=== PATIENT | male | born 1955 | race Caucasian/White ===

== ENCOUNTER → 2016-05-20 | Outpatient (CLI) | payer OTHER ==
[~2016-05-20] MED LIST: ADVIN50050 INH; ASPI81TA25 PO; CRDCD180 PO; HYDR-5688 PO; IPRA1AER2 INH; METO50TA7 PO; MULT-506 PO; OXGN; TAMS0.4C59 PO
== END | disposition home or self-care (01) ==
LOC: C.LAB 11:35
PROVIDERS: ATTEND Urology
DX: N40.1 Benign prostatic hyperplasia with lower urinary tract symptoms (principal)

== ENCOUNTER → 2016-05-26 | Outpatient (CLI) | payer OTHER ==
[~2016-05-26] MED LIST changes: +OPTIRAY 320 IV PRN
--- NOTE | 2016-05-26 10:40 | DIAGNOSTIC IMAGING REPORT ---
CT SCAN OF THE CHEST WITH IV CONTRAST CLINICAL HISTORY: Non-small cell lung cancer. COMPARISON STUDY: Chest CT scans dated 12/23/2015 and 05/23/2013. TECHNIQUE: Following the IV administration of 92 cc of Optiray 320, CT scan of the thorax was performed from the thoracic inlet to the upper abdomen. Images are reviewed in the axial, sagittal, and coronal planes. IV contrast was administered without complication. CT DOSE: 350.08 mGy.cm FINDINGS: Thyroid: Imaged portions of the thyroid gland are normal in size and attenuation. Thoracic aorta: There is mild atherosclerotic calcification of the thoracic aorta, which is normal in caliber and demonstrates standard 3-vessel arch anatomy. No dissection is seen. Pulmonary vasculature: The pulmonary trunk is normal in caliber. There are no filling defects identified in the central pulmonary vessels to indicate pulmonary embolus. Note that this examination was not protocoled for evaluation of the pulmonary arteries. Heart: The heart is normal in size and configuration, and without pericardial effusion. There are coronary artery calcifications. Lungs and pleural spaces: Advanced emphysema is noted. Again seen are postoperative changes/scarring and volume loss from right upper lobe pulmonary resection. There is mild compensatory hyperinflation of the left lung. No airspace consolidation or pleural effusion is identified. No concerning lesions are identified in the left lung. A 4 mm curvilinear nodular density at the right lung base on image #227 and 3 mm pulmonary pleural-based nodules in the left lower lobe on images #212 and 241 are unchanged dating back to 2013 and of doubtful significance. No concerning pulmonary lesion is identified. Minimal secretions are noted in the trachea. Mediastinum: There is no mediastinal lymphadenopathy. Janice: Clear. Axillae: There is no axillary lymphadenopathy. Upper abdomen: A tiny hiatal hernia is identified. Scattered subcentimeter hepatic hypodensities are too small for definitive characterization but similar to previous. Cholecystectomy clips are noted. No adrenal lesion is seen. Skeletal structures: The skeletal structures are osteopenic. No lytic or blastic bony lesions are seen. IMPRESSION: 1. Advanced emphysema and postoperative change from right upper lobe pulmonary resection. 2. There is no evidence of recurrent or metastatic disease in the thorax. 3. No airspace consolidation or pleural effusion is identified. 4. Additional findings as above. Electronically signed by: Shimon Stroud M.D. 05/26/2016 10:39 AM Dictated Date/Time: 05/26/2016 10:31 AM
== END | disposition home or self-care (01) ==
LOC: C.CTS 09:53
PROVIDERS: ATTEND Internal Medicine Hematology & Oncology
DX: C34.11 Malignant neoplasm of upper lobe, right bronchus or lung (principal); J43.9 Emphysema, unspecified; M85.80 Other specified disorders of bone density and structure, unspecified site

== ENCOUNTER → 2016-06-14 | Day surgery (SDC) | payer OTHER ==
[2016-06-08 08:50] VITALS: Ht 181.6 cm; Wt 95.5 kg
[~2016-06-14] VITALS: Ht 181.6 cm; Wt 95.5 kg
[~2016-06-14] MED LIST changes: -CRDCD180 PO; -HYDR-5688 PO; +LIDOCAINE HCL 2% 2 ML VIAL (20MG/ML) ONE; -OPTIRAY 320 IV PRN; +PROPOFOL IV EMULSION 10 MG/ML 20 ML VIAL IV ONE
--- NOTE | 2016-06-14 13:08 | Endo History and Physical ---
History & Physical Date of Service: Jun 14, 2016. Chief Complaint: screening Referring Physician: Dr. Rich Park and Dr.Tania Mccollum History of Present Illness For colonoscopy Past Medical History Thrombophlebitis, COPD Past Surgical History Hx Cardiac Surgery: No Hx Internal Defibrillator: No Hx Pacemaker: No Hx Abdominal Surgery: Yes (ALEJANDRO, APPY) Hx of Implantable Prosthesis: No Hx Post-Op Nausea and Vomiting: No Hx Cancer Surgery: Yes (RIGHT UPPER LOBE REMOVAL AND PARTIAL RIB RESECTION) Hx Thoracic Surgery: No Hx Orthopedic: Yes (C5-6 FUSION (SLIGHT LIMITED L-R), LUMBAR LAMINECTOMY) Hx Urinary Tract Surgery: No Family History Polyp Social History Smoking Status: Former Smoker Hx Substance Use: No Hx Alcohol Use: Yes (SOCIAL) Allergies Coded Allergies: BEE STING (Verified Allergy, Unknown, LOCAL SWELLING, 06/08/16) Diltiazem (Verified Allergy, Unknown, REDNESS "MADE ME LOOK LIKE A STRAWBERRY", 06/08/16) Current Medications Reported Home Medications Medications Dose Route/Sig Max Daily Dose Days Date Category Dose Instructions Oxygen Gas 2 Liters NA HS 06/08/16 Reported 3L NC O2 DURING DAY WITH STRENUOUS EXERCISE Combivent Respimat (Ipratropium-Albuterol) 1 Aer Aer 1 Puffs INH QID PRN 06/08/16 Reported Advair Diskus 500-50 Mcg/Dose (Fluticasone Prop/Salmeterol) 14 Puff/1 Inhaler Aerp 1 Puff INH BID 06/08/16 Reported Toprol-Xl (Metoprolol Succinate) 50 Mg Tabcr 50 Mg PO QAM 06/08/16 Reported Multivitamin (Multivitamins) Tab 1 Tab PO QAM 01/05/16 Reported Aspir-Low (Aspirin) 81 Mg Tab 1 Tab PO QPM 12/03/13 Reported Flomax (Tamsulosin Hcl) 0.4 Mg Cap 0.4 Mg PO QPM 03/09/12 Reported Vital Signs Weight (Kilograms): 95.45 Height (Feet): 5 Height (Inches): 11.5 Date Time Temp Pulse Resp B/P Pulse Ox O2 Delivery O2 Flow Rate FiO2 06/14/16 12:33 36.5 100 20 125/64 95 Room Air Physical Exam General Appearance: WD/WN Respiratory/Chest: Respiratory effort: no dyspnea Cardiovascular: Heart Auscultation: RRR Abdomen: Inspection & Palpation: soft Assessment and Plan For screening colonoscopy
--- NOTE | 2016-06-14 13:27 | GI REPORT ---
Procedure Date: 06/14/2016 12:53 PM Procedure: Colonoscopy Indications: Screening for colorectal malignant neoplasm Medicines: Propofol total dose 225 mg IV, Lidocaine 40 mg IV Complications: No immediate complications. Estimated Blood Loss: Estimated blood loss: none. Procedure: Pre-Anesthesia Assessment: - Prior to the procedure, a History and Physical was performed, and patient medications, allergies and sensitivities were reviewed. The patient's tolerance of previous anesthesia was reviewed. - The risks and benefits of the procedure and the sedation options and risks were discussed with the patient. All questions were answered and informed consent was obtained. After I obtained informed consent, the scope was passed under direct vision. Throughout the procedure, the patient's blood pressure, pulse, and oxygen saturations were monitored continuously. The Scope was introduced through the anus and advanced to the cecum, identified by appendiceal orifice and ileocecal valve. The colonoscopy was performed without difficulty. The patient tolerated the procedure well. The quality of the bowel preparation was excellent. Findings: Multiple diverticula were found in the entire colon. Impression: - Diverticulosis in the entire examined colon. - No specimens collected. Recommendation: - Discharge patient to home (ambulatory). - Continue present medications. - Repeat colonoscopy in 10 years for screening purposes. - Return to primary care physician PRN. Trevor Whitlock M.D. Trevor Whitlock MD 06/14/2016 1:25:45 PM This report has been signed electronically. Note Initiated On: 06/14/2016 12:53 PM I attest to the content of the Intraoperative Record and orders documented therein, exceptions below
--- NOTE | 2016-06-14 13:41 | Discharge Instructions ---
Endoscopy Patient Instructions Date / Procedure(s) Performed Jun 14, 2016. Colonoscopy Allergy Information Coded Allergies: BEE STING (Verified Allergy, Unknown, LOCAL SWELLING, 06/08/16) Diltiazem (Verified Allergy, Unknown, REDNESS "MADE ME LOOK LIKE A STRAWBERRY", 06/08/16) Discharge Date / Findings Jun 14, 2016. Diverticulosis Medication Instructions Stopped Medication(s): last dose ASA on 06/10 Restart Stopped Medication(s): resume meds Reported Home Medications Medications Dose Route/Sig Max Daily Dose Days Date Category Dose Instructions Oxygen Gas 2 Liters NA HS 06/08/16 Reported 3L NC O2 DURING DAY WITH STRENUOUS EXERCISE Combivent Respimat (Ipratropium-Albuterol) 1 Aer Aer 1 Puffs INH QID PRN 06/08/16 Reported Advair Diskus 500-50 Mcg/Dose (Fluticasone Prop/Salmeterol) 14 Puff/1 Inhaler Aerp 1 Puff INH BID 06/08/16 Reported Toprol-Xl (Metoprolol Succinate) 50 Mg Tabcr 50 Mg PO QAM 06/08/16 Reported Multivitamin (Multivitamins) Tab 1 Tab PO QAM 01/05/16 Reported Aspir-Low (Aspirin) 81 Mg Tab 1 Tab PO QPM 12/03/13 Reported Flomax (Tamsulosin Hcl) 0.4 Mg Cap 0.4 Mg PO QPM 03/09/12 Reported Provider Instructions Activity Restrictions - No exercising or heavy lifting for 24 hours. - Do not drink alcohol the day of the procedure. - Do not drive a car or operate machinery until the day after the procedure. - Do not make any important decisions or sign important papers in 24 hours after the procedure. Following Day: - Return to full activity which may include returning to work/school. Diet Start your diet with liquids and light foods (jello, soup, juice, toast). Then eat your usual diet if not nauseated. Treatment For Common After Affects For mild abdominal pain, bloating, or excessive gas: - Rest - Eat lightly - Lie on right side Follow-Up Information Follow-up with Dr. Rich Park and Dr.Tania Mccollum as scheduled Anesthesia Information What You Should Know You have had a procedure that required some medicine to reduce anxiety and discomfort. This treatment is called moderate sedation. After receiving the treatment, you may be sleepy, but you will be able to breathe on your own. The effects of the treatment may last for several hours. Follow these instructions along with Activity/Diet recommendations noted above: * Do NOT do anything where dizziness or clumsiness would be dangerous. * Rest quietly at home today, then you can be up and about tomorrow. * Have a responsible person stay with you the rest of today. * You may have had an I.V. today. If so, you may take the dressing off later today. Recommendations Call your doctor if: * Trouble breathing * Continuous vomiting for more than 24 hours * Temperature above 101 degrees * Severe abdominal pain or bloating * Pain not relieved by pain medicine ordered * There is increased drainage or redness from any incision * A large amount of rectal bleeding greater than 2-3 tablespoons. (If you had a polyp/s removed or have hemorrhoids, a small amount of blood - from the rectum is to be expected.) * You have any unanswered questions or concerns. IN THE EVENT OF A SERIOUS EMERGENCY, GO TO THE NEAREST EMERGENCY ROOM Your discharge instructions were prepared by provider Trevor Whitlock. Patient Instructions Signature Page Rodney Payan Patient (or Guardian) Signature/Date: I have read and understand the instructions given to me by my caregivers. Caregiver/RN/Doctor Signature/Date: The above-named patient and/or guardian has received patient instructions on this date. + Original Patient Signature Page (only) stays with chart. Please make copy for patient.
[2016-06-14 14:06] VITALS: BP 132/81; PULSE 87; O2SAT 95
--- NOTE | 2016-06-14 14:55 | Anesthesiology Progress Note ---
Anesthesia Post Op Note Date & Time Jun 14, 2016 at 14:54 Vital Signs Pain Intensity: 0 Vital Signs Past 12 Hours Date Time Temp Pulse Resp B/P Pulse Ox O2 Delivery O2 Flow Rate FiO2 06/14/16 14:06 87 20 132/81 95 Room Air 06/14/16 13:48 89 20 113/85 95 Room Air 06/14/16 13:38 89 20 105/60 99 Room Air 06/14/16 12:33 36.5 100 20 125/64 95 Room Air Notes Mental Status: alert / awake / arousable, participated in evaluation Pt Amnestic to Procedure: Yes Nausea / Vomiting: adequately controlled Pain: adequately controlled Airway Patency, RR, SpO2: stable & adequate BP & HR: stable & adequate Hydration State: stable & adequate Anesthetic Complications: no major complications apparent
== END | disposition home or self-care (01) ==
LOC: C.GI 12:12
PROVIDERS: ATTEND Internal Medicine Gastroenterology
DX: Z12.11 Encounter for screening for malignant neoplasm of colon (principal); K57.30 Diverticulosis of large intestine without perforation or abscess without bleeding; Z86.72 Personal history of thrombophlebitis; J44.9 Chronic obstructive pulmonary disease, unspecified; Z90.89 Acquired absence of other organs; Z90.49 Acquired absence of other specified parts of digestive tract; Z85.118 Personal history of other malignant neoplasm of bronchus and lung; Z98.1 Arthrodesis status; Z87.891 Personal history of nicotine dependence; Z91.030 Bee allergy status; Z88.8 Allergy status to other drugs, medicaments and biological substances; Z79.82 Long term (current) use of aspirin; Z83.71 Family history of colonic polyps; Z99.81 Dependence on supplemental oxygen; Z86.711 Personal history of pulmonary embolism; I10 Essential (primary) hypertension; Z92.21 Personal history of antineoplastic chemotherapy; Z92.3 Personal history of irradiation; I42.9 Cardiomyopathy, unspecified

== ENCOUNTER → 2016-12-01 | Outpatient (CLI) | payer OTHER ==
[~2016-12-01] MED LIST changes: -LIDOCAINE HCL 2% 2 ML VIAL (20MG/ML) ONE; -PROPOFOL IV EMULSION 10 MG/ML 20 ML VIAL IV ONE
--- NOTE | 2016-12-01 09:01 | DIAGNOSTIC IMAGING REPORT ---
CHEST 2 VIEWS ROUTINE HISTORY: 61 years-old Male NON-SMALL CELL LUNG CANCER C34.11 follow-up study in a patient with history of non-small cell lung cancer. COMPARISON: Radiograph 12/27/2015, chest CT 01/26/2017 TECHNIQUE: Frontal and lateral views of the chest FINDINGS: Cardiac silhouette is within normal limits. There is no pneumothorax, pleural effusion or focal airspace consolidation. There is chronic blunting of the right costophrenic angle. Postsurgical changes are again seen in the right upper lobe with background emphysema and hyperinflation. Reticular opacities in the lung bases and right perihilar region are unchanged suggesting scarring. Degenerative changes are seen about the bilateral shoulders. IMPRESSION: 1. No acute cardiopulmonary process. 2. Emphysema with postsurgical changes of the right upper lobe redemonstrated. The above report was generated using voice recognition software. It may contain grammatical, syntax or spelling errors. Electronically signed by: Rob Mendoza M.D. 12/01/2016 8:59 AM Dictated Date/Time: 12/01/2016 8:57 AM
== END | disposition home or self-care (01) ==
LOC: C.RAD 08:31
PROVIDERS: ATTEND Internal Medicine Hematology & Oncology
DX: C34.11 Malignant neoplasm of upper lobe, right bronchus or lung (principal)

== ENCOUNTER → 2016-12-03 | Outpatient (CLI) | payer OTHER ==
--- NOTE | 2016-12-03 11:07 | DIAGNOSTIC IMAGING REPORT ---
Right knee 2 views CLINICAL HISTORY: Right knee pain and COMPARISON: None. DISCUSSION: No acute fractures or dislocations are visualized. There are no erosive or destructive changes. There is a tiny dorsal patellar spur. There is equivocal trace joint effusion IMPRESSION: 1. Minor degenerative change. No fractures. No destructive lesions are visualized. Electronically signed by: Gustabo Rushing M.D. 12/03/2016 11:06 AM Dictated Date/Time: 12/03/2016 11:02 AM
== END | disposition home or self-care (01) ==
LOC: C.RAD1850 10:50
PROVIDERS: ATTEND Family Medicine
DX: M25.561 Pain in right knee (principal)

== ENCOUNTER → 2016-12-22 | Outpatient (CLI) | payer OTHER ==
--- NOTE | 2016-12-22 13:23 | DIAGNOSTIC IMAGING REPORT ---
ULTRASOUND VENOUS DOPPLER LWR EXT BILA CLINICAL HISTORY: M79.89 Leg swelling. Prior history of DVT. COMPARISON STUDY: September 2011 FINDINGS: Real-time and color flow Doppler imaging were performed. Flow was seen within the femoral, popliteal and calf veins with no intraluminal thrombus demonstrated. The saphenous vein is patent. IMPRESSION: No evidence of lower extremity DVT. Electronically signed by: Gustabo Rushing M.D. 12/22/2016 1:22 PM Dictated Date/Time: 12/22/2016 1:22 PM
== END | disposition home or self-care (01) ==
LOC: C.ULTRBC 12:24
PROVIDERS: ATTEND Internal Medicine Pulmonary Disease
DX: M79.89 Other specified soft tissue disorders (principal)

== ENCOUNTER → 2017-05-16 | Outpatient (CLI) | payer OTHER ==
[~2017-05-16] MED LIST changes: -METO50TA7 PO; +METO50TA8 PO
[2017-05-16 10:31] LABS: BLOOD UREA NITROGEN 16 mg/dl (7-18); CREATININE 1.24 mg/dl (0.60-1.40)
== END | disposition home or self-care (01) ==
LOC: C.LABSPEC 08:19
PROVIDERS: ATTEND Urology
DX: N48.6 Induration penis plastica (principal)

== ENCOUNTER → 2017-05-26 | Outpatient (CLI) | payer OTHER ==
[~2017-05-26] MED LIST changes: +OPTIRAY 320 IV PRN
--- NOTE | 2017-05-26 11:22 | DIAGNOSTIC IMAGING REPORT ---
CHEST CT WITH CONTRAST CT DOSE: 522.14 mGy.cm HISTORY: Lung cancer. Follow-up. TECHNIQUE: Multiaxial CT images of the chest were performed following the intravenous administration of contrast. A dose lowering technique was utilized adhering to the principles of ALARA. COMPARISON: Chest CT 05/26/2016. FINDINGS: No pneumothorax. No pleural effusions. Severe emphysema is again noted. Postoperative changes consistent with a right upper lobectomy. Focal severe narrowing at the proximal right middle lobe bronchus best seen on image 142 remains unchanged. Right hilar suture material is again noted. No new soft tissue nodularity to suggest recurrent disease. Focal calcified pleural plaque within the right posterior hemithorax remains unchanged. Stable mild loss within the right hemithorax due to the postoperative changes. Stable 7 mm subpleural nodule seen within the left lower lobe on image 237. Stable 3 mm subpleural nodule within the left lower lobe and stable 4 mm subpleural nodule within the left lower lobe on images 201 and 225, respectively. Stable 7 mm nodular density within the right lung base in image 210. No new or suspicious pulmonary nodules identified. No focal lung consolidations. Mild paramediastinal fibrotic change is again noted. No suspicious lytic or blastic osseous lesions. Partial resection of the right first and second ribs. Cholecystectomy. Hepatic steatosis. The spleen and adrenal glands are unremarkable. Right apical extrapleural thickening, unchanged. No mediastinal or hilar lymphadenopathy. The central pulmonary arteries are patent. Normal caliber thoracic aorta. IMPRESSION: 1. No significant change compared the prior study. No evidence for recurrent or metastatic disease within the chest. 2. Postoperative changes as described above. 3. Emphysema. Electronically signed by: Terrance Chen M.D. 05/26/2017 11:20 AM Dictated Date/Time: 05/26/2017 11:08 AM
== END | disposition home or self-care (01) ==
LOC: C.CTS 10:21
PROVIDERS: ATTEND Internal Medicine Hematology & Oncology
DX: C34.11 Malignant neoplasm of upper lobe, right bronchus or lung (principal); J43.9 Emphysema, unspecified

== ENCOUNTER 2017-06-30 13:29 | Inpatient (IN) | payer OTHER ==
[~2017-06-30] VITALS: Ht 180.3 cm; Wt 101.0 kg
[~2017-06-30 13:29] MED LIST changes: -OPTIRAY 320 IV PRN
[2017-06-30] MEDS ORDERED: SODIUM CHLORIDE 0.9% 1000ML 1,000 ML IV STA (13:59)
[2017-06-30] MEDS ORDERED: ONDANSETRON INJ 2 MG/ML 2 ML VIAL IV STA (13:59)
[2017-06-30] MEDS ORDERED: BENZONATATE 100MG CAP PO ONE ×2 (14:00→23:15)
[2017-06-30] MEDS ORDERED: TAMS0.4C38 PO (14:01)
[2017-06-30] MEDS ORDERED: NYSS/ PO (14:01)
[2017-06-30] MEDS ORDERED: ALBINSX INH (14:02)
[2017-06-30 14:25] LABS: BASO % 0.2 %; BASO ABS # 0.01 K/uL (0-0.2); EOS % 1.8 %; EOS ABS # 0.11 K/uL (0-0.5); HEMATOCRIT 38.7 % (42-52); HEMOGLOBIN 13.2 g/dL (14.0-18.0); IG# 0.01 K/uL (0.00-0.02); LYMPH % 16.9 %; LYMPH ABS # 1.06 K/uL (1.2-3.4); MEAN CELL VOLUME 86.8 fL (80-100); MEAN CORPUSCULAR HEMOGLOBIN 29.6 pg (25-34); MEAN CORPUSCULAR HGB CONC 34.1 g/dl (32-36); MEAN PLATELET VOLUME 9.7 fL (7.4-10.4); MONO % 7.7 %; MONO ABS # 0.48 K/uL (0.11-0.59); NEUT % 73.2 %; NEUT ABS # 4.59 K/uL (1.4-6.5); PLATELET COUNT 153 K/uL (130-400); RED CELL DISTRIBUTION WIDTH CV 13.5 % (11.5-14.5); WHITE BLOOD COUNT 6.26 K/uL (4.8-10.8)
--- NOTE | 2017-06-30 14:31 | DIAGNOSTIC IMAGING REPORT ---
SINGLE VIEW CHEST CLINICAL HISTORY: Cough and fever FINDINGS: 2 AP, portable, upright chest radiographs are compared to study dated 12/01/2016 and correlated with chest CT dated 05/26/2017. The examination is degraded by portable technique and patient rotation. The heart is enlarged. The pulmonary vasculature is noncongested. Advanced emphysema is similar to previous and there are postoperative changes and volume loss from right-sided pulmonary resection. There is no airspace consolidation typical for pneumonia or large pleural effusion. Bullous change is seen at the right apex. No pneumothorax is seen. The skeletal structures are osteopenic. Postoperative change is noted in the right sided ribs. IMPRESSION: 1. No acute cardiopulmonary abnormality. 2. Cardiomegaly, advanced emphysema, and postoperative change from right-sided pulmonary resection as above. Electronically signed by: Shimon Stroud M.D. 06/30/2017 2:30 PM Dictated Date/Time: 06/30/2017 2:28 PM
[2017-06-30 14:32] LABS: ISTAT CREATININE 1.1 mg/dl (0.6-1.3); ISTAT IONIZED CALCIUM 1.17 mmol/l (1.12-1.32)
[2017-06-30 14:40] LABS: BLOOD UREA NITROGEN 17 mg/dl (7-18); CALCIUM 8.5 mg/dl (8.5-10.1); CARBON DIOXIDE 28 mmol/L (21-32); CREATININE 1.22 mg/dl (0.60-1.40); GLUCOSE 118 mg/dl (70-99); SODIUM 135 mmol/L (136-145)
[2017-06-30 15:02] LABS: INFLUENZA B ANTIGEN Neg for Influ B (NEG)
[2017-06-30] MEDS ORDERED: LEVAQUIN 750MG / 150ML D5W IV STA (15:29)
[2017-06-30] MEDS ORDERED: METHYLPREDNISOLONE 125 MG VIAL IV STA (15:29)
[2017-06-30] MEDS ORDERED: ALBUTEROL 0.083% NEBU SOLN 3 ML VIAL INH STA (15:38)
[2017-06-30] MEDS ORDERED: OPTIRAY 320 IV PRN (15:45)
--- NOTE | 2017-06-30 16:22 | DIAGNOSTIC IMAGING REPORT ---
CT ANGIOGRAPHY OF THE CHEST, PULMONARY EMBOLUS PROTOCOL CLINICAL HISTORY: Tachycardia, hypoxia and cough. Chest discomfort. History of lung cancer. COMPARISON STUDY: Chest CT May 26, 2017 and chest radiograph performed earlier today. TECHNIQUE: Following IV administration of 93 mL of Optiray-320, helical axial images of the chest were obtained utilizing the pulmonary embolus protocol. Maximal intensity projections and sagittal and coronal reformats were viewed on an independent 3D workstation. IV contrast was administered without complication. A dose lowering technique was utilized adhering to the principles of ALARA. CT DOSE: 619.96 mGy.cm FINDINGS: No pulmonary emboli are identified although the segmental and subsegmental arteries are suboptimally assessed due to respiratory motion artifact. There is no evidence for thoracic aortic dissection. There is no pericardial effusion. No enlarged axillary, mediastinal or hilar lymph nodes are present. The patient is status post right upper lobectomy. Resection of multiple right upper ribs is noted. The postoperative appearance is unchanged. Severe emphysema is noted. A few pulmonary nodules are unchanged from earlier exams. These are benign given stability. There has been interval development of mild opacity within the lateral basilar segment of the right lower lobe since CT of May 26, 2017. There is no pneumothorax or pleural effusion. Mild bronchial wall thickening with mucus plugging within the left lower lobe is noted. No suspicious osseous lesion is present. Upper abdomen is unremarkable. Gallbladder is surgically absent. IMPRESSION: 1. No pulmonary emboli identified although segmental and subsegmental pulmonary arteries suboptimally assessed due to respiratory motion. 2. Status post right upper lobectomy. No evidence for recurrent malignancy within the chest. 3. Severe emphysema. 4. Interval development of mild opacity within the lateral basilar segment of the right lower lobe which may reflect a mild infectious process or atelectasis. Electronically signed by: Alexandr Pompa M.D. 06/30/2017 4:21 PM Dictated Date/Time: 06/30/2017 4:08 PM
[2017-06-30] MEDS ORDERED: HYDROCODONE/HOMATROPINE SYRUP 5MG/1.5MG 5ML UDP PO STA (17:07)
[2017-06-30] MEDS ORDERED: VANCOMYCIN CONSULT ACTIVE PRN (18:30)
[2017-06-30] MEDS ORDERED: CEFEPIME IV 2,000 MG in DEXTROSE 5% 100ML 100 ML IV SCH (18:30)
[2017-06-30] MEDS ORDERED: IPRATROPIUM BROMIDE/ALBUTEROL respimat INH INH PRN (18:30)
[2017-06-30] MEDS ORDERED: GUAIFENESIN 600 MG TABCR PO PRN (18:30)
[2017-06-30] MEDS ORDERED: ZOLPIDEM TARTRATE 5 MG TAB PO PRN ×2 (18:45)
[2017-06-30] MEDS ORDERED: POLYETHYLENE (MIRALAX) 17 GM PACK PO PRN (18:45)
[2017-06-30] MEDS ORDERED: MAGNESIUM HYDROXIDE SUSP 30 ML UDC PO PRN (18:45)
[2017-06-30] MEDS ORDERED: ONDANSETRON INJ 2 MG/ML 2 ML VIAL IV PRN (18:45)
[2017-06-30] MEDS ORDERED: ACETAMINOPHEN 325 MG TAB PO PRN (18:45)
[2017-06-30] MEDS ORDERED: ALUMINUM/MAGNESIUM/SIMETH (MAALOX MAX) 30 ML UDC PO PRN (18:45)
--- NOTE | 2017-06-30 18:46 | History and Physical ---
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 Patient also has COPD, chronic respiratory failure on 2-3 L oxygen at home, DJD status post spine fusion surgery, remote tobacco abuse and remote history of atrial flutter. Patient was at his baseline and tell about 1 month ago when he had severe upper respiratory tract infection, treated with doxycycline/prednisone. Followed by 2 courses of prednisone throughout the last month with minimal improvement. Last night he had severe diaphoresis, he woke up from sleep soaked with sweat. He also had continuous severe cough that appears to be nonproductive as he is unable to bring up any mucus from his chest . He was also breathing rapidly and had a heart rate of 130, home nebulizer did not help him with his symptoms . Then he developed right-sided and left-sided chest pain with cough, he presented to the ED for further evaluation and management . Never took his temperature with complaints of excessive diaphoresis/sweating Denies any abdominal pain, denies any burning sensation in the urine, admits to intermittent blood in the stool that has been worked out as an outpatient Past Medical/Surgical History Medical Problems: (1) Abdominal pain (2) COPD (chronic obstructive pulmonary disease) (3) COPD exacerbation (4) Hypoxia (5) Pancreatitis (6) Rectus sheath hematoma (7) Tachycardia Surgical Problems: (1) Hx of cholecystectomy (2) Hx of fusion of cervical spine Family History Gallbladder disease Heart disease Hypertension Lung disease Social History Smoking Status: Former Smoker Drug Use: none Marital Status: Housing status: lives with significant other Occupational Status: disabled Immunizations History of Tetanus Vaccine?: UNKNOWN History of Hepatitis B Vaccine: No Allergies Coded Allergies: BEE STING (Verified Allergy, Unknown, LOCAL SWELLING, 06/30/17) Diltiazem (Verified Allergy, Unknown, REDNESS "MADE ME LOOK LIKE A STRAWBERRY", 06/30/17) Home Medications Scheduled Aspirin (Aspir-Low), 81 MG PO QPM Fluticasone Prop/Salmeterol (Advair Diskus 500-50 Mcg/Dose), 1 PUFF INH BID Home O2 Therapy (Oxygen), 2 LITERS NA HS Metoprolol Succ (Toprol Xl) (Toprol-Xl), 50 MG PO QAM Multivitamin (Multivitamin), 1 TAB PO QAM Nystatin (Nystatin Suspension), 5 ML PO TID Tamsulosin Hcl (Flomax), 0.4 MG PO DAILY Scheduled PRN Albuterol Sulf (Albuterol Sulfate), 1 DOSE INH Q4H PRN for Shortness of Breath Ipratropium-Albuterol (Combivent Respimat), 1 PUFFS INH QID PRN for SOB/Wheezing Review of Systems Review of system Constitutional: fever / chills /excessive sweats /generalized weakness and fatigue Eyes: no blurring of vision / no eye pain / no discharge / no redness ENT: no hearing loss / no epistaxis /no swallowing problems Respiratory: Persistent cough /persistent wheezing significant SOB / no hemoptysis Cardiovascular: Pleuritic chest pain / no lower extremity edema / no palpitation Abdomen: no pain / no nausea / no vomiting / no constipation, intermittent blood in stool Musculoskeletal: no joint pain / no muscle pain / no joint swelling Genitourinary: no dysuria / no incontinence / no urinary retention Neurologic: no focal weakness / no numbness/tingling / no ataxia Psychiatric: no depression symptoms / no anxiety / no insomnia Endocrine: no excessive thirst / no excessive urination Hematologic: no abnormal bleeding / no bruising / no LN swelling Skin: No rash / no pallor Physical Exam Vital Signs Date Time Temp Pulse Resp B/P (MAP) Pulse Ox O2 Delivery O2 Flow Rate FiO2 06/30/17 17:15 131 28 112/62 94 Nasal Cannula 3.0 06/30/17 16:37 125 28 114/70 100 Nebulizer 7.0 06/30/17 15:11 125 32 96/68 95 Nasal Cannula 3.0 06/30/17 13:54 97 Nasal Cannula 3.0 06/30/17 13:32 36.6 102 22 119/64 97 Nasal Cannula 3.0 Physical examination General patient appears to be in moderate acute distress HEENT: Atraumatic , normocephalic /no jaundice /no pallor /anicteric /no dry mucous membrane /normal external ear inspection Neck: Supple /no swelling /central trach Heart: S1/S2 tachycardia /regular rate and rhythm/no gallop /no rub /no murmur Lungs: Decreased air entry bilaterally/decreased chest wall expansion/scattered rhonchi/no rales/bilateral wheezing/currently is using of accessory muscles of respiration Abdomen: Soft/nontender/no guarding/no rebound/no organomegaly/no pulsatile mass Musculoskeletal: No swelling/no edema/no tenderness/normal range of motion Neuro exam: Awake alert oriented 3/cranial nerves II through XII appear to be intact/sensation intact/moves all extremities/no abnormal movements Psychiatric evaluation: No depressed mood/normal affect Skin: No rash on exposed skin area/no erythema Extremity: Normal pulse/no pitting edema/no clubbing or cyanosis Endocrine/lymphatic: No obvious lymphadenopathy /no lymphedema Diagnostics Laboratory Results Results Past 24 Hours Test 06/30/17 00:00 06/30/17 14:13 06/30/17 14:19 Range/Units Influenza Type A Antigen Neg for Influ A NEG Influenza Type B Antigen Neg for Influ B NEG White Blood Count 6.26 4.8-10.8 K/uL Red Blood Count 4.46 4.7-6.1 M/uL Hemoglobin 13.2 14.0-18.0 g/dL Hematocrit 38.7 42-52 % Mean Corpuscular Volume 86.8 80-100 fL Mean Corpuscular Hemoglobin 29.6 25-34 pg Mean Corpuscular Hemoglobin Concent 34.1 32-36 g/dl Platelet Count 153 130-400 K/uL Mean Platelet Volume 9.7 7.4-10.4 fL Neutrophils (%) (Auto) 73.2 % Lymphocytes (%) (Auto) 16.9 % Monocytes (%) (Auto) 7.7 % Eosinophils (%) (Auto) 1.8 % Basophils (%) (Auto) 0.2 % Neutrophils # (Auto) 4.59 1.4-6.5 K/uL Lymphocytes # (Auto) 1.06 1.2-3.4 K/uL Monocytes # (Auto) 0.48 0.11-0.59 K/uL Eosinophils # (Auto) 0.11 0-0.5 K/uL Basophils # (Auto) 0.01 0-0.2 K/uL RDW Standard Deviation 43.0 36.4-46.3 fL RDW Coefficient of Variation 13.5 11.5-14.5 % Immature Granulocyte % (Auto) 0.2 % Immature Granulocyte # (Auto) 0.01 0.00-0.02 K/uL Sodium Level 135 136-145 mmol/L Potassium Level 4.0 3.5-5.1 mmol/L Chloride Level 103 98-107 mmol/L Carbon Dioxide Level 28 21-32 mmol/L Anion Gap 4.0 15.0 16-25 mmol/L Blood Urea Nitrogen 17 7-18 mg/dl Creatinine 1.22 0.60-1.40 mg/dl Est Creatinine Clear Calc Drug Dose 75.0 ml/min Estimated GFR () 73.2 Estimated GFR (Non- 63.1 BUN/Creatinine Ratio 13.9 10-20 Random Glucose 118 70-99 mg/dl Calcium Level 8.5 8.5-10.1 mg/dl Troponin I < 0.015 0-0.045 ng/ml Bedside Hemoglobin 12.9 14.0-18.0 g/dl Bedside Hematocrit 38 42-52 % Bedside Sodium 139 135-144 mEq/L Bedside Potassium 4.0 3.3-5.0 mEq/L Bedside Chloride 100 101-112 mEq/L Bedside Total CO2 29 24-31 mEq/l Bedside Blood Urea Nitrogen 18 7-18 mg/dl Bedside Creatinine 1.1 0.6-1.3 mg/dl Bedside Glucose (other) 122 70-99 mg/dl Bedside Ionized Calcium (Nicholas) 1.17 1.12-1.32 mmol/l Microbiology Results 06/30/17 Blood Culture, Ordered Pending 06/30/17 Blood Culture, Ordered Pending Diagnostic Radiology CT ANGIOGRAPHY OF THE CHEST, PULMONARY EMBOLUS PROTOCOL CLINICAL HISTORY: Tachycardia, hypoxia and cough. Chest discomfort. History of lung cancer. COMPARISON STUDY: Chest CT May 26, 2017 and chest radiograph performed earlier today. TECHNIQUE: Following IV administration of 93 mL of Optiray-320, helical axial images of the chest were obtained utilizing the pulmonary embolus protocol. Maximal intensity projections and sagittal and coronal reformats were viewed on an independent 3D workstation. IV contrast was administered without complication. A dose lowering technique was utilized adhering to the principles of ALARA. CT DOSE: 619.96 mGy.cm FINDINGS: No pulmonary emboli are identified although the segmental and subsegmental arteries are suboptimally assessed due to respiratory motion artifact. There is no evidence for thoracic aortic dissection. There is no pericardial effusion. No enlarged axillary, mediastinal or hilar lymph nodes are present. The patient is status post right upper lobectomy. Resection of multiple right upper ribs is noted. The postoperative appearance is unchanged. Severe emphysema is noted. A few pulmonary nodules are unchanged from earlier exams. These are benign given stability. There has been interval development of mild opacity within the lateral basilar segment of the right lower lobe since CT of May 26, 2017. There is no pneumothorax or pleural effusion. Mild bronchial wall thickening with mucus plugging within the left lower lobe is noted. No suspicious osseous lesion is present. Upper abdomen is unremarkable. Gallbladder is surgically absent. IMPRESSION: 1. No pulmonary emboli identified although segmental and subsegmental pulmonary arteries suboptimally assessed due to respiratory motion. 2. Status post right upper lobectomy. No evidence for recurrent malignancy within the chest. 3. Severe emphysema. 4. Interval development of mild opacity within the lateral basilar segment of the right lower lobe which may reflect a mild infectious process or atelectasis. Electronically signed by: Alexandr Pompa M.D. 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 Patient also has COPD, chronic respiratory failure on 2-3 L oxygen at home, presented to the hospital with right lower lobe pneumonia. Assessment Acute on chronic hypoxic respiratory failure secondary to below Recurrent right lower lobe pneumonia/healthcare associated COPD exacerbation History of Pancoast tumor status post chemotherapy/radiation/right upper lobe lobectomy Sinus tachycardia secondary to respiratory distress/bronchodilators Oral thrush Intermittent GI bleed Pleuritic chest pain Plan Admit patient to telemetry Start patient on bronchodilators, Xopenex/Atrovent 0.63 inhalation nebulizer 4 times daily Start patient on steroids, Solu-Medrol 60 mg IV every 6 hours Blood culture/sputum culture Influenza virus screen was negative Urine legionella antigen Mucinex Initiate broad-spectrum antibiotics covering typical and atypical microorganisms , currently on Vanco/cefepime/azithromycin, ordered nasal swab is negative for MRSA Vanco can be stopped, especially if the patient is stable Start patient on lactobacillus to prevent C. difficile EKG reviewed, no QTc prolongation, will start patient on azithromycin 500 mg IV daily which will have also anti-inflammatory benefit for COPD Add probiotic for C. difficile prevention Pulmonary consultation if no improvement as needed Pepcid for GI prophylaxis Heparin subcu for DVT prophylaxis Oxygen supplement Instructed to follow-up with his primary care physician regarding his intermittent GI bleed, patient stated that recent colonoscopy was negative Serial troponin rule out ACS Resuscitation Status VTE Prophylaxis Will order VTE Prophylaxis: Yes
--- NOTE | 2017-06-30 19:41 | EMERGENCY ROOM VISIT NOTE ---
History Report prepared by Myrna: Sal Morales Under the Supervision of: Dr. Humphrey Hines D.O. First contact with patient: 13:45 Chief Complaint: COUGH Stated Complaint: COUGH, CHEST DISCOMFORT History of Present Illness The patient is a 62 year old male who presents to the Emergency Room with complaints of chest pain that began last night. The patient has also been experiencing a persistent cough for the past 3 weeks. He notes that 3 weeks ago he began to experience common cold symptoms. He visited his primary care office who prescribed steroids and antibiotics. He finished the first prescription of medication and then went back to his PCP because his symptoms had not resolved. He was given another 10 day run of Steroids. The patient notes that his cough did start to improve following this second steroid prescription, but also developed Thrush. After finished the second prescription the cough has now started to return. The cough is not currently productive. The patients centralized chest pain is worsened with his cough, but is there persistently. The patient has a history of lung cancer with resection of the right upper lobe. He normally wears 2-3 L of Oxygen at baseline. He denies any other headache, change in vision, fevers, nausea, vomiting, diarrhea, pain with urination, and melena. Source of History: patient Onset: Last night Position: chest Timing: constant Modifying Factors (Worsening): other (Chest pain is worsened with cough) Modifying Factors (Relieving): other (Cough was relieved with strain of steroids) Associated Symptoms: + cough Review of Systems See HPI for pertinent positives & negatives. A total of 10 systems reviewed and were otherwise negative. Past Medical & Surgical Medical Problems: (1) COPD (chronic obstructive pulmonary disease) (2) COPD exacerbation (3) Pneumonia (4) Tachycardia Surgical Problems: (1) Hx of cholecystectomy (2) Hx of fusion of cervical spine Family History Gallbladder disease Heart disease Hypertension Lung disease Social History Smoking Status: Former Smoker Alcohol Use: occasionally Drug Use: none Marital Status: Housing Status: lives alone Occupation Status: disabled Current/Historical Medications Scheduled Aspirin (Aspir-Low), 81 MG PO QPM Fluticasone Prop/Salmeterol (Advair Diskus 500-50 Mcg/Dose), 1 PUFF INH BID Home O2 Therapy (Oxygen), 2 LITERS NA HS Metoprolol Succ (Toprol Xl) (Toprol-Xl), 50 MG PO QAM Multivitamin (Multivitamin), 1 TAB PO QAM Nystatin (Nystatin Suspension), 5 ML PO TID Tamsulosin Hcl (Flomax), 0.4 MG PO DAILY Scheduled PRN Albuterol Sulf (Albuterol Sulfate), 1 DOSE INH Q4H PRN for Shortness of Breath Ipratropium-Albuterol (Combivent Respimat), 1 PUFFS INH QID PRN for SOB/Wheezing Allergies Coded Allergies: BEE STING (Verified Allergy, Unknown, LOCAL SWELLING, 06/30/17) Diltiazem (Verified Allergy, Unknown, REDNESS "MADE ME LOOK LIKE A STRAWBERRY", 06/30/17) Physical Exam Vital Signs Date Time Temp Pulse Resp B/P (MAP) Pulse Ox O2 Delivery O2 Flow Rate FiO2 06/30/17 19:06 116 20 108/58 95 Nasal Cannula 3.0 06/30/17 17:15 131 28 112/62 94 Nasal Cannula 3.0 06/30/17 16:37 125 28 114/70 100 Nebulizer 7.0 06/30/17 15:11 125 32 96/68 95 Nasal Cannula 3.0 06/30/17 13:54 97 Nasal Cannula 3.0 06/30/17 13:32 36.6 102 22 119/64 97 Nasal Cannula 3.0 Physical Exam GENERAL: Sitting up in bed, alert, disheveled, talking in full sentences, slightly dyspneic, on nasal cannula non-toxic EYE EXAM: normal conjunctiva. OROPHARYNX: no exudate, no erythema, lips, buccal mucosa, and tongue normal and mucous membranes are moist NECK: supple, no nuchal rigidity, no adenopathy, non-tender LUNGS: diffuse wheezing bilaterally. Normal chest wall mechanics HEART: Tachycardic. no murmurs, S1 normal and S2 normal ABDOMEN: abdomen soft, non-tender, normo-active bowel sounds, no masses, no rebound or guarding. BACK: Back is symmetrical on inspection and there is no deformity, no midline tenderness, no CVA tenderness. SKIN: no rashes and no bruising UPPER EXTREMITIES: upper extremities are grossly normal. LOWER EXTREMITIES: No pitting edema. Calves are equal bilaterally. NEURO EXAM: Normal sensorium, cranial nerves II-XII grossly intact, normal speech, no gross weakness of arms, no gross weakness of legs. Medical Decision & Procedures ER Provider Diagnostic Interpretation: Radiology results as stated below per my review and the radiologist's interpretation: CT ANGIOGRAPHY OF THE CHEST, PULMONARY EMBOLUS PROTOCOL CLINICAL HISTORY: Tachycardia, hypoxia and cough. Chest discomfort. History of lung cancer. COMPARISON STUDY: Chest CT May 26, 2017 and chest radiograph performed earlier today. TECHNIQUE: Following IV administration of 93 mL of Optiray-320, helical axial images of the chest were obtained utilizing the pulmonary embolus protocol. Maximal intensity projections and sagittal and coronal reformats were viewed on an independent 3D workstation. IV contrast was administered without complication. A dose lowering technique was utilized adhering to the principles of ALARA. CT DOSE: 619.96 mGy.cm FINDINGS: No pulmonary emboli are identified although the segmental and subsegmental arteries are suboptimally assessed due to respiratory motion artifact. There is no evidence for thoracic aortic dissection. There is no pericardial effusion. No enlarged axillary, mediastinal or hilar lymph nodes are present. The patient is status post right upper lobectomy. Resection of multiple right upper ribs is noted. The postoperative appearance is unchanged. Severe emphysema is noted. A few pulmonary nodules are unchanged from earlier exams. These are benign given stability. There has been interval development of mild opacity within the lateral basilar segment of the right lower lobe since CT of May 26, 2017. There is no pneumothorax or pleural effusion. Mild bronchial wall thickening with mucus plugging within the left lower lobe is noted. No suspicious osseous lesion is present. Upper abdomen is unremarkable. Gallbladder is surgically absent. IMPRESSION: 1. No pulmonary emboli identified although segmental and subsegmental pulmonary arteries suboptimally assessed due to respiratory motion. 2. Status post right upper lobectomy. No evidence for recurrent malignancy within the chest. 3. Severe emphysema. 4. Interval development of mild opacity within the lateral basilar segment of the right lower lobe which may reflect a mild infectious process or atelectasis. Electronically signed by: Alexandr Pompa M.D. 06/30/2017 4:21 PM Dictated Date/Time: 06/30/2017 4:08 PM SINGLE VIEW CHEST CLINICAL HISTORY: Cough and fever FINDINGS: 2 AP, portable, upright chest radiographs are compared to study dated 12/01/2016 and correlated with chest CT dated 05/26/2017. The examination is degraded by portable technique and patient rotation. The heart is enlarged. The pulmonary vasculature is noncongested. Advanced emphysema is similar to previous and there are postoperative changes and volume loss from right-sided pulmonary resection. There is no airspace consolidation typical for pneumonia or large pleural effusion. Bullous change is seen at the right apex. No pneumothorax is seen. The skeletal structures are osteopenic. Postoperative change is noted in the right sided ribs. IMPRESSION: 1. No acute cardiopulmonary abnormality. 2. Cardiomegaly, advanced emphysema, and postoperative change from right-sided pulmonary resection as above. Electronically signed by: Shimon Stroud M.D. 06/30/2017 2:30 PM Dictated Date/Time: 06/30/2017 2:28 PM Laboratory Results 06/30/17 14:13 Red Blood Count 4.46, Mean Corpuscular Volume 86.8, Mean Corpuscular Hemoglobin 29.6, Mean Corpuscular Hemoglobin Concent 34.1, Mean Platelet Volume 9.7, Neutrophils (%) (Auto) 73.2, Lymphocytes (%) (Auto) 16.9, Monocytes (%) (Auto) 7.7, Eosinophils (%) (Auto) 1.8, Basophils (%) (Auto) 0.2, Neutrophils # (Auto) 4.59, Lymphocytes # (Auto) 1.06, Monocytes # (Auto) 0.48, Eosinophils # (Auto) 0.11, Basophils # (Auto) 0.01 06/30/17 14:13 Test 06/30/17 00:00 06/30/17 14:13 06/30/17 14:19 06/30/17 19:11 Influenza Type A Antigen Neg for Influ A (NEG) Influenza Type B Antigen Neg for Influ B (NEG) White Blood Count 6.26 K/uL (4.8-10.8) Red Blood Count 4.46 M/uL (4.7-6.1) Hemoglobin 13.2 g/dL (14.0-18.0) Hematocrit 38.7 % (42-52) Mean Corpuscular Volume 86.8 fL (80-100) Mean Corpuscular Hemoglobin 29.6 pg (25-34) Mean Corpuscular Hemoglobin Concent 34.1 g/dl (32-36) Platelet Count 153 K/uL (130-400) Mean Platelet Volume 9.7 fL (7.4-10.4) Neutrophils (%) (Auto) 73.2 % Lymphocytes (%) (Auto) 16.9 % Monocytes (%) (Auto) 7.7 % Eosinophils (%) (Auto) 1.8 % Basophils (%) (Auto) 0.2 % Neutrophils # (Auto) 4.59 K/uL (1.4-6.5) Lymphocytes # (Auto) 1.06 K/uL (1.2-3.4) Monocytes # (Auto) 0.48 K/uL (0.11-0.59) Eosinophils # (Auto) 0.11 K/uL (0-0.5) Basophils # (Auto) 0.01 K/uL (0-0.2) RDW Standard Deviation 43.0 fL (36.4-46.3) RDW Coefficient of Variation 13.5 % (11.5-14.5) Immature Granulocyte % (Auto) 0.2 % Immature Granulocyte # (Auto) 0.01 K/uL (0.00-0.02) Est Creatinine Clear Calc Drug Dose 75.0 ml/min Estimated GFR () 73.2 Estimated GFR (Non- 63.1 BUN/Creatinine Ratio 13.9 (10-20) Calcium Level 8.5 mg/dl (8.5-10.1) Troponin I < 0.015 ng/ml (0-0.045) Bedside Hemoglobin 12.9 g/dl (14.0-18.0) Bedside Hematocrit 38 % (42-52) Bedside Sodium 139 mEq/L (135-144) Bedside Potassium 4.0 mEq/L (3.3-5.0) Bedside Chloride 100 mEq/L (101-112) Bedside Total CO2 29 mEq/l (24-31) Anion Gap 15.0 mmol/L (16-25) Bedside Blood Urea Nitrogen 18 mg/dl (7-18) Bedside Creatinine 1.1 mg/dl (0.6-1.3) Bedside Glucose (other) 122 mg/dl (70-99) Bedside Ionized Calcium (Nicholas) 1.17 mmol/l (1.12-1.32) Laboratory results per my review. Medications Administered Medications (Trade) Dose Ordered Sig/Camilo Route Start Time Stop Time Status Last Admin Dose Admin Sodium Chloride 1,000 ml @ 999 mls/hr Q1H1M STAT IV 06/30/17 13:59 06/30/17 14:59 DC 06/30/17 14:22 999 MLS/HR Ondansetron HCl (Zofran Inj) 4 mg NOW STAT IV 06/30/17 13:59 06/30/17 14:00 DC 06/30/17 14:20 4 MG Benzonatate (Tessalon Perles Cap) 100 mg NOW ONCE PO 06/30/17 14:00 06/30/17 14:01 DC 06/30/17 14:20 100 MG Methylprednisolone Sodium Succinate (Solu-Medrol IV) 125 mg NOW STAT IV 06/30/17 15:29 06/30/17 15:30 DC 06/30/17 16:36 125 MG Levofloxacin (Levaquin / D5W) 750 mg NOW STAT IV 06/30/17 15:29 06/30/17 15:30 DC 06/30/17 16:35 750 MG Albuterol Sulfate (Ventolin 0.083% 2.5MG/3ML Neb) 5 mg NOW STAT INH 06/30/17 15:38 06/30/17 15:40 DC 06/30/17 16:36 5 MG Hydrocodone Bit/ Homatropine Methylb (Hycodan Syrup) 5 ml NOW STAT PO 06/30/17 17:07 06/30/17 17:08 DC 06/30/17 17:14 5 ML ECG Per My Interpretation Indication: SOB/dyspnea Rate (beats per minute): 105 Rhythm: sinus tachycardia Findings: other (Normal [place], no ectopy) Change: REPEAT EKG SHOWS: Sinus Tachycardia 132, 1st degree AV block, Normal [place] ED Course ED COURSE: Vital signs were reviewed and showed normal vitals. The patients medical record was reviewed The above diagnostic studies were performed and reviewed. ED treatments and interventions as stated above. 1350: The patient was evaluated in room B3B. A complete history and physical examination was performed. 1359: Ordered Zofran 4 mg IV, Sodium Chloride 1000 mL @ 999 mL/hr IV. 1400: Ordered Benzonatate 100 mg PO. 1529: Ordered Levofloxacin 750 mg IV, Solu-Medrol 125 mg IV. 1533: I checked on the patient at this time. He is tachycardic and hypoxic. He will receive another nebulizer treatment. 1538: Ordered Albuterol Sulfate 5 mg INH 1632: I checked on the patient. 1643: I discussed the case with Dr. Naresh MIN Hospitalist. He will evaluate the patient for further treatment. 1706; I reevaluated the patient. He wanted more medicine for the cough. 1707: Ordered Hydrocodone 5 mg PO. 1715: Upon reevaluation, the patient is resting in bed.I discussed my findings with the patient and he understands and agrees with the treatment plan. Based on the patients age, coexisting illnesses, exam and lab findings the decision to treat as an inpatient was made. The patient remained stable while under my care. The patient will be evaluated for further management. Medical Decision Differential diagnoses includes but is not limited to pneumonia, bronchitis, COPD/Asthma exacerbation, pneumothorax, pulmonary embolism, congestive heart failure, acute coronary syndrome. Patient is a 60-year-old male who presents the ER for shortness of breath. He has a history of a previous lung resection secondary to cancer. Productive cough for the past 3 weeks which recently got worst over the past 1 day associated with a runny nose. He does have chest pain with coughing. CBC along with BMP was unremarkable. Troponin was negative. Influence was negative. Chest x-ray was unremarkable. CT PE did show pneumonia. He was hypoxic requiring 3 L nasal cannula which he normally only wears oxygen at night. Heart rate did increase significantly following the nebs in the 130s. EKG showed a sinus tachycardia. Patient was given fluids, antibiotics and steroids. He was updated at bedside. He was admitted to internal medicine for further workup. Medication Reconcilliation Current Medication List: was personally reviewed by me Blood Pressure Screening Patient's blood pressure: Normal blood pressure Consults Time Called: 1639 Consulting Physician: Dr. Naresh MIN Hospitalist Returned Call: 1643 I discussed the case with Dr. Naresh MIN Hospitalist. He will evaluate the patient for further treatment. Impression Primary Impression: Pneumonia Additional Impressions: Tachycardia COPD exacerbation Scribe Attestation The scribe's documentation has been prepared under my direction and personally reviewed by me in its entirety. I confirm that the note above accurately reflects all work, treatment, procedures, and medical decision making performed by me. Departure Information Dispostion Being Evaluated By Hospitalist Referrals Aggie Mccollum MD (PCP) Patient Instructions My [facility] Problem Qualifiers Primary Impression: Pneumonia Pneumonia type: due to unspecified organism Laterality: unspecified laterality Lung location: unspecified part of lung Qualified Codes: J18.9 - Pneumonia, unspecified organism
[2017-06-30 19:45] VITALS: BP 93/52; PULSE 107; TEMP 36.9; O2SAT 96; Ht 180.3 cm; Wt 101.0 kg
[2017-06-30 19:59] LABS: INR 0.9 (0.9-1.1); PTT PATIENT 28.6 SECONDS (21.0-31.0)
--- NOTE | 2017-06-30 20:31 | Pharmacy Progress Note ---
Pharmacy Abx Initial Consult Date of Service Jun 30, 2017. Pharmacy Dosing Scope Date of Consult: 07/02/17 Consultation requested by: Dr. Lara Pharmacy is consulted to initiate vancomycin IV dosing therapy, order appropriate labs and adjust drug dose/frequency. Subjective The patient is a 62 year old male admitted on Jun 30, 2017 at 18:49. Objective Height (Feet): 5 Height (Inches): 11.00 Weight (Kilograms): 98.200 Vital Signs (Past 12Hrs) Vital Signs Past 12 Hours Date Time Temp Pulse Resp B/P (MAP) Pulse Ox O2 Delivery O2 Flow Rate FiO2 06/30/17 19:06 116 20 108/58 95 Nasal Cannula 3.0 06/30/17 17:15 131 28 112/62 94 Nasal Cannula 3.0 06/30/17 16:37 125 28 114/70 100 Nebulizer 7.0 06/30/17 15:11 125 32 96/68 95 Nasal Cannula 3.0 06/30/17 13:54 97 Nasal Cannula 3.0 06/30/17 13:32 36.6 102 22 119/64 97 Nasal Cannula 3.0 Lab Results (24Hrs) Laboratory Tests (24 Hours) Test 06/30/17 14:13 White Blood Count 6.26 K/uL (4.8-10.8) Red Blood Count 4.46 M/uL (4.7-6.1) L Hemoglobin 13.2 g/dL (14.0-18.0) L Hematocrit 38.7 % (42-52) L Mean Corpuscular Volume 86.8 fL (80-100) Mean Corpuscular Hemoglobin 29.6 pg (25-34) Mean Corpuscular Hemoglobin Concent 34.1 g/dl (32-36) Platelet Count 153 K/uL (130-400) Mean Platelet Volume 9.7 fL (7.4-10.4) Neutrophils (%) (Auto) 73.2 % Lymphocytes (%) (Auto) 16.9 % Monocytes (%) (Auto) 7.7 % Eosinophils (%) (Auto) 1.8 % Basophils (%) (Auto) 0.2 % Neutrophils # (Auto) 4.59 K/uL (1.4-6.5) Lymphocytes # (Auto) 1.06 K/uL (1.2-3.4) L Monocytes # (Auto) 0.48 K/uL (0.11-0.59) Eosinophils # (Auto) 0.11 K/uL (0-0.5) Basophils # (Auto) 0.01 K/uL (0-0.2) Micro Results Date/Time Source Procedure Growth Status 06/30/17 19:17 Blood Blood Culture Pending Received 06/30/17 19:11 Blood Blood Culture Pending Received Risk Factors for Resistance * Antimicrobial use within the last 90 days doxycycline (plus 2 courses of prednisone) * COPD on home oxygen Assessment & Plan Assessment 62 year old male admitted with worsening pulmonary function after a course of doxycycline and several courses of oral prednisone. H/o COPD Plan vancomycin for treatment of COPD exacerbation/PNA Vancomycin IV * Loading dose: 2500 mg (25 mg/kg) * Maintenance dose: 1500 mg IV (15 mg/kg) every 12 hours * Goal trough level for pulmonary indication : 15 to 20 mcg/mL * Trough ordered for 07/02/17 prior to 0900 dose Pharmacy will continue to follow and will adjust dose/frequency as necessary. Thank you.
[2017-06-30] MEDS ORDERED: VANCOMYCIN IV 2,500 MG in SODIUM CHLORIDE 0.9% 500ML 500 ML IV ONE (21:00)
[2017-06-30] MEDS: IPRATROPIUM BROMIDE NEB SOLN 0.02% 2.5 ML VIAL INH SCH (21:00)
[2017-06-30] MEDS: BUDESONIDE 0.5 MG/2 ML VIAL (PULMICORT) INH SCH (21:00)
[2017-06-30] MEDS ORDERED: LEVALBUTEROL/IPRATROPIUM NEB INH SCH (21:00)
[2017-06-30] MEDS: LEVALBUTEROL 0.63MG/3 ML NEB INH SCH (21:00)
[2017-06-30] MEDS ORDERED: FLUTICASONE/SALMETEROL (ADVAIR) 500/50 INH 14 PUFF INH SCH (21:00)
[2017-06-30 21:01] VITALS: BP 119/77; PULSE 111; TEMP 36.7; O2SAT 93
[2017-06-30 21:03] VITALS: PULSE 108; O2SAT 97
[2017-06-30] MEDS: SODIUM CHLORIDE 0.9% 1000ML 1,000 ML IV SCH (21:07)
[2017-06-30] MEDS: CEFEPIME IV 2,000 MG in SYRINGE 7.5 ML IV SCH (21:07)
[2017-06-30] MEDS: AZITHROMYCIN IV 500 MG in DEXTROSE 5% 250ML 250 ML IV SCH (21:14)
[2017-06-30] MEDS: NYSTATIN SUSP 500,000 U/5 ML UDC PO SCH (21:16)
[2017-06-30] MEDS: GUAIFENESIN 600 MG TABCR PO SCH (21:16)
[2017-06-30] MEDS: ASPIRIN 81 MG ECTAB PO SCH (21:17)
[2017-06-30] MEDS: METHYLPREDNISOLONE IV 60 MG in SYRINGE 0 ML IV SCH (21:46)
[2017-06-30] MEDS: HEPARIN SOD 5000 UNIT/0.5 ML CARP SQ SCH (22:21)
[2017-07-01] VITALS (16 sets, daily range): BP systolic 91–132; BP diastolic 46–69; PULSE 56–106; TEMP 36.3–36.7; O2SAT 93–98
[2017-07-01] MEDS: LEVALBUTEROL 0.63MG/3 ML NEB INH SCH ×4 (02:02→19:01)
[2017-07-01] MEDS: IPRATROPIUM BROMIDE NEB SOLN 0.02% 2.5 ML VIAL INH SCH ×4 (02:02→19:01)
[2017-07-01] MEDS: METHYLPREDNISOLONE IV 60 MG in SYRINGE 0 ML IV SCH ×4 (03:40→21:43)
[2017-07-01] MEDS: CEFEPIME IV 2,000 MG in SYRINGE 7.5 ML IV SCH ×3 (05:54→21:43)
[2017-07-01] MEDS: HEPARIN SOD 5000 UNIT/0.5 ML CARP SQ SCH ×3 (05:56→21:41)
[2017-07-01 06:54] LABS: HEMATOCRIT 35.9 % (42-52); HEMOGLOBIN 12.1 g/dL (14.0-18.0); IG# 0.03 K/uL (0.00-0.02); LYMPH % 5.6 %; MEAN CELL VOLUME 86.3 fL (80-100); MEAN CORPUSCULAR HEMOGLOBIN 29.1 pg (25-34); MEAN CORPUSCULAR HGB CONC 33.7 g/dl (32-36); MEAN PLATELET VOLUME 9.3 fL (7.4-10.4); MONO % 1.3 %; MONO ABS # 0.09 K/uL (0.11-0.59); NEUT % 92.7 %; NEUT ABS # 6.68 K/uL (1.4-6.5); PLATELET COUNT 144 K/uL (130-400); RED CELL DISTRIBUTION WIDTH CV 13.6 % (11.5-14.5)
[2017-07-01] MEDS: BUDESONIDE 0.5 MG/2 ML VIAL (PULMICORT) INH SCH ×2 (07:07→19:02)
[2017-07-01 07:09] LABS: HEMOGLOBIN A1C 6.2 % (4.5-5.6)
[2017-07-01 07:27] LABS: ALBUMIN 2.9 gm/dl (3.4-5.0); ALT/SGPT 27 U/L (12-78); AST/SGOT 16 U/L (15-37); BLOOD UREA NITROGEN 15 mg/dl (7-18); CALCIUM 8.6 mg/dl (8.5-10.1); CARBON DIOXIDE 26 mmol/L (21-32); GLUCOSE 175 mg/dl (70-99); SODIUM 135 mmol/L (136-145)
[2017-07-01 07:32] LABS: ALKALINE PHOSPHATASE 67 U/L (45-117); PHOSPHORUS 2.5 mg/dl (2.5-4.9); TOTAL PROTEIN 6.8 gm/dl (6.4-8.2)
[2017-07-01] MEDS: TAMSULOSIN HCL 0.4 MG CAP PO SCH (08:09)
[2017-07-01] MEDS: GUAIFENESIN 600 MG TABCR PO SCH ×2 (08:09→20:52)
[2017-07-01] MEDS: NYSTATIN SUSP 500,000 U/5 ML UDC PO SCH ×3 (08:09→20:52)
[2017-07-01] MEDS: BENZONATATE 100MG CAP PO PRN ×3 (08:10→21:07)
[2017-07-01] MEDS: LACTOBACILLUS ACIDOPHILUS (FLORANEX) TAB PO SCH ×3 (08:11→16:48)
[2017-07-01] MEDS: METOPROLOL SUCC 50MG EXT REL TAB PO SCH (08:11)
[2017-07-01] MEDS ORDERED: VANCOMYCIN IV 1,500 MG in SODIUM CHLORIDE 0.9% 500ML 500 ML IV SCH (09:00)
--- NOTE | 2017-07-01 10:22 | Hospitalist Progress Note ---
Hospitalist Progress Note Date of Service Jul 01, 2017. (Talisha Arboleda .BRIAN) Subjective Pt evaluation today including: conversation w/ patient, physical exam, chart review, lab review, review of studies, review of inpatient medication list Voiding: no voiding problems Mr. Payan is feeling better than he had been when he came in. No further chest pain, cough is improving though still moist and productive of yellow sputum. He did not have any sweats, aches or chills over the night. His heart rate had been tachycardic over the night but is trending down, now around 100 bpm NSR. Patient states his normal heart rate is in the 90s. He takes metoprolol for tachycardia that began with his chemo. ROS Constitutional: no chills, aches, sweats or fever Respiratory: see HPI Cardiac: no chest pain, palpitations, edema, orthopnea or lightheadedness GI: no abdominal pain, nausea, vomiting, diarrhea or constipation : no dysuria or hesitancy Extremities: no joint pain or weakness Skin: no rash All other systems reviewed and negative (Talisha Arboleda CRNP) Medications Medications Administered Medications (Trade) Dose Ordered Sig/Camilo Route Start Time Stop Time Status Last Admin Dose Admin Sodium Chloride 1,000 ml @ 999 mls/hr Q1H1M STAT IV 06/30/17 13:59 06/30/17 14:59 DC 06/30/17 14:22 999 MLS/HR Ondansetron HCl (Zofran Inj) 4 mg NOW STAT IV 06/30/17 13:59 06/30/17 14:00 DC 06/30/17 14:20 4 MG Benzonatate (Tessalon Perles Cap) 100 mg NOW ONCE PO 06/30/17 14:00 06/30/17 14:01 DC 06/30/17 14:20 100 MG Methylprednisolone Sodium Succinate (Solu-Medrol IV) 125 mg NOW STAT IV 06/30/17 15:29 06/30/17 15:30 DC 06/30/17 16:36 125 MG Levofloxacin (Levaquin / D5W) 750 mg NOW STAT IV 06/30/17 15:29 06/30/17 15:30 DC 06/30/17 16:35 750 MG Albuterol Sulfate (Ventolin 0.083% 2.5MG/3ML Neb) 5 mg NOW STAT INH 06/30/17 15:38 06/30/17 15:40 DC 06/30/17 16:36 5 MG Hydrocodone Bit/ Homatropine Methylb (Hycodan Syrup) 5 ml NOW STAT PO 06/30/17 17:07 06/30/17 17:08 DC 06/30/17 17:14 5 ML Aspirin (Ecotrin Tab) 81 mg QPM PO 06/30/17 21:00 07/30/17 20:59 06/30/17 21:17 81 MG Metoprolol Succinate (Toprol Xl Tab) 50 mg QAM PO 07/01/17 09:00 07/31/17 08:59 07/01/17 08:11 50 MG Nystatin (Mycostatin Susp) 5 ml TID PO 06/30/17 21:00 07/30/17 20:59 07/01/17 08:09 5 ML Tamsulosin HCl (Flomax Cap) 0.4 mg DAILY PO 07/01/17 09:00 07/31/17 08:59 07/01/17 08:09 0.4 MG Budesonide (Pulmicort Respules 0.5MG/ 2ML Neb Soln) 0.5 mg BIDR INH 06/30/17 20:00 07/30/17 19:59 07/01/17 07:07 0.5 MG Methylprednisolone Sodium Succinate 60 mg/Syringe 0.96 ml @ 1.5 mls/min Q6H IV 06/30/17 22:00 07/30/17 18:29 07/01/17 03:40 1.5 MLS/MIN Azithromycin 500 mg/Dextrose 255 ml @ 125 mls/hr Q24H IV 06/30/17 21:00 07/07/17 18:29 06/30/17 21:14 125 MLS/HR Lactobacillus Acidophilus (Floranex Tab) 4 tab TIDM PO 07/01/17 08:00 07/31/17 07:59 07/01/17 08:11 4 TAB Vancomycin HCl 2500 mg/Sodium Chloride 550 ml @ 200 mls/hr NOW ONCE IV 06/30/17 21:00 06/30/17 23:44 DC 06/30/17 21:13 200 MLS/HR Guaifenesin (Mucinex Contr Rel Tab) 600 mg Q12 PO 06/30/17 21:00 07/30/17 20:59 07/01/17 08:09 600 MG Heparin Sodium (Porcine) (Heparin Sq 5000 Unit/0.5ml) 5,000 unit Q8 SQ 06/30/17 22:00 07/30/17 21:59 07/01/17 05:56 5,000 UNIT Sodium Chloride 1,000 ml @ 100 mls/hr Q10H IV 06/30/17 18:42 07/30/17 18:41 06/30/17 21:07 35 MLS/HR Ipratropium Carroll (Atrovent 0.02% 0.5MG/2.5ML Neb) 0.5 mg Q6R INH 06/30/17 21:00 07/30/17 20:59 07/01/17 07:06 0.5 MG Levalbuterol (Xopenex 0.63 Mg/ 3 Ml Neb) 0.63 mg Q6R INH 06/30/17 21:00 07/30/17 20:59 07/01/17 07:06 0.63 MG Cefepime HCl 2000 mg/Syringe 20 ml @ 5 mls/min Q8 IV 06/30/17 20:30 07/07/17 20:29 07/01/17 05:54 5 MLS/MIN Vancomycin HCl 1500 mg/Sodium Chloride 530 ml @ 200 mls/hr Q12H IV 07/01/17 09:00 07/06/17 23:59 07/01/17 08:11 200 MLS/HR Benzonatate (Tessalon Perles Cap) 100 mg TID PRN PO 06/30/17 23:15 07/30/17 23:14 07/01/17 08:10 100 MG Benzonatate (Tessalon Perles Cap) 100 mg NOW ONCE PO 06/30/17 23:15 06/30/17 23:47 DC 07/01/17 00:10 100 MG (Talisha Arboleda, BRIAN) Objective Vital Signs Date Time Temp Pulse Resp B/P (MAP) Pulse Ox O2 Delivery O2 Flow Rate FiO2 07/01/17 08:00 95 Nasal Cannula 2.5 07/01/17 07:46 36.5 56 18 113/67 (82) 94 2.0 07/01/17 07:07 99 18 96 Nasal Cannula 2.0 07/01/17 04:46 36.5 100 19 98/58 (71) 93 Nasal Cannula 2.0 07/01/17 04:05 Nasal Cannula 2.5 07/01/17 02:03 104 20 97 Nasal Cannula 2.0 07/01/17 00:00 36.7 103 18 111/67 (82) 97 Nasal Cannula 2.0 07/01/17 00:00 Nasal Cannula 2.5 06/30/17 21:03 108 20 97 Nasal Cannula 2.0 06/30/17 21:01 36.7 111 20 119/77 (91) 93 Nasal Cannula 2.0 06/30/17 19:45 36.9 107 20 93/52 96 Nasal Cannula 2.0 06/30/17 19:06 116 20 108/58 95 Nasal Cannula 3.0 06/30/17 17:15 131 28 112/62 94 Nasal Cannula 3.0 06/30/17 16:37 125 28 114/70 100 Nebulizer 7.0 06/30/17 15:11 125 32 96/68 95 Nasal Cannula 3.0 06/30/17 13:54 97 Nasal Cannula 3.0 06/30/17 13:32 36.6 102 22 119/64 97 Nasal Cannula 3.0 (Talisha Arboleda CRNP) Physical Exam Notes: General: no distress Eyes: normal inspection, PERLL Respiratory: chest non tender, diffuse expiratory wheezes bilaterally, no respiratory distress, no accessory muscle use Cardiac: regular rate and rhythm, no rub or gallop, no murmur, no edema, no jvd GI/: active bowel sounds, no abd pain or tenderness, soft, non distended Extremities: normal range of motion, normal strength, non tender Neuro/Psych: alert and oriented x 3, normal mood and affect Skin: normal color, dry (Talisha Arboleda CRNP) Laboratory Results Last 24 Hours Test 06/30/17 14:13 06/30/17 14:19 06/30/17 20:18 06/30/17 22:23 White Blood Count 6.26 K/uL Red Blood Count 4.46 M/uL Hemoglobin 13.2 g/dL Hematocrit 38.7 % Mean Corpuscular Volume 86.8 fL Mean Corpuscular Hemoglobin 29.6 pg Mean Corpuscular Hemoglobin Concent 34.1 g/dl Platelet Count 153 K/uL Mean Platelet Volume 9.7 fL Neutrophils (%) (Auto) 73.2 % Lymphocytes (%) (Auto) 16.9 % Monocytes (%) (Auto) 7.7 % Eosinophils (%) (Auto) 1.8 % Basophils (%) (Auto) 0.2 % Neutrophils # (Auto) 4.59 K/uL Lymphocytes # (Auto) 1.06 K/uL Monocytes # (Auto) 0.48 K/uL Eosinophils # (Auto) 0.11 K/uL Basophils # (Auto) 0.01 K/uL RDW Standard Deviation 43.0 fL RDW Coefficient of Variation 13.5 % Immature Granulocyte % (Auto) 0.2 % Immature Granulocyte # (Auto) 0.01 K/uL Prothrombin Time 9.5 SECONDS Prothromb Time International Ratio 0.9 Activated Partial Thromboplast Time 28.6 SECONDS Partial Thromboplastin Ratio 1.1 Sodium Level 135 mmol/L Potassium Level 4.0 mmol/L Chloride Level 103 mmol/L Carbon Dioxide Level 28 mmol/L Anion Gap 4.0 mmol/L 15.0 mmol/L Blood Urea Nitrogen 17 mg/dl Creatinine 1.22 mg/dl Est Creatinine Clear Calc Drug Dose 75.0 ml/min Estimated GFR () 73.2 Estimated GFR (Non- 63.1 BUN/Creatinine Ratio 13.9 Random Glucose 118 mg/dl Calcium Level 8.5 mg/dl Troponin I < 0.015 ng/ml Hepatitis C Antibody Screen NEG Bedside Hemoglobin 12.9 g/dl Bedside Hematocrit 38 % Bedside Sodium 139 mEq/L Bedside Potassium 4.0 mEq/L Bedside Chloride 100 mEq/L Bedside Total CO2 29 mEq/l Bedside Blood Urea Nitrogen 18 mg/dl Bedside Creatinine 1.1 mg/dl Bedside Glucose (other) 122 mg/dl Bedside Ionized Calcium (Nicholas) 1.17 mmol/l Bedside Glucose 144 mg/dl Test 07/01/17 00:08 07/01/17 06:43 07/01/17 06:47 Troponin I < 0.015 ng/ml < 0.015 ng/ml White Blood Count 7.20 K/uL Red Blood Count 4.16 M/uL Hemoglobin 12.1 g/dL Hematocrit 35.9 % Mean Corpuscular Volume 86.3 fL Mean Corpuscular Hemoglobin 29.1 pg Mean Corpuscular Hemoglobin Concent 33.7 g/dl Platelet Count 144 K/uL Mean Platelet Volume 9.3 fL Neutrophils (%) (Auto) 92.7 % Lymphocytes (%) (Auto) 5.6 % Monocytes (%) (Auto) 1.3 % Eosinophils (%) (Auto) 0.0 % Basophils (%) (Auto) 0.0 % Neutrophils # (Auto) 6.68 K/uL Lymphocytes # (Auto) 0.40 K/uL Monocytes # (Auto) 0.09 K/uL Eosinophils # (Auto) 0.00 K/uL Basophils # (Auto) 0.00 K/uL RDW Standard Deviation 43.0 fL RDW Coefficient of Variation 13.6 % Immature Granulocyte % (Auto) 0.4 % Immature Granulocyte # (Auto) 0.03 K/uL Sodium Level 135 mmol/L Potassium Level 4.0 mmol/L Chloride Level 103 mmol/L Carbon Dioxide Level 26 mmol/L Anion Gap 6.0 mmol/L Blood Urea Nitrogen 15 mg/dl Creatinine 1.20 mg/dl Est Creatinine Clear Calc Drug Dose 76.8 ml/min Estimated GFR () 74.7 Estimated GFR (Non- 64.4 BUN/Creatinine Ratio 12.9 Random Glucose 175 mg/dl Estimated Average Glucose 131 mg/dl Hemoglobin A1c 6.2 % Calcium Level 8.6 mg/dl Phosphorus Level 2.5 mg/dl Magnesium Level 2.0 mg/dl Total Bilirubin 0.6 mg/dl Aspartate Amino Transf (AST/SGOT) 16 U/L Alanine Aminotransferase (ALT/SGPT) 27 U/L Alkaline Phosphatase 67 U/L Total Protein 6.8 gm/dl Albumin 2.9 gm/dl Globulin 3.9 gm/dl Albumin/Globulin Ratio 0.7 Lactic Acid Level 2.3 mmol/L (Talisha Arboleda, BRIAN) Assessment and Plan 62 years old man with past medical 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 Patient also has COPD, chronic respiratory failure on 2-3 L oxygen at home, presented to the hospital with right lower lobe pneumonia. Assessment Acute on chronic hypoxic respiratory failure secondary pneumonia and COPD exacerbation, history of Pancoast tumor status post chemotherapy/radiation/ right upper lobe lobectomy Sinus tachycardia secondary to respiratory distress/bronchodilators - Chest CT showed no pe, did show RLL mild opacity - continue mucinex, duonebs, steroids, continue cefepime and azithromycin, will discontinue vancomycin as nasal swab was negative - continue telemetry monitoring - heart rate improving - flu negative - BC, SC, legionella pending - O2 per protocol - trops negative x3 - Lactic acid this morning 2.3 - start IVF at 100 ml/hr Tachycardia - improving, continue metoprolol Oral thrush - continue nystatin Hx of GI Bleed, GI prophylaxis - ranitidine DVT prophylaxis - heparin subq Full code (Talisha Arboleda, BRIAN) Supervising Note Dr. Shelby I performed a history and physical examination on the patient. I reviewed above note and agree with it. I discussed plan with APC and patient. During my face to face encounter with the patient, I answered all of the patient's questions. Will continue current antibiotics except for vanc. Patient appears to be improving as cough has decreased. Will continue to monitor (Chong Shelby M.D.)
[2017-07-01] MEDS: RANITIDINE HCL 150 MG TAB PO SCH (12:42)
--- NOTE | 2017-07-01 14:04 | Cardiology Consultation ---
Cardiology Consultation Date of Consultation: Jul 01, 2017. Requesting Physician: Afsaneh Reason for Consultation: Heart block Pt evaluation today including: conversation w/ patient, physical exam, chart review, lab review, review of studies, review of inpatient medication list, conversation w/ attending History of Present Illness The patient is a 60-year-old gentleman with a history of a sinus tachycardia and mildly reduced LV systolic function was currently admitted to [facility] for symptoms of cough, diaphoresis and breathing difficulty. Patient states that for several weeks now he has had a persistent cough and some mild dyspnea. His symptoms appear to have become acutely worse over the past 24 hours and also involved diffuse diaphoresis. He was admitted [facility] with a presumptive diagnosis of pneumonia. Patient was placed on telemetry and was noted to have episodes of heart block and associated bradycardia. Patient's current complaint includes persistent coughing. He states that he is coughing frequently and quite forcefully. He has had some chest discomfort over the past few days due to coughing. Initially this involved the flanks and lateral portions of the chest. More recently this is involve the precordium. Is not exclusively exertional in tends to occur only with coughing. He does have an element of dyspnea. This is worse with ambulation. He is not appear to have overt orthopnea. He states that in general he is quite dyspneic with activity. He does use supplemental oxygen at all times. He generally does not have symptoms of chest discomfort. He states that he has had some transient dizziness and lightheadedness associated with coughing. He has had symptoms of this nature in the past which are very brief and rare in frequency. He does recall having had a syncopal episode once after his thoracic surgery. He has not had syncope at other times. He is not currently aware of any fluttering or palpitation. Past Medical/Surgical History Sinus tachycardia Possible tachycardia induced cardiomyopathy Pancoast tumor status post right upper lobe resection Severe COPD currently on oxygen Peyronies disease Oral thrush Past surgical history: Right upper lobe resection for Pancoast tumor Cholecystectomy Lumbar laminectomy Family History Gallbladder disease Heart disease Hypertension Lung disease Noncontributory given his current comorbidities Social History Smoking Status: Former Smoker History of Alcohol Use: Yes (SOCIAL) Currently lives independently with his Review of Systems Respiratory: + cough, + dyspnea on exertion Patient does report occasional lower extremity edema. This is not been a problem recently. While he did have notable diaphoresis he does not report documented fevers recently. All Other Systems: Reviewed and Negative Allergies Coded Allergies: BEE STING (Verified Allergy, Unknown, LOCAL SWELLING, 06/30/17) Diltiazem (Verified Allergy, Unknown, REDNESS "MADE ME LOOK LIKE A STRAWBERRY", 06/30/17) Medications Current Inpatient Medications Medications (Trade) Dose Ordered Sig/Camilo Route Start Time Stop Time Status Last Admin Dose Admin Ioversol (Optiray 320) 100 ml UD PRN IV 06/30/17 15:45 07/04/17 15:44 Aspirin (Ecotrin Tab) 81 mg QPM PO 06/30/17 21:00 07/30/17 20:59 06/30/17 21:17 81 MG Albuterol/ Ipratropium (Combivent Respimat Inh) 1 puffs QID PRN INH 06/30/17 18:30 07/30/17 18:29 Metoprolol Succinate (Toprol Xl Tab) 50 mg QAM PO 07/01/17 09:00 07/31/17 08:59 07/01/17 08:11 50 MG Nystatin (Mycostatin Susp) 5 ml TID PO 06/30/17 21:00 07/30/17 20:59 07/01/17 12:42 5 ML Tamsulosin HCl (Flomax Cap) 0.4 mg DAILY PO 07/01/17 09:00 07/31/17 08:59 07/01/17 08:09 0.4 MG Budesonide (Pulmicort Respules 0.5MG/ 2ML Neb Soln) 0.5 mg BIDR INH 06/30/17 20:00 07/30/17 19:59 07/01/17 07:07 0.5 MG Methylprednisolone Sodium Succinate 60 mg/Syringe 0.96 ml @ 1.5 mls/min Q6H IV 06/30/17 22:00 07/30/17 18:29 07/01/17 10:08 1.5 MLS/MIN Azithromycin 500 mg/Dextrose 255 ml @ 125 mls/hr Q24H IV 06/30/17 21:00 07/07/17 18:29 06/30/17 21:14 125 MLS/HR Guaifenesin (Mucinex Contr Rel Tab) 600 mg Q12 PRN PO 06/30/17 18:30 07/30/17 18:29 Lactobacillus Acidophilus (Floranex Tab) 4 tab TIDM PO 07/01/17 08:00 07/31/17 07:59 07/01/17 13:09 4 TAB Guaifenesin (Mucinex Contr Rel Tab) 600 mg Q12 PO 06/30/17 21:00 07/30/17 20:59 07/01/17 08:09 600 MG Heparin Sodium (Porcine) (Heparin Sq 5000 Unit/0.5ml) 5,000 unit Q8 SQ 06/30/17 22:00 07/30/17 21:59 07/01/17 12:43 5,000 UNIT Sodium Chloride 1,000 ml @ 100 mls/hr Q10H IV 06/30/17 18:42 07/30/17 18:41 06/30/17 21:07 35 MLS/HR Acetaminophen (Tylenol Tab) 650 mg Q4H PRN PO 06/30/17 18:45 07/30/17 18:44 Al Hydrox/Mg Hydrox/Simethicone (Maalox Max Susp) 15 ml Q4H PRN PO 06/30/17 18:45 07/30/17 18:44 Magnesium Hydroxide (Milk Of Magnesia Susp) 30 ml Q12H PRN PO 06/30/17 18:45 07/30/17 18:44 Zolpidem Tartrate (Ambien Tab) 5 mg HSZ PRN PO 06/30/17 18:45 07/30/17 18:44 Ondansetron HCl (Zofran Inj) 4 mg Q6H PRN IV 06/30/17 18:45 07/30/17 18:44 Polyethylene (Miralax Powder Packet) 17 gm DAILY PRN PO 06/30/17 18:45 07/30/17 18:44 Ipratropium [place] (Atrovent 0.02% 0.5MG/2.5ML Neb) 0.5 mg Q6R INH 06/30/17 21:00 07/30/17 20:59 07/01/17 07:06 0.5 MG Levalbuterol (Xopenex 0.63 Mg/ 3 Ml Neb) 0.63 mg Q6R INH 06/30/17 21:00 07/30/17 20:59 07/01/17 07:06 0.63 MG Cefepime HCl 2000 mg/Syringe 20 ml @ 5 mls/min Q8 IV 06/30/17 20:30 07/07/17 20:29 07/01/17 12:42 5 MLS/MIN Benzonatate (Tessalon Perles Cap) 100 mg TID PRN PO 06/30/17 23:15 07/30/17 23:14 07/01/17 13:08 100 MG Ranitidine HCl (zANTac TAB) 150 mg QAM PO 07/01/17 11:00 07/31/17 10:59 07/01/17 12:42 150 MG Physical Exam Vital Signs Past 12 Hours Date Time Temp Pulse Resp B/P (MAP) Pulse Ox O2 Delivery O2 Flow Rate FiO2 07/01/17 11:39 36.5 93 18 100/57 (71) 95 2.0 07/01/17 08:00 95 Nasal Cannula 2.5 07/01/17 07:46 36.5 56 18 113/67 (82) 94 2.0 07/01/17 07:07 99 18 96 Nasal Cannula 2.0 07/01/17 04:46 36.5 100 19 98/58 (71) 93 Nasal Cannula 2.0 07/01/17 04:05 Nasal Cannula 2.5 07/01/17 02:03 104 20 97 Nasal Cannula 2.0 The patient is alert and oriented. Mood and affect appeared normal. He answered all questions appropriately. HEENT: Pupils are equal and reactive to light and accommodation. Extraocular movements are intact. The sclerae are anicteric. Neuro: Cranial nerves intact Neck: Patient's neck is supple. He has palpable carotid pulses bilaterally without bruits on auscultation. There is no evidence of jugular venous distention. The thyroid is not enlarged. Lungs: Frequent forceful coughing during the exam. Clear to auscultation bilaterally. He has good air movement without use of accessory muscles. No rales wheezes or rhonchi. Some coarse upper airway sounds Cardiac: Heart demonstrates a regular rate and rhythm. Normal S1 and S2. No murmurs on examination. Back: Well-healed thoracotomy scar in the right upper back Pulses: The patient has palpable radial pulses bilaterally that are equal in intensity Extremities: There was no evidence of hypoperfusion. There is no cyanosis. There is no edema. Skin: I did not appreciate any rashes on examination today. Data Laboratory Results: Last 24 Hours Test 06/30/17 14:13 06/30/17 14:19 06/30/17 20:18 06/30/17 22:23 White Blood Count 6.26 K/uL Red Blood Count 4.46 M/uL Hemoglobin 13.2 g/dL Hematocrit 38.7 % Mean Corpuscular Volume 86.8 fL Mean Corpuscular Hemoglobin 29.6 pg Mean Corpuscular Hemoglobin Concent 34.1 g/dl Platelet Count 153 K/uL Mean Platelet Volume 9.7 fL Neutrophils (%) (Auto) 73.2 % Lymphocytes (%) (Auto) 16.9 % Monocytes (%) (Auto) 7.7 % Eosinophils (%) (Auto) 1.8 % Basophils (%) (Auto) 0.2 % Neutrophils # (Auto) 4.59 K/uL Lymphocytes # (Auto) 1.06 K/uL Monocytes # (Auto) 0.48 K/uL Eosinophils # (Auto) 0.11 K/uL Basophils # (Auto) 0.01 K/uL RDW Standard Deviation 43.0 fL RDW Coefficient of Variation 13.5 % Immature Granulocyte % (Auto) 0.2 % Immature Granulocyte # (Auto) 0.01 K/uL Prothrombin Time 9.5 SECONDS Prothromb Time International Ratio 0.9 Activated Partial Thromboplast Time 28.6 SECONDS Partial Thromboplastin Ratio 1.1 Sodium Level 135 mmol/L Potassium Level 4.0 mmol/L Chloride Level 103 mmol/L Carbon Dioxide Level 28 mmol/L Anion Gap 4.0 mmol/L 15.0 mmol/L Blood Urea Nitrogen 17 mg/dl Creatinine 1.22 mg/dl Est Creatinine Clear Calc Drug Dose 75.0 ml/min Estimated GFR () 73.2 Estimated GFR (Non- 63.1 BUN/Creatinine Ratio 13.9 Random Glucose 118 mg/dl Calcium Level 8.5 mg/dl Troponin I < 0.015 ng/ml Hepatitis C Antibody Screen NEG Bedside Hemoglobin 12.9 g/dl Bedside Hematocrit 38 % Bedside Sodium 139 mEq/L Bedside Potassium 4.0 mEq/L Bedside Chloride 100 mEq/L Bedside Total CO2 29 mEq/l Bedside Blood Urea Nitrogen 18 mg/dl Bedside Creatinine 1.1 mg/dl Bedside Glucose (other) 122 mg/dl Bedside Ionized Calcium (Nicholas) 1.17 mmol/l Bedside Glucose 144 mg/dl Test 07/01/17 00:08 07/01/17 06:43 07/01/17 06:47 07/01/17 12:33 Troponin I < 0.015 ng/ml < 0.015 ng/ml < 0.015 ng/ml White Blood Count 7.20 K/uL Red Blood Count 4.16 M/uL Hemoglobin 12.1 g/dL Hematocrit 35.9 % Mean Corpuscular Volume 86.3 fL Mean Corpuscular Hemoglobin 29.1 pg Mean Corpuscular Hemoglobin Concent 33.7 g/dl Platelet Count 144 K/uL Mean Platelet Volume 9.3 fL Neutrophils (%) (Auto) 92.7 % Lymphocytes (%) (Auto) 5.6 % Monocytes (%) (Auto) 1.3 % Eosinophils (%) (Auto) 0.0 % Basophils (%) (Auto) 0.0 % Neutrophils # (Auto) 6.68 K/uL Lymphocytes # (Auto) 0.40 K/uL Monocytes # (Auto) 0.09 K/uL Eosinophils # (Auto) 0.00 K/uL Basophils # (Auto) 0.00 K/uL RDW Standard Deviation 43.0 fL RDW Coefficient of Variation 13.6 % Immature Granulocyte % (Auto) 0.4 % Immature Granulocyte # (Auto) 0.03 K/uL Sodium Level 135 mmol/L Potassium Level 4.0 mmol/L Chloride Level 103 mmol/L Carbon Dioxide Level 26 mmol/L Anion Gap 6.0 mmol/L Blood Urea Nitrogen 15 mg/dl Creatinine 1.20 mg/dl Est Creatinine Clear Calc Drug Dose 76.8 ml/min Estimated GFR () 74.7 Estimated GFR (Non- 64.4 BUN/Creatinine Ratio 12.9 Random Glucose 175 mg/dl Estimated Average Glucose 131 mg/dl Hemoglobin A1c 6.2 % Calcium Level 8.6 mg/dl Phosphorus Level 2.5 mg/dl Magnesium Level 2.0 mg/dl Total Bilirubin 0.6 mg/dl Aspartate Amino Transf (AST/SGOT) 16 U/L Alanine Aminotransferase (ALT/SGPT) 27 U/L Alkaline Phosphatase 67 U/L Total Protein 6.8 gm/dl Albumin 2.9 gm/dl Globulin 3.9 gm/dl Albumin/Globulin Ratio 0.7 Lactic Acid Level 2.3 mmol/L Imaging: Chest x-ray and CT both demonstrated severe emphysema. Possible right lower lobe pneumonia. No pulmonary embolus EKG: Sinus tachycardia Telemetry reviewed: Sinus tachycardia with periods of heart block and associated bradycardia. The longest episode appears to have lasted almost 4 seconds Assessment & Plan 1. Heart block: I reviewed the patient's outpatient record suggests a history of Mobitz type 1 heart block. This was recorded on multiple occasions with ambulatory monitoring. While the patient does have some symptoms of dizziness lightheadedness here in the hospital, these are most likely associated with coughing spells. There may also be associated bradycardia and heart block associated with these episodes. I think the forceful coughing produces increased vagal tone and this is reflected in his arrhythmia. He has slowing of the sinus rhythm as well as development of heart block. I do not think this represents primary conduction disease. He has a narrow complex rhythm and is known to have high heart rates with intact conduction. In the absence of severe symptoms I would not treat this further. This is likely to improve as his coughing improves. 2. Tachycardia: Patient is known to have an element of sinus tachycardia. His heart rates generally however around 100 beats per minute. Here in the hospital with coughing and ambulation his heart rates have been higher. This is an appropriate response. He should continue on his current dose of metoprolol. As his clinical condition improves, we will likely see improvement in his overall heart rates. 3. Cardiomyopathy: Last echocardiogram in August of 2016 demonstrated an ejection fraction of 45-50%. It is unclear if this represents a tachycardia induced cardiomyopathy. Patient is scheduled for repeat evaluation. This could be accomplished in the hospital if his clinical condition improves. In the absence of worsening symptoms this can also be deferred to the outpatient setting. Patient will be continued on a beta-marco. Consideration has been given in the past to the addition of an AMANDA-inhibitor if the LV systolic function continues to be low. 4. Chest pain: This is not appear to be cardiac in nature. This seems to be associated with coughing. He has had extended episodes over several days without elevation in his biomarkers.
[2017-07-01] MEDS: SODIUM CHLORIDE 0.9% 1000ML 1,000 ML IV SCH (19:52)
[2017-07-01] MEDS: AZITHROMYCIN IV 500 MG in DEXTROSE 5% 250ML 250 ML IV SCH (20:07)
[2017-07-01] MEDS ORDERED: NURSING VERBAL MED ORDER ONE (20:15)
[2017-07-01] MEDS: ASPIRIN 81 MG ECTAB PO SCH (20:52)
[2017-07-02] VITALS (12 sets, daily range): BP systolic 97–130; BP diastolic 57–78; PULSE 73–110; TEMP 36.1–36.8; O2SAT 93–99
[2017-07-02] MEDS: IPRATROPIUM BROMIDE NEB SOLN 0.02% 2.5 ML VIAL INH SCH ×4 (02:00→19:43)
[2017-07-02] MEDS: LEVALBUTEROL 0.63MG/3 ML NEB INH SCH ×4 (02:00→19:43)
[2017-07-02] MEDS: METHYLPREDNISOLONE IV 60 MG in SYRINGE 0 ML IV SCH ×3 (03:01→21:07)
[2017-07-02 03:32] LABS: CREATININE 1.23 mg/dl (0.60-1.40)
[2017-07-02] MEDS: CEFEPIME IV 2,000 MG in SYRINGE 7.5 ML IV SCH ×2 (05:53→14:42)
[2017-07-02] MEDS: HEPARIN SOD 5000 UNIT/0.5 ML CARP SQ SCH ×3 (05:54→22:03)
[2017-07-02] MEDS: BENZONATATE 100MG CAP PO PRN ×3 (06:05→22:02)
[2017-07-02] MEDS: BUDESONIDE 0.5 MG/2 ML VIAL (PULMICORT) INH SCH ×2 (07:00→19:43)
[2017-07-02] MEDS: LACTOBACILLUS ACIDOPHILUS (FLORANEX) TAB PO SCH ×3 (08:03→16:35)
[2017-07-02] MEDS: GUAIFENESIN 600 MG TABCR PO SCH ×2 (08:03→20:24)
[2017-07-02] MEDS: METOPROLOL SUCC 50MG EXT REL TAB PO SCH (08:04)
[2017-07-02] MEDS: NYSTATIN SUSP 500,000 U/5 ML UDC PO SCH ×3 (08:04→20:23)
[2017-07-02] MEDS: TAMSULOSIN HCL 0.4 MG CAP PO SCH (08:05)
[2017-07-02] MEDS: RANITIDINE HCL 150 MG TAB PO SCH (08:05)
[2017-07-02] MEDS ORDERED: VANCOMYCIN TROUGH ONE (08:30)
--- NOTE | 2017-07-02 14:47 | Progress Note ---
Subjective Date of Service: Jul 02, 2017. Subjective From yesterday evening to today. Patient reports feeling about the same. Patient however states he feels significantly better than when he came in however. He also states his cough now is nonproductive and is mildly less frequent. ROS Constitutional: no chills, aches, sweats or fever Respiratory: see HPI Cardiac: no chest pain, palpitations, edema, orthopnea or lightheadedness GI: no abdominal pain, nausea, vomiting, diarrhea or constipation : no dysuria or hesitancy Extremities: no joint pain or weakness Skin: no rash All other systems reviewed and negative Problem List Medical Problems: (1) Hypoxia Status: Acute Objective Vital Signs Date Time Temp Pulse Resp B/P (MAP) Pulse Ox O2 Delivery O2 Flow Rate FiO2 07/02/17 12:00 98 Room Air 3.0 07/02/17 11:16 36.8 100 20 122/71 (88) 98 Nasal Cannula 2.0 07/02/17 08:00 96 Room Air 3.0 07/02/17 07:15 36.1 91 18 108/76 (87) 96 Room Air 07/02/17 07:00 100 16 95 Nasal Cannula 3.0 07/02/17 04:00 Nasal Cannula 3.0 07/02/17 04:00 36.8 73 20 97/63 (74) 97 3.0 07/02/17 02:00 110 16 99 Nasal Cannula 3.0 07/02/17 00:00 Nasal Cannula 3.0 07/01/17 23:01 106/57 (73) 07/01/17 22:59 36.4 102 24 91/46 (61) 96 3.0 07/01/17 20:00 96 Nasal Cannula 3.0 07/01/17 19:39 36.3 106 24 109/66 (80) 93 2.0 07/01/17 19:04 99 18 98 Nasal Cannula 3.0 07/01/17 16:00 96 Nasal Cannula 3.0 07/01/17 14:52 36.5 99 20 132/69 (90) 96 3.0 Physical Exam Comments: General: no distress Eyes: normal inspection, PERLL Respiratory: chest non tender, clear breath sounds except for decreased breath sounds at bases, no respiratory distress, no accessory muscle use Cardiac: regular rate and rhythm, no rub or gallop, no murmur, no edema, no jvd GI/: active bowel sounds, no abd pain or tenderness, soft, non distended Extremities: normal range of motion, normal strength, non tender Neuro/Psych: alert and oriented x 3, normal mood and affect Skin: normal color, dry Laboratory Results Last 24 Hours Test 07/01/17 19:06 07/02/17 02:54 07/02/17 08:30 Troponin I < 0.015 ng/ml < 0.015 ng/ml < 0.015 ng/ml Creatinine 1.23 mg/dl Est Creatinine Clear Calc Drug Dose 74.9 ml/min Estimated GFR () 72.5 Estimated GFR (Non- 62.5 Vancomycin Level Trough 3.6 mcg/ml Assessment and Plan 62 years old man with past medical 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 Patient also has COPD, chronic respiratory failure on 2-3 L oxygen at home, presented to the hospital with right lower lobe pneumonia. Assessment Acute on chronic hypoxic respiratory failure secondary pneumonia and COPD exacerbation, history of Pancoast tumor status post chemotherapy/radiation/ right upper lobe lobectomy Sinus tachycardia secondary to respiratory distress/bronchodilators - Chest CT showed no pe, did show RLL mild opacity - continue mucinex, duonebs, steroids, continue cefepime and azithromycin, will discontinue vancomycin as nasal swab was negative - continue telemetry monitoring - heart rate improving - flu negative - BC, SC, legionella pending - O2 per protocol - trops negative x3 - Lactic acid 2.3 yesterday; will monitor and check in AM -Patient is improving clinically. will continue azithromycin and neelima switch cephalosporin to ceftriaxone as patient does not tanner to be on a 4th gen. Tachycardia - continues to improve continue metoprolol. Oral thrush - continue nystatin -discussed on need of rinsing mouth when he used inhaled steroids. Hx of GI Bleed, GI prophylaxis - ranitidine DVT prophylaxi
[2017-07-02] MEDS ORDERED: CEFTRIAXONE SOD INJ 500 MG in DEXTROSE 5% 50ML 50 ML IV SCH (20:00)
[2017-07-02] MEDS: ASPIRIN 81 MG ECTAB PO SCH (20:23)
[2017-07-02] MEDS ORDERED: CEFTRIAXONE SOD INJ 1000 MG in DEXTROSE 5% 50ML IV SCH (21:00)
[2017-07-02] MEDS: AZITHROMYCIN IV 500 MG in DEXTROSE 5% 250ML 250 ML IV SCH (21:07)
[2017-07-03] MEDS: LEVALBUTEROL 0.63MG/3 ML NEB INH SCH ×2 (02:00→05:04)
[2017-07-03] MEDS: IPRATROPIUM BROMIDE NEB SOLN 0.02% 2.5 ML VIAL INH SCH ×2 (02:00→05:04)
[2017-07-03 04:02] VITALS: BP 102/58; PULSE 92; TEMP 36.5; O2SAT 95
[2017-07-03 05:04] VITALS: PULSE 92; O2SAT 96
[2017-07-03] MEDS: HEPARIN SOD 5000 UNIT/0.5 ML CARP SQ SCH ×2 (06:30→13:05)
[2017-07-03 06:48] LABS: HEMATOCRIT 36.2 % (42-52); HEMOGLOBIN 12.1 g/dL (14.0-18.0); MEAN CELL VOLUME 87.2 fL (80-100); MEAN CORPUSCULAR HEMOGLOBIN 29.2 pg (25-34); MEAN CORPUSCULAR HGB CONC 33.4 g/dl (32-36); MEAN PLATELET VOLUME 9.2 fL (7.4-10.4); PLATELET COUNT 161 K/uL (130-400); RED CELL DISTRIBUTION WIDTH CV 13.5 % (11.5-14.5); RED CELL DISTRIBUTION WIDTH SD 43.4 fL (36.4-46.3); WHITE BLOOD COUNT 7.76 K/uL (4.8-10.8)
[2017-07-03] MEDS: BENZONATATE 100MG CAP PO PRN (07:07)
[2017-07-03] MEDS: LACTOBACILLUS ACIDOPHILUS (FLORANEX) TAB PO SCH ×2 (07:10→11:23)
[2017-07-03] MEDS: RANITIDINE HCL 150 MG TAB PO SCH (07:10)
[2017-07-03] MEDS: METOPROLOL SUCC 50MG EXT REL TAB PO SCH (07:10)
[2017-07-03] MEDS: TAMSULOSIN HCL 0.4 MG CAP PO SCH (07:11)
[2017-07-03] MEDS: NYSTATIN SUSP 500,000 U/5 ML UDC PO SCH ×2 (07:11→13:06)
[2017-07-03] MEDS: GUAIFENESIN 600 MG TABCR PO SCH (07:12)
[2017-07-03 07:13] VITALS: BP_SYST 112; BP_SYST 122; BP_DIAS 54; BP_DIAS 80; PULSE 62; PULSE 90; TEMP 36.4; TEMP 36.6; O2SAT 94; O2SAT 96
[2017-07-03] MEDS: BUDESONIDE 0.5 MG/2 ML VIAL (PULMICORT) INH SCH (07:20)
[2017-07-03 07:21] VITALS: PULSE 98; O2SAT 96
[2017-07-03 07:24] LABS: CALCIUM 8.8 mg/dl (8.5-10.1); CREATININE 0.99 mg/dl (0.60-1.40); POTASSIUM 4.3 mmol/L (3.5-5.1)
[2017-07-03] MEDS: METHYLPREDNISOLONE IV 60 MG in SYRINGE 0 ML IV SCH (09:35)
[2017-07-03 12:04] VITALS: BP 112/73; PULSE 99; TEMP 36.3; O2SAT 96
[2017-07-03] MEDS ORDERED: AZIT-57 PO (12:57)
[2017-07-03] MEDS ORDERED: GFNSR600 PO (12:57)
[2017-07-03] MEDS ORDERED: BENZ100C7 PO (12:57)
[2017-07-03] MEDS ORDERED: PRD20 PO (12:57)
[2017-07-03] MEDS ORDERED: CEFU1TAB36 PO (12:57)
--- NOTE | 2017-07-03 13:02 | Discharge Instructions ---
Discharge Instructions Date of Service Jul 03, 2017. Admission Reason for Admission: Pneumonia Discharge Discharge Diagnosis / Problem: COugh; possible pnuemonia Discharge Goals Goal(s): Decrease discomfort, Improve function Activity Recommendations Activity Limitations: resume your previous activity . Instructions / Follow-Up Instructions / Follow-Up Follow up with PCP in 1-2 weeks Follow up with Dr. Segura in 1-2 weeks Follow Cardiology in 2-4 weeks Current Hospital Diet Patient's current hospital diet: Regular Diet Discharge Diet Recommended Diet: Regular Diet Pending Studies Studies pending at discharge: no Laboratory Results Hemoglobin A1c Test 07/01/17 06:43 Range/Units Estimated Average Glucose 131 mg/dl Hemoglobin A1c 6.2 H 4.5-5.6 % Medical Emergencies . Who to Call and When: Medical Emergencies: If at any time you feel your situation is an emergency, please call 911 immediately. . Non-Emergent Contact Non-Emergency issues call your: Primary Care Provider Call Non-Emergent contact if: you have any medication questions . . "Provider Documentation" section prepared by Chong Shelby. .
[2017-07-03 13:10] VITALS: BP 112/73; PULSE 99; TEMP 36.3; O2SAT 96
--- NOTE | 2017-07-05 12:19 | Discharge Summary ---
Discharge Summary Date of Service July 05, 2017. Discharge Summary Admission Date: Jun 30, 2017 at 18:49 Discharge Date: Jul 03, 2017 Discharge Disposition: Home Principal Diagnosis: COPD exacerbation with RLL pneumonia Immunizations: History of Tetanus Vaccine?: UNKNOWN History of Hepatitis B Vaccine: No Medication Reconciliation New Medications: Azithromycin (Azithromycin) 250 Mg Tab 1 TAB PO MWF for 30 Days, #30 TAB Take for for 3 more days, then Tuesday, Tuesday Cefuroxime Axetil (Cefuroxime Axetil) 500 Mg Tab 1 TAB PO BID for 5 Days, #10 TAB Prednisone (Prednisone) 20 Mg Tab 1 TAB PO DAILY for 30 Days, #30 TAB 3 tablets PO daily for 5 days 2 tabs for 5 days 1 tab for 5 days Benzonatate (Benzonatate) 100 Mg Cap 100 MG PO TID PRN for Cough for 15 Days, #45 CAP Guaifenesin Ext Rel (Mucinex Ext Rel) 600 Mg Tabcr 600 MG PO Q12 PRN for Cough for 15 Days, #30 TAB Continued Medications: Albuterol Sulf (Albuterol Sulfate) 2.5 Mg/3 Ml Nebu 1 DOSE INH Q4H PRN for Shortness of Breath Aspirin (Aspir-Low) 81 Mg Tab 81 MG PO QPM Fluticasone Prop/Salmeterol (Advair Diskus 500-50 Mcg/Dose) 14 Puff/1 Inhaler Aerp 1 PUFF INH BID Home O2 Therapy (Oxygen) Gas 2 LITERS NA HS 3L NC O2 DURING DAY WITH STRENUOUS EXERCISE Ipratropium-Albuterol (Combivent Respimat) 1 Aer Aer 1 PUFFS INH QID PRN for SOB/Wheezing Metoprolol Succ (Toprol Xl) (Toprol-Xl) 50 Mg Tabcr 50 MG PO QAM Multivitamin (Multivitamin) Tab 1 TAB PO QAM Nystatin (Nystatin Suspension) 1 Ml Susp 5 ML PO TID Tamsulosin Hcl (Flomax) 0.4 Mg Cap 0.4 MG PO DAILY, CAP Discharge Exam Physical Exam Comments: General: no distress Eyes: normal inspection, PERLL Respiratory: chest non tender, clear breath sounds , no respiratory distress, no accessory muscle use Cardiac: regular rate and rhythm, no rub or gallop, no murmur, no edema, no jvd GI/: active bowel sounds, no abd pain or tenderness, soft, non distended Extremities: normal range of motion, normal strength, non tender Neuro/Psych: alert and oriented x 3, normal mood and affect Skin: normal color, dry Review of Systems: Constitutional: No fever Eyes: No worsening of vision ENT: No hearing loss Respiratory: + cough Cardiovascular: No chest pain Abdomen: No pain Musculoskeletal: No joint pain Neurologic: No memory loss Psychiatric: No depression symptoms Endocrine: No excessive thirst Hematologic / Lymphatic: No clotting problems Integumentary: No rash Hospital Course 62 years old man with past medical 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 Patient also has COPD, chronic respiratory failure on 2-3 L oxygen at home, presented to the hospital with right lower lobe pneumonia. Assessment Acute on chronic hypoxic respiratory failure secondary pneumonia and COPD exacerbation, history of Pancoast tumor status post chemotherapy/radiation/ right upper lobe lobectomy Sinus tachycardia secondary to respiratory distress/bronchodilators - Chest CT showed no pe, did show RLL mild opacity - continue mucinex, duonebs, steroids, continue cefepime and azithromycin, will discontinue vancomycin as nasal swab was negative - continue telemetry monitoring - heart rate improving - flu negative - BC, SC, legionella pending - O2 per protocol - trops negative x3 - Lactic acid 2.3 yesterday; will monitor and check in AM -Patient is improving clinically. will continue azithromycin and will switch cephalosporin to ceftriaxone as patient does not tanner to be on a 4th gen. -On day of discharge, patient reports feeling close to his baseline. -Cough and SOB has diminished will discharge patient on antibiotics and will have patient continue on azithromycin for COPD exacerbation prophylaxis. Tachycardia - continues to improve continue metoprolol. Below 100 on day of discharge Oral thrush - continue nystatin -discussed on need of rinsing mouth when he used inhaled steroids. Hx of GI Bleed, GI prophylaxis - ranitidine DVT prophylaxi Total Time Spent: Greater than 30 minutes This includes examination of the patient, discharge planning, medication reconciliation, and communication with other providers. Discharge Instructions Please refer to the electronic Patient Visit Report (Discharge Instructions) for additional information. Follow-Up as noted on discharge. Additional Copies To Aggie Mccollum M.D.
== END 2017-07-03 13:53 | disposition home or self-care (01) | DRG 193 ==
LOC: C.EDB 13:30 → C.MED 18:49 → ENRESERV 18:57
PROVIDERS: ADMIT Internal Medicine; ATTEND Internal Medicine Sports Medicine
DX: J18.9 Pneumonia, unspecified organism (principal); J96.21 Acute and chronic respiratory failure with hypoxia; J44.0 Chronic obstructive pulmonary disease with (acute) lower respiratory infection; J44.1 Chronic obstructive pulmonary disease with (acute) exacerbation; B37.0 Candidal stomatitis; R00.0 Tachycardia, unspecified; Z51.81 Encounter for therapeutic drug level monitoring; Z79.899 Other long term (current) drug therapy; Z79.82 Long term (current) use of aspirin; Z99.81 Dependence on supplemental oxygen; Z85.118 Personal history of other malignant neoplasm of bronchus and lung; Z92.21 Personal history of antineoplastic chemotherapy; Z92.3 Personal history of irradiation; Z98.1 Arthrodesis status; Z87.891 Personal history of nicotine dependence; Z88.8 Allergy status to other drugs, medicaments and biological substances; Z91.030 Bee allergy status; Z82.49 Family history of ischemic heart disease and other diseases of the circulatory system

== ENCOUNTER → 2017-07-25 | Outpatient (CLI) | payer OTHER ==
[~2017-07-25] MED LIST changes: +ALBINSX INH; +AZIT-57 PO; +BENZ100C7 PO; +GFNSR600 PO; +NYSS/ PO; +PRD20 PO; +TAMS0.4C38 PO; -TAMS0.4C59 PO
--- NOTE | 2017-07-25 18:52 | DIAGNOSTIC IMAGING REPORT ---
CHEST 2 VIEWS ROUTINE HISTORY: 62 years-old Male J44.1 COPD [id number] acute shortness of breath with COPD. History of prior right upper lobectomy. COMPARISON: Chest radiograph 06/30/2017, chest CT 06/30/2017 TECHNIQUE: PA and lateral views of the chest FINDINGS: Cardiac silhouette is mildly enlarged, unchanged. Atherosclerosis of the aorta. Postoperative changes about the right lung redemonstrated compatible with prior right upper lobectomy. No pneumothorax, pleural effusion, overt pulmonary edema or new lobar airspace consolidation. Chronic interstitial coarsening with advanced emphysema. Bones of the chest appear grossly intact. IMPRESSION: 1. Advanced emphysema without acute process identified. 2. Prior right upper lobectomy. The above report was generated using voice recognition software. It may contain grammatical, syntax or spelling errors. Electronically signed by: Rob Mendoza M.D. 07/25/2017 6:51 PM Dictated Date/Time: 07/25/2017 6:49 PM
== END | disposition home or self-care (01) ==
LOC: C.RAD1850 16:07
PROVIDERS: ATTEND Internal Medicine Pulmonary Disease
DX: J44.1 Chronic obstructive pulmonary disease with (acute) exacerbation (principal)

== ENCOUNTER 2021-04-13 11:33 | Inpatient (IN) ==
[2021-04-13] MEDS ORDERED: SODIUM CHLORIDE 0.9% 500 ML IV STA (11:59)
[2021-04-13] MEDS ORDERED: MoRPHine SULFATE 4 MG/ML 1 ML CARP\\VIAL IV STA (11:59)
[2021-04-13] MEDS ORDERED: ONDANSETRON INJ 2 MG/ML 2 ML VIAL IV STA (11:59)
--- NOTE | 2021-04-13 12:23 | Emergency Department Note ---
Impression & Plan Closed fracture of left fibula and tibia ED Provider Note NAME: FIGUEROA ESPINOSA Jr AGE: 65 SEX: M : 1955 ARRIVES VIA: Ambulance INFORMANT: Patient, ED PROVIDER(S): Dima Muro DO CHIEF COMPLAINT: Leg pain HPI: The patient is a 65-year-old male who has a history of lower extremity peripheral neuropathy who presented to emergency department after a fall. The patient slipped on the ice and fell landing on his left leg. He also injured his right shoulder. He did not strike his head. He denies having any neck pain or loss of consciousness. He denies having any chest or back pain. The patient arrived via ambulance as he could not put any weight on his left leg. He states the pain is moderate to severe especially with any movement of his left leg. He denies having any numbness greater than usual in the leg. The patient was splinted prior to arrival. They were unable to obtain IV access. ROS: See above HPI for pertinent positives & negatives. A total of 10 systems reviewed and were otherwise negative. PAST MEDICAL HISTORY: See Below PAST SURGICAL HISTORY: See Below FAMILY HISTORY: See Below SOCIAL HISTORY: See Below HOME MEDICATIONS: See Below ALLERGIES: See Below VITALS: See Below PHYSICAL EXAMINATION: GENERAL: The patient is awake and alert. He is very anxious and uncomfortable. EYES: The conjunctivae are clear. The pupils are round and reactive. EARS, NOSE, MOUTH AND THROAT: The nose is without any evidence of any deformity. NECK: The neck is nontender and supple. RESPIRATORY: Normal respiratory effort is noted there is no evidence of wheezing rhonchi or rales CARDIOVASCULAR: Regular rate and rhythm noted there no murmurs rubs or gallops normal S1 normal S2. GASTROINTESTINAL: The abdomen is soft. Abdomen is nontender. BACK: No midline tenderness or or step-off noted range of motion in flexion extension as well as rotation no signs of muscle spasm noted MUSCULOSKELETAL/EXTREMITIES: There is no evidence of gross deformity full range of motion is noted in the hips and shoulders. There was deformity noted of the mid left leg. There was no significant swelling but there was deformity and tenderness noted. There is no tenderness over the left foot or left knee. SKIN: There is no obvious evidence of any rash. There is no significant pedal edema. Pulses are symmetric in both feet. NEUROLOGIC: Patient is awake alert and oriented x3. MEDICAL DECISION MAKING: The patient is a 65-year-old male who presented to the emergency department for an evaluation after a fall. The patient fell on his left leg. The patient presented to the emergency department via ambulance. The patient was treated pain medication in the emergency department. He was also placed into a splint. I discussed his condition with the orthopedic group of his choice. Given the patient's previous medical history comorbidities and the morphology of this fracture the patient was felt to be a candidate for surgical intervention. He may require further medical clearance. For this reason I discussed his case with the on-call [facility] hospitalist. They have agreed to evaluate the patient in the emergency department for further management and disposition. The patient was reevaluated multiple times. Triage Nursing notes reviewed. Prior medical records reviewed Vital Signs: reviewed and remarkable for no significant abnormalities Differential diagnosis: Fracture, subluxation, dislocation, contusion, ligamentous injury, neurovascular, compartment syndrome, rhabdomyolysis, as well as other pathologies. ER treatment provided: See below Diagnostics interpreted by me: ECG: none Cardiac Monitoring: An order was placed for continuous cardiac monitoring. The monitor shows a rate of 88 bpm with sinus rhythm. Laboratory studies: As stated above and show below. Imaging studies: See below Consultation(s): I discussed this case with Peewee Tristan who is covering for the orthopedic group that the patient has requested. They will evaluate the patient's x-rays coming back I discussed this case with Dr. [facility] will [facility] the patient in the emergency department. Past Med/Surg History Medical History (Updated 04/13/21 @ 14:07 by Dima Muro DO) Abdominal pain COPD (chronic obstructive pulmonary disease) COPD exacerbation H/O testicular mass Lung cancer Pancreatitis Pneumonia Rectus sheath hematoma Tachycardia Surgical History History of lumbar laminectomy History of lung surgery Hx of cholecystectomy (1990) Hx of fusion of cervical spine Family History Father Stroke syndrome Gallbladder disease Mother Gallbladder disease Lung disease Hypertension Cardiac disorder Congestive heart failure Other Family history non-contributory Denies family history of Ovarian cancer Prostate cancer Myocardial infarction Breast cancer Colorectal cancer Social History (Reviewed 04/13/21 @ 12:21 by SANTOS Solis Smoking Status: Former smoker Tobacco Type: Cigarettes Cigarettes Per Day: 20-30; Second Hand Exposure: No; Hx Alcohol Use: Yes Hx Substance Use: No Preferred Language: Tristanian Visual Impairment: No Limitations Hearing Ability: Use of Hearing Aid marital status: Current Living Situation: Spouse current occupational status: employed current occupation: [employer] Feels Safe at Home: Yes Childhood Exposure to Second-Hand Smoke: Yes Dental Care, Regularly: No Physical Activity Frequency: 3-4 Times per Week Seatbelt Use: sometimes Sunscreen Use: No Allergies Allergies Allergy/AdvReac Type Severity Reaction Status Date / Time bee venom protein (honey bee) Allergy Unknown LOCAL Verified 04/01/21 08:48 SWELLING diltiazem Allergy Unknown REDNESS Verified 04/01/21 08:48 "MADE ME LOOK LIKE A STRAWBERRY" Home Meds Home Medications Medication Instructions Recorded Confirmed aspirin 81 mg tablet,delayed 81 mg PO HS 02/11/18 04/01/21 release (Aspir-Low) multivitamin 1 tab PO QAM 02/11/18 04/01/21 hydrocortisone 1 % topical cream 1 applic TOPICAL BID PRN 04/01/21 04/01/21 (Anti-Itch (hydrocortisone)) triamcinolone acetonide 0.025 % 1 applic TOPICAL DAILY 04/01/21 04/01/21 topical ointment Previous Rx's Medication Instructions Recorded nebulizers #1 ea 04/10/20 Oxygen Home #1 ea 05/15/20 tamsulosin 0.4 mg capsule 0.4 mg PO DAILY #90 cap 10/01/20 ketoconazole 2 % topical cream 1 applic TOPICAL DAILY #15 g 10/08/20 pramipexole 1 mg tablet 3 mg PO .nightly #270 tab 12/04/20 naproxen 500 mg tablet 500 mg PO BID PRN #30 tab 12/31/20 albuterol sulfate 90 mcg/actuation 2 puff INH Q4H PRN #3 inhaler 01/05/21 aerosol inhaler metoprolol succinate 50 mg 50 mg PO QAM #90 tab 02/05/21 tablet,extended release 24 hr (Toprol XL) fluticasone fur. 100 mcg-umeclid 1 inh INH Q24H #180 ea 03/09/21 62.5 mcg-vilant 25 mcg inhalat.powder (Trelegy Ellipta) ipratropium 0.5 mg-albuterol 3 mg 3 ml INH Q4H PRN #90 ml 03/09/21 (2.5 mg base)/3 mL nebulization soln azithromycin 250 mg tablet 250 mg PO .q M,W, and F #12 tab 04/01/21 prednisone 20 mg tablet 20 mg PO .COMPLEX #11 tab 04/01/21 Results & Data (ED) Vital Signs Vital Signs - 24 hr 04/13/21 11:46 Temperature 37.5 C Temperature Source Oral Pulse Rate 88 Pulse Rhythm Regular Pulse Strength Normal Respiratory Rate 18 Respiratory Effort / Characteristics Non-Labored Spontaneous Respiratory Depth Normal Respiratory Pattern Regular Blood Pressure 117/73 Blood Pressure Mean 87 Blood Pressure Position Lying Pulse Oximetry 98 Oxygen Delivery Method Nasal Cannula Oxygen Flow Rate 3 Sepsis Recent Fever Within 48 Hours No Sepsis New/Unexplained Change in Mental Status N/A Sepsis Action Taken by Nursing No Action Required Home Medications Current Medication List: was personally reviewed by me Laboratory Data Attestation: I reviewed the patient's lab results. Result diagrams: 04/13/21 12:10 04/13/21 12:10 Lab Results 04/13/21 04/13/21 04/13/21 Range/Units 12:10 12:10 12:10 WBC 8.19 (4.8-10.8) K/uL RBC 4.48 L (4.7-6.1) M/uL Hgb 13.1 L (14.0-18.0) g/dL Hct 40.9 L (42-52) % MCV 91.3 (80-100) fL MCH 29.2 (25-34) pg MCHC 32.0 (32-36) g/dL RDW Std Deviation 44.8 (36.4-46.3) fL RDW Coeff of Dinesh 13.5 (11.5-14.5) % Plt Count 195 (130-400) K/uL MPV 10.1 (7.4-10.4) fL Immature Gran % (Auto) 0.4 % Neut % (Auto) 74.7 % Lymph % (Auto) 14.0 % [place] % (Auto) 8.3 % Eos % (Auto) 2.2 % Baso % (Auto) 0.4 % Neut # (Auto) 6.12 (1.4-6.5) K/uL Lymph # (Auto) 1.15 L (1.2-3.4) K/uL [place] # (Auto) 0.68 H (0.11-0.59) K/uL Eos # (Auto) 0.18 (0-0.5) K/uL Baso # (Auto) 0.03 (0-0.2) K/uL Immature Gran # (Auto) 0.03 H (0.00-0.02) K/uL PT 9.8 (9.0-12.0) Seconds INR 1.0 (0.9-1.1) APTT 28.2 (21.0-31.0) Seconds PTT Ratio 1.1 Sodium 138 (136-145) mmol/L Potassium 4.2 (3.5-5.1) mmol/L Chloride 101 (98-107) mmol/L Carbon Dioxide 33 H (21-32) mmol/L Anion Gap 4 (3-11) BUN 16 (6-23) mg/dl Creatinine 1.01 (0.6-1.4) mg/dl Est Cr Clr Drug Dosing 94.0 ml/min Est GFR ( Amer) 90.0 ml/min Est GFR (Non-Af Amer) 77.7 ml/min BUN/Creatinine Ratio 15.8 (10-20) Glucose 122 H (70-99(Fasting)) mg/dl Calcium 8.8 (8.5-10.1) mg/dl Total Bilirubin 0.4 (0.2-1.0) mg/dl AST 18 (13-39) U/L ALT 16 (7-52) U/L Alkaline Phosphatase 65 (34-104) U/L Total Protein 6.5 (6.0-8.3) gm/dl Albumin 3.6 (3.4-5.0) gm/dl Globulin 2.9 (2.5-4.0) gm/dl Albumin/Globulin Ratio 1.2 (0.9-2) Lipase 17 (11-82) U/L SARS-CoV-2, RNA, NAAT (NEGATIVE) 04/13/21 Range/Units 12:10 WBC (4.8-10.8) K/uL RBC (4.7-6.1) M/uL Hgb (14.0-18.0) g/dL Hct (42-52) % MCV (80-100) fL MCH (25-34) pg MCHC (32-36) g/dL RDW Std Deviation (36.4-46.3) fL RDW Coeff of Dinesh (11.5-14.5) % Plt Count (130-400) K/uL MPV (7.4-10.4) fL Immature Gran % (Auto) % Neut % (Auto) % Lymph % (Auto) % [place] % (Auto) % Eos % (Auto) % Baso % (Auto) % Neut # (Auto) (1.4-6.5) K/uL Lymph # (Auto) (1.2-3.4) K/uL [place] # (Auto) (0.11-0.59) K/uL Eos # (Auto) (0-0.5) K/uL Baso # (Auto) (0-0.2) K/uL Immature Gran # (Auto) (0.00-0.02) K/uL PT (9.0-12.0) Seconds INR (0.9-1.1) APTT (21.0-31.0) Seconds PTT Ratio Sodium (136-145) mmol/L Potassium (3.5-5.1) mmol/L Chloride (98-107) mmol/L Carbon Dioxide (21-32) mmol/L Anion Gap (3-11) BUN (6-23) mg/dl Creatinine (0.6-1.4) mg/dl Est Cr Clr Drug Dosing ml/min Est GFR ( Amer) ml/min Est GFR (Non-Af Amer) ml/min BUN/Creatinine Ratio (10-20) Glucose (70-99(Fasting)) mg/dl Calcium (8.5-10.1) mg/dl Total Bilirubin (0.2-1.0) mg/dl AST (13-39) U/L ALT (7-52) U/L Alkaline Phosphatase (34-104) U/L Total Protein (6.0-8.3) gm/dl Albumin (3.4-5.0) gm/dl Globulin (2.5-4.0) gm/dl Albumin/Globulin Ratio (0.9-2) Lipase (11-82) U/L SARS-CoV-2, RNA, NAAT NEGATIVE (NEGATIVE) Administered Medications Morphine Sulfate (Morphine Sulfate 4 Mg/Ml 1 Ml Carp\\Vial) 4 mg IV Q30M PRN PRN Reason: Pain Stop: 04/27/21 11:58 Last Admin: 04/13/21 13:20 Dose: 4 mg Documented by: [id number] Discontinued Medications Sodium Chloride (Nss) 500 mls @ 999 mls/hr IV .Q31M STA Stop: 04/13/21 12:29 Last Infusion: 04/13/21 13:36 Dose: 0 mls/hr Documented by: [id number] Admin: 04/13/21 12:09 Dose: 999 mls/hr Documented by: [id number] Morphine Sulfate (Morphine Sulfate 4 Mg/Ml 1 Ml Carp\\Vial) 4 mg IV NOW STA Stop: 04/13/21 12:00 Last Admin: 04/13/21 12:11 Dose: 4 mg Documented by: [id number] Ondansetron HCl (Ondansetron Inj 2 Mg/Ml 2 Ml Vial) 4 mg IV NOW STA Stop: 04/13/21 12:00 Last Admin: 04/13/21 12:10 Dose: 4 mg Documented by: [id number] Imaging Data Radiologist's Impression: Chest X-Ray 04/13/21 11:59 XR chest 1V portable HISTORY: Atypical Chest Pain COMPARISON: Chest 07/01/2020. FINDINGS: Emphysema is again noted. The heart remains mildly enlarged. There is chronic interstitial thickening at the lung bases. Scarlike densities again noted within the right hemithorax. There is suture material within the right hilum with associated volume loss of the right hemithorax consistent with postoperative change. This is similar to the prior study. No pneumothorax. No pleural effusion. IMPRESSION: 1. No significant change compared to the prior study. No acute process. 2. Emphysema and postoperative changes again noted. ACT 112: Negative or not required by law. Electronically signed by: Terrance Chen M.D. 04/13/2021 12:36 PM Tibia/Fibula X-Ray 04/13/21 11:59 XR tibia fibula LT 2V CLINICAL HISTORY: fall. Left lower leg pain. COMPARISON STUDY: None. FINDINGS: Displaced spiral fractures within the proximal shaft of the left fibula and mid to distal shaft of the left tibia. The tibial fracture demonstrates up to 1.8 cm of lateral displacement. The fibular fracture demonstrates up to 12 mm of posterior and lateral displacement. Soft tissue swelling within the left lower leg. No radiopaque foreign bodies. IMPRESSION: Displaced left tibial and fibular fractures as described above. ACT 112: Negative or not required by law. Electronically signed by: Terrance Chen M.D. 04/13/2021 12:38 PM Discharge Plan Visit Data Chief Complaint: Leg Injury/Pain ED Provider: Dima Muro Discharge Problem: Closed fracture of left fibula and tibia Patient Disposition: Being Evaluated by Hospitalist Forms Stand Alone Forms: [facility] ScoreStreak Prescriptions Prescriptions: No Action tamsulosin 0.4 mg capsule 0.4 mg PO DAILY Qty: 90 RF: 1 pramipexole 1 mg tablet 3 mg PO .nightly Qty: 270 RF: 1 naproxen 500 mg tablet 500 mg PO BID PRN (Reason: pain) Qty: 30 RF: 1 albuterol sulfate 90 mcg/actuation HFA aerosol inhaler 2 puff INH Q4H PRN (Reason: shortness of breath or wheezing) Qty: 3 RF: 1 metoprolol succinate [Toprol XL] 50 mg tablet extended release 24 hr 50 mg PO QAM Qty: 90 RF: 1 ipratropium-albuterol 0.5 mg-3 mg(2.5 mg base)/3 mL solution for nebulization 3 ml INH Q4H PRN (Reason: shortness of breath or wheezing) Qty: 90 RF: 1 Trelegy Ellipta 100-62.5-25 mcg blister with device 1 inh INH Q24H Qty: 180 RF: 1 ciclesonide [Alvesco] 160 mcg/actuation HFA aerosol inhaler RF: 0 (DME) Oxygen Home Liters Per Minute See Rx Instructions .MEDSUPPLY Qty: 1 RF: 0 ketoconazole 2 % cream 1 applic topical DAILY Qty: 15 RF: 0 triamcinolone acetonide 0.025 % ointment 1 applic topical DAILY RF: 0 hydrocortisone [Anti-Itch (HC)] 1 % cream 1 applic topical BID PRNRF: 0 prednisone 20 mg tablet 20 mg PO .COMPLEX Qty: 11 RF: 0 azithromycin 250 mg tablet 250 mg PO .q M,W, and F Qty: 12 RF: 3 (DME) nebulizers Misc See Rx Instructions .ROUTE .MEDSUPPLY Qty: 1 RF: 0 multivitamin Tablet 1 tab PO QAM RF: 0 aspirin [Aspir-Low] 81 mg Tablet,Delayed Release (Dr/Ec) 81 mg PO HS RF: 0 Referrals Referrals: Aggie Mccollum MD [Primary Care Provider] -
[2021-04-13 12:32] LABS: Basophils # (auto) 0.03 K/uL (0-0.2); Basophils % (auto) 0.4 %; Eosinophils # (auto) 0.18 K/uL (0-0.5); Eosinophils % (auto) 2.2 %; Hematocrit (blood only) 40.9 % (42-52); Hemoglobin 13.1 g/dL (14.0-18.0); Immature Granulocytes # (auto) 0.03 K/uL (0.00-0.02); Immature Granulocytes % (auto) 0.4 %; Lymphocytes # (auto) 1.15 K/uL (1.2-3.4); Mean Corpuscular Hemoglobin 29.2 pg (25-34); Mean Corpuscular Volume 91.3 fL (80-100); Mean Platelet Volume 10.1 fL (7.4-10.4); Monocytes # (auto) 0.68 K/uL (0.11-0.59); Monocytes % (auto) 8.3 %; Neutrophils # (auto) 6.12 K/uL (1.4-6.5); Neutrophils % (auto) 74.7 %; Platelet Count 195 K/uL (130-400); RDW Coefficient of Variation 13.5 % (11.5-14.5); RDW Standard Deviation 44.8 fL (36.4-46.3); Red Blood Count 4.48 M/uL (4.7-6.1); White Blood Count 8.19 K/uL (4.8-10.8)
--- NOTE | 2021-04-13 12:37 | XRay Report ---
XR chest 1V portable HISTORY: Atypical Chest Pain COMPARISON: Chest 07/01/2020. FINDINGS: Emphysema is again noted. The heart remains mildly enlarged. There is chronic interstitial thickening at the lung bases. Scarlike densities again noted within the right hemithorax. There is otero ture material within the right hilum with associated volume loss of the right hemithorax consistent w ith postoperative change. This is similar to the prior study. No pneumothorax. No pleural effusion. IMPRESSION: 1. No significant change compared to the prior study. No acute process. 2. Emphysema and postoperative changes again noted. ACT 112: Negative or not required by law. Electronically signed by: Terrance Chen M.D. 04/13/2021 12:36 PM
--- NOTE | 2021-04-13 12:40 | XRay Report ---
XR tibia fibula LT 2V CLINICAL HISTORY: fall. Left lower leg pain. COMPARISON STUDY: None. FINDINGS: Displaced spiral fractures within the proximal shaft of the left fibula and mid to distal s haft of the left tibia. The tibial fracture demonstrates up to 1.8 cm of lateral displacement. The fi bular fracture demonstrates up to 12 mm of posterior and lateral displacement. Soft tissue swelling w ithin the left lower leg. No radiopaque foreign bodies. IMPRESSION: Displaced left tibial and fibular fractures as described above. ACT 112: Negative or not required by law. Electronically signed by: Terrance Chen M.D. 04/13/2021 12:38 PM
[2021-04-13 12:51] LABS: Partial Thromboplastin Ratio 1.1; Partial Thromboplastin Time 28.2 Seconds (21.0-31.0); Prothrombin Time 9.8 Seconds (9.0-12.0)
[2021-04-13 12:52] LABS: Albumin Globulin Ratio 1.2 (0.9-2); Albumin Level 3.6 gm/dl (3.4-5.0); BUN Creatinine Ratio 15.8 (10-20); Bilirubin,Total 0.4 mg/dl (0.2-1.0); Calcium 8.8 mg/dl (8.5-10.1); Est GFR (Non-African American) 77.7 ml/min; Globulin 2.9 gm/dl (2.5-4.0); Potassium 4.2 mmol/L (3.5-5.1); Total Protein 6.5 gm/dl (6.0-8.3)
[2021-04-13] MEDS: MoRPHine SULFATE 4 MG/ML 1 ML CARP\\VIAL IV PRN ×2 (13:20→18:27)
--- NOTE | 2021-04-13 14:26 | History & Physical Report ---
Date of Service April 13, 2021 Assessment & Plan (1) Closed fracture of left fibula and tibia: Plan: Due to accidental fall at his home. He has been evaluated by orthopedics - [facility] - who recommend operative repair in the next 1-[address] Hester from cardiology to ensure he is optimized from a cardiac standpoint. Specifically, patient c/o frequent episodes of chest pain/tightness that have been occurring for a lengthy period of time (months-years). From a pulmonary standpoint will schedule albuterol 2 puffs QID, continue his fluticasone/vilanterol, and continue his Trelegy. Check 25-OH vit D level in am. NPO after MN. Cardiopulmonary risk for this surgery - moderate at minimum, likely more moderate-significant risk. Recommend pre and post-op telemetry monitoring. Respiratory status will need to be watched carefully. Post-op DVT prophylaxis will be essential given his prior h/o DVT. Pain control - tylenol prn, dilaudid prn. (2) COPD, severe: Plan: O2-dependent, 3 L NC. Cont all home inhalers. No evidence of current exacerbation. He is NOT on chronic prednisone therapy at home. Cont 3 times/week zithromax as previous. (3) Chronic respiratory failure with hypoxia: Plan: 2nd to severe, end-stage, O2 dependent COPD. no evidence of CHF or current pulmonary infection. (4) Chest pain: Plan: off/on for months and/or years. cardiology consult appreciated. chest pain felt to be noncardiac in nature - perhaps due to his COPD itself (bronchoconstriction, etc). appreciate cardiology evaluation. echo pending. EKG without ischemic changes. could consider VTE work-up given his prior h/o DVT. (5) H/O deep venous thrombosis: Plan: provoked, in the setting of his lung cancer and surgery for such (~2011). will be at higher risk of post-op VTE given his history. consider lovenox injections daily or once daily xarelto post-op. (6) Restless leg syndrome: Plan: check ferritin level am. cont pramipexole. (7) Anemia: Plan: check b12, folate, ferritin along with cbc in am (8) Obesity: Plan: BMI 35 (9) Lung cancer: Plan: h/o - RUL - 2012, s/p RUL lobectomy (10) Idiopathic progressive polyneuropathy: (11) Cardiomyopathy, nonischemic: Plan: several years ago his EF was 45-50%. this was thought perhaps 2nd to tachycardia on chronic basis. repeat echo this admission pending. (12) BPH (benign prostatic hyperplasia): Plan: cont flomax (13) DVT prophylaxis: Plan: heparin 5000 TID while awaiting surgery post-op -- consider SC lovenox or once daily xarelto or similar (14) Hepatitis C antibody positive in blood: Plan: HepC screen was positive send HepC RNA in am for confirmation Plan: updated at bedside History of Present Illness Chief Complaint: fall, left leg pain Primary Care Provider: Aggie Mccollum MD 65yo male with chronic hypoxic resp failure on home O2 3 L, 2nd to severe COPD, along with right sided lung ca in 2012 s/p RUL lobectomy, and prior DVT during his lung cancer treatment - presents to [facility] after a fall this am. He was coming out of his house and slipped on ice next to his vehicle. Thinks he hit the left leg on the car. He had immediate pain in the left leg. Could not get up - 911 was called by his . Brought to [facility] - x-rays showed left tib-fib fractures, both displaced. His tib-fib fracture was splinted, and orthopedics was contacted by phone. They advised hospital admission for potential surgery of the fractures. Patient states he has baseline dyspnea on exertion with walking short distances. Gets short of breath with walking only 10-20 feet. Has been getting chest pain episodes - at rest and with activity - up to a year in time, perhaps even longer. Episodes last minutes to hours. He describes it as a tightness - like "an elephant sitting on my chest." [facility] was getting ready to refer him to cardiology for evaluation of these pains. He has had negative stress tests in the past. No prior h/o CAD. With respect to his past DVT - he took coumadin for a period of time and ultima tely came off of such. he has had no recurrent VTE since that time. Allergies Allergy/AdvReac Type Severity Reaction Status Date / Time bee venom protein (honey bee) Allergy Unknown LOCAL Verified 04/01/21 08:48 SWELLING diltiazem Allergy Unknown REDNESS Verified 04/01/21 08:48 "MADE ME LOOK LIKE A STRAWBERRY" Home Medications Medication Instructions Recorded Confirmed Type aspirin 81 mg tablet,delayed 81 mg PO HS 02/11/18 04/13/21 History release (Aspir-Low) multivitamin 1 tab PO QAM 02/11/18 04/13/21 History tamsulosin 0.4 mg capsule 0.4 mg PO DAILY #90 cap 10/01/20 04/13/21 Rx ketoconazole 2 % topical cream 1 applic TOPICAL DAILY #15 g 10/08/20 04/13/21 Rx naproxen 500 mg tablet 500 mg PO BID PRN #30 tab 12/31/20 04/13/21 Rx albuterol sulfate 90 mcg/actuation 2 puff INH Q4H PRN #3 inhaler 01/05/2109/25 Rx aerosol inhaler metoprolol succinate 50 mg 50 mg PO QAM #90 tab 02/05/21 04/13/21 Rx tablet,extended release 24 hr (Toprol XL) fluticasone fur. 100 mcg-umeclid 1 inh INH Q24H #180 ea 03/09/21 04/13/21 Rx 62.5 mcg-vilant 25 mcg inhalat.powder (Trelegy Ellipta) ipratropium 0.5 mg-albuterol 3 mg 3 ml INH Q4H PRN #90 ml 03/09/21 04/13/21 Rx (2.5 mg base)/3 mL nebulization soln hydrocortisone 1 % topical cream 1 applic TOPICAL BID PRN 04/01/21 04/13/21 History (Anti-Itch (hydrocortisone)) triamcinolone acetonide 0.025 % 1 applic TOPICAL DAILY 04/01/21 04/13/21 History topical ointment azithromycin 250 mg tablet 250 mg PO DIRECTED 04/13/21 04/13/21 History pramipexole 1 mg tablet 3 mg PO HS 04/13/21 04/13/21 History Past Med/Surg History Medical History (Updated 04/14/21 @ 00:26 by Tevin Carlin) Anemia COPD (chronic obstructive pulmonary disease) Dependence on continuous supplemental oxygen H/O deep venous thrombosis H/O testicular mass Lung cancer RUL, s/p lobectomy - [facility], 2012 [place] Obesity Pancreatitis Periodic limb movement disorder Peyronie's disease Rectus sheath hematoma Restless leg syndrome Stage 4 very severe COPD by GOLD classification Surgical History History of lumbar laminectomy History of lung surgery Hx of cholecystectomy (1990) Hx of fusion of cervical spine Family History Father Stroke syndrome Gallbladder disease Mother Gallbladder disease Lung disease Hypertension Cardiac disorder Congestive heart failure Denies family history of Ovarian cancer Prostate cancer Myocardial infarction Breast cancer Colorectal cancer Social History Smoking Status: Former smoker Tobacco Type: Cigarettes Cigarettes Per Day: 20-30; Second Hand Exposure: No; Hx Alcohol Use: Yes Alcohol type: beer Hx Substance Use: No Preferred Language: Tajik Communication Ability: Effective Visual Impairment: No Limitations Hearing Ability: Use of Hearing Aid Cath Laboratory Technician Required: No Beliefs That Will Affect Care: None marital status: Current Living Situation: Spouse Current Living Situation Comment: Lives with current occupational status: employed current occupation: [employer] Feels Safe at Home: Yes Childhood Exposure to Second-Hand Smoke: Yes Dental Care, Regularly: No Physical Activity Frequency: 3-4 Times per Week Seatbelt Use: sometimes Sunscreen Use: No Assistive Devices: Oxygen - Continuous Review of Systems Review of Systems: Gen: no fevers, chills, anorexia. No weight loss. Eyes: no change in vision. HENT: no ear pain, sore throat, loss of taste/smell, dysphagia. CV: chest pain episodes - see HPI. No orthopnea. Pulm: chronic daily cough, dyspnea at rest, dyspnea w/ exertion, wheezing. GI: no abd pain/N/V. : no dysuria; occasional urinary incontinence. musclo: left leg pain due to fractures. Skin: "psoriasis" lesions on arms - Rx with steroid cream. Neuro: chronic numbness of feet. Endo: denies diabetes. Psych: denies anxiety/depression. Physical Exam Physical Exam: gen - audible wheezing heard without a stethoscope; gets dyspneic with moving about in the bed; obese; otherwise NAD eyes - PERRL mouth - MMM neck - no JVD heart - tachy, s1 s2, no murmur; heart tones are distant lungs - diffuse wheezes b/l, airation fair at best, dyspnea occurs with minimal movement abd - soft, NT, ND, BS+ ext - trace edema right leg, pulses R foot 2+; left leg in splint skin - no generalized rash neuro - strength 5/5 b/l upper extremities; able to wiggle toes L foot; strength R foot 5/5 psych - a/o x 3, normal affect lymph - no cervical lymph nodes palpated Results & Data Results & Data ([facility]) Vital Signs (Past 12 Hours) Vital Signs Temp Pulse Resp BP Pulse Ox 04/13/21 11:46 37.5 C 88 18 117/73 98 Laboratory Results Laboratory Results - last 24 hr 04/13/21 04/13/21 04/13/21 12:10 12:10 12:10 WBC 8.19 RBC 4.48 L Hgb 13.1 L Hct 40.9 L MCV 91.3 MCH 29.2 MCHC 32.0 RDW Std Deviation 44.8 RDW Coeff of Dinesh 13.5 Plt Count 195 MPV 10.1 Immature Gran % (Auto) 0.4 Neut % (Auto) 74.7 Lymph % (Auto) 14.0 [place] % (Auto) 8.3 Eos % (Auto) 2.2 Baso % (Auto) 0.4 Neut # (Auto) 6.12 Lymph # (Auto) 1.15 L [place] # (Auto) 0.68 H Eos # (Auto) 0.18 Baso # (Auto) 0.03 Immature Gran # (Auto) 0.03 H PT 9.8 INR 1.0 APTT 28.2 PTT Ratio 1.1 Sodium 138 Potassium 4.2 Chloride 101 Carbon Dioxide 33 H Anion Gap 4 BUN 16 Creatinine 1.01 Est Cr Clr Drug Dosing 94.0 Est GFR ( Amer) 90.0 Est GFR (Non-Af Amer) 77.7 BUN/Creatinine Ratio 15.8 Glucose 122 H Calcium 8.8 Total Bilirubin 0.4 AST 18 ALT 16 Alkaline Phosphatase 65 Total Protein 6.5 Albumin 3.6 Globulin 2.9 Albumin/Globulin Ratio 1.2 Lipase 17 Hepatitis C Ab Screen SARS-CoV-2, RNA, NAAT 04/13/21 04/13/21 12:10 12:10 WBC RBC Hgb Hct MCV MCH MCHC RDW Std Deviation RDW Coeff of Dinesh Plt Count MPV Immature Gran % (Auto) Neut % (Auto) Lymph % (Auto) [place] % (Auto) Eos % (Auto) Baso % (Auto) Neut # (Auto) Lymph # (Auto) [place] # (Auto) Eos # (Auto) Baso # (Auto) Immature Gran # (Auto) PT INR APTT PTT Ratio Sodium Potassium Chloride Carbon Dioxide Anion Gap BUN Creatinine Est Cr Clr Drug Dosing Est GFR ( Amer) Est GFR (Non-Af Amer) BUN/Creatinine Ratio Glucose Calcium Total Bilirubin AST ALT Alkaline Phosphatase Total Protein Albumin Globulin Albumin/Globulin Ratio Lipase Hepatitis C Ab Screen Pos A SARS-CoV-2, RNA, NAAT NEGATIVE Diagnostic Findings Chest X-Ray 04/13/21 11:59 XR chest 1V portable HISTORY: Atypical Chest Pain COMPARISON: Chest 07/01/2020. FINDINGS: Emphysema is again noted. The heart remains mildly enlarged. There is chronic interstitial thickening at the lung bases. Scarlike densities again noted within the right hemithorax. There is suture material within the right hilum with associated volume loss of the right hemithorax consistent with postoperative change. This is similar to the prior study. No pneumothorax. No pleural effusion. IMPRESSION: 1. No significant change compared to the prior study. No acute process. 2. Emphysema and postoperative changes again noted. ACT 112: Negative or not required by law. Electronically signed by: Terrance Chen M.D. 04/13/2021 12:36 PM Tibia/Fibula X-Ray 04/13/21 11:59 XR tibia fibula LT 2V CLINICAL HISTORY: fall. Left lower leg pain. COMPARISON STUDY: None. FINDINGS: Displaced spiral fractures within the proximal shaft of the left fibula and mid to distal shaft of the left tibia. The tibial fracture demonstrates up to 1.8 cm of lateral displacement. The fibular fracture demonstrates up to 12 mm of posterior and lateral displacement. Soft tissue swelling within the left lower leg. No radiopaque foreign bodies. IMPRESSION: Displaced left tibial and fibular fractures as described above. ACT 112: Negative or not required by law. Electronically signed by: Terrance Chen M.D. 04/13/2021 12:38 PM EKG - my reading - NSR, no ST changes Code Status & VTE Plan Code Status conditional code - CPR is ok, no intubation/mech ventilation PG Care Time/CCT Total # of Minutes Spent Total Time Spent with Patient: Total time spent is greater than 50% in coordination of care (as documented) at patient's floor/unit and/or counseling patient: Coding Level of Care Code 03875 Initial Inpt Care Lvl 3 Diagnoses Closed fracture of left fibula and tibia S82.202A; S82.402A Encounter type: initial encounter COPD, severe J44.9 Chronic respiratory failure with hypoxia J96.11 Chest pain R07.9 H/O deep venous thrombosis Z86.718 Restless leg syndrome G25.81 Anemia D64.9 Obesity E66.9 Lung cancer C34.90 Idiopathic progressive polyneuropathy G60.3 Cardiomyopathy, nonischemic I42.8 BPH (benign prostatic hyperplasia) N40.0 DVT prophylaxis Z29.9 Hepatitis C antibody positive in blood R76.8 (1) Closed fracture of left fibula and tibia Encounter type: initial encounter Qualified Code(s): S82.202A - Unspecified fracture of shaft of left tibia, initial encounter for closed fracture; S82.402A - Unspecified fracture of shaft of left fibula, initial encounter for closed fracture
--- NOTE | 2021-04-13 14:48 | Orthopedic Consultation ---
Date of Service April 13, 2021 Assessment & Plan (1) Closed fracture of left fibula and tibia: 65 yo M with several significant medical comorbidities presents after fall resulting in displaced tibial shaft fracture with comminuted concomitant fibular fracture. Requires surgical stabilization to return to ambulation. Will need to be medically optimized and cleared. Appreciate Hospitalists admission. - Added to surgical schedule for tomorrow - NPO at midnight - Splint elevate overnight for soft tissue rest - Pain control per hospitalists. - Will need 6 weeks of DVT chemoppx postoperatively, starting POD1. Begin TEDs/SCDs immediately. Preoperative subcutaneous heparin okay during the preoperative work-up -hold after midnight. - Consider TXA for blood preservation I did discussion with the patient and his at the bedside. 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 His goal is to return to normal walking. I reviewed the diagnosis prognosis and treatment options. I recommended close reduction intramedullary nail fixation of the tibia. The fibula fracture is clinically unimportant if the tibia is well stabilized. We discussed the risks associated with surgery which includes but is not limited to infection, neurovascular injury, arthrofibrosis of the knee or ankle, nonunion, malunion, symptomatic hardware, need for repeat or revision procedures, wound healing complications, anterior knee pain from the nail entry site, pain syndrome, blood clots, and complications related anesthesia. He and his asked appropriate questions, demonstrated a good understanding, and wanted proceed with surgery as soon as reasonably possible. History of Present Illness Reason for Consultation: Left tibia fracture Requesting Physician: . Attending Physician: Brayden Mccurdy MD 65-year-old male with a past medical history significant for COPD (severe) requiring 3 L oxygen, lobectomy for lung cancer, DVT presents with a tibia and fibula fracture that occurred after a fall today. 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 He does report some neuropathy in the bilateral lower extremities, but denies any previous treatment for tibial knee or ankle injuries. Denies any open wounds at the scene. Was unable to bear weight. He was brought in by EMS. Allergies Allergy/AdvReac Type Severity Reaction Status Date / Time bee venom protein (honey bee) Allergy Unknown LOCAL Verified 04/01/21 08:48 SWELLING diltiazem Allergy Unknown REDNESS Verified 04/01/21 08:48 "MADE ME LOOK LIKE A STRAWBERRY" Home Medications Medication Instructions Recorded Confirmed Type aspirin 81 mg tablet,delayed 81 mg PO HS 02/11/18 04/13/21 History release (Aspir-Low) multivitamin 1 tab PO QAM 02/11/18 04/13/21 History tamsulosin 0.4 mg capsule 0.4 mg PO DAILY #90 cap 10/01/20 04/13/21 Rx ketoconazole 2 % topical cream 1 applic TOPICAL DAILY #15 g 10/08/20 04/13/21 Rx naproxen 500 mg tablet 500 mg PO BID PRN #30 tab 12/31/20 04/13/21 Rx albuterol sulfate 90 mcg/actuation 2 puff INH Q4H PRN #3 inhaler 01/05/21 04/13/21 Rx aerosol inhaler metoprolol succinate 50 mg 50 mg PO QAM #90 tab 02/05/21 04/13/21 Rx tablet,extended release 24 hr (Toprol XL) fluticasone fur. 100 mcg-umeclid 1 inh INH Q24H #180 ea 03/09/21 04/13/21 Rx 62.5 mcg-vilant 25 mcg inhalat.powder (Trelegy Ellipta) ipratropium 0.5 mg-albuterol 3 mg 3 ml INH Q4H PRN #90 ml 03/09/21 04/13/21 Rx (2.5 mg base)/3 mL nebulization soln hydrocortisone 1 % topical cream 1 applic TOPICAL BID PRN 04/01/21 04/13/21 History (Anti-Itch (hydrocortisone)) triamcinolone acetonide 0.025 % 1 applic TOPICAL DAILY 04/01/21 04/13/21 History topical ointment azithromycin 250 mg tablet 250 mg PO DIRECTED 04/13/21 04/13/21 History pramipexole 1 mg tablet 3 mg PO HS 04/13/21 04/13/21 History prednisone 20 mg tablet 20 mg PO DAILY 04/13/21 04/13/21 History Past Med/Surg History Medical History Abdominal pain COPD (chronic obstructive pulmonary disease) COPD exacerbation H/O testicular mass Lung cancer Pancreatitis Pneumonia Rectus sheath hematoma Tachycardia Surgical History History of lumbar laminectomy History of lung surgery Hx of cholecystectomy (1990) Hx of fusion of cervical spine Family History Father Stroke syndrome Gallbladder disease Mother Gallbladder disease Lung disease Hypertension Cardiac disorder Congestive heart failure Other Family history non-contributory Denies family history of Ovarian cancer Prostate cancer Myocardial infarction Breast cancer Colorectal cancer Social History Smoking Status: Former smoker Tobacco Type: Cigarettes Cigarettes Per Day: 20-30; Second Hand Exposure: No; Hx Alcohol Use: Yes Hx Substance Use: No Preferred Language: Kinyarwanda Visual Impairment: No Limitations Hearing Ability: Use of Hearing Aid marital status: Current Living Situation: Spouse current occupational status: employed current occupation: [employer] Feels Safe at Home: Yes Childhood Exposure to Second-Hand Smoke: Yes Dental Care, Regularly: No Physical Activity Frequency: 3-4 Times per Week Seatbelt Use: sometimes Sunscreen Use: No Review of Systems All systems reviewed & are unremarkable except as noted in HPI & below. Physical Exam . Constitutional well developed and well nourished; no acute distress and not intoxicated appearing ENMT external ear and nose normal, oropharynx normal Respiratory normal respiratory effort; no respiratory distress Nasal cannula oxygen Cardiovascular Extremities: normal capillary refill; no edema Skin no rashes, warm and dry Psychiatric A+Ox3, euthymic affect Results & Data Results & Data Laboratory Results . Laboratory Tests 04/13/21 04/13/21 04/13/21 12:10 12:10 12:10 Hgb 13.1 L Hct 40.9 L PTT Ratio 1.1 Creatinine 1.01 Glucose 122 H SARS-CoV-2, RNA, NAAT 04/13/21 12:10 Hgb Hct PTT Ratio Creatinine Glucose SARS-CoV-2, RNA, NAAT NEGATIVE Diagnostic Findings Plain films of the knee tibia-fibula and ankle demonstrate displaced fracture of the tibia with a short oblique pattern at the distal diaphysis. There is a spike to the proximal tibia projecting towards the medial soft tissues, so I revised the splint to offload this area. The fibula is a long oblique comminuted fracture pattern. PG Care Time/CCT Total # of Minutes Spent Total Time Spent with Patient: Total time spent is greater than 50% in coordination of care (as documented) at patient's floor/unit and/or counseling patient: Coding Level of Care Code 53489 Inpt Consult Level 4 (57 - DECISION FOR SURGERY) Diagnoses Closed fracture of left fibula and tibia S82.202A; S82.402A Encounter type: initial encounter (1) Closed fracture of left fibula and tibia Encounter type: initial encounter Qualified Code(s): S82.202A - Unspecified fracture of shaft of left tibia, initial encounter for closed fracture; S82.402A - Unspecified fracture of shaft of left fibula, initial encounter for closed fracture
[2021-04-13] MEDS ORDERED: ALBUT/IPRATROP 3MG/0.5MG NEB 3 ML VIAL NEB STA (17:03)
--- NOTE | 2021-04-13 17:41 | Anesthesiology Consultation ---
Date of Service April 13, 2021 Assessment & Plan (1) Encounter for pre-operative examination: Chart Review Chart Review: Acceptable Risk for Surgery (necessary surgery) and Patient NOT seen in Pre Admission Testing Consults Requested none History Surgery Operation Date: 04/14/21 09:45 Proposed Procedures p Intramedullary Nail Left Tibia - Brayden Mccurdy MD Height/Weight Height: 5 ft 11 in Weight: 115 kg Allergies Allergy/AdvReac Type Severity Reaction Status Date / Time bee venom protein (honey bee) Allergy Unknown LOCAL Verified 04/01/21 08:48 SWELLING diltiazem Allergy Unknown REDNESS Verified 04/01/21 08:48 "MADE ME LOOK LIKE A STRAWBERRY" Medications Home Medications Medication Instructions Recorded Confirmed Last Taken aspirin 81 mg tablet,delayed 81 mg PO HS 02/11/18 04/13/21 07/14/18 release (Aspir-Low) multivitamin 1 tab PO QAM 02/11/18 04/13/21 07/15/18 tamsulosin 0.4 mg capsule 0.4 mg PO DAILY #90 cap 10/01/20 04/13/21 Unknown ketoconazole 2 % topical cream 1 applic TOPICAL DAILY #15 g 10/08/20 04/13/21 Unknown naproxen 500 mg tablet 500 mg PO BID PRN #30 tab 12/31/20 04/13/21 Unknown albuterol sulfate 90 mcg/actuation 2 puff INH Q4H PRN #3 inhaler 01/05/2109/25 Unknown aerosol inhaler metoprolol succinate 50 mg 50 mg PO QAM #90 tab 02/05/21 04/13/21 Unknown tablet,extended release 24 hr (Toprol XL) fluticasone fur. 100 mcg-umeclid 1 inh INH Q24H #180 ea 03/09/21 04/13/21 Unknown 62.5 mcg-vilant 25 mcg inhalat.powder (Trelegy Ellipta) ipratropium 0.5 mg-albuterol 3 mg 3 ml INH Q4H PRN #90 ml 03/09/21 04/13/21 Unknown (2.5 mg base)/3 mL nebulization soln hydrocortisone 1 % topical cream 1 applic TOPICAL BID PRN 04/01/21 04/13/21 Unknown (Anti-Itch (hydrocortisone)) triamcinolone acetonide 0.025 % 1 applic TOPICAL DAILY 04/01/21 04/13/21 Unknown topical ointment azithromycin 250 mg tablet 250 mg PO DIRECTED 04/13/21 04/13/21 Unknown pramipexole 1 mg tablet 3 mg PO HS 04/13/21 04/13/21 Unknown prednisone 20 mg tablet 20 mg PO DAILY 04/13/21 04/13/21 Unknown Active Medications Generic Name Dose Route Start Last Admin Trade Name Antoniq PRN Reason Stop Dose Admin Morphine Sulfate 4 mg 04/13/21 11:59 04/13/21 13:20 Morphine Sulfate 4 Mg/Ml 1 Ml Carp\\Vial IV 04/27/21 11:58 4 mg Q30M PRN Administration Pain Past Medical History Medical History Abdominal pain Anemia COPD exacerbation Dependence on continuous supplemental oxygen H/O deep venous thrombosis H/O testicular mass Lung cancer Obesity Pancreatitis Peyronie's disease Pneumonia Rectus sheath hematoma Stage 4 very severe COPD by GOLD classification Tachycardia Past Family History Family History Father Stroke syndrome Gallbladder disease Mother Gallbladder disease Lung disease Hypertension Cardiac disorder Congestive heart failure Other Family history non-contributory Denies family history of Ovarian cancer Prostate cancer Myocardial infarction Breast cancer Colorectal cancer Past Surgical History Surgical History History of lumbar laminectomy History of lung surgery Hx of cholecystectomy (1990) Hx of fusion of cervical spine Social History Smoking Status: Former smoker Smoking cigarettes per day: 20-30 Hx Alcohol Use: Yes Hx Substance Use: No Physical Exam Vital Signs Last Vital Signs Temp 37.5 C 04/13/21 11:46 Pulse 96 H 04/13/21 17:29 Resp 18 04/13/21 17:29 BP 105/84 04/13/21 17:29 Pulse Ox 98 04/13/21 17:29 Testing Laboratory Results 04/13/21 12:10 04/13/21 12:10 PT 9.8 Seconds (9.0-12.0) 04/13/21 12:10 INR 1.0 (0.9-1.1) 04/13/21 12:10 APTT 28.2 Seconds (21.0-31.0) 04/13/21 12:10 Electrocardiogram Date: 04/13/21 Findings: + ST @ (101) Chest X-Ray Date: 04/13/21 XR chest 1V portable HISTORY: Atypical Chest Pain COMPARISON: Chest 07/01/2020. FINDINGS: Emphysema is again noted. The heart remains mildly enlarged. There is chronic interstitial thickening at the lung bases. Scarlike densities again noted within the right hemithorax. There is suture material within the right hilum with associated volume loss of the right hemithorax consistent with postoperative change. This is similar to the prior study. No pneumothorax. No pleural effusion. IMPRESSION: 1. No significant change compared to the prior study. No acute process. 2. Emphysema and postoperative changes again noted. ACT 112: Negative or not required by law. Electronically signed by: Terrance Chen M.D. 04/13/2021 12:36 PM
--- NOTE | 2021-04-13 18:27 | Cardiology Consultation ---
Date of Consultation April 13, 2021 Assessment & Plan (1) Chest pain: (2) Mobitz I: (3) Preop cardiovascular exam: ASSESSMENT/PLAN: 1. Chest pain: Chest pain is atypical in that it has been occurring for many years and can last several hours in duration. It is not exertional, but can occur at any time. Has had negative myocardial perfusion study in 2018, despite symptoms that began years before. Further ischemic evaluation is not necessary for chronic and stable symptoms, prior to upcoming procedure. Etiology for chest pain not completely known, but could be related to his significant pulmonary issues. 2. Preoperative cardiac assessment: No definite anginal symptoms. 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 Ischemic evaluation is not necessary prior to upcoming procedure which has been deemed necessary for him to regain ambulation by orthopedics. Acceptable cardiac risk. Concerned that he may be of more significant risk from a pulmonary standpoint given severe COPD. Will defer pulmonary status to primary hospitalist service/Anesthesiology. He follows with pulmonology as an outpatient. 3. Mobitz 1: Carries a history of Mobitz 1 per electrophysiology records in 2018. Denies syncope or near-syncope. Per records, episodes in the past were brief and during normal sleeping hours. No specific treatment necessary at this time. 4. Disposition: Please call with any other questions or concerns. Cardiology will sign off at this time. He would like to follow-up with Dr. Holloway as an outpatient. Patient care discussed with Dr. Carlin of the admitting hospitalist service. Thank you for allowing me to participate in the care of your patient. Please call for any other questions or concerns. Sincerely, Lewis Hester M.D. History of Present Illness Reason for Consultation: Recurrent chest pain, preoperative cardiac assessment Requesting Physician: Dr. Carlin Attending Physician: Dr. Carlin History of Present Illness Mr. Payan is a very pleasant 65-year-old gentleman with a history significant for Mobitz 1, severe COPD on supplemental oxygen (3-4 L), lung cancer s/p right upper lobectomy 2011 (chemo and XRT 2011), and DVT while undergoing treatment for lung cancer in the past. He was previously followed by Dr. Cruz, last seen in 2018. He is scheduled for cardiology consultation as an outpatient with Dr. Holloway. He has had the following studies/procedures: 1. Nuclear stress 08/12/2017: Negative myocardial perfusion study for ischemia. EF 56%. 2. Echo 09/22/2017: EF 45-50%. No regional wall motion abnormalities. 3. PFT 03/13/2021: Very severe airflow obstruction. Lung volumes reduced. DLCO reduced. He was admitted on 04/13/2021 with left tibia and fibula fracture which occurred after falling. He had a mechanical fall, stating that he slipped on the icy conditions outside. He denies syncope, near-syncope, or other cardiac symptom at that time. He was seen by Orthopedics and surgical intervention was recommended, with orthopedic stating that his tibia fracture require surgical stabilization to return to ambulation. He has had chronic chest discomfort described as elephant sitting on his chest since 2014 or 2015. It occurs at random, even at rest and sometimes he wakes up in the morning with such symptoms. Symptoms typically last a few minutes to several hours. There is no radiation of the pain and his shortness of breath does not worsen during a chest pain episode. He has been evaluated in the past for these symptoms including a myocardial perfusion study in 2018 which was negative for ischemia. Chest discomfort pattern has not progressed over time. His last episode was approximately a week ago and before that, his most recent chest pain was several months before. He has chronic but stable dyspnea with exertion. He uses supplemental oxygen 3 L continuously and sometimes 4 L with ambulation. He started exercising on a treadmill at home and stationary bicycle. He exercises for 10-12 minutes and has been doing so for the past week without exertional chest discomfort. He denies syncope, near-syncope, palpitations, melena, or hematochezia. He has chronic lower extremity swelling at his ankles. He has been taking metoprolol for years for a baseline tachycardia. In the past, he was seen by Dr. 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 There were no significant pauses or bradycardia and no specific treatment was recommended. Review of systems: As above. Review of systems otherwise negative/unre markable. Family history: Mother had CHF. Father had stroke. No known premature CAD. Social history: He quit smoking in 2011 after 1-2 packs per day for approximately 40 years. Occasional alcohol. Lives at home with his , Linda. He has 3 children. His was present at the bedside. Allergies Allergy/AdvReac Type Severity Reaction Status Date / Time bee venom protein (honey bee) Allergy Unknown LOCAL Verified 04/01/21 08:48 SWELLING diltiazem Allergy Unknown REDNESS Verified 04/01/21 08:48 "MADE ME LOOK LIKE A STRAWBERRY" Home Medications Medication Instructions Recorded Confirmed Type aspirin 81 mg tablet,delayed 81 mg PO HS 02/11/18 04/13/21 History release (Aspir-Low) multivitamin 1 tab PO QAM 02/11/18 04/13/21 History tamsulosin 0.4 mg capsule 0.4 mg PO DAILY #90 cap 10/01/20 04/13/21 Rx ketoconazole 2 % topical cream 1 applic TOPICAL DAILY #15 g 10/08/20 04/13/21 Rx naproxen 500 mg tablet 500 mg PO BID PRN #30 tab 12/31/20 04/13/21 Rx albuterol sulfate 90 mcg/actuation 2 puff INH Q4H PRN #3 inhaler 01/05/21 04/13/21 Rx aerosol inhaler metoprolol succinate 50 mg 50 mg PO QAM #90 tab 02/05/21 04/13/21 Rx tablet,extended release 24 hr (Toprol XL) fluticasone fur. 100 mcg-umeclid 1 inh INH Q24H #180 ea 03/09/21 04/13/21 Rx 62.5 mcg-vilant 25 mcg inhalat.powder (Trelegy Ellipta) ipratropium 0.5 mg-albuterol 3 mg 3 ml INH Q4H PRN #90 ml 03/09/21 04/13/21 Rx (2.5 mg base)/3 mL nebulization soln hydrocortisone 1 % topical cream 1 applic TOPICAL BID PRN 04/01/21 04/13/21 History (Anti-Itch (hydrocortisone)) triamcinolone acetonide 0.025 % 1 applic TOPICAL DAILY 04/01/21 04/13/21 History topical ointment azithromycin 250 mg tablet 250 mg PO DIRECTED 04/13/21 04/13/21 History pramipexole 1 mg tablet 3 mg PO HS 04/13/21 04/13/21 History prednisone 20 mg tablet 20 mg PO DAILY 04/13/21 04/13/21 History Patient History Medical History (Updated 04/13/21 @ 18:36 by Peña Hester MD) Abdominal pain Anemia COPD exacerbation Dependence on continuous supplemental oxygen H/O deep venous thrombosis H/O testicular mass Lung cancer Mobitz I Obesity Pancreatitis Peyronie's disease Pneumonia Rectus sheath hematoma Stage 4 very severe COPD by GOLD classification Tachycardia Surgical History History of lumbar laminectomy History of lung surgery Hx of cholecystectomy (1990) Hx of fusion of cervical spine Family History Father Stroke syndrome Gallbladder disease Mother Gallbladder disease Lung disease Hypertension Cardiac disorder Congestive heart failure Other Family history non-contributory Denies family history of Ovarian cancer Prostate cancer Myocardial infarction Breast cancer Colorectal cancer Social History Smoking Status: Former smoker Tobacco Type: Cigarettes Cigarettes Per Day: 20-30; Second Hand Exposure: No; Hx Alcohol Use: Yes Hx Substance Use: No Preferred Language: Kittitian Visual Impairment: No Limitations Hearing Ability: Use of Hearing Aid marital status: Current Living Situation: Spouse current occupational status: employed current occupation: [employer] Feels Safe at Home: Yes Childhood Exposure to Second-Hand Smoke: Yes Dental Care, Regularly: No Physical Activity Frequency: 3-4 Times per Week Seatbelt Use: sometimes Sunscreen Use: No Physical Exam Physical Exam: Gen.: No acute distress. Alert and oriented. HEENT: Anicteric sclera. Neck: No JVD. No bruits. Normal carotid upstrokes bilaterally. Cardiac: PMI was nonpalpable. No ventricular heave. Very distant heart sounds. No murmurs, rubs, or gallops. Pulmonary: Decreased breath sounds throughout with expiratory wheezing bilaterally. Abdomen: Soft, nontender, nondistended, with normoactive bowel sounds. No bruits noted. Extremities: 2+ radial pulses bilaterally. 2+ right dorsalis pedis pulse. Left lower extremity bandaged. Trace right lower extremity edema. No cyanosis. Psychiatric: Affect appears appropriate. Results & Data ([facility]) Vital Signs (Past 12 Hours) Vital Signs Temp Pulse Pulse Resp BP BP Pulse Ox 04/13/21 17:29 96 H 18 105/84 98 04/13/21 16:00 74 16 102/66 95 04/13/21 14:51 92 H 96 H 102/66 96 04/13/21 11:46 37.5 C 88 18 117/73 98 Laboratory Results Laboratory Results - last 24 hr 04/13/21 04/13/21 04/13/21 12:10 12:10 12:10 WBC 8.19 RBC 4.48 L Hgb 13.1 L Hct 40.9 L MCV 91.3 MCH 29.2 MCHC 32.0 RDW Std Deviation 44.8 RDW Coeff of Dinesh 13.5 Plt Count 195 MPV 10.1 Immature Gran % (Auto) 0.4 Neut % (Auto) 74.7 Lymph % (Auto) 14.0 Ray % (Auto) 8.3 Eos % (Auto) 2.2 Baso % (Auto) 0.4 Neut # (Auto) 6.12 Lymph # (Auto) 1.15 L Ray # (Auto) 0.68 H Eos # (Auto) 0.18 Baso # (Auto) 0.03 Immature Gran # (Auto) 0.03 H PT 9.8 INR 1.0 APTT 28.2 PTT Ratio 1.1 Sodium 138 Potassium 4.2 Chloride 101 Carbon Dioxide 33 H Anion Gap 4 BUN 16 Creatinine 1.01 Est Cr Clr Drug Dosing 94.0 Est GFR ( Amer) 90.0 Est GFR (Non-Af Amer) 77.7 BUN/Creatinine Ratio 15.8 Glucose 122 H Calcium 8.8 Total Bilirubin 0.4 AST 18 ALT 16 Alkaline Phosphatase 65 Total Protein 6.5 Albumin 3.6 Globulin 2.9 Albumin/Globulin Ratio 1.2 Lipase 17 SARS-CoV-2, RNA, NAAT 04/13/21 12:10 WBC RBC Hgb Hct MCV MCH MCHC RDW Std Deviation RDW Coeff of Dinesh Plt Count MPV Immature Gran % (Auto) Neut % (Auto) Lymph % (Auto) Ray % (Auto) Eos % (Auto) Baso % (Auto) Neut # (Auto) Lymph # (Auto) Ray # (Auto) Eos # (Auto) Baso # (Auto) Immature Gran # (Auto) PT INR APTT PTT Ratio Sodium Potassium Chloride Carbon Dioxide Anion Gap BUN Creatinine Est Cr Clr Drug Dosing Est GFR ( Amer) Est GFR (Non-Af Amer) BUN/Creatinine Ratio Glucose Calcium Total Bilirubin AST ALT Alkaline Phosphatase Total Protein Albumin Globulin Albumin/Globulin Ratio Lipase SARS-CoV-2, RNA, NAAT NEGATIVE Diagnostic Findings ECG personally reviewed: ECG 04/13/2021 at 5:25 p.m.: Sinus tachycardia 101 beats per minute. Otherwise, normal ECG. PFT report reviewed from 03/13/2021: Very severe airflow obstruction. Lung volumes reduced. DLCO reduced. Nuclear stress 08/12/2017: Negative myocardial perfusion study for ischemia. EF 56%. Echo 09/22/2017: EF 45-50%. No regional wall motion abnormalities. Chest x-ray 04/13/2021: No acute process per Radiology. Emphysema and postoperative changes. Tibia/fibula x-ray 04/13/2021: Displaced left tibial and fibular fractures per Radiology. Medications Administered Current Inpatient Medications Morphine Sulfate (Morphine Sulfate 4 Mg/Ml 1 Ml Carp\\Vial) 4 mg IV Q30M PRN PRN Reason: Pain Stop: 04/27/21 11:58 Last Admin: 04/13/21 18:27 Dose: 4 mg Documented by: PG Care Time/CCT Total # of Minutes Spent Total Time Spent with Patient: Total time spent is greater than 50% in coordination of care (as documented) at patient's floor/unit and/or counseling patient: Coding Level of Care Code 15670 Initial Inpt Care Lvl 2 Diagnoses Chest pain R07.9 Mobitz I I44.1 Preop cardiovascular exam Z01.810
[2021-04-13] MEDS ORDERED: ONDANSETRON INJ 2 MG/ML 2 ML VIAL IV PRN (18:47)
[2021-04-13] MEDS ORDERED: ACETAMINOPHEN 325 MG TAB PO PRN (18:47)
[2021-04-13] MEDS ORDERED: NITROGLYCERIN SL 0.4 MG/TAB TAB SL PRN (18:47)
[2021-04-13] MEDS ORDERED: NON-FORMULARY MEDICATION (Fluticasone-Umeclidin-Vilanter [Trelegy Ellipta] 100-62.5-25 mcg INH SCH (18:47)
[2021-04-13] MEDS ORDERED: HYDROCORTISONE 1% CRM 30 GM TUBE EXT PRN (18:47)
[2021-04-13] MEDS ORDERED: ALBUT/IPRATROP 3MG/0.5MG NEB 3 ML VIAL INH PRN (18:47)
[2021-04-13] MEDS: ALBUTEROL HFA 8 GM INHALER INH SCH ×2 (19:07→19:08)
[2021-04-13] MEDS: HYDROmorphone INJ 0.5 MG/0.5 ML SYR IV PRN (19:28)
[2021-04-13] MEDS: ASPIRIN 81 MG ECTAB PO SCH (21:53)
[2021-04-13] MEDS: HEPARIN SOD 5,000 UNIT/0.5 ML VIAL SQ SCH (21:53)
[2021-04-13] MEDS: PRAMIPEXOLE DIHYDROCHLO 0.5 MG TAB PO SCH (21:53)
[2021-04-13] MEDS: AZITHROMYCIN 250 MG TAB PO SCH (21:53)
--- NOTE | 2021-04-13 22:29 | XCELERA ---
[id number]
[2021-04-14] MEDS: HYDROmorphone INJ 0.5 MG/0.5 ML SYR IV PRN ×3 (03:31→23:58)
[2021-04-14] MEDS: HEPARIN SOD 5,000 UNIT/0.5 ML VIAL SQ SCH ×2 (05:31→16:04)
[2021-04-14] MEDS ORDERED: BUPIVACAINE 0.25% 30 ML VIAL ONE (06:38)
[2021-04-14] MEDS ORDERED: EPINEPHrine INJ 1 MG/ML AMP ONE ×2 (06:38→09:45)
[2021-04-14] MEDS ORDERED: DEXAMETHASONE SOD INJ 4 MG/ML VIAL ONE ×2 (06:38→07:48)
[2021-04-14 06:57] LABS: Hemoglobin 12.8 g/dL (14.0-18.0); Mean Corpuscular Hgb Conc 31.2 g/dL (32-36); Platelet Count 181 K/uL (130-400); RDW Coefficient of Variation 13.5 % (11.5-14.5); RDW Standard Deviation 46.3 fL (36.4-46.3); Red Blood Count 4.41 M/uL (4.7-6.1); White Blood Count 9.67 K/uL (4.8-10.8)
[2021-04-14] MEDS: ALBUTEROL HFA 8 GM INHALER INH SCH ×4 (07:13→18:38)
[2021-04-14 07:33] LABS: BUN Creatinine Ratio 16.3 (10-20); Calcium 8.7 mg/dl (8.5-10.1); Creatinine Clr Calc Pharmacy 91.3 ml/min; Est GFR (African American) 86.9 ml/min; Magnesium 1.9 mg/dl (1.7-2.4); Potassium 4.7 mmol/L (3.5-5.1)
[2021-04-14 07:37] LABS: Ferritin 64.6 ng/ml (8-388)
[2021-04-14 07:42] LABS: Folate (Folic Acid) 15.48 ng/ml (>5.38)
[2021-04-14] MEDS ORDERED: ONDANSETRON INJ 2 MG/ML 2 ML VIAL ONE (07:48)
[2021-04-14] MEDS ORDERED: MIDAZOLAM HCL 1 MG/ML 2ML VIAL ONE ×2 (07:48→13:05)
[2021-04-14] MEDS ORDERED: fentaNYL citrate 100 MCG/2 ML VIAL ONE (07:48)
[2021-04-14] MEDS ORDERED: PROPOFOL IV EMULSION 10 MG/ML 20 ML VIAL IV ONE ×6 (07:48→13:08)
[2021-04-14] MEDS: TRIAMCINOLONE ACET 0.1% OINT 80 GM TUBE TOP SCH (08:11)
[2021-04-14] MEDS: UMECLIDINIUM BROMIDE 62.5MCG/BLISTER 7 PUFFS/INHALER INH SCH (08:12)
[2021-04-14] MEDS: KETOCONAZOLE 2% CR 15 GM TUBE EXT SCH (08:12)
[2021-04-14] MEDS ORDERED: predniSONE 20 MG TAB PO SCH (09:00)
[2021-04-14] MEDS ORDERED: FLUTICASONE/VILANTEROL 100/25MCG 14 PUFFS/INHALER INH SCH (09:00)
[2021-04-14] MEDS ORDERED: BUPIVACAINE 0.5 % 5 MG/1 ML MPF 30ML VIAL ONE (09:45)
[2021-04-14] MEDS: ceFAZolin 3000MG/72.5 ML BAG IV ONE ×2 (09:56→10:20)
[2021-04-14] MEDS ORDERED: KETAMINE 50 MG/5 ML SYRINGE ONE (10:02)
[2021-04-14] MEDS ORDERED: PHENYLEPHRINE HCL 10 MG/ML VIAL ONE (10:28)
[2021-04-14] MEDS ORDERED: ePHEDrine sulfate 50 MG/ML AMP IV PRN (11:27)
[2021-04-14] MEDS ORDERED: ATROPINE SULFATE 0.1 MG/ML 10ML SYR IV PRN (11:27)
[2021-04-14] MEDS ORDERED: ONDANSETRON INJ 2 MG/ML 2 ML VIAL IV PRN ×2 (11:27→14:52)
[2021-04-14] MEDS ORDERED: fentaNYL citrate 100 MCG/2 ML VIAL IV PRN ×2 (11:27→14:06)
[2021-04-14] MEDS ORDERED: PROMETHAZINE HCL 6.25 MG in SODIUM CHLORIDE 0.9% 50 ML IV PRN (11:27)
--- NOTE | 2021-04-14 13:51 | Post Operative Brief Note ---
PG Immediate Post Op with CF Date of Surgery April 14, 2021 Pre & Post Diagnosis Operation Date: 04/14/21 09:45 Pre-Op Diagnosis: Left tibial and fibular shaft fractures Post-Op Diagnosis: Left tibial and fibular shaft fractures, posterior malleolar fracture I identified the patient and participated in the time-out.: Yes Procedure Operation Date: 04/14/21 09:45 Actual Procedures p Intramedullary Nail Left Tibia; Percutaneous Fixation Left Ankle, intraoperative fluoroscopic ankle exam (Left) - Brayden Mccurdy MD Surgeon Brayden Mccurdy MD [employer] Assembler Kevin Waldrop PA-C Estimated Blood Loss 100 Findings See Below There was a short oblique tibial shaft fracture in the distal diaphysis. The fibula fracture was proximal. A posterior malleoli or shear fragment was appreciated after placement of the nail, so percutaneous reduction and screw fixation was performed. All [employer] implants: 10 mm x 345 mm titanium cannulated tibial nail, 5 mm x 38 mm and 5 mm x 46 mm distal locking screws, 5 mm x 44 millimeters proximal dynamic locking screw, 5 mm x 38 mm proximal static locking screw, 10 mm end cap, 5 mm x 50 mm anterior to posterior interf ragmentary screw, 4.5 cannulated by 54 mm anterior to posterior interfragmentary screw. Complications none
--- NOTE | 2021-04-14 13:52 | Fluoroscopy Report ---
FL tibia/fibula LT 2V CLINICAL HISTORY: LT IM NAIL COMPARISON STUDY: Left tibia and fibula radiographs April 13, 2021. FLUOROSCOPY TIME: 3 minutes and 8 seconds. FLUOROSCOPIC IMAGES: 6 FINDINGS: Fluoroscopy was provided during open reduction and internal fixation of the left tibial fra cture with intramedullary jarvis and proximal and distal screws. Fracture alignment has significantly im proved. Alignment of the fibular fracture also appears improved since prior exam. There are no unexpe cted radiopaque foreign bodies. IMPRESSION: Fluoroscopy provided during internal fixation of the left tibial fracture, as described above. ACT 112: Negative or not required by law. Electronically signed by: Alexandr Pompa M.D. 04/14/2021 1:51 PM
[2021-04-14] MEDS ORDERED: ALBUT/IPRATROP 3MG/0.5MG NEB 3 ML VIAL NEB STA (14:05)
[2021-04-14] MEDS ORDERED: bisacodyL 10 MG SUPP PR PRN (14:52)
[2021-04-14] MEDS ORDERED: NALOXONE HCL 0.4 MG/1 ML VIAL/CARP IV PRN (14:52)
[2021-04-14] MEDS ORDERED: METOCLOPRAMIDE HCL INJ 5 MG/ML 2 ML VIAL IV PRN (14:52)
--- NOTE | 2021-04-14 14:56 | Anesthesiology Progress Note ---
Date of Service April 14, 2021 Anesthesia Post Procedure Vital Signs Vital Signs: Temp Pulse Pulse Pulse Resp BP BP 04/14/21 14:52 36.2 C L 118 H 21 113/72 04/14/21 14:25 36.1 C L 107 H 21 101/58 L 04/14/21 14:15 105 H 20 119/61 04/14/21 14:05 105 H 26 H 101/53 L 04/14/21 13:55 105 H 19 100/86 04/14/21 13:45 100 H 18 119/76 04/14/21 13:38 36.2 C L 102 H 21 130/56 L 04/14/21 09:08 37.5 C 98 H 22 102/79 04/14/21 07:14 111 H 20 04/14/21 07:13 111 H 04/14/21 07:00 36.5 C 83 18 132/69 04/14/21 03:35 36.7 C 107 H 22 119/73 04/14/21 01:02 101 H 04/13/21 23:27 36.9 C 110 H 18 160/94 H 04/13/21 22:24 100 H 04/13/21 19:39 37.3 C 107 H 18 119/70 04/13/21 19:08 106 H 22 04/13/21 18:30 37.0 C 108 H 24 120/64 04/13/21 17:29 96 H 18 105/84 04/13/21 16:00 74 16 102/66 Pulse Ox 04/14/21 14:52 92 04/14/21 14:25 94 04/14/21 14:15 93 04/14/21 14:05 94 04/14/21 13:55 90 04/14/21 13:45 96 04/14/21 13:38 92 04/14/21 09:08 98 04/14/21 07:14 96 04/14/21 07:13 04/14/21 07:00 99 04/14/21 03:35 96 04/14/21 01:02 04/13/21 23:27 94 04/13/21 22:24 04/13/21 19:39 93 04/13/21 19:08 92 04/13/21 18:30 90 04/13/21 17:29 98 04/13/21 16:00 95 Pain Intensity Left Lower Leg: Pain Intensity: 4 Transfer of Care Handoff Completed per policy Notes Mental Status: alert / awake / arousable Patient Amnestic to Procedure: Yes Nausea / Vomiting: adequately controlled Pain: adequately controlled Airway Patency, RR, SpO2: stable & adequate BP & HR: stable & adequate Hydration State: stable & adequate Anesthetic Complications: no major complications apparent
--- NOTE | 2021-04-14 14:59 | Operative Report ---
PG Post Operative Report Pre & Post Diagnosis Operation Date: 04/14/21 09:45 Pre-Op Diagnosis: Left tibial and fibular shaft fractures Post-Op Diagnosis: Left tibial and fibular shaft fractures, posterior malleolar fracture I identified the patient and participated in the time-out.: Yes Procedure Operation Date: 04/14/21 09:45 Actual Procedures p Intramedullary Nail Left Tibia; Percutaneous Fixation Left Ankle(Left) - Brayden Mccurdy MD Surgeon Brayden Mccurdy MD Nursing Information Systems Coordinator Kevin Waldrop PA-C Estimated Blood Loss 100 Findings See Below There was a short oblique tibial shaft fracture in the distal diaphysis. The fibula fracture was proximal. A posterior malleoli or shear fragment was appreciated after placement of the nail, so percutaneous reduction and screw fixation was performed. All [employer] implants: 10 mm x 345 mm titanium cannulated tibial nail, 5 mm x 38 mm and 5 mm x 46 mm distal locking screws, 5 mm x 44 millimeters proximal dynamic locking screw, 5 mm x 38 mm proximal static locking screw, 10 mm end cap, 5 mm x 50 mm anterior to posterior interfragmentary screw, 4.5 cannulated by 54 mm anterior to posterior interfragmentary screw. Specimens none Anesthesia Type MAC Spinal Regional Complications none Disposition Accompanied Patient To Recovery: No Disposition: Surgical ICU Indications 65-year-old male admitted after slip and fall resulting in tibial shaft fracture. We discussed definitive management would most optimally be open and close reduction and internal fixation with intramedullary nail. We discussed the risks and benefits in detail, as outlined in the orthopedic consult, and informed consent was obtained. Description of Procedure On the day of surgery should be was greeted in the preoperative holding area and the informed consent was reviewed and confirmed. The surgical site was then identified by the patient and signed by myself. The patient was taken to the operating placed by the OR table and anesthesia was induced. The patient is then positioned on the radiolucent table. All ling prominences were well padded. The leg was then prepped and draped in usual sterile fashion. Surgical timeout was called and verified by all present. Antibiotics were infused, and equipment was available and functional. A linear incision made along the patella tendon. Is 90 appeared conducive to a lateral patellar approach. The retinaculum was opened and the patella tendon was debrided. This allowed access for the start point with the starting pin. Fluoroscopy was used to confirm on AP and lateral. Using the protective sleeve, the opening reamer was advanced under power with fluoroscopic guidance over the guidepin. It was advanced slowly. The opening awl was then used to access the canal down to proximal diaphysis. We then visualized the fracture at the diaphysis. Close reduction maneuvers were attempted. We attempted longitudinal traction with Esmarch bandage. It was suboptimally reduced due to soft tissue entrapment. I made a small incision at the level of the fracture to allow percutaneous clamps. This allowed access to the fracture site for direct reduction. The lobster-claw was finally placed to this incision to allow the bone to be held reduced. The reduction wire was then advanced down into the distal tibia. The nail size was measured off the pin. We then began sequential reaming. We started with 8.0 and used fluoroscopy to guide our reaming. We advanced the reaming in gradual increments up to a 11.5. An 10 mm nail was loaded onto the jig and advanced manually down the canal, while ensuring maintenance of the reduction on fluoroscopy. We then tapped it down into place until we achieve the good position in the distal metaphysis. Attention was then directed distally to perform the interlock screws in using perfect santee sioux technique. 1 interlock screw was placed with a 5 mm diameter. The length was measured using a depth gauge, with fluoroscopic guidance. The more proximal distal interlock screw was then placed in similar technique. We will verifying her positioning the lateral at the distal tibia, I appreciated a vertical disruption of the tibial plafond from a vertically oriented posterior malleolar fracture. We moved to complete fixation of the nail and then returned to address the posterior malleolus fracture. The impaction component was added to the nail jig and the backside pin was used to reduce and compress the fracture further after removing the lobster clamp. The cannula was placed on the jig to allow positioning of the proximal medial to lateral interlocking screws.. The skin incision was made in the appropriate spot. The jig cannulas were then placed against the lateral cortex. To the pro ximal screws were placed one in the static and one in the dynamic positions. Fluoroscopy confirmed maintenance of reduction and adequate position of the implant. Percutaneous incisions were made to allow a periarticular reduction clamp to reduce the posterior malleolar fracture in the anterior to posterior plane. We then percutaneously placed a 5.0 mm interfragmentary screw and a 4.5 mm cannul ated interfragmentary screws from anterior to posterior on the lateral and medial aspects of the tibial nail, respectively. The periarticular clamp was removed and the posterior malleolar fracture was reduced well and adequately fixed. This completed the fixation of the fracture pattern Fluoroscopy was used in both AP and lateral planes to evaluate the entirety of the fracture and implant. Reduction and implant positions were acceptable. The wounds were then thoroughly irrigated with bulb syringe and normal saline. The deep fascial layer was approximated with 0 Vicryl suture. The dermal layer was approximated using 3-0 Vicryl suture. The final skin closure was completed with sugar. The percutaneous fracture reduction incision was closed with 2-0 nylon suture in vertical mattress fashion. Wounds were dressed with sterile Xeroform, sterile gauze, and ABDs before a standard ankle splint was applied. The patient tolerated procedure well, awoke from anesthesia without complication, was extubated in the operating room, and transferred to the PACU in stable condition. Disposition: The patient be non-weightbearing to the left lower extremity. I recommended routine DVT prophylaxis consisting of low molecular weight heparin while an inpatient and transition to oral agent if appropriate for his medical comorbidities. DVT prophylaxis should last 6 weeks. 24 hours of antibiotic prophylaxis should be continued. Physician respiratory therapist assistant attestation: Kevin Waldrop PA-C was present and scrubbed for the duration of the case. He was essential to prepping/draping, patient positioning, retraction, and assistance with wound closure. In particular, skilled assistance was necessary for fracture reduction techniques and positioning for fluoroscopy. I attest to the content of the Intraoperative Record and any orders documented therein. Any exceptions are noted below.
[2021-04-14] MEDS: SODIUM CHLORIDE 0.9% 1000ML 1,000 ML IV SCH ×2 (15:09→21:46)
[2021-04-14] MEDS: METOPROLOL SUCC 50MG EXT REL TAB PO SCH (15:28)
[2021-04-14] MEDS: MULTIVITAMIN TAB PO SCH (15:28)
[2021-04-14] MEDS: TAMSULOSIN HCL 0.4 MG CAP PO SCH (15:28)
[2021-04-14] MEDS: ACETAMINOPHEN 500 MG TAB PO SCH ×2 (15:30→23:56)
[2021-04-14] MEDS: POLYETHYLENE (MIRALAX) 17 GM PACK PO SCH (15:30)
[2021-04-14] MEDS: FERROUS SULFATE 325 MG TAB PO SCH (16:50)
--- NOTE | 2021-04-14 17:39 | Hospitalist Progress Note ---
Date of Service April 14, 2021 Assessment & Plan (1) Closed fracture of left fibula and tibia: Plan: Due to accidental fall at his home. Now status post ORIF of left tibia and posterior malleolar fractures, no repair needed for fibula Check 25-OH vit D level in am. Recommend pre and post-op telemetry monitoring given his severe pulmonary issues and history of second-degree heart block Respiratory status will need to be watched carefully. Post-op DVT prophylaxis will be essential given his prior h/o DVT. Orthopedics recommends Lovenox 40 mg SQ every 24 hours x6 weeks -Orthopedics recommends nonweightbearing to the left lower extremity -Continue pain control - tylenol prn, oxycodone, dilaudid prn. -PT/OT consults placed to see if needs rehab (2) COPD, severe: Plan: O2-dependent, 3 L NC continuously at home Cont all home inhalers. DuoNebs as needed and continue albuterol HFA scheduled 4 times daily Does have wheezing on exam today He is NOT on chronic prednisone therapy at home. Cont 3 times/week zithromax as previous. (3) Chronic respiratory failure with hypoxia: Plan: 2nd to severe, end-stage, O2 dependent COPD. no evidence of CHF or current pulmonary infection. (4) Chest pain: Plan: off/on for months and/or years. cardiology consult appreciated. chest pain felt to be noncardiac in nature - perhaps due to his COPD itself (bronchoconstriction, etc). appreciate cardiology evaluation. Echocardiogram with difficult to visualize LV EKG without ischemic changes. (5) H/O deep venous thrombosis: Plan: provoked, in the setting of his lung cancer and surgery for such (~2011). will be at higher risk of post-op VTE given his history. -Continue Lovenox 40 mg SQ once daily x6 weeks (6) Restless leg syndrome: Plan: Ferritin level sufficient at 64 cont pramipexole. (7) Anemia: Plan: Hemoglobin mildly low at 12.8, normocytic B12, folate, and ferritin all within normal limits Monitor as an outpatient (8) Obesity: Plan: BMI 35 Needs weight loss (9) Lung cancer: Plan: h/o - RUL - 2012, s/p RUL lobectomy (10) Idiopathic progressive polyneuropathy: Plan: Noted (11) Cardiomyopathy, nonischemic: Plan: several years ago his EF was 45-50%. this was thought perhaps 2nd to tachycardia on chronic basis. repeat echo this admission with poor visualization of the LV No clinical signs of volume overload Continue Toprol-XL 50 mg once daily (12) BPH (benign prostatic hyperplasia): Plan: cont flomax (13) Hepatitis C antibody positive in blood: Plan: HepC screen was positive HepC RNA for confirmation is pending (14) Mobitz I: Plan: Noted on telemetry postoperatively Discussed with cardiology-no need to hold metoprolol at this time Follow on telemetry Plan: DVT prophylaxis-Lovenox SQ, SCDs Disposition-continued stay overnight for monitoring of respiratory and cardiac status, PT/OT evaluations, may need rehab updated at bedside Admission and Anticipated Discharge Date Admission Date: April 13, 2021 Subjective Patient had surgical repair today of the fractures in his left leg and ankle. His pain is better controlled now with oxycodone and Tylenol. Denies any chest pain or shortness of breath over his usual. Typically at home he is on 2 to 3 L nasal cannula. He denies any nausea or vomiting and is eating. Telemetry with sinus tachycardia with rates in the 110s but improved down to the 90s after pain controlled. Also had some episodes of second-degree block Mobitz type I they were asymptomatic. Review of Systems Review of Systems: All systems reviewed & are unremarkable except as noted in HPI & below Physical Exam Constitutional: WD/WN, vitals as above Eyes: + anicteric sclerae Neck: trachea midline, no thyromegaly Respiratory: normal respiratory effort; no cough Auscultation: + wheezes (Diffusely); no crackles and no rhonchi Cardiovascular: RRR, no murmur, no edema Chest (Breasts): Chest: normal inspection of chest Gastrointestinal (Abdomen): normal bowel sounds, soft, nontender, no hepatosplenomegaly Musculoskeletal: Extremities: + extremities abnormal to inspection (Left leg in splint with Mj wrap, toes neurovascularly intact), no cyanosis and no clubbing Skin: no rashes, warm and dry Neurologic: moves all extremities and awake; no focal motor deficits Psychiatric: A+Ox3, euthymic affect Lymphatic: no lymphedema Results & Data Results & Data ([facility]) Vital Signs (Past 12 Hours) Vital Signs Temp Pulse Pulse Pulse Resp BP BP 04/14/21 17:22 98 H 20 93/57 L 04/14/21 16:22 36.5 C 104 H 20 101/68 04/14/21 15:22 109 H 104 H 20 103/61 04/14/21 14:52 36.2 C L 118 H 21 113/72 04/14/21 14:25 36.1 C L 107 H 21 101/58 L 04/14/21 14:15 105 H 20 119/61 04/14/21 14:05 105 H 26 H 101/53 L 04/14/21 13:55 105 H 19 100/86 04/14/21 13:45 100 H 18 119/76 04/14/21 13:38 36.2 C L 102 H 21 130/56 L 04/14/21 09:08 37.5 C 98 H 22 102/79 04/14/21 07:14 111 H 20 04/14/21 07:13 111 H 04/14/21 07:00 36.5 C 83 18 132/69 Pulse Ox 04/14/21 17:22 95 04/14/21 16:22 96 04/14/21 15:22 96 04/14/21 14:52 92 04/14/21 14:25 94 04/14/21 14:15 93 04/14/21 14:05 94 04/14/21 13:55 90 04/14/21 13:45 96 04/14/21 13:38 92 04/14/21 09:08 98 04/14/21 07:14 96 04/14/21 07:13 04/14/21 07:00 99 PG Care Time/CCT Total # of Minutes Spent Total Time Spent with Patient: Total time spent is greater than 50% in coordination of care (as documented) at patient's floor/unit and/or counseling patient: Coding Level of Care Code 74176 Subseq Hosp Care Lvl 3 Diagnoses Closed fracture of left fibula and tibia S82.202A; S82.402A Encounter type: initial encounter COPD, severe J44.9 Chronic respiratory failure with hypoxia J96.11 Chest pain R07.9 H/O deep venous thrombosis Z86.718 Restless leg syndrome G25.81 Anemia D64.9 Obesity E66.9 Lung cancer C34.90 Idiopathic progressive polyneuropathy G60.3 Cardiomyopathy, nonischemic I42.8 BPH (benign prostatic hyperplasia) N40.0 Hepatitis C antibody positive in blood R76.8 Mobitz I I44.1 (1) Closed fracture of left fibula and tibia Encounter type: initial encounter Qualified Code(s): S82.202A - Unspecified fracture of shaft of left tibia, initial encounter for closed fracture; S82.402A - Unspecified fracture of shaft of left fibula, initial encounter for closed fracture
--- NOTE | 2021-04-14 18:57 | XRay Report ---
XR tibia fibula LT 2V CLINICAL HISTORY: Post op Comparison: Comparison is made to tibial radiographs 04/13/2021 TECHNIQUE: 2 radiographic views of the left leg and left ankle were obtained. FINDINGS: Evaluation of fine bony detail is limited by overlying cast. Postoperative appearance of placement of intramedullary jarvis in the tibia is seen. There is soft tissue defect and surgical sugar. The tibia l fracture fragments are near-anatomic alignment. The fibular fracture is mildly displaced. The align ment is anatomic. Joint spaces are well-preserved. No soft tissue abnormality is seen. IMPRESSION: Satisfactory postoperative appearance of open reduction internal fixation of the previously noted fra ctures with the tibial fracture fragments in near-anatomic alignment. ACT 112: Negative or not required by law. Electronically signed by: Merlin Woody M.D. 04/14/2021 6:56 PM
[2021-04-14] MEDS: ceFAZolin 2000MG 2,000 MG/15 ML SYR IV SCH (19:23)
[2021-04-14] MEDS: PRAMIPEXOLE DIHYDROCHLO 0.5 MG TAB PO SCH (19:23)
[2021-04-14] MEDS: ASPIRIN 81 MG ECTAB PO SCH (19:23)
[2021-04-14] MEDS: DOCUSATE SODIUM 100 MG CAP PO SCH (19:23)
[2021-04-14] MEDS: SENNA 8.6 MG TAB PO SCH (19:24)
--- NOTE | 2021-04-14 19:59 | XRay Report ---
XR ankle LT 2V CLINICAL HISTORY: Tibial and fibular fracture Comparison: Comparison is made to tibial radiographs 04/13/2021 TECHNIQUE: 2 radiographic views of the left leg and left ankle were obtained. FINDINGS: Evaluation of fine bony detail is limited by overlying cast. Postoperative appearance of placement of intramedullary jarvis in the tibia is seen. There is soft tissue defect and surgical sugar. The tibial fracture fragments are near-anatomic alignment. The fibular fracture is mildly displaced. The alignment is anatomic. Joint spaces are well-preserved. No soft tissue abnormality is seen. IMPRESSION: Satisfactory postoperative appearance of open reduction internal fixation of the previously noted fractures with the tibial fracture fragments in near-anatomic alignment. ACT 112: Negative or not required by law. Electronically signed by: Merlin Woody M.D. 04/14/2021 7:58 PM
[2021-04-14] MEDS: oxyCODONE HCL IR 5 MG TAB (IMMEDIATE RELEASE) PO PRN (21:46)
--- NOTE | 2021-04-14 22:36 | Electrocardiogram Report ---
Test Reason : Blood Pressure : / mmHG Vent. Rate : 101 BPM Atrial Rate : 101 BPM P-R Int : 182 ms QRS Dur : 072 ms QT Int : 324 ms P-R-T Axes : 076 054 065 degrees QTc Int : 420 ms Sinus tachycardia Otherwise normal ECG When compared with ECG of 06-FEB-2019 14:27, No significant change was found Confirmed by Peña Hester ([id number]) on 04/14/2021 10:35:41 PM Referred By: REFERRED SELF Confirmed By:Peña Hester
[2021-04-15] MEDS: ceFAZolin 2000MG 2,000 MG/15 ML SYR IV SCH (03:32)
[2021-04-15 06:53] LABS: Hematocrit (blood only) 34.7 % (42-52); Hemoglobin 10.9 g/dL (14.0-18.0); Immature Granulocytes # (auto) 0.02 K/uL (0.00-0.02); Immature Granulocytes % (auto) 0.2 %; Lymphocytes # (auto) 0.69 K/uL (1.2-3.4); Lymphocytes % (auto) 6.3 %; Mean Corpuscular Hemoglobin 29.1 pg (25-34); Mean Corpuscular Hgb Conc 31.4 g/dL (32-36); Mean Corpuscular Volume 92.8 fL (80-100); Monocytes # (auto) 0.74 K/uL (0.11-0.59); Monocytes % (auto) 6.8 %; Neutrophils # (auto) 9.45 K/uL (1.4-6.5); Neutrophils % (auto) 86.7 %; Platelet Count 186 K/uL (130-400); RDW Coefficient of Variation 13.4 % (11.5-14.5); RDW Standard Deviation 45.4 fL (36.4-46.3); Red Blood Count 3.74 M/uL (4.7-6.1)
[2021-04-15 07:16] LABS: Albumin Globulin Ratio 1.3 (0.9-2); Albumin Level 3.5 gm/dl (3.4-5.0); Bilirubin,Total 0.6 mg/dl (0.2-1.0); Calcium 8.5 mg/dl (8.5-10.1); Creatinine Clr Calc Pharmacy 89.6 ml/min; Est GFR (African American) 84.9 ml/min; Est GFR (Non-African American) 73.3 ml/min; Globulin 2.8 gm/dl (2.5-4.0); Potassium 4.8 mmol/L (3.5-5.1); Total Protein 6.3 gm/dl (6.0-8.3)
[2021-04-15] MEDS: ALBUTEROL HFA 8 GM INHALER INH SCH ×2 (07:32→10:51)
[2021-04-15] MEDS: POLYETHYLENE (MIRALAX) 17 GM PACK PO SCH (08:56)
[2021-04-15] MEDS: ACETAMINOPHEN 500 MG TAB PO SCH ×3 (08:57→23:20)
[2021-04-15] MEDS: KETOCONAZOLE 2% CR 15 GM TUBE EXT SCH (08:57)
[2021-04-15] MEDS: TRIAMCINOLONE ACET 0.1% OINT 80 GM TUBE TOP SCH (08:57)
[2021-04-15] MEDS: DOCUSATE SODIUM 100 MG CAP PO SCH ×2 (08:57→20:47)
[2021-04-15] MEDS: MULTIVITAMIN TAB PO SCH ×2 (08:57)
[2021-04-15] MEDS: FERROUS SULFATE 325 MG TAB PO SCH ×3 (08:57→18:30)
[2021-04-15] MEDS: AZITHROMYCIN 250 MG TAB PO SCH (08:57)
[2021-04-15] MEDS: TAMSULOSIN HCL 0.4 MG CAP PO SCH (08:57)
[2021-04-15] MEDS: METOPROLOL SUCC 50MG EXT REL TAB PO SCH (08:57)
[2021-04-15] MEDS: UMECLIDINIUM BROMIDE 62.5MCG/BLISTER 7 PUFFS/INHALER INH SCH (08:58)
--- NOTE | 2021-04-15 09:08 | Orthopedic Progress Note ---
Date of Service April 15, 2021 Assessment & Plan (1) Closed fracture of left fibula and tibia: S/p p Intramedullary Nail Left Tibia; Percutaneous Fixation Left Ankle (DOS 04/14/2021; Dr. Mccurdy) -Making expected progress on POD 1; experiencing typical post operative pain for POD 1 -Pain control: scheduled tylenol, prn oxycodone/dilaudid. -DVT ppx: Start Lovenox today -PT/OT evaluation today. NWB LLE. -Post op abx ordered -Rest of care per Hospitalist team. Appreciate assistance. Disposition: Remain inpatient. Needs PT/OT evaluation for placement. May require inpatient rehab vs SNF. Care management consulted for placement. Subjective Doing okay today. Requiring IV pain medication. Some numbness in his left foot. Otherwise no concerns. VSS. Review of Systems All systems reviewed & are unremarkable except as noted in HPI & below. Physical Exam General: Pleasant 65 year old male resting in bed comfortably. Answering questions appropriately. No acute distress. LLE: Splint and dressing left in place for evaluation. Dressing C/D/I. No tenderness at the knee, calf, or ankle. Calf is soft. Can perform straight leg raise weakly. No pain w/ active flexion of knee. Can wiggle toes. Has objective sensory deficit in L foot. Brisk capillary refill. Results & Data Results & Data Laboratory Results Laboratory Tests 04/15/21 04/15/21 06:22 06:22 WBC 10.90 H Hgb 10.9 L Hct 34.7 L Plt Count 186 Sodium 134 L BUN 18 Creatinine 1.06 . Diagnostic Findings Post op Tib/fib and ankle XRs showing stable alignment of fracture. No hardware complications. . PG Care Time/CCT Total # of Minutes Spent Total Time Spent with Patient: Total time spent is greater than 50% in coordination of care (as documented) at patient's floor/unit and/or counseling patient: Coding Level of Care Code 82811 Post Operative Follow-Up Diagnoses Closed fracture of left fibula and tibia S82.202A; S82.402A Encounter type: initial encounter (1) Closed fracture of left fibula and tibia Encounter type: initial encounter Qualified Code(s): S82.202A - Unspecified fracture of shaft of left tibia, initial encounter for closed fracture; S82.402A - Unspecified fracture of shaft of left fibula, initial encounter for closed fracture
[2021-04-15] MEDS: CHOLECALCIFEROL 1,000 UNITS 25 MCG TAB PO SCH (10:40)
[2021-04-15] MEDS: ENOXAPARIN INJ 40 MG/0.4 ML SYR SQ SCH (10:40)
[2021-04-15 11:42] LABS: Hepatitis C Vira RNA (Log) PCR <1.18 NOT DETECTED Log IU/mL (NOT DETECTED); Hepatitis C Viral RNA by PCR <15 NOT DETECTED IU/mL (NOT DETECTED)
--- NOTE | 2021-04-15 14:05 | Hospitalist Progress Note ---
Date of Service April 15, 2021 Assessment & Plan (1) Closed fracture of left fibula and tibia: Plan: Due to accidental fall at his home. Likely with osteoporosis. VIt D level quite low at 13 Now status post ORIF of left tibia and posterior malleolar fractures, no repair needed for fibula DOing fairly well post-op, does have some wheezing and adding scheduled nebs Respiratory status will need to be watched carefully. Post-op DVT prophylaxis will be essential given his prior h/o DVT. Orthopedics recommends Lovenox 40 mg SQ every 24 hours x6 weeks -Orthopedics recommends nonweightbearing to the left lower extremity -Continue pain control - tylenol prn, oxycodone, dilaudid prn. -PT/OT consults recommend rehab (2) COPD, severe: Plan: O2-dependent, 3 L NC continuously at home Cont all home inhalers. DuoNebs changed to scheduled tid at his request like he takes at home Does have continued wheezing on exam today, using 4LNC He is NOT on chronic prednisone therapy at home. Cont 3 times/week zithromax as previous. (3) Chronic respiratory failure with hypoxia: Plan: 2nd to severe, end-stage, O2 dependent COPD. no evidence of CHF or current pulmonary infection. (4) Chest pain: Plan: off/on for months and/or years. cardiology consult appreciated. chest pain felt to be noncardiac in nature - perhaps due to his COPD itself (bronchoconstriction, etc). appreciate cardiology evaluation. Echocardiogram with difficult to visualize LV EKG without ischemic changes. (5) H/O deep venous thrombosis: Plan: provoked, in the setting of his lung cancer and surgery for such (~2011). will be at higher risk of post-op VTE given his history. -Continue Lovenox 40 mg SQ once daily x6 weeks (6) Restless leg syndrome: Plan: Ferritin level sufficient at 64 cont pramipexole. 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 this was thought perhaps 2nd to tachycardia on chronic basis. repeat echo this admission with poor visualization of the LV No clinical signs of volume overload Continue Toprol-XL 50 mg once daily (12) BPH (benign prostatic hyperplasia): Plan: cont flomax (13) Hepatitis C antibody positive in blood: Plan: HepC screen was positive HepC RNA for confirmation is negative (14) Mobitz I: Plan: Noted on telemetry postoperatively briefly, now resolved Discussed with cardiology-no need to hold metoprolol at this time ok to transfer off tele (15) Vitamin D deficiency: Plan: Vit D level quite low at 13 start Vit D3 2000 units daily Plan: DVT prophylaxis-Lovenox SQ, SCDs Disposition-awaiting rehab placement Admission and Anticipated Discharge Date Admission Date: April 13, 2021 Subjective Feeling a bit SOB and requesting he have scheduled nebs rather than the HFA. He uses nebs 2-3 times on most days at home. Denies CP. Is starting to have more pain in left leg. Tele with NSR rates 80-100s Review of Systems Review of Systems: All systems reviewed & are unremarkable except as noted in HPI & below Physical Exam Constitutional: WD/WN, vitals as above Eyes: + anicteric sclerae Neck: trachea midline, no thyromegaly Respiratory: + tachypneic (mild); no cough Auscultation: + diminished lung sounds (throughout) and + wheezes (Diffusely); no crackles and no rhonchi Cardiovascular: RRR, no murmur, no edema Chest (Breasts): Chest: normal inspection of chest Gastrointestinal (Abdomen): normal bowel sounds, soft, nontender, no he patosplenomegaly Musculoskeletal: Extremities: + extremities abnormal to inspection (Left leg in splint with Mj wrap, toes neurovascularly intact), no cyanosis and no clubbing Skin: no rashes, warm and dry Neurologic: moves all extremities and awake; no focal motor deficits Psychiatric: A+Ox3, euthymic affect Lymphatic: no lymphedema Results & Data Results & Data ([facility]) Vital Signs (Past 12 Hours) Vital Signs Temp Pulse Pulse Pulse Resp BP BP 04/15/21 12:55 04/15/21 11:03 36.8 C 98 H 22 118/74 04/15/21 10:52 103 H 22 04/15/21 07:41 36.3 C L 91 H 18 122/68 04/15/21 07:33 92 H 18 04/15/21 07:26 89 04/15/21 03:35 36.6 C 89 15 138/78 Pulse Ox 04/15/21 12:55 96 04/15/21 11:03 95 04/15/21 10:52 96 04/15/21 07:41 97 04/15/21 07:33 97 04/15/21 07:26 04/15/21 03:35 98 Laboratory Results 04/15/21 04/15/21 04/15/21 Range/Units 06:22 06:22 06:22 WBC 10.90 H (4.8-10.8) K/uL RBC 3.74 L (4.7-6.1) M/uL Hgb 10.9 L (14.0-18.0) g/dL Hct 34.7 L (42-52) % MCV 92.8 (80-100) fL MCH 29.1 (25-34) pg MCHC 31.4 L (32-36) g/dL RDW Std Deviation 45.4 (36.4-46.3) fL RDW Coeff of Dinesh 13.4 (11.5-14.5) % Plt Count 186 (130-400) K/uL MPV 10.0 (7.4-10.4) fL Immature Gran % (Auto) 0.2 % Neut % (Auto) 86.7 % Lymph % (Auto) 6.3 % [place] % (Auto) 6.8 % Eos % (Auto) 0.0 % Baso % (Auto) 0.0 % Neut # (Auto) 9.45 H (1.4-6.5) K/uL Lymph # (Auto) 0.69 L (1.2-3.4) K/uL [place] # (Auto) 0.74 H (0.11-0.59) K/uL Eos # (Auto) 0.00 (0-0.5) K/uL Baso # (Auto) 0.00 (0-0.2) K/uL Immature Gran # (Auto) 0.02 (0.00-0.02) K/uL Sodium 134 L (136-145) mmol/L Potassium 4.8 (3.5-5.1) mmol/L Chloride 95 L (98-107) mmol/L Carbon Dioxide 37 H (21-32) mmol/L Anion Gap 2 L (3-11) BUN 18 (6-23) mg/dl Creatinine 1.06 (0.6-1.4) mg/dl Est Cr Clr Drug Dosing 89.6 ml/min Est GFR ( Amer) 84.9 ml/min Est GFR (Non-Af Amer) 73.3 ml/min BUN/Creatinine Ratio 17.0 (10-20) Glucose 122 H (70-99(Fasting)) mg/dl Calcium 8.5 (8.5-10.1) mg/dl Total Bilirubin 0.6 (0.2-1.0) mg/dl AST 28 (13-39) U/L ALT 18 (7-52) U/L Alkaline Phosphatase 64 (34-104) U/L Total Protein 6.3 (6.0-8.3) gm/dl Albumin 3.5 (3.4-5.0) gm/dl Globulin 2.8 (2.5-4.0) gm/dl Albumin/Globulin Ratio 1.3 (0.9-2) 25-OH Vitamin D Total 13.0 L (30-100) ng/ml HCV RNA (PCR) IUs/ml (NOT DETECTED) IU/mL HCV RNA PCR log IUs/ml (NOT DETECTED) Log IU/mL 04/14/21 Range/Units 06:37 WBC (4.8-10.8) K/uL RBC (4.7-6.1) M/uL Hgb (14.0-18.0) g/dL Hct (42-52) % MCV (80-100) fL MCH (25-34) pg MCHC (32-36) g/dL RDW Std Deviation (36.4-46.3) fL RDW Coeff of Dinesh (11.5-14.5) % Plt Count (130-400) K/uL MPV (7.4-10.4) fL Immature Gran % (Auto) % Neut % (Auto) % Lymph % (Auto) % [place] % (Auto) % Eos % (Auto) % Baso % (Auto) % Neut # (Auto) (1.4-6.5) K/uL Lymph # (Auto) (1.2-3.4) K/uL [place] # (Auto) (0.11-0.59) K/uL Eos # (Auto) (0-0.5) K/uL Baso # (Auto) (0-0.2) K/uL Immature Gran # (Auto) (0.00-0.02) K/uL Sodium (136-145) mmol/L Potassium (3.5-5.1) mmol/L Chloride (98-107) mmol/L Carbon Dioxide (21-32) mmol/L Anion Gap (3-11) BUN (6-23) mg/dl Creatinine (0.6-1.4) mg/dl Est Cr Clr Drug Dosing ml/min Est GFR ( Amer) ml/min Est GFR (Non-Af Amer) ml/min BUN/Creatinine Ratio (10-20) Glucose (70-99(Fasting)) mg/dl Calcium (8.5-10.1) mg/dl Total Bilirubin (0.2-1.0) mg/dl AST (13-39) U/L ALT (7-52) U/L Alkaline Phosphatase (34-104) U/L Total Protein (6.0-8.3) gm/dl Albumin (3.4-5.0) gm/dl Globulin (2.5-4.0) gm/dl Albumin/Globulin Ratio (0.9-2) 25-OH Vitamin D Total (30-100) ng/ml HCV RNA (PCR) IUs/ml <15 NOT DETECTED (NOT DETECTED) IU/mL HCV RNA PCR log IUs/ml <1.18 NOT DETECTED (NOT DETECTED) Log IU/mL PG Care Time/CCT Total # of Minutes Spent Total Time Spent with Patient: Total time spent is greater than 50% in coordination of care (as documented) at patient's floor/unit and/or counseling patient: Coding Level of Care Code 48190 Subseq Hosp Care Lvl 2 Diagnoses Closed fracture of left fibula and tibia S82.202A; S82.402A Encounter type: initial encounter COPD, severe J44.9 Chronic respiratory failure with hypoxia J96.11 Chest pain R07.9 H/O deep venous thrombosis Z86.718 Restless leg syndrome G25.81 Anemia D64.9 Obesity E66.9 Lung cancer C34.90 Idiopathic progressive polyneuropathy G60.3 Cardiomyopathy, nonischemic I42.8 BPH (benign prostatic hyperplasia) N40.0 Hepatitis C antibody positive in blood R76.8 Mobitz I I44.1 Vitamin D deficiency E55.9 (1) Closed fracture of left fibula and tibia Encounter type: initial encounter Qualified Code(s): S82.202A - Unspecified fracture of shaft of left tibia, initial encounter for closed fracture; S82.402A - Unspecified fracture of shaft of left fibula, initial encounter for closed fracture
[2021-04-15] MEDS: oxyCODONE HCL IR 5 MG TAB (IMMEDIATE RELEASE) PO PRN ×2 (14:31→18:31)
[2021-04-15] MEDS: ALBUT/IPRATROP 3MG/0.5MG NEB 3 ML VIAL INH SCH ×2 (15:37→19:13)
[2021-04-15] MEDS: PRAMIPEXOLE DIHYDROCHLO 0.5 MG TAB PO SCH (20:46)
[2021-04-15] MEDS: ASPIRIN 81 MG ECTAB PO SCH (20:47)
[2021-04-15] MEDS: SENNA 8.6 MG TAB PO SCH (20:47)
[2021-04-16] MEDS: oxyCODONE HCL IR 5 MG TAB (IMMEDIATE RELEASE) PO PRN ×3 (01:38→23:31)
[2021-04-16 06:25] LABS: Basophils # (auto) 0.01 K/uL (0-0.2); Basophils % (auto) 0.1 %; Eosinophils # (auto) 0.15 K/uL (0-0.5); Eosinophils % (auto) 1.7 %; Hematocrit (blood only) 30.6 % (42-52); Hemoglobin 9.9 g/dL (14.0-18.0); Immature Granulocytes # (auto) 0.02 K/uL (0.00-0.02); Immature Granulocytes % (auto) 0.2 %; Lymphocytes # (auto) 1.27 K/uL (1.2-3.4); Lymphocytes % (auto) 14.3 %; Mean Corpuscular Hemoglobin 29.5 pg (25-34); Mean Corpuscular Hgb Conc 32.4 g/dL (32-36); Mean Corpuscular Volume 91.1 fL (80-100); Mean Platelet Volume 9.7 fL (7.4-10.4); Monocytes # (auto) 0.91 K/uL (0.11-0.59); Monocytes % (auto) 10.3 %; Neutrophils % (auto) 73.4 %; Platelet Count 179 K/uL (130-400); RDW Coefficient of Variation 13.5 % (11.5-14.5); Red Blood Count 3.36 M/uL (4.7-6.1); White Blood Count 8.86 K/uL (4.8-10.8)
[2021-04-16 06:39] LABS: BUN Creatinine Ratio 17.5 (10-20); Calcium 8.4 mg/dl (8.5-10.1); Creatinine Clr Calc Pharmacy 97.9 ml/min; Est GFR (African American) 94.6 ml/min; Est GFR (Non-African American) 81.6 ml/min; Potassium 4.2 mmol/L (3.5-5.1)
[2021-04-16] MEDS: ALBUT/IPRATROP 3MG/0.5MG NEB 3 ML VIAL INH SCH ×3 (07:26→19:20)
[2021-04-16] MEDS: KETOCONAZOLE 2% CR 15 GM TUBE EXT SCH (08:01)
[2021-04-16] MEDS: CHOLECALCIFEROL 1,000 UNITS 25 MCG TAB PO SCH (08:02)
[2021-04-16] MEDS: ACETAMINOPHEN 500 MG TAB PO SCH ×3 (08:02→23:31)
[2021-04-16] MEDS: MULTIVITAMIN TAB PO SCH ×2 (08:03)
[2021-04-16] MEDS: TAMSULOSIN HCL 0.4 MG CAP PO SCH (08:03)
[2021-04-16] MEDS: METOPROLOL SUCC 50MG EXT REL TAB PO SCH (08:03)
[2021-04-16] MEDS: DOCUSATE SODIUM 100 MG CAP PO SCH ×2 (08:03→20:39)
[2021-04-16] MEDS: FERROUS SULFATE 325 MG TAB PO SCH ×3 (08:04→16:10)
[2021-04-16] MEDS: POLYETHYLENE (MIRALAX) 17 GM PACK PO SCH (08:04)
[2021-04-16] MEDS: TRIAMCINOLONE ACET 0.1% OINT 80 GM TUBE TOP SCH (08:04)
[2021-04-16] MEDS: UMECLIDINIUM BROMIDE 62.5MCG/BLISTER 7 PUFFS/INHALER INH SCH (08:05)
--- NOTE | 2021-04-16 11:27 | Orthopedic Progress Note ---
Date of Service April 16, 2021 Assessment & Plan (1) Closed fracture of left fibula and tibia: S/p Intramedullary Nail Left Tibia; Percutaneous Fixation Left Ankle (DOS 04/14/2021; Dr. Mccurdy) -Making expected progress on POD 2 -Pain control: scheduled tylenol, prn oxycodone/dilaudid. -DVT ppx: Lovenox -Continue working with PT/OT. NWB LLE. -Rest of care per Hospitalist team. Appreciate assistance. Disposition: PT/OT recommending inpatient rehab. He is stable for discharge from Orthopedics perspective once a bed becomes available at an inpatient rehab facility or SNF. Will need follow up in clinic with Dr. Mccurdy for wound check and repeat XRs at 10-14 days post op. Also needs DVT ppx for 6 weeks post op, would prefer Eliquis 2.5 mg BID. Subjective Doing well today. Not requiring IV pain meds. VSS. Review of Systems All systems reviewed & are unremarkable except as noted in HPI & below. Physical Exam General: Pleasant 65 year old male sitting up on side of bed. Comfortable in no acute distress. LLE: Splint and dressing left in place for evaluation. Dressing C/D/I. No tenderness at the knee, calf, or ankle. Calf is soft.No pain w/ active flexion of knee. Can wiggle toes. Has objective sensory deficit in L foot. Brisk capillary refill. . Results & Data Results & Data Laboratory Results Reviewed and stable . Diagnostic Findings None Recent . PG Care Time/CCT Total # of Minutes Spent Total Time Spent with Patient: Total time spent is greater than 50% in coordination of care (as documented) at patient's floor/unit and/or counseling patient: Coding Level of Care Code 86143 Post Operative Follow-Up Diagnoses Closed fracture of left fibula and tibia S82.202A; S82.402A Encounter type: initial encounter (1) Closed fracture of left fibula and tibia Encounter type: initial encounter Qualified Code(s): S82.202A - Unspecified fracture of shaft of left tibia, initial encounter for closed fracture; S82.402A - Unspecified fracture of shaft of left fibula, initial encounter for closed fracture
[2021-04-16] MEDS: ENOXAPARIN INJ 40 MG/0.4 ML SYR SQ SCH (12:35)
--- NOTE | 2021-04-16 17:16 | Hospitalist Progress Note ---
Date of Service April 16, 2021 Assessment & Plan (1) Closed fracture of left fibula and tibia: Plan: Due to accidental fall at his home. Likely with osteoporosis. VIt D level quite low at 13 Now status post ORIF of left tibia and posterior malleolar fractures, no repair needed for fibula Doing well post-op, pain controlled Respiratory status will need to be watched carefully-doing better with scheduled DUonebs Post-op DVT prophylaxis will be essential given his prior h/o DVT. Orthopedics now recommends Eliquis 2.5mg po bid x6 weeks and patient prefers this also as he dislikes the injections -Orthopedics recommends nonweightbearing to the left lower extremity -Continue pain control - tylenol prn, oxycodone, dilaudid prn. -PT/OT consults recommend rehab, but having trouble finding placement, may consider home with home health, bedside commode, rolling walker or wheelchair or wheeled knee roller (2) COPD, severe: Plan: O2-dependent, 3 L NC continuously at home Cont all home inhalers. DuoNebs changed to scheduled tid at his request like he takes at home wheezing persists but is improved He is NOT on chronic prednisone therapy at home. Cont 3 times/week zithromax as previous. (3) Chronic respiratory failure with hypoxia: Plan: 2nd to severe, end-stage, O2 dependent COPD. no evidence of CHF or current pulmonary infection. (4) Chest pain: Plan: off/on for months and/or years. cardiology consult appreciated. chest pain felt to be noncardiac in nature - perhaps due to his COPD itself (bronchoconstriction, etc). appreciate cardiology evaluation. Echocardiogram with difficult to visualize LV EKG without ischemic changes. (5) H/O deep venous thrombosis: Plan: provoked, in the setting of his lung cancer and surgery for such (~2011). will be at higher risk of post-op VTE given his history. -change Lovenox to Eliquis 2.5mg po bid x6 weeks-start ELiquis this evening (6) Restless leg syndrome: Plan: Ferritin level sufficient at 64 cont pramipexole. 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 this was thought perhaps 2nd to tachycardia on chronic basis. repeat echo this admission with poor visualization of the LV No clinical signs of volume overload Continue Toprol-XL 50 mg once daily (12) BPH (benign prostatic hyperplasia): Plan: cont flomax no issues with urinary retention (13) Hepatitis C antibody positive in blood: Plan: HepC screen was positive HepC RNA for confirmation is negative discussed results with patient (14) Lucila I: Plan: Noted on telemetry postoperatively briefly, now resolved Discussed with cardiology-no need to hold metoprolol at this time have since transferred off tele (15) Vitamin D deficiency: Plan: Vit D level quite low at 13 started Vit D3 2000 units daily Plan: DVT prophylaxis-Kemar Hawkins Disposition-awaiting rehab placement vs possible home with HH if marketing ambassador't find SNF Admission and Anticipated Discharge Date Admission Date: April 13, 2021 Subjective Pt reports pain is well controlled. SOB is improved now with scheduled nebs. Worked with PT today and walked total of about 10 feet. reports he typically doesn't walk much more than this at baseline due to his COPD/SOB. They are willing to go home with home health, rolling walker or wheelchair, and bedside commode if can't get to SNF in timely fashion He is moving his bowels Review of Systems Review of Systems: All systems reviewed & are unremarkable except as noted in HPI & below Physical Exam Constitutional: WD/WN, vitals as above Eyes: + anicteric sclerae Neck: trachea midline, no thyromegaly Respiratory: + tachypneic (mild); no cough Auscultation: + diminished lung sounds (throughout) and + wheezes (Diffusely but improved from yesterday); no crackles and no rhonchi Cardiovascular: RRR, no murmur, no edema Chest (Breasts): Chest: normal inspection of chest Gastrointestinal (Abdomen): normal bowel sounds, soft, nontender, no hepatosplenomegaly Musculoskeletal: Extremities: + extremities abnormal to inspection (Left leg in splint with Mj wrap, toes neurovascularly intact), no cyanosis and no clubbing Skin: no rashes, warm and dry Neurologic: moves all extremities and awake; no focal motor deficits Psychiatric: A+Ox3, euthymic affect Lymphatic: no lymphedema Results & Data Results & Data ([facility]) Vital Signs (Past 12 Hours) Vital Signs Temp Pulse Resp BP Pulse Ox 04/16/21 15:44 37.2 C 101 H 18 127/70 95 04/16/21 12:40 100 H 18 96 04/16/21 08:11 36.7 C 97 H 16 125/70 95 04/16/21 07:26 95 H 18 95 Laboratory Results 04/16/21 04/16/21 Range/Units 06:09 06:09 WBC 8.86 (4.8-10.8) K/uL RBC 3.36 L (4.7-6.1) M/uL Hgb 9.9 L (14.0-18.0) g/dL Hct 30.6 L (42-52) % MCV 91.1 (80-100) fL MCH 29.5 (25-34) pg MCHC 32.4 (32-36) g/dL RDW Std Deviation 45.0 (36.4-46.3) fL RDW Coeff of Dinesh 13.5 (11.5-14.5) % Plt Count 179 (130-400) K/uL MPV 9.7 (7.4-10.4) fL Immature Gran % (Auto) 0.2 % Neut % (Auto) 73.4 % Lymph % (Auto) 14.3 % [place] % (Auto) 10.3 % Eos % (Auto) 1.7 % Baso % (Auto) 0.1 % Neut # (Auto) 6.50 (1.4-6.5) K/uL Lymph # (Auto) 1.27 (1.2-3.4) K/uL [place] # (Auto) 0.91 H (0.11-0.59) K/uL Eos # (Auto) 0.15 (0-0.5) K/uL Baso # (Auto) 0.01 (0-0.2) K/uL Immature Gran # (Auto) 0.02 (0.00-0.02) K/uL Sodium 134 L (136-145) mmol/L Potassium 4.2 (3.5-5.1) mmol/L Chloride 94 L (98-107) mmol/L Carbon Dioxide 36 H (21-32) mmol/L Anion Gap 4 (3-11) BUN 17 (6-23) mg/dl Creatinine 0.97 (0.6-1.4) mg/dl Est Cr Clr Drug Dosing 97.9 ml/min Est GFR ( Amer) 94.6 ml/min Est GFR (Non-Af Amer) 81.6 ml/min BUN/Creatinine Ratio 17.5 (10-20) Glucose 105 H (70-99(Fasting)) mg/dl Calcium 8.4 L (8.5-10.1) mg/dl PG Care Time/CCT Total # of Minutes Spent Total Time Spent with Patient: Total time spent is greater than 50% in coordination of care (as documented) at patient's floor/unit and/or counseling patient: Coding Level of Care Code 38585 Subseq Hosp Care Lvl 2 Diagnoses Closed fracture of left fibula and tibia S82.A; S82.402A Encounter type: initial encounter COPD, severe J44.9 Chronic respiratory failure with hypoxia J96.11 Chest pain R07.9 H/O deep venous thrombosis Z86.718 Restless leg syndrome G25.81 Anemia D64.9 Obesity E66.9 Lung cancer C34.90 Idiopathic progressive polyneuropathy G60.3 Cardiomyopathy, nonischemic I42.8 BPH (benign prostatic hyperplasia) N40.0 Hepatitis C antibody positive in blood R76.8 Mobitz I I44.1 Vitamin D deficiency E55.9 (1) Closed fracture of left fibula and tibia Encounter type: initial encounter Qualified Code(s): S82.A - Unspecified fracture of shaft of left tibia, initial encounter for closed fracture; S82.402A - Unspecified fracture of shaft of left fibula, initial encounter for closed fracture
[2021-04-16] MEDS: ASPIRIN 81 MG ECTAB PO SCH (20:32)
[2021-04-16] MEDS: SENNA 8.6 MG TAB PO SCH (20:33)
[2021-04-16] MEDS: PRAMIPEXOLE DIHYDROCHLO 0.5 MG TAB PO SCH (20:33)
[2021-04-16] MEDS: APIXABAN 2.5 MG TAB PO SCH (20:39)
[2021-04-17] MEDS: oxyCODONE HCL IR 5 MG TAB (IMMEDIATE RELEASE) PO PRN ×2 (06:29→15:41)
[2021-04-17] MEDS: ALBUT/IPRATROP 3MG/0.5MG NEB 3 ML VIAL INH SCH ×3 (07:38→19:44)
[2021-04-17] MEDS: AZITHROMYCIN 250 MG TAB PO SCH (08:09)
[2021-04-17] MEDS: TRIAMCINOLONE ACET 0.1% OINT 80 GM TUBE TOP SCH (08:09)
[2021-04-17] MEDS: TAMSULOSIN HCL 0.4 MG CAP PO SCH (08:09)
[2021-04-17] MEDS: APIXABAN 2.5 MG TAB PO SCH ×2 (08:09→20:55)
[2021-04-17] MEDS: METOPROLOL SUCC 50MG EXT REL TAB PO SCH (08:09)
[2021-04-17] MEDS: UMECLIDINIUM BROMIDE 62.5MCG/BLISTER 7 PUFFS/INHALER INH SCH (08:09)
[2021-04-17] MEDS: MULTIVITAMIN TAB PO SCH ×2 (08:09)
[2021-04-17] MEDS: FERROUS SULFATE 325 MG TAB PO SCH ×3 (08:09→17:35)
[2021-04-17] MEDS: CHOLECALCIFEROL 1,000 UNITS 25 MCG TAB PO SCH (08:09)
[2021-04-17] MEDS: KETOCONAZOLE 2% CR 15 GM TUBE EXT SCH (08:09)
[2021-04-17] MEDS: POLYETHYLENE (MIRALAX) 17 GM PACK PO SCH (08:10)
[2021-04-17] MEDS: DOCUSATE SODIUM 100 MG CAP PO SCH ×2 (08:12→20:52)
[2021-04-17] MEDS: ACETAMINOPHEN 500 MG TAB PO SCH ×2 (08:12→15:41)
--- NOTE | 2021-04-17 12:52 | Orthopedic Progress Note ---
Date of Service April 17, 2021 Assessment & Plan (1) Closed fracture of left fibula and tibia: S/p Intramedullary Nail Left Tibia; Percutaneous Fixation Left Ankle (DOS 04/14/2021; Dr. Mccurdy) -Making expected progress on POD 3 -Pain control: scheduled tylenol, prn oxycodone, can d/c dilaudid. -DVT ppx: Eliquis 2.5 mg BID x 6 weeks. -Continue working with PT/OT. NWB LLE. -Rest of care per Hospitalist team. Appreciate assistance. Disposition: PT/OT recommending inpatient rehab. He is stable for discharge from [facility] once a bed becomes available at an inpatient rehab facility or SNF. Will need follow up in clinic with Dr. Mccurdy for wound check and repeat XRs at 10-14 days post op. Also needs DVT ppx for 6 weeks post op.. Subjective Pain continues to improve. Numbness improving as well. No concerns today. Review of Systems All systems reviewed & are unremarkable except as noted in HPI & below. Physical Exam General: Pleasant 65 year old male resting in bed. Comfortable in no acute distress. LLE: Splint and dressing left in place for evaluation. Dressing C/D/I. No tenderness at the knee, calf, or ankle. Calf is soft. Can straight leg raise against gravity. No pain w/ active flexion of knee. Wiggles toes. Has objective sensory deficit in L foot, improved today. Brisk capillary refill. . Results & Data Results & Data Laboratory Results None recent . Diagnostic Findings None recent . PG Care Time/CCT Total # of Minutes Spent Total Time Spent with Patient: Total time spent is greater than 50% in coordination of care (as documented) at patient's floor/unit and/or counseling patient: Coding Level of Care Code 03357 Post Operative Follow-Up Diagnoses Closed fracture of left fibula and tibia S82.202A; S82.402A Encounter type: initial encounter (1) Closed fracture of left fibula and tibia Encounter type: initial encounter Qualified Code(s): S82.202A - Unspecified fracture of shaft of left tibia, initial encounter for closed fracture; S82.402A - Unspecified fracture of shaft of left fibula, initial encounter for closed fracture
[2021-04-17] MEDS: PRAMIPEXOLE DIHYDROCHLO 0.5 MG TAB PO SCH (20:53)
[2021-04-17] MEDS: SENNA 8.6 MG TAB PO SCH (20:55)
[2021-04-17] MEDS: ASPIRIN 81 MG ECTAB PO SCH (20:56)
--- NOTE | 2021-04-17 23:30 | Hospitalist Progress Note ---
Date of Service April 17, 2021 Assessment & Plan (1) Closed fracture of left fibula and tibia: Plan: Due to accidental fall at his home. Likely with osteoporosis. VIt D level quite low at 13 Now status post ORIF of left tibia and posterior malleolar fractures, no repair needed for fibula Doing well post-op, pain controlled Respiratory status at his baseline with chronic wheezing, on 3 L nasal cannula Post-op DVT prophylaxis will be essential given his prior h/o DVT. Orthopedics now recommends Eliquis 2.5mg po bid x6 weeks -Orthopedics recommends nonweightbearing to the left lower extremity -Continue pain control - tylenol prn, oxycodone-requests a prescription for oxycodone on discharge -PT/OT consults recommend rehab, but having trouble finding placement, now would like to go home with home health, rolling walker and wheelchair Late on the afternoon of Tuesday, case management was still trying to find a home health that would accept him and also he needed transportation arranged-neither of these things were accomplished by the end of the business day on Tuesday-plan to hopefully discharged home with home health on Tuesday (2) COPD, severe: Plan: O2-dependent, 3 L NC continuously at home Cont all home inhalers. DuoNebs scheduled tid at his request like he takes at home wheezing persists but is improved He is NOT on chronic prednisone therapy at home. Cont 3 times/week zithromax as previous. (3) Chronic respiratory failure with hypoxia: Plan: 2nd to severe, end-stage, O2 dependent COPD. no evidence of CHF or current pulmonary infection. (4) Chest pain: Plan: off/on for months and/or years. cardiology consult appreciated. chest pain felt to be noncardiac in nature - perhaps due to his COPD itself (bronchoconstriction, etc). appreciate cardiology evaluation. Echocardiogram with difficult to visualize LV EKG without ischemic changes. (5) H/O deep venous thrombosis: Plan: provoked, in the setting of his lung cancer and surgery for such (~2011). will be at higher risk of post-op VTE given his history. -started Eliquis 2.5mg po bid x6 weeks-nurse navigator Lyman checked this and it will be $47 per month but he got a cost savings card for the first month free (6) Restless leg syndrome: Plan: Ferritin level sufficient at 64 cont pramipexole. (7) Anemia: Plan: Acute blood loss anemia from fracture, surgery Hemoglobin slight drop to 10.9, normocytic B12, folate, and ferritin all within normal limits (8) Obesity: Plan: BMI 35 Needs weight loss (9) Lung cancer: Plan: h/o - RUL - 2012, s/p RUL lobectomy (10) Idiopathic progressive polyneuropathy: Plan: Noted (11) Cardiomyopathy, nonischemic: Plan: several years ago his EF was 45-50%. this was thought perhaps 2nd to tachycardia on chronic basis. repeat echo this admission with poor visualization of the LV No clinical signs of volume overload Continue Toprol-XL 50 mg once daily (12) BPH (benign prostatic hyperplasia): Plan: cont flomax no issues with urinary retention (13) Hepatitis C antibody positive in blood: Plan: HepC screen was positive HepC RNA for confirmation is negative discussed results with patient (14) Lucila I: Plan: Noted on telemetry postoperatively briefly, now resolved Discussed with cardiology-no need to hold metoprolol at this time have since transferred off tele (15) Vitamin D deficiency: Plan: Vit D level quite low at 13 started Vit D3 2000 units daily Plan: DVT prophylaxis-BRYCE Coxs Disposition-discharge to home with home health once home health agency accepts him, hopefully for Tuesday. He will need transportation arranged Admission and Anticipated Discharge Date Admission Date: April 13, 2021 Subjective Patient is having some pain in the leg and is requesting an oxycodone. Otherwise he is moving his bowels, making urine. Feels his shortness of breath is at its baseline. No other acute issues. Review of Systems Review of Systems: All systems reviewed & are unremarkable except as noted in HPI & below Physical Exam Constitutional: WD/WN, vitals as above Eyes: + anicteric sclerae Neck: trachea midline, no thyromegaly Respiratory: + tachypneic (mild); no cough Auscultation: + diminished lung sounds (throughout) and + wheezes (Diffusely but improved from yesterday); no crackles and no rhonchi Cardiovascular: RRR, no murmur, no edema Chest (Breasts): Chest: normal inspection of chest Gastrointestinal (Abdomen): normal bowel sounds, soft, nontender, no hepatosplenomegaly Musculoskeletal: Extremities: + extremities abnormal to inspection (Left leg in splint with Mj wrap, toes neurovascularly intact), no cyanosis and no clubbing Skin: no rashes, warm and dry Neurologic: moves all extremities and awake; no focal motor deficits Psychiatric: A+Ox3, euthymic affect Lymphatic: no lymphedema Results & Data Results & Data ([facility]) Vital Signs (Past 12 Hours) Vital Signs Temp Pulse Pulse Resp BP Pulse Ox 04/17/21 21:44 36.8 C 97 H 18 103/67 96 04/17/21 19:45 95 H 26 H 94 04/17/21 15:49 36.9 C 99 H 22 111/70 98 04/17/21 12:16 88 20 99 PG Care Time/CCT Total # of Minutes Spent Total Time Spent with Patient: Total time spent is greater than 50% in coordination of care (as documented) at patient's floor/unit and/or counseling patient: Coding Level of Care Code 04714 Subseq Hosp Care Lvl 2 Diagnoses Closed fracture of left fibula and tibia S82.A; S82.402A Encounter type: initial encounter COPD, severe J44.9 Chronic respiratory failure with hypoxia J96.11 Chest pain R07.9 H/O deep venous thrombosis Z86.718 Restless leg syndrome G25.81 Anemia D64.9 Obesity E66.9 Lung cancer C34.90 Idiopathic progressive polyneuropathy G60.3 Cardiomyopathy, nonischemic I42.8 BPH (benign prostatic hyperplasia) N40.0 Hepatitis C antibody positive in blood R76.8 Mobitz I I44.1 Vitamin D deficiency E55.9 (1) Closed fracture of left fibula and tibia Encounter type: initial encounter Qualified Code(s): S82.A - Unspecified fracture of shaft of left tibia, initial encounter for closed fracture; S82.402A - Unspecified fracture of shaft of left fibula, initial encounter for closed fracture
[2021-04-18] MEDS: ACETAMINOPHEN 500 MG TAB PO SCH ×2 (00:02→09:06)
[2021-04-18] MEDS: oxyCODONE HCL IR 5 MG TAB (IMMEDIATE RELEASE) PO PRN ×2 (03:48→09:06)
[2021-04-18] MEDS: ALBUT/IPRATROP 3MG/0.5MG NEB 3 ML VIAL INH SCH ×2 (07:13→13:34)
[2021-04-18] MEDS: APIXABAN 2.5 MG TAB PO SCH (09:07)
[2021-04-18] MEDS: METOPROLOL SUCC 50MG EXT REL TAB PO SCH (09:08)
[2021-04-18] MEDS: KETOCONAZOLE 2% CR 15 GM TUBE EXT SCH (09:08)
[2021-04-18] MEDS: FERROUS SULFATE 325 MG TAB PO SCH ×2 (09:08→13:00)
[2021-04-18] MEDS: CHOLECALCIFEROL 1,000 UNITS 25 MCG TAB PO SCH (09:08)
[2021-04-18] MEDS: MULTIVITAMIN TAB PO SCH ×2 (09:08→09:13)
[2021-04-18] MEDS: TAMSULOSIN HCL 0.4 MG CAP PO SCH (09:10)
[2021-04-18] MEDS: TRIAMCINOLONE ACET 0.1% OINT 80 GM TUBE TOP SCH (09:10)
[2021-04-18] MEDS: UMECLIDINIUM BROMIDE 62.5MCG/BLISTER 7 PUFFS/INHALER INH SCH (09:12)
[2021-04-18] MEDS: DOCUSATE SODIUM 100 MG CAP PO SCH (09:22)
[2021-04-18] MEDS: POLYETHYLENE (MIRALAX) 17 GM PACK PO SCH (09:22)
[2021-04-18] MEDS ORDERED: ALBUTEROL 0.083% NEBU SOLN 3 ML VIAL NEB STA (10:21)
--- NOTE | 2021-04-18 17:37 | Discharge Summary ---
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 He was coming out of his house and slipped on ice next to his vehicle. Thinks he hit the left leg on the car. He had immediate pain in the left leg. Could not get up - 911 was called by his . Brought to [facility] - x-rays showed left tib-fib fractures, both displaced. His tib-fib fracture was splinted, and orthopedics was contacted by phone. They advised hospital admission for potential surgery of the fractures. Patient states he has baseline dyspnea on exertion with walking short distances. Gets short of breath with walking only 10-20 feet. Has been getting chest pain episodes - at rest and with activity - up to a year in time, perhaps even longer. Episodes last minutes to hours. He describes it as a tightness - like "an elephant sitting on my chest." [facility] pulmonary was getting ready to refer him to cardiology for evaluation of these pains. He has had negative stress tests in the past. No prior h/o CAD. With respect to his past DVT - he took coumadin for a period of time and ultimately came off of such. he has had no recurrent VTE since that time. Principal Diagnosis 1. Distal tib-fib fracture left lower extremitys/p ORIF 2. Fall resulting in fracture Discharge Exam General: Resting comfortably in his hospital bed. Audible wheezes at bedside that improve following neb treatment. [NAD.] HEENT: [Head is AT/NC][buccal mucosa is moist and pink] Neck:[No JVD.][Negative hepatojugular reflex] Cardiac: RRR without M/G/R Lungs: Diminished breath sounds throughout with audible wheezes at bedside. Mid to end expiratory wheezes scattered throughout. He is improved following neb treatment Abdomen: Normoactive X4. Soft and nontender in all quadrants. Extremities: Splint to left lower extremities. Dorsalis pedis pulse intact and bounding. Cap refill +2. Neuro: A&O X4 cranial nerves II through XII Cranial Nerves are grossly intact no focal neuro deficits Skin: No obvious skin lesions or rashes Psych: Appropriate affect pleasant and cooperative Discharge Data Allergies Allergy/AdvReac Type Severity Reaction Status Date / Time bee venom protein (honey bee) Allergy Unknown LOCAL Verified 04/01/21 08:48 SWELLING diltiazem Allergy Unknown REDNESS Verified 04/01/21 08:48 "MADE ME LOOK LIKE A STRAWBERRY" Consultations 04/13/21 13:32 Consult Orthopedic Surgery Stat 04/13/21 13:51 ED Decision to Admit Stat 04/13/21 18:47 Consult Cardiology Routine Procedures Performed Operation Date: 04/14/21 09:45 Actual Procedures p Intramedullary Nail Left Tibia; Percutaneous Fixation Left Ankle(Left) - Brayden Mccurdy MD Ordered Studies 04/14/21 09:45 FL tibia/fibula LT 2V Routine Hospital Course (1) Closed fracture of left fibula and tibia: Due to accidental fall at his home. Likely with osteoporosis. VIt D level quite low at 13--continue oral supplementation Now status post ORIF of left tibia and posterior malleolar fractures, no repair needed for fibula Patient is to be nonweightbearing to left lower extremity Has been seen by PT/OT and he is adamant that he is to be discharged to home. PT/OT had been recommending rehab but has been difficult to find a facility. Patient wanting to go home he is able to maneuver despite the nonweightbearing restrictions Post-op DVT prophylaxis will be essential given his prior h/o DVT. Orthopedics now recommends Eliquis 2.5mg po bid x6 weeks -Oxycodone to continue to pain Follow-up with Ortho: 2 weeks Patient is medically hemodynamically stable for discharge to home with home PT/OT/visiting nurses (2) COPD, severe: Patient with end-stage COPD. Has audible wheezes when seen today of menses which has also been documented by prior provider and is baseline per patient O2-dependent, 3 L NC continuously at home Cont all home inhalers. DuoNebs scheduled tid at his request like he takes at home wheezing persists but is improved following neb treatment He is NOT on chronic prednisone therapy at home. Cont 3 times/week zithromax as previous. (3) Chronic respiratory failure with hypoxia: 2nd to severe, end-stage, O2 dependent COPD. no evidence of CHF or current pulmonary infection. (4) Chest pain: off/on for months and/or years. cardiology consult appreciated. chest pain felt to be noncardiac in nature - perhaps due to his COPD itself (bronchoconstriction, etc). appreciate cardiology evaluation. Echocardiogram with difficult to visualize LV EKG without ischemic changes. (5) H/O deep venous thrombosis: provoked, in the setting of his lung cancer and surgery for such (~2011). will be at higher risk of post-op VTE given his history. -started Eliquis 2.5mg po bid x6 weeks-nurse navigator Lyman checked this and it will be $47 per month but he got a cost savings card for the first month free (6) Restless leg syndrome: Ferritin level sufficient at 64 cont pramipexole. (7) Anemia: Acute blood loss anemia from fracture, surgery Hemoglobin slight drop to 10.9, normocytic B12, folate, and ferritin all within normal limits (8) Obesity: BMI 35 Needs weight loss (9) Lung cancer: h/o - RUL - 2011, s/p RUL lobectomy (10) Idiopathic progressive polyneuropathy: Noted (11) Cardiomyopathy, nonischemic: several years ago his EF was 45-50%. this was thought perhaps 2nd to tachycardia on chronic basis. repeat echo this admission with poor visualization of the LV No clinical signs of volume overload Continue Toprol-XL 50 mg once daily (12) BPH (benign prostatic hyperplasia): cont flomax no issues with urinary retention (13) Hepatitis C antibody positive in blood: HepC screen was positive HepC RNA for confirmation is negative Prior provider discussed results with patient (14) Lucila I: Noted on telemetry postoperatively briefly, now resolved Discussed with cardiology-no need to hold metoprolol at this time have since transferred off tele (15) Vitamin D deficiency: Vit D level quite low at 13 started Vit D3 2000 units daily D/C to home with home health services Plan of care discussed with Dr. Wright Total Time Total Time Spent Total Time Spent (In Minutes): 40 minutes including time spent with patient, coordination of care, preparation of documentation Discharge Plan Discharge Items Patient Disposition: Home - Home Health Services Reason For Visit: LEFT TIB-FIB FRACTURE Discharge Diagnosis: 1. Left distal tib/fib fracture 2. s/p ORIF (repair) of the fracture Activity: As commented below Activity Comment: Non-weight bearing status to Left Lower Extremity Non-emergency contact: Primary Care Provider and Surgeon Call non-emergency contact if: you have any medication questions Follow-up/Referrals: Aggie Mccollum MD [Primary Care Provider] - Diet: Regular Addtl Attending Provider Instructions: Diet: as tolerated Activity: NONWEIGHT BEARING TO THE LEFT LOWER EXTREMITY until cleared to do so by Ortho Recommendations: - do not put weight on the left leg until cleared to do so by Ortho - you have been placed on Eliquis (blood thinner) to be taken twice a day to prevent blood clots (x30 days) - OxyContin has been prescribed for pain. This can be habit forming so take only as needed. Will cause drowsiness - take iron supplementation x30 days (as you had a mild drop in your blood count). Iron is a building block of blood - Pain medication and Iron can be constipating. A bowel regimen has been prescribed to help prevent this - follow up with Orthopedics: 2 weeks - you have been started on Vitamin D supplementation for bone support - follow up with PCP: 7-10 days - return to the ED for new or worsening symptoms Pending Studies at Discharge: No Stand-Alone Forms: [facility], Opioid Pain Management, Smoking Cessation Medications and DC Order Prescriptions: New polyethylene glycol 3350 [Miralax] 17 gram Powder In Packet 17 g PO DAILY Qty: 30 RF: 0 docusate sodium 100 mg Capsule 100 mg PO BID Qty: 60 RF: 0 ferrous sulfate 325 mg (65 mg iron) Tablet,Delayed Release (Dr/Ec) 325 mg PO DAILY Qty: 30 RF: 0 oxycodone 5 mg Tablet 5 mg PO Q4H PRN (Reason: pain) Qty: 36 RF: 0 cholecalciferol (vitamin D3) 25 mcg (1,000 unit) Capsule 2,000 unit PO QAM 60 Days RF: 0 Eliquis 2.5 mg Tablet 2.5 mg PO BID Qty: 60 RF: 0 Continued tamsulosin 0.4 mg capsule 0.4 mg PO DAILY Qty: 90 RF: 1 naproxen 500 mg tablet 500 mg PO BID PRN (Reason: pain) Qty: 30 RF: 1 albuterol sulfate 90 mcg/actuation HFA aerosol inhaler 2 puff INH Q4H PRN (Reason: shortness of breath or wheezing) Qty: 3 RF: 1 metoprolol succinate [Toprol XL] 50 mg tablet extended release 24 hr 50 mg PO QAM Qty: 90 RF: 1 ipratropium-albuterol 0.5 mg-3 mg(2.5 mg base)/3 mL solution for nebulization 3 ml INH Q4H PRN (Reason: shortness of breath or wheezing) Qty: 90 RF: 1 Trelegy Ellipta 100-62.5-25 mcg blister with device 1 inh INH Q24H Qty: 180 RF: 1 ciclesonide [Alvesco] 160 mcg/actuation HFA aerosol inhaler 2 puff inhalation DAILY RF: 0 ketoconazole 2 % cream 1 applic topical DAILY Qty: 15 RF: 0 triamcinolone acetonide 0.025 % ointment 1 applic topical DAILY RF: 0 hydrocortisone [Anti-Itch (HC)] 1 % cream 1 applic topical BID PRN (Reason: Itching) RF: 0 multivitamin Tablet 1 tab PO QAM RF: 0 aspirin [Aspir-Low] 81 mg Tablet,Delayed Release (Dr/Ec) 81 mg PO HS RF: 0 pramipexole 1 mg tablet 3 mg PO HS RF: 0 azithromycin 250 mg tablet 250 mg PO DIRECTED RF: 0 Discharge Orders: Discharge Order (Routine); Ordered 04/18/21 Ordered By: Lea Waters/Other Patient Handouts: Eliquis Oral Tablet 2.5 mg, Understanding Hepatitis C (HCV), Diagnosing Hepatitis C, Hepatitis C: Know the Facts Admission Data Admit Date/Time: 04/13/21 14:41 Attending Provider: Ari Wright Admit Provider: Tevin Carlin Primary Care Provider: Aggie Mccollum Other Providers: [facility] ; [place] ; Rich Yeh ; Tevin Carlin ; Dima Holloway ; [facility] Other Interventions: Discharge Summary Assessment (RN) Last Done: 04/18/21 16:09 Supervising Physician Co-Signing Physician Notes I supervised Lea Dominguez PA-C on the care of this patient. I interviewed and examined the patient independently of her. The plan is as written in her note except for any following changes/exceptions: None Doing well today. Pain under control. Ready for discharge per ortho once home health and transport home are arranged. Coding Level of Care Code D/C DAY MANAGEMENT >30 MINS Diagnoses Closed fracture of left fibula and tibia S82.202A; S82.402A Encounter type: initial encounter COPD, severe J44.9 Chronic respiratory failure with hypoxia J96.11 Chest pain R07.9 H/O deep venous thrombosis Z86.718 Restless leg syndrome G25.81 Anemia D64.9 Obesity E66.9 Lung cancer C34.90 Idiopathic progressive polyneuropathy G60.3 Cardiomyopathy, nonischemic I42.8 BPH (benign prostatic hyperplasia) N40.0 Hepatitis C antibody positive in blood R76.8 Mobitz I I44.1 Vitamin D deficiency E55.9
--- NOTE | 2021-04-22 07:13 | Coding Query ---
CODING QUERY To promote full compliance with coding requirements relating to patient care, provider participation is requested in all cases of survey data technician uncertainty. Please assist us with the question(s) below: Coding Question(s): The Operative Report documents regarding posterior malleolar fracture, and, "I appreciated a vertical disruption of the tibial plafond from a vertically oriented posterior malleolar fracture. We moved to complete fixation of the nail and then returned to address the posterior malleolus fracture". Please specify below, in your clinical opinion, regarding the malleolar fracture. ( ) likely complication of fracture following insertion of IM nail during the procedure (x) not a complication and the malleolar fracture was present on admission ( ) Other: Please Specify Physician's Response(s): Thank you Karla Wilde Principal Diagnosis: "that condition established after study, to be chiefly responsible for occasioning the admission of the patient to the hospital for care." Co-Existing Principal Diagnosis: "when two or more diagnoses equally meet the criteria for principal diagnosis as determined by the circumstances of admission, diagnostic work up, and/or therapy provided, and the Alphabetic Index, Tabular List, or another coding guideline does not provide sequencing direction, any one of the diagnoses may be sequenced first." "When the physician has documented what appears to be a current diagnosis in the body of the record, but has not included the diagnosis in the final diagnostic statement, the physician should be asked whether the diagnosis should be added." (Source Coding Clinic 2 QTR90. p3-4) [facility]
== END 2021-04-18 17:11 | disposition home health service (06) | DRG 493 ==
LOC: ED 11:33 → SUATTDRO 14:41 → 2S 14:41 → 3W 04-15 16:14

== ENCOUNTER 2022-09-15 12:18 | Observation (INO) ==
[2022-09-15] MEDS ORDERED: PIPERACILLIN/TAZOBACTAM 4.5 GM/120 ML BAG IV ONE (13:15)
[2022-09-15] MEDS ORDERED: DAPTOmycin 525 MG in SYRINGE 0 ML IV SCH (13:15)
[2022-09-15] MEDS ORDERED: ACETAMINOPHEN 1,000 MG/100 ML VIAL IV STA (13:16)
--- NOTE | 2022-09-15 13:21 | Emergency Department Note ---
Impression & Plan Cellulitis of toe of right foot, Neuropathic foot ulcer, Chronic respiratory failure with hypoxia, Stage 4 very severe COPD by GOLD classification ED Provider Note NAME: FIGUEROA ESPINOSA Jr AGE: 67 SEX: M ARRIVES VIA: Walk-IN INFORMANT: Patient ED PROVIDER(S): Manuel Villa MD CHIEF COMPLAINT: Foot infection PLAN: Disposition: Admit MEDICAL DECISION MAKING: The patient is a pleasant 67 gentleman with a past medical history of chronic hypoxic respiratory failure secondary COPD on home oxygen, BPH, idiopathic progressive polyneuropathy, nonischemic cardiomyopathy, DALIA who presents to the emergency department via walk-in, coming by his for evaluation of rapidly worsening right great toe ulcer which developed adjacent to a chronic great toe callus and suddenly became erythematous and swollen today and so came to emergency department and deferred his afternoon primary care doctor appointment. He denies any fevers, chills, cough, congestion, GI or symptoms. He denies any formal diagnosis of diabetes but reports his hemoglobin A1c was 6.7 past. On arrival the patient is no distress, afebrile stable vital signs. His right foot demonstrates erythema and edema surrounding the dorsal lateral and plantar aspect of the proximal great toe with a 3 cm blister, which foul-smelling yellowish fluid was expressed and sent for culture. EKG without overt acute ischemia. Plain films of the right foot demonstrates soft tissue swelling without evidence of osteomyelitis on x-ray. WBC and platelets within normal limits. H/H similar to prior. Chemistry without metabolic acidosis. Electrolytes and LFTs without significant abnormalities. ESR and CRP are elevated at 30 and 8.8, respectively. Lactic acid 1.6, within normal limits. Procalcitonin is undetectable. TSH within normal limits. COVID-19 RNA, MAGGIE test was negative. Given the patient's comorbidities empiric treatment initiated with IV Zosyn and daptomycin. Patient agrees with plan for admission for further management and orthopedic consultation. Dr. Null, [facility] [place] [facility] hospitalist, evaluated the patient for admission. Triage Nursing notes reviewed and agree them. Prior/outside medical records reviewed Vital Signs: reviewed Differential diagnosis: Cellulitis, abscess, MRSA infection, DVT, necrotizing fasciitis, dermatitis, drug eruption, allergic reaction, as well as other pathologies. ER treatment provided: See below. Diagnostics interpreted by me: ECG: Sinus tachycardia, 101 bpm, no ectopy, no overt ST elevation or depression, QTc 414, QRS 78. Cardiac Monitoring: An order for continuous cardiac monitoring was placed and demonstrated sinus tachycardia, 101 bpm, no ectopy. Laboratory studies: See below Imaging studies: See below Consultation(s): Dr. Null, [facility] [place] hospitalist HPI: The patient is a pleasant 67 gentleman with a past medical history of chronic hypoxic respiratory failure secondary COPD on home oxygen, BPH, idiopathic progressive polyneuropathy, nonischemic cardiomyopathy, DALIA who presents to the emergency department via walk-in, coming by his for evaluation of rapidly worsening right great toe ulcer which developed adjacent to a chronic great toe callus and suddenly became erythematous and swollen today and so came to emergency department and deferred his afternoon primary care doctor appointment. He denies any fevers, chills, cough, congestion, GI or symptoms. He denies any formal diagnosis of diabetes but reports his hemoglobin A1c was 6.7 past. ROS: See above HPI for pertinent positives & negatives. A total of 10 systems r eviewed and were otherwise negative. VITALS:See Below PHYSICAL EXAMINATION: GENERAL: Awake, alert, well-appearing, in no distress HENT: Normocephalic, atraumatic. Oropharynx with dry mucous membranes and otherwise unremarkable. . EYES: Normal conjunctiva. Sclera non-icteric. NECK: Supple. No nuchal rigidity. FROM. No JVD. RESPIRATORY: Clear to auscultation. CARDIAC: Regular rate, normal rhythm. Extremities warm and well perfused. Pulses equal. ABDOMEN: Soft, non-distended. No tenderness to palpation. No rebound or guarding. No masses. RECTAL: Deferred. MUSCULOSKELETAL: Chest examination reveals no tenderness. The back is symmetrical on inspection without obvious abnormality. There is no CVA tenderness to palpation. No joint edema. LOWER EXTREMITIES: Calves are equal size bilaterally and non-tender. Right foot demonstrates erythema and edema surrounding the dorsal lateral and plantar aspect of the proximal great toe with a 3 cm bullae/blister intact but with punctate opening, from which foul-smelling yellowish fluid was expressed and sent for culture. NEURO: Normal sensorium. No sensory or motor deficits noted. SKIN: No rash or jaundice noted. Manuel Villa MD Past Med/Surg History Medical History Anemia Dependence on continuous supplemental oxygen H/O deep venous thrombosis H/O testicular mass History of fracture of left ankle Lt fibula and tibia History of lung cancer RUL, s/p lobectomy - [facility], 2012 [place] Obesity Pancreatitis Periodic limb movement disorder Peyronie's disease Rectus sheath hematoma Restless leg syndrome Stage 4 very severe COPD by GOLD classification Vitamin D deficiency Surgical History History of lumbar laminectomy History of lung surgery Hx of cholecystectomy (1990) Hx of fusion of cervical spine Family History Father Stroke syndrome Gallbladder disease Mother Gallbladder disease Lung disease Hypertension Cardiac disorder Congestive heart failure Denies family history of Ovarian cancer Prostate cancer Myocardial infarction Breast cancer Colorectal cancer Social History Smoking Status: Former smoker Tobacco Type: Cigarettes Cigarettes Per Day: 20-30; Second Hand Exposure: No; Do You Dip or Chew Tobacco: No; Hx Alcohol Use: No Hx Substance Use: No Preferred Language: Mohawk Communication Ability: Effective Visual Impairment: No Limitations Hearing Ability: Use of Hearing Aid Equities Trader Required: No Beliefs That Will Affect Care: None marital status: Current Living Situation: Spouse Current Living Situation Comment: Lives with current occupational status: previously employed current occupation: [employer] How many Children do You have: 5 Feels Safe at Home: Yes Childhood Exposure to Second-Hand Smoke: Yes Diet: regular Diet Comment: regular Dental Care, Regularly: No Physical Activity Frequency: Other Physical Activity Frequency Comment: Does PT 2x weekly Seatbelt Use: never Sunscreen Use: No Assistive Devices: Oxygen - Continuous and Special Shoe Allergies Allergies Allergy/AdvReac Type Severity Reaction Status Date / Time bee venom protein (honey bee) Allergy Unknown LOCAL Verified 09/15/22 14:19 SWELLING diltiazem Allergy Unknown REDNESS Verified 09/15/22 14:19 "MADE ME LOOK LIKE A STRAWBERRY" Home Meds Home Medications Medication Instructions Recorded Confirmed multivitamin 1 tab PO QAM 02/11/18 09/15/22 hydrocortisone 1 % topical cream 1 applic topical BID PRN Itching 04/01/21 09/15/22 (Anti-Itch (hydrocortisone)) aspirin 81 mg tablet,delayed 81 mg PO QAM 04/05/22 07/12/23 release (Adult Low Dose Aspirin) cholecalciferol (vitamin D3) 50 50 mcg PO QAM 06/09/21 09/15/22 mcg (2,000 unit) capsule triamcinolone acetonide 0.025 % 1 applic topical PRN 02/08/22 09/15/22 topical ointment atorvastatin 10 mg tablet 10 mg PO QAM 09/15/22 09/15/22 fluticasone fur. 200 mcg-umeclid 1 inh inhalation QAM 09/15/22 09/15/22 62.5 mcg-vilant 25 mcg inhalat.powder (Trelegy Ellipta) guaifenesin 1,200 mg tablet, 1,200 mg PO BID 09/15/22 09/15/22 extended release 12 hr (Mucinex) tamsulosin 0.4 mg capsule 0.4 mg PO QAM 09/15/22 09/15/22 Previous Rx's Medication Instructions Recorded Oxygen Home #1 ea 04/20/21 ipratropium 0.5 mg-albuterol 3 mg 3 ml inhalation QID PRN shortness 01/13/22 (2.5 mg base)/3 mL nebulization of breath or wheezing #1,080 vials soln ropinirole 0.5 mg tablet 0.5 mg PO PM #90 tabs 03/10/22 miscellaneous medical supply 1 ea miscellaneous DAILY #1 ea 03/25/22 miscellaneous medical supply 1 ea miscellaneous DAILY H/o Lung 03/25/22 cancer, Stage 4 severe COPD #1 ea benzonatate 100 mg capsule 100 mg PO TID PRN cough #20 caps 05/24/22 levocetirizine 5 mg tablet 5 mg PO DAILY PRN allergy symptoms 06/02/22 #90 tabs omeprazole 40 mg capsule,delayed 40 mg PO DAILY #90 caps 06/28/22 release albuterol sulfate 90 mcg/actuation 2 puff inhalation Q4H PRN 07/20/22 aerosol inhaler shortness of breath or wheezing #3 Inhalers azithromycin 250 mg tablet 250 mg PO .COMPLEX #36 tabs 07/20/22 metoprolol succinate 50 mg 50 mg PO QAM #90 tabs 07/30/22 tablet,extended release 24 hr (Toprol XL) amoxicillin 875 mg-potassium 1 tab PO BID #20 tabs 09/16/22 clavulanate 125 mg tablet Results & Data (ED) Vital Signs Vital Signs - 24 hr 09/15/22 12:27 Temperature 36.3 C L Temperature Source Temporal Artery Scan Pulse Rate 103 H Respiratory Rate 24 Respiratory Depth Normal Blood Pressure 105/63 Blood Pressure Mean 77 Pulse Oximetry 96 Oxygen Delivery Method Nasal Cannula Oxygen Flow Rate 3 Sepsis Recent Fever Within 48 Hours No Sepsis New/Unexplained Change in Mental Status N/A Sepsis Action Taken by Nursing No Action Required Laboratory Data Attestation: I reviewed the patient's lab results. 09/16/22 06:43 09/16/22 06:43 Lab Results 09/15/22 09/15/22 09/15/22 Range/Units 13:04 13:04 13:04 WBC (4.8-10.8) K/ul RBC (4.70-6.10) M/uL Hgb (14.0-18.0) g/dl Hct (42.0-52.0) % MCV (80.0-100.0) fL MCH (25.0-34.0) pg MCHC (32.0-36.0) g/dL RDW Std Deviation (36.4-46.3) fL RDW Coeff of Dinesh (11.5-14.5) % Plt Count (130-400) K/uL MPV (9.4-12.4) fL Immature Gran % (Auto) % Neut % (Auto) % Lymph % (Auto) % [place] % (Auto) % Eos % (Auto) % Baso % (Auto) % Neut # (Auto) (1.40-6.50) K/uL Lymph # (Auto) (1.2-3.4) K/uL [place] # (Auto) (0.11-0.59) K/uL Eos # (Auto) (0-0.50) K/uL Baso # (Auto) (0-0.2) K/uL Immature Gran # (Auto) (0.01-0.20) K/uL Platelet Estimate (Normal) ESR 30 H (0-20) mm/hr Sodium 134 L (136-145) mmol/L Potassium 4.1 (3.5-5.1) mmol/L Chloride 100 (98-107) mmol/L Carbon Dioxide 28 (21-32) mmol/L Anion Gap 6 (3-11) BUN 18 (6-23) mg/dl Creatinine 1.25 (0.6-1.4) mg/dl Est Cr Clr Drug Dosing 72.4 ml/min Est GFR ( Amer) 68.6 ml/min Est GFR (Non-Af Amer) 59.2 ml/min BUN/Creatinine Ratio 14.4 (10-20) Glucose 122 H (70-99(Fasting)) mg/dl Estimat Average Glucose mg/dl Hemoglobin A1c (4.5-5.6) % Lactate (0.4-2.0) mmol/L Calcium 9.1 (8.6-10.3) mg/dl Total Bilirubin 1.2 H (0.2-1.0) mg/dl AST 21 (13-39) U/L ALT 13 (7-52) U/L Alkaline Phosphatase 71 (34-104) U/L C-Reactive Protein 8.82 H (0-0.5) mg/dl Total Protein 6.9 (6.0-8.3) gm/dl Albumin 4.1 (3.4-5.0) gm/dl Globulin 2.8 (2.5-4.0) gm/dl Albumin/Globulin Ratio 1.5 (0.9-2) Procalcitonin < 0.05 (0-0.5) ng/ml TSH (0.300-4.500) uIu/ml SARS-CoV-2, RNA, NAAT (NEGATIVE) 09/15/22 09/15/22 09/15/22 Range/Units 13:04 13:04 13:04 WBC 9.98 (4.8-10.8) K/ul RBC 4.43 L (4.70-6.10) M/uL Hgb 13.2 L (14.0-18.0) g/dl Hct 39.2 L (42.0-52.0) % MCV 88.5 (80.0-100.0) fL MCH 29.8 (25.0-34.0) pg MCHC 33.7 (32.0-36.0) g/dL RDW Std Deviation 41.4 (36.4-46.3) fL RDW Coeff of Dinesh 12.8 (11.5-14.5) % Plt Count 165 (130-400) K/uL MPV 11.2 (9.4-12.4) fL Immature Gran % (Auto) 0.2 % Neut % (Auto) 80.9 % Lymph % (Auto) 9.5 % [place] % (Auto) 8.5 % Eos % (Auto) 0.6 % Baso % (Auto) 0.3 % Neut # (Auto) 8.07 H (1.40-6.50) K/uL Lymph # (Auto) 0.95 L (1.2-3.4) K/uL [place] # (Auto) 0.85 H (0.11-0.59) K/uL Eos # (Auto) 0.06 (0-0.50) K/uL Baso # (Auto) 0.03 (0-0.2) K/uL Immature Gran # (Auto) 0.02 (0.01-0.20) K/uL Platelet Estimate Normal (Normal) ESR (0-20) mm/hr Sodium (136-145) mmol/L Potassium (3.5-5.1) mmol/L Chloride (98-107) mmol/L Carbon Dioxide (21-32) mmol/L Anion Gap (3-11) BUN (6-23) mg/dl Creatinine (0.6-1.4) mg/dl Est Cr Clr Drug Dosing ml/min Est GFR ( Amer) ml/min Est GFR (Non-Af Amer) ml/min BUN/Creatinine Ratio (10-20) Glucose (70-99(Fasting)) mg/dl Estimat Average Glucose mg/dl Hemoglobin A1c (4.5-5.6) % Lactate 1.6 (0.4-2.0) mmol/L Calcium (8.6-10.3) mg/dl Total Bilirubin (0.2-1.0) mg/dl AST (13-39) U/L ALT (7-52) U/L Alkaline Phosphatase (34-104) U/L C-Reactive Protein (0-0.5) mg/dl Total Protein (6.0-8.3) gm/dl Albumin (3.4-5.0) gm/dl Globulin (2.5-4.0) gm/dl Albumin/Globulin Ratio (0.9-2) Procalcitonin (0-0.5) ng/ml TSH 1.639 (0.300-4.500) uIu/ml SARS-CoV-2, RNA, NAAT (NEGATIVE) 09/15/22 09/15/22 Range/Units 13:04 13:20 WBC (4.8-10.8) K/ul RBC (4.70-6.10) M/uL Hgb (14.0-18.0) g/dl Hct (42.0-52.0) % MCV (80.0-100.0) fL MCH (25.0-34.0) pg MCHC (32.0-36.0) g/dL RDW Std Deviation (36.4-46.3) fL RDW Coeff of Dinesh (11.5-14.5) % Plt Count (130-400) K/uL MPV (9.4-12.4) fL Immature Gran % (Auto) % Neut % (Auto) % Lymph % (Auto) % [place] % (Auto) % Eos % (Auto) % Baso % (Auto) % Neut # (Auto) (1.40-6.50) K/uL Lymph # (Auto) (1.2-3.4) K/uL [place] # (Auto) (0.11-0.59) K/uL Eos # (Auto) (0-0.50) K/uL Baso # (Auto) (0-0.2) K/uL Immature Gran # (Auto) (0.01-0.20) K/uL Platelet Estimate (Normal) ESR (0-20) mm/hr Sodium (136-145) mmol/L Potassium (3.5-5.1) mmol/L Chloride (98-107) mmol/L Carbon Dioxide (21-32) mmol/L Anion Gap (3-11) BUN (6-23) mg/dl Creatinine (0.6-1.4) mg/dl Est Cr Clr Drug Dosing ml/min Est GFR ( Amer) ml/min Est GFR (Non-Af Amer) ml/min BUN/Creatinine Ratio (10-20) Glucose (70-99(Fasting)) mg/dl Estimat Average Glucose 131 mg/dl Hemoglobin A1c 6.2 H (4.5-5.6) % Lactate (0.4-2.0) mmol/L Calcium (8.6-10.3) mg/dl Total Bilirubin (0.2-1.0) mg/dl AST (13-39) U/L ALT (7-52) U/L Alkaline Phosphatase (34-104) U/L C-Reactive Protein (0-0.5) mg/dl Total Protein (6.0-8.3) gm/dl Albumin (3.4-5.0) gm/dl Globulin (2.5-4.0) gm/dl Albumin/Globulin Ratio (0.9-2) Procalcitonin (0-0.5) ng/ml TSH (0.300-4.500) uIu/ml SARS-CoV-2, RNA, NAAT NEGATIVE (NEGATIVE) Administered Medications Discontinued Medications Aspirin (Aspirin 81 Mg Ectab) [facility] [place]: 10/16/22 08:59 Last Admin: 09/16/22 10:53 Dose: 81 mg Documented By: [facility] Azithromycin (Azithromycin 250 Mg Tab) 250 mg PO MoWeFr@0900 [facility] Stop: 10/15/22 17:15 Last Admin: 09/15/22 17:41 Dose: Not Given Documented By: REBEL Enoxaparin Sodium (Enoxaparin Inj 40 Mg/0.4 Ml Syr) 40 mg SQ QPM DELILAH Stop: 10/15/22 20:59 Last Admin: 09/15/22 21:10 Dose: 40 mg Documented By: [facility] Fluticasone Furoate (Fluticasone Furoate 200mcg 14 Puffs/Inhaler) 1 puffs INH [facility] [place] [place]: 10/16/22 08:59 Last Admin: 09/16/22 10:54 Dose: 1 puffs Documented By: [facility] Guaifenesin (Guaifenesin 600 Mg Tabcr) 1,200 mg PO BID [facility] Stop: 10/15/22 20:59 Last Admin: 09/16/22 10:54 Dose: 1,200 mg Documented By: [facility] Admin: 09/15/22 20:09 Dose: 1,200 mg Documented By: DELMIS Piperacillin Sod/Tazobactam Sod (Zosyn) 4.5 gm in 120 mls @ 240 mls/hr IV NOW ONE Stop: 09/15/22 13:44 Last Infusion: 09/15/22 17:22 Dose: 0 mls/hr Documented By: Admin: 09/15/22 14:21 Dose: 240 mls/hr Documented By: BOOKER Daptomycin 525 mg/ Syringe 10.5 mls @ 5.25 mls/min IV Q24H DELILAH; Protocol Stop: 09/17/22 13:14 Last Admin: 09/15/22 13:55 Dose: 5.25 mls/min Documented By: YVONNE Acetaminophen (Ofirmev) 1,000 mg in 100 mls @ 400 mls/hr IV NOW STA Stop: 09/15/22 13:30 Last Infusion: 09/15/22 14:38 Dose: 0 mls/hr Documented By: Admin: 09/15/22 14:21 Dose: 400 mls/hr Documented By: BOOKER Sodium Chloride (Nss) 500 mls @ 125 mls/hr IV .Q4H DELILAH Stop: 10/15/22 13:29 Last Infusion: 09/15/22 17:22 Dose: 0 mls/hr Documented By: Admin: 09/15/22 13:53 Dose: 125 mls/hr Documented By: YVONNE Daptomycin 350 mg/ Syringe 7 mls @ 3.5 mls/min IV Q24H DELILAH; Protocol Stop: 09/22/22 13:59 Last Admin: 09/16/22 13:28 Dose: 3.5 mls/min Documented By: INGA Piperacillin Sod/Tazobactam (Sod 4.5 gm/ Dextrose) 120 mls @ 30 mls/hr IV Q8H DELILAH; Protocol Stop: 09/22/22 19:59 Last Infusion: 09/16/22 15:40 Dose: 0 mls/hr Documented By: Admin: 09/16/22 11:25 Dose: 30 mls/hr Documented By: Infusion: 09/16/22 08:16 Dose: 0 mls/hr Documented By: Admin: 09/16/22 04:16 Dose: 30 mls/hr Documented By: Infusion: 09/16/22 00:14 Dose: 0 mls/hr Documented By: Admin: 09/15/22 20:06 Dose: 30 mls/hr Documented By: DELMIS Metoprolol Succinate (Metoprolol Succ 50mg Ext Rel Tab) 50 mg [facility] [place] [place]: 10/16/22 08:59 Last Admin: 09/16/22 10:53 Dose: 50 mg Documented By: [facility] Pantoprazole Sodium (Pantoprazole 40 Mg Tab) 40 mg PO DAILY [facility] Stop: 10/16/22 08:59 Last Admin: 09/16/22 10:53 Dose: 40 mg Documented By: [facility] Ropinirole HCl (Ropinirole Hcl 0.25 Mg Tablet) 0.5 mg PO PM [facility] Stop: 10/15/22 20:59 Last Admin: 09/15/22 20:10 Dose: 0.5 mg Documented By: DELMIS Tamsulosin HCl (Tamsulosin Hcl 0.4 Mg Cap) 0.4 mg [facility] [place] [place]: 10/16/22 08:59 Last Admin: 09/16/22 10:53 Dose: 0.4 mg Documented By: [facility] Umeclidinium/Vilanterol (Umeclidinium/Vilanterol 62.5/25mcg 7 Puffs/Inhaler) 1 puffs INH [facility] [place] [place]: 10/16/22 08:59 Last Admin: 09/16/22 10:55 Dose: 1 puffs Documented By: [facility] Imaging Data Radiologist's Impression: Foot X-Ray 09/15/22 13:11 XR foot RT min 3V routine CLINICAL HISTORY: great toe ulcer cellulitis, r/o bony involvement COMPARISON STUDY: Right first toe 07/01/2018. FINDINGS: Soft tissue swelling within the right first toe. The interphalangeal joint remains fused. No fracture or dislocation within the right foot. No bony destruction to suggest an osteomyelitis. No radiopaque foreign bodies. There is a posterior calcaneal spur noted. IMPRESSION: Soft tissue swelling within the right first toe likely representing a cellulitis. No evidence for osteomyelitis. ACT 112: Negative or not required by law. Electronically signed by: Terrance Chen M.D. 09/15/2022 3:31 PM Discharge Plan Visit Data Chief Complaint: Edema To Extremity Stated Complaint: RIGHT FOOT LOOKS INFECTED, RED AND SWELLED ED Provider: Manuel Villa Discharge Problem: Cellulitis of toe of right foot, Neuropathic foot ulcer, Chronic respiratory failure with hypoxia, Stage 4 very severe COPD by GOLD classification Patient Disposition: Admitted As Inpatient Discharge Instructions Interventions: ED Discharge Assessment Last Done: 09/15/22 16:39
[2022-09-15] MEDS ORDERED: SODIUM CHLORIDE 0.9% 500 ML IV SCH (13:30)
[2022-09-15 14:03] LABS: Albumin Globulin Ratio 1.5 (0.9-2); Albumin Level 4.1 gm/dl (3.4-5.0); BUN Creatinine Ratio 14.4 (10-20); Bilirubin,Total 1.2 mg/dl (0.2-1.0); C Reactive Protein 8.82 mg/dl (0-0.5); Calcium 9.1 mg/dl (8.6-10.3); Creatinine Clr Calc Pharmacy 72.4 ml/min; Est GFR (African American) 68.6 ml/min; Est GFR (Non-African American) 59.2 ml/min; Globulin 2.8 gm/dl (2.5-4.0); Potassium 4.1 mmol/L (3.5-5.1); Total Protein 6.9 gm/dl (6.0-8.3)
[2022-09-15 14:07] LABS: Basophils # (auto) 0.03 K/uL (0-0.2); Basophils % (auto) 0.3 %; Eosinophils # (auto) 0.06 K/uL (0-0.50); Eosinophils % (auto) 0.6 %; Hematocrit (blood only) 39.2 % (42.0-52.0); Hemoglobin 13.2 g/dl (14.0-18.0); Immature Granulocytes # (auto) 0.02 K/uL (0.01-0.20); Immature Granulocytes % (auto) 0.2 %; Lymphocytes # (auto) 0.95 K/uL (1.2-3.4); Lymphocytes % (auto) 9.5 %; Mean Corpuscular Hemoglobin 29.8 pg (25.0-34.0); Mean Corpuscular Hgb Conc 33.7 g/dL (32.0-36.0); Mean Corpuscular Volume 88.5 fL (80.0-100.0); Mean Platelet Volume 11.2 fL (9.4-12.4); Monocytes # (auto) 0.85 K/uL (0.11-0.59); Monocytes % (auto) 8.5 %; Neutrophils # (auto) 8.07 K/uL (1.40-6.50); Neutrophils % (auto) 80.9 %; Platelet Count 165 K/uL (130-400); Platelet Estimate Normal (Normal); RDW Coefficient of Variation 12.8 % (11.5-14.5); RDW Standard Deviation 41.4 fL (36.4-46.3); Red Blood Count 4.43 M/uL (4.70-6.10); White Blood Count 9.98 K/ul (4.8-10.8)
[2022-09-15 14:15] LABS: Estimated Average Glucose 131 mg/dl; Hemoglobin A1C 6.2 % (4.5-5.6)
--- NOTE | 2022-09-15 15:02 | History & Physical Report ---
Date of Service September 15, 2022 Assessment & Plan (1) Cellulitis of toe of right foot: Plan: Observation status due to likely need for deroofing ulcer and possible need for debridement - consult podiatry Increased risk due to how quick this has occurred and peripheral neuropathy US arterial doppler to assess blood supply as PT/DP poorly palpable although good capillary refill < 2 s. Will continue MRSA coverage with daptomycin due to abscess formation although likely friction blister developed into this Continue pseudomonas coverage with Zosyn due to significant odor present Follow up pus and blood cultures to determine ongoing antibiotics (2) Neuropathic foot ulcer: Plan: B12 level in AM (3) Restless leg syndrome: Plan: Continue ropinirole (4) BPH (benign prostatic hyperplasia): Plan: Continue tamsulosin (5) Chronic respiratory failure with hypoxia: Plan: Baseline 2-3 LPM O2 at rest (6) Stage 4 very severe COPD by GOLD classification: Plan: Continue routine inhalers, expiratory wheeze on exam however patient at his baseline, do not suspect acute exacerbation Continue azithromycin 3x weekly Plan VTE Prophylaxis - Lovenox 40mg SQ daily Diet - heart healthy Disposition - observation status to med/surg Admission and Anticipated Discharge Date Admission Date: September 15, 2022 History of Present Illness Chief Complaint: Right toe blister, swelling and redness Primary Care Provider: Aggie Mccollum MD Rodney Payan is a 67 year old male with peripheral neuropathy who presents to the ER with right toe swelling and redness. He reports seeing a blister on his right 1st toe when he woke up yesterday. Today he woke up and his toe and foot were significantly swelling and erythematous around first metatarsal phalangeal joint surrounding blister. He has a scar here from prior surgery with straightning of his toe following contracture from meningitis as a child. He reports neuropathy and not being able to feel his feet well from prior back/neck problems and surgery. He is borderline diabetic and not currently on treatment with last HbA1C 6.2. He denies any fever or chills. He denies any history of gout and swelling definitely occurred after blister formation. At baseline he reports continuous oxygen 2-3 LPM O2 at rest due to prior lung cancer but also has COPD. Allergies Allergy/AdvReac Type Severity Reaction Status Date / Time bee venom protein (honey bee) Allergy Unknown LOCAL Verified 09/15/22 14:19 SWELLING diltiazem Allergy Unknown REDNESS Verified 09/15/22 14:19 "MADE ME LOOK LIKE A STRAWBERRY" Home Medications Medication Instructions Recorded Confirmed Type multivitamin 1 tab PO QAM 02/11/18 09/15/22 History hydrocortisone 1 % topical cream 1 applic topical BID PRN Itching 04/01/21 09/15/22 History (Anti-Itch (hydrocortisone)) Oxygen Home #1 ea 04/20/21 07/15/22 Rx aspirin 81 mg tablet,delayed 81 mg PO QAM 06/09/21 09/15/22 History release (Adult Low Dose Aspirin) cholecalciferol (vitamin D3) 50 50 mcg PO QAM 06/09/21 09/15/22 History mcg (2,000 unit) capsule ipratropium 0.5 mg-albuterol 3 mg 3 ml inhalation QID PRN shortness 01/13/22 09/15/22 Rx (2.5 mg base)/3 mL nebulization of breath or wheezing #1,080 vials soln triamcinolone acetonide 0.025 % 1 applic topical PRN 02/08/22 09/15/22 History topical ointment ropinirole 0.5 mg tablet 0.5 mg PO PM #90 tabs 03/10/22 09/15/22 Rx miscellaneous medical supply 1 ea miscellaneous DAILY #1 ea 03/25/22 07/15/22 Rx miscellaneous medical supply 1 ea miscellaneous DAILY H/o Lung 03/25/22 07/15/22 Rx cancer, Stage 4 severe COPD #1 ea benzonatate 100 mg capsule 100 mg PO TID PRN cough #20 caps 05/24/22 09/15/22 Rx levocetirizine 5 mg tablet 5 mg PO DAILY PRN allergy symptoms 06/02/22 09/15/22 Rx #90 tabs omeprazole 40 mg capsule,delayed 40 mg PO DAILY #90 caps 06/28/22 09/15/22 Rx release albuterol sulfate 90 mcg/actuation 2 puff inhalation Q4H PRN 07/20/22 09/15/22 Rx aerosol inhaler shortness of breath or wheezing #3 Inhalers azithromycin 250 mg tablet 250 mg PO .COMPLEX #36 tabs 07/20/22 09/15/22 Rx metoprolol succinate 50 mg 50 mg PO QAM #90 tabs 07/30/22 09/15/22 Rx tablet,extended release 24 hr (Toprol XL) atorvastatin 10 mg tablet 10 mg PO QAM 09/15/22 09/15/22 History fluticasone fur. 200 mcg-umeclid 1 inh inhalation QAM 09/15/22 09/15/22 History 62.5 mcg-vilant 25 mcg inhalat.powder (Trelegy Ellipta) guaifenesin 1,200 mg tablet, 1,200 mg PO BID 09/15/22 09/15/22 History extended release 12 hr (Mucinex) tamsulosin 0.4 mg capsule 0.4 mg PO QAM 09/15/22 09/15/22 History Past Med/Surg History Medical History Anemia Dependence on continuous supplemental oxygen H/O deep venous thrombosis H/O testicular mass History of fracture of left ankle Lt fibula and tibia History of lung cancer RUL, s/p lobectomy - [facility], 2011 [place] Obesity Pancreatitis Periodic limb movement disorder Peyronie's disease Rectus sheath hematoma Restless leg syndrome Stage 4 very severe COPD by GOLD classification Vitamin D deficiency Surgical History History of lumbar laminectomy History of lung surgery Hx of cholecystectomy (1990) Hx of fusion of cervical spine Family History Father Stroke syndrome Gallbladder disease Mother Gallbladder disease Lung disease Hypertension Cardiac disorder Congestive heart failure Denies family history of Ovarian cancer Prostate cancer Myocardial infarction Breast cancer Colorectal cancer Social History Smoking Status: Former smoker Tobacco Type: Cigarettes Cigarettes Per Day: 20-30; Second Hand Exposure: No; Do You Dip or Chew Tobacco: No; Hx Alcohol Use: No Hx Substance Use: No Preferred Language: Colombian Communication Ability: Effective Visual Impairment: No Limitations Hearing Ability: Use of Hearing Aid 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: No Beliefs That Will Affect Care: None marital status: Current Living Situation: Spouse Current Living Situation Comment: Lives with current occupational status: previously employed current occupation: [employer] How many Children do You have: 5 Other Information That Helps Us Care for You: No Feels Safe at Home: Yes Childhood Exposure to Second-Hand Smoke: Yes Diet: regular Diet Comment: regular Dental Care, Regularly: No Physical Activity Frequency: Other Physical Activity Frequency Comment: Does PT 2x weekly Seatbelt Use: never Sunscreen Use: No Assistive Devices: Brace/Splint/Immobilizer, Glasses, Oxygen - Continuous, Walker and Wheelchair Review of Systems Review of Systems: All systems reviewed & are unremarkable except as noted in HPI & below Physical Exam Constitutional: WD/WN, vitals as above Eyes: + anicteric sclerae; normal pupil size ENMT: external ear and nose normal, oropharynx normal Respiratory: normal respiratory effort; no respiratory distress Auscultation: + wheezes (expiratory); breath sounds present, no diminished lung sounds, no crackles, no rales and no rhonchi Cardiovascular: Rate/Rhythm: regular rate and regular rhythm Heart Sounds: no murmur Vessels: posterior tibial pulses present (poorly palpable) and dorsalis pedis pulses present (poorly palpable) Extremities: normal capillary refill and + pedal edema; no calf tenderness Gastrointestinal (Abdomen): normal bowel sounds, soft, nontender, no hepatosplenomegaly Musculoskeletal: no cyanosis or clubbing, extremities motor strength 5/5 Skin: Erythema and swelling of right foot especially surrounding plantar surface blister approximately 3cm circumference under 1st MTPJ Neurologic: moves all extremities and awake; not confused Psychiatric: A+Ox3, euthymic affect Results & Data Results & Data Vital Signs (Past 12 Hours) Vital Signs Temp Pulse Pulse Resp BP BP Pulse Ox 09/15/22 13:50 94 H 09/15/22 13:13 09/15/22 13:13 93 H 24 107/66 09/15/22 12:27 36.3 C L 103 H 24 105/63 96 O2 Del Method O2 Flow Rate 09/15/22 13:50 09/15/22 13:13 Room Air 09/15/22 13:13 09/15/22 12:27 Nasal Cannula 3 Laboratory Results Abnormal lab results 09/15/22 09/15/22 09/15/22 Range/Units 13:04 13:04 13:04 RBC 4.43 L (4.70-6.10) M/uL Hgb 13.2 L (14.0-18.0) g/dl Hct 39.2 L (42.0-52.0) % Neut # (Auto) 8.07 H (1.40-6.50) K/uL Lymph # (Auto) 0.95 L (1.2-3.4) K/uL Vil[place] # (Auto) 0.85 H (0.11-0.59) K/uL ESR 30 H (0-20) mm/hr Sodium 134 L (136-145) mmol/L Glucose 122 H (70-99(Fasting)) mg/dl Hemoglobin A1c (4.5-5.6) % Total Bilirubin 1.2 H (0.2-1.0) mg/dl C-Reactive Protein 8.82 H (0-0.5) mg/dl 09/15/22 Range/Units 13:04 RBC (4.70-6.10) M/uL Hgb (14.0-18.0) g/dl Hct (42.0-52.0) % Neut # (Auto) (1.40-6.50) K/uL Lymph # (Auto) (1.2-3.4) K/uL Vil[place] # (Auto) (0.11-0.59) K/uL ESR (0-20) mm/hr Sodium (136-145) mmol/L Glucose (70-99(Fasting)) mg/dl Hemoglobin A1c 6.2 H (4.5-5.6) % Total Bilirubin (0.2-1.0) mg/dl C-Reactive Protein (0-0.5) mg/dl Diagnostic Findings XR foot RT min 3V routine CLINICAL HISTORY: great toe ulcer cellulitis, r/o bony involvement COMPARISON STUDY: Right first toe 07/01/2018. FINDINGS: Soft tissue swelling within the right first toe. The interphalangeal joint remains fused. No fracture or dislocation within the right foot. No bony destruction to suggest an osteomyelitis. No radiopaque foreign bodies. There is a posterior calcaneal spur noted. IMPRESSION: Soft tissue swelling within the right first toe likely representing a cellulitis. No evidence for osteomyelitis. Medications Administered ER Medications Given: Daptomycin 525mg IV Zosyn 4.5mg IV ECG Rate (beats per minute): 101 Rhythm: sinus tachycardia Findings: no acute ischemic change Comparison ECG Date: from (May 24, 2022) Change: no significant change Code Status & VTE Plan Code Status Full VTE Prophylaxis Plan VTE Prophylaxis will be ordered: Yes PG Care Time/CCT Total # of Minutes Spent Total Time Spent with Patient: Total time spent is greater than 50% in coordination of care (as documented) at patient's floor/unit and/or counseling patient: Coding Level of Care Code 45891 INT INP/OBS CARE 3/75MIN Diagnoses Cellulitis of toe of right foot L03.031 Neuropathic foot ulcer L97.509 Restless leg syndrome G25.81 BPH (benign prostatic hyperplasia) N40.0 Chronic respiratory failure with hypoxia J96.11 Stage 4 very severe COPD by GOLD classification J44.9
--- NOTE | 2022-09-15 15:33 | XRay Report ---
XR foot RT min 3V routine CLINICAL HISTORY: great toe ulcer cellulitis, r/o bony involvement COMPARISON STUDY: Right first toe 07/01/2018. FINDINGS: Soft tissue swelling within the right first toe. The interphalangeal joint remains fused. N o fracture or dislocation within the right foot. No bony destruction to suggest an osteomyelitis. No radiopaque foreign bodies. There is a posterior calcaneal spur noted. IMPRESSION: Soft tissue swelling within the right first toe likely representing a cellulitis. No estephanie dence for osteomyelitis. ACT 112: Negative or not required by law. Electronically signed by: Terrance Chen M.D. 09/15/2022 3:31 PM
[2022-09-15] MEDS ORDERED: AZITHROMYCIN 250 MG TAB PO SCH (17:16)
[2022-09-15] MEDS ORDERED: BENZONATATE 100 MG CAPSULE PO PRN (17:16)
[2022-09-15] MEDS ORDERED: ALBUT/IPRATROP 3MG/0.5MG NEB 3 ML VIAL INH PRN (17:16)
[2022-09-15] MEDS ORDERED: CETIRIZINE HCL 10 MG TABLET PO PRN (17:32)
[2022-09-15] MEDS: PIPERACILLIN/TAZOBACTAM 4.5 GM in DEXTROSE 5% 100 ML IV SCH (20:06)
[2022-09-15] MEDS: guaiFENesin 600 MG TABCR PO SCH (20:09)
[2022-09-15] MEDS ORDERED: rOPINIRole HCL 0.25 MG TABLET PO SCH (21:00)
[2022-09-15] MEDS ORDERED: ENOXAPARIN INJ 40 MG/0.4 ML SYR SQ SCH (21:00)
--- NOTE | 2022-09-15 21:20 | Orthopedic Consultation ---
Date of Consultation September 15, 2022 Assessment & Plan (1) Neuropathic foot ulcer: Patient seen, evaluated and treated. I examined the patient for an ulcer that has been resistant to healing A thorough evaluation of the wound was done in detail. Manners in which pressure reduction could be achieved were investigated and initiated. Off-loading is a critical part of this patient's management. Ordered off loading surgical shoe for Patient. Patient is weight bearing to heel in Surgical shoe. After evaluation of the patient and wound status and characteristics, it was decided that the wound would be debrided. Please see below. Deep wound cultures taken. To offload or remove pressure to the wound is essential. Will continue to follow while Patient remains in house. Thank you for allowing me to participate in the care of this Patient. Today's procedure is an excisional debridement of deep tissue. There is a moderate amount of serosanguineous exudate draining adjacent bullae. The ulcer base is described as containing has pink granulation. Hyperkeratotic, Necrotic or devitalized tissue is estimated to be present in approximately 60% of the pressure ulcer bed. The ulcer has been exposed full-thickness tissue. I have informed the patient of the risks and benefit of this procedure and they have had the opportunity to ask questions. Appropriate consent has been obtained. The patient refused site marking. The area was prepped and draped in usual aseptic manner. The procedure was performed and a clean field. I debrided the wound sharply with a sterile #15 blade and necrotic tissue was excised down to and including sub cutaneous tissue . Bleeding was minimal and hemostasis was achieved using pressure. The patient tolerated procedure and anesthesia well. Postprocedure no increased pain. (2) Cellulitis of toe of right foot: History of Present Illness Attending Physician: Tevin Null MD History of Present Illness Patient is a pleasant 67 year old man who is seen at bedside with for right foot neuropathic foot ulcer. Patient has a past medical history of chronic hypoxic respiratory failure secondary COPD on home oxygen, BPH, idiopathic progressive polyneuropathy, nonischemic cardiomyopathy, DALIA. Patient relates long history of right foot great toe lesion. Patient presented to [facility] emergency department via walk-in earlier today for evaluation of rapidly worsening right great toe ulcer which developed adjacent to a chronic great toe callus and suddenly became erythematous and swollen. He denies any formal diagnosis of diabetes but reports his hemoglobin A1c was 6.7 past. Upon ED arrival his right foot demonstrated erythema and edema surrounding the dorsal lateral and plantar aspect of the proximal great toe with a 3 cm blister, which foul-smelling yellowish fluid was expressed and sent for culture. Allergies Allergy/AdvReac Type Severity Reaction Status Date / Time bee venom protein (honey bee) Allergy Unknown LOCAL Verified 09/15/22 14:19 SWELLING diltiazem Allergy Unknown REDNESS Verified 09/15/22 14:19 "MADE ME LOOK LIKE A STRAWBERRY" Home Medications Medication Instructions Recorded Confirmed Type multivitamin 1 tab PO QAM 02/11/18 09/15/22 History hydrocortisone 1 % topical cream 1 applic topical BID PRN Itching 04/01/21 09/15/22 History (Anti-Itch (hydrocortisone)) Oxygen Home #1 ea 04/20/21 07/15/22 Rx aspirin 81 mg tablet,delayed 81 mg PO QAM 06/09/21 09/15/22 History release (Adult Low Dose Aspirin) cholecalciferol (vitamin D3) 50 50 mcg PO QAM 06/09/21 09/15/22 History mcg (2,000 unit) capsule ipratropium 0.5 mg-albuterol 3 mg 3 ml inhalation QID PRN shortness 01/13/22 09/15/22 Rx (2.5 mg base)/3 mL nebulization of breath or wheezing #1,080 vials soln triamcinolone acetonide 0.025 % 1 applic topical PRN 02/08/22 09/15/22 History topical ointment ropinirole 0.5 mg tablet 0.5 mg PO PM #90 tabs 03/10/22 09/15/22 Rx miscellaneous medical supply 1 ea miscellaneous DAILY #1 ea 03/25/22 07/15/22 Rx miscellaneous medical supply 1 ea miscellaneous DAILY H/o Lung 03/25/22 07/15/22 Rx cancer, Stage 4 severe COPD #1 ea benzonatate 100 mg capsule 100 mg PO TID PRN cough #20 caps 05/24/22 09/15/22 Rx levocetirizine 5 mg tablet 5 mg PO DAILY PRN allergy symptoms 06/02/22 09/15/22 Rx #90 tabs omeprazole 40 mg capsule,delayed 40 mg PO DAILY #90 caps 06/28/22 09/15/22 Rx release albuterol sulfate 90 mcg/actuation 2 puff inhalation Q4H PRN 07/20/22 09/15/22 Rx aerosol inhaler shortness of breath or wheezing #3 Inhalers azithromycin 250 mg tablet 250 mg PO .COMPLEX #36 tabs 07/20/22 09/15/22 Rx metoprolol succinate 50 mg 50 mg PO QAM #90 tabs 07/30/22 09/15/22 Rx tablet,extended release 24 hr (Toprol XL) atorvastatin 10 mg tablet 10 mg PO QAM 09/15/22 09/15/22 History fluticasone fur. 200 mcg-umeclid 1 inh inhalation QAM 09/15/22 09/15/22 History 62.5 mcg-vilant 25 mcg inhalat.powder (Trelegy Ellipta) guaifenesin 1,200 mg tablet, 1,200 mg PO BID 09/15/22 09/15/22 History extended release 12 hr (Mucinex) tamsulosin 0.4 mg capsule 0.4 mg PO QAM 09/15/22 09/15/22 History Patient History Medical History Anemia Dependence on continuous supplemental oxygen H/O deep venous thrombosis H/O testicular mass History of fracture of left ankle Lt fibula and tibia History of lung cancer RUL, s/p lobectomy - [facility], 2011 [place] Obesity Pancreatitis Periodic limb movement disorder Peyronie's disease Rectus sheath hematoma Restless leg syndrome Stage 4 very severe COPD by GOLD classification Vitamin D deficiency Surgical History History of lumbar laminectomy History of lung surgery Hx of cholecystectomy (1990) Hx of fusion of cervical spine Family History Father Stroke syndrome Gallbladder disease Mother Gallbladder disease Lung disease Hypertension Cardiac disorder Congestive heart failure Denies family history of Ovarian cancer Prostate cancer Myocardial infarction Breast cancer Colorectal cancer Social History Smoking Status: Former smoker Tobacco Type: Cigarettes Cigarettes Per Day: 20-30; Second Hand Exposure: No; Do You Dip or Chew Tobacco: No; Hx Alcohol Use: No Hx Substance Use: No Preferred Language: Azeri Communication Ability: Effective Visual Impairment: No Limitations Hearing Ability: Use of Hearing Aid Corn 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 Required: No Beliefs That Will Affect Care: None marital status: Current Living Situation: Spouse Current Living Situation Comment: Lives with current occupational status: previously employed current occupation: [employer] How many Children do You have: 5 Other Information That Helps Us Care for You: No Feels Safe at Home: Yes Childhood Exposure to Second-Hand Smoke: Yes Diet: regular Diet Comment: regular Dental Care, Regularly: No Physical Activity Frequency: Other Physical Activity Frequency Comment: Does PT 2x weekly Seatbelt Use: never Sunscreen Use: No Assistive Devices: Brace/Splint/Immobilizer, Glasses, Oxygen - Continuous, Walker and Wheelchair Review of Systems Review of Systems: All systems reviewed & are unremarkable except as noted in HPI & below Physical Exam Constitutional: cooperative and comfortable Eyes: normal visual mcgregor by confrontation Neck: trachea midline Respiratory: normal respiratory effort Cardiovascular: Rate/Rhythm: regular rate and regular rhythm Musculoskeletal: Extremities: extremities normal to inspection Skin: + ulcer (Right hallux IPJ ) and + erythema Neurologic: moves all extremities (Decreased epicritic sensation) Psychiatric: Orientation: alert and oriented x 3 Results & Data Vital Signs (Past 12 Hours) Vital Signs Temp Pulse Pulse Resp BP BP Pulse Ox 09/15/22 19:55 36.7 C 88 18 136/62 97 09/15/22 17:23 36.7 C 83 16 114/67 98 09/15/22 16:39 36.8 C 84 17 111/67 100 09/15/22 13:50 94 H 09/15/22 13:13 09/15/22 13:13 93 H 24 107/66 09/15/22 12:27 36.3 C L 103 H 24 105/63 96 O2 Del Method O2 Flow Rate 09/15/22 19:55 Nasal Cannula 3 09/15/22 17:23 Nasal Cannula 3 09/15/22 16:39 Nasal Cannula 3 09/15/22 13:50 09/15/22 13:13 Room Air 09/15/22 13:13 09/15/22 12:27 Nasal Cannula 3 Diagnostic Findings [facility], [place] [phone] XRay Report Patient:FIGUEROA ESPINOSA Admit Date:09/15/22 MR#:[id number] Address1:[address] Acct ID:[id number] Address2: Date:1955 [facility] Zip:[place] [address] Age:67 Location:ED Sex:M Room/Bed: Att Phy: Diagnosis:RIGHT FOOT LOOKS INFECTED, RED AND SWELLED Lilly Phy:Aggie Mccollum MD Service Date:09/15/22 [facility] Phy: Interpreting Phy:Terrance Chen MDAdmit Phy: Ordering Phy:Manuel Villa M.D. cc: ~ XR foot RT min 3V routine CLINICAL HISTORY: great toe ulcer cellulitis, r/o bony involvement COMPARISON STUDY: Right first toe 07/01/2018. FINDINGS: Soft tissue swelling within the right first toe. The interphalangeal joint remains fused. No fracture or dislocation within the right foot. No bony destruction to suggest an osteomyelitis. No radiopaque foreign bodies. There is a posterior calcaneal spur noted. IMPRESSION: Soft tissue swelling within the right first toe likely representing a cellulitis. No evidence for osteomyelitis. ACT 112: Negative or not required by law. Electronically signed by: Terrance Chen M.D. 09/15/2022 3:31 PM Dictated:09/15/22 1528 Transcribed: 09/15/22 1528
[2022-09-16] MEDS: PIPERACILLIN/TAZOBACTAM 4.5 GM in DEXTROSE 5% 100 ML IV SCH ×2 (04:16→11:25)
[2022-09-16 07:20] LABS: Basophils # (auto) 0.04 K/uL (0-0.2); Basophils % (auto) 0.7 %; Eosinophils # (auto) 0.15 K/uL (0-0.50); Eosinophils % (auto) 2.7 %; Hematocrit (blood only) 36.5 % (42.0-52.0); Hemoglobin 12.4 g/dl (14.0-18.0); Immature Granulocytes # (auto) 0.03 K/uL (0.01-0.20); Immature Granulocytes % (auto) 0.5 %; Lymphocytes # (auto) 0.97 K/uL (1.2-3.4); Lymphocytes % (auto) 17.2 %; Mean Corpuscular Volume 88.4 fL (80.0-100.0); Mean Platelet Volume 10.6 fL (9.4-12.4); Monocytes # (auto) 0.62 K/uL (0.11-0.59); Neutrophils # (auto) 3.84 K/uL (1.40-6.50); Neutrophils % (auto) 67.9 %; Platelet Count 155 K/uL (130-400); RDW Coefficient of Variation 12.8 % (11.5-14.5); RDW Standard Deviation 41.1 fL (36.4-46.3); Red Blood Count 4.13 M/uL (4.70-6.10); White Blood Count 5.65 K/ul (4.8-10.8)
[2022-09-16 07:36] LABS: Albumin Globulin Ratio 1.5 (0.9-2); Albumin Level 3.7 gm/dl (3.4-5.0); BUN Creatinine Ratio 12.2 (10-20); Bilirubin,Total 0.9 mg/dl (0.2-1.0); Calcium 8.7 mg/dl (8.6-10.3); Creatinine Clr Calc Pharmacy 78.6 ml/min; Est GFR (African American) 75.9 ml/min; Est GFR (Non-African American) 65.5 ml/min; Globulin 2.5 gm/dl (2.5-4.0); Potassium 4.1 mmol/L (3.5-5.1); Total Protein 6.2 gm/dl (6.0-8.3)
[2022-09-16] MEDS ORDERED: METOPROLOL SUCC 50MG EXT REL TAB PO SCH (09:00)
[2022-09-16] MEDS ORDERED: FLUTICASONE FUROATE 200MCG 14 PUFFS/INHALER INH SCH (09:00)
[2022-09-16] MEDS ORDERED: PANTOprazole 40 MG TAB PO SCH (09:00)
[2022-09-16] MEDS ORDERED: UMECLIDINIUM/VILANTEROL 62.5/25MCG 7 PUFFS/INHALER INH SCH (09:00)
[2022-09-16] MEDS ORDERED: TAMSULOSIN HCL 0.4 MG CAP PO SCH (09:00)
[2022-09-16] MEDS ORDERED: ASPIRIN 81 MG ECTAB PO SCH (09:00)
[2022-09-16] MEDS: guaiFENesin 600 MG TABCR PO SCH (10:54)
--- NOTE | 2022-09-16 11:20 | Ultrasound Report ---
US arterial duplex LE RT HISTORY: 67 years-old Male Right 1st toe infection right lower extremity ulcer COMPARISON: None TECHNIQUE: Multiple real-time sonographic images of the right lower extremity were obtained assessing grayscale appearance, color and spectral flow. Segmental pressures also obtained. FINDINGS: Right lower extremity brachial pressure was not imaged. Right dorsalis pedis of 121 (0.97); NAHID of 0. 97 Left lower extremity brachial pressure of 125. Dorsalis pedis of 132 (1.06); posterior tibial of 99 ( 0.79) NAHID of 1.06. Atherosclerosis of the right lower extremity. Triphasic waveforms are noted above the level of the kn ee. Blunted monophasic waveforms of the posterior tibial artery with dampened peak systolic velocitie s measuring up to 1.2 cm/s. Biphasic waveforms in the dorsalis pedis artery. No arterial occlusion id entified. IMPRESSION: 1. Dampened monophasic waveforms within the posterior tibial artery compatible with high-grade stenos is. 2. Triphasic waveforms noted above the level of the knee. 3. Atherosclerosis. 4. Normal bilateral ABIs. ACT 112: Negative or not required by law. The above report was generated using voice recognition software. It may contain grammatical, syntax o r spelling errors. Electronically signed by: Bernard Mendoza M.D. 09/16/2022 11:18 AM
--- NOTE | 2022-09-16 12:17 | Electrocardiogram Report ---
Test Reason : Blood Pressure : / mmHG Vent. Rate : 101 BPM Atrial Rate : 101 BPM P-R Int : 172 ms QRS Dur : 078 ms QT Int : 320 ms P-R-T Axes : 076 044 059 degrees QTc Int : 414 ms Sinus tachycardia Otherwise normal ECG When compared with ECG of 24-MAY-2022 17:15, No significant change was found Confirmed by Thomas Claros ([id number]) on 09/16/2022 12:16:54 PM Referred By: REFERRED SELF Confirmed By:Matias Claros
--- NOTE | 2022-09-16 13:06 | Discharge Summary ---
Date of Service September 16, 2022 Admission HPI Per Admitting Provider Rodney Payan is a 67 year old male with peripheral neuropathy who presents to the ER with right toe swelling and redness. He reports seeing a blister on his right 1st toe when he woke up yesterday. Today he woke up and his toe and foot were significantly swelling and erythematous around first metatarsal phalangeal joint surrounding blister. He has a scar here from prior surgery with straightning of his toe following contracture from meningitis as a child. He reports neuropathy and not being able to feel his feet well from prior back/neck problems and surgery. He is borderline diabetic and not currently on treatment with last HbA1C 6.2. He denies any fever or chills. He denies any history of gout and swelling definitely occurred after blister formation. At baseline he reports continuous oxygen 2-3 LPM O2 at rest due to prior lung cancer but also has COPD. Principal Diagnosis Right foot cellulitis Discharge Exam General-alert and oriented x3, no fevers, no chills HEENT-head atraumatic and normocephalic, pupils equal and reactive to light, extraocular muscles intact Neck-no lymphadenopathy or thyromegaly, trachea midline Chest-clear to auscultation percussion. No rales wheezing or rhonchi Cardiac-regular rate and rhythm, normal S1 and S2, Abdomen-normal bowel sounds, nontender, no hepatosplenomegaly Extremities-right forefoot is heavily bandaged. Neuro-cranial nerves II through XII intact, motor and sensory function within normal limits, strength symmetrical , no focal deficits Psych-normal affect, normal mood Discharge Data Allergies Allergy/AdvReac Type Severity Reaction Status Date / Time bee venom protein (honey bee) Allergy Unknown LOCAL Verified 09/15/22 14:19 SWELLING diltiazem Allergy Unknown REDNESS Verified 09/15/22 14:19 "MADE ME LOOK LIKE A STRAWBERRY" Consultations 09/15/22 14:02 ED Decision to Admit Stat 09/15/22 15:02 Consult Podiatry Routine Ordered Studies 09/16/22 arterial duplex LE RT Routine Hospital Course (1) Cellulitis of toe of right foot: The patient underwent debridement of the right forefoot yesterday. Postoperative day 1. Cultures are pending. He has been treated with daptomycin and Zosyn. Cultures are pending. He will be discharged home on Augmentin and follow-up with his providers as soon as possible. Antibiotic can be adjusted according to culture results. Arterial Doppler study indicates underlying circulatory disease that can be addressed as an outpatient. (2) Neuropathic foot ulcer: Local care. Outpatient treatment (3) Restless leg syndrome: Stable. Continue ropinirole (4) BPH (benign prostatic hyperplasia): Stable. Continue tamsulosin (5) Chronic respiratory failure with hypoxia: Stable. Baseline 2-3 LPM O2 at rest (6) Stage 4 very severe COPD by GOLD classification: Stable. Continue routine inhalers, continue azithromycin 3x weekly Plan VTE Prophylaxis - Lovenox 40mg SQ daily Diet - heart healthy Disposition -Home today, September 16, on Augmentin. Follow-up with providers to review cultures and adjust antibiotics if needed. Total Time Total Time Spent Total Time Spent (In Minutes): 45 minutes Discharge Plan Discharge Items Patient Disposition: Home - Self-Care Reason For Visit: 1ST TOE CELLULITIS Discharge Diagnosis: Cellulitis right forefoot Activity: Resume your previous activity Activity Comment: Wear walking boot until seen by podiatry or PCP Non-emergency contact: Primary Care Provider Call non-emergency contact if: you have any medication questions and your symptoms worsen Follow-up/Referrals: Aggie Mccollum MD [Primary Care Provider] - Diet: Regular and Heart Healthy Addtl Attending Provider Instructions: Take antibiotic twice daily as directed. Wear walking boot until seen by PCP or podiatry Pending Studies at Discharge: Yes Studies:: Culture results from right foot Stand-Alone Forms: [employer], Smoking Cessation Medications and DC Order Prescriptions: New amoxicillin-pot clavulanate 875-125 mg tablet 1 tab PO BID Qty: 20 0RF Continued (DME) Oxygen Home Liters Per Minute See Rx Instructions .Route Qty: 1 0RF Rx Instructions: 3L continous via NC, ok to titrate up to 5L with activity ropinirole 0.5 mg tablet 0.5 mg PO PM Qty: 90 3RF miscellaneous medical supply Misc 1 ea miscellaneous DAILY Qty: 1 0RF Rx Instructions: Patient needs a new O2 base concentrator miscellaneous medical supply Misc 1 ea miscellaneous DAILY Qty: 1 0RF Rx Instructions: Patient needs a new portable O2 concentrator levocetirizine 5 mg tablet 5 mg PO DAILY PRN (Reason: allergy symptoms) Qty: 90 0RF Rx Instructions: Take daily for 10 days then PRN omeprazole 40 mg capsule,delayed release(DR/EC) 40 mg PO DAILY Qty: 90 3RF metoprolol succinate [Toprol XL] 50 mg tablet extended release 24 hr 50 mg PO QAM Qty: 90 3RF albuterol sulfate 90 mcg/actuation HFA aerosol inhaler 2 puff INH Q4H PRN (Reason: shortness of breath or wheezing) Qty: 3 1RF azithromycin 250 mg tablet 250 mg PO .COMPLEX Qty: 36 3RF Rx Instructions: 250 mg PO 1 tab p.o. on [id number]; hydrocortisone [Anti-Itch (HC)] 1 % cream 1 applic topical BID PRN (Reason: Itching) triamcinolone acetonide 0.025 % ointment 1 applic topical PRN ipratropium-albuterol 0.5 mg-3 mg(2.5 mg base)/3 mL solution for nebulization 3 ml INH QID PRN (Reason: shortness of breath or wheezing) Qty: 1080 1RF cholecalciferol (vitamin D3) 50 mcg (2,000 unit) capsule 50 mcg PO QAM aspirin [Adult Low Dose Aspirin] 81 mg tablet,delayed release (DR/EC) 81 mg PO QAM multivitamin Tablet 1 tab PO QAM Mucinex 1,200 mg Tablet Extended Release 12hr 1,200 mg PO BID atorvastatin 10 mg tablet 10 mg PO QAM tamsulosin 0.4 mg capsule 0.4 mg PO QAM Trelegy Ellipta 200-62.5-25 mcg blister with device 1 inh inhalation QAM benzonatate 100 mg capsule 100 mg PO TID PRN (Reason: cough) Qty: 20 0RF Discharge Orders: Discharge Order (Routine); Ordered 09/16/22 Ordered By: Noam Sanchez Admission Data Admit Date/Time: 09/15/22 15:11 Attending Provider: Noam Sanchez Admit Provider: Tevin Null Primary Care Provider: Aggie Mccollum Other Providers: Tevin Null ; Damian Hassan Coding Level of Care Code 78689 INP/OBS DISCH >30 MIN Diagnoses Cellulitis of toe of right foot L03.031 Neuropathic foot ulcer L97.509 Restless leg syndrome G25.81 BPH (benign prostatic hyperplasia) N40.0 Chronic respiratory failure with hypoxia J96.11 Stage 4 very severe COPD by GOLD classification J44.9
[2022-09-16] MEDS ORDERED: DAPTOmycin 350 MG in SYRINGE 0 ML IV SCH (14:00)
[2022-09-17] MEDS ORDERED: AZITHROMYCIN 250 MG TAB PO SCH (09:00)
== END 2022-09-16 17:00 | disposition home or self-care (01) ==
LOC: 3N 12:18 → ED 12:18 → SUATTDRO 15:11 → 3N 16:39

== ENCOUNTER 2023-03-05 18:26 | Inpatient (IN) ==
--- NOTE | 2023-03-05 18:42 | ED Triage Note ---
Date of Service March 05, 2023 Provider in Triage Author: John Villavicencio History of Present Illness This patient was briefly evaluated while in triage. An abbreviated physical exam was performed. This patient is a 67-year-old Male who presents to the ED for evaluation of humberto thing issues. "I have stuff down in my lungs". Follow up with PCP a few days ago and started on Augmentin and Prednisone initially, and changed to Levaquin yesterday. Saw Dr Seo of pulmonology this week and PFT's showed significant disease. Wears O2 all the time, and currently on 3L. Physical Exam Limited Triage Exam: VITALS: Vitals are noted on the nurse's note and reviewed by myself. Vital signs stable. GENERAL: White male who appears unwell on arrival. Wet cough noted. HEART: Regular rate and rhythm without murmurs gallops or rubs. LUNGS: Course and wet sounding. NEURO: Patient was alert and oriented to person place and time. CN II through XII grossly intact. Initial orders for labs and / or imaging were placed and patient was placed in the waiting area until a bed is available. Please see further documentation for the full ED course. MDM / Impression Impression Impression: COVID-19, Pulmonary emphysema, Respiratory syncytial virus (RSV), Respiratory failure Impression: Pulmonary emphysema Qualifiers: Emphysema type: unspecified Qualified Code(s): J43.9 - Emphysema, unspecified Respiratory failure Qualifiers: Chronicity: acute on chronic Respiratory failure complication: hypoxia Qualified Code(s): J96.21 - Acute and chronic respiratory failure with hypoxia
--- NOTE | 2023-03-05 19:26 | XRay Report ---
XR chest 2V PA/lateral HISTORY: 67 years-old Male Dyspnea acute shortness of breath COMPARISON: 05/24/2022 TECHNIQUE: PA and lateral views of the chest FINDINGS: Cardiomediastinal and hilar silhouettes are unchanged. Right upper lung surgical suture material. Emp hysema with chronic interstitial coarsening. Hyperinflation with diaphragmatic flattening. Surgical c lips are again noted projected over the right hilum. IMPRESSION: Emphysema without acute process of the chest. ACT 112: Negative or not required by law. The above report was generated using voice recognition software. It may contain grammatical, syntax o r spelling errors. Electronically signed by: Bernard Mendoza M.D. 03/05/2023 7:25 PM
[2023-03-05 20:08] LABS: Basophils # (auto) 0.01 K/uL (0.00-0.20); Basophils % (auto) 0.1 %; Hematocrit (blood only) 40.9 % (42.0-52.0); Immature Granulocytes # (auto) 0.08 K/uL (0.01-0.20); Lymphocytes # (auto) 0.94 K/uL (1.20-3.40); Lymphocytes % (auto) 11.3 %; Mean Corpuscular Hemoglobin 29.7 pg (25.0-34.0); Mean Corpuscular Hgb Conc 34.2 g/dL (32.0-36.0); Mean Corpuscular Volume 86.7 fL (80.0-100.0); Mean Platelet Volume 10.2 fL (9.4-12.4); Monocytes # (auto) 0.67 K/uL (0.11-0.59); Neutrophils # (auto) 6.64 K/uL (1.40-6.50); Neutrophils % (auto) 79.6 %; Platelet Count 251 K/uL (130-400); RDW Coefficient of Variation 13.1 % (11.5-14.5); Red Blood Count 4.72 M/uL (4.70-6.10); White Blood Count 8.34 K/ul (4.8-10.8)
[2023-03-05 20:23] LABS: Base Excess VBG 9.5 mEq/L; HCO3 VBG 37 mmol/L; Oxygen Saturation VBG 67.2 %; PCO2 VBG 59 mmHg (38-50); PO2 VBG 40 mmHg
[2023-03-05 20:25] LABS: Alanine Aminotransferase 17 U/L (7-52); Albumin Globulin Ratio 1.3 (0.9-2); Albumin Level 4.2 gm/dl (3.4-5.0); Alkaline Phosphatase 79 U/L (34-104); Anion Gap 7 (3-11); Aspartate Aminotransferase 19 U/L (13-39); BUN Creatinine Ratio 20.2 (10-20); Bilirubin,Total 0.3 mg/dl (0.2-1.0); Blood Urea Nitrogen 25 mg/dl (6-23); Calcium 9.9 mg/dl (8.6-10.3); Carbon Dioxide 32 mmol/L (21-32); Chloride 99 mmol/L (98-107); Creatinine Clr Calc Pharmacy 74.6 ml/min; Est GFR (African American) 69.3 ml/min; Est GFR (Non-African American) 59.8 ml/min; Globulin 3.3 gm/dl (2.5-4.0); Glucose 117 mg/dl (70-99(Fasting)); Potassium 4.2 mmol/L (3.5-5.1); Sodium 138 mmol/L (136-145); Total Protein 7.5 gm/dl (6.0-8.3)
[2023-03-05 20:32] LABS: Troponin I High Sensitivity 4.5 pg/ml (0-20)
[2023-03-05 20:41] LABS: Partial Thromboplastin Ratio 0.9; Partial Thromboplastin Time 26 Seconds (21-31); Prothrombin Time 10.6 Seconds (9.0-12.0)
[2023-03-05 20:52] LABS: Adenovirus PCR Not Detected (NotDetected); Bordetella parapertussis PCR Not Detected (NotDetected); Bordetella pertussis PCR Not Detected (NotDetected); Chlamydia pneumoniae PCR Not Detected (NotDetected); Coronavirus 229E PCR Not Detected (NotDetected); Coronavirus HKU1 PCR Not Detected (NotDetected); Coronavirus NL63 PCR Not Detected (NotDetected); Coronavirus OC43PCR Not Detected (NotDetected); Human Metapneumovirus PCR Not Detected (NotDetected); Influenza A PCR Not Detected (NotDetected); Influenza B PCR Not Detected (NotDetected); Mycoplasma pneumoniae PCR Not Detected (NotDetected); Parainfluenza Virus 1 PCR Not Detected (NotDetected); Parainfluenza Virus 2 PCR Not Detected (NotDetected); Parainfluenza Virus 3 PCR Not Detected (NotDetected); Parainfluenza Virus 4 PCR Not Detected (NotDetected); Rhinovirus/Enterovirus PCR Not Detected (NotDetected)
[2023-03-05 20:53] LABS: Coronavirus CoV-2 (COVID19)PCR DETECTED (NotDetected); Respiratory Syncytial VirusPCR DETECTED (NotDetected)
--- NOTE | 2023-03-05 21:20 | Emergency Department Note ---
Impression & Plan COVID-19, Pulmonary emphysema, Respiratory syncytial virus (RSV), Respiratory failure ED Provider Note Provider: John Villavicencio MD DATE OF SERVICE: 03/05/2023 CHIEF COMPLAINT: Cough, short of breath HISTORY OF PRESENT ILLNESS: Patient is a 67-year-old gentleman chronic respiratory failure on 3 L of oxygen with history of COPD follows with pulmonary medicine presenting here today stating for about the last 10 days or so he has had cough and cold symptoms. Reports he had a cough that is worsened over the last 4 to 5 days. initially ill but she is improved. Patient on chronic 3 L of oxygen. Has noted his oxygen at home when he gets up to walk around drops into the 60s and 70s SpO2. Shortness of breath and now more of a rattling cough. Minimally productive. A bit of slight pain in the chest. Denies significant abdominal pain or nausea vomiting or diarrhea. Little bit of chronic fatigue. Denies significant new leg swelling with some chronic mild leg swelling. Has talked with his doctor and been on prednisone, Tessalon Perles, and initially Augmentin since Tuesday and then Levaquin since yesterday. Negative COVID test on the . PAST MEDICAL HISTORY: As noted above MEDICATIONS: Reviewed home medications SOCIAL HISTORY: Distant former smoker, PHYSICAL EXAM: GENERAL: alert and oriented in no acute distress on stretcher Head: normocephalic and atraumatic EYES: No injection, discharge or icterus. NECK: Trachea midline. ENT: Mucous membranes pink and moist. LUNGS: Airway patent. No retractions. Breath sounds expiratory wheeze and audibly in the room with deep rattling cough. HEART: Regular rate and rhythm. No chest wall tenderness ABDOMEN: Soft and non-tender, without guarding or rebound. SKIN: Acyanotic, warm, dry, without rashes EXTREMITIES: Without significant tenderness 1+ edema bilaterally NEUROLOGICAL: No focal deficits. No aphasia. No facial droop or slurred speech. Ambulatory. EK bpm normal sinus rhythm. No PVC or PAC. No acute ST segment elevation or depression with a QTc of 410. CONTINUOUS CARDIAC MONITORING: was ordered and showed a heart rate of 80s-90s bpm in normal sinus rhythm Patient's laboratory studies and imaging reviewed. Differential includes Reactive airway disease, pneumonia, pneumothorax, COPD, CHF, infections, cardiac ischemia, pulmonary embolism, musculoskeletal, gastrointestinal, as well as other pathologies. IMPRESSION/MEDICAL DECISION MAKING: Patient presents with approximate 10 days of symptoms of URI in nature. Chronic swelling of legs is at baseline. No significant GI or abdominal symptoms. Deep rattling cough. History of COPD. On chronic 3 L of oxygen. Desatting at home by his report and with amatory trial here on his own 3 L desats into the mid 80s and becomes more short of breath. VBG here without significant acute hypercarbia or acidosis. Doubt this represents acute VTE with positive viral testing for both COVID-19 as well as RSV. Do not have the COVID booster this year but is vaccinated previously for COVID. COVID in 2020 was not severe by his report. No fevers reported. EKG and troponin sent and reassuring. I doubt this represents heart failure with a normal BNP. No evidence of acute renal failure or electrolyte abnormality. No significant leukocytosis. No feel strongly about continuing antibiotics at this time though he is chronically on azithromycin 3 times a week. Will give a small DuoNeb here and a dose of dexamethasone given his worsened respiratory status with COVID-19. Chest x-ray two-view completed by radiology negative for pneumonia only emphysematous processes per report. Combination of his underlying lung disease with RSV and COVID contributing to his breathing and fatigue. Given the fact that he desats so severely on his home 3 L discussed with him staying for further evaluation and care here. Discussed with the hospitalist team DIAGNOSIS: COVID-19, RSV, acute on chronic hypoxic respiratory failure, COPD DISPOSITION: Hospitalist will evaluate Patient was agreeable with this plan. Past Med/Surg History Medical History (Updated 03/05/23 @ 21:36 by John Villavicencio M.D.) Encounter for pre-operative examination Neuropathy Arthritis History of anemia Elevated cholesterol History of lung cancer RUL, s/p lobectomy - [facility], 2011>chemo and radiation Vitamin D deficiency BPH (benign prostatic hyperplasia) Lucila I pt reports tachycardia>reason for metoprolol H/O deep venous thrombosis 2011>when going through chemo (was on coumadin for years) Chronic respiratory failure with hypoxia Periodic limb movement disorder Dependence on continuous supplemental oxygen wears 2-3l nc cont. "will bump up if needed" H/O testicular mass benign Peyronie's disease Restless leg syndrome Stage 4 very severe COPD by GOLD classification Surgical History History of surgery on lower extremity left (hardware intact) History of lumbar surgery laminectomy History of cystoscopy History of esophagogastroduodenoscopy (EGD) History of colonoscopy History of tooth extraction History of tonsillectomy History of lumbar laminectomy History of lung surgery RUE lobectomy r/t lung cancer Hx of fusion of cervical spine good rom Hx of cholecystectomy (1990) Family History Father Stroke syndrome Gallbladder disease Mother Gallbladder disease Lung disease Hypertension Cardiac disorder Congestive heart failure Denies family history of Ovarian cancer Prostate cancer Myocardial infarction Breast cancer Colorectal cancer Social History Smoking Status: Former smoker Tobacco Type: Cigarettes Cigarettes Per Day: 20-30; Second Hand Exposure: Yes (in the past); Do You Dip or Chew Tobacco: No; Hx Alcohol Use: Yes Hx Substance Use: No Preferred Language: Chinese Communication Ability: Effective Visual Impairment: No Limitations Hearing Ability: Use of Hearing Aid Retail Visual Merchandiser Required: No Beliefs That Will Affect Care: None marital status: Current Living Situation: Spouse Current Living Situation Comment: Lives with current occupational status: employed and retired 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, 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 How many Children do You have: 5 Feels Safe at Home: Yes Childhood Exposure to Second-Hand Smoke: Yes Diet: regular Diet Comment: regular Dental Care, Regularly: No Physical Activity Frequency: Does not Exercise Seatbelt Use: never Sunscreen Use: No Assistive Devices: Denture - Upper, Denture - Lower, Glasses, Hearing Aid - Bilateral, Nebulizer and Oxygen - Continuous Allergies Allergies Allergy/AdvReac Type Severity Reaction Status Date / Time diltiazem Allergy Intermediate REDNESS Verified 03/01/23 15:40 "MADE ME LOOK LIKE A STRAWBERRY" bee venom protein (honey bee) Allergy Unknown LOCAL Verified 03/01/23 15:40 SWELLING Home Meds Home Medications Medication Instructions Recorded Confirmed multivitamin 1 tab PO QAM 02/11/18 03/05/23 hydrocortisone 1 % topical cream 1 applic topical BID PRN Itching 04/01/21 03/05/23 (Anti-Itch (hydrocortisone)) aspirin 81 mg tablet,delayed 81 mg PO QPM 06/09/21 03/05/23 release (Adult Low Dose Aspirin) cholecalciferol (vitamin D3) 50 50 mcg PO QAM 06/09/21 03/05/23 mcg (2,000 unit) capsule triamcinolone acetonide 0.025 % 1 applic topical PRN 02/08/22 03/05/23 topical ointment atorvastatin 10 mg tablet 10 mg PO HS 09/15/22 03/05/23 guaifenesin 1,200 mg tablet, 1,200 mg PO BID 09/15/22 03/05/23 extended release 12 hr (Mucinex) tamsulosin 0.4 mg capsule 0.4 mg PO QAM 09/15/22 03/05/23 Oxygen Home 09/17/22 03/05/23 Previous Rx's Medication Instructions Recorded ipratropium 0.5 mg-albuterol 3 mg 3 ml inhalation QID PRN shortness 01/13/22 (2.5 mg base)/3 mL nebulization of breath or wheezing #1,080 vials soln albuterol sulfate 90 mcg/actuation 2 puff inhalation Q4H PRN 07/20/22 aerosol inhaler shortness of breath or wheezing #3 Inhalers azithromycin 250 mg tablet 250 mg PO .COMPLEX #36 tabs 07/20/22 metoprolol succinate 50 mg 50 mg PO QAM #90 tabs 07/30/22 tablet,extended release 24 hr (Toprol XL) fluticasone fur. 200 mcg-umeclid 1 inh inhalation QAM #3 Inhalers 12/17/22 62.5 mcg-vilant 25 mcg inhalat.powder (Trelegy Ellipta) Nitroglycerin 0.2% 1 tube ointment See Rx Instructions topical 01/12/23 .COMPLEX #1 tube meclizine 25 mg tablet See Rx Instructions PO TID PRN 01/12/23 dizziness or vertigo #30 tabs ropinirole 0.5 mg tablet 0.5 mg PO PM #90 tabs 02/15/23 benzonatate 200 mg capsule 200 mg PO TID PRN cough #20 caps 03/01/23 prednisone 10 mg tablet See Rx Instructions PO DAILY #30 03/01/23 tabs levofloxacin 500 mg tablet 500 mg PO DAILY #10 tabs 03/04/23 Results & Data (ED) Vital Signs Vital Signs - 24 hr 03/05/23 18:40 03/05/23 18:44 03/05/23 21:25 Temperature 36.7 C Temperature Source Temporal Artery Scan Pulse Rate 108 H Pulse Rate [Apical] Pulse Rhythm Pulse Rhythm [Apical] Pulse Strength [Apical] Respiratory Rate 23 Respiratory Effort / Characteristics Labored Respiratory Depth Normal Respiratory Pattern Blood Pressure 134/58 L Blood Pressure Mean 83 Pulse Oximetry 96 79 L Oxygen Delivery Method Nasal Cannula Nasal Cannula Nasal Cannula Oxygen Flow Rate 3 3 3 Sepsis Recent Fever Within 48 Hours No Sepsis New/Unexplained Change in Mental Status No Sepsis Action Taken by Nursing Adv Provider Notified Pulse Oximetry Post Tiitration 96 03/05/23 21:27 03/05/23 21:29 Temperature Temperature Source Pulse Rate 88 Pulse Rate [Apical] 89 Pulse Rhythm Regular Pulse Rhythm [Apical] Regular Pulse Strength [Apical] Normal Respiratory Rate 23 23 Respiratory Effort / Characteristics Spontaneous Respiratory Depth Normal Respiratory Pattern Regular Blood Pressure Blood Pressure Mean Pulse Oximetry 82 L 99 Oxygen Delivery Method Nasal Cannula Nasal Cannula Oxygen Flow Rate 3 Sepsis Recent Fever Within 48 Hours Sepsis New/Unexplained Change in Mental Status Sepsis Action Taken by Nursing Pulse Oximetry Post Tiitration Laboratory Data 03/05/23 19:49 03/05/23 19:49 Lab Results 03/05/23 03/05/23 Range/Units 19:49 20:15 WBC 8.34 (4.8-10.8) K/ul RBC 4.72 (4.70-6.10) M/uL Hgb 14.0 (14.0-18.0) g/dl Hct 40.9 L (42.0-52.0) % MCV 86.7 (80.0-100.0) fL MCH 29.7 (25.0-34.0) pg MCHC 34.2 (32.0-36.0) g/dL RDW Std Deviation 41.0 (36.4-46.3) fL RDW Coeff of Dinesh 13.1 (11.5-14.5) % Plt Count 251 (130-400) K/uL MPV 10.2 (9.4-12.4) fL Immature Gran % (Auto) 1.0 % Neut % (Auto) 79.6 % Lymph % (Auto) 11.3 % Gaston % (Auto) 8.0 % Eos % (Auto) 0.0 % Baso % (Auto) 0.1 % Neut # (Auto) 6.64 H (1.40-6.50) K/uL Lymph # (Auto) 0.94 L (1.20-3.40) K/uL Gaston # (Auto) 0.67 H (0.11-0.59) K/uL Eos # (Auto) 0.00 (0.00-0.50) K/uL Baso # (Auto) 0.01 (0.00-0.20) K/uL Immature Gran # (Auto) 0.08 (0.01-0.20) K/uL PT 10.6 (9.0-12.0) Seconds INR 1.0 (0.9-1.1) APTT 26 (21-31) Seconds PTT Ratio 0.9 VBG pH 7.40 (7.36-7.41) VBG pCO2 59 H (38-50) mmHg VBG pO2 40 mmHg VBG HCO3 37 mmol/L VBG O2 Saturation 67.2 % VBG Base Excess 9.5 mEq/L Sodium 138 (136-145) mmol/L Potassium 4.2 (3.5-5.1) mmol/L Chloride 99 (98-107) mmol/L Carbon Dioxide 32 (21-32) mmol/L Anion Gap 7 (3-11) BUN 25 H (6-23) mg/dl Creatinine 1.24 (0.6-1.4) mg/dl Est Cr Clr Drug Dosing 74.6 ml/min Est GFR ( Amer) 69.3 ml/min Est GFR (Non-Af Amer) 59.8 ml/min BUN/Creatinine Ratio 20.2 H (10-20) Glucose 117 H (70-99(Fasting)) mg/dl Lactate 1.6 (0.4-2.0) mmol/L Calcium 9.9 (8.6-10.3) mg/dl Magnesium 2.0 (1.7-2.4) mg/dl Total Bilirubin 0.3 (0.2-1.0) mg/dl AST 19 (13-39) U/L ALT 17 (7-52) U/L Alkaline Phosphatase 79 (34-104) U/L Troponin I High Sens 4.5 (0-20) pg/ml B-Natriuretic Peptide 15 (0-100) pg/ml Total Protein 7.5 (6.0-8.3) gm/dl Albumin 4.2 (3.4-5.0) gm/dl Globulin 3.3 (2.5-4.0) gm/dl Albumin/Globulin Ratio 1.3 (0.9-2) Adenovirus (PCR) Not Detected (NotDetected) B. pertussis DNA (PCR) Not Detected (NotDetected) B.parapertussis DNA PCR Not Detected (NotDetected) C. pneumoniae DNA (PCR) Not Detected (NotDetected) Coronavirus OC43 (PCR) Not Detected (NotDetected) Coronavirus HKU1 (PCR) Not Detected (NotDetected) Coronavirus 229E (PCR) Not Detected (NotDetected) SARS-CoV-2 (PCR) DETECTED A* (NotDetected) Coronavirus NL63 (PCR) Not Detected (NotDetected) Human Metapneumovir PCR Not Detected (NotDetected) Influenza Type A (PCR) Not Detected (NotDetected) Influenza Type B (PCR) Not Detected (NotDetected) M. pneumoniae (PCR) Not Detected (NotDetected) Parainfluenza 1 (PCR) Not Detected (NotDetected) Parainfluenza 2 (PCR) Not Detected (NotDetected) Parainfluenza 3 (PCR) Not Detected (NotDetected) Parainfluenza 4 (PCR) Not Detected (NotDetected) RSV (PCR) DETECTED A* (NotDetected) Entero/Rhino (PCR) Not Detected (NotDetected) Administered Medications Discontinued Medications Albuterol (Albut/Ipratrop 3mg/0.5mg Neb 3 Ml Vial) 3 ml NEB NOW STA; Protocol Stop: 03/05/23 21:22 Last Admin: 03/05/23 21:29 Dose: 3 ml Documented By: MROGAN Dexamethasone Sodium Phosphate (DexamethasonePf 10 Mg/Ml Vial) 6 mg IV NOW ONE Stop: 03/05/23 21:22 Last Admin: 03/05/23 21:30 Dose: 6 mg Documented By: MORGAN Imaging Data Radiologist's Impression: Chest X-Ray 03/05/23 18:42 XR chest 2V PA/lateral HISTORY: 67 years-old Male Dyspnea acute shortness of breath COMPARISON: 05/24/2022 TECHNIQUE: PA and lateral views of the chest FINDINGS: Cardiomediastinal and hilar silhouettes are unchanged. Right upper lung surgical suture material. Emphysema with chronic interstitial coarsening. Hyperinflation with diaphragmatic flattening. Surgical clips are again noted projected over the right hilum. IMPRESSION: Emphysema without acute process of the chest. ACT 112: Negative or not required by law. The above report was generated using voice recognition software. It may contain grammatical, syntax or spelling errors. Electronically signed by: Bernard Mendoza M.D. 03/05/2023 7:25 PM Discharge Plan Visit Data Chief Complaint: Shortness of Breath/Dyspnea Stated Complaint: SOB, CHEST, COUGH ED Provider: John Villavicencio Discharge Problem: COVID-19, Pulmonary emphysema, Respiratory syncytial virus (RSV), Respiratory failure Patient Disposition: Being Evaluated by Hospitalist Condition: Fair Discharge Instructions Interventions: ED Discharge Assessment Last Done: 03/06/23 00:18 Discharge Problem: Pulmonary emphysema Qualifiers: Emphysema type: unspecified Qualified Code(s): J43.9 - Emphysema, unspecified Respiratory failure Qualifiers: Chronicity: acute on chronic Respiratory failure complication: hypoxia Q ualified Code(s): J96.21 - Acute and chronic respiratory failure with hypoxia
[2023-03-05] MEDS ORDERED: ALBUT/IPRATROP 3MG/0.5MG NEB 3 ML VIAL NEB STA (21:21)
[2023-03-05] MEDS ORDERED: dexAMETHasone**PF** 10 MG/ML VIAL IV ONE (21:21)
--- NOTE | 2023-03-05 22:19 | History & Physical Report ---
Date of Service March 05, 2023 Assessment & Plan (1) COVID-19: Plan: 67yo male presenting with acute on chronic respiratory failure with hypoxia. Patient with underlying oxygen dependent COPD on 3L continuous oxygen. He presents with hypoxia. Found to have Covid-19 infection and RSV. Saturations are appropriate at rest with desaturation with movement. Procalcitonin is NEGATIVE as is BNP and CRP. VBG with chronic/compensated respiratory acidosis. D-dimer is WNL at 290 -Admit to medical -Maintain isolation precautions -Treatment with Solumedrol 40mg IV TID -Remdesivir per protocol -Tylenol as needed for pain or fever -Albuterol as needed for SOB -Lovenox 40mg for DVT prophylaxis -Supplemental O2 as needed (2) Respiratory syncytial virus (RSV): Plan: Contributing to patient's SOB and hypoxia -Supportive care -Albuterol PRN (3) COPD with acute exacerbation: Plan: Acute on chronic hypoxic respiratory failure - severe O2 dependent COPD + RSV + Covid -Solumedrol 40mg IV TID -DuoNeb q 4 hours -Albuterol q 2 hours PRN -Mucinex 1200mg po BID -Doxycycline 100mg IV BID -Continue Umeclidinium/Vilanterol (LAMA/LABA) -Continue Fluticasone (ICS) -Flutter valve QID (4) Cardiomyopathy, nonischemic: Plan: Appears well compensated -Monitor -Continue metoprolol XL -Continue ASA (5) Elevated cholesterol: Plan: Chronic. Stable -Continue Atorvastatin (6) BPH (benign prostatic hyperplasia): Plan: Chronic. Stable -Continue Flomax History of Present Illness Chief Complaint: shortness of breath Primary Care Provider: Aggie Mccollum MD Rodney Payan is a pleasant 67yo male presenting with shortness of breath. Patient with history of severe COPD (PFTs on 02/26/23 with FEV1 of 33% predicted - Patient follows with [facility]), chronic hypoxic respiratory failure on 3L of O2 at home and chronic Azithromycin therapy M//. 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 He reports getting a URI approximately 3 weeks ago. His symptoms were initially mild. About 10 days ago he began to develop worsening chest tightness, wheeze and shortness of breath. He was seen by his PCP and prescribed Augmentin, a Prednisone taper and Tessalon. He had Covid-19 testing at that time 03/01/23 which was NEGATIVE on a lab test as well as a home test. He took these medications with no improvement. On 03/04/23 the Augmentin was changed to Levaquin. Patient reports that his symptoms have continued to get worse - increased cough and shortness of breath. His oxygen saturation at rest has been fairly normal, however, with ambulation his saturations drop into the 60's and 70's. He denies fever or chills. Denies chest pain or palpitations. He has stable bilateral LE edema which has not changed. He has been taking DuoNebs/Albuterol every 3-4 hours with no relief. In the ER he is hypoxic to 85% on his 3L NC ER Course: Dexamethasone 6mg IV Albuterol 3mL neb Allergies Allergy/AdvReac Type Severity Reaction Status Date / Time diltiazem Allergy Intermediate REDNESS Verified 03/01/23 15:40 "MADE ME LOOK LIKE A STRAWBERRY" bee venom protein (honey bee) Allergy Unknown LOCAL Verified 03/01/23 15:40 SWELLING Home Medications Medication Instructions Recorded Confirmed Type multivitamin 1 tab PO QAM 02/11/18 03/05/23 History hydrocortisone 1 % topical cream 1 applic topical BID PRN Itching 04/01/21 03/05/23 History (Anti-Itch (hydrocortisone)) aspirin 81 mg tablet,delayed 81 mg PO QPM 06/09/21 03/05/23 History release (Adult Low Dose Aspirin) cholecalciferol (vitamin D3) 50 50 mcg PO QAM 06/09/21 03/05/23 History mcg (2,000 unit) capsule ipratropium 0.5 mg-albuterol 3 mg 3 ml inhalation QID PRN shortness 01/13/22 03/05/23 Rx (2.5 mg base)/3 mL nebulization of breath or wheezing #1,080 vials soln triamcinolone acetonide 0.025 % 1 applic topical PRN 02/08/22 03/05/23 History topical ointment albuterol sulfate 90 mcg/actuation 2 puff inhalation Q4H PRN 07/20/22 03/05/23 Rx aerosol inhaler shortness of breath or wheezing #3 Inhalers azithromycin 250 mg tablet 250 mg PO .COMPLEX #36 tabs 05/16/23 12/30/23 Rx metoprolol succinate 50 mg 50 mg PO QAM #90 tabs 07/30/22 03/05/23 Rx tablet,extended release 24 hr (Toprol XL) atorvastatin 10 mg tablet 10 mg PO HS 09/15/22 03/05/23 History guaifenesin 1,200 mg tablet, 1,200 mg PO BID 09/15/22 03/05/23 History extended release 12 hr (Mucinex) tamsulosin 0.4 mg capsule 0.4 mg PO QAM 09/15/22 03/05/23 History Oxygen Home 09/17/22 03/05/23 History fluticasone fur. 200 mcg-umeclid 1 inh inhalation QAM #3 Inhalers 12/17/22 03/05/23 Rx 62.5 mcg-vilant 25 mcg inhalat.powder (Trelegy Ellipta) Nitroglycerin 0.2% 1 tube ointment See Rx Instructions topical 01/12/23 03/05/23 Rx .COMPLEX #1 tube meclizine 25 mg tablet See Rx Instructions PO TID PRN 01/12/23 03/05/23 Rx dizziness or vertigo #30 tabs ropinirole 0.5 mg tablet 0.5 mg PO PM #90 tabs 02/15/23 03/05/23 Rx benzonatate 200 mg capsule 200 mg PO TID PRN cough #20 caps 03/01/23 03/05/23 Rx prednisone 10 mg tablet See Rx Instructions PO DAILY #30 03/01/23 03/05/23 Rx tabs levofloxacin 500 mg tablet 500 mg PO DAILY #10 tabs 03/04/23 03/05/23 Rx Past Med/Surg History Medical History (Updated 03/06/23 @ 01:31 by Fely Yeh DO) BPH (benign prostatic hyperplasia) Neuropathy Arthritis History of anemia Elevated cholesterol History of lung cancer RUL, s/p lobectomy - [facility], 2011>chemo and radiation Vitamin D deficiency Mobitz I pt reports tachycardia>reason for metoprolol H/O deep venous thrombosis 2011>when going through chemo (was on coumadin for years) Chronic respiratory failure with hypoxia Periodic limb movement disorder Dependence on continuous supplemental oxygen wears 2-3l nc cont. "will bump up if needed" H/O testicular mass benign Peyronie's disease Restless leg syndrome Stage 4 very severe COPD by GOLD classification Surgical History History of surgery on lower extremity left (hardware intact) History of lumbar surgery laminectomy History of cystoscopy History of esophagogastroduodenoscopy (EGD) History of colonoscopy History of tooth extraction History of tonsillectomy History of lumbar laminectomy History of lung surgery RUE lobectomy r/t lung cancer Hx of fusion of cervical spine good rom Hx of cholecystectomy (1990) Family History Father Stroke syndrome Gallbladder disease Mother Gallbladder disease Lung disease Hypertension Cardiac disorder Congestive heart failure Denies family history of Ovarian cancer Prostate cancer Myocardial infarction Breast cancer Colorectal cancer Social History Smoking Status: Former smoker Tobacco Type: Cigarettes Cigarettes Per Day: 20-30; Second Hand Exposure: Yes; Do You Dip or Chew Tobacco: No; Hx Alcohol Use: Yes Alcohol type: beer Hx Substance Use: No Preferred Language: Armenian Communication Ability: Effective Visual Impairment: No Limitations Hearing Ability: Use of Hearing Aid Armor Reconnaissance Specialist Required: No Beliefs That Will Affect Care: None marital status: Current Living Situation: Spouse Current Living Situation Comment: Lives with current occupational status: employed and retired 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, 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 How many Children do You have: 5 Feels Safe at Home: Yes Childhood Exposure to Second-Hand Smoke: Yes Diet: regular Diet Comment: regular Dental Care, Regularly: No Physical Activity Frequency: Does not Exercise Seatbelt Use: never Sunscreen Use: No Assistive Devices: Denture - Upper, Denture - Lower, Glasses, Hearing Aid - Bilateral and Scooter/Electric Scooter Review of Systems Review of Systems: All systems reviewed & are unremarkable except as noted in HPI & below Physical Exam Physical Exam: General: patient resting comfortably, NAD, non-toxic in appearance, AA&O x 4, NC in place Skin: warm, dry, intact, no rashes or lesions HEENT: NC/AT, PERRL, EOMI, anicteric sclera, conjunctiva without injection, external ear normal to inspection and nontender, nares patent, moist mucus membranes, dentition intact, no oropharyngeal lesions, neck supple, trachea midline, no LAD, no thyromegaly, no JVD Heart: +S1/S2, regular, no m/r/g Lungs: diffusely coarse breath sounds bilaterally with rhonchi and inspiratory and expiratory wheezing, no crackles Abd: +BS, soft, NT/ND, no masses/organomegaly/ascites Ext: warm, 2+ pulses in UE/LE bilaterally, no clubbing/cyanosis or edema Neuro: nonfocal, patient AA&O x 4, speech intact, no facial droop, moving all extremities on command with equal strength 5/5 Results & Data Results & Data Vital Signs (Past 12 Hours) Vital Signs Temp Pulse Pulse Resp BP Pulse Ox O2 Del Method 03/05/23 21:29 88 23 99 Nasal Cannula 03/05/23 21:27 89 23 82 L Nasal Cannula 03/05/23 21:25 79 L Nasal Cannula 03/05/23 18:44 Nasal Cannula 03/05/23 18:40 36.7 C 108 H 23 134/58 L 96 Nasal Cannula O2 Flow Rate 03/05/23 21:29 3 03/05/23 21:27 03/05/23 21:25 3 03/05/23 18:44 3 03/05/23 18:40 3 Laboratory Results Laboratory Results WBC 8.34 K/ul (4.8-10.8) 03/05/23 19:49 RBC 4.72 M/uL (4.70-6.10) 03/05/23 19:49 Hgb 14.0 g/dl (14.0-18.0) 03/05/23 19:49 Hct 40.9 % (42.0-52.0) L 03/05/23 19:49 MCV 86.7 fL (80.0-100.0) 03/05/23 19:49 MCH 29.7 pg (25.0-34.0) 03/05/23 19:49 MCHC 34.2 g/dL (32.0-36.0) 03/05/23 19:49 RDW Std Deviation 41.0 fL (36.4-46.3) 03/05/23 19:49 RDW Coeff of Dinesh 13.1 % (11.5-14.5) 03/05/23 19:49 Plt Count 251 K/uL (130-400) 03/05/23 19:49 MPV 10.2 fL (9.4-12.4) 03/05/23 19:49 Immature Gran % (Auto) 1.0 % 03/05/23 19:49 Neut % (Auto) 79.6 % 03/05/23 19:49 Lymph % (Auto) 11.3 % 03/05/23 19:49 [place] % (Auto) 8.0 % 03/05/23 19:49 Eos % (Auto) 0.0 % 03/05/23 19:49 Baso % (Auto) 0.1 % 03/05/23 19:49 Neut # (Auto) 6.64 K/uL (1.40-6.50) H 03/05/23 19:49 Lymph # (Auto) 0.94 K/uL (1.20-3.40) L 03/05/23 19:49 [place] # (Auto) 0.67 K/uL (0.11-0.59) H 03/05/23 19:49 Eos # (Auto) 0.00 K/uL (0.00-0.50) 03/05/23 19:49 Baso # (Auto) 0.01 K/uL (0.00-0.20) 03/05/23 19:49 Immature Gran # (Auto) 0.08 K/uL (0.01-0.20) 03/05/23 19:49 PT 10.6 Seconds (9.0-12.0) 03/05/23 19:49 INR 1.0 (0.9-1.1) 03/05/23 19:49 APTT 26 Seconds (21-31) 03/05/23 19:49 PTT Ratio 0.9 03/05/23 19:49 VBG pH 7.40 (7.36-7.41) 03/05/23 20:15 VBG pCO2 59 mmHg (38-50) H 03/05/23 20:15 VBG pO2 40 mmHg 03/05/23 20:15 VBG HCO3 37 mmol/L 03/05/23 20:15 VBG O2 Saturation 67.2 % 03/05/23 20:15 VBG Base Excess 9.5 mEq/L 03/05/23 20:15 Sodium 138 mmol/L (136-145) 03/05/23 19:49 Potassium 4.2 mmol/L (3.5-5.1) 03/05/23 19:49 Chloride 99 mmol/L (98-107) 03/05/23 19:49 Carbon Dioxide 32 mmol/L (21-32) 03/05/23 19:49 Anion Gap 7 (3-11) 03/05/23 19:49 BUN 25 mg/dl (6-23) H 03/05/23 19:49 Creatinine 1.24 mg/dl (0.6-1.4) 03/05/23 19:49 Est Cr Clr Drug Dosing 74.6 ml/min 03/05/23 19:49 Est GFR ( Amer) 69.3 ml/min 03/05/23 19:49 Est GFR (Non-Af Amer) 59.8 ml/min 03/05/23 19:49 BUN/Creatinine Ratio 20.2 (10-20) H 03/05/23 19:49 Glucose 117 mg/dl (70-99(Fasting)) H 03/05/23 19:49 Lactate 1.6 mmol/L (0.4-2.0) 03/05/23 19:49 Calcium 9.9 mg/dl (8.6-10.3) 03/05/23 19:49 Magnesium 2.0 mg/dl (1.7-2.4) 03/05/23 19:49 Ferritin 33.7 ng/ml (8-388) 03/05/23 19:49 Total Bilirubin 0.3 mg/dl (0.2-1.0) 03/05/23 19:49 AST 19 U/L (13-39) 03/05/23 19:49 ALT 17 U/L (7-52) 03/05/23 19:49 Alkaline Phosphatase 79 U/L (34-104) 03/05/23 19:49 Troponin I High Sens 4.5 pg/ml (0-20) 03/05/23 19:49 B-Natriuretic Peptide 15 pg/ml (0-100) 03/05/23 19:49 Total Protein 7.5 gm/dl (6.0-8.3) 03/05/23 19:49 Albumin 4.2 gm/dl (3.4-5.0) 03/05/23 19:49 Globulin 3.3 gm/dl (2.5-4.0) 03/05/23 19:49 Albumin/Globulin Ratio 1.3 (0.9-2) 03/05/23 19:49 Adenovirus (PCR) Not Detected (NotDetected) 03/05/23 19:49 B. pertussis DNA (PCR) Not Detected (NotDetected) 03/05/23 19:49 B.parapertussis DNA PCR Not Detected (NotDetected) 03/05/23 19:49 C. pneumoniae DNA (PCR) Not Detected (NotDetected) 03/05/23 19:49 Coronavirus OC43 (PCR) Not Detected (NotDetected) 03/05/23 19:49 Coronavirus HKU1 (PCR) Not Detected (NotDetected) 03/05/23 19:49 Coronavirus 229E (PCR) Not Detected (NotDetected) 03/05/23 19:49 SARS-CoV-2 (PCR) DETECTED (NotDetected) A* 03/05/23 19:49 Coronavirus NL63 (PCR) Not Detected (NotDetected) 03/05/23 19:49 Human Metapneumovir PCR Not Detected (NotDetected) 03/05/23 19:49 Influenza Type A (PCR) Not Detected (NotDetected) 03/05/23 19:49 Influenza Type B (PCR) Not Detected (NotDetected) 03/05/23 19:49 M. pneumoniae (PCR) Not Detected (NotDetected) 03/05/23 19:49 Parainfluenza 1 (PCR) Not Detected (NotDetected) 03/05/23 19:49 Parainfluenza 2 (PCR) Not Detected (NotDetected) 03/05/23 19:49 Parainfluenza 3 (PCR) Not Detected (NotDetected) 03/05/23 19:49 Parainfluenza 4 (PCR) Not Detected (NotDetected) 03/05/23 19:49 RSV (PCR) DETECTED (NotDetected) A* 03/05/23 19:49 Entero/Rhino (PCR) Not Detected (NotDetected) 03/05/23 19:49 Impressions Chest X-Ray 03/05/23 18:42 XR chest 2V PA/lateral HISTORY: 67 years-old Male Dyspnea acute shortness of breath COMPARISON: 05/24/2022 TECHNIQUE: PA and lateral views of the chest FINDINGS: Cardiomediastinal and hilar silhouettes are unchanged. Right upper lung surgical suture material. Emphysema with chronic interstitial coarsening. Hyperinflation with diaphragmatic flattening. Surgical clips are again noted projected over the right hilum. IMPRESSION: Emphysema without acute process of the chest. ACT 112: Negative or not required by law. The above report was generated using voice recognition software. It may contain grammatical, syntax or spelling errors. Electronically signed by: Bernard Mendoza M.D. 03/05/2023 7:25 PM ECG Additional Comments: EKG with NSR at 99bpm, normal axis, PG=161, QRS=74, KTp=618, no acute ischemic changes Code Status & VTE Plan VTE Prophylaxis Plan VTE Prophylaxis will be ordered: Yes PG Care Time/CCT Total # of Minutes Spent Total Time Spent with Patient: Total time spent is greater than 50% in coordination of care (as documented) at patient's floor/unit and/or counseling patient: Coding Level of Care Code 76767 INT INP/OBS CARE 3/75MIN Diagnoses COVID-19 U07.1 Respiratory syncytial virus (RSV) B33.8 COPD with acute exacerbation J44.1 Cardiomyopathy, nonischemic I42.8 Elevated cholesterol E78.00 BPH (benign prostatic hyperplasia) N40.0
[2023-03-06] MEDS ORDERED: ACETAMINOPHEN 325 MG TAB PO PRN (00:19)
[2023-03-06] MEDS ORDERED: ONDANSETRON INJ 2 MG/ML 2 ML VIAL IV PRN (00:19)
[2023-03-06] MEDS ORDERED: BENZONATATE 100 MG CAPSULE PO PRN (00:19)
[2023-03-06] MEDS ORDERED: ALBUTEROL 0.083% NEBU SOLN 3 ML VIAL NEB PRN (00:33)
[2023-03-06] MEDS ORDERED: REMDESIVIR 200 MG in SODIUM CHLORIDE 0.9% 210 ML IV ONE (00:45)
[2023-03-06 01:32] LABS: Ferritin 33.7 ng/ml (8-388)
[2023-03-06] MEDS: DOXYCYCLINE HYCLATE 100 MG in DEXTROSE 5% MINI-B 100 ML IV SCH ×2 (01:34→13:40)
[2023-03-06 01:47] LABS: C Reactive Protein < 0.50 mg/dl (0-0.5)
[2023-03-06 02:07] LABS: Hematocrit (blood only) 40.1 % (42.0-52.0); Hemoglobin 13.2 g/dl (14.0-18.0); Mean Corpuscular Hemoglobin 28.9 pg (25.0-34.0); Mean Corpuscular Hgb Conc 32.9 g/dL (32.0-36.0); Mean Corpuscular Volume 87.7 fL (80.0-100.0); Mean Platelet Volume 10.1 fL (9.4-12.4); Platelet Count 205 K/uL (130-400); RDW Standard Deviation 41.3 fL (36.4-46.3); Red Blood Count 4.57 M/uL (4.70-6.10); White Blood Count 7.55 K/ul (4.8-10.8)
[2023-03-06 02:13] LABS: BUN Creatinine Ratio 20.9 (10-20); Calcium 9.2 mg/dl (8.6-10.3); Creatinine Clr Calc Pharmacy 80.4 ml/min; Est GFR (African American) 75.9 ml/min; Est GFR (Non-African American) 65.5 ml/min; Potassium 4.3 mmol/L (3.5-5.1)
[2023-03-06 02:30] LABS: D Dimer 290 ug/L FEU (0-500)
[2023-03-06] MEDS: ENOXAPARIN INJ 40 MG/0.4 ML SYR SQ SCH (05:57)
[2023-03-06] MEDS: ALBUT/IPRATROP 3MG/0.5MG NEB 3 ML VIAL INH SCH ×4 (07:30→20:52)
[2023-03-06 08:26] LABS: Appearance Urine Clear (Clear); Bilirubin Urine Negative (Negative); Blood Urine Negative (Negative); Color Urine Yellow; Glucose Urine UA Negative (Negative); Ketones Urine Negative (Negative); Leukocyte Esterase Urine Negative (Negative); Nitrite Urine Negative (Negative); Protein Urine Negative (Negative); Urobilinogen Urine Negative (Negative)
[2023-03-06] MEDS ORDERED: NON-FORMULARY MEDICATION (Fluticasone-Umeclidin-Vilanter [Trelegy Ellipta] 200-62.5-25 mcg INH SCH (09:00)
[2023-03-06] MEDS: guaiFENesin 600 MG TABCR PO SCH ×2 (09:08→20:44)
[2023-03-06] MEDS: METOPROLOL SUCC 50MG EXT REL TAB PO SCH (09:09)
[2023-03-06] MEDS: FLUTICASONE FUROATE 200MCG 14 PUFFS/INHALER INH SCH (09:09)
[2023-03-06] MEDS: UMECLIDINIUM/VILANTEROL 62.5/25MCG 7 PUFFS/INHALER INH SCH (09:09)
[2023-03-06] MEDS: TAMSULOSIN HCL 0.4 MG CAP PO SCH (09:09)
[2023-03-06] MEDS: methylPREDNISolone 40 MG in SYRINGE 0 ML IV SCH ×3 (09:11→20:44)
--- NOTE | 2023-03-06 09:13 | Electrocardiogram Report ---
Test Reason : Blood Pressure : / mmHG Vent. Rate : 099 BPM Atrial Rate : 099 BPM P-R Int : 168 ms QRS Dur : 074 ms QT Int : 320 ms P-R-T Axes : 079 051 064 degrees QTc Int : 410 ms Normal sinus rhythm Normal ECG When compared with ECG of 15-SEP-2022 12:46, No significant change was found Confirmed by Luis Watkins ([id number]) on 03/06/2023 9:13:18 AM Referred By: REFERRED SELF Confirmed By:Luis Watkins
[2023-03-06] MEDS: ACETYLCYSTEINE 20% INHAL SOLN 4ML ***DISPENSED BY RESP. INH SCH ×2 (16:07→20:53)
--- NOTE | 2023-03-06 16:17 | Hospitalist Progress Note ---
Date of Service March 06, 2023 Assessment & Plan (1) COVID-19: Plan: 67yo male presenting with acute on chronic respiratory failure with hypoxia secondary to COVID-19. Patient with underlying oxygen dependent COPD on 3L continuous oxygen but was requiring 5 L nasal cannula here on admission. Procalcitonin is NEGATIVE as is BNP and CRP. VBG with chronic/compensated respiratory acidosis. D-dimer is WNL at 290 Slowly improving, weaned down to 2 L nasal cannula at rest, remains with significant wheezing and rhonchi throughout -Add on Mucomyst nebs twice daily -Maintain isolation precautions for COVID -Continue treatment with Solumedrol 40mg IV TID -Continue Remdesivir per protocol -Tylenol as needed for pain or fever -Albuterol as needed for SOB -Lovenox 40mg for DVT prophylaxis -Supplemental O2 as needed to keep pulse ox greater than 90% as does have severe COPD -Follow blood cultures-no growth to date -Follow sputum culture (2) Respiratory syncytial virus (RSV): Plan: Contributing to patient's SOB and hypoxia -Supportive care -Albuterol PRN (3) COPD with acute exacerbation: Plan: Acute on chronic hypoxic respiratory failure - severe O2 dependent COPD + RSV + Covid -Solumedrol 40mg IV TID -DuoNeb q 4 hours -Albuterol q 2 hours PRN -Mucinex 1200mg po BID -Doxycycline 100mg IV BID for atypical coverage -Continue Umeclidinium/Vilanterol (LAMA/LABA) -Continue Fluticasone (ICS) -Flutter valve QID (4) Cardiomyopathy, nonischemic: Plan: Appears well compensated. Echo from 04/2021 with grossly normal LV function. BNP here is normal -Monitor -Continue metoprolol XL -Continue ASA (5) Elevated cholesterol: Plan: Chronic. Stable -Continue Atorvastatin (6) BPH (benign prostatic hyperplasia): Plan: Chronic. Stable -Continue Flomax Plan Constipation-add on docusate 100 Mg p.o. twice daily DVT prophylaxis-Lovenox Disposition-continued stay, will likely need 1-2 more days in the hospital before discharge Admission and Anticipated Discharge Date Admission Date: March 05, 2023 Subjective Feeling a little bit better today but still fairly short of breath and wheezing, with cough. Feels the nebulizer treatments are helping. He is weaned down to 2 L nasal cannula at rest from 5 L on admission. Denies chest pains, denies nausea or vomiting or diarrhea. Did have a little bit of blood with his stool with straining for hard stool today. Physical Exam Constitutional: WD/WN, vitals as above Respiratory: normal respiratory effort; no cough Auscultation: + rhonchi (Diffusely) and + wheezes (Diffusely); no crackles Cardiovascular: RRR, no murmur, no edema Gastrointestinal (Abdomen): normal bowel sounds, soft, nontender, no hepatosplenomegaly Psychiatric: A+Ox3, euthymic affect Results & Data Results & Data Vital Signs (Past 12 Hours) Vital Signs Temp Pulse Resp BP Pulse Ox O2 Del Method O2 Flow Rate 03/06/23 16:09 102 H 15 99 Nasal Cannula 2 03/06/23 13:36 36.6 C 99 H 18 127/69 95 Nasal Cannula 3 03/06/23 11:57 90 94 Nasal Cannula 3 03/06/23 07:47 Nasal Cannula 5 03/06/23 07:47 36.5 C 98 H 20 123/71 97 Nasal Cannula 5 03/06/23 07:31 99 H 22 95 Nasal Cannula 4 03/06/23 04:41 92 H 22 98 Nasal Cannula 4 Laboratory Results CBC, BMP, VBG, CRP, procalcitonin, D-dimer, BNP all reviewed Blood cultures reviewed-pending Sputum culture reviewed-pending PG Care Time/CCT Total # of Minutes Spent Total Time Spent with Patient: Total time spent is greater than 50% in coordination of care (as documented) at patient's floor/unit and/or counseling patient: Coding Level of Care Code 02858 SUB INP/OBS CARE 2/35MIN Diagnoses COVID-19 U07.1 Respiratory syncytial virus (RSV) B33.8 COPD with acute exacerbation J44.1 Cardiomyopathy, nonischemic I42.8 Elevated cholesterol E78.00 BPH (benign prostatic hyperplasia) N40.0
[2023-03-06] MEDS: DOCUSATE SODIUM 100 MG CAP PO SCH (17:45)
[2023-03-06] MEDS: ATORVASTATIN 10 MG TAB PO SCH (20:43)
[2023-03-06] MEDS: ASPIRIN 81 MG ECTAB PO SCH (20:44)
[2023-03-06] MEDS: rOPINIRole HCL 0.25 MG TABLET PO SCH (20:44)
[2023-03-06] MEDS: REMDESIVIR 100 MG in SODIUM CHLORIDE 0.9% 230 ML IV SCH (20:44)
[2023-03-07] MEDS: DOXYCYCLINE HYCLATE 100 MG in DEXTROSE 5% MINI-B 100 ML IV SCH ×2 (00:49→12:07)
[2023-03-07] MEDS: ENOXAPARIN INJ 40 MG/0.4 ML SYR SQ SCH (06:11)
[2023-03-07] MEDS: UMECLIDINIUM/VILANTEROL 62.5/25MCG 7 PUFFS/INHALER INH SCH (08:00)
[2023-03-07] MEDS: FLUTICASONE FUROATE 200MCG 14 PUFFS/INHALER INH SCH (08:00)
[2023-03-07] MEDS: METOPROLOL SUCC 50MG EXT REL TAB PO SCH (08:01)
[2023-03-07] MEDS: TAMSULOSIN HCL 0.4 MG CAP PO SCH (08:01)
[2023-03-07] MEDS: guaiFENesin 600 MG TABCR PO SCH ×2 (08:01→20:35)
[2023-03-07] MEDS: methylPREDNISolone 40 MG in SYRINGE 0 ML IV SCH ×3 (08:01→20:35)
[2023-03-07] MEDS: DOCUSATE SODIUM 100 MG CAP PO SCH ×2 (08:01→20:35)
[2023-03-07] MEDS: ACETYLCYSTEINE 20% INHAL SOLN 4ML ***DISPENSED BY RESP. INH SCH ×2 (08:07→19:32)
[2023-03-07] MEDS: ALBUT/IPRATROP 3MG/0.5MG NEB 3 ML VIAL INH SCH ×4 (08:07→19:32)
[2023-03-07 09:07] LABS: Alanine Aminotransferase 15 U/L (7-52); Albumin Globulin Ratio 1.2 (0.9-2); Albumin Level 3.7 gm/dl (3.4-5.0); Alkaline Phosphatase 65 U/L (34-104); Anion Gap 6 (3-11); BUN Creatinine Ratio 22.7 (10-20); Bilirubin,Total 0.5 mg/dl (0.2-1.0); Blood Urea Nitrogen 25 mg/dl (6-23); Carbon Dioxide 30 mmol/L (21-32); Chloride 100 mmol/L (98-107); Creatinine Clr Calc Pharmacy 81.9 ml/min; Est GFR (African American) 80.1 ml/min; Est GFR (Non-African American) 69.1 ml/min; Glucose 193 mg/dl (70-99(Fasting)); Magnesium 2.1 mg/dl (1.7-2.4); Sodium 136 mmol/L (136-145); Total Protein 6.7 gm/dl (6.0-8.3)
[2023-03-07 10:24] LABS: Potassium 4.4 mmol/L (3.5-5.1)
--- NOTE | 2023-03-07 18:46 | Hospitalist Progress Note ---
Date of Service March 07, 2023 Assessment & Plan (1) COVID-19: Plan: 67yo male presenting with acute on chronic respiratory failure with hypoxia secondary to COVID-19. Patient with underlying oxygen dependent COPD on 3L continuous oxygen but was requiring 5 L nasal cannula here on admission. Procalcitonin is NEGATIVE as is BNP and CRP. VBG with chronic/compensated respiratory acidosis. D-dimer is WNL at 290 Slowly improving, weaned down to 2 L nasal cannula at rest, up to 3L with fairly minimal exertion. Remains with wheezing but is improved and rhonchi now resolved -continue on Mucomyst nebs twice daily -Maintain isolation precautions for COVID -Continue treatment with Solumedrol 40mg IV TID -Continue Remdesivir per protocol -Tylenol as needed for pain or fever -Albuterol nebs scheduled -Lovenox 40mg for DVT prophylaxis -Supplemental O2 as needed to keep pulse ox greater than 90% as does have severe COPD -Follow blood cultures-no growth to date -Follow sputum culture (2) Respiratory syncytial virus (RSV): Plan: Contributing to patient's SOB and hypoxia -Supportive care -Albuterol PRN (3) COPD with acute exacerbation: Plan: Acute on chronic hypoxic respiratory failure - severe O2 dependent COPD + RSV + Covid -Solumedrol 40mg IV TID -DuoNeb q 4 hours -Albuterol q 2 hours PRN -Mucinex 1200mg po BID -Doxycycline 100mg IV BID for atypical coverage -Continue Umeclidinium/Vilanterol (LAMA/LABA) -Continue Fluticasone (ICS) -Flutter valve QID (4) Cardiomyopathy, nonischemic: Plan: Appears well compensated. Echo from 04/2021 with grossly normal LV function. BNP here is normal -Monitor -Continue metoprolol XL -Continue ASA (5) Elevated cholesterol: Plan: Chronic. Stable -Continue Atorvastatin (6) BPH (benign prostatic hyperplasia): Plan: Chronic. Stable -Continue Flomax Plan Constipation-improved, continue docusate 100 Mg p.o. twice daily Insomnia-ad on melatonin 3mg hs DVT prophylaxis-Lovenox Disposition-continued stay, will likely need 1 more day in the hospital before discharge Admission and Anticipated Discharge Date Admission Date: March 05, 2023 Anticipated date of discharge: 03/08/23 Subjective Overall improving but remains dyspneic just with washing himself up in the bathroom, required increase in O2 to 3LNC. Doesn't sleep well at home or here. Coughing but not bringing up sputum. Moving bowels today, making urine, eating Physical Exam Constitutional: WD/WN, vitals as above Respiratory: normal respiratory effort; no cough Auscultation: + wheezes (Diffuselybut less than previous); no crackles and no rhonchi Cardiovascular: RRR, no murmur, no edema Gastrointestinal (Abdomen): normal bowel sounds, soft, nontender, no hepatosplenomegaly Psychiatric: A+Ox3, euthymic affect Results & Data Results & Data Vital Signs (Past 12 Hours) Vital Signs Temp Pulse Resp BP Pulse Ox O2 Del Method O2 Flow Rate 03/07/23 17:15 36.6 C 101 H 18 150/73 H 96 Nasal Cannula 2 03/07/23 15:41 88 20 97 Nasal Cannula 2 03/07/23 11:51 90 18 96 Nasal Cannula 2 03/07/23 08:08 92 H 16 98 Nasal Cannula 2 03/07/23 07:58 36.4 C L 93 H 18 126/64 97 Nasal Cannula 2 Laboratory Results CMP, magnesium, blood and sputum cxs reviewed PG Care Time/CCT Total # of Minutes Spent Total Time Spent with Patient: Total time spent is greater than 50% in coordination of care (as documented) at patient's floor/unit and/or counseling patient: Coding Level of Care Code 99355 SUB INP/OBS CARE 2/35MIN Diagnoses COVID-19 U07.1 Respiratory syncytial virus (RSV) B33.8 COPD with acute exacerbation J44.1 Cardiomyopathy, nonischemic I42.8 Elevated cholesterol E78.00 BPH (benign prostatic hyperplasia) N40.0
[2023-03-07] MEDS: ATORVASTATIN 10 MG TAB PO SCH (20:35)
[2023-03-07] MEDS: ASPIRIN 81 MG ECTAB PO SCH (20:35)
[2023-03-07] MEDS: rOPINIRole HCL 0.25 MG TABLET PO SCH (20:35)
[2023-03-07] MEDS: REMDESIVIR 100 MG in SODIUM CHLORIDE 0.9% 230 ML IV SCH (20:45)
[2023-03-07] MEDS ORDERED: MELATONIN 3 MG TAB PO SCH (21:00)
[2023-03-08] MEDS: DOXYCYCLINE HYCLATE 100 MG in DEXTROSE 5% MINI-B 100 ML IV SCH ×2 (00:36→13:52)
[2023-03-08] MEDS: ENOXAPARIN INJ 40 MG/0.4 ML SYR SQ SCH (05:55)
[2023-03-08] MEDS: ALBUT/IPRATROP 3MG/0.5MG NEB 3 ML VIAL INH SCH ×3 (08:33→14:27)
[2023-03-08] MEDS: ACETYLCYSTEINE 20% INHAL SOLN 4ML ***DISPENSED BY RESP. INH SCH (08:33)
[2023-03-08] MEDS: guaiFENesin 600 MG TABCR PO SCH (10:07)
[2023-03-08] MEDS: TAMSULOSIN HCL 0.4 MG CAP PO SCH (10:08)
[2023-03-08] MEDS: METOPROLOL SUCC 50MG EXT REL TAB PO SCH (10:08)
[2023-03-08] MEDS: FLUTICASONE FUROATE 200MCG 14 PUFFS/INHALER INH SCH (10:08)
[2023-03-08] MEDS: DOCUSATE SODIUM 100 MG CAP PO SCH (10:08)
[2023-03-08] MEDS: UMECLIDINIUM/VILANTEROL 62.5/25MCG 7 PUFFS/INHALER INH SCH (10:08)
[2023-03-08] MEDS: methylPREDNISolone 40 MG in SYRINGE 0 ML IV SCH ×2 (13:52→13:57)
--- NOTE | 2023-03-08 17:11 | Discharge Summary ---
Discharge Summary Date of Service March 08, 2023 Notes For Next Care Provider Medication Changes From Visit Prednisone taper Doxycycline 100mg po bid x 4 more days Admission HPI Per Admitting Provider Rodney Payan is a pleasant 67yo male presenting with shortness of breath. Patient with history of severe COPD (PFTs on 02/26/23 with FEV1 of 33% predicted - Patient follows with [facility]), chronic hypoxic respiratory failure on 3L of O2 at home and chronic Azithromycin therapy M/W/F. 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 He reports getting a URI approximately 3 weeks ago. His symptoms were initially mild. About 10 days ago he began to develop worsening chest tightness, wheeze and shortness of breath. He was seen by his PCP and prescribed Augmentin, a Prednisone taper and Tessalon. He had Covid-19 testing at that time 03/01/23 which was NEGATIVE on a lab test as well as a home test. He took these medications with no improvement. On 03/04/23 the Augmentin was changed to Levaquin. Patient reports that his symptoms have continued to get worse - increased cough and shortness of breath. His oxygen saturation at rest has been fairly normal, however, with ambulation his saturations drop into the 60's and 70's. He denies fever or chills. Denies chest pain or palpitations. He has stable bilateral LE edema which has not changed. He has been taking DuoNebs/Albuterol every 3-4 hours with no relief. In the ER he is hypoxic to 85% on his 3L NC ER Course: Dexamethasone 6mg IV Albuterol 3mL neb Principal Dx & Hospital Course #1 = Principal Diagnosis (1) COVID-19: 67yo male presenting with acute on chronic respiratory failure with hypoxia secondary to COVID-19. Patient with underlying oxygen dependent COPD on 3L continuous oxygen but was requiring 5 L nasal cannula here on admission. Procalcitonin is NEGATIVE as is BNP and CRP. VBG with chronic/compensated respiratory acidosis. D-dimer is WNL at 290 Much improved, weaned down to 2 L nasal cannula at rest, up to 3L with fairly minimal exertion. Remains with very minimal wheezing and feel sbetter overall, less DEXTER -received Mucomyst nebs twice daily, bronchodilator nebs, and Solumedrol 40mg IV TID-convert to prednisone 40mg and taper down over 8 days -received Remdesivir daily x 3 days -Lovenox 40mg for DVT prophylaxis -Follow blood cultures-no growth to date - sputum culture moderate normal megan stable for dc to home (2) Respiratory syncytial virus (RSV): Contributing to patient's SOB and hypoxia -Supportive care -Albuterol PRN (3) COPD with acute exacerbation: Acute on chronic hypoxic respiratory failure - severe O2 dependent COPD + RSV + Covid treatment as above -Doxycycline 100mg IV BID for atypical coverage given and finish out po course for 4 more days at discharge (4) Cardiomyopathy, nonischemic: Appears well compensated. Echo from 04/2021 with grossly normal LV function. BNP here is normal -Continue metoprolol XL -Continue ASA (5) Elevated cholesterol: Chronic. Stable -Continue Atorvastatin (6) BPH (benign prostatic hyperplasia): Chronic. Stable -Continue Flomax Plan Constipation-improved with softeners DVT prophylaxis-Lovenox Disposition-dc to home Discharge Exam Constitutional WD/WN, vitals as above Respiratory normal respiratory effort; no cough Auscultation: no crackles and no rhonchi minimal wheeze, much improved Cardiovascular RRR, no murmur, no edema Gastrointestinal (Abdomen) normal bowel sounds, soft, nontender, no hepatosplenomegaly Psychiatric A+Ox3, euthymic affect Updated Medication List Medication Instructions Recorded Confirmed Type multivitamin 1 tab PO QAM 02/11/18 03/05/23 History hydrocortisone 1 % topical cream 1 applic topical BID PRN Itching 04/01/21 03/05/23 History (Anti-Itch (hydrocortisone)) aspirin 81 mg tablet,delayed 81 mg PO QPM 06/09/21 03/05/23 History release (Adult Low Dose Aspirin) cholecalciferol (vitamin D3) 50 50 mcg PO QAM 06/09/21 03/05/23 History mcg (2,000 unit) capsule ipratropium 0.5 mg-albuterol 3 mg 3 ml inhalation QID PRN shortness 01/13/22 03/05/23 Rx (2.5 mg base)/3 mL nebulization of breath or wheezing #1,080 vials soln triamcinolone acetonide 0.025 % 1 applic topical PRN 02/08/22 03/05/23 History topical ointment albuterol sulfate 90 mcg/actuation 2 puff inhalation Q4H PRN 07/20/22 03/05/23 Rx aerosol inhaler shortness of breath or wheezing #3 Inhalers azithromycin 250 mg tablet 250 mg PO .COMPLEX #36 tabs 07/20/22 03/05/23 Rx metoprolol succinate 50 mg 50 mg PO QAM #90 tabs 07/30/22 03/05/23 Rx tablet,extended release 24 hr (Toprol XL) atorvastatin 10 mg tablet 10 mg PO HS 09/15/22 03/05/23 History guaifenesin 1,200 mg tablet, 1,200 mg PO BID 09/15/22 03/05/23 History extended release 12 hr (Mucinex) tamsulosin 0.4 mg capsule 0.4 mg PO QAM 09/15/22 03/05/23 History Oxygen Home 09/17/22 03/05/23 History fluticasone fur. 200 mcg-umeclid 1 inh inhalation QAM #3 Inhalers 12/17/22 03/05/23 Rx 62.5 mcg-vilant 25 mcg inhalat.powder (Trelegy Ellipta) Nitroglycerin 0.2% 1 tube ointment See Rx Instructions topical 01/12/23 03/05/23 Rx .COMPLEX #1 tube meclizine 25 mg tablet See Rx Instructions PO TID PRN 01/12/23 03/05/23 Rx dizziness or vertigo #30 tabs ropinirole 0.5 mg tablet 0.5 mg PO PM #90 tabs 02/15/23 03/05/23 Rx benzonatate 200 mg capsule 200 mg PO TID PRN cough #20 caps 03/01/23 03/05/23 Rx prednisone 10 mg tablet See Rx Instructions PO DAILY #30 03/01/23 03/05/23 Rx tabs levofloxacin 500 mg tablet 500 mg PO DAILY #10 tabs 03/04/23 03/05/23 Rx doxycycline hyclate 100 mg tablet 100 mg PO BID #8 tabs 03/08/23 Rx prednisone 10 mg tablet 10 mg PO DIRECTED #20 tabs 03/08/23 Rx Hospital Stay Data Consultations 03/05/23 21:44 ED Decision to Admit Stat Pending Results Patient Have Any Pending Studies at Discharge: Yes (Final blood cultures-no growth to date) Discharge Instructions Given to Patient (Per Discharging Provider) Finish out the prednisone taper as directed. You will also need 4 more days of doxycycline as an antibiotic, twice a day. Continue your albuterol inhaler as needed for wheezing or cough. Your sputum culture did not grow out any bacteria. Total Time Total Time Spent Total Time Spent (In Minutes): 35 min Coding Level of Care Code 55401 INP/OBS DISCH >30 MIN Diagnoses COVID-19 U07.1 Respiratory syncytial virus (RSV) B33.8 COPD with acute exacerbation J44.1 Cardiomyopathy, nonischemic I42.8 Elevated cholesterol E78.00 BPH (benign prostatic hyperplasia) N40.0
== END 2023-03-08 19:15 | disposition home or self-care (01) | DRG 177 ==
LOC: ED 18:26 → EDINP 22:18 → SUATTDRO 22:18 → 3W 03-06 00:18

== ENCOUNTER 2023-12-25 17:36 | Inpatient (IN) ==
--- OUTSIDE RECORDS SUMMARY | 2023-12-25 17:40 | External Medical Summary | Summary of Care ---
Author Name Unknown Organization [facility] Address [address] [place] [address] Phone [phone] Care Team Providers Care Automatic Glove Turner And Former Name Role Phone Aggie Mccollum MD Primary Care Provider Encounter Details Date Type Department Care Team (Late st Contact Info) Description 12/16/2023 Telephone Dental Medicine, [place] [address] [place], [place] [id number] Services, [facility] [address] [place] [address] Allergies Active Allergy Reactions Criticality Noted Date Comments Bee Stings 06/20/1997 swelling,GI upset Diltiazem Hives 11/18/2020 documented as of this encounter (statuses as of 12/19/2023) Medications Medication Sig Dispensed Refills Start Date End Date Status RETURN TO WORKIndications:Backa barbra,Intervertebral disc prolapse Light duty x 1 week then return to full without restrictions. 1 0 03/22/2002 Active Metoprolol Succinate 50 MG Oral Capsule ER 24 Hour Sprinkle Take by mouth. Acti ve Aspirin 81 MG Oral Tablet Chewable Take 1 Tablet by mouth in the morning. Active Albuterol Sulfate 108 (90 Base) MCG/ACT Inhalation Aerosol Powder Breath Activated Inhale by mouth. Active Fexofenadine HCl 180 MG Oral Tablet Take 1 Tablet by mouth in the morning. Active predniSONE 10 MG Oral Tablet (Deltasone) Take 1 Tablet by mouth in the morning. Taper . Active Atorvastatin Calcium 10 MG Oral Tablet (Lipitor) 10/14/2021 Active Azithromycin 250 MG Oral Tablet (Zithromax) TAKE ONE TABLET BY MOUTH "ON TUESDAY, TUESDAY AND TUESDAY" 36 Tablet 3 07/20/2022 Active rOPINIRole HCl 0.5 MG Oral Tablet (Requip) TAKE ONE TABLET BY MOUTH EVERY EVENING 90 Tablet 3 03/10/2022 Active rOPINIRole HCl 0.5 MG Oral Tablet (Requip) take 1 tablet by mouth in evening 90 Tablet 3 02/15/2023 Active Azithromycin 250 MG Oral Tablet (Zithromax) take 1 tablet by mouth on Tuesday-Tuesday -Tuesday; 36 Tablet 3 06/08/2023 Active Tamsulosin HCl 0.4 MG Oral Capsule (Flomax) Take 1 Capsule by mouth in the morning. 90 Capsule 3 06/15/2023 Active Tamsulosin HCl 0.4 MG Oral Capsule (Flomax) TAKE ONE CAPSULE BY MOUTH IN THE MORNING 90 Capsule 3 06/15/2023 Active Albuterol Sulfate HFA 108 (90 Base) MCG/ACT Inhalation Aerosol Solution INHALE TWO PUFFS BY MOUTH EVERY FOUR HOURS NEEDED FOR SHORTNESS OF BREATH OR WHEEZING 54 g 1 06/21/2023 Active Trelegy Ellipta 200-62.5-25 MCG/ACT Aerosol Powder Breath Activated (Fluticasone-Umeclidi nium-Vilanterol) INHALE ONE PUFF BY MOUTH IN THE MORNING 180 Each 3 06/21/2023 Active Atorvastatin Calcium 10 MG Oral Tablet (Lipitor) take one tablet by mouth at bedtime 90 Tablet 3 09/02/2023 Active Levocetirizine Dihydrochloride 5 MG Oral Tablet take one tablet by mouth daily as needed for allergies, take daily for 10 days then as needed 90 Tablet 3 09/02/2023 Active Metoprolol Succinate ER 50 MG Oral Tablet Extended Release 24 Hour (toPROL XL) take one tablet by mouth daily in the morning 90 Tablet 3 09/02/2023 Active oxygen IN GAS Use 1 L/min(Oxygen) as directed. Active guaiFENesin ER 1200 MG Oral Tablet Extended Release 12 Hour 1,200 mg. 09/15/2022 Active Betamethasone Dipropionate 0.05 % External Cream (Diprosone) APPLY TOPICALLY TO DERMATITIS ON THE FACE TWICE A DAY FOR UP TO 5 DAYS AT A TIME Active Chlorhexidine Gluconate 0.12 % Mouth/Throat Solution (Periogard) Swish and spit 15 mL 4 times a day; after all three meals and at bedtime. Do not swallow. 473 mL 11/29/2023 Active Multiple Vitamin Oral Tablet 1 Tablet. Active documented as of this encounter (statuses as of 12/19/2023) Active Problems Problem Noted Date Diagnosed Date Tongue cancer 12/01/2023 BPH with obstruction/lower urinary tract symptom s 11/18/2020 Slow urinary stream 11/18/2020 Nocturia 11/18/2020 History of kidney stones 11/18/2020 Mixed dyslipidemia documented as of this encounter (statuses as of 12/19/2023) Social History Tobacco Use Types Packs/Day Years Used Date Smoking Tobacco: Former Cigarettes Q uit: 03/07/2010 Smokeless Tobacco: Former Alcohol Use Standard Drinks/Week Comments Yes 0 (1 standard drink = 0.6 oz pur e alcohol) occasional PHQ-2 Answer Date Recorded PHQ Adult Total Score 0 12/05/2023 Hunger Vital Sign Answer Date Recorded Within the past 12 months, y ou worried that your food would run out before you got the money to buy more. Never true 12/05/19 Within the past 12 months, t he food you bought just didn't last and you didn't have money to get more. Never true 12/05/2023 Childcare Answer Date Recorded Do you feel overwhelmed with taking care of a child, family member or friend? No 12/05/2023 Does your family need help f inding childcare? (Household - for ages 0-17 years) Not on file 12/05/2023 Clothing Answer Date Recorded Have you been unable to get clothing when it was really needed? No 12/05/2023 Is your family able to get c lothes or diapers when needed? (Household - for ages 0-17 years) Not on file 12/05/2023 Personal Safety Answer Date Recorded Do you feel unsafe or have concerns for your saf ety? No 12/05/2023 Do you have concerns for you r family's safety? (Household - for ages 0-17 years) Not on file 12/05/2023 Utilities Answer Date Recorded Do you have trouble paying y our heating, water, or electric bill? No 12/05/2023 Is your family able to pay t he heat, water, or electric bill? (Household - for ages 0-17 years) Not on file 12/05/2023 Does your family have access to good internet? (Household - for ages 0-17 years) Not on file 12/05/2023 Employment Status Answer Date Recorded Are you unemployed or without regular income? No 12/05/2023 Does the household have a re gular source of income? (Household - for ages 0-17 years) Not on file 12/05/2023 Social Connections Answer Date Recorded How often do you feel lonely or isolated from th ose around you? Never 12/05/2023 Financial Resource Strain Answer Date R ecorded Do you have any trouble payi ng for your medications, or do you think you might in the future? No 12/05/2023 Does your family have troubl e paying for medicine? (Household - for ages 0-17 years) Not on file 12/05/2023 Transportation Needs Answer Date Record ed Do you have trouble getting a ride to medical visits or work? (Adult - for ages 18 years and over) Not on file 12/05/2023 Does your family have a hard time getting a ride to doctors visits? (Household - for ages 0-17 years) Not on file 12/05/2023 Has lack of transportation k ept you from medical appointments, meetings, work, or from getting things needed for daily living? Check all that apply. No 12/05/2023 Do you (or your family) have trouble finding or paying for a ride (transportation)? (Household - for ages 0-17 years) Not on file 12/05/2023 Housing Stability Answer Date Recorded Do you currently live in a s helter or have no steady place to sleep at night? No 12/05/2023 Do you think you are at risk of becoming homeless? (Adult - for ages 18 years and over) Not on file 12/05/2023 Does your family worry about paying for your home or becoming homeless? (Household - for ages 0-17 years) Not on file 0 12/05/2023 Are you homeless or worried that you might be in the future? No 12/05/2023 Are you (or your family) shauna eless or worried that you might be in the future? (Household - for ages 0-17 years) Not on file Food Insecurity Answer Date Recorded Do you need food for this week? No 12/05/2023 Are you able to get enough f ood for your family? (Household - for ages 0-17 years) Not on file 12/05/2023 Does your family need food t his week? (Household - for ages 0-17 years) Not on file 12/05/2023 Do you always have enough fo od for your family? (Household - for ages 0-17 years) Not on file 12/05/2023 Sex and Gender Information Value Date Recorded Sex Assigned at Not on file Gender Identity Not on file Sexual Orientation Not on file Job Start Date Occupation Industry Not on file Not on file Not on file documented as of this encounter Functional Status Functional Status Response Date of Assess ment Are you deaf or do you have serious difficulty h earing? No 11/29/2023 Are you blind or do you have serious difficulty seeing, even when wearing glasses? No 11/29/2023 Do you have serious difficul ty walking or climbing stairs? (5 years old or older) No 11/29/2023 Do you have difficulty dress ing or bathing? (5 years old or older) No 11/29/2023 Because of a physical, menta l, or emotional condition, do you have difficulty doing errands alone such as visiting a doctor s office or shopping? (15 years old or older) No 11/29/19 Cognitive Status Response Date of Assessm ent Because of a physical, menta l, or emotional condition, do you have serious difficulty concentrating, remembering, or making decisions? (5 years old or older) No 11/29/2023 documented as of this encounter Miscellaneous Notes * Telephone Encounter - Tennille Jones OSA - 12/19/2023 5:26 PM EDT Pt called in and stated that he does not have any teeth and does not know why he would need to be seen in our department * Telephone Encounter - Raisa Hubbard OSA - 12/16/2023 4:07 PM EDT Referral for radiation therapy for tongue cancer documented in this encounter Plan of Treatment Upcoming Encounters Date Type Department Care Team (Late st Contact Info) Description 05/16/2024 10:30 AM EDT Office Visit Urology, [facility] [address] [place] [address] Sigifredo Wright MD [address] [place] [id number] Health Maintenance Due Date Last Done Comments Hepatitis C Screening 06/11/1973 Cologuard 06/11/2000 Colonoscopy 06/11/2000 Colorectal Cancer Screening 06/11/2000 Fecal Occult Blood Test 06/11/2000 Sigmoidoscopy 06/11/2000 Zoster Vaccines (1 of 2) 06/11/2005 COVID-19 Vaccine ( season) 2023 05/22/2020, 04/15/2020 Influenza Vaccine (FLU shot) (#1) 2023 02/06/2020, 12/09/2017, 11/28/2015, Additional history exists Depression Screening 12/04/2024 12/05/2023 Lipid Panel 10/08/2025 10/08/2020 Diabetes Screening 11/28/2026 11/29/2023, 0 11/29/2023, 11/29/2023, Additional history exists DTap/Tdap Vaccines (2 - Td or Tdap) 07/01/2028 07/01/2018 Pneumococcal Vaccine: 65+ Years Completed 06/13/2020, 01/28/2013 AAA Screening Completed 11/05/2022 HPV (Gardasil) Vaccine Aged Out No lo nger eligible based on patient's age to complete this topic Hepatitis B Vaccine Aged Out No longe r eligible based on patient's age to complete this topic MENINGOCOCCAL (MENACTRA/MENVEO) Aged Out No longer eligible based on patient's age to complete this topic documented as of this encounter Medical Devices Implanted Type Area Print Press Operator Device Identifier Shelf Expiration Date Model / Serial / Lot Cytal Wndmtx 1lyr 7x10cm - [id number] - [id number] Implanted:Qty: 1 on 11/29/2023 by James Gooden DO [place] [facility] [place] M[place] [employer] [id number] 05/04/2025 [id number] / [id number] / [id number] documented as of this encounter Advance Directives * Full Code (Latest Code Status on File) Date Activated Date Inactivated Comments 11/29/2023 11:41 AM 12/01/2023 1:26 PM This order reflects the patients wishes and were consensually agreed upon. Question Answer Comments Discussion of Advance Direct rohit occurred with: Not Discussed due to patient's condition Care Teams Automatic Glove Turner And Former Relationship Specialty Start Date End Date Aggie Mccollum MD [address] [place] [address] PCP - General Family Medicine 09/23/22 documented as of this encounter
--- OUTSIDE RECORDS SUMMARY | 2023-12-25 17:40 | External Medical Summary ---
Author Name Unknown Address Unknown Organization [id number]:[facility] - [address] [facility] [address] Laboratory Report Ordering Provider Test Date Status KAREN FULTON 11/29/2023 07:11:13 Final Observation Date Value Abnormality Reference (Units ) Status BUN 11/29/2023 07:11:13 18 6-20 (mg/dL) Final Creatinine 11/29/2023 07:11:13 1.1 0.6-1.2 (mg/dL) Final Glomerular filtration rate/1.73 sq M.predicted [Volume Rate/Area] in Serum, Plasma or Blood by Creatinine-based formula (CKD-EPI) 11/29/2023 07:11:13 73 >=60 (mL/min) Final eGFR is calculated based on the CKD-EPI 2020 equation. Sodium 11/29/2023 07:11:13 139 135-146 (m mol/L) Final Potassium 11/29/2023 07:11:13 4.4 3.5-5.1 (m mol/L) Final Cl 11/29/2023 07:11:13 102 98-107 (mm ol/L) Final CO2 11/29/2023 07:11:13 27 22-32 (mmo l/L) Final Anion gap 11/29/2023 07:11:13 10 7-15 (mmol /L) Final Glucose 11/29/2023 07:11:13 110 70-120 (mg /dL) Final Calcium 11/29/2023 07:11:13 9.4 8.4-10.2 ( mg/dL) Final Performing Location [facility] - [address] [facility] [id number]
--- OUTSIDE RECORDS SUMMARY | 2023-12-25 17:40 | External Medical Summary | Summary of Care ---
Author Name Unknown Organization [facility] Address [address] [place] [address] Phone [phone] Care Team Providers Care Clinic Physician Director Name Role Phone Aggie Mccollum MD Primary Care Provider Encounter Details Date Type Department Care Team (Late st Contact Info) Description 11/30/2023 Population Health External Data Unspecified Department Allergies Active Allergy Reactions Criticality Noted Date Comments Bee Stings 06/20/1997 swelling,GI upset Diltiazem Hives 11/18/2020 documented as of this encounter (statuses as of 11/30/2023) Medications Medication Sig Dispensed Refills Start Date End Date Status oxyCODONE HCl 5 MG Oral Tablet (Oxy IR) Take 1 Tablet by mouth every 4 hours as needed for severe pain. 10 Tablet 11/29/2023 Active Chlorhexidine Gluconate 0.12 % Mouth/Throat Solution (Periogard) Swish and spit 15 mL 4 times a day; after all three meals and at bedtime. Do not swallow. 473 mL 11/29/2023 Active VIOXX 25 MG OR TABSIndications:Back ache 1 po qd with food 14 0 02/26/2002 Suspended Additional Information Patient not taking.Reported on 11/18/2020 RETURN TO WORKIndications:Back ache,Intervertebral disc prolapse Light duty x 1 week then return to full without restrictions. 1 0 03/22/2002 Suspended Additional Information Pramipexole Dihydrochloride 1 MG Oral Tablet (Mirapex) Take 2 mg by mouth daily. Suspended Metoprolol Succinate 50 MG Oral Capsule ER 24 Hour Sprinkle Take by mouth. S uspended Aspirin 81 MG Oral Tablet Chewable Take 1 Tablet by mouth in the morning. Suspended Albuterol Sulfate 108 (90 Base) MCG/ACT Inhalation Aerosol Powder Breath Activated Inhale by mouth. Ramesh spended Fexofenadine HCl 180 MG Oral Tablet Take 1 Tablet by mouth in the morning. Suspended predniSONE 10 MG Oral Tablet (Deltasone) Take 10 mg by mouth daily. Taper Suspended Atorvastatin Calcium 10 MG Oral Tablet (Lipitor) 10/14/2021 Suspended Azithromycin 250 MG Oral Tablet (Zithromax) TAKE ONE TABLET BY MOUTH "ON TUESDAY, TUESDAY AND TUESDAY" 36 Tablet 3 07/20/2022 Suspended Additional Information rOPINIRole HCl 0.5 MG Oral Tablet (Requip) TAKE ONE TABLET BY MOUTH EVERY EVENING 90 Tablet 3 03/10/2022 Suspended Additional Information rOPINIRole HCl 0.5 MG Oral Tablet (Requip) take 1 tablet by mouth in evening 90 Tablet 3 02/15/2023 Suspended Additional Information Azithromycin 250 MG Oral Tablet (Zithromax) take 1 tablet by mouth on Tuesday-Tuesday -Tuesday; 36 Tablet 3 06/08/2023 Suspended Additional Information Tamsulosin HCl 0.4 MG Oral Capsule (Flomax) Take 1 Capsule by mouth in the morning. 90 Capsule 3 06/15/2023 Suspended Additional Information Tamsulosin HCl 0.4 MG Oral Capsule (Flomax) TAKE ONE CAPSULE BY MOUTH IN THE MORNING 90 Capsule 3 06/15/2023 Suspended Additional Information Albuterol Sulfate HFA 108 (90 Base) MCG/ACT Inhalation Aerosol Solution INHALE TWO PUFFS BY MOUTH EVERY FOUR HOURS NEEDED FOR SHORTNESS OF BREATH OR WHEEZING 54 g 1 06/21/2023 Suspended Additional Information Trekristin Ellipta 200-62.5-25 MCG/ACT Aerosol Powder Breath Activated (Fluticasone-Umeclid inium-Vilanterol) INHALE ONE PUFF BY MOUTH IN THE MORNING 180 Each 3 06/21/2023 Suspended Additional Information Atorvastatin Calcium 10 MG Oral Tablet (Lipitor) take one tablet by mouth at bedtime 90 Tablet 3 09/02/2023 Suspended Additional Information Levocetirizine Dihydrochloride 5 MG Oral Tablet take one tablet by mouth daily as needed for allergies, take daily for 10 days then as needed 90 Tablet 3 09/02/2023 Suspended Additional Information Metoprolol Succinate ER 50 MG Oral Tablet Extended Release 24 Hour (toPROL XL) take one tablet by mouth daily in the morning 90 Tablet 3 09/02/2023 Suspended Additional Information oxygen IN GAS Use 1 L/min(Oxygen) as directed. Suspended guaiFENesin ER 1200 MG Oral Tablet Extended Release 12 Hour 1,200 mg. 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 No 11/29/2023 Do you have concerns for you r family's safety? (Household - for ages 0-17 years) Not on file 11/29/2023 Utilities Answer Date Recorded Do you have trouble paying y our heating, water, or electric bill? No 11/29/2023 Is your family able to pay t he heat, water, or electric bill? (Household - for ages 0-17 years) Not on file 11/29/2023 Does your family have access to good internet? (Household - for ages 0-17 years) Not on file 11/29/2023 Social Connections Answer Date Recorded How often do you feel lonely or isolated from those around you? (Adult - for ages 18 years and over) Not on file 08/23/2023 Transportation Needs Answer Date Record ed Do you have trouble getting a ride to medical visits or work? (Adult - for ages 18 years and over) Not on file 11/29/2023 Does your family have a hard time getting a ride to doctors visits? (Household - for ages 0-17 years) Not on file 11/29/2023 Has lack of transportation k ept you from medical appointments, meetings, work, or from getting things needed for daily living? Check all that apply. No 11/29/2023 Do you (or your family) have trouble finding or paying for a ride (transportation)? (Household - for ages 0-17 years) Not on file 11/29/2023 Housing Stability Answer Date Recorded Do you currently live in a s helter or have no steady place to sleep at night? (Adult - for ages 18 years and over) Not on file 11/29/2023 Do you think you are at risk of becoming homeless? (Adult - for ages 18 years and over) Not on file 11/29/2023 Does your family worry about paying for your home or becoming homeless? (Household - for ages 0-17 years) Not on file 0 11/29/2023 Are you homeless or worried that you might be in the future? No 11/29/2023 Are you (or your family) shauna eless or worried that you might be in the future? (Household - for ages 0-17 years) Not on file Food Insecurity Answer Date Recorded Do you need food for this week? No 11/29/2023 Are you able to get enough f ood for your family? (Household - for ages 0-17 years) Not on file 11/29/2023 Does your family need food t his week? (Household - for ages 0-17 years) Not on file 11/29/2023 Do you always have enough fo od for your family? (Household - for ages 0-17 years) Not on file 11/29/2023 Sex and Gender Information Value Date Recorded [...] No 11/29/2023 documented as of this encounter Plan of Treatment Upcoming Encounters Date Type Department Care Team (Late st Contact Info) Description 05/16/2024 10:30 AM EDT Office Visit Urology, [facility] [address] [place] [id number] Sigifredo Wright MD [address] [place] [id number] Health Maintenance Due Date Last Done Comments Depression Screening 1967 Hepatitis C Screening 06/11/1973 Cologuard 06/11/2000 Colonoscopy 06/11/2000 Colorectal Cancer Screening 06/11/2000 Fecal Occult Blood Test 06/11/2000 Sigmoidoscopy 06/11/2000 Zoster Vaccines (1 of 2) 06/11/2005 COVID-19 Vaccine ( season) 2023 05/22/2020, 04/15/2020 Influenza Vaccine (FLU shot) (#1) 2023 02/06/2020, 12/09/2017, 11/28/2015, Additional history exists Lipid Panel 10/08/2025 10/08/2020 Diabetes Screening 11/28/2026 [...] this encounter Medical Devices Implanted Type Area Food Preparation Kitchen Aide Device Identifier Shelf Expiration Date Model / Serial / Lot [employer] Wndmtx 1lyr 7x10cm - [id number] - [id number] Implanted:Qty: 1 on 11/29/2023 by James Gooden DO at [facility] Right: Mouth [employer] [id number] 05/04/2025 [id number] / [id number] / [id number] documented as of this encounter Advance Directives * Full Code (Latest Code Status on File) Date Activated Date Inactivated Comments 11/29/2023 11:41 AM This order re flects the patients wishes and were consensually agreed upon. Question Answer Comments Discussion of Advance Direct rohit occurred with: Not Discussed due to patient's condition Care Teams Clinic Physician Director Relationship Specialty Start Date End Date Aggie Mccollum MD [address] [place] [address] PCP - General Family Medicine 09/23/22 documented as of this encounter
--- OUTSIDE RECORDS SUMMARY | 2023-12-25 17:40 | External Medical Summary ---
Author Name Unknown Address Unknown Organization : Laboratory Report Ordering Provider Test Date Status KAREN FULTON 11/29/2023 07:11:16 Final Observation Date Value Abnormality Reference (Units ) Status Glucose Point of Care 11/29/2023 07:11:16 102 70-120 (mg/dL) Final Performing Location
--- OUTSIDE RECORDS SUMMARY | 2023-12-25 17:40 | External Medical Summary | Summary of Care ---
Author Name Unknown Organization [facility] Address [address] [place] [address] Phone [phone] Care Team Providers Care Show Operations Supervisor Name Role Phone Dasha Coley MD Primary Care Provider Reason for Visit * Auth/Cert Specialty Diagnoses / Procedures Referred By Ragini t Referred To Contact Diagnoses Squamous cell carcinoma of tongue (HCC) Tongue lesion Squamous cell carcinoma of tongue (HCC) [C02.9] Tongue lesion [K14.8] Procedures PARTIAL REMOVAL OF TONGUE,NECK SURG GLOSSECTOMY PARTIAL WITH NECK DISSECTION Leonardo Oliver DO [address] [place] [address] [place] [facility] [place] [address] [place] [address] Referral ID Status Reason Start Date Expiration Date Visits Re quested Visits Authorized [id number] Encounter Details Date Type Department Care Team (Latest Contact Info) Description 11/29/2023 5:51 AM EDT - 12/01/2023 9:26 AM EDT [id number] [address] [address] [place] [address] Leonardo Oliver DO [address] [place] [address] Discharge Disposition: Home - Self Care Allergies Active Allergy Reactions Criticality Noted Date Comments Bee Stings 06/20/1997 swelling,GI upset Diltiazem Hives 11/18/2020 documented as of this encounter (statuses as of 12/01/2023) Medications Medication Sig Dispensed Refills Start Date End Date Status VIOXX 25 MG OR TABSIndications:Backa barbra 1 po qd with food 14 0 02/26/2002 Active Additional Information Patient not taking.Reported on 11/18/2020 RETURN TO WORKIndications:Backa barbra,Intervertebral disc prolapse Light duty x 1 week then return to full without restrictions. 1 0 03/22/2002 Active Pramipexole Dihydrochloride 1 MG Oral Tablet (Mirapex) Take 2 mg by mouth daily. Active Metoprolol Succinate 50 MG Oral Capsule [...] Take 10 mg by mouth daily. Taper Active Atorvastatin Calcium 10 MG Oral Tablet [...] (Zithromax) take 1 tablet by mouth on Tuesday-Tuesday- Tuesday; 36 Tablet 3 06/08/2023 Active Tamsulosin HCl [...] TO 5 DAYS AT A TIME Active oxyCODONE HCl 5 MG Oral Tablet (Oxy IR) Take 1 Tablet by mouth every 4 hours as needed for severe pain. 10 Tablet 11/29/2023 Active Chlorhexidine Gluconate 0.12 % Mouth/Throat Solution (Periogard) Swish and spit 15 mL 4 times a day; after all three meals and at bedtime. Do not swallow. 473 mL 11/29/2023 Active documented as of this encounter (statuses as of 12/01/2023) Active Problems Problem Noted Date Diagnosed Date Tongue cancer 12/01/2023 BPH with obstruction/lower urinary tract symptom s 11/18/2020 Slow urinary stream 11/18/2020 Nocturia 11/18/2020 History of kidney stones 11/18/2020 Mixed dyslipidemia documented as of this encounter (statuses as of 12/01/2023) Social History Tobacco Use Types Packs/Day Years [...] on file documented as of this encounter Last Filed Vital Signs Vital Sign Reading Time Taken Comments Blood Pressure 117/65 12/01/2023 7:37 AM EDT Pulse 83 12/01/2023 7:37 AM EDT Temperature 36.4 C (97.6 F) 12/01/2023 7:37 AM ED T Respiratory Rate 18 12/01/2023 3:00 AM EDT Oxygen Saturation 100% 12/01/2023 7:37 AM EDT Inhaled Oxygen Concentration - - Weight 107.3 kg (236 lb 9.6 oz) 11/29/2023 1:13 PM EDT Height 182.9 cm (6') 11/29/2023 1:13 PM EDT Body Mass Index 32.09 11/29/2023 1:13 PM EDT documented in this encounter Functional Status Functional Status Response [...] No 11/29/2023 documented as of this encounter Discharge Summaries * Patricia De Paz, - 12/01/2023 7:26 AM EDT Images from the original note were not included. [address] [address] Admission Date: 11/29/2023 Discharge Date: 12/01/2023 DISCHARGE DIAGNOSES: Active Hospital Problems Diagnosis *Principal Diagnosis - Tongue cancer (HCC) Resolved Hospital Problems No resolved problems to display. Other Significant Diagnoses: none CONDITION ON DISCHARGE: stable Cognition: normal DISPOSITION ON DISCHARGE: home FOLLOW-UP: Future Appointments Appt Date/Time Provider Department 05/16/2024 10:30 AM Sigifredo Wright MD Urology, [facility] Outpatient testing already scheduled: none Outpatient testing that needs to be arranged: none Inpatient test results pending: none MEDICATIONS ON DISCHARGE: MEDICATION UPDATES AT DISCHARGE START taking these medications INSTRUCTIONS chlorHEXIDINE 0.12 % solution Commonly known as: Periogard Swish and spit 15 mL 4 times a day; after all three meals and at bedtime. Do not swallow. oxyCODONE 5 MG immediate release tablet Commonly known as: Oxy IR Take 1 Tablet by mouth every 4 hours as needed for severe pain. CONTINUE taking these medications INSTRUCTIONS * albuterol HFA 108 (90 BASE) MCG/ACT inhaler INHALE TWO PUFFS BY MOUTH EVERY FOUR HOURS NEEDED FOR SHORTNESS OF BREATH OR WHEEZING aspirin 81 MG chewable tablet Take 1 Tablet by mouth in the morning. * atorvaSTATin 10 MG Tablet Commonly known as: Lipitor take one tablet by mouth at bedtime * Azithromycin 250 MG Tablet Commonly known as: Zithromax TAKE ONE TABLET BY MOUTH "ON TUESDAY, TUESDAY AND TUESDAY" * Azithromycin 250 MG Tablet Commonly known as: Zithromax take 1 tablet by mouth on Mweuks-Bukncixua-Wmrsbm; Betamethasone Dipropionate 0.05 % cream Commonly known as: Diprosone APPLY TOPICALLY TO DERMATITIS ON THE FACE TWICE A DAY FOR UP TO 5 DAYS AT A TIME fexofenadine 180 MG Tablet Commonly known as: Brianna Take 1 Tablet by mouth in the morning. guaiFENesin ER 1200 MG Tb12 1,200 mg. Levocetirizine Dihydrochloride 5 MG Tablet take one tablet by mouth daily as needed for allergies, take daily for 10 days then as needed * Metoprolol Succinate 50 MG Cs24 Take by mouth. * metoprolol succinate XL 50 MG Tb24 Commonly known as: toPROL XL take one tablet by mouth daily in the morning oxygen Gas Use 1 L/min(Oxygen) as directed. pramipexole 1 MG Tablet Commonly known as: Mirapex Take 2 mg by mouth daily. RETURN TO WORK Light duty x 1 week then return to full without restrictions. * rOPINIRole 0.5 MG Tablet Commonly known as: Requip TAKE ONE TABLET BY MOUTH EVERY EVENING * rOPINIRole 0.5 MG Tablet Commonly known as: Requip take 1 tablet by mouth in evening * tamsulosin 0.4 MG Capsule Commonly known as: Flomax Take 1 Capsule by mouth in the morning. * tamsulosin 0.4 MG Capsule Commonly known as: Flomax TAKE ONE CAPSULE BY MOUTH IN THE MORNING Trelegy Ellipta 200-62.5-25 MCG/ACT Aepb Generic drug: Tfwttvvhqjb-Xqopgvbntwkl-Mdabwtzklz INHALE ONE PUFF BY MOUTH IN THE MORNING VIOXX 25 MG Tabs Generic drug: ROFECOXIB 1 po qd with food * This list has 10 medication(s) that are the same as other medications prescribed for you. Read the directions carefully, and ask your doctor or other care provider to review them with you. CONTINUE taking these medications but follow up with your Primary Care Physician (PCP). INSTRUCTIONS * Albuterol Sulfate 108 (90 Base) MCG/ACT Aepb Inhale by mouth. * atorvaSTATin 10 MG Tablet Commonly known as: Lipitor predniSONE 10 MG Tabs Tablet Commonly known as: Deltasone Take 10 mg by mouth daily. Taper * This list has 2 medication(s) that are the same as other medications prescribed for you. Read thedirections carefully, and ask your doctor or other care provider to review them with you. ALLERGIES: Bee stings and Cardizem [diltiazem] INSTRUCTIONS: Activity: No strenuous activity for 2 weeks Diet: soft diet Code Status: Full Code Indwelling devices: none ADMISSION HISTORY & PHYSICAL EXAM (focused): The patient presents today for scheduled surgery. He denies any changes to health since last clinicvisit. Denies recent illness. Denies use of ASA, NSAIDs, or other anticoagulants. No acute distress Regular rate and rhythm without murmur Lungs clear to auscultation bilaterally Right lateral tongue scar/lesion HOSPITAL COURSE (focused): Patient underwent right partial glossectomy with right neck dissection (levels IB - IV) with Dr. Oliver on 11/29/2023. Patient had manageable pain and was given a diet (soft-bite sized solids with thinliquids) that he has tolerated well. Drain was removed AM of 12/01/2023. Patient has been cleared for discharge. Operations & Procedures: partial right glossectomy with right neck dissection. Complications: none significant SIGNIFICANT RESULTS: Vital Signs (last recorded): Most Recent Systolic BP: 120 mmHg (12/01/23299) Most Recent Diastolic BP: 62 mmHg (12/01/23299) Pulse: 81 (12/01/23299) Resp: 18 (12/01/23299) Most Recent Temperature: 36.61 C (12/01/23299) Weight: 107.3 kg (236 lb 9.6 oz) (11/29/23 1313) SpO2: 95 % (12/01/23299) O2 flow rate: 2 L/MIN (12/01/23299) Labs: CHEMISTRY: BUN, Creatinine, GFR Estimated, Sodium, Potassium, Chloride, Carbon Dioxide, Glucose, Calcium (see below for most recent value): Lab Results Component Value Date/Time BUN 18 11/29/2023 07:11 AM BUN 15 11/25/2000 10:30 AM CREAT 1.1 11/29/2023 07:11 AM CREAT 1.15 10/08/2020 12:00 AM CREAT 0.9 11/25/2000 10:30 AM NA 139 11/29/2023 07:11 AM NA 143 11/25/2000 10:30 AM POTASSIUM 4.4 11/29/2023 07:11 AM POTASSIUM 4.4 10/08/2020 12:00 AM POTASSIUM 4.2 11/25/2000 10:30 AM CL 102 11/29/2023 07:11 AM CL 103 11/25/2000 10:30 AM CO2 27 11/29/2023 07:11 AM CO2 29 11/25/2000 10:30 AM CA 9.4 11/29/2023 07:11 AM CA 9.1 11/25/2000 10:30 AM BLOOD COUNT: WBC, Hgb, Platelets (see below for most recent value): Lab Results Component Value Date/Time WBC 6.77 11/29/2023 07:11 AM HGB 14.2 11/29/2023 07:11 AM HGB 13.8 (L) 10/08/2020 12:00 AM PLT 172 11/29/2023 07:11 AM Imaging (focused): reviewed CONSULTS ORDERED: ADULT SPEECH THERAPY CONSULT IP (ACUTE CARE REHAB) REFERRING PHYSICIAN: REF: DASHA COLEY [address] [place] [address] (office) [phone] (fax) PRIMARY CARE PROVIDER: PCP: Dasha Coley MD [address] / [place] [address] (office) [phone] (fax) Note: To contact a physician responsible for this patients hospital care, please call [facility] [phone]. Patricia Cazares DO Resident Physician, PGY-1 Otolaryngology - Head and Neck Surgery documented in this encounter Discharge Instructions * Discharge Instr - AVS* Patricia DeP az DO - 11/29/2023 11:59 AM EDT Post-Op Instructions - Neck dissection Discharge Date: 12/01/[address] Oliver of the department of ENT at [phone] during business hours for any questionsor test results. For after-hours emergencies call [phone] and have your doctor paged. The information below provides you with the instructions and the list of medications you need to betaking following discharge from the hospital. If you have any questions, please ask before leaving.Please carry this letter with you when you see your doctor in the clinic. If you have questions, you can reach us at the numbers above. Diet: Start with clear liquids (jello, tea, apple juice), avoid dairy products (milk, cheese, pudding, ice cream) and fried, greasy foods. Advance to unrestricted diet as tolerated. If nausea should occur, have clear liquids only until soft foods can be tolerated. Activity: A responsible adult must be with the patient for 24 hours after surgery. Rest today and tomorrow, and then increase activity as tolerated. No strenuous activity for 2 weeks. Driving: n/a. Date you may return to work or school: One week Follow up as scheduled. Special Instructions: Contact our clinic at the number listed above for any of the following concerns: Bleeding in Your Neck- Some bruising is normal but you should not have rapid or excess bruising andthis may be owing to bleeding in your neck. If this is severe or you are panicked owing to trouble breathing, sudden swelling in your throat, or are unable to swallow, call 911 immediately. Infection- If you have a temperature above 100.4F by mouth for 2 readings taken 4 hours apart, increased redness and/or warmth at the incision site, puslike drainage, or pain not relieved by pain pills, there may be an infection in your neck. Please call your the ENT clinic. Care for the Surgical Site You may shower 24 hours after the drain is removed. pat dry the incision with a clean towel. Do notsubmerge in water Do NOT apply any ointment or lotion to the incision. Do NOT remove the surgical tape covering your incision. You will be provided with instructions on how to remove the tape gradually after your follow up appointment. documented in this encounter H&P Notes * Molly Stevens MD - 11/29/2023 6:41 AM EDT History & Physical - Otolaryngology [facility]-[address] [address] Name: Rodney Payan Location: [facility]/OR Date: 11/29/2023 Time: 6:41 AM CC: oral tongue squamous cell carcinoma HPI: The patient presents today for scheduled surgery. He denies any changes to health since last clinic visit. Denies recent illness. Denies use of ASA, NSAIDs, or other anticoagulants. Medical History: Patient Active Problem List Diagnosis Mixed dyslipidemia BPH with obstruction/lower urinary tract symptoms Slow urinary stream Nocturia History of kidney stones Past Medical History: Diagnosis Date Mixed dyslipidemia Past Surgical History: Procedure Laterality Date BRONCHOSCOPY W/ BRONCHIAL BIOPSY 07/16/2011 Bronchoscopy with washings and brushings apical segment right upper lobe 07/16/11 Dr. Ly NECK SPINE FUSION (CERV, BELOW C2) 03/07/1990 Dr. Hurley [place] MD ANESTH,LUNG RESEC,THORACOPLASTY REMOVE GALLBLADDER 03/07/1990 REMOVE LUMBAR SPINE LAMINA, 3+ SEGS 03/07/1990 HNP Excision REMOVE TONSILS & ADENOIDS, AGE 12+ age 20 Review of patient's allergies indicates: Allergen Reactions Bee Stings swelling,GI upset Cardizem [Diltiazem] Hives Social History Tobacco Use Smoking status: Former Current packs/day: 0.00 Types: Cigarettes Quit date: 03/07/2010 Years since quittin.7 Smokeless tobacco: Former Substance Use Topics Alcohol use: Yes Comment: occasional Vaping/E-Cigarette Use Vaping/E-Cigarette Substances Vaping/E-Cigarette Devices No family history on file. Review of Systems: Negative unless otherwise indicated in HPI. Physical Exam: Vital Signs: BP: / Pulse: Resp: Temp: Temp Summary: No data recorded SpO2: O2 flow rate: Supplemental O2 Delivery: No acute distress Regular rate and rhythm without murmur Lungs clear to auscultation bilaterally Right lateral tongue scar/lesion Impression: Rodney Payan is a 68 year old male who presents with the above diagnosis for scheduledsurgery. Plan: - NPO - SCDs - ancef - Proceed with right partial glossectomy, neck dissection documented in this encounter Consult Notes * Malinda Simmons, JANETTE-NUT TIGHTENER - 11/29/2023 3:08 PM EDTAssociated Order(s): ADULT SPEECH THERAPY CONSULT IP (ACUTE CARE REHAB) CLINICAL BEDSIDE SWALLOW EVALUATION - Speech-Language Pathology [facility]-[address] [address] Name: Rodney Payan Location: [facility] B640/A Date: 11/29/2023 Time: 3:08 PM Patient Status: Inpatient Insurance: Payor: [facility] GOLD / Plan: [employer] GOLD CLASSIC 360 RX [id number]-1D / Product Type: *No Product type* / GENERAL INFORMATION: Admission Date: 11/29/2023 Referring Physician: Dr. Gooden Pertinent Medical History: Per [facility] chart review, pt is a "68 year old male with history of cT1 N0 M0 oral cavity SCCa (right oral tongue) s/p right partial glossectomy, right neck dissection (levelsIB - IV) Patient transported to PACU without issue or acute event Sign out given to PACU team" Current Diet/Dysphagia History: NPO. Pt cleared for any consistency as tolerated. Cognitive-Communication: Pt alert; followed directions, communicated wants and needs, and conversedappropriately Barriers to Learning: Medical Status Hearing Acuity: Deferred Best Learning Method: Auditory Pain: Patient has complaints of pain. Pain located - throat. ORAL MECHANISM EXAM: Facial Symmetry Within functional limits Labial Function Within functional limits Lingual Function Limited elevation and depression Velar Function DNT Dentition: Edentulous (has dentures, but did not use for eval) PROTECTIVE MECHANISMS: Volitional Swallow Within Functional Limits Volitional Throat Clearing Did not test Volitional Cough Did not test Vocal Quality Impaired-Rough Tracheostomy Tube: Not Present Ventilator Status: Not Applicable O2 via NC 2L SWALLOWING FUNCTION: ORAL PREPARATION PHASE: Puree (IDDSI Level 4): Within functional limits (WFL) Soft and Bite-Sized (IDDSI Level 6): Decreased Mastication Thin Liquid (IDDSI Level 0): WFL ORAL PHASE: Puree (IDDSI Level 4): WFL Soft and Bite-Sized (IDDSI Level 6): Difficulty with chewing; swallowed bolus whole Thin Liquid (IDDSI Level 0): WFL PHARYNGEAL PHASE Puree (IDDSI Level 4): Suspected WFL Soft and Bite-Sized (IDDSI Level 6): Suspected WFL Thin Liquid (IDDSI Level 0): Suspected WFL DIAGNOSIS/IMPRESSIONS: Pt fed self trials of thin liquids, applesauce, and diced peaches. Oral transfer functional for pureed solids and thin liquids. Pt noted difficulty with mastication of diced peaches and reported swallowing them whole. Likely related to edentia and decreased lingual sensation. Pharyngeal dysphagia not suspected as pt without s/sx of aspiration and/or distress. Rehab Potential: Good RECOMMENDATIONS/PLAN: Videofluoroscopy: Not indicated at this time Diet Level: Puree Liquid Level: Thin Presentation of Medication: As tolerated Positioning: Seated with 90 degree hip flexion Level of Supervision: intermittent Use of Straws: not allowed Compensatory Techniques to be Utilized During PO Intake: Small Bites/Sips, Alternate Solids & Liquids, and Slow Rate of Intake Compensatory Strategies Utilized: as above Additional findings: NA ANTICIPATED FREQUENCY (ON EVAL): 1-3 times per week TREATMENT PLAN: Swallowing Treatment: Indicated Treatment Goals: Patient will improve oral stage function to tolerate chewable solids. Additional Recommendations: Oral rinses following oral intake The above information was discussed with the patient/family. Yes The patient/family was in Agreement documented in this encounter Nursing Notes * Kimmy Brewer RN - 11/30/2023 5:38 AM EDT Clinical Goal(s): Pt will remain free from falls (11/29/23 2300) Possible barriers to meeting goal(s)/advancing plan of care: Dx Stability of the patient: Moderately stable - low risk of patient condition declining or worsening Summary regarding today's goal(s): Met: Pt remained free from falls this shift Recommendations: Will continue hourly rounding, call krueger in reach, fall precautions in place * Herb Rosen RN - 11/29/2023 1:23 PM EDT Dual Licensed Skin Assessment completed by herb justice rn and ozzy edouard rn. The patient is/has a N/A Skin Breakdown (includes non blanchable erythema): No * Ozzy Edouard RN - 11/29/2023 1:22 PM EDT Dual Licensed Skin Assessment completed by Ozzy Edouard and Herb Rosen. The patient is/has a N/A Skin Breakdown (includes non blanchable erythema): No * Debbie Minor RN - 11/29/2023 12:37 PM EDT PERIOP TO IP HANDOFF COMMUNICATION NOTE [facility]-[address] [address] Name: Rodney Payan AGE: [age] year old Location: OR [facility]/OR Date: 11/29/2023 Attention to: Brandon Simmons Report from: Debbie Minor RN Patient arriving via: Bed Time of call: 12:37 PM Phone Ext: [phone] Reason for SBAR (Situation, Background, Assessment, Recommendation) handoff: OR Sending to: [id number] Emotional/Personal Events & Special Needs: none Prescriptions in chart: No Code Status: Full Code Safety Concerns: no safety concerns identified Allergies: Bee stings and Cardizem [diltiazem] PMH: Past Medical History: Diagnosis Date Mixed dyslipidemia PSH: Past Surgical History: Procedure Laterality Date BRONCHOSCOPY W/ BRONCHIAL BIOPSY 07/16/2011 Bronchoscopy with washings and brushings apical segment right upper lobe 07/16/11 Dr. Ly NECK SPINE FUSION (CERV, BELOW C2) 03/07/1990 Dr. Hurley [place] MD ANESTH,LUNG RESEC,THORACOPLASTY REMOVE GALLBLADDER 03/07/1990 REMOVE LUMBAR SPINE LAMINA, 3+ SEGS 03/07/1990 HNP Excision REMOVE TONSILS & ADENOIDS, AGE 12+ age 20 Isolation: Isolation: Procedure: Right partial glossectomy - Right neck dissection (levels IB - IV) - Placement of Acellular dermal matrix graft 3 cm x 4 cm Type of Anesthesia: General endotracheal anesthesia Block: n/a IV intake: 2000 mL EBL: OR: 20 mL PACU: 0 mL Urine output: OR 0 mL PACU 0 mL IUBC (Bernardo): Incision location: R neck and tongue Dressing location: R neck Time of last skin assessment: 1200 Pressure injuries or areas of concern: none Lines: Peripheral Line Left;Lower;Posterior Arm 20 Gauge (Active) Status Flushes easily 11/29/23 1200 Tubing Changed N/A 11/29/23 1200 Phlebitis Scale 0 11/29/23 1200 Infiltration Scale 0 11/29/23 1200 Site Description (Other) Without redness, swelling or drainage 11/29/231199 Site Intervention Flushed 11/29/231199 Dressing Assessment Dressing clean, dry, and intact;Transparent dressing 11/29/231199 Dressing Intervention None required 11/29/231199 Number of days: 0 Peripheral Line Right Hand 20 Gauge (Active) Status Capped/Locked;Flushes easily 11/29/231199 Tubing Changed N/A 11/29/231199 Phlebitis Scale 0 11/29/231199 Infiltration Scale 0 11/29/231199 Site Description (Other) Without redness, swelling or drainage 11/29/231199 Site Intervention None required 11/29/231199 Dressing Assessment Dressing clean, dry, and intact;Transparent dressing 11/29/231199 Dressing Intervention None required 11/29/231199 Number of days: 0 Drain Avel Romeo Anterior;Right Neck (Active) Status Bulb Suction 11/29/23 113 Suction Bulb Suction 11/29/23 113 Site Description Not visualized, dressing intact 11/29/23 113 Dressing Assessment Dressing clean, dry, and intact 11/29/231129 Description of Output Serosanguineous 11/29/231129 Dressing Intervention None required 11/29/231129 Number of days: 0 Vital Signs: BP: 125/55 (11/29/23 1230) Temp: 36 C (96.8 F) (11/29/23 1200) Pulse: 98 (11/29/23 1230) Resp: 13 (11/29/23 1230) SpO2: 94 % (11/29/23 1230) O2 flow rate: 2 L/MIN (11/29/23 1230) Glucose (Bedside): 102 (11/29/23 0713) Time of last pain medication: 1104 Med: Dilaudid Time of last antibiotic: 0757 Med: ancef Time of last antiemetic: 1033 Med: zofran SUPERVISOR ROVING: no Drips: no Neurological: Neuro WNL: WNL - within normal limits (11/29/23 1130) Speech: Clear (11/29/23 113) Level of Consciousness: Alert (11/29/23 1200) RUE Motor Strength: 5-Active movement with full resistance (11/29/23 1200) RLE Motor Strength: 5-Active movement with full resistance (09/24/24 1200) LUE Motor Strength: 5-Active movement with full resistance (11/29/23 1200) LLE Motor Strength: 5-Active movement with full resistance (11/29/231199) Right Pupil Size (mm): 3 (11/29/23 1130) Right Pupil Reaction: Reactive (11/29/23 1130) Left Pupil Size (mm): 3 (11/29/23 1130) Left Pupil Reaction: Reactive (11/29/23 1130) Coma Score: 15 (11/29/23 1200) Respiratory: Respiratory WNL: X - Exceptions to WNL as documented below (11/29/231199) Cough: Non-Productive (11/29/231199) Depth/Rhythm: Regular (11/29/231199) Dyspnea Occurance: With Exertion (11/29/23 0715) Effort: Unlabored (11/29/23 0715) Oxygen therapy/ Mechanical vent Supplemental O2 Delivery: Nasal Cannula (11/29/23 1230) O2 flow rate: 2 L/MIN (11/29/23 1230) Cardiac: Cardiovascular WNL: WNL - within normal limits (11/29/231199) Rhythm: NSR (11/29/231199) GI: GI WNL: X - Exceptions to WNL as documented below (11/29/231199) Abdomen: Soft;Non-distended;Bowel sounds hypoactive (11/29/231199) : WNL: X - Exceptions to WNL as documented below (11/29/231199) Urine Description: (no urine to assess at this time) (11/29/231199) Due to Void: 1730 Integumentary:Integumentary WNL: X - Exceptions to WNL as documented below (11/29/231199) Skin Description: Dry;Warm (11/29/231199) Family updated on transfer: yes Additional Assessment Information: Pt needs swallow study before diet. * Debbie Minor RN - 11/29/2023 11:51 AM EDT Dual Licensed Skin Assessment completed by Debbie Watkins RN and Tho CONRAD. The patient is/has a N/A Skin Breakdown (includes non blanchable erythema): Yes - Surgical/Procedural changes only. * Ester Karimi RN - 11/29/2023 7:16 AM EDT Dual Licensed Skin Assessment completed by ANAMARIA tapia and ANAMARIA dorantes. The patient is/has a N/A Skin Breakdown (includes non blanchable erythema): No * Pacheco Posadas RN - 11/25/2023 9:45 AM EDT NO ANESTHESIA EVAL REQUESTED PER CASE DOCUMENTATION. PREOP PATIENT INFORMATION AND EDUCATION: MEDICATION INSTRUCTIONS: The day of surgery/procedure, you may TAKE the following medications with a sip of water up to 2 hours prior to your arrival time: Metoprolol Albuterol inhaler as directed if needed-bring this the day of surgery Trelegy Ellipta inhaler as directed Atorvastatin Pramipexole AVOID/ DO NOT TAKE any medications the morning of surgery/procedure that are not listed above. STOP taking the following medications the noted number of days prior to surgery/procedure unless otherwise specified by your surgeon: Please follow surgeon's instructions regarding use of Aspirin, Coumadin, Plavix, Eliquis, and any other blood thinner including NSAIDs (non-steroidal anti- inflammatory drugs, eg, Advil, Ibuprofen, Motrin, Aleve, Naproxen, Vioxx); if you have any questions regarding your anticoagulation therapy please contact your surgeon's clinic. Please verify any proposed stoppage of your anticoagulation therapy with the agent's prescribing provider. 10 days prior to surgery/procedure Stop all Herbal supplements, Green Tea, Turmeric, Melatonin, CBD, THC, etc. Stop all Vitamins (including Vitamin E) 24 hours prior to surgery/procedure DO NOT consume any alcohol. DO NOT use medical marijuana. DO NOT smoke or use tobacco products of any kind after midnight prior to surgery. *Using any of these products may increase your risks of procedural complications. IF IT IS LESS THAN RECOMMENDED STOPPAGE TIME PLEASE STOP AT TIME OF NOTIFICATION. FASTING RECOMMENDATIONS: To reduce risk, it is important for all elective surgery patients to follow the specific fasting guidelines listed below. If you have received more stringent guidelines, please follow the MOST RESTRICTIVE guidelines that you have been provided. DO NOT EAT after midnight on the night prior to your surgery date. You are allowed to drink clear liquids up to two hours prior to arrival time to the hospital or surgery center. Examples of clear liquids include water, clear fruit juice without pulp, clear carbonated beverages, clear tea, and black coffee. Any drinks given by your surgical service take as directed. /pediatric patients who currently drink breast milk, formula, and non-human milk must not eat after midnight. These patients are allowed to drink only the liquids listed below up to two hours prior to arrival time to the hospital or surgery center: Ingested Material Minimum Fasting Time Clear liquid After midnight up to 2 hours prior to arrival time Breast milk Up to 4 hours prior to arrival time formula Up to 6 hours prior to arrival time Non-human milk Up to 6 hours prior to arrival time THE DAY BEFORE YOUR SURGERY: -Drink plenty of fluid the day before your surgery. Contact your surgeon's office if you develop any of the following within 2 weeks of surgery: A cold Infection Fever Shingles Chicken pox or exposure to chicken pox Open areas such as scrapes, cuts, weir or other skin conditions Rashes GENERAL INSTRUCTIONS FOR PREPARING FOR SURGERY: BATHING INSTRUCTIONS: Bathe the evening prior to and the morning of surgery/procedure. Cleanse your body using ONLY anti-bacterial soap (eg, Dial, Safeguard) or any specific soap/cleansers and instructions provided by your surgeon (eg, Chlorhexidine). -You should brush your teeth the morning of surgery. Do NOT apply any lotions, powders, sprays, creams, oils, make-up, or deodorants after bathing. No hairspray, or nail puerto rican on fingers or toes. Day of surgery/procedure do not use tampons. If you wear contacts wear your eyeglasses if available otherwise bring your contact supplies with you to remove them prior to your surgery/procedure. If you wear glasses or dentures, please bring cases in which you can store them during your surgery. Please remove all piercings and jewelry and leave them at home. Wear comfortable and loose clothing. -Please leave all valuables at home. -If you use a CPAP and are staying overnight, please bring your mask and tubing with you to the hospital. -If you use an assistive mobility device (walker, cane, etc), please label it with your name and bring to hospital. -An escort residential driver is required if you are being discharged the same day of the surgery. You should have a responsible adult over the age of 18 [address] you home. This person should be present with youin the hospital at the time of discharge and for the first 24 hours after the surgery to support your needs. If you are taking a taxi home, you must have your responsible green party accompany you in the taxi ride home at the time of discharge. OR times subject to change. Please check voicemCASHil messages the day/evening before your surgery forany updates. PRE-OP: You will be taken to the pre-op area where your vital signs (blood pressure, pulse and temperature)will be taken. Any preparations that need to be done will be done there. When it is time for your surgery, you will be taken to the operating room. PARENTS OF PEDIATRIC PATIENTS WILL BE ALLOWED TO STAY WITH THEIR CHILDREN UNTIL THEY ARE ESCORTED TO THE OPERATING ROOM OUTPATIENT SURGERY PATIENTS: After your surgery you will be taken to the Same Day Surgery Unit when you are awake and will go home from there. You will get instructions about your home care before you leave. Arrange to have someone drive you home from the hospital. You may not drive for 24 hours after anesthesia. You must havean adult stay with you at home for 24 hours after your operation. This is very important. If you are not able to comply with these guidelines, your Short Stay surgery cannot be done. ADMISSION PATIENTS: After your stay in the recovery area, you will be taken to your room. Your family may visit you in your room based on current visitation policy. If a next day discharge is expected, it is important to make arrangements for a residential driver to take you home. Please be aware our visitation policies are subject to change Professionals, attendants, caregivers or family members are allowable visitors for patients with intellectual, developmental or cognitive disabilities, communication barriers or behavioral concerns. Because patients' and families' needs vary, they will be taken into account when applying visitation restrictions. [facility]: Contact # [phone] Directions to Surgical Suite in from the Liza Entrance The Surgical Waiting Room can be found in the Lobby of [facility]. Enter through Main Lobby Entrance and the Waiting Room is directly in front of you. Proceed to check in and give them your name. Directions to Surgical Suite from the East Entrance Enter the East entrance and follow the hallway to the J elevator. Take the J elevator up to Level 1. Continue down the long hallway to the main [facility] Lobby. The Surgical Waiting Room will be on your Right. Proceed to check in and give them your Name. Directions to Surgical Suite from the Parking Garage Enter the [facility] lobby and proceed down the wyman to the left. At the end of the wyman, turn right. Continue down the long hallway to the main [facility] Lobby. The Surgical Waiting Room will be on your Right. Proceed to check in and give them your Name. Pre-operative chart review completed-instructions provided based on current medication list in [facility] Presurgery instructions sent to patient via Merku message. 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) POST-OP DIAGNOSIS: Same PROCEDURE: - Right partial glossectomy - Right neck dissection (levels IB - IV) - Placement of Acellular dermal matrix graft 3 cm x 4 cm SURGEON: Bryan Oliver DO ASSISTANTS: Pramod Gooden DO ANESTHESIA: General endotracheal anesthesia OPERATIVE FINDINGS: - Right lateral tongue with 1.5 x 2 cm lesion at site or prior biopsy excised with 1 cm margins in all directions and sent for frozen section; margins reported as clear of tumor (closest margin 4 mm) - Enlarged right external jugular chain lymph node - Scattered lymph nodes in right neck levels IB-IV - Right CN XI identified and preserved DRAINS and/or PACKS: EDSON wong 1 in right neck ESTIMATED BLOOD LOSS: 20 mL FLUIDS: Per anesthesia record URINE: 0 mL SPECIMEN(s) OBTAINED and DISPOSITION: ID Source Tests Priority Auth Provider Collected By Collect Time Fzn Formalin Time 1 Tongue SURGICAL PATHOLOGY Leonardo Oliver DO [[id number]] Leonardo Oliver, 11/29/23 0853 Yes Description: right tongue lesion, stitch jurado anterior 2 Neck SURGICAL PATHOLOGY Leonardo Oliver DO [[id number]] Leonardo Oliver, 11/29/23 0937 Description: right neck, level 1B 3 Lymph Node SURGICAL PATHOLOGY Leonardo Oliver DO [[id number]] Leonardo Oliver, 11/29/23 0943 Description: right external jugular lymph nodes 4 Neck SURGICAL PATHOLOGY Leonardo Oliver DO [[id number]] Leonardo Oliver, 11/29/23 1022 Description: right neck level 2A to 4, stitch jurado 2A INDICATIONS & HISTORY: This is a 68 year old year old male with 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 He presents today for scheduled surgery. DESCRIPTION OF OPERATION: A time-out was held, and the patient was identified and the procedure verified. The patient identified. With the patient in the supine position, general anesthesia was induced via an nasally placed endotracheal tube. The neck was extended using a shoulder roll. The endotracheal tube was secured. Sequential compression devices were placed on the patient bilaterally. The bed was then turned 180 degrees. Attention was first directed to the oral cavity. The oral cavity was inspected (see findings above). The lesion was excised with 1 cm margins in all directions using a combination of bovie and harmonic scalpel and sent for frozen section; margins reported as clear of tumor (closest margin 4 mm). A single layer acellular dermal matrix that was secured in place with 4-0 chromic gut sutures. Attention was then directed to the right lateral neck. A horizontal neck incision was delineated with a marking pen. The incision was subsequently injected with 1% lidocaine with 1:100,000 epinephrine. The patient was then prepped and draped in standard sterile fashion. The skin was incised with the 15 blade and carried down through the subcutaneous tissue using the bovie. Bovie electrocautery was used to divide the subcutaneous tissues and dissect down through the platysma. Superior and inferior sub-platysmal flaps were then elevated using traction and counter traction techniques in order tokeep intact the deep cervical fascia investing the sternocleidomastoid muscle. Attention was then directed to level IB on the right. The fascia and facial vein inferior to submandibular gland were carefully lifted off of the submandibular gland and reflected superiorly to preserve the marginal mandibular nerve (the nerve was not identified but felt to be preserved by the nature of the dissection). The facial artery was identified and ligated. Dissection then began along theangle of the mandible using blunt dissection and harmonic lucas. This included dissection of the submandibular gland and the lymph nodes adjacent to the gland. The vessels, and submandibular duct were ligated with the Harmonic scalpel as the dissection proceeded down to the posterior digastric muscle. The contents were also dissected off the border of the mylohyoid muscle. The remainder of the contents of level IB were dissected free and sent to surgical pathology. During the dissection both the lingual and the hypoglossal nerves were identified and carefully preserved. Attention was then directed to the anterior border of the SCM. The fascia was dissected off the anterior border of the SCM starting superiorly and CN XI was quickly identified here. Dissection continued around the SCM muscle and the SCM was then retracted laterally. The fatty lymph node packet of level IIA, III and IV were elevated down to the floor of the cavity and then medially. Several of thecervical rootlets were identified and taken with the specimen. Much time here was spent dissecting the cervical fatty lymph node packets from the floor. From an inferior to superior fashion the lymphnodes of levels IIA, III and IV were dissected free. Following this, dissection proceeded medially and superior toward the great vessels. The jugular vein was identified and skeletonized with a 15 blade and bipolar cautery. The vagus nerve and carotid were also idenfied and the cervical lymph node fat packet dissected free of these laterally. We then directed our attention to the medial border ofthe right lateral neck dissection. Starting along the lateral border of the strap muscles, the inves ting fascia was elevated and dissected off laterally toward the carotid sheath. The right lateral neck dissection including levels IIA, III, IV was then umbilicated from medial attachments and removed en bloc and sent to surgical pathology. Satisfied with the procedure, the right neck wound was thoroughly irrigated and hemostasis was assured. A number 7 flat avel romeo drain was placed coming from the right neck. This was sutured into the skin with 2-0 silk. Surgicel was placed in the gutter on the right. The incision was then closed in a multilayer fashion using 3-0 Vicryl for the platysma and deep dermal layers. Running subcuticular 4-0 monocryl was used to close the skin. Dermabond and steri-strips were then placed. The patient was allowed to emerge from anesthesia. All counts were reported by nursing as correct at the conclusion of the procedure. The patient was extubated without difficulty and was transported [facility] toperative anesthesia care unit in stable condition. DISPOSITION: The patient was transferred to the Post-Anesthesia Care Unit. APPARENT INTRAOPERATIVE COMPLICATIONS: None PATIENT CONDITION: Stable ATTESTATION: Dr. Oliver was present for the snyder portions of the procedure. Pramod Gooden DO Resident Physician Otolaryngology -Head & Neck Surgery [address] [address] cc: Professional Reimbursement and Compliance documented in this encounter Miscellaneous Notes * Ancillary Progress Note - Tiffanie Ortiz RN - 12/01/2023 9:09 AM EDT CARE MANAGEMENT - ADULT DISCHARGE NOTE [facility]-[address] [address] Name: Rodney Payan Location: [facility] B640/A Date: 12/01/2023 Time: 9:09 AM The following coordination of care and discharge plan has been coordinated with the care team, patient, family and/or caregiver according to the patients needs and preferences. Discharge Discharge Second Notice Important Message from Medicare delivered: Not Applicable (12/01/23908) Was Caregiver/Family/Facility contacted regarding discharge: Yes (12/01/23908) Discharge Transportation: Family/Friends drive (12/01/23908) Final Discharge Plan (Complete only at time of Discharge): Home - Self Care (12/01/23908) Destination - Admitted Since 11/29/2023 No services have been selected for the patient. Narrative: Pt discharging to home. No needs identified by CM. Family/friends anticipated to providedischarge transportation. Please contact CM with any concerns. * Care Plan - Yasmine Mary RN - 11/30/2023 5:08 PM EDT Clinical Goal(s): will remain free from falls (11/30/23 0700) Possible barriers to meeting goal(s)/advancing plan of care: postop Stability of the patient: Moderately stable - low risk of patient condition declining or worsening Summary regarding today's goal(s): Met: did not fall Recommendations: continue purposeful hourly rounds, assist with ambulation, call krueger within reach * Ancillary Progress Note - Malinda Simmons CCC-NUT TIGHTENER - 11/30/2023 3:46 PM EDT PROGRESS NOTE - Speech-Language Pathology [facility] [address] Name: Rodney Payan Location: [facility] B640/A Date: 11/30/2023 Time: 3:46 PM Patient Status: Inpatient Insurance: Payor: [facility] Card Capture Services / Plan: [facility] Card Capture Services CLASSIC 360 RX MH-1D / Product Type: *No Product type* / Pt seen for follow up dysphagia therapy. Last seen 11/29/23 with recs for PO pureed solids with thinliquids. Pt requesting diet advancement. Had his dentures in place without discomfort. Pt fed self PO trials of thin liquids and soft & bite-sized solids. Oral transfer mildly delayed due to post surgical changes, but overall functional without oral residue post swallow. Pharyngeal dysphagia not suspected as pt without s/sx of aspiration or distress. Recommendations: PO soft & bite-sized solids with thin liquids Meds as tolerated Intermittent supervision NUT TIGHTENER will continue to follow * Progress Notes - Post-Op Global - Molly Stevens MD - 11/30/2023 12:50 PM EDT ADDENDUM: Patient seen on afternoon rounds with Dr. Oliver. - possibly can go tomorrow with drain - Remainder of plan as detailed below. Molly Stevens MD 11/30/2023 3:46 PM PROGRESS NOTE - Otolaryngology [facility]-[address] [address] Name: Rodney Payan Location: [facility] B640/A Date: 11/30/2023 Time: 12:50 PM SUBJECTIVE: Tolerating diet Tolerable pain OBJECTIVE: BP: 121 mmHg/63 mmHg (11/30/23 1154) Pulse: 88 (11/30/23 1154) Resp: 15 (11/30/23 115) Temp: 36.61 C (11/30/23 1157) Temp Summary: Temp Min: 35.7 C (96.3 F) Max: 36.7 C (98.1 F) SpO2: 99 % (11/30/23 1154) O2 flow rate: 2 L/MIN (11/30/23 0830) Supplemental O2 Delivery: Nasal Cannula (11/30/23 115) Vital Signs Last 24 Hours: Systolic BP: Most Recent Systolic BP Av.8 mmHg Min: 103 mmHg Max: 133 mmHg Temperature: Most Recent Temperature Av.3 C Min: 35.72 C Max: 36.72 C Pulse: Pulse Av.2 Min: 88 Max: 103 Respirations: Resp Av.5 Min: 15 Max: 18 SpO2: SpO2 Av.8 % Min: 94 % Max: 99 % PHYSICAL EXAMINATION: Resting in bed No distress Right oral tongue with Acell in place Right neck incision C/D/I with steri-strips EDSON drain in right neck with sanguinous drainage IMPRESSION and PLAN: Rodney is a 68 year old male with 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 - CHANNELER RUNNER meds - Pulse ox when in bed or sleeping at night. - Dispo: anticipate discharge pending drain Patient will be discussed with Dr. Melody Stevens MD Otolaryngology - Head and Neck Surgery Resident 11/30/2023 12:52 PM * Ancillary Progress Note - Tiffanie Ortiz RN - 11/30/2023 10:50 AM EDT CARE MANAGEMENT - ADULT TRANSITION NOTE [address] [address] Name: Rodney Payan Location: [facility] B640/A Date: 11/30/2023 Time: 10:50 AM Risk Stratification Readmission Risk Score: 9.85 (11/30/23 0801) Caregiver Information Patient Contacts Name Relation Home Work Mobile Linda Payan Spouse [phone] Transition of Care Checklist Narrative: Chart reviewed, pt discussed in IDT rounds, pt is not medically ready for discharge today. Pt is s/p right partial glossectomy and neck dissection on 11/28. EDSON drain x 1. Speech eval today. Anticipate discharge home in 1-2 days. No CM needs identified at this time. CM will continue to follow throughout hospitalization for developing discharge needs. Anticipated Transportation at Discharge: family Patient/Family Expectations: home Transition Planning Additional Considerations: none Care Management will continue to monitor and assist with discharge planning needs * Ancillary Progress Note - Christopher Pruitt RRT - 11/29/2023 1:08 PM EDT PATIENT DRIVEN PROTOCOL - Respiratory Care Services [address] [address] Name: Rodney Payan Location: [facility] B640/A Date: 11/29/2023 Time: 1:08 PM Patient Driven Protocol Summary: Initial evaluation performed. This Treatment Plan and medications will be reviewed by the Primary Care Team for any contraindications. Respiratory Care Treatment Plan Aerosol Therapy Treatment:: Inhaler(s) QDAY with Trelegy Ellipta (fluticasone furoate 100 mcg, umeclidinium 62.5 mcg and Vilanterol 25 mcg inhalation powder) / 1 inhalation. to reduce work of breathing and improve pulmonary gasexchange and suppress bronchial inflammation and edema by the use of systemic steroid sparing therapy. Additional Aerosolized Treatments: Inhaler(s) PRN with Albuterol Sulfate: 2 puffs. to reduce work of breathing and improve pulmonary gas exchange. The patient will be re-evaluated: No re-evaluation needed. Indications for treatment met. The Triage Level is: (Assessment Score = 6 -10) Level 4. Triage Level Definitions: Level 1 Severe Respiratory/Airway Compromise Level 2 Moderate Respiratory/Airway Compromise or high risk for pulmonary complications Level 3 Mild Respiratory/Airway Compromise or moderate risk for pulmonary complications Level 4 Episodic Respiratory/Airway Compromise or low risk for pulmonary complications Level 5 No Respiratory/Airway Compromise Triage 1 Triage 2 Triage 3 Triage 4 Triage 5 greater than 20 16 - 20 11 - 15 6 - 10 0 - 5 Medical Record Assessment Clinical Findings Pulmonary Status: 3 - Pulm Impairment (acute or chronic) w/o exacerbation, or 1 - 2 rib fractures Surgical Status: 1 - General Surgery Chest X-Ray: 0 - Not Performed or performed greater than 3 days ago Assessment Score: 4 Patient Assessment Clinical Findings Respiratory Pattern: 0 - RR 12 - 20; Patient only gets breathless with strenuous exercise. Breath Sounds: 0 - Clear to auscultation Cough Effectiveness: 0 - Strong non-productive Sputum Production: 0 - No sputum production Level of Activity: 1 - Ambulatory with assist O2 needed to keep SpO2 greater than or equal to 92%: 1 - Oxygen 1-3 LPM or FiO2 less than 35% Assessment Score: 2 Total Assessment Score: 6 Breath Sounds: Inspiratory and expiratory clear bilaterally.. Cough and Sputum: An effective cough produced no sputum... Vital Signs: Resp: 20 (11/29/23 1245) Pulse: 100 (11/29/23 1245) Temp: 36 C (96.8 F) (11/29/23 1200) BP: 91/57 (11/29/23 1245) SpO2: 94 % (11/29/23 1245) Primary Service: Otolaryngology. Admitting Diagnosis: Squamous cell carcinoma of tongue (HCC) [C02.9] Tongue lesion [K14.8] Pulmonary Diagnosis: COPD. Prescriptions/Home Medications/Durable Medical Equipment: Trelegy Qday and Albuterol PRN. 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) s/p right partial glossectomy, right neck dissection (levels IB - IV) Patient transported to PACU without issue or acute event Sign out given to PACU team OBJECTIVE: BP: 115 mmHg/61 mmHg (11/29/23 1140) Pulse: 96 (11/29/23 1140) Resp: 15 (11/29/23 1140) Temp: 36 C (11/29/23 1130) Temp Summary: Temp Min: 36 C (96.8 F) Max: 36.4 C (97.5 F) SpO2: 94 % (11/29/23 1140) O2 flow rate: 2 L/MIN (11/29/23 1140) Supplemental O2 Delivery: Nasal Cannula (11/29/23 1140) Vital Signs Last 24 Hours: Systolic BP: Most Recent Systolic BP Av.3 mmHg Min: 96 mmHg Max: 177 mmHg Temperature: Most Recent Temperature Av.2 C Min: 36 C Max: 36.39 C Pulse: Pulse Av.8 Min: 79 Max: 98 Respirations: Resp Av.8 Min: 12 Max: 16 SpO2: SpO2 Av % Min: 94 % Max: 99 % PHYSICAL EXAMINATION: Resting in bed No distress Right oral tongue with Acell in place Right neck incision C/D/I with steri-strips EDSON drain in right neck with sanguinous drainage IMPRESSION and PLAN: Rodney is a 68 year old male with 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 - CHANNELER RUNNER meds - Pulse ox when in bed or sleeping at night. - Dispo: anticipate discharge pending Patient will be discussed with Dr. Melody Gooden DO 11/29/2023 11:44 AM documented in this encounter Plan of Treatment Upcoming Encounters Date Type Department Care Team (Late st Contact Info) Description 12/12/2023 1:30 PM EDT Office Visit Otolaryngology/Head & Neck/Facial Plastic Surgery [address] [place] [address] Leonardo Oliver DO [address] [place] [address] 05/16/2024 10:30 AM EDT Office Visit Urology, [facility] [address] [facility] [place] [address] Sigifredo Wright MD [address] [place] [id number] Pending Results Name Type Priority Associated Diagnoses Date /Time SURGICAL PATHOLOGY Pathology Routine Squamous cell carcinoma of tongue (HCC) Tongue lesion 11/29/2023 8:53 AM EDT Scheduled Orders Name Type Priority Associated Diagnoses Orde r Schedule SURGICAL PATHOLOGY Pathology Routine Squamous cell carcinoma of tongue (HCC) Tongue lesion Release Upon Ordering for 1 Occurrences starting 11/29/2023, 1 completed Health Maintenance Due Date Last Done Comments [...] this encounter Medical Devices Implanted Type Area Boiler Control Technician Device Identifier Shelf Expiration Date Model / Serial / Lot Cytal Wndmtx 1lyr 7x10cm - [id number] - [id number] Implanted:Qty: 1 on 11/29/2023 by James Gooden DO at OR [facility] Right: Mouth [employer] [id number] 05/04/2025 [id number] / [id number] / [id number] documented as of this encounter Procedures Procedure Name Priority Date/Time Associated Diagnosis Comments GLUCOSE METER, POINT OF CARE EULOGIO 11/29/2023 10:14 AM EDT GLUCOSE METER, POINT OF CARE EULOGIO 11/29/2023 7:11 AM EDT BASIC METABOLIC PANEL STAT 11/29/2023 7:11 AM EDT ABO/RH STAT 11/29/2023 7:11 AM EDT TYPE AND SCREEN STAT 11/29/2023 7:11 AM EDT CBC STAT 11/29/2023 7:11 AM EDT PARTIAL REMOVAL OF TONGUE,NECK SURG 11/29/2023 6:45 AM EDT Squamous cell carcinoma of tongue (HCC) Tongue lesion documented in this encounter Results * GLUCOSE METER, POINT OF CARE (11/29/2023 10:14 AM EDT) GLUCOSE - POCT 116 70 - 120 mg/dL 11/29/2023 10:17 AM EDT [facility] [employer] [facility] Blood Whole blood specimen / Unknown 11/29/2023 10:14 AM EDT 11/29/2023 10:17 AM EDT Leonardo Oliver DO LAB POINT OF CAR E TEST DOCKED DEVICE UNSOLICITED RESULTS [facility] [address] [place] [address] * ABO/RH (11/29/2023 7:11 AM EDT) Pathologist [facility] [place] ABO A 11/29/2023 8:12 AM EDT LABORATORY [facility] BLOOD BANK Rh Positive 11/29/2023 8:12 AM EDT LABORATORY [facility] BLOOD BANK Blood Venous blood specimen / Unknown Venipuncture / Unknown 11/29/2023 7:11 AM EDT 11/29/2023 7:16 AM EDT Leonardo Oliver DO LAB BLOOD BANK T EST ORDERABLES LABORATORY [facility] BLOOD BANK [address] [place] [address] * GLUCOSE METER, POINT OF CARE (11/29/2023 7:11 AM EDT) GLUCOSE - POCT 102 70 - 120 mg/dL 11/29/2023 7:19 AM EDT [facility] [employer] [facility] Blood Whole blood specimen / Unknown 11/29/2023 7:11 AM EDT 11/29/2023 7:19 AM EDT Leonardo Oliver DO LAB POINT OF CAR E TEST DOCKED DEVICE UNSOLICITED RESULTS [facility] [address] [place] [address] * BASIC METABOLIC PANEL (11/29/2023 7:11 AM EDT) BUN 18 6 - 20 mg/dL 11/29/2023 7:51 AM EDT [facility] CREATININE 1.1 0.6 - 1.2 mg/dL 11/29/2023 7:51 AM EDT [facility] EGFR 73 >=60 mL/min 11/29/2023 7:51 AM EDT [facility] Comment:eGFR is calculated b ased on the CKD-EPI 2020 equation. SODIUM 139 135 - 146 mmol/L 11/29/2023 7:51 AM EDT [facility] POTASSIUM 4.4 3.5 - 5.1 mmol/L 11/29/2023 7:51 AM EDT [facility] CHLORIDE 102 98 - 107 mmol/L 11/29/2023 7:51 AM EDT [facility] CO2 27 22 - 32 mmol/L 11/29/2023 7:51 AM EDT [facility] ANION GAP 10 7 - 15 mmol/L 11/29/2023 7:51 AM EDT [facility] GLUCOSE 110 70 - 120 mg/dL 11/29/2023 7:51 AM EDT [facility] CALCIUM 9.4 8.4 - 10.2 mg/dL 11/29/2023 7:51 AM EDT [facility] Blood Venous blood specimen / Unknown Venipuncture / Unknown 11/29/2023 7:11 AM EDT 11/29/2023 7:16 AM EDT Leonardo Oliver DO LAB BLOOD ORDERA BLES [facility] [address] [place] [address] * CBC (11/29/2023 7:11 AM EDT) WBC 6.77 4.00 - 10.80 K/uL 11/29/2023 7:28 AM EDT [facility] RBC 4.78 4.50 - 5.25 M/uL 11/29/2023 7:28 AM EDT [facility] HGB 14.2 14.0 - 16.8 g/dL 11/29/2023 7:28 AM EDT [facility] HCT 42.4 40.0 - 48.4 % 11/29/2023 7:28 AM EDT [facility] MCV 88.7 82.0 - 99.5 fL 11/29/2023 7:28 AM EDT [facility] MCH 29.7 27.0 - 34.0 pg 11/29/2023 7:28 AM EDT [facility] MCHC 33.5 32.0 - 36.0 g/dL 11/29/2023 7:28 AM EDT [facility] RDW 12.7 11.5 - 15.5 % 11/29/2023 7:28 AM EDT [facility] PLT 172 140 - 400 K/uL 11/29/2023 7:28 AM EDT [facility] MPV 9.9 6.6 - 11.1 fL 11/29/2023 7:28 AM EDT [facility] nRBCs 0 <=0 /100 WBCs 11/29/2023 7:28 AM EDT LABORATORY [facility] Blood Venous blood specimen / Unknown Venipuncture / Unknown 11/29/2023 7:11 AM EDT 11/29/2023 7:21 AM EDT Leonardo Oliver DO LAB BLOOD ORDERA BLES Performing Organization Address City/State/[facility] Co de Phone Number LABORATORY [facility] [address] [place], [place] [id number] * TYPE AND SCREEN (11/29/2023 7:11 AM EDT) ABO A 11/29/2023 7:59 AM EDT LABORATORY [facility] BLOOD BANK Rh Positive 11/29/2023 7:59 AM EDT LABORATORY [facility] BLOOD BANK Red Blood Cell Antibody Screen Negative 11/29/2023 7:59 AM EDT LABORATORY [facility] BLOOD BANK Specimen Expiration Date 12/02/2023 23:59 11/29/2023 7:59 AM EDT LABORATORY [facility] BLOOD BANK Blood Venous blood specimen / Unknown Venipuncture / Unknown 11/29/2023 7:11 AM EDT 11/29/2023 7:16 AM EDT Leonardo Rochady DO LAB BLOOD BANK T EST ORDERABLES LABORATORY [facility] BLOOD BANK [address] [place] [address] documented in this encounter Visit Diagnoses Diagnosis Tongue cancer (HCC)- Primary Malignant neoplasm of tongue, unspecified site Squamous cell carcinoma of tongue (HCC) Malignant neoplasm of tongue, unspecified site Tongue lesion Other specified conditions of the tongue documented in this encounter Administered Medications Inactive Administered Medications - up to 3 most recent administrations Medication Order MAR Action Action Date Dose Rate Site Acetaminophen (Tylenol) tab 975 mg 975 mg, Oral, Q6H PRN Pain, Mild, Fever >38C(100.5F), Headache, Starting on Tue11/29/23 at 1140, Until Tue12/01/23 at 1326, For 5 days, Avoid in patients with severe hepatic impairment or severe active liver disease. Use for 5 days., Post-op, Post-op Given 12/01/2023 7:45 AM EDT 975 mg Given 11/30/2023 1:26 PM EDT 975 mg Given 11/30/2023 6:07 AM EDT 975 mg atorvaSTATin (Lipitor) tab 10 mg 10 mg, Oral, Q1700, First dose on Tue11/29/23 at 1700, Until Discontinued Given 11/30/2023 5:51 PM EDT 10 mg Given 11/29/2023 4:49 PM EDT 10 mg chlorHEXIDINE (Periogard) 0.12 % oral rinse 15 mL 15 mL, Swish & Spit, [facility], First dose on Tue11/29/23 at 1300, Until Discontinued Given 12/01/2023 7:46 AM EDT 15 mL Given 11/30/2023 10:28 PM EDT 15 mL Given 11/30/2023 5:51 PM EDT 15 mL Enoxaparin (Lovenox) inj 40 mg 40 mg, Subcutaneous, Daily(AM), First dose on Tue11/30/23 at 0900, Until Discontinued, If patient is on warfarin, inform provider if daily INR value is 2 or greater!, Post-op Given 12/01/2023 7:46 AM EDT 40 mg Abdomen Right Lower Given 11/30/2023 8:46 AM EDT 40 mg Ab domen Left Lower Byjgpxcunda-Jeqihihkpmqi-Pjuczxwnbx (Trelegy Ellipta) 200-62.5-25 MCG/ACT inhaler 1 Puff 1 Puff, Inhalation, RESPDAILY, First dose on Tue11/30/23 at 0800, Until Discontinued, NURSING TO FOLLOW PATIENT WITH MDI/DPI ADMINISTRATION Given 12/01/2023 7:48 AM EDT 1 Puff Given By 11/30/2023 8:53 AM EDT 1 Puff IMPACT AR liquid 250 mL, Oral, BID (.AM/PM), First dose on Tue11/29/23 at 2100, Until Discontinued, Post-op Given 12/01/2023 7:45 AM EDT 250 mL Given 11/30/2023 10:28 PM EDT 250 mL Given 11/30/2023 8:47 AM EDT 250 mL isolyte-S pH 7.4 infusion Intravenous, at 25 mL/hr, All Patients EXCEPT Dialysis patients Plasma-LYTE 148, isolyte-S, and isolyte-S pH 7.4 are considered equivalent - including for MAR barcode scanning., CONTINUOUS, Starting on Tue11/29/23 at 0700, Until Tue12/01/23 at 1326, Pre-Op New Bag 12/01/2023 12:39 AM EDT 25 mL/ hr 25 mL/hr Rate Verify 11/30/2023 11:30 PM EDT 25 mL/hr Rate Verify 11/30/2023 6:37 PM EDT 25 mL/hr lidocaine 1 % inj 1 mg 1 mg (0.1 mL), Percutaneous, ONCE PRN Other, Difficult IV starts requiring > 20 guage catheter and/ or by patient request, Starting on Tue11/29/23 at 0623, Until Tue11/29/23 at 0711, For 1 dose, Pre-Op Given 11/29/2023 7:11 AM EDT 1 mg metoprolol succinate XL (toPROL XL) tab 50 mg 50 mg, Oral, Daily(AM), First dose on Tue11/29/23 at 1215, Until Discontinued, Hold for HR less than 60 or SBP below 100 and notify service if dose is held This med should NOT be Crushed or Chewed. Given 12/01/2023 7:46 AM EDT 50 mg Given 11/30/2023 8:46 AM EDT 50 mg naloxone (Narcan) 0.4 MG/ML inj 0.08 mg 0.08 mg, IV Push, PRN Other, If patient is oversedated or Respiratory Rate less than 8, Starting on Tue11/29/23 at 1140, Until Nini 12/01/23 at 1326, Call provider if patient is oversedated or Respiratory Rate is less than 8, Post-op ondansetron (Zofran) inj 4 mg 4 mg, IV Push, Q6H PRN Other, May use for nausea or vomiting if patient unable to take oral ondansetron, Starting on Tue11/29/23 at 1139, Until Nini 12/01/23 at 1326, Post-op ondansetron ODT (Zofran) tab 4 mg 4 mg, On Tongue, Q6H PRN Nausea, Vomiting, Starting on Tue11/29/23 at 1139, Until Nini 12/01/23 at 1326, Post-op oxyCODONE (Oxy IR) tab 5 mg 5 mg, Oral, Q4H PRN Pain, Severe, Pain, Moderate, Starting on Tue11/29/23 at 1140, Until Nini 12/01/23 at 1326, Post-op Given 11/29/2023 4:49 PM EDT 5 m g oxygen GAS Inhalation, OXYGEN, First dose on Tue11/29/23 at 1115, Until Discontinued, Device/Managed by: Low Flow Device, Goal SPO2 (%): Other, Lower-limit SPO2 (%): 88, Upper-limit SPO2 (%): 92, Starting Device: Nasal Cannula, Initial Flow Rate (LPM): 6 LPM for NC; 10 LPM for NRB mask, Lowest Support: Nasal Cannula: Flow 0-6 LPM. Titrate up/down by 1 LPM., Higher Support: Non-Rebreather (NRB) Mask: Minimum of 10 LPM. Titrate to maintain bag inflation., Titration Interval: Q2 minutes and as needed., Notify Provider: Other, Notify Provider [other]: If SpO2 less than 88%, notify provider immediately, If patient is on Room Air in the PACU and SpO2 is greater than 88% but less than 92% place patient on Nasal Cannula If patient is on Room Air in the PACU and SpO2 is less than 88% place patient on NRB Mask Oxygen On 11/29/2023 11:15 AM EDT rOPINIRole (Requip) tab 0.5 mg 0.5 mg, Oral, QHS, First dose on Tue11/29/23 at 2200, Until Discontinued Given 11/30/2023 11:05 PM EDT 0.5 mg Given 11/29/2023 8:41 PM EDT 0.5 mg tamsulosin (Flomax) cap 0.4 mg 0.4 mg, Oral, Daily(AM), First dose on Tue11/29/23 at 1215, Until Discontinued, Administer 30 min after meal. This med should NOT be Crushed or Chewed or opened! ORAL administration only!! Given 12/01/2023 7:46 AM EDT 0.4 mg Given 11/30/2023 8:46 AM EDT 0.4 mg documented in this encounter Active and Recently Administered Medications Times are shown in EDT. Scheduled Medication Order 11/29/2023 11/30/2023 12/01/2023 atorvaSTATin (Lipitor) tab 10 mg 10 mg, Oral, Q1700, First dose on Tue11/29/23 at 1700, Until Discontinued 1648 (Given - Provider: Brandon Simmons RN) 175 (Given - Provider: Yasmine Mary RN) chlorHEXIDINE (Periogard) 0.12 % oral rinse 15 mL 15 mL, Swish & Spit, [facility], First dose on Tue11/29/23 at 1300, Until Discontinued 1646 (Given - Provider: Brandon Simmons RN)1800 (Not Given - Provider: Brandon Simmons RN - Reason: Parameter(s) Not Met - Comment: different dose given at 1646)2040 (Given - Provider: Kimmy Brewer RN) 0847 (Given - Provider: Yasmine Mary, ANAMARIA)131 (Given - Provider: Yasmine Mary RN)175 (Given - Provider: Yasmine Mary RN)2227 (Given - Provider: Deedee Manzo, RN) 07 (Given - Provider: Yasmine Mary RN) Enoxaparin (Lovenox) inj 40 mg 40 mg, Subcutaneous, Daily(AM), First dose on Tue11/30/23 at 0900, Until Discontinued, If patient is on warfarin, inform provider if daily INR value is 2 or greater!, Post-op 845 (Given - Provider: Yasmine Mary RN) 07 (Given - Provider: Yasmine Mary RN) Fluticasone-Umeclidinium- Vilanterol (Trelegy Ellipta) 200-62.5-25 MCG/ACT inhaler 1 Puff 1 Puff, Inhalation, RESPDAILY, First dose on Tue11/30/23 at 0800, Until Discontinued, NURSING TO FOLLOW PATIENT WITH MDI/DPI ADMINISTRATION 0853 (Given By - Provider: Yasmine Mary RN - Comment: given by Talisha SINGH) 07 (Given - Provider: Yasmine Mary RN) IMPACT AR liquid 250 mL, Oral, BID (.AM/PM), First dose on Tue11/29/23 at 2100, Until Discontinued, Post-op 2039 (Given - Provider: Kimmy Brewer RN) 846 (Given - Provider: Yasmine Mary RN)2227 (Given - Provider: Deedee Manzo, ANAMARIA) 0745 (Given - Provider: Yasmine Mary, ANAMARIA) metoprolol succinate XL (toPROL XL) tab 50 mg 50 mg, Oral, Daily(AM), First dose on Tue11/29/23 at 1215, Until Discontinued, Hold for HR less than 60 or SBP below 100 and notify service if dose is held This med should NOT be Crushed or Chewed. 1931 (Not Given - Provider: Kimmy Brewer RN - Reason: Parameter(s) Not Met - Comment: Pt states he took med this morning) 845 (Given - Provider: Yasmine Mary RN) 07 (Given - Provider: Yasmine Mary RN) oxygen GAS (CANCELED) Inhalation, OXYGEN, First dose on Tue11/29/23 at 1115, Until Discontinued, Device/Managed by: Low Flow Device, Goal SPO2 (%): Other, Lower-limit SPO2 (%): 88, Upper-limit SPO2 (%): 92, Starting Device: Nasal Cannula, Initial Flow Rate (LPM): 6 LPM for NC; 10 LPM for NRB mask, Lowest Support: Nasal Cannula: Flow 0-6 LPM. Titrate up/down by 1 LPM., Higher Support: Non-Rebreather (NRB) Mask: Minimum of 10 LPM. Titrate to maintain bag inflation., Titration Interval: Q2 minutes and as needed., Notify Provider: Other, Notify Provider [other]: If SpO2 less than 88%, notify provider immediately, If patient is on Room Air in the PACU and SpO2 is greater than 88% but less than 92% place patient on Nasal Cannula If patient is on Room Air in the PACU and SpO2 is less than 88% place patient on NRB Mask 1115 (Oxygen On - Provider: Debbie Minor, ANAMARIA) rOPINIRole (Requip) tab 0.5 mg 0.5 mg, Oral, QHS, First dose on Tue11/29/23 at 2200, Until Discontinued 2040 (Given - Provider: Kimmy Brewer RN) 2305 (Given - Provider: Deedee Manzo RN - Comment: was not in stock) tamsulosin (Flomax) cap 0.4 mg 0.4 mg, Oral, Daily(AM), First dose on Tue11/29/23 at 1215, Until Discontinued, Administer 30 min after meal. This med should NOT be Crushed or Chewed or opened! ORAL administration only!! 1931 (Not Given - Provider: Kimmy Brewer RN - Reason: Parameter(s) Not Met - Comment: Pt states he took med this morning) 0846 (Given - Provider: Yasmine Mary, ANAMARIA) 0746 (Given - Provider: Yasmine Mary, ANAMARIA) Continuous Medication Order 11/29/2023 11/30/2023 12/01/2023 isolyte-S pH 7.4 infusion Intravenous, at 25 mL/hr, All Patients EXCEPT Dialysis patients Plasma-LYTE 148, isolyte-S, and isolyte-S pH 7.4 are considered equivalent - including for MAR sohail scanning., CONTINUOUS, Starting on Tue11/29/23 at 0700, Until Tue12/01/23 at 1326, Pre-Op 0711 (New Bag - Provider: Ester Karimi, RN)1330 (New Bag - Provider: Ozzy Edouard RN)1537 (Rate Verify - Provider: Brandon Simmons RN)1736 (Rate Verify - Provider: Brandon Simmons, RN)1940 (Rate Verify - Provider: Brandon Simmons, RN)2133 (Paused - Provider: Kimmy Brewer RN)2159 (Restarted - Provider: Kimmy Brewer RN)2326 (Rate Verify - Provider: Kimmy Brewer RN) 0310 (Rate Verify - Provider: Kimmy Brewer RN)0604 (Rate Verify - Provider: Kimmy Brewer RN)0620 (Rate Verify - Provider: Kimmy Brewer RN)0645 (Rate Verify - Provider: Kimmy Brewer RN)1149 (Rate Verify - Provider: Yasmine Mary RN)1441 (Paused - Provider: Yasmine Mary RN)1447 (Restarted - Provider: Yasmine Mary RN)1709 (Rate Verify - Provider: Yasmine Mary RN)1837 (Rate Verify - Provider: Yasmine Mary RN)2330 (Rate Verify - Provider: Deedee Manzo RN) 0039 (New Bag - Provider: Sam Conley RN)1326 (Due: Stopped) PRN Medication Order 11/29/2023 11/30/2023 12/01/2023 Acetaminophen (Tylenol) tab 975 mg 975 mg, Oral, Q6H PRN Pain, Mild, Fever >38C(100.5F), Headache, Starting on Tue11/29/23 at 1140, Until Nini 12/01/23 at 1326, For 5 days, Avoid in patients with severe hepatic impairment or severe active liver disease. Use for 5 days., Post-op, Post-op 0607 (Given - Provider: Kimmy Brewer RN)1326 (Given - Provider: Yasmine Mary RN) 0745 (Given - Provider: Yasmine Mary RN) albuterol (VENTOLIN HFA/PROVENTIL HFA) inhaler 2 Puff, Inhalation, Q4H PRN Dyspnea, Starting on Tue11/29/23 at 1141, Until Tue12/01/23 at 1326, Shake can for 10 seconds before each puff SEND INHALER WITH PATIENT! WASTE INFO ( IF NOT SENT HOME WITH PATIENT) : Return unused medication to pharmacy in zip lock bag for disposal into black container labeled SP. lidocaine 1 % inj 1 mg (COMPLETED) 1 mg (0.1 mL), Percutaneous, ONCE PRN Other, Difficult IV starts requiring > 20 guage catheter and/ or by patient request, Starting on Tue11/29/23 at 0623, Until Tue11/29/23 at 0711, For 1 dose, Pre-Op 0711 (Given - Provider: Ester Karimi RN) lidocaine-epinephrine 1 %-1:[id number] inj (CANCELED) ONCE PRN INTRA PROCEDURE, Starting on Tue11/29/23 at 0841, Until Tue11/29/23 at 1128, Intra-Op 0841 (Given - Provider: Leonardo Oliver DO) naloxone (Narcan) 0.4 MG/ML inj 0.08 mg 0.08 mg, IV Push, PRN Other, If patient is oversedated or Respiratory Rate less than 8, Starting on Tue11/29/23 at 1140, Until Tue12/01/23 at 1326, Call provider if patient is oversedated or Respiratory Rate is less than 8, Post-op ondansetron (Zofran) inj 4 mg(Linked Group 1) 4 mg, IV Push, Q6H PRN Other, May use for nausea or vomiting if patient unable to take oral ondansetron, Starting on Tue11/29/23 at 1139, Until Tue12/01/23 at 1326, Post-op ondansetron ODT (Zofran) tab 4 mg(Linked Group 1) 4 mg, On Tongue, Q6H PRN Nausea, Vomiting, Starting on Tue11/29/23 at 1139, Until Tue12/01/23 at 1326, Post-op oxyCODONE (Oxy IR) tab 5 mg 5 mg, Oral, Q4H PRN Pain, Severe, Pain, Moderate, Starting on Tue11/29/23 at 1140, Until Tue12/01/23 at 1326, Post-op 1649 (Given - Provider: Brandon Simmons, RN) sodium chloride IR 0.9 % irrigation (CANCELED) ONCE PRN INTRA PROCEDURE, Starting on Tue11/29/23 at 0851, Until Tue11/29/23 at 1128, Intra-Op 0851 (Given - Provider: Leonardo Oliver, DO - Comment: PRN intra op) sterile water for irrigation irrigation (CANCELED) ONCE PRN INTRA PROCEDURE, Starting on Tue11/29/23 at 0914, Until Tue11/29/23 at 1128, Intra-Op 0914 (Given - Provider: Leonardo Oliver, DO - Comment: PRN intra op) surgicel 4x8 hemostat (CANCELED) ONCE PRN INTRA PROCEDURE, Starting on Tue11/29/23 at 1051, Until Tue11/29/23 at 1128, Intra-Op 1051 (Given - Provider: Leonardo Oliver, DO - Comment: PRN intra op) Linked Groups Order Group 1: ondansetron ODT (Zofran) tab 4 mgJump to med 4 mg, On Tongue, Q6H PRN Nausea, Vomiting, Starting on e 11/29/23 at 1139, Until Nini 12/01/23 at 1326, Post-op Or ondansetron (Zofran) inj 4 mgJump to med 4 mg, IV Push, Q6H PRN Other, May use for nausea or vomiting if patient unable to take oral ondansetron, Starting on Tue11/29/23 at 1139, Until Nini 12/01/23 at 1326, Post-op documented in this encounter Advance Directives * Full Code (Latest Code Status on File) Date Activated Date Inactivated Comments 11/29/2023 11:41 AM 12/01/2023 1:26 PM This order reflects the patients wishes and were consensually agreed upon. Question Answer Comments Discussion of Advance Direct rohit occurred with: Not Discussed due to patient's condition Care Teams Show Operations Supervisor Relationship Specialty Start Date End Date Dasha Coley MD [address] [place] [address] PCP - General Family Medicine 09/23/22 documented as of this encounter
--- OUTSIDE RECORDS SUMMARY | 2023-12-25 17:40 | External Medical Summary | Summary of Care ---
Author Name Unknown Organization [facility] Address [address] [place] [address] Phone [phone] Care Team Providers Care Assistant Customer Service Manager Name Role Phone Aggie Mccollum MD Primary Care Provider Reason for Referral * Evaluate & Treat - Unlimited Visits (Within 3 days (urgent)) - Authorized Specialty Diagnoses / Procedures Referred By Ragini hennessy Referred To Contact Oral/Maxillofacial Surgery / Dentistry Diagnoses Tongue cancer (HCC) Molly Stevens MD [address] [place] [address] Referral ID Status Reason Start Date Expiration Date Visits Requested Visits Authorized [id number] Authorized Specialty Services Required 12/14/2023 999 999 Question Answer Referral Priority Within 3 days (urgent) Where should this appointment be scheduled? [facility] Comments Evaluation for radiation therapy treatment * Evaluate & Treat - Unlimited Visits (Within 3 days (urgent)) - Authorized Specialty Diagnoses / Procedures Referred By Ragini hennessy Referred To Contact Radiation Oncology Diagnoses Tongue cancer (HCC) Molly Stevens MD [address] [place] [address] Referral ID Status Reason Start Date Expiration Date Visits Requested Visits Authorized [id number] Authorized Specialty Services Required 12/14/2023 999 999 Question Answer Referral Priority Within 3 days (urgent) Where should this appointment be scheduled? [facility] Encounter Details Date Type Department Care Team (Late st Contact Info) Description 12/12/2023 Documentation [facility] Otolaryngology [address] [place] [address] Molly Stevens MD [address] [place] [address] Tongue cancer (HCC)* Allergies Active Allergy Reactions Criticality Noted Date Comments Bee Stings 06/20/1997 swelling,GI upset Diltiazem Hives 11/18/2020 documented as of this encounter (statuses as of 12/14/2023) Medications Medication Sig Dispensed Refills Start Date [...] as of this encounter (statuses as of 12/14/2023) Active Problems Problem Noted Date Diagnosed Date Tongue cancer 12/01/2023 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 Never true 12/05/19 24 Within the past 12 months, t he [...] 05/16/2024 10:30 AM EDT Office Visit Urology, [facility] [address] [facility] [place] [address] Sigifredo Wright MD [address] [place] [phone] Scheduled Referrals Name Type Priority Associated Diagnoses Orde r Schedule RADIATION/ONCOLOGY REFERRAL OP Referral Within 3 days (urgent) Tongue cancer (HCC) Ordered: 12/14/2023 DENTAL MEDICINE & SURG REFERRAL OP Referral Within 3 days (urgent) Tongue cancer (HCC) Ordered: 12/14/2023 Health Maintenance Due Date Last Done Comments [...] this encounter Medical Devices Implanted Type Area Mechanical Insulator Device Identifier Shelf Expiration Date Model / Serial / Lot Cytal Wndmtx 1lyr 7x10cm - [id number] - [id number] Implanted:Qty: 1 on 11/29/2023 by James Gooden DO at OR [facility] Right: Mouth [employer] [id number] 05/04/2025 [id number] / [id number] / [id number] documented as of this encounter Visit Diagnoses Diagnosis Tongue cancer (HCC)- Primary Malignant neoplasm of tongue, unspecified site documented in this encounter Advance Directives * Full Code (Latest Code Status on File) Date Activated Date Inactivated Comments 11/29/2023 11:41 AM 12/01/2023 1:26 PM This order reflects the patients wishes and were consensually agreed upon. Question Answer Comments Discussion of Advance Direct rohit occurred with: Not Discussed due to patient's condition Care Teams Assistant Customer Service Manager Relationship Specialty Start Date End Date Aggie Mccollum MD [address] [place] [address] PCP - General Family Medicine 09/23/22 documented as of this encounter
--- OUTSIDE RECORDS SUMMARY | 2023-12-25 17:40 | External Medical Summary | Summary of Care ---
Author Name Unknown Organization [facility] Address [address] [place] [address] Phone [phone] Care Team Providers Care Snagger Name Role Phone Aggie Mccollum MD Primary Care Provider Reason for Visit * Reason Onset Date Comments Update 12/14/2023 Encounter Details Date Type Department Care Team (Late st Contact Info) Description 12/14/2023 Telephone Otolaryngology/Head & Neck/Facial Plastic Surgery [address] [place] [address] Leonardo Oliver, [address] [place] [address] Update Allergies Active Allergy Reactions Criticality Noted Date [...] No 12/05/2023 Does the household have a [place] service unit[place] source of income? (Household - for ages [...] encounter Miscellaneous Notes * Telephone Encounter - Leonardo Oliver DO - 12/14/2023 3:07 PM EDT Spoke to Mr. Payan about today's tumor board recommendations for adjuvant radiation I discussed this with Dr. Arriola, Radiation Oncology at [facility]. His office will reach out tomorrow to set up an appointment. documented in this encounter Plan of Treatment Upcoming Encounters Date Type Department Care Team (Late st Contact Info) Description 05/16/2024 10:30 AM EDT Office Visit Urology, [facility] [address] [place] [address] Sigifredo Wright MD [address] [place] [address] Health Maintenance Due Date Last Done Comments [...] this encounter Medical Devices Implanted Type Area Discharge Rn Device Identifier Shelf Expiration Date Model / Serial / Lot Cytal Wndmtx 1lyr 7x10cm - [id number] - [id number] Implanted:Qty: 1 on 11/29/2023 by James Gooden DO at OR [facility] Right: Mouth [employer] [id number] 05/04/2025 [id number] / [id number] / [id number] documented as of this encounter Advance Directives * Full Code (Latest Code Status on File) Date Activated Date Inactivated Comments 11/29/2023 11:41 AM 12/01/2023 1:26 PM This order reflects the patients wishes and were consensually agreed upon. Question Answer Comments Discussion of Advance Direct rohit occurred with: Not Discussed due to patient's condition Care Teams Snagger Relationship Specialty Start Date End Date Aggie Mccollum MD [address] [place], [place] [address] PCP - General Family Medicine 09/23/22 documented as of this encounter
--- OUTSIDE RECORDS SUMMARY | 2023-12-25 17:40 | External Medical Summary | Summary of Care ---
Author Name Unknown Organization [facility] Address [address] [place] [address] Phone [phone] Care Team Providers Care Cushion Spring Assembler Name Role Phone Aggie Mccollum MD Primary Care Provider Encounter Details Date Type Department Care Team (Late st Contact Info) Description 12/16/2023 Telephone Dental Medicine, [place] [address] [place], [place] [id number] Services, [facility] [address] [place] [address] Allergies Active Allergy Reactions Criticality Noted Date Comments Bee Stings 06/20/1997 swelling,GI upset Diltiazem Hives 11/18/2020 documented as of this encounter (statuses as of 12/16/2023) Medications Medication Sig Dispensed Refills Start Date [...] as of this encounter (statuses as of 12/16/2023) Active Problems Problem Noted Date Diagnosed Date Tongue cancer 12/01/2023 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 [address] [facility] [place] [address] Sigifredo Wright MD [address] [place] [address] Health Maintenance Due Date Last Done Comments Hepatitis C Screening 06/11/1973 Cologuard 06/11/2000 Colonoscopy 06/11/2000 Colorectal Cancer Screening 06/11/2000 Fecal Occult Blood Test 06/11/2000 Sigmoidoscopy 06/11/2000 Zoster Vaccines (1 of 2) 06/11/2005 COVID-19 Vaccine (3 - season) 2023 05/22/2020, 04/15/2020 Influenza Vaccine (FLU [...] this encounter Medical Devices Implanted Type Area Chief Ultrasound Technologist Device Identifier Shelf Expiration Date Model / Serial / Lot Cytal Wndmtx 1lyr 7x10cm - [id number] - [id number] Implanted:Qty: 1 on 11/29/2023 by James Gooden DO at OR [facility] Right: Mouth [employer] [id number] 05/04/2025 [id number] / [id number] / [id number] documented as of this encounter Advance Directives * Full Code (Latest Code Status on File) Date Activated Date Inactivated Comments 11/29/2023 11:41 AM 12/01/2023 1:26 PM This order reflects the patients wishes and were consensually agreed upon. Question Answer Comments Discussion of Advance Direct rohit occurred with: Not Discussed due to patient's condition Care Teams Cushion Spring Assembler Relationship Specialty Start Date End Date Aggie Mccollum MD [address] [place] [address] PCP - General Family Medicine 09/23/22 documented as of this encounter
--- OUTSIDE RECORDS SUMMARY | 2023-12-25 17:40 | External Medical Summary | Summary of Care ---
Author Name Unknown Organization [facility] Address [address] [place] [address] Phone [phone] Care Team Providers Care Test Lead Application Testing Name Role Phone Aggie Mccollum MD Primary Care Provider Reason for Visit * Reason Onset Date Comments Update 12/01/2023 Advise / s/p ho aishwarya yesterday Encounter Details Date Type Department Care Team (Late st Contact Info) Description 12/01/2023 Telephone Otolaryngology/Head & Neck/Facial Plastic Surgery [address] [place], [place] [phone] Eunice Suazo, RN [facility] [place] [address] Update (Advise / s/p surgery yesterday ) Allergies Active Allergy Reactions Criticality Noted Date [...] encounter Miscellaneous Notes * Telephone Encounter - Eunice Suazo RN - 12/01/2023 4:13 PM EDT Returned call to patient. Answered all questions regarding wound care and showering. Patient verbalized understanding. Eunice Suazo PhD RN deputy chief sheriff Otolaryngology * Telephone Encounter - Ena Joy OSA - 12/01/2023 12:55 PM EDT calling they just got home and have a bunch of discharge questions about bathing and bandages etc Please call [phone] documented in this encounter Plan of Treatment Upcoming Encounters Date Type Department Care Team (Late st Contact Info) Description 12/12/2023 1:30 PM EDT Office Visit Otolaryngology/Head & Neck/Facial Plastic Surgery [address] [place] [address] Leonardo Oliver DO [address] [place] [address] 05/16/2024 10:30 AM EDT Office Visit Urology, [facility] [address] [place] [address] Sigifredo Wright MD [address] [place] [address] Health Maintenance Due Date Last Done Comments [...] this encounter Medical Devices Implanted Type Area Orientation & Mobility Specialist Device Identifier Shelf Expiration Date Model / Serial / Lot Cytal Wndmtx 1lyr 7x10cm - [id number] - [id number] Implanted:Qty: 1 on 11/29/2023 by James Gooden DO at OR [facility] Right: Mouth [employer] [id number] 05/04/2025 [id number] / [id number] / [id number] documented as of this encounter Advance Directives * Full Code (Latest Code Status on File) Date Activated Date Inactivated Comments 11/29/2023 11:41 AM 12/01/2023 1:26 PM This order reflects the patients wishes and were consensually agreed upon. Question Answer Comments Discussion of Advance Direct rohit occurred with: Not Discussed due to patient's condition Care Teams Test Lead Application Testing Relationship Specialty Start Date End Date Aggie Mccollum MD [address] [place] [address] PCP - General Family Medicine 09/23/22 documented as of this encounter
--- OUTSIDE RECORDS SUMMARY | 2023-12-25 17:40 | External Medical Summary ---
Author Name Unknown Address Unknown Organization : Laboratory Report Ordering Provider Test Date Status KAREN FULTON 11/29/2023 10:14:30 Final Observation Date Value Abnormality Reference (Units ) Status Glucose Point of Care 11/29/2023 10:14:30 116 70-120 (mg/dL) Final Performing Location
--- OUTSIDE RECORDS SUMMARY | 2023-12-25 17:40 | External Medical Summary ---
Author Name Unknown Address Unknown Organization K01:[facility] [address] [facility] [address] Laboratory Report Ordering Provider Test Date Status KAREN FULTON 11/29/2023 07:11:13 Final Observation Date Value Abnormality Reference (Units ) Status ABO 11/29/2023 07:11:13 A Final RH 11/29/2023 07:11:13 Positive Final Performing Location [facility] [address] [facility] [address]
--- OUTSIDE RECORDS SUMMARY | 2023-12-25 17:40 | External Medical Summary | Summary of Care ---
Author Name Unknown Organization [facility] Address [address] [place] [address] Phone [phone] Care Team Providers Care Comparison Shopper Name Role Phone Aggie Mccollum MD Primary Care Provider Reason for Visit * Reason Comments Post-Op He has some pain in his right jaw area and his neck. He also will have some questions about his pathology report. Encounter Details Date Type Department Care Team (Late st Contact Info) Description 12/12/2023 1:30 PM EDT Office Visit Otolaryngology/Head & Neck/Facial Plastic Surgery [address] [place], [place] [phone] Leonardo Oliver DO [address] [place] [address] Squamous cell carcinoma of tongue (HCC)*; S/P partial glossectomy Allergies Active Allergy Reactions Criticality Noted Date [...] 12/05/2023 Does the household have a re lar source of income? (Household - for ages [...] Sign Reading Time Taken Comments Blood Pressure - - Pulse - - Temperature 36.4 C (97.5 F) 12/12/2023 1:29 PM ED T Respiratory Rate - - Oxygen Saturation - - Inhaled Oxygen Concentration - - Weight - - Height - - Body Mass Index - - documented in this encounter Functional Status Functional [...] No 11/29/2023 documented as of this encounter Progress Notes * Maegan Marquez CRNP - 12/12/2023 1:47 PM EDT Otolaryngology - Head & Neck Surgery Interval: Rodney Payan is a 68 year old male seen for follow up of partial right glossectomy with right neck dissection on 11/29/2023. HOSPITAL COURSE (focused): Patient underwent right partial glossectomy with right neck dissection (levels IB - IV) with Dr. Oliver on 11/29/2023. Patient had manageable pain and was given a diet (soft-bite sized solids with thinliquids) that he has tolerated well. Drain was removed AM of 12/01/2023. Patient has been cleared for discharge. Operations & Procedures: partial right glossectomy with right neck dissection. Interval: Doing well overall. Advanced self to regular diet and eating well with no issues. Slightly tender on right tongue area. Able to turn head and neck well and feels he has full ROM. Has insurance papers that need completed today. 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 Past Medical, Surgical, and Social History: Reviewed. Patient Active Problem List Diagnosis Mixed dyslipidemia BPH with obstruction/lower urinary tract symptoms Slow urinary stream Nocturia History of kidney stones Tongue cancer (HCC) Family History: Reviewed. Medications and Allergies: Reviewed. Review of Systems: Negative except as documented in HPI, PMH, and problem list. Physical Examination: Temp 36.4 C (97.5 F) (Infrared ) General: Alert, no acute distress. Well developed. Normal mood and affect. Head: Normocephalic, atraumatic. No scalp lesions or masses. Face: No lesions or masses. Facial movement is symmetric without weakness. Wearing oxygen. Oral cavity: No masses or lesions. Normal tongue mobility. Healing pale skin graft on right lateraltongue. Oropharynx: No masses or lesions. No posterior pharyngeal drainage. Palate elevates evenly. Larynx: Normal voice, no hoarseness. Neck: No cervical lymphadenopathy. Midline trachea, no crepitus. Healing surgical wound. Well approximated. No drainage or erythema. Steri strips removed today. Respiratory: Normal work of breathing on room air. Assessment Rodney Payan is a 68 year old male who presents for post op follow up of right partial glossectomywith right neck dissection (levels IB - IV). Discussed pathologist is going to review his pathology closer Discussed probable radiation given lymphnode involvement Plan - Discuss final pathology review at Tumor board - Return to work note given for December 18 Patient seen and examined with Dr. Oliver. BRIAN Hunter Otolaryngology - Head and Neck Surgery Resident 12/12/2023 1:47 PM I have discussed the patient's management with the resident/fellow physician and agree with the note. Please refer to the documented findings and plan of care. This patient's visit today consisted ofan evaluation. I was present and confirmed the findings of the history and exam. We will need to review his margin status more closely at tumor board as the frozen section margins were reported as more widely clear than the final margins. Leonardo Oliver DO FACS Director, Head and Neck Surgery, Dept of Otolaryngology/Head and Neck Surgery Head and Neck Surgical Oncology Microvascular Reconstructive Surgery Transoral Robotic Surgery documented in this encounter Plan of Treatment Upcoming Encounters Date Type Department Care Team (Late st Contact Info) Description 05/16/2024 10:30 AM EDT Office Visit Urology, [facility] [address] [place] [address] Sigifredo Wright MD [address] [place] [address] Health Maintenance Due Date Last Done Comments [...] this encounter Medical Devices Implanted Type Area Global Cmo Device Identifier Shelf Expiration Date Model / Serial / Lot Cytal Wndmtx 1lyr 7x10cm - [id number] - [id number] Implanted:Qty: 1 on 11/29/2023 by James Gooden DO [place] [facility] [place] Right: Mouth [employer] [id number] 05/04/2025 [id number] / [id number] / [id number] documented as of this encounter Visit Diagnoses Diagnosis Squamous cell carcinoma of tongue (HCC)- Primary Malignant neoplasm of tongue, unspecified site S/P partial glossectomy Other postprocedural status documented in this encounter Advance Directives * Full Code (Latest Code Status on File) Date Activated Date Inactivated Comments 11/29/2023 11:41 AM 12/01/2023 1:26 PM This order reflects the patients wishes and were consensually agreed upon. Question Answer Comments Discussion of Advance Direct rohit occurred with: Not Discussed due to patient's condition Care Teams Comparison Shopper Relationship Specialty Start Date End Date Aggie Mccollum MD [address] [place] [address] PCP - General Family Medicine 09/23/22 documented as of this encounter
--- OUTSIDE RECORDS SUMMARY | 2023-12-25 17:40 | External Medical Summary | Summary of Care ---
Author Name Unknown Organization [facility] Address [address] [place] [address] Phone [phone] Care Team Providers Care Taco Maker Name Role Phone Aggie Mccollum MD Primary Care Provider Reason for Visit * Reason Onset Date Comments Appointment 12/01/2023 Encounter Details Date Type Department Care Team (Late st Contact Info) Description 12/01/2023 Telephone Otolaryngology/Head & Neck/Facial Plastic Surgery [address] [place], [place] [address] Services, Scheduling [address] [place] [address] Appointment Allergies Active Allergy Reactions Criticality Noted Date [...] Encounter - Eunice Suazo RN - 12/01/2023 4:10 PM EDT Return call to patient. Patient scheduled 12/12/23 at 1:[address] Oliver. Eunice Suazo PhD RN roller coaster operator Otolaryngology * Telephone Encounter - Ena Grissom OSA - 12/01/2023 12:35 PM EDT Pt called he just had surgery with Dr Oliver a few days ago and needs a follow up appt. No appt are avail. Please call pt to help schedule Thank you documented in this encounter Plan of Treatment Upcoming Encounters Date Type Department Care Team (Late st Contact Info) Description 12/12/2023 1:30 PM EDT Office Visit Ot[facility] Ne[facility] [address] [facility] [address] Leonardo [facility] [address] [facility] [address] 05/16/2024 10:30 AM EDT Office Visit Urology, [address] [place] [address] Sigifredo Wright MD [address] [place] [phone] Health Maintenance Due Date Last Done Comments [...] this encounter Medical Devices Implanted Type Area Pricing Intern Device Identifier Shelf Expiration Date Model / Serial / Lot Cytal Wndmtx 1lyr 7x10cm - [id number] - [id number] Implanted:Qty: 1 on 11/29/2023 by James Gooden DO at OR [facility] Right: Mouth [employer] [id number] 05/04/2025 [id number] / [id number] / [id number] documented as of this encounter Advance Directives * Full Code (Latest Code Status on File) Date Activated Date Inactivated Comments 11/29/2023 11:41 AM 12/01/2023 1:26 PM This order reflects the patients wishes and were consensually agreed upon. Question Answer Comments Discussion of Advance Direct rohit occurred with: Not Discussed due to patient's condition Care Teams Taco Maker Relationship Specialty Start Date End Date Aggie Mccollum MD [address] [place] [address] PCP - General Family Medicine 09/23/22 documented as of this encounter
--- OUTSIDE RECORDS SUMMARY | 2023-12-25 17:40 | External Medical Summary | Summary of Care ---
Author Name Unknown Organization [facility] Address [address] [place] [address] Phone [phone] Care Team Providers Care Shotblast Operator Name Role Phone Aggie Mccollum MD Primary Care Provider Reason for Visit * Reason Comments dysphagia Encounter Details Date Type Department Care Team (Latest Contact Info) Description 12/12/2023 2:00 PM EDT [facility], [place] [address], [place] [id number] Malinda Simmons, [facility]-TIRE AND LUBE TECHNICIAN [address] [place] [address] Oropharyngeal dysphagia*; Squamous cell carcinoma of tongue (HCC) Allergies Active Allergy Reactions Criticality Noted Date Comments Bee Stings 06/20/1997 swelling,GI upset Diltiazem Hives 11/18/2020 documented as of this encounter (statuses as of 12/12/2023) Medications Medication Sig Dispensed Refills Start Date [...] as of this encounter (statuses as of 12/12/2023) Active Problems Problem Noted Date Diagnosed Date Tongue cancer 12/01/2023 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 Flexible Endoscopic Evaluation of Swallowing (FEES) [facility] Referring MD: Dr. Oliver FEES Endoscopist: Malinda Simmons CCC-TIRE AND LUBE TECHNICIAN Reason for Referral: Instrumental swallow assessment to assess oropharyngeal swallow function, oralfeeding safety and potential for diet advancement. The severity of the patients medical condition (described below) and/or dysphagia warranted a FEES study. Medical History: Per [facility] chart review, pt is a "68 year old male seen for follow up [...] right neck dissection. Interval: Doing well overall. Eating well. Slightly tender on right tongue area. Has insurance papers that need completed today. " Cognitive/communicative status: Pt alert; followed directions, communicated wants and needs, and conversed appropriately PO status/Dysphagia history: Pt has advanced to PO regular solids with thin liquids. He is eating tomato toasted sandwiches, chips, etc... Notes continued healing, but overall doing well. He may needadjuvant radiation (to be determined at tumor board discussion). Decision to complete baseline swallow study in the case he needs radiation, as he [place]. Pneumonia History: none recent Oral mechanism exam: Facial Symmetry Within functional limits Labial Function Within functional limits Lingual Function Impaired strength and ROM Velar Function DNT Dentition: Upper Dentures and Lower Dentures Protective mechanisms: Volitional Swallow Within Functional Limits Volitional Throat Clearing Did not test Volitional Cough Did not test Vocal Quality Within Functional Limits Tracheostomy Tube: Not Present Ventilator Status: Not Applicable 3L O2 via NC Procedure: Patient was sitting upright in chair at a 90 degree angle The nose was first topically decongested and anesthetized with 0.4 mL oxymetazoline 0.025% spray and Lidocaine 2% spray. The Ac Storz HD scope was inserted into the R nare. Pt given PO trials of thin liquids, applesauce, diced peaches, and derik cracker. Patient tolerated the procedure well with the findings outlined below. Findings: View of larynx before PO trials showed adequate VF mobility during phonation. No pooling of secretions. Swallowing efficiency: Within functional limits (WFL). Oropharynx grossly free from residue following all trials. Mucus from epiglottis to posterior pharyngeal wall following peaches. Airway protection: Within functional limits (WFL). No visualized laryngeal penetration or aspiration. Media Information: Post thin Post thin Post applesauce Post peaches Post derik cracker Impression: Normal oropharyngeal swallow DIGEST-FEES: Safety grade: S0 Efficiency grade: E0 Score (Interaction of Assigned Safety and Efficiency Grades): 0 (normal) Goals: 1) If plan is for adjuvant radiation, pt will consume a regular diet with thin liquids without PNA symptoms and/or great weight loss. 2) If plan is for adjuvant radiation, pt will participate in a home exercise swallowing program. Anticipated frequency/return follow up: TBD following tumor board RECOMMENDATIONS: PO status regular solids with thin liquids Swallow exercise program if radiation needed TIRE AND LUBE TECHNICIAN follow up TBD following tumor board documented in this encounter Plan of Treatment Upcoming Encounters Date Type Department Care Team (Late st Contact Info) Description 05/16/2024 10:30 AM EDT Office Visit Urology, [facility] [address] [facility] [place] [address] Sigifredo Wright MD [address] [facility] [place] [address] Scheduled Orders Name Type Priority Associated Diagnoses Orde r Schedule FLEX ENDO EVAL SWAL FUNC REC Procedures Routine Oropharyngeal dysphagia Squamous cell carcinoma of tongue (HCC) Ordered: 12/12/2023 Health Maintenance Due Date Last Done Comments [...] this encounter Medical Devices Implanted Type Area Retoucher Photoengraving Device Identifier Shelf Expiration Date Model / Serial / Lot Cytal Wndmtx 1lyr 7x10cm - [id number] - [id number] Implanted:Qty: 1 on 11/29/2023 by James Gooden DO at OR [facility] Right: Mouth [employer] [id number] 05/04/2025 [id number] / [id number] / [id number] documented as of this encounter Visit Diagnoses Diagnosis Oropharyngeal dysphagia- Primary Dysphagia, oropharyngeal phase Squamous cell carcinoma of tongue (HCC) Malignant neoplasm of tongue, unspecified site documented in this encounter Advance Directives * Full Code (Latest Code Status on File) Date Activated Date Inactivated Comments 11/29/2023 11:41 AM 12/01/2023 1:26 PM This order reflects the patients wishes and were consensually agreed upon. Question Answer Comments Discussion of Advance Direct rohit occurred with: Not Discussed due to patient's condition Care Teams Shotblast Operator Relationship Specialty Start Date End Date Aggie Mccollum MD [address] [place] [address] PCP - General Family Medicine 09/23/22 documented as of this encounter
--- OUTSIDE RECORDS SUMMARY | 2023-12-25 17:40 | External Medical Summary ---
Author Name Unknown Address Unknown Organization [id number]:[facility] [place] [facility] - [address] [place] [address] Laboratory Report Ordering Provider Test Date Status KAREN FULTON 11/29/2023 07:11:13 Final Observation Date Value Abnormality Reference (Units ) Status ABO 11/29/2023 07:11:13 A Final RH 11/29/2023 07:11:13 Positive Final RED BLOOD CELL ANTIBODY SCREEN 11/29/2023 07:11:13 Negative Final SPECIMEN EXPIRATION DATE 11/29/2023 07:11:13 12/02/2023 23:59 Final Performing Location [facility] [place] [facility] - [address] [place] [id number]
[2023-12-25 18:13] LABS: Basophils # (auto) 0.03 K/uL (0.00-0.20); Basophils % (auto) 0.2 %; Eosinophils # (auto) 0.01 K/uL (0.00-0.50); Eosinophils % (auto) 0.1 %; Hematocrit (blood only) 40.6 % (42.0-52.0); Hemoglobin 13.7 g/dl (14.0-18.0); Immature Granulocytes # (auto) 0.04 K/uL (0.01-0.20); Immature Granulocytes % (auto) 0.3 %; Lymphocytes # (auto) 0.75 K/uL (1.20-3.40); Lymphocytes % (auto) 5.9 %; Mean Corpuscular Hemoglobin 28.9 pg (25.0-34.0); Mean Corpuscular Hgb Conc 33.7 g/dL (32.0-36.0); Mean Corpuscular Volume 85.7 fL (80.0-100.0); Mean Platelet Volume 10.1 fL (9.4-12.4); Monocytes # (auto) 0.61 K/uL (0.11-0.59); Monocytes % (auto) 4.8 %; Neutrophils # (auto) 11.21 K/uL (1.40-6.50); Neutrophils % (auto) 88.7 %; Platelet Count 177 K/uL (130-400); RDW Coefficient of Variation 13.1 % (11.5-14.5); RDW Standard Deviation 40.7 fL (36.4-46.3); Red Blood Count 4.74 M/uL (4.70-6.10); White Blood Count 12.65 K/ul (4.8-10.8)
[2023-12-25 18:41] LABS: Albumin Globulin Ratio 1.4 (0.9-2); Albumin Level 4.1 gm/dl (3.4-5.0); BUN Creatinine Ratio 16.5 (10-20); Bilirubin,Total 1.1 mg/dl (0.2-1.0); Calcium 9.2 mg/dl (8.6-10.3); Creatinine Clr Calc Pharmacy 83.3 ml/min; Globulin 2.9 gm/dl (2.5-4.0); Potassium 4.1 mmol/L (3.5-5.1)
[2023-12-25 18:42] LABS: Partial Thromboplastin Time 26 Seconds (21-31)
--- NOTE | 2023-12-25 18:45 | XRay Report ---
XR chest 1V not portable CLINICAL HISTORY: Chest pain, nonspecific TECHNIQUE: Single frontal radiograph of the chest was obtained. Comparison: Comparison is made to chest radiograph 03/05/2023 FINDINGS: No lines and tubes are seen. The cardiomediastinal silhouette is stable. The lungs are clear. Small b ilateral pleural effusions are seen. IMPRESSION: No acute chest disease. ACT 112: Negative or not required by law. Electronically signed by: Merlin Woody M.D. 12/25/2023 6:44 PM
[2023-12-25 18:48] LABS: Troponin I High Sensitivity 5.6 pg/ml (0-20)
[2023-12-25] MEDS: SODIUM CHLORIDE 0.9% 1,000 ML IV ONE (18:52)
--- NOTE | 2023-12-25 18:54 | Emergency Department Note ---
Impression & Plan Acute dyspnea, Pneumonia, Sepsis, Leukocytosis ED Provider Note HISTORY OF PRESENT ILLNESS: Patient is a 68-year-old male presenting with shortness of breath. Patient reports he wears 2 L nasal cannula at baseline for history of COPD. He states that starting late yesterday and throughout the day today he has been having increasing shortness of breath. He states that with minimal exertion he feels completely winded. Denies any chest pain. He reports that he did increase his oxygen throughout the day today feeling like he could not catch his breath. He did try nebulizer treatment at home with little relief in his shortness of breath. He has a history of a DVT but is no longer on any anticoagulation. Denies any history of PEs. He denies any measured fevers at home, but reports subjective chills. He denies any abdominal pain, nausea or vomiting. Denies any known recent sick contact exposures. Denies any recent travel. ROS: as above PHYSICAL EXAM: Constitutional: Patient appears in no acute distress. HENT: Head: Normocephalic and atraumatic. Eyes: EOMI, PERRL Mouth/Throat: Mucous membranes moist. Neck: Trachea midline. Neck supple. Cardiovascular: Tachycardic with regular rhythm. No murmurs, rubs or gallops. Intact distal pulses. Pulmonary/Chest: Patient is tachypneic. Conversationally dyspneic. Coarse breath sounds bilaterally. Abdominal: Abdomen soft, no tenderness, rebound or guarding. Musculoskeletal: No edema, tenderness or deformity noted. Skin: Warm and dry. No rash, erythema, pallor or cyanosis Psychiatric: Appropriate mood and affect for situation. Neurological: Alert and keenly responsive. CN II-XII grossly intact, moving all extremities equally and fully. MDM: - Vitals signs showed hypotension, tachycardia and tachypnea. - History obtained via patient. History as above. - Chronic conditions affecting care: COPD (on 2L NC); HTN; HLD; BPH; DALIA; tongue cancer - Differential diagnoses include, but are not limited to: Congestive heart failure; acute coronary syndrome; COPD/asthma exacerbation; pulmonary edema; pulmonary embolism; pneumonia; pneumothorax; viral syndrome - Order placed for continuous cardiac monitoring. At this time, monitor showed rate of 112 bpm with normal sinus rhythm, per my interpretation. - External medical records reviewed. Radiation oncology note dated 12/22/2023 was reviewed. Patient has a history of tongue cancer. - EKG interpreted by myself showed normal sinus rhythm. Rate tachycardic at 123 bpm. QT 292. No acute ischemic changes - Laboratory workup interpreted by myself showed leukocytosis (WBC 12.65) with neutrophil predominance; normal PT/INR; normal procalcitonin; normal lactate; slight hyponatremia (Na 135); normal troponin; normal BNP - Viral respiratory panel negative - CXR showed concern for right lower lobe pneumonia, per my interpretation. - VBG showed slight hypercarbia. - CT PE negative for PE but noted to have airspace opacities in the superior portion of the right lower lobe and in the lingula. - Blood cultures obtained. - Patient given duoneb treatment in ER. - Given IV Rocephin and doxycycline for pneumonia coverage initially. However, patient has recently been admitted to the hospital, so antibiotics were broadened to IV vancomycin. - Patient meets sepsis criteria. Given 1 L normal saline in the emergency department. - Discussion was had with family independence case manager about patient's case and need for admission - Hospitalist, Dr. Sabillon, consulted for admission [facility] ASSESSMENT AND PLAN: Diagnosis: Sepsis; pneumonia; leukocytosis; acute dyspnea Plan: admit Past Med/Surg History Problem List (Updated 12/25/23 @ 21:30 by Carlos Sabillon MD) Acute on chronic respiratory failure with hypoxia Cancer of ventral surface of tongue Cancer determined by biopsy of tongue 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 "will bump up if needed" 2nd degree AV block (Chronic) Cardiomyopathy, nonischemic (Chronic) Chronic deep vein thrombosis of lower extremity (Chronic) Enlarged prostate with lower urinary tract symptoms (LUTS) (Chronic) Hearing difficulty (Chronic) Idiopathic progressive polyneuropathy (Chronic) Lumbar back pain (Chronic) Peyronie's disease (Chronic) Sleep related hypoxia (Chronic) Solitary pulmonary nodule (Chronic) Medical History (Updated 12/25/23 @ 21:30 by Carlos Sabillon MD) Dependence on continuous supplemental oxygen wears 1-3l nc cont as needed. "will bump up if needed" Lumbar back pain Polyneuropathy Periodic limb movement BPH (benign prostatic hyperplasia) History of foot ulcer resolved Elevated cholesterol Hx of Mobitz type I block pt reports tachycardia>reason for metoprolol Hyperlipidemia History of COVID-19 02/2023- hospitalized at [place] Vitamin D deficiency hx 2nd degree AV block follows w/ Dr Holloway DALIA (obstructive sleep apnea) uses 2 lpm HS Pulmonary nodule Neuropathy Arthritis History of anemia History of lung cancer RUL, s/p lobectomy - [facility], 2011>chemo and radiation H/O deep venous thrombosis 2011>when going through chemo (was on coumadin for years) Chronic respiratory failure with hypoxia follows w/ Dr Seo H/O testicular mass benign Restless leg syndrome Stage 4 very severe COPD by GOLD classification Surgical History (Updated 12/22/23 @ 08:55 by Joy Epstein RN) History of surgery S/P right partial glossectomy;Right neck dissection;Placement of acellular dermal matrix graft on 11/29/23 Dr. Oliver H/O excision of mass right lateral tongue, nasopharyngeal scope, frozen section; 08/18/23 Dr Nawaf Durham History of surgery on lower extremity left (hardware intact) History of lumbar surgery laminectomy History of cystoscopy History of esophagogastroduodenoscopy (EGD) History of colonoscopy History of tooth extraction History of tonsillectomy History of lumbar laminectomy History of lung surgery RUE lobectomy r/t lung cancer Hx of fusion of cervical spine good rom Hx of cholecystectomy (1990) Family History (Updated 10/12/23 @ 09:24 by Ellie Ochoa, ANAMARIA) Father Stroke syndrome Gallbladder disease Mother Gallbladder disease Lung disease Hypertension Cardiac disorder Congestive heart failure Brother Myocardial infarction Sister No problems noted. Denies family history of Ovarian cancer Prostate cancer Breast cancer Colorectal cancer Social History (Updated 10/12/23 @ 09:26 by Ellie Ochoa, ANAMARIA) Smoking Status: Former smoker Tobacco Type: Cigarettes Age Started Using Tobacco: 18; Age Quit Using Tobacco: 56; packs per day: 1.5; Cigarettes Per Day: 20-30 per day; Second Hand Exposure: Yes (hx); Do You Dip or Chew Tobacco: No; Hx Alcohol Use: Yes Alcohol type: beer Alcohol Intake Frequency: Monthly or Less Alcohol Intake Frequency Comment: social; 3 cans per year; Hx Substance Use: No Preferred Language: Libyan Communication Ability: Effective Visual Impairment: Limited Hearing Ability: Use of Hearing Aid Payloader Operator Required: No Beliefs That Will Affect Care: None marital status: Current Living Situation: Spouse Current Living Situation Comment: Lives with current occupational status: employed and retired 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, 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 How many Children do You have: 5 Feels Safe at Home: Yes Childhood Exposure to Second-Hand Smoke: Yes Diet: regular Diet Comment: regular Dental Care, Regularly: No Physical Activity Frequency: Does not Exercise Seatbelt Use: never Sunscreen Use: No Assistive Devices: Denture - Upper, Denture - Lower, Glasses, Hearing Aid - Bilateral, Nebulizer, Oxygen - at Night and Oxygen - Continuous Allergies Allergies Allergy/AdvReac Type Severity Reaction Status Date / Time diltiazem Allergy Intermediate REDNESS Verified 11/17/23 11:09 "MADE ME LOOK LIKE A STRAWBERRY" bee venom protein (honey bee) Allergy Unknown LOCAL Verified 11/17/23 11:09 SWELLING Home Meds Home Medications Medication Instructions Recorded Confirmed multivitamin 1 tab PO QAM 02/11/18 12/25/23 aspirin 81 mg tablet,delayed 81 mg PO QPM 06/09/21 12/25/23 release (Adult Low Dose Aspirin) cholecalciferol (vitamin D3) 50 50 mcg PO QAM 06/09/21 12/25/23 mcg (2,000 unit) capsule triamcinolone acetonide 0.025 % 1 applic topical PRN 02/08/22 12/25/23 topical ointment guaifenesin 1,200 mg tablet, 1,200 mg PO BID 09/15/22 12/25/23 extended release 12 hr (Mucinex) tamsulosin 0.4 mg capsule 0.4 mg PO QAM 09/15/22 12/25/23 Oxygen Home 09/17/22 12/25/23 Previous Rx's Medication Instructions Recorded ipratropium 0.5 mg-albuterol 3 mg 3 ml inhalation QID PRN shortness 01/13/22 (2.5 mg base)/3 mL nebulization of breath or wheezing #1,080 vials soln meclizine 25 mg tablet See Rx Instructions PO TID PRN 01/12/23 dizziness or vertigo #30 tabs ropinirole 0.5 mg tablet 0.5 mg PO PM #90 tabs 02/15/23 benzonatate 200 mg capsule 200 mg PO TID PRN cough #20 caps 03/01/23 nebulizers #1 ea 04/15/23 betamethasone dipropionate 0.05 % 1 applic topical BID PRN skin 04/21/23 topical cream irritation #15 grams azithromycin 250 mg tablet 250 mg PO .COMPLEX #36 tabs 06/08/23 Portable Oxygen #1 ea 06/21/23 albuterol sulfate 90 mcg/actuation 2 puff inhalation Q4H PRN 06/21/23 aerosol inhaler shortness of breath or wheezing #3 Inhalers fluticasone fur. 200 mcg-umeclid 1 inh inhalation QAM #3 Inhalers 06/21/23 62.5 mcg-vilant 25 mcg inhalat.powder (Trelegy Ellipta) hydrocodone 5 mg-acetaminophen 325 1 tab PO Q4H PRN pain #14 tabs 08/18/23 mg tablet atorvastatin 10 mg tablet 10 mg PO HS #90 tabs 09/02/23 levocetirizine 5 mg tablet 5 mg PO DAILY PRN Allergy Symptoms 09/02/23 #90 tabs metoprolol succinate 50 mg 50 mg PO QAM #90 tabs 09/02/23 tablet,extended release 24 hr (Toprol XL) Results & Data (ED) Vital Signs Vital Signs - 24 hr 12/25/23 17:41 12/25/23 18:04 12/25/23 18:07 Temperature 36.9 C Temperature Source Temporal Artery Scan Pulse Rate 117 H 121 H Pulse Rate from SpO2 Sensor Respiratory Rate 12 Respiratory Effort / Characteristics Non-Labored Respiratory Depth Normal Blood Pressure 91/53 L 97/72 L Blood Pressure Mean 65 83 Pulse Oximetry 92 Oxygen Delivery Method Nasal Cannula Oxygen Flow Rate 2 Sepsis Recent Fever Within 48 Hours No Sepsis New/Unexplained Change in Mental Status N/A Sepsis Action Taken by Nursing No Action Required 12/25/23 18:11 12/25/23 18:11 12/25/23 18:21 Temperature Temperature Source Pulse Rate 117 H Pulse Rate from SpO2 Sensor 115 H Respiratory Rate 33 H Respiratory Effort / Characteristics Respiratory Depth Blood Pressure Blood Pressure Mean Pulse Oximetry 94 94 94 Oxygen Delivery Method Nasal Cannula Nasal Cannula Oxygen Flow Rate 2 2 Sepsis Recent Fever Within 48 Hours Sepsis New/Unexplained Change in Mental Status Sepsis Action Taken by Nursing 12/25/23 18:27 12/25/23 18:30 12/25/23 18:30 Temperature Temperature Source Pulse Rate 113 H Pulse Rate from SpO2 Sensor 113 H Respiratory Rate 33 H Respiratory Effort / Characteristics Respiratory Depth Blood Pressure 88/61 L 88/61 L Blood Pressure Mean 76 76 Pulse Oximetry 94 Oxygen Delivery Method Oxygen Flow Rate Sepsis Recent Fever Within 48 Hours Sepsis New/Unexplained Change in Mental Status Sepsis Action Taken by Nursing 12/25/23 18:30 12/25/23 18:33 12/25/23 19:00 Temperature Temperature Source Pulse Rate 115 H 113 H Pulse Rate from SpO2 Sensor 114 H 114 H Respiratory Rate 32 H 28 H Respiratory Effort / Characteristics Respiratory Depth Blood Pressure 88/61 L 90/62 L Blood Pressure Mean 76 71 Pulse Oximetry 95 99 Oxygen Delivery Method Nasal Cannula Nasal Cannula Oxygen Flow Rate 2 2 Sepsis Recent Fever Within 48 Hours Sepsis New/Unexplained Change in Mental Status Sepsis Action Taken by Nursing 12/25/23 19:27 12/25/23 19:51 12/25/23 20:03 Temperature Temperature Source Pulse Rate 114 H 113 H 112 H Pulse Rate from SpO2 Sensor 115 H 114 H 111 H Respiratory Rate 26 H 30 H 30 H Respiratory Effort / Characteristics Respiratory Depth Blood Pressure 100/56 L 83/45 L 88/61 L Blood Pressure Mean 70 57 70 Pulse Oximetry 97 97 96 Oxygen Delivery Method Nasal Cannula Nasal Cannula Nasal Cannula Oxygen Flow Rate 2 2 2 Sepsis Recent Fever Within 48 Hours Sepsis New/Unexplained Change in Mental Status Sepsis Action Taken by Nursing 12/25/23 20:21 12/25/23 20:39 12/25/23 21:33 Temperature Temperature Source Pulse Rate 112 H 111 H Pulse Rate from SpO2 Sensor 111 H 111 H Respiratory Rate 30 H 30 H Respiratory Effort / Characteristics Respiratory Depth Blood Pressure 100/55 L 113/64 92/46 L Blood Pressure Mean 70 80 64 Pulse Oximetry 96 96 Oxygen Delivery Method Nasal Cannula Nasal Cannula Oxygen Flow Rate 2 2 Sepsis Recent Fever Within 48 Hours Sepsis New/Unexplained Change in Mental Status Sepsis Action Taken by Nursing 12/25/23 21:36 Temperature Temperature Source Pulse Rate 106 H Pulse Rate from SpO2 Sensor 106 H Respiratory Rate 38 H Respiratory Effort / Characteristics Respiratory Depth Blood Pressure 93/58 L Blood Pressure Mean 69 Pulse Oximetry 96 Oxygen Delivery Method Nasal Cannula Oxygen Flow Rate 2 Sepsis Recent Fever Within 48 Hours Sepsis New/Unexplained Change in Mental Status Sepsis Action Taken by Nursing Laboratory Data 12/25/23 17:58 12/25/23 17:58 Lab Results 12/25/23 12/25/23 12/25/23 Range/Units 17:58 18:08 18:44 WBC 12.65 H (4.8-10.8) K/ul RBC 4.74 (4.70-6.10) M/uL Hgb 13.7 L (14.0-18.0) g/dl Hct 40.6 L (42.0-52.0) % MCV 85.7 (80.0-100.0) fL MCH 28.9 (25.0-34.0) pg MCHC 33.7 (32.0-36.0) g/dL RDW Std Deviation 40.7 (36.4-46.3) fL RDW Coeff of Dinesh 13.1 (11.5-14.5) % Plt Count 177 (130-400) K/uL MPV 10.1 (9.4-12.4) fL Immature Gran % (Auto) 0.3 % Neut % (Auto) 88.7 % Lymph % (Auto) 5.9 % Tillman % (Auto) 4.8 % Eos % (Auto) 0.1 % Baso % (Auto) 0.2 % Neut # (Auto) 11.21 H (1.40-6.50) K/uL Lymph # (Auto) 0.75 L (1.20-3.40) K/uL Tillman # (Auto) 0.61 H (0.11-0.59) K/uL Eos # (Auto) 0.01 (0.00-0.50) K/uL Baso # (Auto) 0.03 (0.00-0.20) K/uL Immature Gran # (Auto) 0.04 (0.01-0.20) K/uL PT 11.0 (9.0-12.0) Seconds INR 1.0 (0.9-1.1) APTT 26 (21-31) Seconds PTT Ratio 1.0 VBG pH (7.36-7.41) VBG pCO2 (38-50) mmHg VBG pO2 mmHg VBG HCO3 mmol/L VBG O2 Saturation % VBG Base Excess mEq/L Sodium 135 L (136-145) mmol/L Potassium 4.1 (3.5-5.1) mmol/L Chloride 100 (98-107) mmol/L Carbon Dioxide 28 (21-32) mmol/L Anion Gap 7 (3-11) BUN 18 (6-23) mg/dl Creatinine 1.09 (0.6-1.4) mg/dl Est Cr Clr Drug Dosing 83.3 ml/min eGFR 73.93 BUN/Creatinine Ratio 16.5 (10-20) Glucose 127 H (70-99(Fasting)) mg/dl Lactate 1.7 (0.4-2.0) mmol/L Calcium 9.2 (8.6-10.3) mg/dl Total Bilirubin 1.1 H (0.2-1.0) mg/dl AST 19 (13-39) U/L ALT 15 (7-52) U/L Alkaline Phosphatase 81 (34-104) U/L Troponin I High Sens 5.6 (0-20) pg/ml B-Natriuretic Peptide 40 (0-100) pg/ml Total Protein 7.0 (6.0-8.3) gm/dl Albumin 4.1 (3.4-5.0) gm/dl Globulin 2.9 (2.5-4.0) gm/dl Albumin/Globulin Ratio 1.4 (0.9-2) Procalcitonin 0.13 (0-0.5) ng/ml Adenovirus (PCR) Not Detected (NotDetected) B. pertussis DNA (PCR) Not Detected (NotDetected) B.parapertussis DNA PCR Not Detected (NotDetected) C. pneumoniae DNA (PCR) Not Detected (NotDetected) Coronavirus OC43 (PCR) Not Detected (NotDetected) Coronavirus HKU1 (PCR) Not Detected (NotDetected) Coronavirus 229E (PCR) Not Detected (NotDetected) SARS-CoV-2 (PCR) Not Detected (NotDetected) Coronavirus NL63 (PCR) Not Detected (NotDetected) Human Metapneumovir PCR Not Detected (NotDetected) Influenza Type A (PCR) Not Detected (NotDetected) Influenza Type B (PCR) Not Detected (NotDetected) M. pneumoniae (PCR) Not Detected (NotDetected) Parainfluenza 1 (PCR) Not Detected (NotDetected) Parainfluenza 2 (PCR) Not Detected (NotDetected) Parainfluenza 3 (PCR) Not Detected (NotDetected) Parainfluenza 4 (PCR) Not Detected (NotDetected) RSV (PCR) Not Detected (NotDetected) Entero/Rhino (PCR) Not Detected (NotDetected) 12/25/23 Range/Units 19:25 WBC (4.8-10.8) K/ul RBC (4.70-6.10) M/uL Hgb (14.0-18.0) g/dl Hct (42.0-52.0) % MCV (80.0-100.0) fL MCH (25.0-34.0) pg MCHC (32.0-36.0) g/dL RDW Std Deviation (36.4-46.3) fL RDW Coeff of Dinesh (11.5-14.5) % Plt Count (130-400) K/uL MPV (9.4-12.4) fL Immature Gran % (Auto) % Neut % (Auto) % Lymph % (Auto) % Tillman % (Auto) % Eos % (Auto) % Baso % (Auto) % Neut # (Auto) (1.40-6.50) K/uL Lymph # (Auto) (1.20-3.40) K/uL Tillman # (Auto) (0.11-0.59) K/uL Eos # (Auto) (0.00-0.50) K/uL Baso # (Auto) (0.00-0.20) K/uL Immature Gran # (Auto) (0.01-0.20) K/uL PT (9.0-12.0) Seconds INR (0.9-1.1) APTT (21-31) Seconds PTT Ratio VBG pH 7.36 (7.36-7.41) VBG pCO2 51 H (38-50) mmHg VBG pO2 30 mmHg VBG HCO3 29 mmol/L VBG O2 Saturation < 60.0 % VBG Base Excess 2.4 mEq/L Sodium (136-145) mmol/L Potassium (3.5-5.1) mmol/L Chloride (98-107) mmol/L Carbon Dioxide (21-32) mmol/L Anion Gap (3-11) BUN (6-23) mg/dl Creatinine (0.6-1.4) mg/dl Est Cr Clr Drug Dosing ml/min eGFR BUN/Creatinine Ratio (10-20) Glucose (70-99(Fasting)) mg/dl Lactate (0.4-2.0) mmol/L Calcium (8.6-10.3) mg/dl Total Bilirubin (0.2-1.0) mg/dl AST (13-39) U/L ALT (7-52) U/L Alkaline Phosphatase (34-104) U/L Troponin I High Sens (0-20) pg/ml B-Natriuretic Peptide (0-100) pg/ml Total Protein (6.0-8.3) gm/dl Albumin (3.4-5.0) gm/dl Globulin (2.5-4.0) gm/dl Albumin/Globulin Ratio (0.9-2) Procalcitonin (0-0.5) ng/ml Adenovirus (PCR) (NotDetected) B. pertussis DNA (PCR) (NotDetected) B.parapertussis DNA PCR (NotDetected) C. pneumoniae DNA (PCR) (NotDetected) Coronavirus OC43 (PCR) (NotDetected) Coronavirus HKU1 (PCR) (NotDetected) Coronavirus 229E (PCR) (NotDetected) SARS-CoV-2 (PCR) (NotDetected) Coronavirus NL63 (PCR) (NotDetected) Human Metapneumovir PCR (NotDetected) Influenza Type A (PCR) (NotDetected) Influenza Type B (PCR) (NotDetected) M. pneumoniae (PCR) (NotDetected) Parainfluenza 1 (PCR) (NotDetected) Parainfluenza 2 (PCR) (NotDetected) Parainfluenza 3 (PCR) (NotDetected) Parainfluenza 4 (PCR) (NotDetected) RSV (PCR) (NotDetected) Entero/Rhino (PCR) (NotDetected) Administered Medications Doxycycline Hyclate 100 mg/ (Dextrose) 100 mls @ 50 mls/hr IV NOW STA Stop: 12/25/23 21:52 Last Admin: 12/25/23 20:33 Dose: 50 mls/hr Documented By: [facility] [place]continued Medications Albuterol (Albut/Ipratrop 3mg/0.5mg Neb 3 Ml Vial) 3 ml NEB NOW STA; Protocol Stop: 12/25/23 18:52 Last Admin: 12/25/23 18:55 Dose: 3 ml Documented By: AYESHA Sodium Chloride (Nss) 1,000 mls @ 999 mls/hr IV .Q1H1M ONE Stop: 12/25/23 19:31 Last Infusion: 12/25/23 20:31 Dose: Infused Documented By: [facility] Admin: 12/25/23 18:52 Dose: 999 mls/hr Documented By: AYESHA Ceftriaxone Sodium (Rocephin) 2,000 mg in 50 mls @ 100 mls/hr IV NOW STA Stop: 12/25/23 20:22 Last Infusion: 12/25/23 20:37 Dose: Infused Documented By: [facility] Admin: 12/25/23 20:03 Dose: 100 mls/hr Documented By: [facility] Ioversol (Optiray 320 125ml) 119 ml IV ONCE ONE Stop: 12/25/23 19:43 Last Admin: 12/25/23 19:42 Dose: 119 ml Documented By: EDK Imaging Data Radiologist's Impression: Chest X-Ray 12/25/23 17:45 XR chest 1V not portable CLINICAL HISTORY: Chest pain, nonspecific TECHNIQUE: Single frontal radiograph of the chest was obtained. Comparison: Comparison is made to chest radiograph 03/05/2023 FINDINGS: No lines and tubes are seen. The cardiomediastinal silhouette is stable. The lungs are clear. Small bilateral pleural effusions are seen. IMPRESSION: No acute chest disease. ACT 112: Negative or not required by law. Electronically signed by: Merlin Woody M.D. 12/25/2023 6:44 PM Chest CTA 12/25/23 18:31 CT angio chest PE protocol CLINICAL HISTORY: PE TECHNIQUE: Multidetector row helical CT of the chest was performed with angiographic protocol. Coronal and sagittal reformations were obtained. Coronal and sagittal MIPS were obtained from the axial data set and were submitted for review. Automated dose lowering techniques and/or adjustment according to patient size were utilized for this exam. CT DOSE: 911.91 mGy.cm Comparison: Comparison is made to CT chest 05/02/2023 and chest radiograph 12/25/2023 FINDINGS: Lungs and pleura: Extensive emphysema is seen. There is atelectasis of the right middle lobe and postsurgical changes of right upper lobectomy. Airspace opacities are seen in the superior portion of the right lower lobe as well as in the lingula. Heart and pericardium: Heart size is normal. No pericardial effusion. Vessels: No evidence of pulmonary embolism. Mediastinum and jurgen: Subcentimeter lymph nodes are seen. Chest wall and lower neck: Unremarkable. Abdomen: Unremarkable. Bones: Degenerative changes in the thoracic spine. IMPRESSION: 1. Findings compatible with pneumonia with reactive subcentimeter lymph nodes. No evidence of pulmonary embolus. 2. Redemonstration of emphysema. ACT 112: Negative or not required by law. Electronically signed by: Merlin Woody M.D. 12/25/2023 7:48 PM Discharge Plan Visit Data Chief Complaint: Shortness of Breath/Dyspnea Stated Complaint: SOB, CHILLS ED Provider: Sommer Callahan Discharge Problem: Acute dyspnea, Pneumonia, Sepsis, Leukocytosis Forms Stand Alone Forms: [facility] [employer] Prescriptions Prescriptions: No Action ropinirole 0.5 mg tablet 0.5 mg PO PM Qty: 90 3RF (DME) nebulizers Misc See Rx Instructions .Route Qty: 1 0RF Rx Instructions: please include accessories. betamethasone dipropionate 0.05 % cream 1 applic topical BID PRN (Reason: skin irritation) Qty: 15 3RF azithromycin 250 mg tablet 250 mg PO .COMPLEX Qty: 36 3RF Rx Instructions: 250 mg PO 1 tab p.o. on Rgmjmg-[id number]-Cosxdx; hydrocodone-acetaminophen 5-325 mg tablet 1 tab PO Q4H PRN (Reason: pain) Qty: 14 0RF metoprolol succinate [Toprol XL] 50 mg tablet extended release 24 hr 50 mg PO QAM Qty: 90 3RF levocetirizine 5 mg tablet 5 mg PO DAILY PRN (Reason: Allergy Symptoms) Qty: 90 3RF Rx Instructions: Take daily for 10 days then PRN atorvastatin 10 mg tablet 10 mg PO HS Qty: 90 3RF (DME) Oxygen Home Liters Per Minute See Rx Instructions .Route Rx Instructions: 3L continuous via NC, ok to titrate up to 5L with activity, (09/17/2022) Per patient he is using 2 liters at this time. benzonatate 200 mg capsule 200 mg PO TID PRN (Reason: cough) Qty: 20 4RF triamcinolone acetonide 0.025 % ointment 1 applic topical PRN ipratropium-albuterol 0.5 mg-3 mg(2.5 mg base)/3 mL solution for nebulization 3 ml INH QID PRN (Reason: shortness of breath or wheezing) Qty: 1080 1RF Rx Instructions: needs new script albuterol sulfate 90 mcg/actuation HFA aerosol inhaler 2 puff INH Q4H PRN (Reason: shortness of breath or wheezing) Qty: 3 1RF (DME) Portable Oxygen Misc See Rx Instructions .MEDSUPPLY Qty: 1 0RF Rx Instructions: Oxygen 4 liters continuous via nasal cannula on exertion with portable concentrator. TERRANCE 99 Trelegy Ellipta 200-62.5-25 mcg blister with device 1 inh inhalation QAM Qty: 3 3RF meclizine 25 mg tablet See Rx Instructions PO TID PRN (Reason: dizziness or vertigo) Qty: 30 1RF Rx Instructions: 1/2 to 1 tab PO TID PRN; cholecalciferol (vitamin D3) 50 mcg (2,000 unit) capsule 50 mcg PO QAM aspirin [Adult Low Dose Aspirin] 81 mg tablet,delayed release (DR/EC) 81 mg PO QPM multivitamin Tablet 1 tab PO QAM guaifenesin [Mucinex] 1,200 mg Tablet Extended Release 12hr 1,200 mg PO BID tamsulosin 0.4 mg capsule 0.4 mg PO QAM Referrals Referrals: Aggie Mccollum MD [Primary Care Provider] -
[2023-12-25] MEDS: ALBUT/IPRATROP 3MG/0.5MG NEB 3 ML VIAL NEB STA (18:55)
[2023-12-25 19:16] LABS: Adenovirus PCR Not Detected (NotDetected); Bordetella parapertussis PCR Not Detected (NotDetected); Bordetella pertussis PCR Not Detected (NotDetected); Chlamydia pneumoniae PCR Not Detected (NotDetected); Coronavirus 229E PCR Not Detected (NotDetected); Coronavirus CoV-2 (COVID19)PCR Not Detected (NotDetected); Coronavirus HKU1 PCR Not Detected (NotDetected); Coronavirus NL63 PCR Not Detected (NotDetected); Coronavirus OC43PCR Not Detected (NotDetected); Human Metapneumovirus PCR Not Detected (NotDetected); Influenza A PCR Not Detected (NotDetected); Influenza B PCR Not Detected (NotDetected); Mycoplasma pneumoniae PCR Not Detected (NotDetected); Parainfluenza Virus 1 PCR Not Detected (NotDetected); Parainfluenza Virus 2 PCR Not Detected (NotDetected); Parainfluenza Virus 3 PCR Not Detected (NotDetected); Parainfluenza Virus 4 PCR Not Detected (NotDetected); Respiratory Syncytial VirusPCR Not Detected (NotDetected); Rhinovirus/Enterovirus PCR Not Detected (NotDetected)
[2023-12-25 19:35] LABS: Base Excess VBG 2.4 mEq/L; HCO3 VBG 29 mmol/L; Oxygen Saturation VBG < 60.0 %; PCO2 VBG 51 mmHg (38-50); PO2 VBG 30 mmHg; pH VBG 7.36 (7.36-7.41)
[2023-12-25] MEDS: OPTIRAY 320 125ml IV ONE (19:42)
--- NOTE | 2023-12-25 19:49 | CT Scan Report ---
CT angio chest PE protocol CLINICAL HISTORY: PE TECHNIQUE: Multidetector row helical CT of the chest was performed with angiographic protocol. Chawla l and sagittal reformations were obtained. Coronal and sagittal MIPS were obtained from the axial felipa a set and were submitted for review. Automated dose lowering techniques and/or adjustment according to patient size were utilized for this exam. CT DOSE: 911.91 mGy.cm Comparison: Comparison is made to CT chest 05/02/2023 and chest radiograph 12/25/2023 FINDINGS: Lungs and pleura: Extensive emphysema is seen. There is atelectasis of the right middle lobe and post surgical changes of right upper lobectomy. Airspace opacities are seen in the superior portion of the right lower lobe as well as in the lingula. Heart and pericardium: Heart size is normal. No pericardial effusion. Vessels: No evidence of pulmonary embolism. Mediastinum and jurgen: Subcentimeter lymph nodes are seen. Chest wall and lower neck: Unremarkable. Abdomen: Unremarkable. Bones: Degenerative changes in the thoracic spine. IMPRESSION: 1. Findings compatible with pneumonia with reactive subcentimeter lymph nodes. No evidence of pulmon tian embolus. 2. Redemonstration of emphysema. ACT 112: Negative or not required by law. Electronically signed by: eMrlin Woody M.D. 12/25/2023 7:48 PM
[2023-12-25] MEDS: cefTRIAXone SODIUM 2,000 MG/50 ML BAG IV STA (20:03)
[2023-12-25] MEDS: DOXYCYCLINE HYCLATE 100 MG in DEXTROSE 5% MINI-B 100 ML IV STA (20:33)
[2023-12-25] MEDS ORDERED: VANCOMYCIN CONSULT ACTIVE PRN ×2 (20:53→23:14)
[2023-12-25] MEDS ORDERED: PROMETHAZINE 12.5 MG/50.5 ML BAG IV PRN (21:10)
--- NOTE | 2023-12-25 21:18 | History & Physical Report ---
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: (5) Cancer of ventral surface of tongue: (6) Lung cancer: (7) Dependence on continuous supplemental oxygen: (8) DALIA (obstructive sleep apnea): (9) Periodic limb movement disorder: (10) Enlarged prostate with lower urinary tract symptoms (LUTS): (11) Idiopathic progressive polyneuropathy: (12) H/O deep venous thrombosis: (13) Mobitz I: (14) Cardiomyopathy, nonischemic: Plan Sepsis/acute on chronic respiratory failure with hypoxia/COPD exacerbation/bilateral pneumonia/chronic 2-4 L oxygen dependency/DALIA- The patient will be admitted to telemetry for monitoring of hypoxia and respiratory failure, and relatively low blood pressure with present 100/55 and pulse 112 Was in [facility] from 11/28-12/01/2023, necessitating broad- spectrum antibiotic coverage now CTA is negative for PE, shows right upper lobe lobectomy, right lower lobe and lingular infiltrates, and subcentimeter lymph nodes in the mediastinum and jurgen Nasal cannula 2 L oxygen at baseline, With increasing to 4 L with exercise. Titration goal 94% Vancomycin IV per pharmacokinetic monitoring Zosyn 4.5 g IV every 8 hours Guaifenesin extended release 1200 mg p.o. twice daily Duonebs every 4 hours while awake and every 2 hours when necessary. Sputum Gram stain and culture Give methylprednisolone 125 mg IV now, and then 40 mg IV every 8 hours Change azithromycin from 250 mg orally Tuesday, Tuesday, Tuesday, to every morning Status post 1 L normal saline from the ED Place on NSS plus sign KCl 20 mEq at 100 mL/h x 1 L Continue Tessalon Perles 200 mg p.o. 3 times daily as needed Hypertension/tachycardia/nonischemic cardiomyopathy- Continue aspirin Change metoprolol succinate from 50 mg every morning to 25 mg p.o. twice daily starting tomorrow morning, with hold parameters due to blood pressure and heart rate as noted above Most recent echocardiogram on 04/13/2021, with inability to estimate ejection fraction, but grossly normal LV size and systolic function Order complete echocardiogram BPH with LUTS- Continue tamsulosin Follow urine culture and sensitivity Antibiotics as above Tongue cancer- Status post surgery during hospitalization at [facility] from 11/28-12/01/2023 Reports he is scheduled to undergo radiation therapy soon History of Present Illness Chief Complaint: The patient presents to the emergency department with complaint of 18 to 24 hours of worsening productive cough, shortness of breath, generalized fatigue and weakness. He was exposed to someone who thought they had a cold a few days ago. Primary Care Provider: Aggie Mccollum MD The patient is a 68-year-old male with a past medical history including tongue cancer status post hospitalization and surgery at [facility] from 11/28-12/01/2023, COPD, pulmonary nodule, neuropathic foot ulcer, DALIA, BPH, hepatitis C antibody positivity, history of DVT, PLMD, nonischemic cardiomyopathy, idiopathic progressive polyneuropathy, BPH with LUTS, Peyronie's disease, and solitary pulmonary nodule. He presents to the emergency department symptoms as noted above. Allergies Allergy/AdvReac Type Severity Reaction Status Date / Time diltiazem Allergy Intermediate REDNESS Verified 11/17/23 11:09 "MADE ME LOOK LIKE A STRAWBERRY" bee venom protein (honey bee) Allergy Unknown LOCAL Verified 11/17/23 11:09 SWELLING Home Medications Medication Instructions Recorded Confirmed Type multivitamin 1 tab PO QAM 02/11/18 12/25/23 History aspirin 81 mg tablet,delayed 81 mg PO QPM 06/09/21 12/25/23 History release (Adult Low Dose Aspirin) cholecalciferol (vitamin D3) 50 50 mcg PO QAM 06/09/21 12/25/23 History mcg (2,000 unit) capsule ipratropium 0.5 mg-albuterol 3 mg 3 ml inhalation QID PRN shortness 01/13/22 12/25/23 Rx (2.5 mg base)/3 mL nebulization of breath or wheezing #1,080 vials soln triamcinolone acetonide 0.025 % 1 applic topical PRN 02/08/22 12/25/23 History topical ointment guaifenesin 1,200 mg tablet, 1,200 mg PO BID 09/15/22 12/25/23 History extended release 12 hr (Mucinex) tamsulosin 0.4 mg capsule 0.4 mg PO QAM 07/12/23 10/20/24 History Oxygen Home 09/17/22 12/25/23 History meclizine 25 mg tablet See Rx Instructions PO TID PRN 01/12/23 12/25/23 Rx dizziness or vertigo #30 tabs ropinirole 0.5 mg tablet 0.5 mg PO PM #90 tabs 02/15/23 12/25/23 Rx benzonatate 200 mg capsule 200 mg PO TID PRN cough #20 caps 03/01/23 12/25/23 Rx nebulizers #1 ea 04/15/23 12/25/23 Rx betamethasone dipropionate 0.05 % 1 applic topical BID PRN skin 04/21/23 12/25/23 Rx topical cream irritation #15 grams azithromycin 250 mg tablet 250 mg PO .COMPLEX #36 tabs 06/08/23 12/25/23 Rx Portable Oxygen #1 ea 06/21/23 12/25/23 Rx albuterol sulfate 90 mcg/actuation 2 puff inhalation Q4H PRN 06/21/23 12/25/23 Rx aerosol inhaler shortness of breath or wheezing #3 Inhalers fluticasone fur. 200 mcg-umeclid 1 inh inhalation QAM #3 Inhalers 06/21/23 12/25/23 Rx 62.5 mcg-vilant 25 mcg inhalat.powder (Trelegy Ellipta) hydrocodone 5 mg-acetaminophen 325 1 tab PO Q4H PRN pain #14 tabs 08/18/23 12/25/23 Rx mg tablet atorvastatin 10 mg tablet 10 mg PO HS #90 tabs 09/02/23 12/25/23 Rx levocetirizine 5 mg tablet 5 mg PO DAILY PRN Allergy Symptoms 09/02/23 12/25/23 Rx #90 tabs metoprolol succinate 50 mg 50 mg PO QAM #90 tabs 09/02/23 12/25/23 Rx tablet,extended release 24 hr (Toprol XL) Past Med/Surg History Problem List (Updated 12/25/23 @ 21:30 by Carlos Sabillon MD) Acute on chronic respiratory failure with hypoxia Cancer of ventral surface of tongue Cancer determined by biopsy of tongue 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 "will bump up if needed" 2nd degree AV block (Chronic) Cardiomyopathy, nonischemic (Chronic) Chronic deep vein thrombosis of lower extremity (Chronic) Enlarged prostate with lower urinary tract symptoms (LUTS) (Chronic) Hearing difficulty (Chronic) Idiopathic progressive polyneuropathy (Chronic) Lumbar back pain (Chronic) Peyronie's disease (Chronic) Sleep related hypoxia (Chronic) Solitary pulmonary nodule (Chronic) Medical History (Updated 12/25/23 @ 21:30 by Carlos Sabillon MD) Dependence on continuous supplemental oxygen wears 1-3l nc cont as needed. "will bump up if needed" Lumbar back pain Polyneuropathy Periodic limb movement BPH (benign prostatic hyperplasia) History of foot ulcer resolved Elevated cholesterol Hx of Mobitz type I block pt reports tachycardia>reason for metoprolol Hyperlipidemia History of COVID-19 02/2023- hospitalized at [facility] Vitamin D deficiency hx 2nd degree AV block follows w/ Dr Holloway DALIA (obstructive sleep apnea) uses 2 lpm HS Pulmonary nodule Neuropathy Arthritis History of anemia History of lung cancer RUL, s/p lobectomy - [facility], 2011>chemo and radiation H/O deep venous thrombosis 2011>when going through chemo (was on coumadin for years) Chronic respiratory failure with hypoxia follows w/ Dr Seo H/O testicular mass benign Restless leg syndrome Stage 4 very severe COPD by GOLD classification Surgical History (Updated 12/22/23 @ 08:55 by Joy Epstein RN) History of surgery S/P right partial glossectomy;Right neck dissection;Placement of acellular dermal matrix graft on 11/29/23 Dr. Oliver H/O excision of mass right lateral tongue, nasopharyngeal scope, frozen section; 08/18/23 Dr Nawaf Durham History of surgery on lower extremity left (hardware intact) History of lumbar surgery laminectomy History of cystoscopy History of esophagogastroduodenoscopy (EGD) History of colonoscopy History of tooth extraction History of tonsillectomy History of lumbar laminectomy History of lung surgery RUE lobectomy r/t lung cancer Hx of fusion of cervical spine good rom Hx of cholecystectomy (1990) Family History (Updated 10/12/23 @ 09:24 by Ellie Ochoa RN) Father Stroke syndrome Gallbladder disease Mother Gallbladder disease Lung disease Hypertension Cardiac disorder Congestive heart failure Brother Myocardial infarction Sister No problems noted. Denies family history of Ovarian cancer Prostate cancer Breast cancer Colorectal cancer Social History (Updated 10/12/23 @ 09:26 by Ellie Ochoa RN) Smoking Status: Former smoker Tobacco Type: Cigarettes Age Started Using Tobacco: 18; Age Quit Using Tobacco: 56; packs per day: 1.5; Cigarettes Per Day: 20-30 per day; Second Hand Exposure: Yes (hx); Do You Dip or Chew Tobacco: No; Hx Alcohol Use: Yes Alcohol type: beer Alcohol Intake Frequency: Monthly or Less Alcohol Intake Frequency Comment: social; 3 cans per year; Hx Substance Use: No Preferred Language: Algerian Communication Ability: Effective Visual Impairment: Limited Hearing Ability: Use of Hearing Aid Electric Power Superintendent Required: No Beliefs That Will Affect Care: None marital status: Current Living Situation: Spouse Current Living Situation Comment: Lives with current occupational status: employed and retired 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, 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 How many Children do You have: 5 Feels Safe at Home: Yes Childhood Exposure to Second-Hand Smoke: Yes Diet: regular Diet Comment: regular Dental Care, Regularly: No Physical Activity Frequency: Does not Exercise Seatbelt Use: never Sunscreen Use: No Assistive Devices: Denture - Upper, Denture - Lower, Glasses, Hearing Aid - Bilateral, Nebulizer, Oxygen - at Night and Oxygen - Continuous Review of Systems Review of Systems: The patient denies chest pain, palpitations, lower extremity swelling, sore throat, fevers, chills, sweats, nausea, vomiting, diarrhea , constipation, abdominal pain, pelvic pain, blood in urine or stool, dysuria, urinary frequency or urgency, lightheadedness, dizziness, headache, memory loss, loss of consciousness, rash, abnormal bruising or bleeding, imbalance, focal weakness, numbness or tingling in arms or legs, generalized arthralgias or myalgias, neck pain, or night sweats. The review of systems is otherwise negative other than for that already noted above, and at least 10 systems have been reviewed. Physical Exam Physical Exam: The patient is awake, alert and oriented 3, well developed and well nourished, normocephalic and atraumatic, lying in bed and in no acute distress, with audible rhonchorous breath sounds HEENT--PERRL, EOMI, mucous membranes and oropharynx normal Neck--supple. No JVD. No bruits. Thyroid normal, trachea midline, no adenopathy. Heart--normal S1 and S2. No murmurs, rubs or gallops. Lungs--coarse breath sounds bilaterally. No respiratory distress, no accessory muscle use. Abdomen--normal bowel sounds and soft. Nontender. Nondistended, no hernias or masses, no organomegaly. Extremities--no cyanosis or clubbing. No edema. There are good distal pulses b/l. Dermatologic--normal skin turgor, normal color, no abnormal lymph nodes, no rash. Neurologic--cranial nerves II through XII grossly intact. Rheumatologic--normal range of motion. Psychiatric--normal affect. Results & Data Results & Data Vital Signs (Past 12 Hours) Vital Signs Temp Pulse Resp BP Pulse Ox O2 Del Method O2 Flow Rate 12/25/23 20:21 112 H 30 H 100/55 L 96 Nasal Cannula 2 12/25/23 20:03 112 H 30 H 88/61 L 96 Nasal Cannula 2 12/25/23 19:51 113 H 30 H 83/45 L 97 Nasal Cannula 2 12/25/23 19:27 114 H 26 H 100/56 L 97 Nasal Cannula 2 12/25/23 19:00 113 H 28 H 90/62 L 99 Nasal Cannula 2 12/25/23 18:33 115 H 32 H 95 Nasal Cannula 2 12/25/23 18:30 88/61 L 12/25/23 18:30 88/61 L 12/25/23 18:30 88/61 L 12/25/23 18:27 113 H 33 H 94 12/25/23 18:21 117 H 33 H 94 12/25/23 18:11 94 Nasal Cannula 2 12/25/23 18:11 94 Nasal Cannula 2 12/25/23 18:07 121 H 12/25/23 18:04 97/72 L 12/25/23 17:41 36.9 C 117 H 12 91/53 L 92 Nasal Cannula 2 Laboratory Results Laboratory Results WBC 12.65 K/ul (4.8-10.8) H 12/25/23 17:58 RBC 4.74 M/uL (4.70-6.10) 12/25/23 17:58 Hgb 13.7 g/dl (14.0-18.0) L 12/25/23 17:58 Hct 40.6 % (42.0-52.0) L 12/25/23 17:58 MCV 85.7 fL (80.0-100.0) 12/25/23 17:58 MCH 28.9 pg (25.0-34.0) 12/25/23 17:58 MCHC 33.7 g/dL (32.0-36.0) 12/25/23 17:58 RDW Std Deviation 40.7 fL (36.4-46.3) 12/25/23 17:58 RDW Coeff of Dinesh 13.1 % (11.5-14.5) 12/25/23 17:58 Plt Count 177 K/uL (130-400) 12/25/23 17:58 MPV 10.1 fL (9.4-12.4) 12/25/23 17:58 Immature Gran % (Auto) 0.3 % 12/25/23 17:58 Neut % (Auto) 88.7 % 12/25/23 17:58 Lymph % (Auto) 5.9 % 12/25/23 17:58 [place] % (Auto) 4.8 % 12/25/23 17:58 Eos % (Auto) 0.1 % 12/25/23 17:58 Baso % (Auto) 0.2 % 12/25/23 17:58 Neut # (Auto) 11.21 K/uL (1.40-6.50) H 12/25/23 17:58 Lymph # (Auto) 0.75 K/uL (1.20-3.40) L 12/25/23 17:58 [place] # (Auto) 0.61 K/uL (0.11-0.59) H 12/25/23 17:58 Eos # (Auto) 0.01 K/uL (0.00-0.50) 12/25/23 17:58 Baso # (Auto) 0.03 K/uL (0.00-0.20) 12/25/23 17:58 Immature Gran # (Auto) 0.04 K/uL (0.01-0.20) 12/25/23 17:58 PT 11.0 Seconds (9.0-12.0) 12/25/23 17:58 INR 1.0 (0.9-1.1) 12/25/23 17:58 APTT 26 Seconds (21-31) 12/25/23 17:58 PTT Ratio 1.0 12/25/23 17:58 VBG pH 7.36 (7.36-7.41) 12/25/23 19:25 VBG pCO2 51 mmHg (38-50) H 12/25/23 19:25 VBG pO2 30 mmHg 12/25/23 19:25 VBG HCO3 29 mmol/L 12/25/23 19:25 VBG O2 Saturation < 60.0 % 12/25/23 19:25 VBG Base Excess 2.4 mEq/L 12/25/23 19:25 Sodium 135 mmol/L (136-145) L 12/25/23 17:58 Potassium 4.1 mmol/L (3.5-5.1) 12/25/23 17:58 Chloride 100 mmol/L (98-107) 12/25/23 17:58 Carbon Dioxide 28 mmol/L (21-32) 12/25/23 17:58 Anion Gap 7 (3-11) 12/25/23 17:58 BUN 18 mg/dl (6-23) 12/25/23 17:58 Creatinine 1.09 mg/dl (0.6-1.4) 12/25/23 17:58 Est Cr Clr Drug Dosing 83.3 ml/min 12/25/23 17:58 eGFR 73.93 12/25/23 17:58 BUN/Creatinine Ratio 16.5 (10-20) 12/25/23 17:58 Glucose 127 mg/dl (70-99(Fasting)) H 12/25/23 17:58 Lactate 1.7 mmol/L (0.4-2.0) 12/25/23 18:44 Calcium 9.2 mg/dl (8.6-10.3) 12/25/23 17:58 Total Bilirubin 1.1 mg/dl (0.2-1.0) H 12/25/23 17:58 AST 19 U/L (13-39) 12/25/23 17:58 ALT 15 U/L (7-52) 12/25/23 17:58 Alkaline Phosphatase 81 U/L (34-104) 12/25/23 17:58 Troponin I High Sens 5.6 pg/ml (0-20) 12/25/23 17:58 B-Natriuretic Peptide 40 pg/ml (0-100) 12/25/23 17:58 Total Protein 7.0 gm/dl (6.0-8.3) 12/25/23 17:58 Albumin 4.1 gm/dl (3.4-5.0) 12/25/23 17:58 Globulin 2.9 gm/dl (2.5-4.0) 12/25/23 17:58 Albumin/Globulin Ratio 1.4 (0.9-2) 12/25/23 17:58 Procalcitonin 0.13 ng/ml (0-0.5) 12/25/23 18:44 Adenovirus (PCR) Not Detected (NotDetected) 12/25/23 18:08 B. pertussis DNA (PCR) Not Detected (NotDetected) 12/25/23 18:08 B.parapertussis DNA PCR Not Detected (NotDetected) 12/25/23 18:08 C. pneumoniae DNA (PCR) Not Detected (NotDetected) 12/25/23 18:08 Coronavirus OC43 (PCR) Not Detected (NotDetected) 12/25/23 18:08 Coronavirus HKU1 (PCR) Not Detected (NotDetected) 12/25/23 18:08 Coronavirus 229E (PCR) Not Detected (NotDetected) 12/25/23 18:08 SARS-CoV-2 (PCR) Not Detected (NotDetected) 12/25/23 18:08 Coronavirus NL63 (PCR) Not Detected (NotDetected) 12/25/23 18:08 Human Metapneumovir PCR Not Detected (NotDetected) 12/25/23 18:08 Influenza Type A (PCR) Not Detected (NotDetected) 12/25/23 18:08 Influenza Type B (PCR) Not Detected (NotDetected) 12/25/23 18:08 M. pneumoniae (PCR) Not Detected (NotDetected) 12/25/23 18:08 Parainfluenza 1 (PCR) Not Detected (NotDetected) 12/25/23 18:08 Parainfluenza 2 (PCR) Not Detected (NotDetected) 12/25/23 18:08 Parainfluenza 3 (PCR) Not Detected (NotDetected) 12/25/23 18:08 Parainfluenza 4 (PCR) Not Detected (NotDetected) 12/25/23 18:08 RSV (PCR) Not Detected (NotDetected) 12/25/23 18:08 Entero/Rhino (PCR) Not Detected (NotDetected) 12/25/23 18:08 Impressions Chest X-Ray 12/25/23 17:45 XR chest 1V not portable CLINICAL HISTORY: Chest pain, nonspecific TECHNIQUE: Single frontal radiograph of the chest was obtained. Comparison: Comparison is made to chest radiograph 03/05/2023 FINDINGS: No lines and tubes are seen. The cardiomediastinal silhouette is stable. The lungs are clear. Small bilateral pleural effusions are seen. IMPRESSION: No acute chest disease. ACT 112: Negative or not required by law. Electronically signed by: Merlin Woody M.D. 12/25/2023 6:44 PM Chest CTA 12/25/23 18:31 CT angio chest PE protocol CLINICAL HISTORY: PE TECHNIQUE: Multidetector row helical CT of the chest was performed with angiographic protocol. Coronal and sagittal reformations were obtained. Coronal and sagittal MIPS were obtained from the axial data set and were submitted for review. Automated dose lowering techniques and/or adjustment according to patient size were utilized for this exam. CT DOSE: 911.91 mGy.cm Comparison: Comparison is made to CT chest 05/02/2023 and chest radiograph 12/25/2023 FINDINGS: Lungs and pleura: Extensive emphysema is seen. There is atelectasis of the right middle lobe and postsurgical changes of right upper lobectomy. Airspace opacities are seen in the superior portion of the right lower lobe as well as in the lingula. Heart and pericardium: Heart size is normal. No pericardial effusion. Vessels: No evidence of pulmonary embolism. Mediastinum and jurgen: Subcentimeter lymph nodes are seen. Chest wall and lower neck: Unremarkable. Abdomen: Unremarkable. Bones: Degenerative changes in the thoracic spine. IMPRESSION: 1. Findings compatible with pneumonia with reactive subcentimeter lymph nodes. No evidence of pulmonary embolus. 2. Redemonstration of emphysema. ACT 112: Negative or not required by law. Electronically signed by: Merlin Woody M.D. 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
[2023-12-25] MEDS: PIPERACILLIN/TAZOBACTAM 4.5 GM/100 ML BAG IV STA (22:06)
[2023-12-25] MEDS: guaiFENesin 600 MG TABCR PO STA (22:06)
[2023-12-25] MEDS: methylPREDNISolone 125 MG/2 ML VIAL IV STA (22:06)
[2023-12-25] MEDS: NSS + 20MEQ KCL 20 MEQ/1,000 ML BAG IV STA (22:11)
[2023-12-25] MEDS: VANCOMYCIN HCL 2,750 MG in SODIUM CHLORIDE 0.9% 500 ML IV ONE (22:24)
[2023-12-25] MEDS ORDERED: guaiFENesin 600 MG TABCR PO SCH (23:14)
[2023-12-25] MEDS ORDERED: ACETAMINOPHEN 325 MG TAB PO PRN (23:14)
[2023-12-25] MEDS ORDERED: HYDROCODONE/ACETAMOPHEN 5/325MG TAB PO PRN (23:14)
[2023-12-25] MEDS ORDERED: BENZONATATE 100 MG CAPSULE PO PRN (23:14)
[2023-12-25] MEDS ORDERED: MECLIZINE HCL 25 MG TAB PO PRN (23:14)
[2023-12-25] MEDS ORDERED: BETAMETHASONE DIP AUG (DIPROLENE) 0.05% CR 15 GM TUBE EXT PRN (23:20)
[2023-12-25] MEDS: ASPIRIN 81 MG ECTAB PO SCH (23:45)
[2023-12-25] MEDS: rOPINIRole HCL 0.25 MG TABLET PO SCH (23:46)
[2023-12-25] MEDS: ATORVASTATIN 10 MG TAB PO SCH (23:46)
[2023-12-26] MEDS: ALBUT/IPRATROP 3MG/0.5MG NEB 3 ML VIAL ONE (01:25)
[2023-12-26] MEDS ORDERED: methylPREDNISolone 10 mg/mL (For Ped Dose < 7mg) IV SCH (06:00)
[2023-12-26] MEDS: ALBUT/IPRATROP 3MG/0.5MG NEB 3 ML VIAL NEB SCH (07:00)
[2023-12-26] MEDS: PIPERACILLIN/TAZOBACTAM 4.5 GM/100 ML BAG IV SCH (07:09)
[2023-12-26] MEDS: methylPREDNISolone 40 MG in SYRINGE 0 ML IV SCH (07:09)
[2023-12-26 07:54] LABS: Hemoglobin 12.4 g/dl (14.0-18.0); Mean Corpuscular Hemoglobin 28.7 pg (25.0-34.0); Mean Corpuscular Hgb Conc 32.6 g/dL (32.0-36.0); Mean Platelet Volume 10.4 fL (9.4-12.4); Platelet Count 147 K/uL (130-400); RDW Coefficient of Variation 13.3 % (11.5-14.5); RDW Standard Deviation 43.6 fL (36.4-46.3); Red Blood Count 4.32 M/uL (4.70-6.10); White Blood Count 11.74 K/ul (4.8-10.8)
[2023-12-26] MEDS: guaiFENesin 600 MG TABCR PO SCH (08:04)
[2023-12-26] MEDS: AZITHROMYCIN 250 MG TAB PO SCH (08:04)
[2023-12-26] MEDS: TAMSULOSIN HCL 0.4 MG CAP PO SCH (08:05)
[2023-12-26] MEDS: METOPROLOL SUCC 25MG EXT REL TAB PO SCH (08:05)
[2023-12-26] MEDS: CHOLECALCIFEROL 25 MCG (1000 UNITS) TAB PO SCH (08:05)
[2023-12-26] MEDS: MULTIVITAMIN TAB PO SCH (08:05)
[2023-12-26 08:12] LABS: Albumin Level 3.5 gm/dl (3.4-5.0); BUN Creatinine Ratio 14.4 (10-20); Calcium 8.4 mg/dl (8.6-10.3); Creatinine Clr Calc Pharmacy 86.8 ml/min; Magnesium 1.8 mg/dl (1.7-2.4); Phosphorus 2.5 mg/dl (2.5-4.9); Potassium 4.6 mmol/L (3.5-5.1)
[2023-12-26 08:18] LABS: Basophils # (auto) 0.01 K/uL (0.00-0.20); Basophils % (auto) 0.1 %; Immature Granulocytes # (auto) 0.06 K/uL (0.01-0.20); Immature Granulocytes % (auto) 0.5 %; Lymphocytes # (auto) 0.53 K/uL (1.20-3.40); Lymphocytes % (auto) 4.5 %; Monocytes # (auto) 0.25 K/uL (0.11-0.59); Monocytes % (auto) 2.1 %; Neutrophils # (auto) 10.89 K/uL (1.40-6.50); Neutrophils % (auto) 92.8 %
[2023-12-26] MEDS ORDERED: VANCOMYCIN HCL 1,750 MG in SODIUM CHLORIDE 0.9% 500 ML IV SCH (09:00)
--- NOTE | 2023-12-26 10:31 | XCELERA ---
[id number]
--- NOTE | 2023-12-26 13:05 | Hospitalist Progress Note ---
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: (5) Cancer of ventral surface of tongue: (6) Lung cancer: (7) Dependence on continuous supplemental oxygen: (8) DALIA (obstructive sleep apnea): (9) Periodic limb movement disorder: (10) Enlarged prostate with lower urinary tract symptoms (LUTS): (11) Idiopathic progressive polyneuropathy: (12) H/O deep venous thrombosis: (13) Mobitz I: (14) Cardiomyopathy, nonischemic: Plan Sepsis/acute on chronic respiratory failure with hypoxia/COPD exacerbation/bilateral pneumonia/chronic 2-4 L oxygen dependency/DALIA- Pneumonia treatment with vancomycin, Zosyn and azithromycin MRSA swab negative Vancomycin discontinued CTA is negative for PE, shows right upper lobe lobectomy, right lower lobe and lingular infiltrates, and subcentimeter lymph nodes in the mediastinum and jurgen Nasal cannula 2 L oxygen at baseline, With increasing to 4 L with exercise. Titration goal 94% Guaifenesin extended release 1200 mg p.o. twice daily Duonebs every 4 hours while awake and every 2 hours when necessary. Sputum Gram stain and culture Continue Solu-Medrol 40 mg IV every 8 hours Change azithromycin from 250 mg orally Tuesday, Tuesday, Tuesday, to every morning Continue Tessalon Perles 200 mg p.o. 3 times daily as needed Patient is feeling better overall Hypertension/tachycardia/nonischemic cardiomyopathy- Continue aspirin Change metoprolol succinate from 50 mg every morning to 25 mg p.o. twice daily, with hold parameters due to blood pressure and heart rate as noted above Most recent echocardiogram on 04/13/2021, with inability to estimate ejection fraction, but grossly normal LV size and systolic function Order complete echocardiogram, pending BPH with LUTS- Continue tamsulosin Follow urine culture and sensitivity Antibiotics as above Tongue cancer- Status post surgery during hospitalization at [facility] from 11/28-12/01/2023 Reports he is scheduled to undergo radiation therapy soon Admission and Anticipated Discharge Date Admission Date: December 25, 2023 Subjective Patient says he feels better overall. Breathing better. Not back to his usual baseline yet. Review of Systems Review of Systems: All systems reviewed & are unremarkable except as noted in Subjective Physical Exam Physical Exam: General: Awake, conversant Heart: S1, S2/regular rate and rhythm, no murmur rubs or gallops Lungs: Diminished breath sounds bilaterally. Normal effort Abdomen: Soft/nontender/nondistended. No hepatosplenomegaly Extremities: No clubbing/cyanosis. No edema Behavior: Appropriate, cooperative Results & Data Results & Data Vital Signs (Past 12 Hours) Vital Signs Temp Pulse Pulse Resp BP Pulse Ox O2 Del Method 12/26/23 12:00 82 22 94 Nasal Cannula 12/26/23 11:19 36.5 C 85 18 108/54 L 94 Room Air 12/26/23 08:10 Nasal Cannula 12/26/23 08:02 36.3 C L 92 H 27 H 104/66 96 Nasal Cannula 12/26/23 07:00 75 12/26/23 07:00 20 Nasal Cannula 12/26/23 03:30 36.4 C L 83 20 98/63 L 99 Nasal Cannula 12/26/23 01:26 20 98 Nasal Cannula O2 Flow Rate 12/26/23 12:00 2 12/26/23 11:19 12/26/23 08:10 2 12/26/23 08:02 3 12/26/23 07:00 12/26/23 07:00 3 12/26/23 03:30 3 12/26/23 01:26 3 Laboratory Results Abnormal lab results 12/25/23 12/25/23 12/26/23 Range/Units 17:58 19:25 07:04 WBC 12.65 H 11.74 H (4.8-10.8) K/ul RBC 4.32 L (4.70-6.10) M/uL Hgb 13.7 L 12.4 L (14.0-18.0) g/dl Hct 40.6 L 38.0 L (42.0-52.0) % Neut # (Auto) 11.21 H 10.89 H (1.40-6.50) K/uL Lymph # (Auto) 0.75 L 0.53 L (1.20-3.40) K/uL [place] # (Auto) 0.61 H (0.11-0.59) K/uL VBG pCO2 51 H (38-50) mmHg Sodium 135 L (136-145) mmol/L Glucose 127 H 182 H (70-99(Fasting)) mg/dl Calcium 8.4 L (8.6-10.3) mg/dl Total Bilirubin 1.1 H (0.2-1.0) mg/dl Diagnostic Findings Chest X-Ray 12/25/23 17:45 XR chest 1V not portable CLINICAL HISTORY: Chest pain, nonspecific TECHNIQUE: Single frontal radiograph of the chest was obtained. Comparison: Comparison is made to chest radiograph 03/05/2023 FINDINGS: No lines and tubes are seen. The cardiomediastinal silhouette is stable. The lungs are clear. Small bilateral pleural effusions are seen. IMPRESSION: No acute chest disease. ACT 112: Negative or not required by law. Electronically signed by: Merlin Woody M.D. 12/25/2023 6:44 PM Chest CTA 12/25/23 18:31 CT angio chest PE protocol CLINICAL HISTORY: PE TECHNIQUE: Multidetector row helical CT of the chest was performed with angiographic protocol. Coronal and sagittal reformations were obtained. Coronal and sagittal MIPS were obtained from the axial data set and were submitted for review. Automated dose lowering techniques and/or adjustment according to patient size were utilized for this exam. CT DOSE: 911.91 mGy.cm Comparison: Comparison is made to CT chest 05/02/2023 and chest radiograph 12/25/2023 FINDINGS: Lungs and pleura: Extensive emphysema is seen. There is atelectasis of the right middle lobe and postsurgical changes of right upper lobectomy. Airspace opacities are seen in the superior portion of the right lower lobe as well as in the lingula. Heart and pericardium: Heart size is normal. No pericardial effusion. Vessels: No evidence of pulmonary embolism. Mediastinum and jurgen: Subcentimeter lymph nodes are seen. Chest wall and lower neck: Unremarkable. Abdomen: Unremarkable. Bones: Degenerative changes in the thoracic spine. IMPRESSION: 1. Findings compatible with pneumonia with reactive subcentimeter lymph nodes. No evidence of pulmonary embolus. 2. Redemonstration of emphysema. ACT 112: Negative or not required by law. Electronically signed by: Merlin Woody M.D. 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
--- NOTE | 2023-12-27 06:02 | Electrocardiogram Report ---
Test Reason : Blood Pressure : */* mmHG Vent. Rate : 123 BPM Atrial Rate : 123 BPM P-R Int : 170 ms QRS Dur : 72 ms QT Int : 292 ms P-R-T Axes : 71 50 63 degrees QTcB Int : 418 ms Sinus tachycardia Otherwise normal ECG When compared with ECG of 02-Nov-2023 09:00, Vent. rate has increased by 41 bpm Confirmed by Peña Hester ([id number]) on 12/27/2023 6:01:59 AM Referred By: REFERRED SELF Confirmed By: Peña Hester
[2023-12-27 06:53] LABS: Hematocrit (blood only) 35.4 % (42.0-52.0); Mean Corpuscular Hemoglobin 29.3 pg (25.0-34.0); Mean Corpuscular Hgb Conc 33.9 g/dL (32.0-36.0); Mean Corpuscular Volume 86.3 fL (80.0-100.0); Mean Platelet Volume 10.5 fL (9.4-12.4); Platelet Count 172 K/uL (130-400); RDW Coefficient of Variation 13.2 % (11.5-14.5); RDW Standard Deviation 41.5 fL (36.4-46.3); White Blood Count 12.12 K/ul (4.8-10.8)
[2023-12-27 07:13] LABS: Albumin Level 3.4 gm/dl (3.4-5.0); BUN Creatinine Ratio 18.1 (10-20); Calcium 8.6 mg/dl (8.6-10.3); Creatinine Clr Calc Pharmacy 85.3 ml/min; Magnesium 1.9 mg/dl (1.7-2.4); Phosphorus 2.3 mg/dl (2.5-4.9); Potassium 4.4 mmol/L (3.5-5.1)
[2023-12-27 07:40] LABS: Basophils # (auto) 0.01 K/uL (0.00-0.20); Basophils % (auto) 0.1 %; Dohle Bodies 1+; Immature Granulocytes # (auto) 0.08 K/uL (0.01-0.20); Immature Granulocytes % (auto) 0.7 %; Lymphocytes # (auto) 0.43 K/uL (1.20-3.40); Lymphocytes % (auto) 3.5 %; Monocytes # (auto) 0.41 K/uL (0.11-0.59); Monocytes % (auto) 3.4 %; Neutrophils # (auto) 11.19 K/uL (1.40-6.50); Neutrophils % (auto) 92.3 %; Polychromasia 1+
--- NOTE | 2023-12-27 13:56 | Hospitalist Progress Note ---
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: (5) Cancer of ventral surface of tongue: (6) Lung cancer: (7) Dependence on continuous supplemental oxygen: (8) DALIA (obstructive sleep apnea): (9) Periodic limb movement disorder: (10) Enlarged prostate with lower urinary tract symptoms (LUTS): (11) Idiopathic progressive polyneuropathy: (12) H/O deep venous thrombosis: (13) Mobitz I: (14) Cardiomyopathy, nonischemic: Plan Sepsis/acute on chronic respiratory failure with hypoxia/COPD exacerbation/bilateral pneumonia/chronic 2-4 L oxygen dependency/DALIA- Pneumonia treatment with vancomycin, Zosyn and azithromycin MRSA swab negative Vancomycin discontinued CTA is negative for PE, shows right upper lobe lobectomy, right lower lobe and lingular infiltrates, and subcentimeter lymph nodes in the mediastinum and jurgen Nasal cannula 2 L oxygen at baseline, With increasing to 4 L with exercise. Titration goal 94% Guaifenesin extended release 1200 mg p.o. twice daily Duonebs every 4 hours while awake and every 2 hours when necessary. Sputum Gram stain and culture Lowered the frequency of Solu-Medrol to 40 mg IV twice daily Change azithromycin from 250 mg orally Tuesday, Tuesday, Tuesday, to every morning Continue Tessalon Perles 200 mg p.o. 3 times daily as needed Patient is feeling better overall Blood cultures negative so far Hypertension/tachycardia/nonischemic cardiomyopathy- Continue aspirin Change metoprolol succinate from 50 mg every morning to 25 mg p.o. twice daily, with hold parameters due to blood pressure and heart rate as noted above Most recent echocardiogram on 04/13/2021, with inability to estimate ejection fraction, but grossly normal LV size and systolic function Echocardiogram reviewed. No changes. EF 60 to 65% with no regional wall motion abnormalities. Mild concentric LVH. BPH with LUTS- Continue tamsulosin Follow urine culture and sensitivity Antibiotics as above Tongue cancer- Status post surgery during hospitalization at [facility] from 11/28-12/01/2023 Reports he is scheduled to undergo radiation therapy soon Admission and Anticipated Discharge Date Admission Date: December 25, 2023 Subjective Patient was seen and examined at 11:10 AM. He says he feels better overall. Breathing better. Coughing less. Review of Systems Review of Systems: All systems reviewed & are unremarkable except as noted in Subjective Physical Exam Physical Exam: General: Awake, conversant Heart: S1, S2/regular rate and rhythm, no murmur rubs or gallops Lungs: Diminished breath sounds bilaterally. Normal effort Abdomen: Soft/nontender/nondistended. No hepatosplenomegaly Extremities: No clubbing/cyanosis. No edema Behavior: Appropriate, cooperative Results & Data Results & Data Vital Signs (Past 12 Hours) Vital Signs Temp Pulse Resp BP Pulse Ox O2 Del Method O2 Flow Rate 12/27/23 11:34 Nasal Cannula 2 12/27/23 11:30 36.4 C L 98 H 16 116/69 97 Nasal Cannula 2 12/27/23 11:28 90 18 95 Nasal Cannula 2 12/27/23 07:58 101 H 17 96 Nasal Cannula 2 12/27/23 07:30 36.4 C L 99 H 18 132/73 95 Nasal Cannula 2 12/27/23 03:49 36.8 C 99 H 20 103/55 L 93 Nasal Cannula 2.0 PG Care Time/CCT Total # of Minutes Spent Total Time Spent with Patient: Total time spent is greater than 50% in coordination of care (as documented) at patient's floor/unit and/or counseling patient: Coding Level of Care Code 38575 SUB INP/OBS CARE 2/35MIN Diagnoses Acute on chronic respiratory failure with hypoxia J96.21 Pneumonia J18.9 COPD exacerbation J44.1 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
[2023-12-27] MEDS: methylPREDNISolone 40 MG in SYRINGE 0 ML IV SCH (20:12)
[2023-12-27] MEDS: ALUMINUM/MAGNESIUM SUSP 30 ML UDC PO PRN (20:19)
[2023-12-27] MEDS: FAMOTIDINE 40 MG TABLET PO ONE (20:52)
[2023-12-28 07:21] LABS: Basophils # (auto) 0.01 K/uL (0.00-0.20); Basophils % (auto) 0.1 %; Hematocrit (blood only) 36.2 % (42.0-52.0); Hemoglobin 11.9 g/dl (14.0-18.0); Immature Granulocytes # (auto) 0.11 K/uL (0.01-0.20); Immature Granulocytes % (auto) 1.2 %; Lymphocytes # (auto) 0.43 K/uL (1.20-3.40); Lymphocytes % (auto) 4.9 %; Mean Corpuscular Hemoglobin 28.7 pg (25.0-34.0); Mean Corpuscular Hgb Conc 32.9 g/dL (32.0-36.0); Mean Corpuscular Volume 87.2 fL (80.0-100.0); Mean Platelet Volume 10.2 fL (9.4-12.4); Monocytes # (auto) 0.36 K/uL (0.11-0.59); Monocytes % (auto) 4.1 %; Neutrophils # (auto) 7.95 K/uL (1.40-6.50); Neutrophils % (auto) 89.7 %; Platelet Count 187 K/uL (130-400); RDW Coefficient of Variation 13.2 % (11.5-14.5); RDW Standard Deviation 41.4 fL (36.4-46.3); Red Blood Count 4.15 M/uL (4.70-6.10); White Blood Count 8.86 K/ul (4.8-10.8)
[2023-12-28 07:57] LABS: Albumin Level 3.3 gm/dl (3.4-5.0); BUN Creatinine Ratio 22.4 (10-20); Calcium 8.6 mg/dl (8.6-10.3); Creatinine Clr Calc Pharmacy 92.5 ml/min; Phosphorus 2.3 mg/dl (2.5-4.9); Potassium 4.2 mmol/L (3.5-5.1)
[2023-12-28] MEDS: cefTRIAXone SODIUM 2,000 MG/50 ML BAG IV SCH (09:46)
--- NOTE | 2023-12-28 15:53 | Hospitalist Progress Note ---
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: (5) Cancer of ventral surface of tongue: (6) Lung cancer: (7) Dependence on continuous supplemental oxygen: (8) DALIA (obstructive sleep apnea): (9) Periodic limb movement disorder: (10) Enlarged prostate with lower urinary tract symptoms (LUTS): (11) Idiopathic progressive polyneuropathy: (12) H/O deep venous thrombosis: (13) Mobitz I: (14) Cardiomyopathy, nonischemic: Plan Sepsis/acute on chronic respiratory failure with hypoxia/COPD exacerbation/bilateral pneumonia/chronic 2-4 L oxygen dependency/DALIA- Pneumonia treatment with vancomycin, Zosyn and azithromycin MRSA swab negative Vancomycin discontinued CTA is negative for PE, shows right upper lobe lobectomy, right lower lobe and lingular infiltrates, and subcentimeter lymph nodes in the mediastinum and jurgen Nasal cannula 2 L oxygen at baseline, With increasing to 4 L with exercise. Titration goal 94% Guaifenesin extended release 1200 mg p.o. twice daily Duonebs every 4 hours while awake and every 2 hours when necessary. Sputum Gram stain and culture Lowered the frequency of Solu-Medrol to 40 mg IV once daily Change azithromycin from 250 mg orally Tuesday, Tuesday, Tuesday, to every morning Continue Tessalon Perles 200 mg p.o. 3 times daily as needed Patient is feeling better overall Blood cultures negative so far Plan to switch to Augmentin and azithromycin tomorrow Hypertension/tachycardia/nonischemic cardiomyopathy- Continue aspirin Change metoprolol succinate from 50 mg every morning to 25 mg p.o. twice daily, with hold parameters due to blood pressure and heart rate as noted above Most recent echocardiogram on 04/13/2021, with inability to estimate ejection fraction, but grossly normal LV size and systolic function Echocardiogram reviewed. No changes. EF 60 to 65% with no regional wall motion abnormalities. Mild concentric LVH. BPH with LUTS- Continue tamsulosin Follow urine culture and sensitivity Antibiotics as above Tongue cancer- Status post surgery during hospitalization at [facility] from 11/28-12/01/2023 He went for his simulation scan for radiation therapy today. Admission and Anticipated Discharge Date Admission Date: December 25, 2023 Subjective Patient was seen at 3:30 PM. He says that he is feeling better overall. Breathing better. Coughing less. He still feels short of breath on exertion. Review of Systems Review of Systems: All systems reviewed & are unremarkable except as noted in Subjective Physical Exam Physical Exam: General: Awake, conversant Heart: S1, S2/regular rate and rhythm, no murmur rubs or gallops Lungs: Diminished breath sounds bilaterally. Some mild wheezing heard bilaterally. Normal effort Abdomen: Soft/nontender/nondistended. No hepatosplenomegaly Extremities: No clubbing/cyanosis. No edema Behavior: Appropriate, cooperative Results & Data Results & Data Vital Signs (Past 12 Hours) Vital Signs Temp Pulse Resp BP Pulse Ox O2 Del Method O2 Flow Rate 12/28/23 15:35 84 18 96 Nasal Cannula 2 12/28/23 15:27 36.2 C L 85 18 135/76 95 Nasal Cannula 2 12/28/23 12:50 36.3 C L 92 H 18 145/72 H 94 Nasal Cannula 12/28/23 10:34 Room Air 12/28/23 07:28 36.5 C 69 16 116/50 L 94 Nasal Cannula 2 12/28/23 07:04 88 18 95 Nasal Cannula 2 12/28/23 04:04 84 18 96 Nasal Cannula 2 Laboratory Results Abnormal lab results 12/28/23 Range/Units 06:34 RBC 4.15 L (4.70-6.10) M/uL Hgb 11.9 L (14.0-18.0) g/dl Hct 36.2 L (42.0-52.0) % Neut # (Auto) 7.95 H (1.40-6.50) K/uL Lymph # (Auto) 0.43 L (1.20-3.40) K/uL BUN/Creatinine Ratio 22.4 H (10-20) Glucose 158 H (70-99(Fasting)) mg/dl Phosphorus 2.3 L (2.5-4.9) mg/dl Albumin 3.3 L (3.4-5.0) gm/dl PG Care Time/CCT Total # of Minutes Spent Total Time Spent with Patient: Total time spent is greater than 50% in coordination of care (as documented) at patient's floor/unit and/or counseling patient: Coding Level of Care Code 86486 SUB INP/OBS CARE MIN Diagnoses Acute on chronic respiratory failure with hypoxia J96.21 Pneumonia J18.9 COPD exacerbation J44.1 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
[2023-12-29] MEDS: ALBUT/IPRATROP 3MG/0.5MG NEB 3 ML VIAL NEB STA (04:23)
[2023-12-29] MEDS: methylPREDNISolone 40 MG in SYRINGE 0 ML IV SCH (08:46)
--- NOTE | 2023-12-29 13:18 | Hospitalist Progress Note ---
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: (5) Cancer of ventral surface of tongue: (6) Lung cancer: (7) Dependence on continuous supplemental oxygen: (8) DALIA (obstructive sleep apnea): (9) Periodic limb movement disorder: (10) Enlarged prostate with lower urinary tract symptoms (LUTS): (11) Idiopathic progressive polyneuropathy: (12) H/O deep venous thrombosis: (13) Mobitz I: (14) Cardiomyopathy, nonischemic: Plan Sepsis/acute on chronic respiratory failure with hypoxia/COPD exacerbation/bilateral pneumonia/chronic 2-4 L oxygen dependency/DALIA- Pneumonia treatment with vancomycin, Zosyn and azithromycin MRSA swab negative Vancomycin discontinued CTA is negative for PE, shows right upper lobe lobectomy, right lower lobe and lingular infiltrates, and subcentimeter lymph nodes in the mediastinum and jurgen Nasal cannula 2 L oxygen at baseline, With increasing to 4 L with exercise. Titration goal 94% Guaifenesin extended release 1200 mg p.o. twice daily Duonebs every 4 hours while awake and every 2 hours when necessary. Sputum Gram stain and culture Switch from Solu-Medrol to prednisone starting tomorrow Discontinue ceftriaxone. Switch to p.o. Keflex tomorrow Continue azithromycin. Discontinue after dose tomorrow Blood cultures negative so far Hypertension/tachycardia/nonischemic cardiomyopathy- Continue aspirin Change metoprolol succinate from 50 mg every morning to 25 mg p.o. twice daily, with hold parameters due to blood pressure and heart rate as noted above Most recent echocardiogram on 04/13/2021, with inability to estimate ejection fraction, but grossly normal LV size and systolic function Echocardiogram reviewed. No changes. EF 60 to 65% with no regional wall motion abnormalities. Mild concentric LVH. BPH with LUTS- Continue tamsulosin Follow urine culture and sensitivity Antibiotics as above Tongue cancer- Status post surgery during hospitalization at [facility] from 11/28-12/01/2023 He went for his simulation scan for radiation therapy today. Disposition: Likely discharge tomorrow 12/29 Admission and Anticipated Discharge Date Admission Date: December 25, 2023 Subjective Patient was seen at 9:45 AM. He says he feels better overall. He needed a breathing treatment at night. Physical Exam Physical Exam: General: Awake, conversant Heart: S1, S2/regular rate and rhythm, no murmur rubs or gallops Lungs: Diminished breath sounds bilaterally. Some mild wheezing heard bilaterally. Normal effort Abdomen: Soft/nontender/nondistended. No hepatosplenomegaly Extremities: No clubbing/cyanosis. No edema Behavior: Appropriate, cooperative Results & Data Results & Data Vital Signs (Past 12 Hours) Vital Signs Temp Pulse Pulse Resp BP Pulse Ox O2 Del Method 12/29/23 11:57 36.4 C L 94 H 18 122/59 L 96 Nasal Cannula 12/29/23 11:35 88 18 96 Nasal Cannula 12/29/23 09:00 90 12/29/23 09:00 Nasal Cannula 12/29/23 08:05 36.5 C 78 16 135/68 97 Nasal Cannula 12/29/23 07:07 80 22 96 Nasal Cannula 12/29/23 04:21 90 17 94 Nasal Cannula 12/29/23 03:04 36.4 C L 83 18 143/84 H 96 Nasal Cannula O2 Flow Rate FiO2 12/29/23 11:57 2 12/29/23 11:35 2 12/29/23 09:00 12/29/23 09:00 2 12/29/23 08:05 2 12/29/23 07:07 2 12/29/23 04:21 2 12/29/23 03:04 2 PG Care Time/CCT Total # of Minutes Spent Total Time Spent with Patient: Total time spent is greater than 50% in coordination of care (as documented) at patient's floor/unit and/or counseling patient: Coding Level of Care Code 02637 SUB INP/OBS CARE 2/35MIN Diagnoses Acute on chronic respiratory failure with hypoxia J96.21 Pneumonia J18.9 COPD exacerbation J44.1 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
[2023-12-29] MEDS: LOPERAMIDE HCL 2 MG CAP PO PRN (14:37)
[2023-12-29] MEDS: cephALEXin 500 MG CAP PO SCH (22:40)
[2023-12-30 07:50] VITALS: TEMP 97.9
[2023-12-30] MEDS: predniSONE 20 MG TAB PO SCH (08:20)
--- NOTE | 2023-12-30 10:32 | Discharge Summary ---
Date of Service December 30, 2023 Admission HPI Per Admitting Provider The patient is a 68-year-old male with a past medical history including tongue cancer status post hospitalization and surgery at [facility] from 11/28-12/01/2023, COPD, pulmonary nodule, neuropathic foot ulcer, DALIA, BPH, hepatitis C antibody positivity, history of DVT, PLMD, nonischemic cardiomyopathy, idiopathic progressive polyneuropathy, BPH with LUTS, Peyronie's disease, and solitary pulmonary nodule. He presents to the emergency department symptoms as noted above. Admission Exam Per Admitting Provider The patient is awake, alert and oriented 3, well developed and well nourished, normocephalic and atraumatic, lying in bed and in no acute distress, with audible rhonchorous breath sounds HEENT--PERRL, EOMI, mucous membranes and oropharynx normal Neck--supple. No JVD. No bruits. Thyroid normal, trachea midline, no adenopathy. Heart--normal S1 and S2. No murmurs, rubs or gallops. Lungs--coarse breath sounds bilaterally. No respiratory distress, no accessory muscle use. Abdomen--normal bowel sounds and soft. Nontender. Nondistended, no hernias or masses, no organomegaly. Extremities--no cyanosis or clubbing. No edema. There are good distal pulses b/l. Dermatologic--normal skin turgor, normal color, no abnormal lymph nodes, no rash. Neurologic--cranial nerves II through XII grossly intact. Rheumatologic--normal range of motion. Psychiatric--normal affect. Principal Diagnosis Acute on chronic hypoxic respiratory failure due to combination of COPD exac erbation and bilateral pneumonia Sepsis Discharge Exam General: Awake, conversant Heart: S1, S2/regular rate and rhythm, no murmur rubs or gallops Lungs: Diminished breath sounds bilaterally. No wheezing heard. Normal effort Abdomen: Soft/nontender/nondistended. No hepatosplenomegaly Extremities: No clubbing/cyanosis. No edema Behavior: Appropriate, cooperative Discharge Data Allergies Allergy/AdvReac Type Severity Reaction Status Date / Time diltiazem Allergy Intermediate REDNESS Verified 11/17/23 11:09 "MADE ME LOOK LIKE A STRAWBERRY" bee venom protein (honey bee) Allergy Unknown LOCAL Verified 11/17/23 11:09 SWELLING Consultations 12/25/23 20:40 ED Decision to Admit Stat Ordered Studies 12/25/23 18:31 CT for pulmonary embolism PE [CT angio chest PE protocol] Stat 12/28/23 08:00 CT guide rad therapy neck Routine Hospital Course (1) Acute on chronic respiratory failure with hypoxia: (2) Pneumonia: (3) COPD exacerbation: (4) Cancer of lateral margin of anterior two-thirds of tongue: (5) Cancer of ventral surface of tongue: (6) Lung cancer: (7) Dependence on continuous supplemental oxygen: (8) DALIA (obstructive sleep apnea): (9) Periodic limb movement disorder: (10) Enlarged prostate with lower urinary tract symptoms (LUTS): (11) Idiopathic progressive polyneuropathy: (12) H/O deep venous thrombosis: (13) Mobitz I: (14) Cardiomyopathy, nonischemic: Plan Sepsis/acute on chronic respiratory failure with hypoxia/COPD exacerbation/bilateral pneumonia/chronic 2-4 L oxygen dependency/DALIA- Pneumonia treatment with vancomycin, Zosyn and azithromycin initially MRSA swab negative Vancomycin discontinued CTA is negative for PE, shows right upper lobe lobectomy, right lower lobe and lingular infiltrates, and subcentimeter lymph nodes in the mediastinum and jurgen Nasal cannula 2 L oxygen at baseline, With increasing to 4 L with exercise. Titration goal 94% Guaifenesin extended release 1200 mg p.o. twice daily Duonebs every 4 hours while awake and every 2 hours when necessary. Sputum Gram stain and culture Treated with IV Solu-Medrol during this hospital stay. Discharged on p.o. prednisone tapering dose Antibiotics de-escalated. Switch to p.o. Keflex for discharge Discontinue azithromycin. Discharged on home dose of azithromycin every other day Blood cultures negative so far Hypertension/tachycardia/nonischemic cardiomyopathy- Continue aspirin Change metoprolol succinate from 50 mg every morning to 25 mg p.o. twice daily, with hold parameters due to blood pressure and heart rate as noted above Most recent echocardiogram on 04/13/2021, with inability to estimate ejection fraction, but grossly normal LV size and systolic function Echocardiogram reviewed. No changes. EF 60 to 65% with no regional wall motion abnormalities. Mild concentric LVH. BPH with LUTS- Continue tamsulosin Tongue cancer- Status post surgery during hospitalization at [facility] from 11/28-12/01/2023 He went for his simulation scan for radiation therapy on 12/28. Discharge to home today Total Time Total Time Spent Total Time Spent (In Minutes): 35 Discharge Plan Discharge Items Patient Disposition: Home - Self-Care Reason For Visit: ACUTE ON CHRONIC RESP FAILURE W/ HYPOXIA, PNEUMONI Discharge Diagnosis: Acute on chronic hypoxic respiratory failure due to combination of COPD exacerbation and bilateral pneumonia Sepsis Activity: Resume your previous activity Non-emergency contact: Primary Care Provider Call non-emergency contact if: you have any medication questions and your symptoms worsen Follow-up/Referrals: Aggie Mccollum MD [Primary Care Provider] - 01/04/24 3:20 pm Diet: Heart Healthy Addtl Attending Provider Instructions: Advised to follow-up with PCP in 1 week Pending Studies at Discharge: No Stand-Alone Forms: My [facility] Medications and DC Order Prescriptions: New prednisone 10 mg tablet 10 mg PO DAILY Qty: 20 0RF Rx Instructions: 4 tabs for 2 days, then drop by 1 tab every 2 days, then stop cephalexin 500 mg capsule 500 mg PO BID 2 Days Qty: 4 0RF Continued ropinirole 0.5 mg tablet 0.5 mg PO PM Qty: 90 3RF (DME) nebulizers Misc See Rx Instructions .Route Qty: 1 0RF Rx Instructions: please include accessories. betamethasone dipropionate 0.05 % cream 1 applic topical BID PRN (Reason: skin irritation) Qty: 15 3RF azithromycin 250 mg tablet 250 mg PO .COMPLEX Qty: 36 3RF Rx Instructions: 250 mg PO 1 tab p.o. on Lbfxis-Nxbcrauex-[id number]; hydrocodone-acetaminophen 5-325 mg tablet 1 tab PO Q4H PRN (Reason: pain) Qty: 14 0RF metoprolol succinate [Toprol XL] 50 mg tablet extended release 24 hr 50 mg PO QAM Qty: 90 3RF levocetirizine 5 mg tablet 5 mg PO DAILY PRN (Reason: Allergy Symptoms) Qty: 90 3RF Rx Instructions: Take daily for 10 days then PRN atorvastatin 10 mg tablet 10 mg PO HS Qty: 90 3RF ipratropium-albuterol 0.5 mg-3 mg(2.5 mg base)/3 mL solution for nebulization 3 ml INH QID PRN (Reason: shortness of breath or wheezing) Qty: 1080 1RF Rx Instructions: needs new script (DME) Oxygen Home Liters Per Minute See Rx Instructions .Route Rx Instructions: 3L continuous via NC, ok to titrate up to 5L with activity, (09/17/2022) Per patient he is using 2 liters at this time. benzonatate 200 mg capsule 200 mg PO TID PRN (Reason: cough) Qty: 20 4RF triamcinolone acetonide 0.025 % ointment 1 applic topical PRN albuterol sulfate 90 mcg/actuation HFA aerosol inhaler 2 puff INH Q4H PRN (Reason: shortness of breath or wheezing) Qty: 3 1RF (DME) Portable Oxygen Misc See Rx Instructions .MEDSUPPLY Qty: 1 0RF Rx Instructions: Oxygen 4 liters continuous via nasal cannula on exertion with portable concentrator. TERRANCE 99 Trelegy Ellipta 200-62.5-25 mcg blister with device 1 inh inhalation QAM Qty: 3 3RF meclizine 25 mg tablet See Rx Instructions PO TID PRN (Reason: dizziness or vertigo) Qty: 30 1RF Rx Instructions: 1/2 to 1 tab PO TID PRN; cholecalciferol (vitamin D3) 50 mcg (2,000 unit) capsule 50 mcg PO QAM aspirin [Adult Low Dose Aspirin] 81 mg tablet,delayed release (DR/EC) 81 mg PO QPM multivitamin Tablet 1 tab PO QAM guaifenesin [Mucinex] 1,200 mg Tablet Extended Release 12hr 1,200 mg PO BID tamsulosin 0.4 mg capsule 0.4 mg PO QAM Discharge Orders: Discharge Order (Routine); Ordered 12/30/23 Ordered By: Rose Martin Admission Data Admit Date/Time: 12/25/23 21:17 Attending Provider: Rose Martin Admit Provider: Carlos Sabillon Primary Care Provider: Aggie Mccollum Other Providers: Carlos Sabillon
[2023-12-30 10:41] VITALS: PULSE 82; RESP 16; O2SAT 98
[2023-12-30 11:09] VITALS: BP 120/60
== END 2023-12-30 12:18 | disposition home or self-care (01) | DRG 871 ==
LOC: ED 17:36 → 2S 21:17 → SUATTDRO 21:17 → 2S 23:15

== ENCOUNTER 2024-01-21 21:36 | Inpatient (IN) ==
--- NOTE | 2024-01-21 21:56 | Emergency Department Note ---
Impression & Plan Acute on chronic respiratory failure with hypoxia, COPD (chronic obstructive pulmonary disease), Pneumonia ED Provider Note NAME: FIGUEROA ESPINOSA Jr AGE: 68 SEX: M : 1955 ARRIVES VIA: Ambulance INFORMANT: Patient ED PROVIDER(S): Manuel Villa MD CHIEF COMPLAINT: Respiratory distress PLAN: Disposition: Admit MEDICAL DECISION MAKING: The patient is a pleasant 68-year-old gentleman with a past medical history of chronic hypoxic respiratory failure, severe COPD, history of nonischemic cardiomyopathy with last echo in December of this year with normal EF and normal LV and RV size and function though with limited valvular view, history of tongue cancer who presents emerged department via EMS for acute on chronic respiratory failure/respiratory distress which became most severe tonight in the setting of having worsening cough congestion over the past week where he was seen by his outpatient provider and started on azithromycin. The patient was admitted to this facility from 12/24-12/29 for acute on chronic respiratory failure secondary to COPD and pneumonia. Patient was treated with DuoNeb x 2 and 125 mg of Solu-Medrol by EMS. On arrival the patient is a severe respiratory distress with increased work of breathing with diffuse wheezes and rhonchi bilateral lung mcgregor as well as upper airway congestion which she reports he is unable to mobilize. Patient has a temperature of 37.9. Heart rate was in the 140s sinus tachycardia with respiratory rate in the 30s. BP 90s/70s. O2 saturation 90% on his home 4 L nasal cannula. The patient appears euvolemic. He weighs 106.3 kg which is decreased from the patient's recent discharge of 108.7.KG. The patient was placed on BiPAP due to his respiratory failure and that subsequent improvement/stabilization of his work of breathing. Patient was treated with Xopenex. Empiric antibiotics ordered with IV Zosyn and IV doxycycline. Gentle IV fluid hydration provided and patient's blood pressure remained stable in the 90s/50s with MAP > 65. EKG demonstrates sinus tachycardia without overt ST elevation or depression. Chest x-ray demonstrates patchy bibasilar infiltrates as well as patchy right upper lobe infiltrate suspicious for pneumonia per my preliminary independent interpretation. WBC within normal limits without neutrophilia or left shift. H/H approximate 2 prior range of values. Platelets within normal limits. VBG without CO2 retention. Chemistry without metabolic acidosis. Magnesium 1.6 with IV repletion provided. LFTs unremarkable. High-sensitivity troponin 8.4, within normal limits. BNP within normal limits. Procalcitonin is not elevated. UA without evidence of infection. MRSA screen was negative. Respiratory BioFire was negative. Patient and his agree with plan for admission for further management. Case was discussed with MECHELLE Slade hospitalist, who will evaluate the patient for admission. Further management per admitting team. Triage Nursing notes reviewed and agree them. Prior/external medical records reviewed Vital Signs: reviewed Differential diagnosis: Reactive airway disease, pneumonia, pneumothorax, COPD, CHF, infections, cardiac ischemia, pulmonary embolism, musculoskeletal, gastrointestinal, as well as other pathologies. ER treatment provided: See below. Diagnostics interpreted by me: ECG: Sinus tachycardia, 143 BPM, no ectopy, no overt ST elevation or depression, QTc 395 compared 72. Cardiac Monitoring: An order for continuous cardiac monitoring was placed and demonstrated Sinus tachycardia, 143 BPM, no ectopy, Laboratory studies: See below Imaging studies: See below Consultation(s): MECHELLE Slade hospitalist HPI: The patient is a pleasant 68-year-old gentleman with a past medical history of chronic hypoxic respiratory failure, severe COPD, history of nonischemic cardiomyopathy with last echo in December of this year with normal EF and normal LV and RV size and function though with limited valvular view, history of tongue cancer who presents emerged department via EMS for acute on chronic respiratory failure/respiratory distress which became most severe tonight in the setting of having worsening cough congestion over the past week where he was seen by his outpatient provider and started on azithromycin. The patient was admitted to this facility from 12/24-12/29 for acute on chronic respiratory failure secondary to COPD and pneumonia. Patient was treated with DuoNeb x 2 and 125 mg of Solu-Medrol by EMS. ROS: See above HPI for pertinent positives & negatives. A total of 10 systems reviewed and were otherwise negative. VITALS:See Below PHYSICAL EXAMINATION: GENERAL: Awake, alert, ill-appearing, in no distress, BMI 31.8 HENT: Normocephalic, atraumatic. EYES: Normal conjunctiva. Sclera non-icteric. NECK: Supple. No nuchal rigidity. FROM. No JVD. RESPIRATORY: Severe respiratory distress with increased work of breathing with diffuse wheezes and rhonchi bilateral lung mcgregor as well as upper airway congestion which she reports he is unable to mobilize. CARDIAC: Tachycardic rate, normal rhythm. Extremities warm and well perfused. Pulses equal. ABDOMEN: Soft, non-distended. No tenderness to palpation. No rebound or guarding. No masses. MUSCULOSKELETAL: Chest examination reveals no tenderness. The back is symmetrical on inspection without obvious abnormality. There is no CVA tenderness to palpation. No joint edema. LOWER EXTREMITIES: Calves are equal size bilaterally and non-tender. No edema. No discoloration. NEURO: Normal sensorium. No sensory or motor deficits noted. SKIN: No rash or jaundice noted. ED COURSE: Critical Care: I have personally spent greater than 65 minutes of critical care time in the direct management of this patient. This includes bedside care, interpretation of diagnostic studies, and testing, discussion with consultants, patient, and family members, and other required patient management activities. This 65 minutes is in excess of all separately billable procedures. Manuel Villa MD Past Med/Surg History Problem List (Updated 01/22/24 @ 06:24 by Manuel Villa MD) Pneumonia (Acute) COPD (chronic obstructive pulmonary disease) (Acute) Acute on chronic respiratory failure with hypoxia (Acute) Cancer of ventral surface of tongue Cancer of lateral margin of anterior two-thirds of tongue (Chronic 08/18/23) COPD (chronic obstructive pulmonary disease) Elevated cholesterol Pulmonary nodule Neuropathic pain of left foot DALIA (obstructive sleep apnea) Ex-smoker Vitamin D deficiency Hepatitis C antibody positive in blood BPH (benign prostatic hyperplasia) Lucila I pt reports tachycardia>reason for metoprolol Anemia Obesity H/O deep venous thrombosis Periodic limb movement disorder Dependence on continuous supplemental oxygen wears 2-3l nc cont. "will bump up if needed" 2nd degree AV block (Chronic) Cardiomyopathy, nonischemic (Chronic) Chronic deep vein thrombosis of lower extremity (Chronic) Enlarged prostate with lower urinary tract symptoms (LUTS) (Chronic) Hearing difficulty (Chronic) Idiopathic progressive polyneuropathy (Chronic) Lumbar back pain (Chronic) Peyronie's disease (Chronic) Sleep related hypoxia (Chronic) Solitary pulmonary nodule (Chronic) Medical History Dependence on continuous supplemental oxygen wears 1-3l nc cont as needed. "will bump up if needed" Polyneuropathy Periodic limb movement BPH (benign prostatic hyperplasia) History of foot ulcer resolved Elevated cholesterol Hx of Mobitz type I block pt reports tachycardia>reason for metoprolol Hyperlipidemia History of COVID-19 02/2023- hospitalized at [place] Vitamin D deficiency hx 2nd degree AV block follows w/ Dr Holloway DALIA (obstructive sleep apnea) uses 2 lpm HS Pulmonary nodule Arthritis History of anemia History of lung cancer RUL, s/p lobectomy - [facility], 2011>chemo and radiation H/O deep venous thrombosis 2011>when going through chemo (was on coumadin for years) Chronic respiratory failure with hypoxia follows w/ Dr Seo H/O testicular mass benign Restless leg syndrome Stage 4 very severe COPD by GOLD classification Surgical History History of surgery S/P right partial glossectomy;Right neck dissection;Placement of acellular dermal matrix graft on 11/29/23 Dr. Oliver H/O excision of mass right lateral tongue, nasopharyngeal scope, frozen section; 08/18/23 Dr Nawaf Durham History of surgery on lower extremity left (hardware intact) History of lumbar surgery laminectomy History of cystoscopy History of esophagogastroduodenoscopy (EGD) History of colonoscopy History of tooth extraction History of tonsillectomy History of lumbar laminectomy History of lung surgery RUE lobectomy r/t lung cancer Hx of fusion of cervical spine good rom Hx of cholecystectomy (1990) Family History Father Stroke syndrome Gallbladder disease Mother Gallbladder disease Lung disease Hypertension Cardiac disorder Congestive heart failure Brother Myocardial infarction Sister No problems noted. Denies family history of Ovarian cancer Prostate cancer Breast cancer Colorectal cancer Social History Smoking Status: Former smoker Tobacco Type: Cigarettes and Smokeless Tobacco (Dip or Chew) Age Started Using Tobacco: 18; Age Quit Using Tobacco: 56; packs per day: 1.5; Cigarettes Per Day: 20-30 per day; Second Hand Exposure: No; Do You Dip or Chew Tobacco: No; Tobacco Cessation Education Requested by Patient: No Hx Alcohol Use: No Hx Substance Use: No Preferred Language: Vietnamese Communication Ability: Effective Visual Impairment: Limited Hearing Ability: Use of Hearing Aid Golf Tournament Consultant Required: No Beliefs That Will Affect Care: None marital status: Current Living Situation: Spouse Current Living Situation Comment: single story home current occupational status: employed and retired 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, 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 How many Children do You have: 5 Other Information That Helps Us Care for You: No Feels Safe at Home: Yes Safety Concerns: Feels Safe At This Time Childhood Exposure to Second-Hand Smoke: Yes Diet: regular Diet Comment: regular Dental Care, Regularly: No Physical Activity Frequency: Does not Exercise Seatbelt Use: never Sunscreen Use: No Assistive Devices: Oxygen - Continuous Allergies Allergies Allergy/AdvReac Type Severity Reaction Status Date / Time diltiazem Allergy Intermediate REDNESS Verified 01/16/24 13:43 "MADE ME LOOK LIKE A STRAWBERRY" bee venom protein (honey bee) Allergy Unknown LOCAL Verified 01/16/24 13:43 SWELLING Home Meds Home Medications Medication Instructions Recorded Confirmed multivitamin 1 tab PO QAM 02/11/18 01/21/24 aspirin 81 mg tablet,delayed 81 mg PO QPM 06/09/21 01/21/24 release (Adult Low Dose Aspirin) triamcinolone acetonide 0.025 % 1 applic topical PRN 02/08/22 01/21/24 topical ointment guaifenesin 1,200 mg tablet, 1,200 mg PO BID 09/15/22 01/21/24 extended release 12 hr (Mucinex) tamsulosin 0.4 mg capsule 0.4 mg PO QAM 09/15/22 01/21/24 Oxygen Home 09/17/22 01/16/24 cholecalciferol (vitamin D3) 25 25 mcg PO DAILY 01/21/24 01/21/24 mcg (1,000 unit) tablet (Vitamin D3) Previous Rx's Medication Instructions Recorded meclizine 25 mg tablet See Rx Instructions PO TID PRN 01/12/23 dizziness or vertigo #30 tabs ropinirole 0.5 mg tablet 0.5 mg PO PM #90 tabs 02/15/23 benzonatate 200 mg capsule 200 mg PO TID PRN cough #20 caps 03/01/23 nebulizers #1 ea 04/15/23 betamethasone dipropionate 0.05 % 1 applic topical BID PRN skin 04/21/23 topical cream irritation #15 grams azithromycin 250 mg tablet 250 mg PO .COMPLEX #36 tabs 06/08/23 Portable Oxygen #1 ea 06/21/23 albuterol sulfate 90 mcg/actuation 2 puff inhalation Q4H PRN 06/21/23 aerosol inhaler shortness of breath or wheezing #3 Inhalers fluticasone fur. 200 mcg-umeclid 1 inh inhalation QAM #3 Inhalers 06/21/23 62.5 mcg-vilant 25 mcg inhalat.powder (Trelegy Ellipta) atorvastatin 10 mg tablet 10 mg PO HS #90 tabs 09/02/23 levocetirizine 5 mg tablet 5 mg PO DAILY PRN Allergy Symptoms 09/02/23 #90 tabs metoprolol succinate 50 mg 50 mg PO QAM #90 tabs 09/02/23 tablet,extended release 24 hr (Toprol XL) ipratropium 0.5 mg-albuterol 3 mg 3 ml inhalation QID PRN shortness 12/28/23 (2.5 mg base)/3 mL nebulization of breath or wheezing #1,080 vials soln Saccharomyces boulardii 250 mg 250 mg PO BID #60 caps 01/02/24 capsule (Florastor) lorazepam 0.5 mg tablet 0.5 mg buccal DAILY anxiety #30 01/16/24 tabs prednisone 10 mg tablet See Rx Instructions PO DAILY #30 01/16/24 tabs nystatin 100,000 unit/mL oral 4 ml PO QID 10 days #160 mL 01/21/24 suspension Results & Data (ED) Vital Signs Vital Signs - 24 hr 01/21/24 21:43 01/21/24 21:45 01/21/24 21:51 Temperature 37.9 C H Temperature Source Oral Pulse Rate 146 H 146 H 140 H Respiratory Rate 33 H 34 H Respiratory Effort / Characteristics Short of Breath Respiratory Depth Respiratory Pattern Blood Pressure Blood Pressure [Right Arm] Blood Pressure Mean Blood Pressure Mean [Right Arm] Pulse Oximetry 92 92 Oxygen Delivery Method Nasal Cannula Nasal Cannula Oxygen Flow Rate 4 5 Fraction of Inspired Oxygen Sepsis Recent Fever Within 48 Hours Yes Sepsis New/Unexplained Change in Mental Status No Sepsis Action Taken by Nursing Physician Notified 01/21/24 22:00 01/21/24 22:02 01/21/24 22:30 Temperature Temperature Source Pulse Rate 138 H 136 H 130 H Respiratory Rate 25 H 27 H 32 H Respiratory Effort / Characteristics Spontaneous Labored Respiratory Depth Normal Respiratory Pattern Regular Blood Pressure 85/57 L 80/59 L Blood Pressure [Right Arm] Blood Pressure Mean 66 66 Blood Pressure Mean [Right Arm] Pulse Oximetry 95 96 95 Oxygen Delivery Method BiPAP BiPAP Oxygen Flow Rate Fraction of Inspired Oxygen 50 Sepsis Recent Fever Within 48 Hours Sepsis New/Unexplained Change in Mental Status Sepsis Action Taken by Nursing 01/21/24 22:45 01/21/24 22:51 01/21/24 22:51 Temperature Temperature Source Pulse Rate 124 H 121 H Respiratory Rate 26 H 27 H Respiratory Effort / Characteristics Respiratory Depth Respiratory Pattern Blood Pressure 82/53 L 97/64 L Blood Pressure [Right Arm] 97/64 L Blood Pressure Mean 62 75 Blood Pressure Mean [Right Arm] 75 Pulse Oximetry 96 97 Oxygen Delivery Method BiPAP BiPAP Oxygen Flow Rate Fraction of Inspired Oxygen Sepsis Recent Fever Within 48 Hours Sepsis New/Unexplained Change in Mental Status Sepsis Action Taken by Nursing 01/21/24 23:00 01/21/24 23:08 Temperature 36.8 C Temperature Source Oral Pulse Rate 118 H Respiratory Rate 25 H Respiratory Effort / Characteristics Respiratory Depth Respiratory Pattern Blood Pressure 93/58 L Blood Pressure [Right Arm] Blood Pressure Mean 69 Blood Pressure Mean [Right Arm] Pulse Oximetry 95 Oxygen Delivery Method BiPAP Oxygen Flow Rate Fraction of Inspired Oxygen Sepsis Recent Fever Within 48 Hours Sepsis New/Unexplained Change in Mental Status Sepsis Action Taken by Nursing Laboratory Data Attestation: I reviewed the patient's lab results. 01/22/24 04:17 01/22/24 04:17 Lab Results 01/21/24 01/21/24 01/21/24 Range/Units 21:44 21:50 21:59 WBC 5.47 (4.8-10.8) K/ul RBC 4.31 L (4.70-6.10) M/uL Hgb 12.6 L (14.0-18.0) g/dl POC Hgb 12.9 L (14.0-18.0) g/dl Hct 37.2 L (42.0-52.0) % POC Hct 38 L (42-52) % MCV 86.3 (80.0-100.0) fL MCH 29.2 (25.0-34.0) pg MCHC 33.9 (32.0-36.0) g/dL RDW Std Deviation 40.8 (36.4-46.3) fL RDW Coeff of Dinesh 12.9 (11.5-14.5) % Plt Count 192 (130-400) K/uL MPV 10.0 (9.4-12.4) fL Immature Gran % (Auto) 0.7 % Neut % (Auto) 71.1 % Lymph % (Auto) 17.2 % Caswell % (Auto) 10.4 % Eos % (Auto) 0.4 % Baso % (Auto) 0.2 % Neut # (Auto) 3.89 (1.40-6.50) K/uL Lymph # (Auto) 0.94 L (1.20-3.40) K/uL Caswell # (Auto) 0.57 (0.11-0.59) K/uL Eos # (Auto) 0.02 (0.00-0.50) K/uL Baso # (Auto) 0.01 (0.00-0.20) K/uL Immature Gran # (Auto) 0.04 (0.01-0.20) K/uL PT 11.4 (9.0-12.0) Seconds INR 1.1 (0.9-1.1) VBG pH 7.46 H (7.36-7.41) VBG pCO2 41 (38-50) mmHg VBG pO2 53 mmHg VBG HCO3 29 mmol/L VBG O2 Saturation 88.0 % VBG Base Excess 4.9 mEq/L POC Sodium 135 (135-144) mmol/L Sodium 135 L (136-145) mmol/L POC Potassium 3.9 (3.3-5.0) mmol/L Potassium 3.9 (3.5-5.1) mmol/L POC Chloride 98 L (101-112) mmol/L Chloride 98 (98-107) mmol/L Carbon Dioxide 28 (21-32) mmol/L POC Total CO2 24 (24-31) mmol/L Anion Gap 9 (3-11) POC Anion Gap 18.0 (16-25) mmol/L POC BUN 19 H (7-18) mg/dl BUN 20 (6-23) mg/dl Creatinine 1.32 (0.6-1.4) mg/dl POC Creatinine 1.4 H (0.6-1.3) mg/dl Est Cr Clr Drug Dosing 67.5 ml/min eGFR 58.75 BUN/Creatinine Ratio 15.2 (10-20) Glucose 148 H (70-99(Fasting)) mg/dl POC Glucose (other) 150 H (70-99) mg/dl Lactate 1.6 (0.4-2.0) mmol/L Calcium 9.2 (8.6-10.3) mg/dl POC Ioniz Calcium Nicholas 1.16 (1.12-1.32) mmol/l Magnesium 1.6 L (1.7-2.4) mg/dl Total Bilirubin 1.0 (0.2-1.0) mg/dl Direct Bilirubin 0.2 (0-0.2) mg/dl AST 12 L (13-39) U/L ALT 13 (7-52) U/L Alkaline Phosphatase 70 (34-104) U/L Troponin I High Sens 8.4 (0-20) pg/ml B-Natriuretic Peptide 36 (0-100) pg/ml Total Protein 6.5 (6.0-8.3) gm/dl Albumin 3.6 (3.4-5.0) gm/dl Procalcitonin 0.16 (0-0.5) ng/ml Nasal Screen MRSA (PCR) (Negative) Adenovirus (PCR) (NotDetected) B. pertussis DNA (PCR) (NotDetected) B.parapertussis DNA PCR (NotDetected) C. pneumoniae DNA (PCR) (NotDetected) Coronavirus OC43 (PCR) (NotDetected) Coronavirus HKU1 (PCR) (NotDetected) Coronavirus 229E (PCR) (NotDetected) SARS-CoV-2 (PCR) (NotDetected) Coronavirus NL63 (PCR) (NotDetected) Human Metapneumovir PCR (NotDetected) Influenza Type A (PCR) (NotDetected) Influenza Type B (PCR) (NotDetected) M. pneumoniae (PCR) (NotDetected) Parainfluenza 1 (PCR) (NotDetected) Parainfluenza 2 (PCR) (NotDetected) Parainfluenza 3 (PCR) (NotDetected) Parainfluenza 4 (PCR) (NotDetected) RSV (PCR) (NotDetected) Entero/Rhino (PCR) (NotDetected) 01/21/24 Range/Units 22:07 WBC (4.8-10.8) K/ul RBC (4.70-6.10) M/uL Hgb (14.0-18.0) g/dl POC Hgb (14.0-18.0) g/dl Hct (42.0-52.0) % POC Hct (42-52) % MCV (80.0-100.0) fL MCH (25.0-34.0) pg MCHC (32.0-36.0) g/dL RDW Std Deviation (36.4-46.3) fL RDW Coeff of Dinesh (11.5-14.5) % Plt Count (130-400) K/uL MPV (9.4-12.4) fL Immature Gran % (Auto) % Neut % (Auto) % Lymph % (Auto) % Caswell % (Auto) % Eos % (Auto) % Baso % (Auto) % Neut # (Auto) (1.40-6.50) K/uL Lymph # (Auto) (1.20-3.40) K/uL Caswell # (Auto) (0.11-0.59) K/uL Eos # (Auto) (0.00-0.50) K/uL Baso # (Auto) (0.00-0.20) K/uL Immature Gran # (Auto) (0.01-0.20) K/uL PT (9.0-12.0) Seconds INR (0.9-1.1) VBG pH (7.36-7.41) VBG pCO2 (38-50) mmHg VBG pO2 mmHg VBG HCO3 mmol/L VBG O2 Saturation % VBG Base Excess mEq/L POC Sodium (135-144) mmol/L Sodium (136-145) mmol/L POC Potassium (3.3-5.0) mmol/L Potassium (3.5-5.1) mmol/L POC Chloride (101-112) mmol/L Chloride (98-107) mmol/L Carbon Dioxide (21-32) mmol/L POC Total CO2 (24-31) mmol/L Anion Gap (3-11) POC Anion Gap (16-25) mmol/L POC BUN (7-18) mg/dl BUN (6-23) mg/dl Creatinine (0.6-1.4) mg/dl POC Creatinine (0.6-1.3) mg/dl Est Cr Clr Drug Dosing ml/min eGFR BUN/Creatinine Ratio (10-20) Glucose (70-99(Fasting)) mg/dl POC Glucose (other) (70-99) mg/dl Lactate (0.4-2.0) mmol/L Calcium (8.6-10.3) mg/dl POC Ioniz Calcium Nicholas (1.12-1.32) mmol/l Magnesium (1.7-2.4) mg/dl Total Bilirubin (0.2-1.0) mg/dl Direct Bilirubin (0-0.2) mg/dl AST (13-39) U/L ALT (7-52) U/L Alkaline Phosphatase (34-104) U/L Troponin I High Sens (0-20) pg/ml B-Natriuretic Peptide (0-100) pg/ml Total Protein (6.0-8.3) gm/dl Albumin (3.4-5.0) gm/dl Procalcitonin (0-0.5) ng/ml Nasal Screen MRSA (PCR) Negative (Negative) Adenovirus (PCR) Not Detected (NotDetected) B. pertussis DNA (PCR) Not Detected (NotDetected) B.parapertussis DNA PCR Not Detected (NotDetected) C. pneumoniae DNA (PCR) Not Detected (NotDetected) Coronavirus OC43 (PCR) Not Detected (NotDetected) Coronavirus HKU1 (PCR) Not Detected (NotDetected) Coronavirus 229E (PCR) Not Detected (NotDetected) SARS-CoV-2 (PCR) Not Detected (NotDetected) Coronavirus NL63 (PCR) Not Detected (NotDetected) Human Metapneumovir PCR Not Detected (NotDetected) Influenza Type A (PCR) Not Detected (NotDetected) Influenza Type B (PCR) Not Detected (NotDetected) M. pneumoniae (PCR) Not Detected (NotDetected) Parainfluenza 1 (PCR) Not Detected (NotDetected) Parainfluenza 2 (PCR) Not Detected (NotDetected) Parainfluenza 3 (PCR) Not Detected (NotDetected) Parainfluenza 4 (PCR) Not Detected (NotDetected) RSV (PCR) Not Detected (NotDetected) Entero/Rhino (PCR) Not Detected (NotDetected) Administered Medications Albuterol (Albut/Ipratrop 3mg/0.5mg Neb 3 Ml Vial) 3 ml NEB Q4R DELILAH; Protocol Stop: 02/21/24 02:59 Last Admin: 01/22/24 02:12 Dose: 3 ml Documented By: GILMA Piperacillin Sod/Tazobactam Sod (Zosyn) 4.5 gm in 100 mls @ 25 mls/hr IV Q8H DELILAH; Protocol Stop: 01/27/24 03:59 Last Admin: 01/22/24 04:13 Dose: 25 mls/hr Documented By: KELVIN Methylprednisolone 40 mg/ (Syringe) 0.64 mls @ 1.5 mls/min IV Q8H DELILAH Stop: 02/21/24 05:59 Last Admin: 01/22/24 05:03 Dose: 1.5 mls/min Documented By: KELVIN Discontinued Medications Piperacillin Sod/Tazobactam Sod (Zosyn) 4.5 gm in 100 mls @ 200 mls/hr IV NOW ONE; Protocol Stop: 01/21/24 22:28 Last Infusion: 01/21/24 23:07 Dose: Infused Documented By: Admin: 01/21/24 22:29 Dose: 200 mls/hr Documented By: BELA Doxycycline Hyclate 100 mg/ (Dextrose) 100 mls @ 50 mls/hr IV NOW STA Stop: 01/21/24 23:58 Last Infusion: 01/22/24 00:38 Dose: Infused Documented By: Admin: 01/21/24 22:30 Dose: 50 mls/hr Documented By: BELA Acetaminophen (Ofirmev) 1,000 mg in 100 mls @ 400 mls/hr IV NOW STA Stop: 01/21/24 22:19 Last Admin: 01/21/24 22:39 Dose: Not Given Documented By: BELA Sodium Chloride (Nss) 500 mls @ 999 mls/hr IV .Q31M ONE Stop: 01/21/24 22:52 Last Infusion: 01/21/24 23:06 Dose: Infused Documented By: Admin: 01/21/24 22:26 Dose: 999 mls/hr Documented By: BELA Magnesium Sulfate/Dextrose (Magnesium Sulfate / D5w) 1 gm in 100 mls @ 100 mls/hr IV NOW STA Stop: 01/21/24 23:46 Last Infusion: 01/22/24 00:38 Dose: Infused Documented By: Admin: 01/21/24 23:02 Dose: 100 mls/hr Documented By: GIOVANNI Magnesium Sulfate/Dextrose (Magnesium Sulfate / D5w) 1 gm in 100 mls @ 50 mls/hr IV ONE ONE Stop: 01/22/24 03:20 Last Infusion: 01/22/24 04:37 Dose: Infused Documented By: Admin: 01/22/24 02:04 Dose: 50 mls/hr Documented By: KELVIN Levalbuterol HCl (Levalbuterol 1.25 Mg/3 Ml Neb) 1.25 mg NEB NOW STA Stop: 01/21/24 21:52 Last Admin: 01/21/24 22:00 Dose: 1.25 mg Documented By: BLEA Imaging Data Radiologist's Impression: Chest X-Ray 01/21/24 21:50 Exam(s): XR CXR 1 VIEW EXAM: XR Chest, 1 View CLINICAL HISTORY: Reason for exam: Sepsis. TECHNIQUE: Frontal view of the chest. COMPARISON: 01/16/2024 FINDINGS: Lungs: There is mild asymmetric chronic volume loss of the right lung. There has been interval development of patchy airspace consolidation in the right upper lobe and bilateral lung bases. There is a small right basilar pleural effusion. Pleural space: No pneumothorax. Heart: Unremarkable. No cardiomegaly. Mediastinum: The cardiomediastinal silhouette is stable. Bones/joints: Unremarkable. No acute fracture. IMPRESSION: Interval development of patchy right upper lobe and bilateral basilar patchy airspace consolidation suspicious for pneumonia. There is a small right basilar pleural effusion. Electronically signed by: Mike Vargas MD 01/22/24 02:31 AM Discharge Plan Visit Data Chief Complaint: Respiratory Distress Stated Complaint: Cough, SOB ED Provider: Manuel Villa Discharge Problem: Acute on chronic respiratory failure with hypoxia, COPD (chronic obstructive pulmonary disease), Pneumonia Patient Disposition: Admitted As Inpatient Discharge Instructions Interventions: ED Discharge Assessment Last Done: 01/22/24 00:37 Discharge Problem: COPD (chronic obstructive pulmonary disease) Qualifiers: COPD type: COPD with acute lower respiratory infection Qualified Code(s): J44.0 - Chronic obstructive pulmonary disease with (acute) lower respiratory infection Pneumonia Qualifiers: Pneumonia type: due to unspecified organism Laterality: bilateral Lung location: lower lobe of lung Qualified Code(s): J18.9 - Pneumonia, unspecified organism
[2024-01-21 21:59] LABS: Base Excess VBG 4.9 mEq/L; HCO3 VBG 29 mmol/L; PCO2 VBG 41 mmHg (38-50); PO2 VBG 53 mmHg; pH VBG 7.46 (7.36-7.41)
[2024-01-21] MEDS: LEVALBUTEROL 1.25 MG/3 ML NEB NEB STA (22:00)
[2024-01-21 22:02] LABS: iSTAT Creatinine 1.4 mg/dl (0.6-1.3); iSTAT Hemoglobin 12.9 g/dl (14.0-18.0); iSTAT Ionized Calcium 1.16 mmol/l (1.12-1.32); iSTAT Potassium 3.9 mmol/L (3.3-5.0)
[2024-01-21 22:11] LABS: Basophils # (auto) 0.01 K/uL (0.00-0.20); Basophils % (auto) 0.2 %; Eosinophils # (auto) 0.02 K/uL (0.00-0.50); Eosinophils % (auto) 0.4 %; Hematocrit (blood only) 37.2 % (42.0-52.0); Hemoglobin 12.6 g/dl (14.0-18.0); Immature Granulocytes # (auto) 0.04 K/uL (0.01-0.20); Immature Granulocytes % (auto) 0.7 %; Lymphocytes # (auto) 0.94 K/uL (1.20-3.40); Lymphocytes % (auto) 17.2 %; Mean Corpuscular Hemoglobin 29.2 pg (25.0-34.0); Mean Corpuscular Hgb Conc 33.9 g/dL (32.0-36.0); Mean Corpuscular Volume 86.3 fL (80.0-100.0); Monocytes # (auto) 0.57 K/uL (0.11-0.59); Monocytes % (auto) 10.4 %; Neutrophils # (auto) 3.89 K/uL (1.40-6.50); Neutrophils % (auto) 71.1 %; Platelet Count 192 K/uL (130-400); RDW Coefficient of Variation 12.9 % (11.5-14.5); RDW Standard Deviation 40.8 fL (36.4-46.3); Red Blood Count 4.31 M/uL (4.70-6.10); White Blood Count 5.47 K/ul (4.8-10.8)
[2024-01-21 22:22] LABS: Albumin Level 3.6 gm/dl (3.4-5.0); BUN Creatinine Ratio 15.2 (10-20); Bilirubin Direct 0.2 mg/dl (0-0.2); Calcium 9.2 mg/dl (8.6-10.3); Creatinine Clr Calc Pharmacy 67.5 ml/min; Magnesium 1.6 mg/dl (1.7-2.4); Potassium 3.9 mmol/L (3.5-5.1); Total Protein 6.5 gm/dl (6.0-8.3)
[2024-01-21] MEDS: SODIUM CHLORIDE 0.9% 500 ML IV ONE (22:26)
[2024-01-21 22:28] LABS: Troponin I High Sensitivity 8.4 pg/ml (0-20)
[2024-01-21] MEDS: PIPERACILLIN/TAZOBACTAM 4.5 GM/100 ML BAG IV ONE (22:29)
[2024-01-21] MEDS: DOXYCYCLINE HYCLATE 100 MG in DEXTROSE 5% MINI-B 100 ML IV STA (22:30)
[2024-01-21] MEDS: ACETAMINOPHEN 1,000 MG/100 ML VIAL IV STA (22:39)
[2024-01-21 22:42] LABS: INR 1.1 (0.9-1.1); Prothrombin Time 11.4 Seconds (9.0-12.0)
[2024-01-21] MEDS: MAGNESIUM SULFATE / D5W 1 GM/100 ML BAG IV STA (23:02)
[2024-01-21 23:19] LABS: Adenovirus PCR Not Detected (NotDetected); Bordetella parapertussis PCR Not Detected (NotDetected); Bordetella pertussis PCR Not Detected (NotDetected); Chlamydia pneumoniae PCR Not Detected (NotDetected); Coronavirus 229E PCR Not Detected (NotDetected); Coronavirus CoV-2 (COVID19)PCR Not Detected (NotDetected); Coronavirus HKU1 PCR Not Detected (NotDetected); Coronavirus NL63 PCR Not Detected (NotDetected); Coronavirus OC43PCR Not Detected (NotDetected); Human Metapneumovirus PCR Not Detected (NotDetected); Influenza A PCR Not Detected (NotDetected); Influenza B PCR Not Detected (NotDetected); Mycoplasma pneumoniae PCR Not Detected (NotDetected); Parainfluenza Virus 1 PCR Not Detected (NotDetected); Parainfluenza Virus 2 PCR Not Detected (NotDetected); Parainfluenza Virus 3 PCR Not Detected (NotDetected); Parainfluenza Virus 4 PCR Not Detected (NotDetected); Respiratory Syncytial VirusPCR Not Detected (NotDetected); Rhinovirus/Enterovirus PCR Not Detected (NotDetected)
--- NOTE | 2024-01-21 23:43 | History & Physical Report ---
Date of Service January 21, 2024 Assessment & Plan (1) Acute on chronic respiratory failure with hypoxia: Plan: Rodney Payan is a 68yo male with COPD on home O2 presenting with acute on chronic respiratory failure with hypoxia. Patient endorses cough, wheeze and SOB as well as fever. Improved with DuoNebs, Solumedrol. BiPAP in place currently. -Admit to PCU -Continue BiPAP - wean as tolerated -Continue Solumedrol 40mg IV TID -DuoNeb q 4 hours scheduled -Xopenex q 4 hours PRN -Flutter Valve -Mucinex BID -Humidify oxygen -Tessalon PRN (2) Pneumonia: Plan: Possible developing pneumonia. Patient endorses fever over the last two days. No obvious infiltrates on CXR. No leukocytosis. Procalcitonin is WNL at 0.16. MRSA nares is NEG as is respiratory biofire panel. -Follow cultures sent from ER -Will treat with antibiotics - Doxycycline + Zosyn. If patient remains stable would DC after 48 hours (3) Cancer of ventral surface of tongue: Plan: Patient with cancer of ventral surface of the tongue. He is currently receiving XRT 5 days/week -Will need to contact Cancer Center if patient is still in the hospital for treatment on Tuesday -Nystatin for thrush (4) COPD (chronic obstructive pulmonary disease): Plan: As above, likely cause for patient's acute on chronic respiratory failure -Solumedrol -DuoNebs + Xopenex -Pulmonary toilet -Antibiotics for now pending cultures and clinical improvement Plan Restless legs -Continue Ropinirole 0.5mg po qPM BPH -Continue Flomax 0.4mg po q AM HLP -Continue Atorvastatin F/E/N - Saline lock. 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 Patient was admitted to [facility] 12/24 - 12/30/23 with pneumonia, sepsis and COPD. He was treated inpatient and ultimately discharged home with Prednisone and Keflex. He was seen by his PCP on 01/16/24 with complaint of several days of worsening shortness of breath. He was noted to have diffuse wheezing and rhonchi on exam. CXR was performed which did not reveal volume overload or pneumonia. He was prescribed Prednisone taper and Azithromycin. Patient reports progressive shortness of breath as well as dry cough and wheeze. He has been taking his Trelegy at home until recently when he developed thrush. He has been taking DuoNebs q 4-5 hours at home with no relief. He has had fever for the last two days as well. Otherwise denies chest pain, palpitations, dizziness, edema, orthopnea, nausea, vomiting ER Course: Patient received DuoNebs x 2 and Solumedrol 125mg IV by EMS Xopenex NSS x 500mL Zosyn 4.5gm Doxy 100mg IV Magnesium 1gm Allergies Allergy/AdvReac Type Severity Reaction Status Date / Time diltiazem Allergy Intermediate REDNESS Verified 01/16/24 13:43 "MADE ME LOOK LIKE A STRAWBERRY" bee venom protein (honey bee) Allergy Unknown LOCAL Verified 01/16/24 13:43 SWELLING Home Medications Medication Instructions Recorded Confirmed Type multivitamin 1 tab PO QAM 02/11/18 01/21/24 History aspirin 81 mg tablet,delayed 81 mg PO QPM 06/09/21 01/21/24 History release (Adult Low Dose Aspirin) triamcinolone acetonide 0.025 % 1 applic topical PRN 02/08/22 01/21/24 History topical ointment guaifenesin 1,200 mg tablet, 1,200 mg PO BID 09/15/22 01/21/24 History extended release 12 hr (Mucinex) tamsulosin 0.4 mg capsule 0.4 mg PO QAM 09/15/22 01/21/24 History Oxygen Home 09/17/22 01/16/24 History meclizine 25 mg tablet See Rx Instructions PO TID PRN 01/12/23 01/16/24 Rx dizziness or vertigo #30 tabs ropinirole 0.5 mg tablet 0.5 mg PO PM #90 tabs 02/15/23 01/21/24 Rx benzonatate 200 mg capsule 200 mg PO TID PRN cough #20 caps 03/01/23 01/21/24 Rx nebulizers #1 ea 04/15/23 01/16/24 Rx betamethasone dipropionate 0.05 % 1 applic topical BID PRN skin 04/21/23 01/16/24 Rx topical cream irritation #15 grams azithromycin 250 mg tablet 250 mg PO .COMPLEX #36 tabs 06/08/23 01/21/24 Rx Portable Oxygen #1 ea 06/21/23 01/16/24 Rx albuterol sulfate 90 mcg/actuation 2 puff inhalation Q4H PRN 06/21/23 01/21/24 Rx aerosol inhaler shortness of breath or wheezing #3 Inhalers fluticasone fur. 200 mcg-umeclid 1 inh inhalation QAM #3 Inhalers 06/21/23 01/21/24 Rx 62.5 mcg-vilant 25 mcg inhalat.powder (Trelegy Ellipta) atorvastatin 10 mg tablet 10 mg PO HS #90 tabs 09/02/23 01/21/24 Rx levocetirizine 5 mg tablet 5 mg PO DAILY PRN Allergy Symptoms 09/02/23 01/21/24 Rx #90 tabs metoprolol succinate 50 mg 50 mg PO QAM #90 tabs 09/02/23 01/21/24 Rx tablet,extended release 24 hr (Toprol XL) ipratropium 0.5 mg-albuterol 3 mg 3 ml inhalation QID PRN shortness 12/28/23 01/16/24 Rx (2.5 mg base)/3 mL nebulization of breath or wheezing #1,080 vials soln Saccharomyces boulardii 250 mg 250 mg PO BID #60 caps 01/02/24 01/21/24 Rx capsule (Florastor) lorazepam 0.5 mg tablet 0.5 mg buccal DAILY anxiety #30 01/16/24 01/21/24 Rx tabs prednisone 10 mg tablet See Rx Instructions PO DAILY #30 01/16/24 01/21/24 Rx tabs cholecalciferol (vitamin D3) 25 25 mcg PO DAILY 01/21/24 01/21/24 History mcg (1,000 unit) tablet (Vitamin D3) nystatin 100,000 unit/mL oral 4 ml PO QID 10 days #160 mL 11/16/24 11/16/24 Rx suspension Past Med/Surg History Problem List Acute on chronic respiratory failure with hypoxia (Acute) Cancer of ventral surface of tongue Cancer of lateral margin of anterior two-thirds of tongue (Chronic 08/18/23) COPD (chronic obstructive pulmonary disease) Elevated cholesterol Pulmonary nodule Neuropathic pain of left foot DALIA (obstructive sleep apnea) Ex-smoker Vitamin D deficiency Hepatitis C antibody positive in blood BPH (benign prostatic hyperplasia) Mobitz I pt reports tachycardia>reason for metoprolol Anemia Obesity H/O deep venous thrombosis Periodic limb movement disorder Dependence on continuous supplemental oxygen wears 2-3l nc cont. "will bump up if needed" 2nd degree AV block (Chronic) Cardiomyopathy, nonischemic (Chronic) Chronic deep vein thrombosis of lower extremity (Chronic) Enlarged prostate with lower urinary tract symptoms (LUTS) (Chronic) Hearing difficulty (Chronic) Idiopathic progressive polyneuropathy (Chronic) Lumbar back pain (Chronic) Peyronie's disease (Chronic) Sleep related hypoxia (Chronic) Solitary pulmonary nodule (Chronic) Medical History Dependence on continuous supplemental oxygen wears 1-3l nc cont as needed. "will bump up if needed" Polyneuropathy Periodic limb movement BPH (benign prostatic hyperplasia) History of foot ulcer resolved Elevated cholesterol Hx of Mobitz type I block pt reports tachycardia>reason for metoprolol Hyperlipidemia History of COVID-19 02/2023- hospitalized at [place] Vitamin D deficiency hx 2nd degree AV block follows w/ Dr Holloway DALIA (obstructive sleep apnea) uses 2 lpm HS Pulmonary nodule Arthritis History of anemia History of lung cancer RUL, s/p lobectomy - [facility], 2011>chemo and radiation H/O deep venous thrombosis 2011>when going through chemo (was on coumadin for years) Chronic respiratory failure with hypoxia follows w/ Dr Seo H/O testicular mass benign Restless leg syndrome Stage 4 very severe COPD by GOLD classification Surgical History History of surgery S/P right partial glossectomy;Right neck dissection;Placement of acellular dermal matrix graft on 11/29/23 Dr. Oliver H/O excision of mass right lateral tongue, nasopharyngeal scope, frozen section; 08/18/23 Dr Nawaf [place] History of surgery on lower extremity left (hardware intact) History of lumbar surgery laminectomy History of cystoscopy History of esophagogastroduodenoscopy (EGD) History of colonoscopy History of tooth extraction History of tonsillectomy History of lumbar laminectomy History of lung surgery RUE lobectomy r/t lung cancer Hx of fusion of cervical spine good rom Hx of cholecystectomy (1990) Family History Father Stroke syndrome Gallbladder disease Mother Gallbladder disease Lung disease Hypertension Cardiac disorder Congestive heart failure Brother Myocardial infarction Sister No problems noted. Denies family history of Ovarian cancer Prostate cancer Breast cancer Colorectal cancer Social History Smoking Status: Former smoker Tobacco Type: Cigarettes Age Started Using Tobacco: 18; Age Quit Using Tobacco: 56; packs per day: 1.5; Cigarettes Per Day: 20-30 per day; Second Hand Exposure: Yes (hx); Do You Dip or Chew Tobacco: No; Hx Alcohol Use: No Hx Substance Use: No Preferred Language: Italian Communication Ability: Effective Visual Impairment: Limited Hearing Ability: Use of Hearing Aid Mailing Specialist Required: No Beliefs That Will Affect Care: None marital status: Current Living Situation: Spouse Current Living Situation Comment: single story home current occupational status: employed and retired 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, 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 How many Children do You have: 5 Feels Safe at Home: Yes Childhood Exposure to Second-Hand Smoke: Yes Diet: regular Diet Comment: regular Dental Care, Regularly: No Physical Activity Frequency: Does not Exercise Seatbelt Use: never Sunscreen Use: No Assistive Devices: Cane, Crutches, Oxygen - Continuous, Walker and Wheelchair Review of Systems Review of Systems: All systems reviewed & are unremarkable except as noted in HPI & below Physical Exam Physical Exam: General: patient resting comfortably, NAD, non-toxic in appearance, AA&O x 4, BiPAP in place 10/5 40% FiO2 Skin: warm, dry, intact, no rashes or lesions HEENT: NC/AT, PERRL, EOMI, anicteric sclera, conjunctiva without injection, external ear normal to inspection and nontender, nares patent, moist mucus m embranes, dentition intact, no oropharyngeal lesions, neck supple, trachea midline, no LAD, no thyromegaly, no JVD Heart: +S1/S2, regular, tachycardic, no m/r/g Lungs: diminished Abd: +BS, soft, NT/ND, no masses/organomegaly/ascites Ext: warm, 2+ pulses in UE/LE bilaterally, no clubbing/cyanosis or edema Neuro: nonfocal, patient AA&O x 4, speech intact, no facial droop, moving all extremities on command with equal strength 5/5 Results & Data Results & Data Vital Signs (Past 12 Hours) Vital Signs Temp Pulse Resp BP BP Pulse Ox O2 Del Method 01/21/24 23:08 36.8 C 01/21/24 23:00 118 H 25 H 93/58 L 95 BiPAP 01/21/24 22:51 121 H 27 H 97/64 L 97 BiPAP 01/21/24 22:51 97/64 L 01/21/24 22:45 124 H 26 H 82/53 L 96 BiPAP 01/21/24 22:30 130 H 32 H 80/59 L 95 BiPAP 01/21/24 22:02 136 H 27 H 96 01/21/24 22:00 138 H 25 H 85/57 L 95 BiPAP 01/21/24 21:51 140 H 34 H 92 Nasal Cannula 01/21/24 21:45 37.9 C H 146 H 33 H 92 Nasal Cannula 01/21/24 21:43 146 H O2 Flow Rate FiO2 01/21/24 23:08 01/21/24 23:00 01/21/24 22:51 01/21/24 22:51 01/21/24 22:45 01/21/24 22:30 01/21/24 22:02 50 01/21/24 22:00 01/21/24 21:51 5 01/21/24 21:45 4 01/21/24 21:43 Laboratory Results Laboratory Results WBC 5.47 K/ul (4.8-10.8) 01/21/24 21:44 RBC 4.31 M/uL (4.70-6.10) L 01/21/24 21:44 Hgb 12.6 g/dl (14.0-18.0) L 01/21/24 21:44 POC Hgb 12.9 g/dl (14.0-18.0) L 01/21/24 21:50 Hct 37.2 % (42.0-52.0) L 01/21/24 21:44 POC Hct 38 % (42-52) L 01/21/24 21:50 MCV 86.3 fL (80.0-100.0) 01/21/24 21:44 MCH 29.2 pg (25.0-34.0) 01/21/24 21:44 MCHC 33.9 g/dL (32.0-36.0) 01/21/24 21:44 RDW Std Deviation 40.8 fL (36.4-46.3) 01/21/24:44 RDW Coeff of Dinesh 12.9 % (11.5-14.5) 01/21/24 21:44 Plt Count 192 K/uL (130-400) 01/21/24 21:44 MPV 10.0 fL (9.4-12.4) 01/21/24 21:44 Immature Gran % (Auto) 0.7 % 01/21/24 21:44 Neut % (Auto) 71.1 % 01/21/24 21:44 Lymph % (Auto) 17.2 % 01/21/24 21:44 [place] % (Auto) 10.4 % 01/21/24 21:44 Eos % (Auto) 0.4 % 01/21/24:44 Baso % (Auto) 0.2 % 01/21/24:44 Neut # (Auto) 3.89 K/uL (1.40-6.50) 01/21/24:44 Lymph # (Auto) 0.94 K/uL (1.20-3.40) L 01/21/24 21:44 [place] # (Auto) 0.57 K/uL (0.11-0.59) 01/21/24:44 Eos # (Auto) 0.02 K/uL (0.00-0.50) 01/21/24:44 Baso # (Auto) 0.01 K/uL (0.00-0.20) 01/21/24:44 Immature Gran # (Auto) 0.04 K/uL (0.01-0.20) 01/21/24 21:44 PT 11.4 Seconds (9.0-12.0) 01/21/24 21:44 INR 1.1 (0.9-1.1) 01/21/24 21:44 VBG pH 7.46 (7.36-7.41) H 01/21/24 21:44 VBG pCO2 41 mmHg (38-50) 01/21/24 21:44 VBG pO2 53 mmHg 01/21/24 21:44 VBG HCO3 29 mmol/L 01/21/24 21:44 VBG O2 Saturation 88.0 % 01/21/24 21:44 VBG Base Excess 4.9 mEq/L 01/21/24 21:44 POC Sodium 135 mmol/L (135-144) 01/21/24 21:50 Sodium 135 mmol/L (136-145) L 01/21/24 21:44 POC Potassium 3.9 mmol/L (3.3-5.0) 01/21/24 21:50 Potassium 3.9 mmol/L (3.5-5.1) 01/21/24 21:44 POC Chloride 98 mmol/L (101-112) L 01/21/24 21:50 Chloride 98 mmol/L (98-107) 01/21/24 21:44 Carbon Dioxide 28 mmol/L (21-32) 01/21/24 21:44 POC Total CO2 24 mmol/L (24-31) 01/21/24 21:50 Anion Gap 9 (3-11) 01/21/24 21:44 POC Anion Gap 18.0 mmol/L (16-25) 01/21/24 21:50 POC BUN 19 mg/dl (7-18) H 01/21/24 21:50 BUN 20 mg/dl (6-23) 01/21/24 21:44 Creatinine 1.32 mg/dl (0.6-1.4) 01/21/24 21:44 POC Creatinine 1.4 mg/dl (0.6-1.3) H 01/21/24 21:50 Est Cr Clr Drug Dosing 67.5 ml/min 01/21/24 21:44 eGFR 58.75 01/21/24 21:44 BUN/Creatinine Ratio 15.2 (10-20) 01/21/24 21:44 Glucose 148 mg/dl (70-99(Fasting)) H 01/21/24 21:44 POC Glucose (other) 150 mg/dl (70-99) H 01/21/24 21:50 Lactate 1.6 mmol/L (0.4-2.0) 01/21/24 21:59 Calcium 9.2 mg/dl (8.6-10.3) 01/21/24 21:44 POC Ioniz Calcium Nicholas 1.16 mmol/l (1.12-1.32) 01/21/24 21:50 Magnesium 1.6 mg/dl (1.7-2.4) L 01/21/24 21:44 Total Bilirubin 1.0 mg/dl (0.2-1.0) 01/21/24 21:44 Direct Bilirubin 0.2 mg/dl (0-0.2) 01/21/24 21:44 AST 12 U/L (13-39) L 01/21/24 21:44 ALT 13 U/L (7-52) 01/21/24 21:44 Alkaline Phosphatase 70 U/L (34-104) 01/21/24 21:44 Troponin I High Sens 8.4 pg/ml (0-20) 01/21/24 21:44 B-Natriuretic Peptide 36 pg/ml (0-100) 01/21/24 21:44 Total Protein 6.5 gm/dl (6.0-8.3) 01/21/24 21:44 Albumin 3.6 gm/dl (3.4-5.0) 01/21/24 21:44 Procalcitonin 0.16 ng/ml (0-0.5) 01/21/24 21:44 Nasal Screen MRSA (PCR) Negative (Negative) 01/21/24 22:07 Adenovirus (PCR) Not Detected (NotDetected) 01/21/24 22:07 B. pertussis DNA (PCR) Not Detected (NotDetected) 01/21/24 22:07 B.parapertussis DNA PCR Not Detected (NotDetected) 01/21/24 22:07 C. pneumoniae DNA (PCR) Not Detected (NotDetected) 01/21/24 22:07 Coronavirus OC43 (PCR) Not Detected (NotDetected) 01/21/24 22:07 Coronavirus HKU1 (PCR) Not Detected (NotDetected) 01/21/24 22:07 Coronavirus 229E (PCR) Not Detected (NotDetected) 01/21/24 22:07 SARS-CoV-2 (PCR) Not Detected (NotDetected) 01/21/24 22:07 Coronavirus NL63 (PCR) Not Detected (NotDetected) 01/21/24 22:07 Human Metapneumovir PCR Not Detected (NotDetected) 01/21/24 22:07 Influenza Type A (PCR) Not Detected (NotDetected) 01/21/24 22:07 Influenza Type B (PCR) Not Detected (NotDetected) 01/21/24 22:07 M. pneumoniae (PCR) Not Detected (NotDetected) 01/21/24 22:07 Parainfluenza 1 (PCR) Not Detected (NotDetected) 01/21/24 22:07 Parainfluenza 2 (PCR) Not Detected (NotDetected) 01/21/24 22:07 Parainfluenza 3 (PCR) Not Detected (NotDetected) 01/21/24 22:07 Parainfluenza 4 (PCR) Not Detected (NotDetected) 01/21/24 22:07 RSV (PCR) Not Detected (NotDetected) 01/21/24 22:07 Entero/Rhino (PCR) Not Detected (NotDetected) 01/21/24 22:07 Code Status & VTE Plan VTE Prophylaxis Plan VTE Prophylaxis will be ordered: Yes PG Care Time/CCT Total # of Minutes Spent Total Time Spent with Patient: Total time spent is greater than 50% in coordination of care (as documented) at patient's floor/unit and/or counseling patient: Coding Level of Care Code 66144 INT INP/OBS CARE 3/75MIN Diagnoses Acute on chronic respiratory failure with hypoxia J96.21 Pneumonia J18.9 Cancer of ventral surface of tongue C02.2 Chronic obstructive pulmonary disease, unspecified COPD type J44.9 COPD type: unspecified COPD (4) COPD (chronic obstructive pulmonary disease) COPD type: unspecified COPD Qualified Code(s): J44.9 - Chronic obstructive pulmonary disease, unspecified
[2024-01-22] MEDS ORDERED: ONDANSETRON INJ 2 MG/ML 2 ML VIAL IV PRN (01:21)
[2024-01-22] MEDS ORDERED: LEVALBUTEROL HCL 0.63 MG/3 ML NEB NEB PRN (01:21)
[2024-01-22] MEDS ORDERED: ACETAMINOPHEN 325 MG TAB PO PRN (01:21)
[2024-01-22] MEDS ORDERED: BENZONATATE 100 MG CAPSULE PO PRN (01:21)
[2024-01-22] MEDS: MAGNESIUM SULFATE / D5W 1 GM/100 ML BAG IV ONE (02:04)
[2024-01-22] MEDS: ALBUT/IPRATROP 3MG/0.5MG NEB 3 ML VIAL NEB SCH (02:12)
--- NOTE | 2024-01-22 02:32 | XRay Report ---
Exam(s): XR CXR 1 VIEW EXAM: XR Chest, 1 View CLINICAL HISTORY: Reason for exam: Sepsis. TECHNIQUE: Frontal view of the chest. COMPARISON: 01/16/2024 FINDINGS: Lungs: There is mild asymmetric chronic volume loss of the right lung. There has been interval development of patchy airspace consolidation in the right upper lobe and bilateral lung bases. There is a small right basilar pleural effusion. Pleural space: No pneumothorax. Heart: Unremarkable. No cardiomegaly. Mediastinum: The cardiomediastinal silhouette is stable. Bones/joints: Unremarkable. No acute fracture. IMPRESSION: Interval development of patchy right upper lobe and bilateral basilar patchy airspace consolidation suspicious for pneumonia. There is a small right basilar pleural effusion. Electronically signed by: Mike Vargas MD 01/22/24 02:31 AM
[2024-01-22] MEDS: PIPERACILLIN/TAZOBACTAM 4.5 GM/100 ML BAG IV SCH ×2 (04:13→18:33)
[2024-01-22 04:37] LABS: Hematocrit (blood only) 37.6 % (42.0-52.0); Hemoglobin 12.7 g/dl (14.0-18.0); Mean Corpuscular Hemoglobin 29.7 pg (25.0-34.0); Mean Corpuscular Hgb Conc 33.8 g/dL (32.0-36.0); Mean Corpuscular Volume 87.9 fL (80.0-100.0); Mean Platelet Volume 9.8 fL (9.4-12.4); Platelet Count 190 K/uL (130-400); RDW Coefficient of Variation 13.1 % (11.5-14.5); RDW Standard Deviation 42.3 fL (36.4-46.3); Red Blood Count 4.28 M/uL (4.70-6.10); White Blood Count 7.47 K/ul (4.8-10.8)
[2024-01-22 04:50] LABS: Appearance Urine Clear (Clear); Bilirubin Urine Negative (Negative); Blood Urine Negative (Negative); Color Urine Yellow; Glucose Urine UA Trace (Negative); Ketones Urine Negative (Negative); Leukocyte Esterase Urine Negative (Negative); Nitrite Urine Negative (Negative); Protein Urine Negative (Negative); Specific Gravity Urine 1.013 (1.000-1.030); Urobilinogen Urine Negative (Negative); pH Urine 5.5 (4.5-7.5)
[2024-01-22 04:51] LABS: BUN Creatinine Ratio 13.7 (10-20); Calcium 9.4 mg/dl (8.6-10.3); Creatinine Clr Calc Pharmacy 63.9 ml/min; Potassium 4.2 mmol/L (3.5-5.1)
[2024-01-22] MEDS: methylPREDNISolone 40 MG in SYRINGE 0 ML IV SCH (05:03)
[2024-01-22] MEDS ORDERED: methylPREDNISolone 125 MG/2 ML VIAL IV ONE (08:26)
[2024-01-22] MEDS: FLUTICASONE FUROATE 200MCG 14 PUFFS/INHALER INH SCH (08:49)
[2024-01-22] MEDS: METOPROLOL SUCC 50MG EXT REL TAB PO SCH (08:49)
[2024-01-22] MEDS: TAMSULOSIN HCL 0.4 MG CAP PO SCH (08:49)
[2024-01-22] MEDS: guaiFENesin 600 MG TABCR PO SCH (08:50)
[2024-01-22] MEDS: NYSTATIN SUSP 500,000 U/5 ML UDC PO SCH (08:50)
[2024-01-22] MEDS: ENOXAPARIN INJ 40 MG/0.4 ML SYR SQ SCH (08:50)
[2024-01-22] MEDS: LORazepam 0.5 MG TAB PO SCH (08:53)
[2024-01-22] MEDS ORDERED: UMECLIDINIUM/VILANTEROL 62.5/25MCG 7 PUFFS/INHALER INH SCH (09:00)
[2024-01-22] MEDS ORDERED: methylPREDNISolone 125 MG/2 ML VIAL IV SCH ×2 (09:00)
[2024-01-22] MEDS ORDERED: NON-FORMULARY MEDICATION (Fluticasone-Umeclidin-Vilanter [Trelegy Ellipta] 200-62.5-25 mcg INH SCH (09:00)
[2024-01-22] MEDS ORDERED: DOXYCYCLINE HYCLATE 100 MG in DEXTROSE 5% MINI-B 100 ML IV SCH (10:00)
[2024-01-22] MEDS: PANTOprazole 40 MG TAB PO SCH (10:30)
[2024-01-22] MEDS: methylPREDNISolone 40 MG in SYRINGE 0 ML IV ONE (10:30)
[2024-01-22] MEDS: SODIUM CHLOR 7% 4 ML NEB NEB SCH (10:38)
[2024-01-22] MEDS ORDERED: SODIUM CHLOR 7% 4 ML NEB NEB SCH (11:00)
[2024-01-22 15:28] LABS: Hematocrit (blood only) 37.5 % (42.0-52.0); Hemoglobin 12.3 g/dl (14.0-18.0); Mean Corpuscular Hemoglobin 28.8 pg (25.0-34.0); Mean Corpuscular Hgb Conc 32.8 g/dL (32.0-36.0); Mean Corpuscular Volume 87.8 fL (80.0-100.0); Mean Platelet Volume 10.1 fL (9.4-12.4); Platelet Count 193 K/uL (130-400); RDW Coefficient of Variation 13.1 % (11.5-14.5); RDW Standard Deviation 41.6 fL (36.4-46.3); Red Blood Count 4.27 M/uL (4.70-6.10); White Blood Count 6.96 K/ul (4.8-10.8)
[2024-01-22 15:47] LABS: Basophils # (auto) 0.01 K/uL (0.00-0.20); Basophils % (auto) 0.1 %; Immature Granulocytes # (auto) 0.04 K/uL (0.01-0.20); Immature Granulocytes % (auto) 0.6 %; Lymphocytes # (auto) 0.34 K/uL (1.20-3.40); Lymphocytes % (auto) 4.9 %; Monocytes # (auto) 0.25 K/uL (0.11-0.59); Monocytes % (auto) 3.6 %; Neutrophils # (auto) 6.32 K/uL (1.40-6.50); Neutrophils % (auto) 90.8 %
--- NOTE | 2024-01-22 17:23 | Hospitalist Progress Note ---
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 Christopher Liu, now in clinical remission as per patient's report, stage III right lateral tongue CA (diagnosed on 08/18/2023 tongue biopsy, [facility] OMFS Dr. Nawaf Durham), s/p right lateral tongue resection and right cervical lymph node dissection (11/29/2023, [facility] [place] [facility] Dr. Leonardo Oliver), now s/p XRT Tuesday-Tuesday (start date 01/09/2024, next XRT session on 01/23/2024 @ [facility], [facility] Heme-Onc Dr. Johnathan Arriola), and former tobacco abuse with subsequent development of chronic hypoxic respiratory failure, due to end- stage COPD on 2-4 liters/minute home O2 gttagc-ton-nesms and current steroid taper at home on prednisone 10mg tablet x 3 PO daily as of admission date 01/21/2024, who complains of worsening SOB/DEXTER at home, along with a dry cough with "mucus stuck in my chest and I can't cough it out even though I try hard to cough it up and out." Patient was subsequently admitted to the inpatient hospitalist service @ [facility] on 01/21/2024 with the following diagnoses: 1. Acute hypoxic respiratory failure (due to acute RUL, RLL, LLL CAP) ulitabahmrvd-gl-sntqfbl hypoxic respiratory failure (due to end-stage COPD on 2- 4 liters/minute home O2 zkyedt-did-olofz and current steroid taper at home on prednisone 10mg tablet x 3 PO daily). 2. Incipient sepsis due to acute RUL, RLL, LLL CAP. 3. Acute hypomagnesemia with Mg 1.6 mg/dL (01/21/2024, 9:44pm). To treat #1, patient was initially started on 4 liters/minute O2 via nasal cannula in [facility] ER on 01/21/2024, 9:45pm, advancing quickly to 5 liters/minute O2 via nasal cannula in [facility] ER on 01/21/2024, 9:51pm, then BIPAP on 01/21/2024, 10:00pm. Subsequently, patient was titrated back to 4 liters/minute O2 via nasal cannula in [facility] Tele bed #445-2 on 01/22/2024, 6:57am, then to 3 liters/minute O2 via nasal cannula on 01/22/2024, 10:41am, and remains there on 01/22/2024, 3:53pm. Patient also reported suffering from a dry cough with "mucus stuck in my chest and I can't cough it out even though I try hard to co ugh it up and out." Patient's Respiratory Therapist Ms. Celeste Curtis astutely noted that patient could benefit from 7% hypertonic saline (as a mucolytic agent) and chest percussion therapy (to mobilize secretions). Subsequently, I ordered both 7% hypertonic saline (01/22/2024, 9:30am) and chest percussion therapy q4h while patient is awake (01/22/2024, 9:30am). Subsequently, patient reports significant improvement with production/expectoration of copious volumes of yellow-brown phlegm (no hemoptysis) on 01/22/2024. Hence, patient will continue to receive both 7% hypertonic sale and chest percussion therapy as recommended by Respiratory Therapist Ms. Celeste Curtis, for as long as patient remains in [facility]. In addition, patient was started on solumedrol 40mg IV tid (day #1 on 01/21/2024, 1:22am) with a last dose administered on 01/22/2024, 8:22am; I subsequently ordered solumedrol 80mg IV daily x 3 days (starting on 01/22/2024, 9:00am; stopping on 01/24/2024, 9:00am), based on a delivery dose of 0.8mg solumedrol per kg of body weight per day, and a body weight of 105.4 kg. I also ordered protonix 40mg PO daily (day #1/4 on 01/22/2024, 9:00am) to prophylax against steroid-associated gastritis, ulcer formation, and/or GI bleeding. I also D/C'd patient's home-scheduled umeclidinium 62.5ug - vilanterol 25ug/puff, 1 puff PO daily, as long-acting beta 1 adrenergic agonists such as vilanterol are contra-indicated in patients diagnosed with acute hypoxic respiratory failure, regardless of etiology (cf., acute CAP; acute exacerbation of COPD), given the potential for paradoxical bronchospasm. In lieu of long- acting beta 1 adrenergic agonist vilanterol, I opted to continue short-acting beta 1 adrenergic agonist albuterol as part of duonebs q4h gfllmv-bvi-srhiq, and which are not associated with potential paradoxical bronchospasm. Of final note, patient continues to receive his home-scheduled, inhaled fluticasone 100ug/puff, 1 puff PO daily. To treat #2, patient was initially started on doxycycline 100mg IV q12 (day #1 on 01/21/2024, 10:01pm) and zosyn 4.5g IV q8 (day #1 on 01/21/2024, 10:01pm) in [facility] ER. Subsequently, MRSA nares screen was reported as negative on , 10:07pm. Hence, doxycycline 100mg IV q12 was discontinued on 01/21/2024, 11:58pm. Patient continues with monotherapy utilizing anti- pseudomonal zosyn 4.5g IV q8 (day #2/5 on 01/22/2024, 1:22am) as the possibility of pseudomonal pneumonia cannot be excluded in this patient with cough productive of tenacious mucus. Through elaboration of a mucilaginous capsule and biofilm production, Pseudomonas aeruginosa adheres to the respiratory tree like a gecko. At this time, dual therapy utilizing two anti-pseudomonal agents is not warranted. Instead, I will check patient's vitals, chest exam, WBC with differential, repeat lactic acid, repeat procalcitonin, and surveillance blood cultures #1 and #2 (01/21/2024, 10:15pm, 10:24pm) in the 01/23/2024 am. Of note, procalcitonin levels that exceed 0.10 ng/mL in the setting of pleural effusion(s) are most commonly associated with acute bacterial infection, and should NOT be interpreted as normal procalcitonin levels. Of further note, patients with non-small cell lung CA can have artificially elevated procalcitonin levels, independent of any acute bacterial pneumonia. To address #3, patient received magnesium sulfate 1g IV x 2 doses (01/21/2024, 10:47pm; 01/22/2024, 1:26am). Subsequently, acute hypomagnesemia RESOLVED with post-supplement Mg 2.2 mg/dL (01/22/2024, 2:03pm). (2) Pneumonia: Plan: See bullet #1 above. (3) Cancer of ventral surface of tongue: Plan: Patient has requested that the Hospitalist Service contact his [facility] Heme-Onc Dr. Johnathan Arriola on Tuesday morning (01/23/2024) to ensure that patient continues to receive his daily XRT Tuesday-Tuesday while in [facility]. (4) COPD (chronic obstructive pulmonary disease): Plan: See bullet #1 above. (5) Hypophosphatemia: Plan: Post-hospital admission diagnosis of persistent hypophosphatemia with PO4 2.4 mg/dL (01/22/2024, 2:03pm). cf., PO4 2.3 mg/dL (12/27/2023, 6:35am; 12/28/2023, 6:34am). cf., PO4 2.5 mg/dL (12/26/2023, 7:04am). Etiology of persistent hypophosphatemia remains unclear, but is probably due to decreased oral intake of meat-containing phosphorus. Hence, I have ordered potassium phosphate 30 mmol IV x 1 dose (01/22/2024, 6:52pm) and I will check repeat PO4 level in the 01/23/2024, 6:00am, as normophosphatemia is critical for muscle strength (e.g., think of ATP) and chemical reactions (e.g., think of signal transduction, DNA/RNA synthesis, and pH homeostasis). Plan Restless legs -Continue Ropinirole 0.5mg PO qpm. BPH -Continue Flomax 0.4mg PO qam. Patient maintains brisk urine output with no need for lugo catheter on 01/22/2024. HLP -I opted to D/C patient's home-scheduled atorvastatin 10mg PO qhs on 01/22/2024, 8:19am given the potential for this medication to cause myopathy and/or dyspepsia in this patient now suffering from incipient sepsis due to acute RUL, RLL, LLL CAP. F/E/N - Saline lock. Mg repletion x 2gm given, Soft diet with aspiration precautions DVT prophylaxis - Lovenox Code - Full code. ACLS as required. Condition of patient remains guarded. I anticipate that this patient will remain in [facility] for the next 3-5 days/midnights, in order to demonstrate clinical improvement in his two principal admitting diagnoses of: 1. Acute hypoxic respiratory failure (due to acute RUL, RLL, LLL CAP) suzrhuzyuors-zq-zrzuefr hypoxic respiratory failure (due to end-stage COPD on 2- 4 liters/minute home O2 ieqapl-zju-qohmo and current steroid taper at home on prednisone 10mg tablet x 3 PO daily). 2. Incipient sepsis due to acute RUL, RLL, LLL CAP. During this time in [facility], patient will also undergo daily PT/OT Service evaluations to determine if patient can be discharged back to his home or to SNF for short-term rehab, and will follow up with his PCP Dr. Aggie Mccollum within 3- 5 days of hospital discharge. To this end, I spoke with the patient and his , Ms. Linda Payan ( ) at the bedside in [facility] Tele bed #454-2 today, 01/22/2024, and both individuals concur with the assessment and plan as described herein. Admission and Anticipated Discharge Date Admission Date: January 21, 2024 Subjective "I feel a lot better after getting the 7% saline. I am coughing up a lot of mucus now; it was stuck in my chest for a long time. No blood." Review of Systems Review of Systems: Positive for dry cough at home, now with productive cough (AFTER starting patient on 7% hypertonic saline on 01/22/2024, 9:30am, for its mucolytic properties) and SOB/DEXTER. Positive for thrush. Negative for antecedent/coincident anosmia, ageusia, hypogeusia, myalgias, arthralgias, rhinorrhea, otorrhea, conjunctivitis, sick contacts, fevers, chills, diaphoresis, wheeze, sore throat, hemoptysis, chest pains, palpitations, pleurisy, nausea, vomiting, diarrhea, abdominal pain, pelvic pain, hematochezia, melena, hematuria, dysuria, frequency, urgency, headaches, dizziness, visual changes, hearing changes, falls, syncope, trauma, travel history, or food/drug ingestions novel/new. All other review of systems are reported as negative/normal on 01/22/2024. Physical Exam Physical Exam: General: comfortable, coherent, cooperative. Wide awake and alert. Not confused, lethargic, or obtunded. Patient speaks in complete, fluent, without pause, interruption, cough, or wheeze. HEENT: normocephalic, atraumatic. EOMI, PERRL. No nystagmus, gaze paresis, anisocoria, miosis, mydriasis, hyphema, chemosis, scleral icterus, conjunctivitis, or pterygium. No otorrorhea. No rhinorrhea. No pharyngeal discharge or exudate. Neck: suppler, no stridor, bruit, goiter, JVD, or HJR. Lymph: no cervical, supraclavicular, infraclavicular, axillary, epitrochlear, or inguinal adenopathy. Chest: symmetric rise and fall with respiration. Non-tender to palpation. Lungs: coarse breath sounds bilaterally. No audible expiratory wheeze, egophony, pectoriloquy, increase in tactile fremitus, or flatness/dullness to percussion at the bases. Heart: RRR, S1 and S2 noted. No S3 or S4 summation gallop. No tripartite friction rub. Grade II/ early systolic murmur @ LLSB, not radiating to the carotids, the axilla, or back. Invariant in regards to the respiratory cycle. Abdomen: soft, non-tender, non-distended. No rebound, guarding, Saravia's sign, or organomegaly. Bowel sounds auscultated in all 4 quadrants. Extremities: no clubbing, cyanosis, or edema. 2+ pedal pulses bilaterally. Skin: no decubitus ulcer or exanthem. Positive enanthem with thick adherent white plaque on anterior/posterior tongue, resists dislodgement with wooden tongue blade/depressor. Neurology: alert and oriented in regards to person, place, and time. DTR+ and symmetric. 5/5 motor strength in all 4 extremities, both proximally and distally. No tremors, tics, or myoclonus. Urology: no lugo catheter. No urethral discharge. Results & Data Results & Data Vital Signs (Past 12 Hours) Vital Signs Temp Pulse Pulse Resp BP Pulse Ox O2 Del Method 01/22/24 15:53 36.5 C 84 16 109/65 96 Nasal Cannula 01/22/24 15:18 84 16 96 Nasal Cannula 01/22/24 10:59 36.5 C 86 16 99/58 L 92 Room Air 01/22/24 10:41 85 17 95 Nasal Cannula 01/22/24 08:00 36.4 C L 93 H 18 98/65 L 93 High Flow Nasal Cannula 01/22/24 07:24 86 01/22/24 07:24 Nasal Cannula 01/22/24 06:57 93 H 23 98 Nasal Cannula O2 Flow Rate 01/22/24 15:53 3 01/22/24 15:18 3 01/22/24 10:59 01/22/24 10:41 3 01/22/24 08:00 01/22/24 07:24 01/22/24 07:24 01/22/24 06:57 4 Laboratory Results Procalcitonin #1 0.16 ng/mL (01/21/2024, 9:44pm). Procalcitonin #2 1.34 ng/mL (01/22/2024, 8:38am). Procalcitonin #3 (01/23/2024, 6:00am). Lactic acid #1 1.6 mmol/L (01/21/2024, 9:59pm). Lactic acid #2 3.8 mmol/L (01/22/2024, 8:38am). Lactic acid #3 3.4 mmol/L (01/22/2024, 1:58pm). Lactic acid #4 (01/22/2024, 5:58pm). Lactic acid #5 (01/23/2024, 6:00am). MRSA nares screen negative (01/21/2024, 10:07pm). Blood culture #1 (01/21/2024, 10:15pm): no growth to date Blood culture #2 (01/21/2024, 10:24pm): no growth to date [employer] respiratory pathogen panel (01/21/2024, 10:07pm): negative for adenovirus, Bordetella pertussis, Chlamydophila pneumoniae, Coronavirus OC43, Coronavirus HKU1, Coronavirus 229E, Coronavirus NL63, COVID, Human Metapneumovirus, Influenza A, Influenza B, Mycoplasma pneumoniae, Parainfluenzae 1, 2, 3, and 4, RSV, Enterovirus/rhinovirus WBC 5.47, N71 L17 M10, Hb 12.9, MCV 86.3, MCHC 33.9, platelet 192 (01/21/2024, 9:50pm). WBC 7.47, no differential, Hb 12.7, MCV 87.9, MCHC 33.8, platelet 190 (01/22/2024, 4:17am). WBC 6.96, N91 L5 M4, Hb 12.3, MCV 87.8, MCHC 32.8, platelet 193 (01/22/2024, 2:03pm). BUN 20, creatinine 1.32, GFR 58.8 (01/21/2024, 9:50pm). BUN 19, creatinine 1.39, GFR 55.2 (01/22/2024, 4:17am). BUN __, creatinine (01/23/2024, 8:00am). Mg 1.6 mg/dL (01/21/2024, 9:44pm). Mg (01/23/2024, 5:39pm). Diagnostic Findings Portable CXR (01/16/2024, 2:25pm): No infiltrate, effusion, cardiomegaly, pulmonary vascular congestion, or pneumothorax (by my review). Portable CXR (01/21/2024, 9:50pm): RUL and bibasilar infiltrates. R pleural effusion. No cardiomegaly, pulmonary vascular congestion, or pneumothorax (by my review). PG Care Time/CCT Total # of Minutes Spent Total Time Spent with Patient: Total time spent is greater than 50% in coordination of care (as documented) at patient's floor/unit and/or counseling patient: Coding Level of Care Code 24032 SUB INP/OBS CARE 3/50MIN Diagnoses Acute on chronic respiratory failure with hypoxia J96.21 Pneumonia J18.9 Cancer of ventral surface of tongue C02.2 Chronic obstructive pulmonary disease, unspecified COPD type J44.9 COPD type: unspecified COPD Hypophosphatemia E83.39 (4) COPD (chronic obstructive pulmonary disease) COPD type: unspecified COPD Qualified Code(s): J44.9 - Chronic obstructive pulmonary disease, unspecified
[2024-01-22 18:03] LABS: Magnesium 2.2 mg/dl (1.7-2.4)
[2024-01-22 18:08] LABS: Phosphorus 2.4 mg/dl (2.5-4.9)
[2024-01-22] MEDS: PIPERACILLIN/TAZOBACTAM 4.5 GM/100 ML BAG IV ONE (18:47)
[2024-01-22] MEDS ORDERED: POTASSIUM PHOS 3 MMOL/1 ML INFUSION IV STA (18:51)
[2024-01-22] MEDS: POTASSIUM PHOSPHATE 30 MMOL in SODIUM CHLORIDE 0.9% 500 ML IV ONE (19:27)
[2024-01-22] MEDS: ASPIRIN 81 MG ECTAB PO SCH (20:32)
[2024-01-22] MEDS: rOPINIRole HCL 0.25 MG TABLET PO SCH (20:32)
[2024-01-22] MEDS ORDERED: ATORVASTATIN 10 MG TAB PO SCH (21:00)
[2024-01-23 06:24] LABS: Basophils # (auto) 0.02 K/uL (0.00-0.20); Basophils % (auto) 0.3 %; Hematocrit (blood only) 34.2 % (42.0-52.0); Hemoglobin 11.5 g/dl (14.0-18.0); Immature Granulocytes # (auto) 0.08 K/uL (0.01-0.20); Immature Granulocytes % (auto) 1.2 %; Lymphocytes # (auto) 0.32 K/uL (1.20-3.40); Lymphocytes % (auto) 4.7 %; Mean Corpuscular Hemoglobin 29.3 pg (25.0-34.0); Mean Corpuscular Hgb Conc 33.6 g/dL (32.0-36.0); Mean Platelet Volume 9.7 fL (9.4-12.4); Monocytes # (auto) 0.43 K/uL (0.11-0.59); Monocytes % (auto) 6.4 %; Neutrophils # (auto) 5.92 K/uL (1.40-6.50); Neutrophils % (auto) 87.4 %; Platelet Count 184 K/uL (130-400); RDW Coefficient of Variation 12.6 % (11.5-14.5); RDW Standard Deviation 40.5 fL (36.4-46.3); Red Blood Count 3.93 M/uL (4.70-6.10); White Blood Count 6.77 K/ul (4.8-10.8)
--- NOTE | 2024-01-23 06:26 | Electrocardiogram Report ---
Test Reason : Blood Pressure : */* mmHG Vent. Rate : 143 BPM Atrial Rate : 143 BPM P-R Int : 150 ms QRS Dur : 72 ms QT Int : 256 ms P-R-T Axes : 75 59 70 degrees QTcB Int : 395 ms Sinus tachycardia When compared with ECG of 25-Dec-2023 17:51, No significant change was found Confirmed by Peña Hester ([id number]) on 01/23/2024 6:25:45 AM Referred By: REFERRED SELF Confirmed By: Peña Hester
[2024-01-23 06:41] LABS: BUN Creatinine Ratio 17.8 (10-20); Calcium 9.1 mg/dl (8.6-10.3); Creatinine Clr Calc Pharmacy 82.8 ml/min; Phosphorus 3.4 mg/dl (2.5-4.9)
[2024-01-23] MEDS: methylPREDNISolone 125 MG/2 ML VIAL ONE (07:57)
[2024-01-23] MEDS: ALBUT/IPRATROP 3MG/0.5MG NEB 3 ML VIAL ONE (07:57)
[2024-01-23] MEDS: ACETAMINOPHEN 1000 MG/100 ML IV IV ONE (07:57)
[2024-01-23] MEDS: ALBUTEROL 0.083% NEBU SOLN 3 ML VIAL ONE (07:57)
--- NOTE | 2024-01-23 08:52 | Hospitalist Progress Note ---
Date of Service January 23, 2024 Assessment & Plan (1) Acute on chronic respiratory failure with hypoxia: Plan: Secondary to pneumonia and end-stage COPD with exacerbation, chronically on 2-4 liters/minute home O2 sjpnqt-jka-rzyvp at home, initially requiring BiPAP here With a history of right upper lobectomy for previous adenocarcinoma of the lung s/p chemotherapy and radiation Improving, coughing up copious sputum Change IV steroids to prednisone 40 mg p.o. 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-ordered Continue antibiotics for pneumonia Continue O2 supplementally (2) Pneumonia: Plan: With bibasilar and right upper lobe lobe opacities on chest x-ray, coughing up copious thick yellow sputum Procalcitonin decreased to 1.05, lactate normalized, blood cultures-no growth to date Add azithro for atypical coverage to current Zosyn check sputum cx Follow blood cultures BCxs NGTD follow CXR to resolution (3) Cancer of ventral surface of tongue: Plan: s/p right partial glossectomy and currently undergoing radiation With superimposed oral candidiasis and pain in mouth likely from radiation Change diet to minced and moist Add Magic swizzle for pain Treat oral candidiasis Continue with daily radiation therapy Follow-up with ENT and oncology as an outpatient (4) Oral candidiasis: Plan: continue nystatin and increase dose to 5mL qid x 2 week course change diet to minced and moist given pain of tongue with chewing (5) COPD (chronic obstructive pulmonary disease): Plan: With acute COPD exacerbation with chronic resp failure-now at baseline change IV steroids to po prednisone and taper off continue hypertonic saline nebs, bronchodilators continue home O2 3LNC (6) Hypophosphatemia: Plan: and hypomagnesemia on admission-both resolved with replacement Plan Chronic medical problems: Restless legs -Continue Ropinirole 0.5mg PO qpm. BPH -Continue Flomax 0.4mg PO qam. Patient maintains brisk urine output with no need for lugo catheter HLP -ok to resume home atorvastatin 10mg PO qhs DVT prophylaxis - Lovenox Code - Full code Disposition-continued stay on telemetry, possible discharge to home tomorrow if continues to improve Admission and Anticipated Discharge Date Admission Date: January 21, 2024 Subjective Patient reports ongoing pain in his mouth and difficulty with chewing regular food. Reports he is coughing up mucus that is thick and yellow. He is on his baseline O2 at 3L NC. I discussed his care with his carpet sewing machine operator as well as with his radiation oncologist Telemetry with normal sinus rhythm and sinus tachycardia with rates in the 100s Physical Exam Constitutional: WD/WN, vitals as above ENMT: Mouth: + tongue abnormality (Geographic tongue, minimal white exudate, partial resection right side) Respiratory: normal respiratory effort and + cough Auscultation: + crackles (Right lower lung field); no rhonchi and no wheezes Cardiovascular: RRR, no murmur, no edema Psychiatric: A+Ox3, euthymic affect Results & Data Results & Data Vital Signs (Past 12 Hours) Vital Signs Temp Pulse Pulse Resp BP Pulse Ox Pulse Ox 01/23/24 07:22 36.6 C 98 H 20 108/71 94 01/23/24 06:50 99 H 20 97 01/23/24 02:58 36.4 C L 68 18 96/60 L 95 01/23/24 02:40 101 H 18 96 01/23/24 01:21 95 01/22/24 22:58 98 H 01/22/24 22:39 36.8 C 97 H 18 103/61 95 O2 Del Method O2 Del Method O2 Flow Rate O2 Flow Rate 01/23/24 07:22 Nasal Cannula 3 01/23/24 06:50 Nasal Cannula 3 01/23/24 02:58 Nasal Cannula 3 01/23/24 02:40 Nasal Cannula 3 01/23/24 01:21 Nasal Cannula 3 01/22/24 22:58 01/22/24 22:39 Room Air Laboratory Results CBC, BMP, phosphorus, lactate, procalcitonin reviewed PG Care Time/CCT Total # of Minutes Spent Total Time Spent with Patient: Total time spent is greater than 50% in coordination of care (as documented) at patient's floor/unit and/or counseling patient: Coding Level of Care Code 44542 SUB INP/OBS CARE 3/50MIN Diagnoses Acute on chronic respiratory failure with hypoxia J96.21 Pneumonia J18.9 Cancer of ventral surface of tongue C02.2 Oral candidiasis B37.0 Chronic obstructive pulmonary disease, unspecified COPD type J44.9 COPD type: unspecified COPD Hypophosphatemia E83.39 (5) COPD (chronic obstructive pulmonary disease) COPD type: unspecified COPD Qualified Code(s): J44.9 - Chronic obstructive pulmonary disease, unspecified
[2024-01-23] MEDS: methylPREDNISolone 80 MG in SYRINGE 0 ML IV SCH (09:51)
[2024-01-23] MEDS: NYSTATIN SUSP 500,000 U/5 ML UDC PO SCH (09:52)
[2024-01-23] MEDS: AZITHROMYCIN 250 MG TAB PO ONE (10:24)
--- NOTE | 2024-01-23 15:47 | Pulmonary Consultation ---
Date of Consultation January 23, 2024 Assessment & Plan (1) Pneumonia: Laterality: bilateral Lung location: lower lobe of lung P neumonia type: due to unspecified organism Qualified Code(s): J18.9 - Pneumonia, unspecified organism (2) COPD (chronic obstructive pulmonary disease): COPD type: COPD with acute lower respiratory infection Qualified Code(s): J44.0 - Chronic obstructive pulmonary disease with (acute) lower respiratory infection (3) Acute on chronic respiratory failure with hypoxia: (4) Cancer of ventral surface of tongue: (5) Oral candidiasis: Plan CT chest 12/25/2023 personally reviewed: Right upper lobe sugar There is consolidative process appreciated around the staple area, Right lower lobe pulmonary nodule/opacity Severe centrilobular and paraseptal emphysema appreciated bilaterally Volume loss on the right side No significant mediastinal lymphadenopathy PFT 02/26/2023 personally: Severe obstructive lung dysfunction, insignificant bronchodilator response, normal TLC, air trapping, moderate decrease in DLCO (Increase in FVC by 70 mL, no significant change in FEV1 or DLCO compared to 11/26) FVC 2.43 L 52%, FEV1 1.18 L 33%, FEV1/FVC 47%, ERV 10%, RV 176%, TLC 83%, RV/TLC 205%, DLCO 44%, DLCO/VA 124% -- Acute on chronic chronic hypoxic respiratory failure At baseline 2 L at rest and 4 L oxygen on exertion Advised to keep oxygen between 88-92% Respiratory BioFire negative for everything on 01/21/2024 Procalcitonin 1.05, nasal MRSA negative --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 Albuterol and DuoNeb's on as-needed basis. Recently started on azithromycin 250 mg [id number]-Fepcbgfgw-[id number], QTc 410 on 03/05/2023 Patient is not a candidate for [place] well given the history of lung cancer Lung transplant could be considered but keeping in mind that he did get radiation as well to the right upper lobe, he would not be a candidate for the same reason --Multiple pulmonary nodules Largest being 7 mm pleural-based left lower lobe, Unchanged since 2018 New spiculated 1.6 x 1 cm nodule in the superior segment of the right lower lobe CT chest 11/24/2022 --> decreasing in size and not FDG avid on the PET/CT 12/16/2022 --> resolved on CT chest 04/30 --History of DALIA Needed CPAP of 12 on titration study done in 2018 Patient was not able to tolerate CPAP device I advised him to give another trial but he is not willing to do so. 2D echo 04/13/2021 personally reviewed: LV not well visualized, grossly normal EF, RV not well visualized --Ex-smoker [id number] smoking history Quit in 2011 Encouraged to continue abstinence from all --History of adenocarcinoma of the lung S/p right upper lobectomy, chemo and radiation -- Squamous cell carcinoma of the tongue S/p surgery times 2, currently undergoing radiation Plan: Start patient on Solumedrol Mucinex with flutter valve Change azithro to doxy for 5 days. F/u sputum culture If there is no improvement in patient symptoms then CT chest will be considered. Please note the above document was generated using voice recognition software. It may contain grammatical, syntax or spelling errors.Any formal questions or concerns about the content, text or information contained within the body of this dictation should be directly addressed to the provider for clarification. History of Present Illness Attending Physician: Arlene Gonzalez MD History of Present Illness 68-year-old male following up with pulmonary for COPD Past medical history: Hypertension, right upper lobe adenocarcinoma 2011, s/p chemo Patient was last seen by me on 06/21/2023 Patient's was in the room during interrogation examination Is compliant with Trelegy inhaler on a daily basis and azithromycin also which he takes 3 times a week Occasional cough with clear phlegm, no chest congestion. No hemoptysis No fever or chills No headache or blurry vision No night sweats, no unintentional weight loss. Social history: [id number] smoking history, quit in 2011. Social alcohol, denies any illicit drug use. Used to work in a [employer]. Also worked in [employer]. Exposure to fumes and chemicals. Did not wear mask Pets: None. Did not grow up in a farm Allergies: Seasonal. Takes [id number] medications for it Asthma: No personal family history of asthma Lung cancer: No history of lung cancer in the family Allergies Allergy/AdvReac Type Severity Reaction Status Date / Time diltiazem Allergy Intermediate REDNESS Verified 01/16/24 13:43 "MADE ME LOOK LIKE A STRAWBERRY" bee venom protein (honey bee) Allergy Unknown LOCAL Verified 01/16/24 13:43 SWELLING Home Medications Medication Instructions Recorded Confirmed Type multivitamin 1 tab PO QAM 02/11/18 01/21/24 History aspirin 81 mg tablet,delayed 81 mg PO QPM 06/09/21 01/21/24 History release (Adult Low Dose Aspirin) triamcinolone acetonide 0.025 % 1 applic topical PRN 02/08/22 01/21/24 History topical ointment guaifenesin 1,200 mg tablet, 1,200 mg PO BID 09/15/22 01/21/24 History extended release 12 hr (Mucinex) tamsulosin 0.4 mg capsule 0.4 mg PO QAM 09/15/22 01/21/24 History Oxygen Home 09/17/22 01/16/24 History meclizine 25 mg tablet See Rx Instructions PO TID PRN 01/12/23 01/16/24 Rx dizziness or vertigo #30 tabs ropinirole 0.5 mg tablet 0.5 mg PO PM #90 tabs 02/15/23 01/21/24 Rx benzonatate 200 mg capsule 200 mg PO TID PRN cough #20 caps 03/01/23 01/21/24 Rx nebulizers #1 ea 04/15/23 01/16/24 Rx betamethasone dipropionate 0.05 % 1 applic topical BID PRN skin 04/21/23 01/16/24 Rx topical cream irritation #15 grams azithromycin 250 mg tablet 250 mg PO .COMPLEX #36 tabs 06/08/23 01/21/24 Rx Portable Oxygen #1 ea 06/21/23 01/16/24 Rx albuterol sulfate 90 mcg/actuation 2 puff inhalation Q4H PRN 06/21/23 01/21/24 Rx aerosol inhaler shortness of breath or wheezing #3 Inhalers fluticasone fur. 200 mcg-umeclid 1 inh inhalation QAM #3 Inhalers 06/21/23 01/21/24 Rx 62.5 mcg-vilant 25 mcg inhalat.powder (Trelegy Ellipta) atorvastatin 10 mg tablet 10 mg PO HS #90 tabs 09/02/23 01/21/24 Rx levocetirizine 5 mg tablet 5 mg PO DAILY PRN Allergy Symptoms 09/02/23 01/21/24 Rx #90 tabs metoprolol succinate 50 mg 50 mg PO QAM #90 tabs 09/02/23 01/21/24 Rx tablet,extended release 24 hr (Toprol XL) ipratropium 0.5 mg-albuterol 3 mg 3 ml inhalation QID PRN shortness 12/28/23 01/16/24 Rx (2.5 mg base)/3 mL nebulization of breath or wheezing #1,080 vials soln Saccharomyces boulardii 250 mg 250 mg PO BID #60 caps 01/02/24 01/21/24 Rx capsule (Florastor) lorazepam 0.5 mg tablet 0.5 mg buccal DAILY anxiety #30 01/16/24 01/21/24 Rx tabs prednisone 10 mg tablet See Rx Instructions PO DAILY #30 01/16/24 01/21/24 Rx tabs cholecalciferol (vitamin D3) 25 25 mcg PO DAILY 01/21/24 01/21/24 History mcg (1,000 unit) tablet (Vitamin D3) nystatin 100,000 unit/mL oral 4 ml PO QID 10 days #160 mL 01/21/24 01/21/24 Rx suspension Magic Mouthwash 300 mL mouthwash 10 ml mucous membrane ACHS Sore 01/23/24 Rx throat #300 mL Patient History Medical History Dependence on continuous supplemental oxygen wears 1-3l nc cont as needed. "will bump up if needed" Polyneuropathy Periodic limb movement BPH (benign prostatic hyperplasia) History of foot ulcer resolved Elevated cholesterol Hx of Mobitz type I block pt reports tachycardia>reason for metoprolol Hyperlipidemia History of COVID-19 02/2023- hospitalized at [place] Vitamin D deficiency hx 2nd degree AV block follows w/ Dr Holloway DALIA (obstructive sleep apnea) uses 2 lpm HS Pulmonary nodule Arthritis History of anemia History of lung cancer RUL, s/p lobectomy - [facility], 2011>chemo and radiation H/O deep venous thrombosis 2011>when going through chemo (was on coumadin for years) Chronic respiratory failure with hypoxia follows w/ Dr Seo H/O testicular mass benign Restless leg syndrome Stage 4 very severe COPD by GOLD classification Surgical History History of surgery S/P right partial glossectomy;Right neck dissection;Placement of acellular dermal matrix graft on 11/29/23 Dr. Oliver H/O excision of mass right lateral tongue, nasopharyngeal scope, frozen section; 08/18/23 Dr Nawaf [place] History of surgery on lower extremity left (hardware intact) History of lumbar surgery laminectomy History of cystoscopy History of esophagogastroduodenoscopy (EGD) History of colonoscopy History of tooth extraction History of tonsillectomy History of lumbar laminectomy History of lung surgery RUE lobectomy r/t lung cancer Hx of fusion of cervical spine good rom Hx of cholecystectomy (1990) Family History Father Stroke syndrome Gallbladder disease Mother Gallbladder disease Lung disease Hypertension Cardiac disorder Congestive heart failure Brother Myocardial infarction Sister No problems noted. Denies family history of Ovarian cancer Prostate cancer Breast cancer Colorectal cancer Social History Smoking Status: Former smoker Tobacco Type: Cigarettes and Smokeless Tobacco (Dip or Chew) Age Started Using Tobacco: 18; Age Quit Using Tobacco: 56; packs per day: 1.5; Cigarettes Per Day: 20-30 per day; Second Hand Exposure: No; Do You Dip or Chew Tobacco: No; Tobacco Cessation Education Requested by Patient: No Hx Alcohol Use: No Hx Substance Use: No Preferred Language: Scottish Communication Ability: Effective Visual Impairment: Limited Hearing Ability: Use of Hearing Aid In Service Educator Required: No Beliefs That Will Affect Care: None marital status: Current Living Situation: Spouse Current Living Situation Comment: single story home current occupational status: employed and retired 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, 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 How many Children do You have: 5 Other Information That Helps Us Care for You: No Feels Safe at Home: Yes Safety Concerns: Feels Safe At This Time Childhood Exposure to Second-Hand Smoke: Yes Diet: regular Diet Comment: regular Dental Care, Regularly: No Physical Activity Frequency: Does not Exercise Seatbelt Use: never Sunscreen Use: No Assistive Devices: Cane, Crutches, Oxygen - Continuous and Walker Review of Systems 2 Review of Systems: All systems reviewed & are unremarkable except as noted in HPI & below Physical Exam 2 Physical Exam: Constitutional: No acute distress HEENT: EOMI, PERRLA Respiratory system: Decreased entry bilaterally, no rhonchi, no crackles, + expiratory wheeze bilaterally CVS: S1-S2 positive, no murmurs or gallops Abdomen: Soft, nontender, nondistended, positive bowel sounds x4, obese Extremities: +2 pulses bilaterally radialis, no cyanosis, +1 pitting edema b/l LE Neuro: Awake alert oriented x3 Psych: Normal mood and affect G/U: No Bernardo Skin: no rashes, warm and dry Lymphatic: no cervical or axillary lymphadenopathy Results & Data Results & Data Vital Signs (Past 12 Hours) Vital Signs Temp Pulse Resp BP BP Pulse Ox O2 Del Method 01/23/24 15:29 90 12 97 Nasal Cannula 01/23/24 15:20 36.5 C 88 19 111/72 96 Nasal Cannula 01/23/24 07:22 36.6 C 98 H 20 108/71 94 Nasal Cannula 01/23/24 06:50 99 H 20 97 Nasal Cannula O2 Flow Rate 01/23/24 15:29 3 01/23/24 15:20 3 01/23/24 07:22 3 01/23/24 06:50 3 Laboratory Results 01/23/24 06:06 01/23/24 06:06 PG Care Time/CCT Total # of Minutes Spent Total Time Spent with Patient: Total time spent is greater than 50% in coordination of care (as documented) at patient's floor/unit and/or counseling patient: Coding Level of Care Code 56674 INT INP/OBS CARE 3/75MIN Diagnoses Pneumonia J18.9 Laterality: bilateral Lung location: lower lobe of lung Pneumonia type: due to unspecified organism COPD (chronic obstructive pulmonary disease) J44.0 COPD type: COPD with acute lower respiratory infection Acute on chronic respiratory failure with hypoxia J96.21 Cancer of ventral surface of tongue C02.2 Oral candidiasis B37.0
[2024-01-23] MEDS: FIRST - Mouthwash BLM 119 ML PO PRN (16:53)
[2024-01-23] MEDS: BUDESONIDE 0.5 MG/2 ML VIAL (PULMICORT) NEB SCH (19:35)
[2024-01-23] MEDS: FORMOTEROL 20 MCG/2 ML VIAL INH SCH (19:35)
[2024-01-23] MEDS: guaiFENesin 600 MG TABCR PO SCH (20:12)
[2024-01-23] MEDS: DOXYCYCLINE HYCLATE 100 MG CAP PO SCH (20:12)
[2024-01-23] MEDS: ATORVASTATIN 10 MG TAB PO SCH (20:12)
[2024-01-23] MEDS: methylPREDNISolone 40 MG in SYRINGE 0 ML IV SCH (20:13)
[2024-01-23] MEDS: SACCHAROMYCES BOULARDII 250 MG CAP PO SCH (20:13)
[2024-01-23] MEDS ORDERED: methylPREDNISolone 1000 MG/16 ML IV SCH (21:00)
[2024-01-24 06:25] LABS: Basophils # (auto) 0.01 K/uL (0.00-0.20); Basophils % (auto) 0.1 %; Hematocrit (blood only) 35.9 % (42.0-52.0); Hemoglobin 12.2 g/dl (14.0-18.0); Immature Granulocytes # (auto) 0.27 K/uL (0.01-0.20); Immature Granulocytes % (auto) 3.9 %; Lymphocytes # (auto) 0.39 K/uL (1.20-3.40); Lymphocytes % (auto) 5.7 %; Mean Corpuscular Hemoglobin 29.2 pg (25.0-34.0); Mean Corpuscular Volume 85.9 fL (80.0-100.0); Mean Platelet Volume 9.8 fL (9.4-12.4); Monocytes # (auto) 0.37 K/uL (0.11-0.59); Monocytes % (auto) 5.4 %; Neutrophils # (auto) 5.81 K/uL (1.40-6.50); Neutrophils % (auto) 84.9 %; Platelet Count 213 K/uL (130-400); RDW Coefficient of Variation 12.7 % (11.5-14.5); RDW Standard Deviation 39.6 fL (36.4-46.3); Red Blood Count 4.18 M/uL (4.70-6.10); White Blood Count 6.85 K/ul (4.8-10.8)
[2024-01-24 06:58] LABS: Albumin Level 3.3 gm/dl (3.4-5.0); Bilirubin,Total 0.5 mg/dl (0.2-1.0); Calcium 9.5 mg/dl (8.6-10.3); Creatinine Clr Calc Pharmacy 88.5 ml/min; Globulin 3.2 gm/dl (2.5-4.0); Magnesium 2.2 mg/dl (1.7-2.4); Potassium 4.5 mmol/L (3.5-5.1); Total Protein 6.5 gm/dl (6.0-8.3)
[2024-01-24] MEDS ORDERED: AZITHROMYCIN 250 MG TAB PO SCH (09:00)
[2024-01-24] MEDS ORDERED: predniSONE 20 MG TAB PO SCH (09:00)
[2024-01-24] MEDS: MULTIVITAMIN TAB PO SCH (09:13)
--- NOTE | 2024-01-24 10:52 | Pulmonology Progress Note ---
Date of Service January 24, 2024 Assessment & Plan (1) Pneumonia: Laterality: bilateral Lung location: lower lobe of lung P neumonia type: due to unspecified organism Qualified Code(s): J18.9 - Pneumonia, unspecified organism (2) COPD (chronic obstructive pulmonary disease): COPD type: COPD with acute lower respiratory infection Qualified Code(s): J44.0 - Chronic obstructive pulmonary disease with (acute) lower respiratory infection (3) Acute on chronic respiratory failure with hypoxia: (4) Cancer of ventral surface of tongue: (5) Oral candidiasis: Plan CT chest 12/25/2023 personally reviewed: Right upper lobe sugar There is consolidative process appreciated around the staple area, Right lower lobe pulmonary nodule/opacity Severe centrilobular and paraseptal emphysema appreciated bilaterally Volume loss on the right side No significant mediastinal lymphadenopathy PFT 02/26/2023 personally: Severe obstructive lung dysfunction, insignificant bronchodilator response, normal TLC, air trapping, moderate decrease in DLCO (Increase in FVC by 70 mL, no significant change in FEV1 or DLCO compared to 11/26) FVC 2.43 L 52%, FEV1 1.18 L 33%, FEV1/FVC 47%, ERV 10%, RV 176%, TLC 83%, RV/TLC 205%, DLCO 44%, DLCO/VA 124% -- Acute on chronic chronic hypoxic respiratory failure At baseline 2 L at rest and 4 L oxygen on exertion Advised to keep oxygen between 88-92% Respiratory BioFire negative for everything on 01/21/2024 Procalcitonin 1.05, nasal MRSA negative --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 Albuterol and DuoNeb's on as-needed basis. Recently started on azithromycin 250 mg Gdievj-Qywtawmjo-Satwus, QTc 410 on 03/05/2023 Patient is not a candidate for [place] well given the history of lung cancer Lung transplant could be considered but keeping in mind that he did get radiation as well to the right upper lobe, he would not be a candidate for the same reason --Multiple pulmonary nodules Largest being 7 mm pleural-based left lower lobe, Unchanged since 2018 New spiculated 1.6 x 1 cm nodule in the superior segment of the right lower lobe CT chest 11/24/2022 --> decreasing in size and not FDG avid on the PET/CT 12/16/2022 --> resolved on CT chest 04/30 --History of DALIA Needed CPAP of 12 on titration study done in 2018 Patient was not able to tolerate CPAP device I advised him to give another trial but he is not willing to do so. 2D echo 04/13/2021 personally reviewed: LV not well visualized, grossly normal EF, RV not well visualized --Ex-smoker [id number]-[id number] smoking history Quit in 2011 Encouraged to continue abstinence from all --History of adenocarcinoma of the lung S/p right upper lobectomy, chemo and radiation -- Squamous cell carcinoma of the tongue S/p surgery times 2, currently undergoing radiation Plan: Decrease Solu-Medrol to 40 mg on a daily basis as of tomorrow Continue Mucinex with flutter valve Continue with doxy for 5 days. F/u sputum culture Patient seems to have some focal bronchiectasis appreciated on the right side around the staple line He is having difficulty bringing up the phlegm and has failed flutter valve, I do think he is going to benefit from chest vest therapy at home I will get social worker palliative care involved Please note the above document was generated using voice recognition software. It may contain grammatical, syntax or spelling errors.Any formal questions or concerns about the content, text or information contained within the body of this dictation should be directly addressed to the provider for clarification. Admission and Anticipated Discharge Date Admission Date: January 21, 2024 Subjective Patient seen and examined at bedside. No acute distress, no adverse events overnight Patient's was also in the room at the time of examination He says that he is feeling better compared to before Coughing up clear phlegm. Chest vest therapy is significantly benefited him when bringing up the phlegm No nausea vomiting Fair appetite Review of Systems 2 Review of Systems: All systems reviewed & are unremarkable except as noted in Subjective Physical Exam 2 Physical Exam: Constitutional: No acute distress HEENT: EOMI, PERRLA Respiratory system: Decreased entry bilaterally, no rhonchi, no crackles, no wheezing CVS: S1-S2 positive, no murmurs or gallops Abdomen: Soft, nontender, nondistended, positive bowel sounds x4, obese Extremities: +2 pulses bilaterally radialis, no cyanosis, +1 pitting edema b/l LE Neuro: Awake alert oriented x3 Psych: Normal mood and affect G/U: No Bernardo Skin: no rashes, warm and dry Lymphatic: no cervical or axillary lymphadenopathy Results & Data Results & Data Vital Signs (Past 12 Hours) Vital Signs Temp Pulse Pulse Resp BP BP Pulse Ox 01/24/24 07:39 89 18 98 01/24/24 07:31 36.5 C 88 18 129/85 92 01/24/24 07:00 87 01/24/24 06:45 01/24/24 06:45 97 01/24/24 04:03 36.7 C 92 H 16 117/81 96 01/24/24 03:02 88 18 96 01/24/24 01:00 01/23/24 23:19 36.7 C 86 18 106/60 93 O2 Del Method O2 Del Method O2 Flow Rate O2 Flow Rate 01/24/24 07:39 Nasal Cannula 2 01/24/24 07:31 Nasal Cannula 2 01/24/24 07:00 01/24/24 06:45 Nasal Cannula 2 01/24/24 06:45 Nasal Cannula 3 01/24/24 04:03 Nasal Cannula 3.0 01/24/24 03:02 Nasal Cannula 3 01/24/24 01:00 Nasal Cannula 2 01/23/24 23:19 Nasal Cannula 2.0 Laboratory Results 01/24/24 05:43 01/24/24 05:43 PG Care Time/CCT Total # of Minutes Spent Total Time Spent with Patient: Total time spent is greater than 50% in coordination of care (as documented) at patient's floor/unit and/or counseling patient: Coding Level of Care Code 95804 SUB INP/OBS CARE 3/50MIN Diagnoses Pneumonia J18.9 Laterality: bilateral Lung location: lower lobe of lung Pneumonia type: due to unspecified organism COPD (chronic obstructive pulmonary disease) J44.0 COPD type: COPD with acute lower respiratory infection Acute on chronic respiratory failure with hypoxia J96.21 Cancer of ventral surface of tongue C02.2 Oral candidiasis B37.0
--- NOTE | 2024-01-24 20:08 | Hospitalist Progress Note ---
Date of Service January 24, 2024 Assessment & Plan (1) Acute on chronic respiratory failure with hypoxia: Plan: Secondary to pneumonia and end-stage COPD with exacerbation, chronically on 2-4 liters/minute home O2 [id number] at home, initially requiring BiPAP here With a history of right upper lobectomy for previous adenocarcinoma of the lung s/p chemotherapy and radiation With bronchiectasis surrounding the staple line in lung--> would benefit from vibration vest at home Improving, coughing up copious sputum Continue IV steroids and change to once daily tomorrow as per PULM Continue bronchodilators, hypertonic saline nebulizers and Rx these for at home Appreciate pulmonology consult Continue antibiotics for pneumonia with Zosyn x 7 days, doxy x 5 days, then back to home prophylaxis of azithro 250mg MWF Continue O2 supplementally (2) Pneumonia: Plan: With bibasilar and right upper lobe lobe opacities on chest x-ray, coughing up copious thick yellow sputum Procalcitonin decreased to 1.05, lactate normalized, blood cultures-no growth to date Continue Zosyn/doxy f/u sputum cx Follow blood cultures BCxs NGTD follow CXR to resolution (3) Cancer of ventral surface of tongue: Plan: s/p right partial glossectomy and currently undergoing radiation With superimposed oral candidiasis and pain in mouth likely from radiation continue diet to minced and moist continue Magic swizzle for pain and change to q4h prn Treat oral candidiasis with nystatin x 2 weeks Continue with daily radiation therapy Follow-up with ENT and oncology as an outpatient (4) Oral candidiasis: Plan: continue nystatin 5mL qid x 2 week course continue diet minced and moist given pain of tongue with chewing (5) COPD (chronic obstructive pulmonary disease): Plan: With acute COPD exacerbation with chronic resp failure-now at baseline continue IV steroids to po prednisone and taper off continue hypertonic saline nebs, bronchodilators continue home O2 3LNC Plan Chronic medical problems: Restless legs -Continue Ropinirole 0.5mg PO qpm. BPH -Continue Flomax 0.4mg PO qam. Patient maintains brisk urine output with no need for lugo catheter HLP Continue home atorvastatin 10mg PO qhs DVT prophylaxis - Lovenox Code - Full code Disposition-continued stay on telemetry, possible discharge to home tomorrow if continues to improve and sputum cx resulted Admission and Anticipated Discharge Date Admission Date: January 21, 2024 Subjective Feeling a little better, less cough. Tongue still painful and wants to try to magic swizzle prior to each meal (needs to be ordered more often) Tele with NSR, PVCs, rates 90-100s Physical Exam Constitutional: WD/WN, vitals as above ENMT: Mouth: + tongue abnormality (Geographic tongue, minimal white exudate, partial resection right side) Respiratory: normal respiratory effort and + cough Auscultation: + crackles (Right lower lung field); no rhonchi and no wheezes Cardiovascular: RRR, no murmur, no edema Psychiatric: A+Ox3, euthymic affect Results & Data Results & Data Vital Signs (Past 12 Hours) Vital Signs Temp Pulse Resp BP Pulse Ox O2 Del Method O2 Flow Rate 01/24/24 19:43 Nasal Cannula 2 01/24/24 19:31 36.8 C 100 H 18 112/69 93 Nasal Cannula 2 01/24/24 18:59 100 H 18 96 Nasal Cannula 2 01/24/24 15:45 36.5 C 96 H 18 119/74 92 Nasal Cannula 3 01/24/24 15:20 85 14 95 Nasal Cannula 2 01/24/24 11:21 86 18 97 Nasal Cannula 2 01/24/24 09:00 Nasal Cannula 2 Laboratory Results CBC, CMP, magnesium, blood and sputum cx reviewed PG Care Time/CCT Total # of Minutes Spent Total Time Spent with Patient: Total time spent is greater than 50% in coordination of care (as documented) at patient's floor/unit and/or counseling patient: Coding Level of Care Code 46310 SUB INP/OBS CARE 2/35MIN Diagnoses Acute on chronic respiratory failure with hypoxia J96.21 Pneumonia J18.9 Cancer of ventral surface of tongue C02.2 Oral candidiasis B37.0 Chronic obstructive pulmonary disease, unspecified COPD type J44.9 COPD type: unspecified COPD (5) COPD (chronic obstructive pulmonary disease) COPD type: unspecified COPD Qualified Code(s): J44.9 - Chronic obstructive pulmonary disease, unspecified
--- NOTE | 2024-01-25 07:31 | Pulmonology Progress Note ---
Date of Service January 25, 2024 Assessment & Plan (1) Pneumonia: Laterality: bilateral Lung location: lower lobe of lung P neumonia type: due to unspecified organism Qualified Code(s): J18.9 - Pneumonia, unspecified organism (2) COPD (chronic obstructive pulmonary disease): COPD type: COPD with acute lower respiratory infection Qualified Code(s): J44.0 - Chronic obstructive pulmonary disease with (acute) lower respiratory infection (3) Acute on chronic respiratory failure with hypoxia: (4) Cancer of ventral surface of tongue: (5) Oral candidiasis: (6) Chronic bronchitis: Plan CT chest 12/25/2023 personally reviewed: Right upper lobe sugar There is consolidative process appreciated around the staple area, Right lower lobe pulmonary nodule/opacity Severe centrilobular and paraseptal emphysema appreciated bilaterally Volume loss on the right side No significant mediastinal lymphadenopathy PFT 02/26/2023 personally: Severe obstructive lung dysfunction, insignificant bronchodilator response, normal TLC, air trapping, moderate decrease in DLCO (Increase in FVC by 70 mL, no significant change in FEV1 or DLCO compared to 11/26) FVC 2.43 L 52%, FEV1 1.18 L 33%, FEV1/FVC 47%, ERV 10%, RV 176%, TLC 83%, RV/TLC 205%, DLCO 44%, DLCO/VA 124% -- Acute on chronic chronic hypoxic respiratory failure At baseline 2 L at rest and 4 L oxygen on exertion Advised to keep oxygen between 88-92% Respiratory BioFire negative for everything on 01/21/2024 Procalcitonin 1.05, nasal MRSA negative --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 Albuterol and DuoNeb's on as-needed basis. Recently started on azithromycin 250 mg Oqkuxd-Acqmfhogl-Orliuj, QTc 410 on 03/05/2023 Patient is not a candidate for [facility] well given the history of lung cancer Lung transplant could be considered but keeping in mind that he did get radiation as well to the right upper lobe, he would not be a candidate for the same reason --Multiple pulmonary nodules Largest being 7 mm pleural-based left lower lobe, Unchanged since 2018 New spiculated 1.6 x 1 cm nodule in the superior segment of the right lower lobe CT chest 11/24/2022 --> decreasing in size and not FDG avid on the PET/CT 12/16/2022 --> resolved on CT chest 04/30 --History of DALIA Needed CPAP of 12 on titration study done in 2018 Patient was not able to tolerate CPAP device I advised him to give another trial but he is not willing to do so. 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 Okay to resume azithromycin Zjbnic-Qthdjkpre-Piuecl after completing antibiotic course F/u sputum culture . Given the oral thrush that he has been complaining of for a while, discontinue Trelegy. Would recommend to discharge the patient on Brovana or formoterol nebulized along with budesonide nebulized twice a day and Incruse inhaler 1 puff daily Continue with hypertonic saline nebulized twice a day, Mucinex and flutter valve for chest congestion Patient seems to have some focal bronchiectasis appreciated on the right side around the staple line Pt has Chronic Bronchitis with daily productive cough for years. Pt was tried and failed to produce sputum on own with hypertonic saline and chest PT. unfortunately he has insufficient expiratory force to produce sputum. Patient's inability to mobilize secretions is increasing the risk for further infections and hospitalization as this is his second hospitalization in a month I would recommend a CAT scan of the chest to be done around the end of March 2023 Patient can follow-up with Fred Wang in the next week or 2 and with me after the CAT scan of the chest is done Case was discussed with primary team as well as case management Please note the above document was generated using voice recognition software. It may contain grammatical, syntax or spelling errors.Any formal questions or concerns about the content, text or information contained within the body of this dictation should be directly addressed to the provider for clarification. Admission and Anticipated Discharge Date Admission Date: January 21, 2024 Subjective Patient seen and examined at bedside. No acute distress, no adverse events overnight Denies any headache, no nausea, no vomiting Breathing is improved Bringing up clear phlegm with the help of chest vest Oral thrush is also improved. Denies any headache or blurry vision Review of Systems 2 Review of Systems: All systems reviewed & are unremarkable except as noted in Subjective Physical Exam 2 Physical Exam: Constitutional: No acute distress HEENT: EOMI, PERRLA Respiratory system: Decreased entry bilaterally, no rhonchi, no crackles, no wheezing CVS: S1-S2 positive, no murmurs or gallops Abdomen: Soft, nontender, nondistended, positive bowel sounds x4, obese Extremities: +2 pulses bilaterally radialis, no cyanosis, +1 pitting edema b/l LE Neuro: Awake alert oriented x3 Psych: Normal mood and affect G/U: No Bernardo Skin: no rashes, warm and dry Lymphatic: no cervical or axillary lymphadenopathy Results & Data Results & Data Vital Signs (Past 12 Hours) Vital Signs Temp Pulse Resp BP Pulse Ox O2 Del Method O2 Del Method 01/25/24 07:16 90 12 96 Nasal Cannula 01/25/24 07:11 36.6 C 90 18 131/79 97 Nasal Cannula 01/25/24 03:45 36.7 C 95 H 18 116/69 96 Nasal Cannula 01/25/24 02:41 15 95 Nasal Cannula 01/25/24 01:00 Nasal Cannula 01/24/24 23:12 36.6 C 94 H 19 134/82 93 Nasal Cannula 01/24/24 19:43 Nasal Cannula 01/24/24 19:31 36.8 C 100 H 18 112/69 93 Nasal Cannula O2 Flow Rate O2 Flow Rate 01/25/24 07:16 2 01/25/24 07:11 2 01/25/24 03:45 01/25/24 02:41 2 01/25/24 01:00 2 01/24/24 23:12 01/24/24 19:43 2 01/24/24 19:31 2 Laboratory Results 01/24/24 05:43 01/24/24 05:43 PG Care Time/CCT Total # of Minutes Spent Total Time Spent with Patient: Total time spent is greater than 50% in coordination of care (as documented) at patient's floor/unit and/or counseling patient: Coding Level of Care Code 25110 SUB INP/OBS CARE MIN Diagnoses Pneumonia J18.9 Laterality: bilateral Lung location: lower lobe of lung Pneumonia type: due to unspecified organism COPD (chronic obstructive pulmonary disease) J44.0 COPD type: COPD with acute lower respiratory infection Acute on chronic respiratory failure with hypoxia J96.21 Cancer of ventral surface of tongue C02.2 Oral candidiasis B37.0 Chronic bronchitis J42
[2024-01-25] MEDS: FIRST - Mouthwash BLM 119 ML PO PRN (08:24)
[2024-01-25] MEDS: methylPREDNISolone 40 MG in SYRINGE 0 ML IV SCH (08:32)
[2024-01-25 11:23] VITALS: PULSE 96; RESP 17; TEMP 98.1; O2SAT 94
--- NOTE | 2024-01-25 12:30 | Discharge Summary ---
Discharge Summary Date of Service January 25, 2024 Principal Dx & Hospital Course #1 = Principal Diagnosis (1) Acute on chronic respiratory failure with hypoxia: Secondary to pneumonia and end-stage COPD with exacerbation, chronically on 2-4 liters/minute home O2 oapjni-cyr-wfqbg at home, initially requiring BiPAP here and now back to baseline O2 requirement With a history of right upper lobectomy for previous adenocarcinoma of the lung s/p chemotherapy and radiation With bronchiectasis surrounding the staple line in lung--> would benefit from vibration vest at home in addition to ongoing hypertonic saline nebulizers Improving, coughing up copious sputum and this is now improving Received IV steroids and then change to prednisone 20 mg once daily tomorrow as per PULM x 3 more days Continue budesonide and Brovana nebulizers twice daily, hypertonic saline nebulizers twice daily. His Trelegy inhaler will be replaced with these nebulizers plus Incruse Ellipta Appreciate pulmonology [id number] as an outpatient Received Zosyn x 4 days, doxy x 2 days, discharged to home on Augmentin x 3 more days, doxycycline x 4 and half more days, then back to home prophylaxis of azithro 250mg MWF Continue O2 supplementally (2) Pneumonia: With bibasilar and right upper lobe lobe opacities on chest x-ray, coughing up copious thick yellow sputum Procalcitonin decreased to 1.05, lactate normalized, blood cultures-no growth to date Sputum culture scant normal megan at the time of discharge but not finalized f/u sputum cx by PCP or pulmonology after discharge Antibiotics as noted above CT chest in 2 months to assess for resolution-to be ordered by pulmonology (3) Cancer of ventral surface of tongue: s/p right partial glossectomy and currently undergoing radiation With superimposed oral candidiasis and pain in mouth likely from radiation continue diet minced and moist continue Magic swizzle for pain after discharge Treat oral candidiasis with nystatin x 2 weeks Continue with daily radiation therapy Follow-up with ENT and oncology as an outpatient (4) Oral candidiasis: continue nystatin 5mL qid x 2 week course continue diet minced and moist given pain of tongue with chewing (5) COPD (chronic obstructive pulmonary disease): With acute COPD exacerbation with chronic resp failure-now at baseline Received steroids and prednisone on discharge as noted above continue hypertonic saline nebs, bronchodilators continue home O2 3LNC Plan Chronic medical problems: Restless legs -Continue Ropinirole 0.5mg PO qpm. BPH -Continue Flomax 0.4mg PO qam. no acute issues or retention HLP Continue home atorvastatin 10mg PO qhs DVT prophylaxis - Lovenox Code - Full code Disposition-discharge to home today Notes For Next Care Provider Needs follow-up chest CT in 2 months with pulmonology Medication Changes From Visit See list below Admission HPI Per Admitting Provider Rodney Payan is a pleasant 68yo male with history of chronic hypoxic respiratory failure on 2-4L home O2, very severe COPD with emphysema and chronic bronchitis, Lung CA s/p RUL lobectomy, prior provoked DVT presenting from home with shortness of breath. Patient was admitted to [facility] 12/24 - 12/30/23 with pneumonia, sepsis and COPD. He was treated inpatient and ultimately discharged home with Prednisone and Keflex. He was seen by his PCP on 01/16/24 with complaint of several days of worsening shortness of breath. He was noted to have diffuse wheezing and rhonchi on exam. CXR was performed which did not reveal volume overload or pneumonia. He was prescribed Prednisone taper and Azithromycin. Patient reports progressive shortness of breath as well as dry cough and wheeze. He has been taking his Trelegy at home until recently when he developed thrush. He has been taking DuoNebs q 4-5 hours at home with no relief. He has had fever for the last two days as well. Otherwise denies chest pain, palpitations, dizziness, edema, orthopnea, nausea, vomiting ER Course: Patient received DuoNebs x 2 and Solumedrol 125mg IV by EMS Xopenex NSS x 500mL Zosyn 4.5gm Doxy 100mg IV Magnesium 1gm Discharge Exam Constitutional WD/WN, vitals as above ENMT Mouth: + tongue abnormality (Geographic tongue, minimal white exudate, partial resection right side) Respiratory normal respiratory effort; no cough Auscultation: lungs clear to auscultation bilaterally Cardiovascular RRR, no murmur, no edema Psychiatric A+Ox3, euthymic affect Discharge Plan Discharge Items Patient Disposition: Home - Self-Care Reason For Visit: RESPIRATORY DISTRESS Discharge Diagnosis: Pneumonia Acute on chronic respiratory failure with hypoxemia COPD exacerbation Oral candidiasis Activity: Resume your previous activity Non-emergency contact: Primary Care Provider, Oncologist and [employer] Float Finisher Call non-emergency contact if: you have any medication questions, your symptoms worsen and you have a fever Follow-up/Referrals: Aggie Mccollum MD [Primary Care Provider] - (Please follow-up within 1 to 2 weeks after discharge.) Colt Seo MD, [facility] [Physician] - (Please follow-up within 2 weeks after discharge.) Diet: Regular Diet Texture: Mechanical soft (ground) Addtl Attending Provider Instructions: Please finish out the course of antibiotics and prednisone for your pneumonia and COPD exacerbation. Continue on the saline nebulizer treatments as well, twice a day along with your new budesonide and Brovana nebulizer treatments twice a day. You can use the albuterol/ipratropium in between his treatments as needed for cough or wheezing. Continue the nystatin swish and swallow for your oral thrush for 2 weeks and you can use Magic mouthwash as needed for pain associated with the radiation to your tongue. You will be started on a new inhaler called Incruse and your Trelegy will be discontinued. A vibration vest is being arranged for you through the medical case worker and the supervisor [employer]. You will need a follow-up CT scan of the chest in about 2 months-Dr. Seo can order this for you. Pending Studies at Discharge: Yes (Final blood and sputum culture results) Stand-Alone Forms: [facility], Smoking Cessation Medications and DC Order Prescriptions: New doxycycline hyclate 100 mg Capsule 100 mg PO BID Qty: 9 0RF formoterol fumarate [Perforomist] 20 mcg/2 mL Solution For Nebulization 20 mcg inhalation BIDR Qty: 120 0RF sodium chloride 7 % Solution For Nebulization 4 ml NEB BIDR Qty: 240 0RF budesonide 0.5 mg/2 mL Suspension For Nebulization 0.5 mg NEB BIDR Qty: 120 0RF Incruse Ellipta 62.5 mcg/actuation blister with device 1 inh inhalation DAILY Qty: 30 0RF amoxicillin-pot clavulanate 875-125 mg tablet 1 tab PO BID Qty: 6 0RF Continued ropinirole 0.5 mg tablet 0.5 mg PO PM Qty: 90 3RF (DME) nebulizers Misc See Rx Instructions .Route Qty: 1 0RF Rx Instructions: please include accessories. betamethasone dipropionate 0.05 % cream 1 applic topical BID PRN (Reason: skin irritation) Qty: 15 3RF metoprolol succinate [Toprol XL] 50 mg tablet extended release 24 hr 50 mg PO QAM Qty: 90 3RF levocetirizine 5 mg tablet 5 mg PO DAILY PRN (Reason: Allergy Symptoms) Qty: 90 3RF Rx Instructions: Take daily for 10 days then PRN atorvastatin 10 mg tablet 10 mg PO HS Qty: 90 3RF ipratropium-albuterol 0.5 mg-3 mg(2.5 mg base)/3 mL solution for nebulization 3 ml INH QID PRN (Reason: shortness of breath or wheezing) Qty: 1080 1RF Rx Instructions: needs new script lorazepam 0.5 mg tablet 0.5 mg buccal DAILY Qty: 30 0RF Rx Instructions: Take one pill one hour prior to each radiation treatment. Magic Mouthwash 300 mL mouthwash 10 ml mucous membrane ACHS Qty: 300 4RF (DME) Oxygen Home Liters Per Minute See Rx Instructions .Route Rx Instructions: 3L continuous via NC, ok to titrate up to 5L with activity, (09/17/2022) Per patient he is using 2 liters at this time. benzonatate 200 mg capsule 200 mg PO TID PRN (Reason: cough) Qty: 20 4RF triamcinolone acetonide 0.025 % ointment 1 applic topical PRN albuterol sulfate 90 mcg/actuation HFA aerosol inhaler 2 puff INH Q4H PRN (Reason: shortness of breath or wheezing) Qty: 3 1RF (DME) Portable Oxygen Misc See Rx Instructions .MEDSUPPLY Qty: 1 0RF Rx Instructions: Oxygen 4 liters continuous via nasal cannula on exertion with portable concentrator. TERRANCE 99 meclizine 25 mg tablet See Rx Instructions PO TID PRN (Reason: dizziness or vertigo) Qty: 30 1RF Rx Instructions: 1/2 to 1 tab PO TID PRN; aspirin [Adult Low Dose Aspirin] 81 mg tablet,delayed release (DR/EC) 81 mg PO QPM Saccharomyces boulardii [Florastor] 250 mg capsule 250 mg PO BID Qty: 60 2RF multivitamin Tablet 1 tab PO QAM guaifenesin [Mucinex] 1,200 mg Tablet Extended Release 12hr 1,200 mg PO BID tamsulosin 0.4 mg capsule 0.4 mg PO QAM cholecalciferol (vitamin D3) [Vitamin D3] 25 mcg (1,000 unit) Tablet 25 mcg PO DAILY Changed prednisone 10 mg tablet 20 mg PO DAILY 3 Days Qty: 6 0RF nystatin 100,000 unit/mL suspension 5 ml PO QID 10 Days Qty: 160 0RF Rx Instructions: swish in mouth, retain as long as possible before swallowing Held azithromycin 250 mg tablet 250 mg PO .COMPLEX Qty: 36 3RF Hold Instructions: Resume on 01/30/24. Hold until you are done taking the doxycycline Rx Instructions: 250 mg PO 1 tab p.o. on Beical-Fttyuofbh-Zwevwz; Discontinued Trelegy Ellipta 200-62.5-25 mcg blister with device 1 inh inhalation QAM Qty: 3 3RF Discharge Orders: Discharge Order (Routine); Ordered 01/25/24 Ordered By: Arlene Gonzalez Admission Data Admit Date/Time: 01/21/24 23:43 Attending Provider: Arlene Gonzalez Admit Provider: Fely Yeh Primary Care Provider: Aggie Mccollum Other Providers: Fely Yeh; Colt Seo Hospital Stay Data Consultations 01/21/24 23:02 ED Decision to Admit Stat 01/23/24 15:29 Consult Pulmonology Routine Pending Results Patient Have Any Pending Studies at Discharge: Yes (Final blood and sputum culture results) Discharge Instructions Given to Patient (Per Discharging Provider) Please finish out the course of antibiotics and prednisone for your pneumonia and COPD exacerbation. Continue on the saline nebulizer treatments as well, twice a day along with your new budesonide and Brovana nebulizer treatments twice a day. You can use the albuterol/ipratropium in between his treatments as needed for cough or wheezing. Continue the nystatin swish and swallow for your oral thrush for 2 weeks and you can use Magic mouthwash as needed for pain associated with the radiation to your tongue. You will be started on a new inhaler called Incruse and your Trelegy will be discontinued. A vibration vest is being arranged for you through the medical case worker and the supervisor [employer]. You will need a follow-up CT scan of the chest in about 2 months-Dr. Seo can order this for you. Total Time Total Time Spent Total Time Spent (In Minutes): 35 minutes Total Time Includes: Examination of the Patient, Discharge Planning, Medication Reconciliation and Communication With Other Providers (Pulmonology) Coding Level of Care Code 30846 INP/OBS DISCH >30 MIN Diagnoses Acute on chronic respiratory failure with hypoxia J96.21 Pneumonia J18.9 Cancer of ventral surface of tongue C02.2 Oral candidiasis B37.0 Chronic obstructive pulmonary disease, unspecified COPD type J44.9 COPD type: unspecified COPD
[2024-01-25 13:37] VITALS: BP 106/60
== END 2024-01-25 14:07 | disposition home or self-care (01) | DRG 193 ==
LOC: ED 21:36 → SUATTDRO 23:43 → 4W 23:43

== ENCOUNTER 2024-02-01 15:35 | Inpatient (IN) ==
--- NOTE | 2024-02-01 15:59 | Emergency Department Note ---
History of Present Illness General Chief Complaint: Shortness of Breath/Dyspnea Stated Complaint: SOB, CHEST PAIN Time Seen by Provider: 02/01/24 15:48 History of Present Illness Provider Complaint: shortness of breath, cough and chest pain Onset (ago): week(s) (1) Consistency/Duration: + progressively worsening Relieved By: + oxygen Exacerbated By: + exertion and + coughing Context: + recent illness Known history of: COPD Associated symptoms: + chest pain, + cough, + sputum production and + chest congestion; no fever or no hemoptysis Related Data Home oxygen amount: 3 liters Home Medications Medication Instructions Recorded Confirmed Type multivitamin 1 tab PO QAM 02/11/18 02/01/24 History aspirin 81 mg tablet,delayed 81 mg PO QAM 06/09/21 02/01/24 History release (Adult Low Dose Aspirin) guaifenesin 1,200 mg tablet, 1,200 mg PO BID 09/15/22 02/01/24 History extended release 12 hr (Mucinex) tamsulosin 0.4 mg capsule 0.4 mg PO QAM 09/15/22 02/01/24 History Oxygen Home 09/17/22 02/01/24 History ropinirole 0.5 mg tablet 0.5 mg PO PM #90 tabs 02/15/23 02/01/24 Rx nebulizers #1 ea 04/15/23 02/01/24 Rx betamethasone dipropionate 0.05 % 1 applic topical BID PRN skin 04/21/23 02/01/24 Rx topical cream irritation #15 grams Portable Oxygen #1 ea 06/21/23 02/01/24 Rx atorvastatin 10 mg tablet 10 mg PO HS #90 tabs 09/02/23 02/01/24 Rx levocetirizine 5 mg tablet 5 mg PO DAILY PRN Allergy Symptoms 09/02/23 02/01/24 Rx #90 tabs metoprolol succinate 50 mg 50 mg PO QAM #90 tabs 09/02/23 02/01/24 Rx tablet,extended release 24 hr (Toprol XL) ipratropium 0.5 mg-albuterol 3 mg 3 ml inhalation QID PRN shortness 12/28/23 02/01/24 Rx (2.5 mg base)/3 mL nebulization of breath or wheezing #1,080 vials soln lorazepam 0.5 mg tablet 0.5 mg buccal DAILY anxiety #30 01/16/24 02/01/24 Rx tabs cholecalciferol (vitamin D3) 25 25 mcg PO DAILY 01/21/24 02/01/24 History mcg (1,000 unit) tablet (Vitamin D3) budesonide 0.5 mg/2 mL suspension 0.5 mg (2 mL) NEB BIDR #120 mL 01/25/24 02/01/24 Rx for nebulization formoterol fumarate 20 mcg/2 mL 20 mcg (2 mL) inhalation BIDR #120 01/25/24 02/01/24 Rx solution for nebulization mL (Perforomist) sodium chloride 7 % for 4 ml NEB BIDR #240 mL 01/25/24 02/01/24 Rx nebulization Vibration Vest #1 ea 02/01/24 02/01/24 Rx azithromycin 250 mg tablet 250 mg PO 3XWK 02/01/24 02/01/24 History chlorhexidine gluconate 0.12 % See Rx Instructions .Route .COMPLEX 02/01/24 02/01/24 History mouthwash umeclidinium 62.5 mcg/actuation 1 inh inhalation QAM 02/01/24 02/01/24 History blister powder for inhalation (Incruse Ellipta) Allergies Allergy/AdvReac Type Severity Reaction Status Date / Time diltiazem Allergy Intermediate REDNESS Verified 01/30/24 15:13 "MADE ME LOOK LIKE A STRAWBERRY" bee venom protein (honey bee) Allergy Unknown LOCAL Verified 01/30/24 15:13 SWELLING Past Med/Surg History Problem List (Updated 02/01/24 @ 19:41 by Frank Fernandez MD) Parainfluenza (Acute) Pneumonia (Acute) Acute hyponatremia (Acute) Bronchiectasis Chronic bronchitis Oral candidiasis Hypophosphatemia Pneumonia (Acute) Acute on chronic respiratory failure with hypoxia (Acute) 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 "will bump up if needed" 2nd degree AV block (Chronic) Cardiomyopathy, nonischemic (Chronic) Enlarged prostate with lower urinary tract symptoms (LUTS) (Chronic) Hearing difficulty (Chronic) Idiopathic progressive polyneuropathy (Chronic) Lumbar back pain (Chronic) Peyronie's disease (Chronic) Sleep related hypoxia (Chronic) Solitary pulmonary nodule (Chronic) Medical History Dependence on continuous supplemental oxygen wears 1-3l nc cont as needed. "will bump up if needed" Polyneuropathy Periodic limb movement BPH (benign prostatic hyperplasia) History of foot ulcer resolved Elevated cholesterol Hx of Mobitz type I block pt reports tachycardia>reason for metoprolol Hyperlipidemia History of COVID-19 02/2023- hospitalized at [place] Vitamin D deficiency hx 2nd degree AV block follows w/ Dr Holloway DALIA (obstructive sleep apnea) uses 2 lpm HS Pulmonary nodule Arthritis History of anemia History of lung cancer RUL, s/p lobectomy - [facility], 2011>chemo and radiation H/O deep venous thrombosis 2011>when going through chemo (was on coumadin for years) Chronic respiratory failure with hypoxia follows w/ Dr Seo H/O testicular mass benign Restless leg syndrome Stage 4 very severe COPD by GOLD classification Surgical History History of surgery S/P right partial glossectomy;Right neck dissection;Placement of acellular dermal matrix graft on 11/29/23 Dr. Oliver H/O excision of mass right lateral tongue, nasopharyngeal scope, frozen section; 08/18/23 Dr Nawaf [place] History of surgery on lower extremity left (hardware intact) History of lumbar surgery laminectomy History of cystoscopy History of esophagogastroduodenoscopy (EGD) History of colonoscopy History of tooth extraction History of tonsillectomy History of lumbar laminectomy History of lung surgery RUE lobectomy r/t lung cancer Hx of fusion of cervical spine good rom Hx of cholecystectomy (1990) Family History Father Stroke syndrome Gallbladder disease Mother Gallbladder disease Lung disease Hypertension Cardiac disorder Congestive heart failure Brother Myocardial infarction Sister No problems noted. Denies family history of Ovarian cancer Prostate cancer Breast cancer Colorectal cancer Social History Smoking Status: Former smoker Tobacco Type: Cigarettes and Smokeless Tobacco (Dip or Chew) Age Started Using Tobacco: 18; Age Quit Using Tobacco: 56; packs per day: 1.5; Cigarettes Per Day: 20-30 per day; Second Hand Exposure: No; Do You Dip or Chew Tobacco: No; Hx Alcohol Use: No Hx Substance Use: No Preferred Language: Syriac Communication Ability: Effective Visual Impairment: Limited Hearing Ability: Use of Hearing Aid Top Executive Required: No Beliefs That Will Affect Care: None marital status: Current Living Situation: Spouse Current Living Situation Comment: single story home current occupational status: employed and retired 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, 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 How many Children do You have: 5 Feels Safe at Home: Yes Childhood Exposure to Second-Hand Smoke: Yes Diet: regular Diet Comment: regular Dental Care, Regularly: No Physical Activity Frequency: Does not Exercise Seatbelt Use: never Sunscreen Use: No Assistive Devices: Cane, Crutches, Oxygen - Continuous and Walker Physical Exam 2 Vital Signs: Vital Signs - 24 hr 02/01/24 15:36 02/01/24 15:51 02/01/24 16:09 Temperature 36.5 C Temperature Source Temporal Artery Sc an Pulse Rate 116 H 111 H Pulse Rate [Apical ] Pulse Rate from Sp O2 Sensor Respiratory Rate 17 Blood Pressure 105/44 L Blood Pressure [Le ft Arm] Blood Pressure Daphney n 64 Blood Pressure Daphney n [Left Arm] Pulse Oximetry 89 L 96 Oxygen Delivery Me thod Nasal Cannula Nasal Cannula Oxygen Flow Rate 5 Sepsis Recent Feve r Within 48 Hours No Sepsis New/Unexpla ined Change in Men sydnie Status N/A Sepsis Action Take n by Nursing No Action Required Oxygen Flow Rate - Titration 6 02/01/24 16:30 02/01/24 16:39 02/01/24 16:45 Temperature Temperature Source Pulse Rate 120 H 120 H Pulse Rate [Apical ] Pulse Rate from Sp O2 Sensor 121 H 111 H Respiratory Rate 24 20 Blood Pressure 126/74 Blood Pressure [Le ft Arm] Blood Pressure Daphney n 83 Blood Pressure Daphney n [Left Arm] Pulse Oximetry 96 97 Oxygen Delivery Me thod Oxygen Flow Rate Sepsis Recent Feve r Within 48 Hours Sepsis New/Unexpla ined Change in Men sydnie Status Sepsis Action Take n by Nursing Oxygen Flow Rate - Titration 02/01/24 16:51 02/01/24 17:00 02/01/24 17:00 Temperature Temperature Source Pulse Rate 120 H 119 H Pulse Rate [Apical ] Pulse Rate from Sp O2 Sensor 120 H 114 H Respiratory Rate 20 22 Blood Pressure 129/50 L Blood Pressure [Le ft Arm] Blood Pressure Daphney n 74 Blood Pressure Daphney n [Left Arm] Pulse Oximetry 97 97 Oxygen Delivery Me thod Oxygen Flow Rate Sepsis Recent Feve r Within 48 Hours Sepsis New/Unexpla ined Change in Men sydnie Status Sepsis Action Take n by Nursing Oxygen Flow Rate - Titration 02/01/24 17:00 02/01/24 17:39 02/01/24 17:42 Temperature Temperature Source Pulse Rate 115 H Pulse Rate [Apical ] Pulse Rate from Sp O2 Sensor 115 H Respiratory Rate 22 Blood Pressure 129/50 L 94/61 L Blood Pressure [Le ft Arm] Blood Pressure Daphney n 74 66 Blood Pressure Daphney n [Left Arm] Pulse Oximetry 96 Oxygen Delivery Me thod Oxygen Flow Rate Sepsis Recent Feve r Within 48 Hours Sepsis New/Unexpla ined Change in Men sydnie Status Sepsis Action Take n by Nursing Oxygen Flow Rate - Titration 02/01/24 17:51 02/01/24 18:00 02/01/24 18:00 Temperature Temperature Source Pulse Rate 114 H 112 H Pulse Rate [Apical ] Pulse Rate from Sp O2 Sensor 114 H 113 H Respiratory Rate 20 20 Blood Pressure 108/62 Blood Pressure [Le ft Arm] Blood Pressure Daphney n 73 Blood Pressure Daphney n [Left Arm] Pulse Oximetry 96 97 Oxygen Delivery Me thod Oxygen Flow Rate Sepsis Recent Feve r Within 48 Hours Sepsis New/Unexpla ined Change in Men sydnie Status Sepsis Action Take n by Nursing Oxygen Flow Rate - Titration 02/01/24 18:12 02/01/24 18:27 02/01/24 18:30 Temperature Temperature Source Pulse Rate 115 H 109 H 109 H Pulse Rate [Apical ] Pulse Rate from Sp O2 Sensor 115 H 108 H 109 H Respiratory Rate 24 20 20 Blood Pressure Blood Pressure [Le ft Arm] Blood Pressure Daphney n Blood Pressure Daphney n [Left Arm] Pulse Oximetry 95 97 97 Oxygen Delivery Me thod Oxygen Flow Rate Sepsis Recent Feve r Within 48 Hours Sepsis New/Unexpla ined Change in Men sydnie Status Sepsis Action Take n by Nursing Oxygen Flow Rate - Titration 02/01/24 18:31 02/01/24 19:25 Temperature 36.9 C Temperature Source Oral Pulse Rate Pulse Rate [Apical ] 107 H Pulse Rate from Sp O2 Sensor Respiratory Rate 26 H Blood Pressure 124/47 L Blood Pressure [Le ft Arm] 113/56 L Blood Pressure Daphney n 91 Blood Pressure Daphney n [Left Arm] 75 Pulse Oximetry 95 Oxygen Delivery Me thod Nasal Cannula Oxygen Flow Rate 3 Sepsis Recent Feve r Within 48 Hours Sepsis New/Unexpla ined Change in Men sydnie Status Sepsis Action Take n by Nursing Oxygen Flow Rate - Titration Physical Exam: Physical Exam GENERAL: oriented to person, place, and time. appears well-developed and well- nourished. HENT: Exam performed. - Head: Normocephalic and atraumatic. EYES: Conjunctivae and EOM are normal. Right eye exhibits no discharge. Left eye exhibits no discharge. No scleral icterus. NECK: Normal range of motion. Neck supple. No JVD present. CV: Tachycardic rate, regular rhythm, normal heart sounds and intact distal pulses. There is no peripheral edema. Palpable radial pulses bue. PULM/CHEST: Tachypneic. Scant expiratory wheezes bilaterally. ABD: The abdomen is soft. There is no tenderness. NEURO: Motor and sensation grossly intact. SKIN: Skin is warm and dry. He is not diaphoretic. PSYCH: normal mood and affect. Behavior is normal. Judgment and thought content normal. Course Course 1548: The patient was evaluated in room C1. A complete history and physical exam was performed Cardiac monitoring: An order was placed for continuous cardiac monitoring. The monitor shows a rate of 120 with sinus tachycardia rhythm interpreted by me 1655: Vital signs stable. Patient still having wheezing. Labs show sodium 126. Patient not having seizure-like activity. Gentle hydration started on the patient. D-dimer elevated. Will obtain CT of the chest. 193: Vital signs stable on supplemental oxygen. Patient is positive for parainfluenza virus. CTA shows no PE but shows multifocal pneumonia. Zosyn ordered for the patient. Patient will be admitted Administered Medications Sodium Chloride (Nss) 1,000 mls @ 80 mls/hr IV .[id number] [facility] Stop: 02/02/24 17:14 Last Admin: 02/01/24 17:44 Dose: 80 mls/hr Documented By: VME Discontinued Medications Albuterol (Albut/Ipratrop 3mg/0.5mg Neb 3 Ml Vial) 3 ml NEB NOW STA; Protocol Stop: 02/01/24 16:05 Last Admin: 02/01/24 16:20 Dose: 3 ml Documented By: MONIK Albuterol (Albut/Ipratrop 3mg/0.5mg Neb 3 Ml Vial) 3 ml NEB NOW STA; Protocol Stop: 02/01/24 16:05 Last Admin: 02/01/24 16:30 Dose: 3 ml Documented By: MONIK Piperacillin Sod/Tazobactam Sod (Zosyn) 4.5 gm in 120 mls @ 240 mls/hr IV NOW ONE Stop: 02/01/24 18:17 Last Admin: 02/01/24 18:02 Dose: 240 mls/hr Documented By: YVONNE Ioversol (Optiray 320 125ml) 119 ml IV ONCE ONE Stop: 02/01/24 17:28 Last Admin: 02/01/24 17:28 Dose: 119 ml Documented By: SHIRLEY Methylprednisolone (Methylprednisolone 125 Mg/2 Ml Vial) 125 mg IV NOW STA Stop: 02/01/24 16:05 Last Admin: 02/01/24 16:20 Dose: 125 mg Documented By: MONIK Medical Decision Making Laboratory Data Attestation: I reviewed the patient's lab results. 02/01/24 15:51 02/01/24 15:51 Lab Results 02/01/24 02/01/24 02/01/24 Range/Units 15:51 16:05 16:10 WBC 10.08 (4.8-10.8) K/ul RBC 4.08 L (4.70-6.10) M/uL Hgb 11.7 L (14.0-18.0) g/dl Hct 35.0 L (42.0-52.0) % MCV 85.8 (80.0-100.0) fL MCH 28.7 (25.0-34.0) pg MCHC 33.4 (32.0-36.0) g/dL RDW Std Deviation 40.9 (36.4-46.3) fL RDW Coeff of Dinesh 13.1 (11.5-14.5) % Plt Count 153 (130-400) K/uL MPV 10.1 (9.4-12.4) fL Immature Gran % (Auto) 0.6 % Neut % (Auto) 82.7 % Lymph % (Auto) 6.1 % [place] % (Auto) 10.3 % Eos % (Auto) 0.2 % Baso % (Auto) 0.1 % Neut # (Auto) 8.34 H (1.40-6.50) K/uL Lymph # (Auto) 0.61 L (1.20-3.40) K/uL [place] # (Auto) 1.04 H (0.11-0.59) K/uL Eos # (Auto) 0.02 (0.00-0.50) K/uL Baso # (Auto) 0.01 (0.00-0.20) K/uL Immature Gran # (Auto) 0.06 (0.01-0.20) K/uL PT 11.6 (9.0-12.0) Seconds INR 1.1 (0.9-1.1) APTT 29 (21-31) Seconds PTT Ratio 1.1 D-Dimer 3100 H* (0-500) ug/L FEU VBG pH 7.41 (7.36-7.41) VBG pCO2 51 H (38-50) mmHg VBG pO2 27 mmHg VBG HCO3 32 mmol/L VBG O2 Saturation < 60.0 % VBG Base Excess 6.3 mEq/L Sodium 126 L (136-145) mmol/L Potassium 4.2 (3.5-5.1) mmol/L Chloride 88 L (98-107) mmol/L Carbon Dioxide 32 (21-32) mmol/L Anion Gap 6 (3-11) BUN 10 (6-23) mg/dl Creatinine 0.93 (0.6-1.4) mg/dl Est Cr Clr Drug Dosing 96.1 ml/min eGFR 89.44 BUN/Creatinine Ratio 10.8 (10-20) Glucose 107 H (70-99(Fasting)) mg/dl Lactate (0.4-2.0) mmol/L Calcium 8.7 (8.6-10.3) mg/dl Magnesium 2.1 (1.7-2.4) mg/dl Troponin I High Sens 13.0 (0-20) pg/ml B-Natriuretic Peptide 51 (0-100) pg/ml Procalcitonin 0.04 (0-0.5) ng/ml Adenovirus (PCR) Not Detected (NotDetected) B. pertussis DNA (PCR) Not Detected (NotDetected) B.parapertussis DNA PCR Not Detected (NotDetected) C. pneumoniae DNA (PCR) Not Detected (NotDetected) Coronavirus OC43 (PCR) Not Detected (NotDetected) Coronavirus HKU1 (PCR) Not Detected (NotDetected) Coronavirus 229E (PCR) Not Detected (NotDetected) SARS-CoV-2 (PCR) Not Detected (NotDetected) Coronavirus NL63 (PCR) Not Detected (NotDetected) Human Metapneumovir PCR Not Detected (NotDetected) Influenza Type A (PCR) Not Detected (NotDetected) Influenza Type B (PCR) Not Detected (NotDetected) M. pneumoniae (PCR) Not Detected (NotDetected) Parainfluenza 1 (PCR) Not Detected (NotDetected) Parainfluenza 2 (PCR) Not Detected (NotDetected) Parainfluenza 3 (PCR) Not Detected (NotDetected) Parainfluenza 4 (PCR) DETECTED A (NotDetected) RSV (PCR) Not Detected (NotDetected) Entero/Rhino (PCR) Not Detected (NotDetected) 02/01/24 Range/Units 16:29 WBC (4.8-10.8) K/ul RBC (4.70-6.10) M/uL Hgb (14.0-18.0) g/dl Hct (42.0-52.0) % MCV (80.0-100.0) fL MCH (25.0-34.0) pg MCHC (32.0-36.0) g/dL RDW Std Deviation (36.4-46.3) fL RDW Coeff of Dinesh (11.5-14.5) % Plt Count (130-400) K/uL MPV (9.4-12.4) fL Immature Gran % (Auto) % Neut % (Auto) % Lymph % (Auto) % [place] % (Auto) % Eos % (Auto) % Baso % (Auto) % Neut # (Auto) (1.40-6.50) K/uL Lymph # (Auto) (1.20-3.40) K/uL [place] # (Auto) (0.11-0.59) K/uL Eos # (Auto) (0.00-0.50) K/uL Baso # (Auto) (0.00-0.20) K/uL Immature Gran # (Auto) (0.01-0.20) K/uL PT (9.0-12.0) Seconds INR (0.9-1.1) APTT (21-31) Seconds PTT Ratio D-Dimer (0-500) ug/L FEU VBG pH (7.36-7.41) VBG pCO2 (38-50) mmHg VBG pO2 mmHg VBG HCO3 mmol/L VBG O2 Saturation % VBG Base Excess mEq/L Sodium (136-145) mmol/L Potassium (3.5-5.1) mmol/L Chloride (98-107) mmol/L Carbon Dioxide (21-32) mmol/L Anion Gap (3-11) BUN (6-23) mg/dl Creatinine (0.6-1.4) mg/dl Est Cr Clr Drug Dosing ml/min eGFR BUN/Creatinine Ratio (10-20) Glucose (70-99(Fasting)) mg/dl Lactate 0.9 (0.4-2.0) mmol/L Calcium (8.6-10.3) mg/dl Magnesium (1.7-2.4) mg/dl Troponin I High Sens (0-20) pg/ml B-Natriuretic Peptide (0-100) pg/ml Procalcitonin (0-0.5) ng/ml Adenovirus (PCR) (NotDetected) B. pertussis DNA (PCR) (NotDetected) B.parapertussis DNA PCR (NotDetected) C. pneumoniae DNA (PCR) (NotDetected) Coronavirus OC43 (PCR) (NotDetected) Coronavirus HKU1 (PCR) (NotDetected) Coronavirus 229E (PCR) (NotDetected) SARS-CoV-2 (PCR) (NotDetected) Coronavirus NL63 (PCR) (NotDetected) Human Metapneumovir PCR (NotDetected) Influenza Type A (PCR) (NotDetected) Influenza Type B (PCR) (NotDetected) M. pneumoniae (PCR) (NotDetected) Parainfluenza 1 (PCR) (NotDetected) Parainfluenza 2 (PCR) (NotDetected) Parainfluenza 3 (PCR) (NotDetected) Parainfluenza 4 (PCR) (NotDetected) RSV (PCR) (NotDetected) Entero/Rhino (PCR) (NotDetected) Imaging Data Radiologist's Impression: Chest X-Ray 02/01/24 15:58 EXAM: Radiograph of the Chest 1 View INDICATION: Shortness of breath and chest pain. TECHNIQUE: Frontal view of the chest. COMPARISON: 01/21/2024 FINDINGS: Lungs and pleural spaces: Stable bullous emphysema. There is increased patchy airspace disease superimposed on chronic scarring in the left base. Stable scarring throughout the right lung. No pleural effusion or pneumothorax. Heart: Shape and configuration within normal limits allowing for technique. Mediastinum: Normal contour. Bones/joints: No fracture, erosion or dislocation. Soft tissues: No abnormality noted. No radiopaque foreign body noted. Upper abdomen: No abnormality noted. IMPRESSION: Patchy left basilar bronchitis and mild pneumonia superimposed on generalized chronic changes. ACT 112: Negative or not required by law. Electronically signed by Allie Aleman 02-01-2024 4:37 PM Chest CTA 02/01/24 16:53 EXAM: CT Angiography Chest With Intravenous Contrast INDICATION: Dyspnea, worsening cough, increased oxygen requirement and right sided chest pain. TECHNIQUE: Axial computed tomographic angiography images of the chest with intravenous contrast. Sagittal and coronal reformatted images were created and reviewed. This CT exam was performed using one or more of the following dose reduction techniques: automated exposure control, adjustment of the mA and/or kV according to patient size, and/or use of iterative reconstruction technique. MIP reconstructed images were created and reviewed. CONTRAST: 119 ml of Optiray 320 was administered intravenously. COMPARISON: No relevant prior studies available. FINDINGS: Limitations: The study is significantly degraded by respiratory motion. Significant abnormalities may not be detected. Pulmonary arteries: No pulmonary embolus noted in the main pulmonary trunk or either main artery. Small pulmonary emboli more distally difficult to exclude allowing for significant motion. Aorta: No acute change noted. No thoracic aortic aneurysm or dissection. Lungs and pleural spaces: Bullous emphysematous changes noted. There is bronchiectasis and consolidation in the lingula. There is peribronchial infiltrate within the right upper and lower lobes. No significant pleural effusion. No pneumothorax. Heart: No abnormality noted. No cardiomegaly. No significant pericardial effusion. No evidence of RV dysfunction. Bones/joints: No acute or atypical chronic changes. Soft tissues: No abnormality noted. Lymph nodes: No abnormality noted. No enlarged lymph nodes. Gallbladder and bile ducts: Cholecystectomy. IMPRESSION: 1. Significantly limited exam due to motion. 2. Emphysema with multifocal bilateral pneumonia and associated lingular bronchiectasis. 3. No pulmonary embolus noted in the main pulmonary trunk or arteries. Assessment otherwise limited. ACT 112: Negative or not required by law. Electronically signed by Allie Aleman 02-01-2024 5:45 PM ECG Data Attestation: I personally reviewed and interpreted this ECG as follows: Interpretation: Sinus tachycardia with a rate of 118. OK QRS and QTc intervals within normal limits. No ST elevation or ST depression. [facility] Narrative 1548: The patient was evaluated in room C1. A complete history and physical exam was performed Cardiac monitoring: An order was placed for continuous cardiac monitoring. The monitor shows a rate of 120 with sinus tachycardia rhythm interpreted by me 1655: Vital signs stable. Patient still having wheezing. Labs show sodium 126. Patient not having seizure-like activity. Gentle hydration started on the patient. D-dimer elevated. Will obtain CT of the chest. 1935: Vital signs stable on supplemental oxygen. Patient is positive for parainfluenza virus. CTA shows no PE but shows multifocal pneumonia. Zosyn ordered for the patient. Patient will be admitted Impression & Plan Acute hyponatremia, Pneumonia, Parainfluenza Discharge Plan Visit Data Chief Complaint: Shortness of Breath/Dyspnea Stated Complaint: SOB, CHEST PAIN ED Provider: Frank Fernandez Discharge Problem: Acute hyponatremia, Pneumonia, Parainfluenza Patient Disposition: Admitted As Inpatient Forms Stand Alone Forms: My [facility] [employer] Prescriptions Prescriptions: No Action ropinirole 0.5 mg tablet 0.5 mg PO PM Qty: 90 3RF (DME) nebulizers Misc See Rx Instructions .Route Qty: 1 0RF Rx Instructions: please include accessories. betamethasone dipropionate 0.05 % cream 1 applic topical BID PRN (Reason: skin irritation) Qty: 15 3RF metoprolol succinate [Toprol XL] 50 mg tablet extended release 24 hr 50 mg PO QAM Qty: 90 3RF levocetirizine 5 mg tablet 5 mg PO DAILY PRN (Reason: Allergy Symptoms) Qty: 90 3RF Rx Instructions: Take daily for 10 days then PRN atorvastatin 10 mg tablet 10 mg PO HS Qty: 90 3RF ipratropium-albuterol 0.5 mg-3 mg(2.5 mg base)/3 mL solution for nebulization 3 ml INH QID PRN (Reason: shortness of breath or wheezing) Qty: 1080 1RF lorazepam 0.5 mg tablet 0.5 mg buccal DAILY Qty: 30 0RF Rx Instructions: Take one pill one hour prior to each radiation treatment. (DME) Oxygen Home Liters Per Minute See Rx Instructions .Route Rx Instructions: 3L continuous via NC, ok to titrate up to 5L with activity, (09/17/2022) Per patient he is using 2 liters at this time. (DME) Portable Oxygen Misc See Rx Instructions .MEDSUPPLY Qty: 1 0RF Rx Instructions: Oxygen 4 liters continuous via nasal cannula on exertion with portable concentrator. TERARNCE 99 aspirin [Adult Low Dose Aspirin] 81 mg tablet,delayed release (DR/EC) 81 mg PO QAM (DME) Vibration Vest Misc See Rx Instructions .Route Qty: 1 0RF Rx Instructions: As directed multivitamin Tablet 1 tab PO QAM guaifenesin [Mucinex] 1,200 mg Tablet Extended Release 12hr 1,200 mg PO BID tamsulosin 0.4 mg capsule 0.4 mg PO QAM cholecalciferol (vitamin D3) [Vitamin D3] 25 mcg (1,000 unit) Tablet 25 mcg PO DAILY formoterol fumarate [Perforomist] 20 mcg/2 mL Solution For Nebulization 20 mcg inhalation BIDR Qty: 120 0RF sodium chloride 7 % Solution For Nebulization 4 ml NEB BIDR Qty: 240 0RF budesonide 0.5 mg/2 mL Suspension For Nebulization 0.5 mg NEB BIDR Qty: 120 0RF Incruse Ellipta 62.5 mcg/actuation blister with device 1 inh inhalation QAM chlorhexidine gluconate 0.12 % mouthwash See Rx Instructions .ROUTE .COMPLEX Rx Instructions: SWISH AND SPIT 15 ML 4 TIMES A DAY; AFTER ALL 3 MEALS AND AT BEDTIME DO NOT SWALLOW azithromycin 250 mg tablet 250 mg PO [id number] Rx Instructions: 250 mg PO 1 tab p.o. on [id number]; Referrals Referrals: Aggie Mccollum MD [Primary Care Provider] - Discharge Problem: Pneumonia Qualifiers: Pneumonia type: due to unspecified organism Laterality: bilateral Lung location: unspecified part of lung Qualified Code(s): J18.9 - Pneumonia, unspecified organism
[2024-02-01 16:10] LABS: Basophils # (auto) 0.01 K/uL (0.00-0.20); Basophils % (auto) 0.1 %; Eosinophils # (auto) 0.02 K/uL (0.00-0.50); Eosinophils % (auto) 0.2 %; Hemoglobin 11.7 g/dl (14.0-18.0); Immature Granulocytes # (auto) 0.06 K/uL (0.01-0.20); Immature Granulocytes % (auto) 0.6 %; Lymphocytes # (auto) 0.61 K/uL (1.20-3.40); Lymphocytes % (auto) 6.1 %; Mean Corpuscular Hemoglobin 28.7 pg (25.0-34.0); Mean Corpuscular Hgb Conc 33.4 g/dL (32.0-36.0); Mean Corpuscular Volume 85.8 fL (80.0-100.0); Mean Platelet Volume 10.1 fL (9.4-12.4); Monocytes # (auto) 1.04 K/uL (0.11-0.59); Monocytes % (auto) 10.3 %; Neutrophils # (auto) 8.34 K/uL (1.40-6.50); Neutrophils % (auto) 82.7 %; Platelet Count 153 K/uL (130-400); RDW Coefficient of Variation 13.1 % (11.5-14.5); RDW Standard Deviation 40.9 fL (36.4-46.3); Red Blood Count 4.08 M/uL (4.70-6.10); White Blood Count 10.08 K/ul (4.8-10.8)
[2024-02-01] MEDS: methylPREDNISolone 125 MG/2 ML VIAL IV STA (16:20)
[2024-02-01] MEDS: ALBUT/IPRATROP 3MG/0.5MG NEB 3 ML VIAL NEB STA ×2 (16:20→16:30)
[2024-02-01 16:22] LABS: Base Excess VBG 6.3 mEq/L; HCO3 VBG 32 mmol/L; Oxygen Saturation VBG < 60.0 %; PCO2 VBG 51 mmHg (38-50); PO2 VBG 27 mmHg; pH VBG 7.41 (7.36-7.41)
[2024-02-01 16:26] LABS: BUN Creatinine Ratio 10.8 (10-20); Calcium 8.7 mg/dl (8.6-10.3); Creatinine Clr Calc Pharmacy 96.1 ml/min; Magnesium 2.1 mg/dl (1.7-2.4); Potassium 4.2 mmol/L (3.5-5.1)
--- NOTE | 2024-02-01 16:37 | XRay Report ---
EXAM: Radiograph of the Chest 1 View INDICATION: Shortness of breath and chest pain. TECHNIQUE: Frontal view of the chest. COMPARISON: 01/21/2024 FINDINGS: Lungs and pleural spaces: Stable bullous emphysema. There is increased patchy airspace disease superimposed on chronic scarring in the left base. Stable scarring throughout the right lung. No pleural effusion or pneumothorax. Heart: Shape and configuration within normal limits allowing for technique. Mediastinum: Normal contour. Bones/joints: No fracture, erosion or dislocation. Soft tissues: No abnormality noted. No radiopaque foreign body noted. Upper abdomen: No abnormality noted. IMPRESSION: Patchy left basilar bronchitis and mild pneumonia superimposed on generalized chronic changes. ACT 112: Negative or not required by law. Electronically signed by Allie Aleman 02-01-2024 4:37 PM
[2024-02-01 16:41] LABS: INR 1.1 (0.9-1.1); Partial Thromboplastin Ratio 1.1; Partial Thromboplastin Time 29 Seconds (21-31); Prothrombin Time 11.6 Seconds (9.0-12.0)
[2024-02-01 16:53] LABS: D Dimer 3100 ug/L FEU (0-500)
--- NOTE | 2024-02-01 16:56 | Electrocardiogram Report ---
Test Reason : Blood Pressure : */* mmHG Vent. Rate : 118 BPM Atrial Rate : 118 BPM P-R Int : 158 ms QRS Dur : 82 ms QT Int : 312 ms P-R-T Axes : 74 45 73 degrees QTcB Int : 437 ms Sinus tachycardia Otherwise normal ECG Confirmed by Thomas Claros ([id number]) on 02/01/2024 4:55:56 PM Referred By: Confirmed By: Thomas Claros
[2024-02-01 17:18] LABS: Adenovirus PCR Not Detected (NotDetected); Bordetella parapertussis PCR Not Detected (NotDetected); Bordetella pertussis PCR Not Detected (NotDetected); Chlamydia pneumoniae PCR Not Detected (NotDetected); Coronavirus 229E PCR Not Detected (NotDetected); Coronavirus CoV-2 (COVID19)PCR Not Detected (NotDetected); Coronavirus HKU1 PCR Not Detected (NotDetected); Coronavirus NL63 PCR Not Detected (NotDetected); Coronavirus OC43PCR Not Detected (NotDetected); Human Metapneumovirus PCR Not Detected (NotDetected); Influenza A PCR Not Detected (NotDetected); Influenza B PCR Not Detected (NotDetected); Mycoplasma pneumoniae PCR Not Detected (NotDetected); Parainfluenza Virus 1 PCR Not Detected (NotDetected); Parainfluenza Virus 2 PCR Not Detected (NotDetected); Parainfluenza Virus 3 PCR Not Detected (NotDetected); Parainfluenza Virus 4 PCR DETECTED (NotDetected); Respiratory Syncytial VirusPCR Not Detected (NotDetected); Rhinovirus/Enterovirus PCR Not Detected (NotDetected)
[2024-02-01] MEDS: OPTIRAY 320 125ml IV ONE (17:28)
[2024-02-01] MEDS: SODIUM CHLORIDE 0.9% 1,000 ML IV SCH (17:44)
--- NOTE | 2024-02-01 17:45 | CT Scan Report ---
EXAM: CT Angiography Chest With Intravenous Contrast INDICATION: Dyspnea, worsening cough, increased oxygen requirement and right sided chest pain. TECHNIQUE: Axial computed tomographic angiography images of the chest with intravenous contrast. Sagittal and coronal reformatted images were created and reviewed. This CT exam was performed using one or more of the following dose reduction techniques: automated exposure control, adjustment of the mA and/or kV according to patient size, and/or use of iterative reconstruction technique. MIP reconstructed images were created and reviewed. CONTRAST: 119 ml of Optiray 320 was administered intravenously. COMPARISON: No relevant prior studies available. FINDINGS: Limitations: The study is significantly degraded by respiratory motion. Significant abnormalities may not be detected. Pulmonary arteries: No pulmonary embolus noted in the main pulmonary trunk or either main artery. Small pulmonary emboli more distally difficult to exclude allowing for significant motion. Aorta: No acute change noted. No thoracic aortic aneurysm or dissection. Lungs and pleural spaces: Bullous emphysematous changes noted. There is bronchiectasis and consolidation in the lingula. There is peribronchial infiltrate within the right upper and lower lobes. No significant pleural effusion. No pneumothorax. Heart: No abnormality noted. No cardiomegaly. No significant pericardial effusion. No evidence of RV dysfunction. Bones/joints: No acute or atypical chronic changes. Soft tissues: No abnormality noted. Lymph nodes: No abnormality noted. No enlarged lymph nodes. Gallbladder and bile ducts: Cholecystectomy. IMPRESSION: 1. Significantly limited exam due to motion. 2. Emphysema with multifocal bilateral pneumonia and associated lingular bronchiectasis. 3. No pulmonary embolus noted in the main pulmonary trunk or arteries. Assessment otherwise limited. ACT 112: Negative or not required by law. Electronically signed by Allie Aleman 02-01-2024 5:45 PM
[2024-02-01] MEDS: PIPERACILLIN/TAZOBACTAM 4.5 GM/120 ML BAG IV ONE (18:02)
--- NOTE | 2024-02-01 20:39 | History & Physical Report ---
Date of Service February 01, 2024 Assessment & Plan (1) Parainfluenza: (2) Pneumonia: (3) Acute hyponatremia: (4) Oral candidiasis: Plan Multifocal bacterial pneumonia/secondary to underlying parainfluenza type IV/COPD exacerbation- Acute respiratory failure with hypoxia From the ED received the following: DuoNeb x 2, Solu-Medrol 125 mg IV, and Zosyn 4.5 g IV Solu-Medrol 40 IV every 12 hours Zosyn 4.5 g IV every 8 hours DuoNebs every 2 hours as needed Continue Pulmicort Respules Nasal cannula oxygen, titrate to keep pulse ox 92% Continue routine nebulizers and inhalers Continue Mucinex Oral candidiasis/recurrent thrush- Failure of swish and spit Fluconazole 200 mg IV daily, first dose now Clotrimazole troches 5 times per day for 5 days Acute hyponatremia- Sodium 126 upon admission Has had decreased oral intake over the past week Repeat laboratories in a.m. Nonischemic cardiomyopathy/hypertension- Decrease metoprolol succinate from 50 to 25 mg every morning, with hold parameters due to relative hypotension History of Present Illness Chief Complaint: The patient presents to the emergency department worsening shortness of breath over the past week, accompanied by intermittently productive cough, and generalized fatigue. Primary Care Provider: Aggie Mccollum MD The patient is a 68-year-old male with past medical history including chronic bronchitis, acute on chronic respiratory failure, cancer of the ventral surface of the tongue, COPD, thrush, DALIA, nonischemic cardiomyopathy and BPH with LUTS. He presents to the emergency department with worsening shortness of breath and generalized fatigue over the past week as noted above. Significant testing in emergency department shows a sodium 126, BioFire test positive for parainfluenza type IV Allergies Allergy/AdvReac Type Severity Reaction Status Date / Time diltiazem Allergy Intermediate REDNESS Verified 01/30/24 15:13 "MADE ME LOOK LIKE A STRAWBERRY" bee venom protein (honey bee) Allergy Unknown LOCAL Verified 01/30/24 15:13 SWELLING Home Medications Medication Instructions Recorded Confirmed Type multivitamin 1 tab PO QAM 02/11/18 02/01/24 History aspirin 81 mg tablet,delayed 81 mg PO QAM 06/09/21 02/01/24 History release (Adult Low Dose Aspirin) guaifenesin 1,200 mg tablet, 1,200 mg PO BID 09/15/22 02/01/24 History extended release 12 hr (Mucinex) tamsulosin 0.4 mg capsule 0.4 mg PO QAM 09/15/22 02/01/24 History Oxygen Home 09/17/22 02/01/24 History ropinirole 0.5 mg tablet 0.5 mg PO PM #90 tabs 02/15/23 02/01/24 Rx nebulizers #1 ea 04/15/23 02/01/24 Rx betamethasone dipropionate 0.05 % 1 applic topical BID PRN skin 04/21/23 02/01/24 Rx topical cream irritation #15 grams Portable Oxygen #1 ea 06/21/23 02/01/24 Rx atorvastatin 10 mg tablet 10 mg PO HS #90 tabs 09/02/23 02/01/24 Rx levocetirizine 5 mg tablet 5 mg PO DAILY PRN Allergy Symptoms 09/02/23 02/01/24 Rx #90 tabs metoprolol succinate 50 mg 50 mg PO QAM #90 tabs 09/02/23 02/01/24 Rx tablet,extended release 24 hr (Toprol XL) ipratropium 0.5 mg-albuterol 3 mg 3 ml inhalation QID PRN shortness 12/28/23 02/01/24 Rx (2.5 mg base)/3 mL nebulization of breath or wheezing #1,080 vials soln lorazepam 0.5 mg tablet 0.5 mg buccal DAILY anxiety #30 01/16/24 02/01/24 Rx tabs cholecalciferol (vitamin D3) 25 25 mcg PO DAILY 01/21/24 02/01/24 History mcg (1,000 unit) tablet (Vitamin D3) budesonide 0.5 mg/2 mL suspension 0.5 mg (2 mL) NEB BIDR #120 mL 01/25/24 02/01/24 Rx for nebulization formoterol fumarate 20 mcg/2 mL 20 mcg (2 mL) inhalation BIDR #120 01/25/24 02/01/24 Rx solution for nebulization mL (Perforomist) sodium chloride 7 % for 4 ml NEB BIDR #240 mL 01/25/24 02/01/24 Rx nebulization Vibration Vest #1 ea 02/01/24 02/01/24 Rx azithromycin 250 mg tablet 250 mg PO 3XWK 02/01/24 02/01/24 History chlorhexidine gluconate 0.12 % See Rx Instructions .Route .COMPLEX 02/01/24 02/01/24 History mouthwash umeclidinium 62.5 mcg/actuation 1 inh inhalation QAM 02/01/24 02/01/24 History blister powder for inhalation (Incruse Ellipta) Past Med/Surg History Problem List (Updated 02/01/24 @ 19:41 by Frank Fernandez MD) Parainfluenza (Acute) Pneumonia (Acute) Acute hyponatremia (Acute) Bronchiectasis Chronic bronchitis Oral candidiasis Hypophosphatemia Pneumonia (Acute) Acute on chronic respiratory failure with hypoxia (Acute) 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 "will bump up if needed" 2nd degree AV block (Chronic) Cardiomyopathy, nonischemic (Chronic) Enlarged prostate with lower urinary tract symptoms (LUTS) (Chronic) Hearing difficulty (Chronic) Idiopathic progressive polyneuropathy (Chronic) Lumbar back pain (Chronic) Peyronie's disease (Chronic) Sleep related hypoxia (Chronic) Solitary pulmonary nodule (Chronic) Medical History Dependence on continuous supplemental oxygen wears 1-3l nc cont as needed. "will bump up if needed" Polyneuropathy Periodic limb movement BPH (benign prostatic hyperplasia) History of foot ulcer resolved Elevated cholesterol Hx of Mobitz type I block pt reports tachycardia>reason for metoprolol Hyperlipidemia History of COVID-19 02/2023- hospitalized [place] Vitamin D deficiency hx 2nd degree AV block follows w/ Dr Holloway DALIA (obstructive sleep apnea) uses 2 lpm HS Pulmonary nodule Arthritis History of anemia History of lung cancer RUL, s/p lobectomy - [facility], 2011>chemo and radiation H/O deep venous thrombosis 2011>when going through chemo (was on coumadin for years) Chronic respiratory failure with hypoxia follows w/ Dr Seo H/O testicular mass benign Restless leg syndrome Stage 4 very severe COPD by GOLD classification Surgical History History of surgery S/P right partial glossectomy;Right neck dissection;Placement of acellular dermal matrix graft on 11/29/23 Dr. Oliver H/O excision of mass right lateral tongue, nasopharyngeal scope, frozen section; 08/18/23 Dr Nawaf [place] History of surgery on lower extremity left (hardware intact) History of lumbar surgery laminectomy History of cystoscopy History of esophagogastroduodenoscopy (EGD) History of colonoscopy History of tooth extraction History of tonsillectomy History of lumbar laminectomy History of lung surgery RUE lobectomy r/t lung cancer Hx of fusion of cervical spine good rom Hx of cholecystectomy (1990) Family History Father Stroke syndrome Gallbladder disease Mother Gallbladder disease Lung disease Hypertension Cardiac disorder Congestive heart failure Brother Myocardial infarction Sister No problems noted. Denies family history of Ovarian cancer Prostate cancer Breast cancer Colorectal cancer Social History Smoking Status: Current every day smoker Tobacco Type: Cigarettes Age Started Using Tobacco: 18; Age Quit Using Tobacco: 56; packs per day: 1.5; Cigarettes Per Day: 20-30 per day; Second Hand Exposure: No; Do You Dip or Chew Tobacco: No; Tobacco Cessation Education Requested by Patient: No Hx Alcohol Use: Yes Alcohol type: beer Alcohol Intake Frequency: Monthly or Less Alcohol Intake Frequency Comment: social; 3 cans per year; Hx Substance Use: No Preferred Language: Cypriot Communication Ability: Effective Visual Impairment: Limited Hearing Ability: Use of Hearing Aid Tube Mounter Required: No Beliefs That Will Affect Care: None marital status: Current Living Situation: Spouse Current Living Situation Comment: single story home current occupational status: employed and retired 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, 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 How many Children do You have: 5 Feels Safe at Home: Yes Safety Concerns: Feels Safe At This Time Childhood Exposure to Second-Hand Smoke: Yes Diet: regular Diet Comment: regular Dental Care, Regularly: No Physical Activity Frequency: Does not Exercise Seatbelt Use: never Sunscreen Use: No Assistive Devices: Oxygen - Continuous Review of Systems Review of Systems: The patient denies chest pain, palpitations, lower extremity swelling, sore throat, fevers, chills, sweats, nausea, vomiting, diarrhea , constipation, abdominal pain, pelvic pain, blood in urine or stool, dysuria, urinary frequency or urgency, lightheadedness, dizziness, headache, memory loss, loss of consciousness, rash, abnormal bruising or bleeding, focal weakness, numbness or tingling in arms or legs, back or neck pain, or night sweats. The review of systems is otherwise negative other than for that already noted above, and at least 10 systems have been reviewed. Physical Exam Physical Exam: The patient is awake, alert and oriented 3, well developed and well nourished, normocephalic and atraumatic, lying in bed and in no acute distress. HEENT--PERRL, EOMI, mucous membranes and oropharynx dry. Neck--supple. No JVD. No bruits. Thyroid normal, trachea midline, no adenopathy. Heart--normal S1 and S2. No murmurs, rubs or gallops. Lungs--coarse breath sounds bilaterally. No respiratory distress, no accessory muscle use. Abdomen--normal bowel sounds and soft. Nontender. Nondistended, no hernias or masses, no organomegaly. Extremities--no cyanosis or clubbing. No edema. There are good distal pulses b/l. Dermatologic--normal skin turgor, normal color, no abnormal lymph nodes, no rash. Neurologic--cranial nerves II through XII grossly intact. Rheumatologic--normal range of motion. Psychiatric--normal affect. Results & Data Results & Data Vital Signs (Past 12 Hours) Vital Signs Temp Pulse Pulse Resp BP BP Pulse Ox 02/01/24 20:16 99 H 02/01/24 19:25 36.9 C 107 H 26 H 113/56 L 95 02/01/24 18:31 124/47 L 02/01/24 18:30 109 H 20 97 02/01/24 18:27 109 H 20 97 02/01/24 18:12 115 H 24 95 02/01/24 18:00 112 H 20 97 02/01/24 18:00 108/62 02/01/24 17:51 114 H 20 96 02/01/24 17:42 115 H 22 96 02/01/24 17:39 94/61 L 02/01/24 17:00 129/50 L 02/01/24 17:00 129/50 L 02/01/24 17:00 119 H 22 97 02/01/24 16:51 120 H 20 97 02/01/24 16:45 120 H 20 97 02/01/24 16:39 120 H 24 96 02/01/24 16:30 126/74 02/01/24 16:09 111 H 02/01/24 15:51 96 02/01/24 15:36 36.5 C 116 H 17 105/44 L 89 L O2 Del Method O2 Flow Rate 02/01/24 20:16 02/01/24 19:25 Nasal Cannula 3 02/01/24 18:31 02/01/24 18:30 02/01/24 18:27 02/01/24 18:12 02/01/24 18:00 02/01/24 18:00 02/01/24 17:51 02/01/24 17:42 02/01/24 17:39 02/01/24 17:00 02/01/24 17:00 02/01/24 17:00 02/01/24 16:51 02/01/24 16:45 02/01/24 16:39 02/01/24 16:30 02/01/24 16:09 02/01/24 15:51 Nasal Cannula 02/01/24 15:36 Nasal Cannula 5 Laboratory Results Laboratory Results WBC 10.08 K/ul (4.8-10.8) 02/01/24 15:51 RBC 4.08 M/uL (4.70-6.10) L 02/01/24 15:51 Hgb 11.7 g/dl (14.0-18.0) L 02/01/24 15:51 Hct 35.0 % (42.0-52.0) L 02/01/24 15:51 MCV 85.8 fL (80.0-100.0) 02/01/24 15:51 MCH 28.7 pg (25.0-34.0) 02/01/24 15:51 MCHC 33.4 g/dL (32.0-36.0) 02/01/24 15:51 RDW Std Deviation 40.9 fL (36.4-46.3) 02/01/24 15:51 RDW Coeff of Dinesh 13.1 % (11.5-14.5) 02/01/24 15:51 Plt Count 153 K/uL (130-400) 02/01/24 15:51 MPV 10.1 fL (9.4-12.4) 02/01/24 15:51 Immature Gran % (Auto) 0.6 % 02/01/24 15:51 Neut % (Auto) 82.7 % 02/01/24 15:51 Lymph % (Auto) 6.1 % 02/01/24 15:51 Hitchcock % (Auto) 10.3 % 02/01/24 15:51 Eos % (Auto) 0.2 % 02/01/24 15:51 Baso % (Auto) 0.1 % 02/01/24 15:51 Neut # (Auto) 8.34 K/uL (1.40-6.50) H 02/01/24 15:51 Lymph # (Auto) 0.61 K/uL (1.20-3.40) L 02/01/24 15:51 Hitchcock # (Auto) 1.04 K/uL (0.11-0.59) H 02/01/24 15:51 Eos # (Auto) 0.02 K/uL (0.00-0.50) 02/01/24 15:51 Baso # (Auto) 0.01 K/uL (0.00-0.20) 02/01/24 15:51 Immature Gran # (Auto) 0.06 K/uL (0.01-0.20) 02/01/24 15:51 PT 11.6 Seconds (9.0-12.0) 02/01/24 15:51 INR 1.1 (0.9-1.1) 02/01/24 15:51 APTT 29 Seconds (21-31) 02/01/24 15:51 PTT Ratio 1.1 02/01/24 15:51 D-Dimer 3100 ug/L FEU (0-500) H* 02/01/24 15:51 VBG pH 7.41 (7.36-7.41) 02/01/24 16:10 VBG pCO2 51 mmHg (38-50) H 02/01/24 16:10 VBG pO2 27 mmHg 02/01/24 16:10 VBG HCO3 32 mmol/L 02/01/24 16:10 VBG O2 Saturation < 60.0 % 02/01/24 16:10 VBG Base Excess 6.3 mEq/L 02/01/24 16:10 Sodium 126 mmol/L (136-145) L 02/01/24 15:51 Potassium 4.2 mmol/L (3.5-5.1) 02/01/24 15:51 Chloride 88 mmol/L (98-107) L 02/01/24 15:51 Carbon Dioxide 32 mmol/L (21-32) 02/01/24 15:51 Anion Gap 6 (3-11) 02/01/24 15:51 BUN 10 mg/dl (6-23) 02/01/24 15:51 Creatinine 0.93 mg/dl (0.6-1.4) 02/01/24 15:51 Est Cr Clr Drug Dosing 96.1 ml/min 02/01/24 15:51 eGFR 89.44 02/01/24 15:51 BUN/Creatinine Ratio 10.8 (10-20) 02/01/24 15:51 Glucose 107 mg/dl (70-99(Fasting)) H 02/01/24 15:51 Lactate 0.9 mmol/L (0.4-2.0) 02/01/24 16:29 Calcium 8.7 mg/dl (8.6-10.3) 02/01/24 15:51 Magnesium 2.1 mg/dl (1.7-2.4) 02/01/24 15:51 Troponin I High Sens 13.0 pg/ml (0-20) 02/01/24 15:51 B-Natriuretic Peptide 51 pg/ml (0-100) 02/01/24 16:10 Procalcitonin 0.04 ng/ml (0-0.5) 02/01/24 15:51 Adenovirus (PCR) Not Detected (NotDetected) 02/01/24 16:05 B. pertussis DNA (PCR) Not Detected (NotDetected) 02/01/24 16:05 B.parapertussis DNA PCR Not Detected (NotDetected) 02/01/24 16:05 C. pneumoniae DNA (PCR) Not Detected (NotDetected) 02/01/24 16:05 Coronavirus OC43 (PCR) Not Detected (NotDetected) 02/01/24 16:05 Coronavirus HKU1 (PCR) Not Detected (NotDetected) 02/01/24 16:05 Coronavirus 229E (PCR) Not Detected (NotDetected) 02/01/24 16:05 SARS-CoV-2 (PCR) Not Detected (NotDetected) 02/01/24 16:05 Coronavirus NL63 (PCR) Not Detected (NotDetected) 02/01/24 16:05 Human Metapneumovir PCR Not Detected (NotDetected) 02/01/24 16:05 Influenza Type A (PCR) Not Detected (NotDetected) 02/01/24 16:05 Influenza Type B (PCR) Not Detected (NotDetected) 02/01/24 16:05 M. pneumoniae (PCR) Not Detected (NotDetected) 02/01/24 16:05 Parainfluenza 1 (PCR) Not Detected (NotDetected) 02/01/24 16:05 Parainfluenza 2 (PCR) Not Detected (NotDetected) 02/01/24 16:05 Parainfluenza 3 (PCR) Not Detected (NotDetected) 02/01/24 16:05 Parainfluenza 4 (PCR) DETECTED (NotDetected) A 02/01/24 16:05 RSV (PCR) Not Detected (NotDetected) 02/01/24 16:05 Entero/Rhino (PCR) Not Detected (NotDetected) 02/01/24 16:05 Impressions Chest X-Ray 02/01/24 15:58 EXAM: Radiograph of the Chest 1 View INDICATION: Shortness of breath and chest pain. TECHNIQUE: Frontal view of the chest. COMPARISON: 01/21/2024 FINDINGS: Lungs and pleural spaces: Stable bullous emphysema. There is increased patchy airspace disease superimposed on chronic scarring in the left base. Stable scarring throughout the right lung. No pleural effusion or pneumothorax. Heart: Shape and configuration within normal limits allowing for technique. Mediastinum: Normal contour. Bones/joints: No fracture, erosion or dislocation. Soft tissues: No abnormality noted. No radiopaque foreign body noted. Upper abdomen: No abnormality noted. IMPRESSION: Patchy left basilar bronchitis and mild pneumonia superimposed on generalized chronic changes. ACT 112: Negative or not required by law. Electronically signed by Allie Aleman 02-01-2024 4:37 PM Chest CTA 02/01/24 16:53 EXAM: CT Angiography Chest With Intravenous Contrast INDICATION: Dyspnea, worsening cough, increased oxygen requirement and right sided chest pain. TECHNIQUE: Axial computed tomographic angiography images of the chest with intravenous contrast. Sagittal and coronal reformatted images were created and reviewed. This CT exam was performed using one or more of the following dose reduction techniques: automated exposure control, adjustment of the mA and/or kV according to patient size, and/or use of iterative reconstruction technique. MIP reconstructed images were created and reviewed. CONTRAST: 119 ml of Optiray 320 was administered intravenously. COMPARISON: No relevant prior studies available. FINDINGS: Limitations: The study is significantly degraded by respiratory motion. Significant abnormalities may not be detected. Pulmonary arteries: No pulmonary embolus noted in the main pulmonary trunk or either main artery. Small pulmonary emboli more distally difficult to exclude allowing for significant motion. Aorta: No acute change noted. No thoracic aortic aneurysm or dissection. Lungs and pleural spaces: Bullous emphysematous changes noted. There is bronchiectasis and consolidation in the lingula. There is peribronchial infiltrate within the right upper and lower lobes. No significant pleural effusion. No pneumothorax. Heart: No abnormality noted. No cardiomegaly. No significant pericardial effusion. No evidence of RV dysfunction. Bones/joints: No acute or atypical chronic changes. Soft tissues: No abnormality noted. Lymph nodes: No abnormality noted. No enlarged lymph nodes. Gallbladder and bile ducts: Cholecystectomy. IMPRESSION: 1. Significantly limited exam due to motion. 2. Emphysema with multifocal bilateral pneumonia and associated lingular bronchiectasis. 3. No pulmonary embolus noted in the main pulmonary trunk or arteries. Assessment otherwise limited. ACT 112: Negative or not required by law. Electronically signed by Allie Aleman 02-01-2024 5:45 PM Code Status & VTE Plan Code Status full code VTE Prophylaxis Plan VTE Prophylaxis will be ordered: Yes PG Care Time/CCT Total # of Minutes Spent Total Time Spent with Patient: Total time spent is greater than 50% in coordination of care (as documented) at patient's floor/unit and/or counseling patient: Coding Level of Care Code 02358 INT INP/OBS CARE MIN Diagnoses Parainfluenza B34.8 Pneumonia J18.9 Laterality: bilateral Lung location: unspecified part of lung Pneumonia type: due to unspecified organism Acute hyponatremia E87.1 Oral candidiasis B37.0 (2) Pneumonia Laterality: bilateral Lung location: unspecified part of lung Pneumonia type: due to unspecified organism Qualified Code(s): J18.9 - Pneumonia, unspecified organism
[2024-02-01] MEDS: FLUCONAZOLE 200 MG/100 ML BAG IV STA (22:24)
[2024-02-01] MEDS ORDERED: methylPREDNISolone 10 mg/mL (For Ped Dose < 7mg) IV SCH (22:35)
[2024-02-01] MEDS ORDERED: ACETAMINOPHEN 325 MG TAB PO PRN (22:35)
[2024-02-01] MEDS ORDERED: TRIAMCINOLONE ACET 0.5% CR 15 GM TUBE TOP PRN (22:55)
[2024-02-01] MEDS: guaiFENesin 600 MG TABCR PO SCH (23:19)
[2024-02-01] MEDS: rOPINIRole HCL 0.25 MG TABLET PO SCH (23:19)
[2024-02-01] MEDS: methylPREDNISolone 40 MG in SYRINGE 0 ML IV SCH (23:19)
[2024-02-01] MEDS: ATORVASTATIN 10 MG TAB PO SCH (23:20)
[2024-02-01] MEDS: CLOTRIMAZOLE 10 MG TROCHE BUCCAL SCH (23:20)
[2024-02-01] MEDS: HEPARIN SOD 5,000 UNIT/0.5 ML VIAL SQ SCH (23:25)
[2024-02-01] MEDS: PIPERACILLIN/TAZOBACTAM 4.5 GM/100 ML BAG IV SCH (23:50)
--- NOTE | 2024-02-02 03:27 | Billing Data ---
Date of Service February 02, 2024 Coding Level of Care Code 74964 INT INP/OBS CARE
[2024-02-02] MEDS: ALBUT/IPRATROP 3MG/0.5MG NEB 3 ML VIAL INH PRN (06:09)
[2024-02-02 07:16] LABS: Hematocrit (blood only) 32.6 % (42.0-52.0); Hemoglobin 11.1 g/dl (14.0-18.0); Immature Granulocytes # (auto) 0.02 K/uL (0.01-0.20); Immature Granulocytes % (auto) 0.6 %; Lymphocytes # (auto) 0.27 K/uL (1.20-3.40); Lymphocytes % (auto) 7.9 %; Mean Corpuscular Hemoglobin 29.1 pg (25.0-34.0); Mean Corpuscular Volume 85.6 fL (80.0-100.0); Monocytes # (auto) 0.12 K/uL (0.11-0.59); Monocytes % (auto) 3.5 %; Neutrophils # (auto) 3.02 K/uL (1.40-6.50); Platelet Count 139 K/uL (130-400); RDW Coefficient of Variation 12.9 % (11.5-14.5); RDW Standard Deviation 40.6 fL (36.4-46.3); Red Blood Count 3.81 M/uL (4.70-6.10); White Blood Count 3.43 K/ul (4.8-10.8)
[2024-02-02] MEDS: SODIUM CHLOR 7% 4 ML NEB NEB SCH (07:16)
[2024-02-02] MEDS: FORMOTEROL 20 MCG/2 ML VIAL INH SCH (07:16)
[2024-02-02] MEDS: BUDESONIDE 0.5 MG/2 ML VIAL (PULMICORT) NEB SCH (07:16)
[2024-02-02 07:23] LABS: Albumin Level 2.9 gm/dl (3.4-5.0); BUN Creatinine Ratio 14.1 (10-20); Calcium 8.6 mg/dl (8.6-10.3); Creatinine Clr Calc Pharmacy 112.9 ml/min; Magnesium 2.3 mg/dl (1.7-2.4); Phosphorus 3.1 mg/dl (2.5-4.9); Potassium 4.6 mmol/L (3.5-5.1)
[2024-02-02 07:36] LABS: Hypersegmented Neutrophils 1+
[2024-02-02] MEDS ORDERED: METOPROLOL SUCC 50MG EXT REL TAB PO SCH (09:00)
[2024-02-02] MEDS: TAMSULOSIN HCL 0.4 MG CAP PO SCH (09:07)
[2024-02-02] MEDS: CHOLECALCIFEROL 25 MCG (1000 UNITS) TAB PO SCH (09:07)
[2024-02-02] MEDS: ASPIRIN 81 MG ECTAB PO SCH (09:07)
[2024-02-02] MEDS: MULTIVITAMIN TAB PO SCH (09:08)
[2024-02-02] MEDS: METOPROLOL SUCC 25MG EXT REL TAB PO SCH (09:09)
[2024-02-02] MEDS: UMECLIDINIUM BROMIDE 62.5MCG/BLISTER 7 PUFFS/INHALER INH SCH (09:11)
[2024-02-02] MEDS: LORazepam 0.5 MG TAB PO SCH (09:45)
[2024-02-02] MEDS: methylPREDNISolone 40 MG in SYRINGE 0 ML IV SCH (09:45)
--- NOTE | 2024-02-02 10:26 | Pulmonary Consultation ---
Date of Consultation February 02, 2024 Assessment & Plan (1) Parainfluenza: (2) Pneumonia: Laterality: bilateral Lung location: unspecified part of lung Pneumonia type: due to unspecified organism Qualified Code(s): J18.9 - Pneumonia, unspecified organism (3) Bronchiectasis: (4) Chronic bronchitis: (5) Acute on chronic respiratory failure with hypoxia: (6) COPD (chronic obstructive pulmonary disease): COPD type: unspecified COPD Qualified Code(s): J44.9 - Chronic obstructive pulmonary disease, unspecified Plan Impression: 68-year-old male with very severe airflow obstruction admitted with exacerbation of COPD and patchy parenchymal opacities concerning for pneumonia. Recommendations: 1. Pneumonia: Continue Zosyn. Anticipate 7-day course. Patient is at risk for Pseudomonas given structural lung disease, recent hospitalization, and recent antibiotics. Will add azithromycin as well. Chronic azithromycin therapy might be a consideration. Supportive care only for parainfluenza which may have been a precipitating event 2. Bronchiectasis: Continue pulmonary toilet clearance techniques. He is not having issues currently and I do not think vest will be beneficial but will follow at this point in time. Continue Mucinex and hypertonic saline 3. A follow-up CT scan should be obtained probably in about 8 to 12 weeks to ensure clearance of the parenchymal opacities. 4. Continue oxygen titrated to maintain saturations at or above 90%. 5. COPD: Continue Solu-Medrol, nebulized budesonide and Perforomist. Continue Incruse. Continue nebulized DuoNebs on an as-needed basis. 6. Increase activity. Ambulate as tolerated. Out of bed to chair is much as possible. Will continue to follow with this patient during his hospitalization. Thanks for the opportunity to participate in the care of this patient. Above recommendations and plan were discussed with the patient as well as with his at bedside. Will continue to follow while he is in the hospital. Feel free to reach out to us with additional questions or concerns History of Present Illness Attending Physician: Noam Sanchez MD History of Present Illness Asked by hospitalist to assist in evaluation management this patient with a history of severe airflow obstruction and chronic hypoxemic respiratory failure admitted with parainfluenza who was sent to the emergency room from pulmonary clinic yesterday and admitted with acute exacerbation of COPD and pneumonia. Pulmonary is consulted for additional evaluation management. Patient is a 68-year-old male with a history of very severe emphysema. He has had multiple hospitalizations over the last several months. He is dependent on oxygen at baseline at 2 L/min at rest and 4 L/min with physical activity. He reported increasing wheezing coughing and phlegm production. He uses Trelegy in the outpatient setting but has developed some thrush and has been using nebulized budesonide Perforomist. He has a history of head neck cancer status post radiation therapy with some associated bronchiectasis. He reports that since being in the hospital he feels somewhat improved with the antibiotics and steroids. He states he was offered the opportunity to have vibratory percussive vest therapy in the outpatient setting however this was never set up. He does not feel that he is having difficulty clearing secretions currently. He was found to be positive for parainfluenza on presentation and had a new patchy opacity in the right upper lobe consistent with probable pneumonia. He is currently being treated with nebulized budesonide and Perforomist as well as Solu-Medrol and Zosyn. Allergies Allergy/AdvReac Type Severity Reaction Status Date / Time diltiazem Allergy Intermediate REDNESS Verified 01/30/24 15:13 "MADE ME LOOK LIKE A STRAWBERRY" bee venom protein (honey bee) Allergy Unknown LOCAL Verified 01/30/24 15:13 SWELLING Home Medications Medication Instructions Recorded Confirmed Type multivitamin 1 tab PO QAM 02/11/18 02/01/24 History aspirin 81 mg tablet,delayed 81 mg PO QAM 06/09/21 02/01/24 History release (Adult Low Dose Aspirin) guaifenesin 1,200 mg tablet, 1,200 mg PO BID 09/15/22 02/01/24 History extended release 12 hr (Mucinex) tamsulosin 0.4 mg capsule 0.4 mg PO QAM 09/15/22 02/01/24 History Oxygen Home 09/17/22 02/01/24 History ropinirole 0.5 mg tablet 0.5 mg PO PM #90 tabs 02/15/23 02/01/24 Rx nebulizers #1 ea 04/15/23 02/01/24 Rx betamethasone dipropionate 0.05 % 1 applic topical BID PRN skin 04/21/23 02/01/24 Rx topical cream irritation #15 grams Portable Oxygen #1 ea 06/21/23 02/01/24 Rx atorvastatin 10 mg tablet 10 mg PO HS #90 tabs 09/02/23 02/01/24 Rx levocetirizine 5 mg tablet 5 mg PO DAILY PRN Allergy Symptoms 09/02/23 02/01/24 Rx #90 tabs metoprolol succinate 50 mg 50 mg PO QAM #90 tabs 09/02/23 02/01/24 Rx tablet,extended release 24 hr (Toprol XL) ipratropium 0.5 mg-albuterol 3 mg 3 ml inhalation QID PRN shortness 12/28/23 02/01/24 Rx (2.5 mg base)/3 mL nebulization of breath or wheezing #1,080 vials soln lorazepam 0.5 mg tablet 0.5 mg buccal DAILY anxiety #30 01/16/24 02/01/24 Rx tabs cholecalciferol (vitamin D3) 25 25 mcg PO DAILY 01/21/24 02/01/24 History mcg (1,000 unit) tablet (Vitamin D3) budesonide 0.5 mg/2 mL suspension 0.5 mg (2 mL) NEB BIDR #120 mL 01/25/24 02/01/24 Rx for nebulization formoterol fumarate 20 mcg/2 mL 20 mcg (2 mL) inhalation BIDR #120 01/25/24 02/01/24 Rx solution for nebulization mL (Perforomist) sodium chloride 7 % for 4 ml NEB BIDR #240 mL 01/25/24 02/01/24 Rx nebulization Vibration Vest #1 ea 02/01/24 02/01/24 Rx azithromycin 250 mg tablet 250 mg PO 3XWK 02/01/24 02/01/24 History chlorhexidine gluconate 0.12 % See Rx Instructions .Route .COMPLEX 02/01/24 02/01/24 History mouthwash umeclidinium 62.5 mcg/actuation 1 inh inhalation QAM 02/01/24 02/01/24 History blister powder for inhalation (Incruse Ellipta) Patient History Medical History Dependence on continuous supplemental oxygen wears 1-3l nc cont as needed. "will bump up if needed" Polyneuropathy Periodic limb movement BPH (benign prostatic hyperplasia) History of foot ulcer resolved Elevated cholesterol Hx of Mobitz type I block pt reports tachycardia>reason for metoprolol Hyperlipidemia History of COVID-19 02/2023- hospitalized at [facility] Vitamin D deficiency hx 2nd degree AV block follows w/ Dr Holloway DALIA (obstructive sleep apnea) uses 2 lpm HS Pulmonary nodule Arthritis History of anemia History of lung cancer RUL, s/p lobectomy - [facility], 2011>chemo and radiation H/O deep venous thrombosis 2011>when going through chemo (was on coumadin for years) Chronic respiratory failure with hypoxia follows w/ Dr Seo H/O testicular mass benign Restless leg syndrome Stage 4 very severe COPD by GOLD classification Surgical History History of surgery S/P right partial glossectomy;Right neck dissection;Placement of acellular dermal matrix graft on 11/29/23 Dr. Oliver H/O excision of mass right lateral tongue, nasopharyngeal scope, frozen section; 08/18/23 Dr Nawaf [place] History of surgery on lower extremity left (hardware intact) History of lumbar surgery laminectomy History of cystoscopy History of esophagogastroduodenoscopy (EGD) History of colonoscopy History of tooth extraction History of tonsillectomy History of lumbar laminectomy History of lung surgery RUE lobectomy r/t lung cancer Hx of fusion of cervical spine good rom Hx of cholecystectomy (1990) Family History Father Stroke syndrome Gallbladder disease Mother Gallbladder disease Lung disease Hypertension Cardiac disorder Congestive heart failure Brother Myocardial infarction Sister No problems noted. Denies family history of Ovarian cancer Prostate cancer Breast cancer Colorectal cancer Social History Smoking Status: Current every day smoker Tobacco Type: Cigarettes Age Started Using Tobacco: 18; Age Quit Using Tobacco: 56; packs per day: 1.5; Cigarettes Per Day: 20-30 per day; Second Hand Exposure: No; Do You Dip or Chew Tobacco: No; Tobacco Cessation Education Requested by Patient: No Hx Alcohol Use: Yes Alcohol type: beer Alcohol Intake Frequency: Monthly or Less Alcohol Intake Frequency Comment: social; 3 cans per year; Hx Substance Use: No Preferred Language: Setswana Communication Ability: Effective Visual Impairment: Limited Hearing Ability: Use of Hearing Aid Scada Operator Required: No Beliefs That Will Affect Care: None marital status: Current Living Situation: Spouse Current Living Situation Comment: single story home current occupational status: employed and retired 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 No additions or deletions Physical Exam Physical Exam: VITAL SIGNS Vital signs and nursing notes were reviewed. GENERAL 68-year-old male appearing his stated age who is in no acute distress. Communicates well with provider and answers questions appropriately. SKIN Without rashes or lesions. NOSE Midline and without cyanosis. MOUTH/OROPHARYNX Without perioral cyanosis. NECK Neck with FROM. Supple to palpation. LUNGS Chest wall evaluation demonstrates increased chest wall A:P diameter. Auscultation reveals diffuse expiratory wheezes appreciated throughout all lung mcgregor. CARDIAC RRR with S1/S2. No murmur, rubs, or gallops appreciated. ABDOMEN Abdominal inspection demonstrates protuberant. BS normoactive all four quadrants. No tenderness, palpable masses, or ascites noted. EXTREMITIES Nail clubbing not present. No peripheral cyanosis. Mild pretibial edema present. +3/5 radial palpated throughout. PSYCH A&Ox3 and cooperates fully with examiner. Pt is very pleasant and interacts well with examiner. Results & Data Results & Data Vital Signs (Past 12 Hours) Vital Signs Temp Pulse Pulse Pulse Resp BP Pulse Ox 02/02/24 07:17 96 H 18 96 02/02/24 07:05 36.4 C L 98 H 25 H 106/57 L 94 02/02/24 06:09 90 18 95 02/02/24 02:44 36.6 C 83 18 92/57 L 95 02/01/24 22:40 87 O2 Del Method O2 Flow Rate 02/02/24 07:17 Nasal Cannula 2 02/02/24 07:05 Nasal Cannula 3 02/02/24 06:09 Nasal Cannula 2 02/02/24 02:44 Nasal Cannula 02/01/24 22:40 Critical Care Results & Data Vital Signs (Past 12 Hours) Vital Signs Temp Pulse Pulse Pulse Resp BP Pulse Ox 02/02/24 07:17 96 H 18 96 02/02/24 07:05 36.4 C L 98 H 25 H 106/57 L 94 02/02/24 06:09 90 18 95 02/02/24 02:44 36.6 C 83 18 92/57 L 95 02/01/24 22:40 87 O2 Del Method O2 Flow Rate 02/02/24 07:17 Nasal Cannula 2 02/02/24 07:05 Nasal Cannula 3 02/02/24 06:09 Nasal Cannula 2 02/02/24 02:44 Nasal Cannula 02/01/24 22:40 Lab & Micro Results (Past 24 Hours) RBC 3.81 M/uL (4.70-6.10) L 02/02/24 WBC 3.43 K/ul (4.8-10.8) L 02/02/24 Hgb 11.1 g/dl (14.0-18.0) L 02/02/24 Hct 32.6 % (42.0-52.0) L 02/02/24 MCV 85.6 fL (80.0-100.0) 02/02/24 MCH 29.1 pg (25.0-34.0) 02/02/24 MCHC 34.0 g/dL (32.0-36.0) 02/02/24 RDW Standard Deviation 40.6 fL (36.4-46.3) 02/02/24 RDW Coefficient of Variation 12.9 % (11.5-14.5) 02/02/24 Plt Count 139 K/uL (130-400) 02/02/24 MPV 10.0 fL (9.4-12.4) 02/02/24 Neutrophils (%) (Auto) 88.0 % 02/02/24 Lymphocytes (%) (Auto) 7.9 % 02/02/24 Monocytes # (Auto) 0.12 K/uL (0.11-0.59) 02/02/24 Eosinophils # (Auto) 0.00 K/uL (0.00-0.50) 02/02/24 Immature Granulocyte % (Auto) 0.6 % 02/02/24 Neutrophils # (Auto) 3.02 K/uL (1.40-6.50) 02/02/24 Lymphocytes # (Auto) 0.27 K/uL (1.20-3.40) L 02/02/24 Monocytes # (Auto) 0.12 K/uL (0.11-0.59) 02/02/24 Eosinophils # (Auto) 0.00 K/uL (0.00-0.50) 02/02/24 Basophils # (Auto) 0.00 K/uL (0.00-0.20) 02/02/24 Immature Granulocyte # (Auto) 0.02 K/uL (0.01-0.20) 4 Hypersegmented Neutrophils 1+ 02/02/24 Na 133 mmol/L (136-145) L 02/02/24 K 4.6 mmol/L (3.5-5.1) 02/02/24 Cl 95 mmol/L (98-107) L 02/02/24 CO2 31 mmol/L (21-32) 02/02/24 Anion Gap 7 (3-11) 02/02/24 BUN 11 mg/dl (6-23) 02/02/24 Creatinine 0.78 mg/dl (0.6-1.4) 02/02/24 BUN/Creatinine Ratio 14.1 (10-20) 02/02/24 Glu 159 mg/dl (70-99(Fasting)) H 02/02/24 Ca 8.6 mg/dl (8.6-10.3) 02/02/24 Phosphorus Level 3.1 mg/dl (2.5-4.9) 02/02/24 Albumin 2.9 gm/dl (3.4-5.0) L 02/02/24 Mg 2.3 mg/dl (1.7-2.4) 02/02/24 06:26 Calcium Level 8.6 mg/dl (8.6-10.3) 02/02/24 06:26 Prothromb Time International Ratio 1.1 (0.9-1.1) 02/01/24 15:5 1 Venous Blood pH 7.41 (7.36-7.41) 02/01/24 16:10 Venous Blood Partial Pressure CO2 51 mmHg (38-50) H 02/01/24 16 :10 Venous Blood Partial Pressure O2 27 mmHg 02/01/24 16:10 Venous Blood HCO3 32 mmol/L 02/01/24 16:10 Venous Blood Base Excess 6.3 mEq/L 02/01/24 16:10 Venous Blood Oxygen Saturation < 60.0 % 02/01/24 16:10 Diagnostic Findings (Past 24 Hours) Chest X-Ray 02/01/24 15:58 EXAM: Radiograph of the Chest 1 View INDICATION: Shortness of breath and chest pain. TECHNIQUE: Frontal view of the chest. COMPARISON: 01/21/2024 FINDINGS: Lungs and pleural spaces: Stable bullous emphysema. There is increased patchy airspace disease superimposed on chronic scarring in the left base. Stable scarring throughout the right lung. No pleural effusion or pneumothorax. Heart: Shape and configuration within normal limits allowing for technique. Mediastinum: Normal contour. Bones/joints: No fracture, erosion or dislocation. Soft tissues: No abnormality noted. No radiopaque foreign body noted. Upper abdomen: No abnormality noted. IMPRESSION: Patchy left basilar bronchitis and mild pneumonia superimposed on generalized chronic changes. ACT 112: Negative or not required by law. Electronically signed by Allie Aleman 02-01-2024 4:37 PM Chest CTA 02/01/24 16:53 EXAM: CT Angiography Chest With Intravenous Contrast INDICATION: Dyspnea, worsening cough, increased oxygen requirement and right sided chest pain. TECHNIQUE: Axial computed tomographic angiography images of the chest with intravenous contrast. Sagittal and coronal reformatted images were created and reviewed. This CT exam was performed using one or more of the following dose reduction techniques: automated exposure control, adjustment of the mA and/or kV according to patient size, and/or use of iterative reconstruction technique. MIP reconstructed images were created and reviewed. CONTRAST: 119 ml of Optiray 320 was administered intravenously. COMPARISON: No relevant prior studies available. FINDINGS: Limitations: The study is significantly degraded by respiratory motion. Significant abnormalities may not be detected. Pulmonary arteries: No pulmonary embolus noted in the main pulmonary trunk or either main artery. Small pulmonary emboli more distally difficult to exclude allowing for significant motion. Aorta: No acute change noted. No thoracic aortic aneurysm or dissection. Lungs and pleural spaces: Bullous emphysematous changes noted. There is bronchiectasis and consolidation in the lingula. There is peribronchial infiltrate within the right upper and lower lobes. No significant pleural effusion. No pneumothorax. Heart: No abnormality noted. No cardiomegaly. No significant pericardial effusion. No evidence of RV dysfunction. Bones/joints: No acute or atypical chronic changes. Soft tissues: No abnormality noted. Lymph nodes: No abnormality noted. No enlarged lymph nodes. Gallbladder and bile ducts: Cholecystectomy. IMPRESSION: 1. Significantly limited exam due to motion. 2. Emphysema with multifocal bilateral pneumonia and associated lingular bronchiectasis. 3. No pulmonary embolus noted in the main pulmonary trunk or arteries. Assessment otherwise limited. ACT 112: Negative or not required by law. Electronically signed by Allie Aleman 02-01-2024 5:45 PM I & O Totals 24 Hours 02/01/24 02/02/24 02/03/24 06:59 06:59 06:59 Intake Total 810.667 / 810.667 Output Total 1775 / 1775 Balance -964.333 / -964.333 Cumulative 02/01/24 15:35 thru 02/02/24 05:57 Intake Total 810.667 Output Total 1775 Balance -964.333 RT Ventilator Mngmt (Last Documented) Ventilator Ordered Settings Respiratory Rate 18 02/02/24 07:17 Ventilator - PT Measurements Respiratory Rate 18 PG Care Time/CCT Total # of Minutes Spent Total Time Spent with Patient: Total time spent is greater than 50% in coordination of care (as documented) at patient's floor/unit and/or counseling patient: Coding Level of Care Code 63350 INT INP/OBS CARE 3/75MIN Diagnoses Parainfluenza B34.8 Pneumonia J18.9 Laterality: bilateral Lung location: unspecified part of lung Pneumonia type: due to unspecified organism Bronchiectasis J47.9 Chronic bronchitis J42 Acute on chronic respiratory failure with hypoxia J96.21 Chronic obstructive pulmonary disease, unspecified COPD type J44.9 COPD type: unspecified COPD
[2024-02-02] MEDS: AZITHROMYCIN 250 MG TAB PO SCH (11:44)
--- NOTE | 2024-02-02 12:15 | Hospitalist Progress Note ---
Date of Service February 02, 2024 Assessment & Plan (1) Parainfluenza: Plan: Positivity on BioFire. Difficult to say if this has aggravated his respiratory status but it could have. Symptomatic treatment (2) Pneumonia: Plan: Possible on admission. He is now on Zosyn and azithromycin. No sputum produced for culture so far. (3) Acute hyponatremia: Plan: Mild. Improving. Serum osmolarity 280. Will follow (4) Oral candidiasis: Plan: Currently on intravenous Diflucan. Symptomatic care (5) Chronic respiratory failure with hypoxia: Plan: Currently on 2 L oxygen per minute per nasal cannula with oxygen saturation 96%. Plan Hopeful discharge to home within the next 2 to 3 days Admission and Anticipated Discharge Date Admission Date: February 01, 2024 Subjective Alert and oriented. No distress. is at the bedside. Pulmonary medicine consult appreciated. Recommendations has been followed. Sodium improved to 133. Serum Osmo was 280 Review of Systems 2 Review of Systems: Constitutionalno fever or chills ENTno blurred vision, no double vision, no epistaxis, no sore throat Respiratorynonproductive cough. Dyspnea on exertion. No hemoptysis. Cardiacno palpitations, no chest pain, no syncope Bhargav nausea, vomiting, diarrhea, melena, hematochezia GUno urinary retention, no urinary incontinence, no dysuria, no hematuria Musculoskeletalno joint pain, no muscle tenderness Skinno bruising, no rashes, no pruritus Neurono isolated weakness, no paresthesia, no weakness Psychno depression, no anxiety Physical Exam 2 Physical Exam: General-alert and oriented x3, no fever, no chills HEENT-head atraumatic and normocephalic, pupils equal and reactive to light, extraocular muscles intact Neck-no lymphadenopathy or thyromegaly, trachea midline Chest-bilateral rhonchi and expiratory wheezes. Diminished breath sounds. No inspiratory rales. Cardiac-regular rate and rhythm, normal S1 and S2 Abdomen-normal bowel sounds, no hepatosplenomegaly Extremities-no cyanosis, clubbing, or edema Neuro-cranial nerves II through XII intact, motor and sensory function within normal limits, strength symmetrical, no focal deficits Psych-normal affect, normal mood Results & Data Results & Data Vital Signs (Past 12 Hours) Vital Signs Temp Pulse Pulse Resp BP Pulse Ox O2 Del Method 02/02/24 10:52 36.3 C L 91 H 24 122/67 95 Nasal Cannula 02/02/24 07:17 96 H 18 96 Nasal Cannula 02/02/24 07:05 36.4 C L 98 H 25 H 106/57 L 94 Nasal Cannula 02/02/24 06:09 90 18 95 Nasal Cannula 02/02/24 02:44 36.6 C 83 18 92/57 L 95 Nasal Cannula O2 Flow Rate 02/02/24 10:52 2 02/02/24 07:17 2 02/02/24 07:05 3 02/02/24 06:09 2 02/02/24 02:44 Laboratory Results 02/02/24 06:26 02/02/24 06:26 PG Care Time/CCT Total # of Minutes Spent Total Time Spent with Patient: Total time spent is greater than 50% in coordination of care (as documented) at patient's floor/unit and/or counseling patient: Coding Level of Care Code 95609 SUB INP/OBS CARE 3/50MIN Diagnoses Parainfluenza B34.8 Pneumonia J18.9 Laterality: bilateral Lung location: unspecified part of lung Pneumonia type: due to unspecified organism Acute hyponatremia E87.1 Oral candidiasis B37.0 Chronic respiratory failure with hypoxia J96.11 (2) Pneumonia Laterality: bilateral Lung location: unspecified part of lung Pneumonia type: due to unspecified organism Qualified Code(s): J18.9 - Pneumonia, unspecified organism
--- OUTSIDE RECORDS SUMMARY | 2024-02-02 12:44 | External Medical Summary | Summary of Care ---
Author Name Unknown Organization [facility] Address [address] [place] [address] Phone [phone] Care Team Providers Care Aluminum Siding Mechanic Name Role Phone Aggie Mccollum MD Primary Care Provider Reason for Visit * Reason Onset Date Comments case management 02/01/2024 Encounter Details Date Type Department Care Team (Late st Contact Info) Description 02/01/2024 Product Advisor Telephone Care Coordination and Integration [address] [place] [address] Carly Bower, RN [address] [place] [address] case management Allergies Active Allergy Reactions Criticality Noted Date Comments Bee Stings 06/20/1997 swelling,GI upset Diltiazem Hives 11/18/2020 documented as of this encounter (statuses as of 02/01/2024) Medications RETURN TO WORKIndications:Moose kache,Intervertebra l disc prolapse Light duty x 1 week then return to full without restrictions. 1 0 03/22/19 03 Active Metoprolol Succinate 50 MG Oral Capsule ER 24 Hour Sprinkle Take by mouth. A ctive Aspirin 81 MG Oral Tablet Chewable Take [...] Atorvastatin Calcium 10 MG Oral Tablet (Lipitor) 10/15/19 22 Active Azithromycin 250 MG Oral Tablet (Zithromax) TAKE ONE TABLET BY MOUTH "ON TUESDAY, TUESDAY AND TUESDAY" 36 Tablet 3 03/18/2023 10:34 AM EST 07/21/19 23 Active rOPINIRole HCl 0.5 MG Oral Tablet (Requip) TAKE ONE TABLET BY MOUTH EVERY EVENING 90 Tablet 3 11/23/2022 7:20 AM EDT 03/10/19 23 Active rOPINIRole HCl 0.5 MG Oral Tablet (Requip) take 1 tablet by mouth in evening 90 Tablet 3 11/08/2023 5:03 PM EDT 02/16/20 23 Active Azithromycin 250 MG Oral Tablet (Zithromax) take 1 tablet by mouth on Tuesday--Tuesday; 36 Tablet 3 11/19/2023 2:45 PM EDT 06/08/19 24 Active Tamsulosin HCl 0.4 MG Oral Capsule (Flomax) TAKE ONE CAPSULE BY MOUTH IN THE MORNING 90 Capsule 3 12/13/2023 12:49 PM EDT 06/15/19 24 Active Albuterol Sulfate HFA 108 (90 Base) MCG/ACT Inhalation Aerosol Solution INHALE TWO PUFFS BY MOUTH EVERY FOUR HOURS NEEDED FOR SHORTNESS OF BREATH OR WHEEZING 54 g 1 06/22/2023 5:36 PM EDT 06/21/19 24 Active Atorvastatin Calcium 10 MG Oral Tablet (Lipitor) take one tablet by mouth at bedtime 90 Tablet 3 12/07/2023 6:04 PM EDT 09/02/19 24 Active Levocetirizine Dihydrochloride 5 MG Oral Tablet take one tablet by mouth daily as needed for allergies, take daily for 10 days then as needed 90 Tablet 3 11/09/2023 10:21 AM EDT 09/02/19 24 Active Metoprolol Succinate ER 50 MG Oral Tablet Extended Release 24 Hour (toPROL XL) take one tablet by mouth daily in the morning 90 Tablet 3 12/15/2023 12:52 PM EDT 09/02/19 Active oxygen IN GAS Use 2 L/min(Oxygen) as directed. Increase to 4 liters with activity Active guaiFENesin ER 1200 MG Oral Tablet Extended Release 12 Hour 1,200 mg. 09/16/19 Active Betamethasone Dipropionate 0.05 % External Cream (Diprosone) APPLY TOPICALLY TO DERMATITIS ON THE FACE TWICE A DAY FOR UP TO 5 DAYS AT A TIME Active Chlorhexidine Gluconate 0.12 % Mouth/Throat Solution (Periogard) Swish and spit 15 mL 4 times a day; after all three meals and at bedtime. Do not swallow. 473 mL 12/01/2023 8:21 AM EDT 11/29/19 Active Multiple Vitamin Oral Tablet 1 Tablet. Active Ipratropium-Albuter ol 0.5-2.5 (3) MG/3ML Inhalation Solution (Duoneb) inhale 3 ML (1 vial) 4 times daily As Needed for shortness of breath or wheezing 1080 mL 1 12/29/2023 6:28 PM EDT 12/28/19 24 Active Umeclidinium [place] 62.5 MCG/ACT Inhalation Aerosol Powder Breath Activated (INCRUSE ellipta) Inhale 1 Puff by mouth in the morning. Active LORazepam 0.5 MG Oral Tablet (Ativan) Take 1 Tablet by mouth once. 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 Answer Date of Assessment Author No 11/29/2023 1:13 PM Ariana Fountain RN * Are you blind or do you have serious difficulty seeing, even when wearing glasses? Answer Date of Assessment Author No 11/29/2023 1:13 PM [employer] Ariana Finnegan RN * Do you have serious difficulty walking or climbing stairs? (5 years old or older) Answer Date of Assessment Author No 11/29/2023 1:13 PM EDT Ariana Finnegan RN * Do you have difficulty dressing or bathing? (5 years old or older) Answer Date of Assessment Author No 11/29/2023 1:13 PM EDT Ariana Finnegan RN * Because of a physical, mental, or emotional condition, do you have difficulty doing errands alone such as visiting a doctors office or shopping? (15 years old or older) Answer Date of Assessment Author No 11/29/2023 1:13 PM Ariana Fountain RN documented as of this encounter Mental Status * Because of a physical, mental, or emotional condition, do you have serious difficulty concentrating, remembering, or making decisions? (5 years old or older) Answer Entry Date Author No 11/29/2023 1:13 PM Ariana Fountain RN documented in this encounter Miscellaneous Notes * Telephone Encounter - Carly Bower RN - 02/01/2024 12:44 PM EST Current Health Enrollment Screening Contacted patient regarding the following: As part of your enrollment, your Care Team would like toprovide you with tools for us to monitor important vital signs like your oxygen levels, your heart rate, respiration rate, your skin temperature, your blood pressure, your weight, and how much you'removing. These tools will help to manage early changes in both acute and chronic conditions. Outcome of Enrollment Screening: Agreeable to Enroll: Device(s): Nonin Pulse Oximeter Enrollment Diagnosis: Pneumonia Method of Delivery: On-Hand Kit Delivery documented in this encounter Plan of Treatment Upcoming Encounters Date Type Department Care Team (Late st Contact Info) Description 02/08/2024 12:30 PM EST Home Visit [facility] [address] at [address] [place] [address] Shira Hu, RN [address] [place] [address] 04/02/2024 9:00 AM EST [facility] Visit [facility] [address] [place] [address] Mainor Marte PA-C [address] [place] [address] 07/24/2024 11:30 AM EDT Office Visit Urology, [facility] [address] [place] [address] Sigifredo Wright MD [address] [place] [address] Health Maintenance Due Date Last Done Comments Hepatitis C Screening 06/11/1973 Cologuard 06/11/2000 Colonoscopy 06/11/2000 Colorectal Cancer Screening 06/11/2000 Fecal Occult Blood Test 06/11/2000 Sigmoidoscopy 06/11/2000 Zoster Vaccines (1 of 2) 06/11/2005 Influenza Vaccine (FLU shot) (#1) 2023 02/06/2020, 12/09/2017, 11/28/2015, Additional history exists Depression Screening 12/04/2024 12/05/2023 Lipid Panel 10/08/2025 10/08/2020 Diabetes Screening 11/28/2026 11/29/2023, 0 11/29/2023, 11/29/2023, Additional history exists DTap/Tdap Vaccines (2 - Td or Tdap) 07/01/2028 07/01/2018 Pneumococcal Vaccine: 65+ Years Completed 06/13/2020, 01/28/2013 AAA Screening Completed 11/05/2022 COVID-19 Vaccine Completed 11/18/2023, , 04/15/2020 HPV (Gardasil) Vaccine Aged Out No lo nger eligible based on patient's age to complete this topic Hepatitis B Vaccine Aged Out No longe r eligible based on patient's age to complete this topic MENINGOCOCCAL (MENACTRA/MENVEO) Aged Out No longer eligible based on patient's age to complete this topic documented as of this encounter Medical Devices Implanted Type Area Rib Trim Separator Device Identifier Shelf Expiration Date Model / Serial / Lot Cytelisa Wndmtx 1lyr 7x10cm - [id number] - [id number] Implanted:Qty: 1 on 11/29/2023 by James Gooden DO at OR [facility] [place] Right: Mouth [employer] [id number] 05/04/2025 [id number] / [id number] / [id number] documented as of this encounter Advance Directives * Full Code (Latest Code Status on File) Date Activated Date Inactivated Comments 11/29/2023 11:41 AM 12/01/2023 1:26 PM This order reflects the patients wishes and were consensually agreed upon. Question Answer Comments Discussion of Advance Direct rohit occurred with: Not Discussed due to patient's condition Care Teams Aluminum Siding Mechanic Relationship Specialty Start Date End Date Aggie Mccollum MD [address] [place] [address] PCP - General Family Medicine 09/23/22 documented as of this encounter
[2024-02-02] MEDS ORDERED: FLUCONAZOLE 200 MG/100 ML BAG IV SCH (20:00)
[2024-02-03 07:05] LABS: Hematocrit (blood only) 31.7 % (42.0-52.0); Hemoglobin 10.6 g/dl (14.0-18.0); Mean Corpuscular Hemoglobin 28.6 pg (25.0-34.0); Mean Corpuscular Hgb Conc 33.4 g/dL (32.0-36.0); Mean Corpuscular Volume 85.7 fL (80.0-100.0); Mean Platelet Volume 9.9 fL (9.4-12.4); Platelet Count 178 K/uL (130-400); RDW Standard Deviation 40.2 fL (36.4-46.3); White Blood Count 5.23 K/ul (4.8-10.8)
[2024-02-03 07:19] LABS: BUN Creatinine Ratio 15.9 (10-20); Calcium 8.6 mg/dl (8.6-10.3); Creatinine Clr Calc Pharmacy 106.3 ml/min; Potassium 4.2 mmol/L (3.5-5.1)
[2024-02-03 07:21] LABS: Immature Granulocytes # (auto) 0.02 K/uL (0.01-0.20); Immature Granulocytes % (auto) 0.4 %; Lymphocytes % (auto) 3.8 %; Monocytes # (auto) 0.21 K/uL (0.11-0.59); Neutrophils % (auto) 91.8 %
--- NOTE | 2024-02-03 09:03 | Pulmonology Progress Note ---
Date of Service February 03, 2024 Assessment & Plan (1) Parainfluenza: (2) Pneumonia: Laterality: bilateral Lung location: unspecified part of lung P neumonia type: due to unspecified organism Qualified Code(s): J18.9 - Pneumonia, unspecified organism (3) Bronchiectasis: (4) Chronic bronchitis: (5) Acute on chronic respiratory failure with hypoxia: (6) COPD (chronic obstructive pulmonary disease): COPD type: unspecified COPD Qualified Code(s): J44.9 - Chronic obstructive pulmonary disease, unspecified Plan Impression: 68-year-old male with very severe airflow obstruction admitted with exacerbation of COPD and patchy parenchymal opacities concerning for pneumonia. Recommendations: 1. Pneumonia: Continue Zosyn/azithromycin. Anticipate 7-day course. Patient is at risk for Pseudomonas given structural lung disease, recent hospitalization, and recent antibiotics. Chronic azithromycin therapy might be a consideration. Supportive care only for parainfluenza which may have been a precipitating event 2. Bronchiectasis: Continue pulmonary toilet clearance techniques. Continue Mucinex and hypertonic saline. Will add flutter valve and vest therapy to see if this offers the patient a clinical benefit. 3. A follow-up CT scan should be obtained probably in about 8 to 12 weeks to ensure clearance of the parenchymal opacities. 4. Continue oxygen titrated to maintain saturations at or above 90%. 5. COPD: Continue Solu-Medrol, nebulized budesonide and Perforomist. Continue Incruse. Continue nebulized DuoNebs on an as-needed basis. Low on theophylline for now 6. Increase activity. Ambulate as tolerated. Out of bed to chair is much as possible. 7. Thrush: Discontinue clotrimazole abdirahman and replace with nystatin swish and swallow/spit. Will continue to follow with this patient during his hospitalization. Will free to contact us with questions or concerns Admission and Anticipated Discharge Date Admission Date: February 01, 2024 Subjective Patient seen and examined. He continues to have issues with difficulty clearing secretions and feeling that he is wheezing despite maximal medical therapy. Unclear how much of this might be upper airway related. He is coughing but not producing any significant phlegm. Review of Systems 2 Review of Systems: All systems reviewed & are unremarkable except as noted in Subjective Physical Exam 2 Constitutional: + frail appearing; no acute distress Neck: trachea midline, no thyromegaly Respiratory: no respiratory distress, no labored breathing and not tachypneic Auscultation: + rhonchi and + wheezes Cardiovascular: RRR, no murmur, no edema Gastrointestinal (Abdomen): normal bowel sounds, soft, nontender, no hepatosplenomegaly Musculoskeletal: Extremities: extremities normal to inspection Skin: no rashes, warm and dry Neurologic: Nonfocal exam Lymphatic: no cervical lymphadenopathy Results & Data Results & Data Vital Signs (Past 12 Hours) Vital Signs Temp Pulse Pulse Resp BP Pulse Ox O2 Del Method 02/03/24 08:08 36.6 C 113 H 94 H 110/55 L 94 Nasal Cannula 02/03/24 06:52 103 H 20 91 Nasal Cannula 02/03/24 04:48 36.8 C 105 H 18 110/58 L 90 Nasal Cannula 02/03/24 01:54 103 H 17 96 Nasal Cannula 02/02/24 22:49 36.6 C 90 18 104/55 L 95 Nasal Cannula 02/02/24 21:54 82 02/02/24 21:15 Nasal Cannula O2 Flow Rate 02/03/24 08:08 3.0 02/03/24 06:52 2 02/03/24 04:48 2 02/03/24 01:54 2 02/02/24 22:49 2 02/02/24 21:54 02/02/24 21:15 2 Laboratory Results 02/03/24 06:34 02/03/24 06:34 Diagnostic Findings No new imaging PG Care Time/CCT Total # of Minutes Spent Total Time Spent with Patient: Total time spent is greater than 50% in coordination of care (as documented) at patient's floor/unit and/or counseling patient: Coding Level of Care Code 93531 SUB INP/OBS CARE 235MIN Diagnoses Parainfluenza B34.8 Pneumonia J18.9 Laterality: bilateral Lung location: unspecified part of lung Pneumonia type: due to unspecified organism Bronchiectasis J47.9 Chronic bronchitis J42 Acute on chronic respiratory failure with hypoxia J96.21 Chronic obstructive pulmonary disease, unspecified COPD type J44.9 COPD type: unspecified COPD
[2024-02-03] MEDS: NYSTATIN SUSP 500,000 U/5 ML UDC PO SCH (09:37)
[2024-02-03] MEDS: FUROSEMIDE INJ 20 MG/2 ML VIAL IV SCH (09:38)
[2024-02-03] MEDS ORDERED: METOPROLOL SUCC 25MG EXT REL TAB PO STA (10:46)
[2024-02-03] MEDS: METOPROLOL SUCC 25MG EXT REL TAB PO STA (11:01)
--- NOTE | 2024-02-03 12:47 | Hospitalist Progress Note ---
Date of Service February 03, 2024 Assessment & Plan (1) Parainfluenza: Plan: Positivity on BioFire. Difficult to say if this has aggravated his respiratory status but it could have. Symptomatic treatment (2) Pneumonia: Plan: Possible on admission. He is now on Zosyn and azithromycin. No sputum produced for culture so far. Will continue oral azithromycin indefinitely at discharge (3) Acute hyponatremia: Plan: Mild. Improving. Serum osmolarity 280. Will follow (4) Oral candidiasis: Plan: Currently on nystatin swish and swallow. Symptomatic care (5) Chronic respiratory failure with hypoxia: Plan: Currently on 3 L oxygen per minute per nasal cannula with oxygen saturation 96%. Plan Hopeful discharge to home within the next day or 2 Admission and Anticipated Discharge Date Admission Date: February 01, 2024 Subjective Alert and oriented. No change in clinical status. Pulmonary entry noted. He states he takes metoprolol XL 50 mg daily at home, not 25 mg. Dosage has been adjusted. Will repeat chest x-ray again tomorrow, February 03. He is anxious to go home Review of Systems 2 Review of Systems: Constitutionalno fever or chills ENTno blurred vision, no double vision, no epistaxis, no sore throat Respiratorynonproductive cough. Dyspnea on exertion. No hemoptysis. Cardiacno palpitations, no chest pain, no syncope Bhargav nausea, vomiting, diarrhea, melena, hematochezia GUno urinary retention, no urinary incontinence, no dysuria, no hematuria Musculoskeletalno joint pain, no muscle tenderness Skinno bruising, no rashes, no pruritus Neurono isolated weakness, no paresthesia, no weakness Psychno depression, no anxiety Physical Exam 2 Physical Exam: General-alert and oriented x3, no fever, no chills HEENT-head atraumatic and normocephalic, pupils equal and reactive to light, extraocular muscles intact Neck-no lymphadenopathy or thyromegaly, trachea midline Chest-bilateral rhonchi and expiratory wheezes. Diminished breath sounds. No inspiratory rales. Cardiac-regular rate and rhythm, normal S1 and S2 Abdomen-normal bowel sounds, no hepatosplenomegaly Extremities-no cyanosis, clubbing, or edema Neuro-cranial nerves II through XII intact, motor and sensory function within normal limits, strength symmetrical, no focal deficits Psych-normal affect, normal mood Results & Data Results & Data Vital Signs (Past 12 Hours) Vital Signs Temp Pulse Resp BP Pulse Ox O2 Del Method O2 Flow Rate 02/03/24 11:52 36.5 C 97 H 19 125/68 95 Nasal Cannula 3.0 02/03/24 11:00 Nasal Cannula 2 02/03/24 08:08 36.6 C 113 H 94 H 110/55 L 94 Nasal Cannula 3.0 02/03/24 06:52 103 H 20 91 Nasal Cannula 2 02/03/24 04:48 36.8 C 105 H 18 110/58 L 90 Nasal Cannula 2 02/03/24 01:54 103 H 17 96 Nasal Cannula 2 Laboratory Results 02/03/24 06:34 02/03/24 06:34 PG Care Time/CCT Total # of Minutes Spent Total Time Spent with Patient: Total time spent is greater than 50% in coordination of care (as documented) at patient's floor/unit and/or counseling patient: Coding Level of Care Code 92294 SUB INP/OBS CARE 2/35MIN Diagnoses Parainfluenza B34.8 Pneumonia J18.9 Laterality: bilateral Lung location: unspecified part of lung Pneumonia type: due to unspecified organism Acute hyponatremia E87.1 Oral candidiasis B37.0 Chronic respiratory failure with hypoxia J96.11 (2) Pneumonia Laterality: bilateral Lung location: unspecified part of lung Pneumonia type: due to unspecified organism Qualified Code(s): J18.9 - Pneumonia, unspecified organism
[2024-02-03] MEDS ORDERED: CLOTRIMAZOLE 10 MG TROCHE BUCCAL SCH (13:00)
[2024-02-04 07:21] LABS: Hematocrit (blood only) 34.2 % (42.0-52.0); Hemoglobin 11.6 g/dl (14.0-18.0); Mean Corpuscular Hemoglobin 28.9 pg (25.0-34.0); Mean Corpuscular Hgb Conc 33.9 g/dL (32.0-36.0); Mean Corpuscular Volume 85.1 fL (80.0-100.0); Mean Platelet Volume 9.3 fL (9.4-12.4); Platelet Count 238 K/uL (130-400); RDW Standard Deviation 40.1 fL (36.4-46.3); Red Blood Count 4.02 M/uL (4.70-6.10); White Blood Count 6.25 K/ul (4.8-10.8)
[2024-02-04 07:43] VITALS: RESP 18
[2024-02-04 07:45] LABS: Immature Granulocytes # (auto) 0.01 K/uL (0.01-0.20); Immature Granulocytes % (auto) 0.2 %; Lymphocytes # (auto) 0.23 K/uL (1.20-3.40); Lymphocytes % (auto) 3.7 %; Monocytes # (auto) 0.21 K/uL (0.11-0.59); Monocytes % (auto) 3.4 %; Neutrophils % (auto) 92.7 %
[2024-02-04 07:50] LABS: Calcium 8.9 mg/dl (8.6-10.3); Potassium 4.4 mmol/L (3.5-5.1)
[2024-02-04 07:56] LABS: BUN Creatinine Ratio 18.9 (10-20); Creatinine Clr Calc Pharmacy 96.6 ml/min
--- NOTE | 2024-02-04 08:18 | XRay Report ---
EXAM: Radiograph of the Chest 1 View INDICATION: COPD exacerbation. TECHNIQUE: Frontal view of the chest. COMPARISON: 02/01/2024 FINDINGS: Lungs and pleural spaces: Stable emphysematous disease. Persistent but improved patchy infiltrates in the right upper lobe. Stable infiltrates in both lung bases. Very small bilateral pleural effusions now present. No pneumothorax. Heart: Stable prominent cardiac shadow. Mediastinum: Normal contour. Bones/joints: No fracture, erosion or dislocation. Soft tissues: No abnormality noted. No radiopaque foreign body noted. Vasculature: Stable ectatic aorta. Upper abdomen: No abnormality noted. IMPRESSION: 1. Improved right upper and stable bilateral basilar pneumonia. 2. New small bilateral pleural effusions. ACT 112: Negative or not required by law. Electronically signed by Allie Aleman 02-04-2024 08:17 AM
[2024-02-04] MEDS: METOPROLOL SUCC 50MG EXT REL TAB PO SCH (08:46)
--- NOTE | 2024-02-04 10:06 | Pulmonology Progress Note ---
Date of Service February 04, 2024 Assessment & Plan (1) Parainfluenza: (2) Pneumonia: Laterality: bilateral Lung location: unspecified part of lung P neumonia type: due to unspecified organism Qualified Code(s): J18.9 - Pneumonia, unspecified organism (3) Bronchiectasis: (4) Chronic bronchitis: (5) Acute on chronic respiratory failure with hypoxia: (6) COPD (chronic obstructive pulmonary disease): COPD type: unspecified COPD Qualified Code(s): J44.9 - Chronic obstructive pulmonary disease, unspecified Plan Impression: 68-year-old male with very severe airflow obstruction admitted with exacerbation of COPD and patchy parenchymal opacities concerning for pneumonia. Recommendations: 1. Pneumonia: Continue Zosyn/azithromycin. Anticipate 7-day course. Patient is at risk for Pseudomonas given structural lung disease, recent hospitalization, and recent antibiotics. Chronic azithromycin therapy might be a consideration. Supportive care only for parainfluenza which may have been a precipitating event 2. Bronchiectasis: Continue pulmonary toilet clearance techniques. Continue Mucinex and hypertonic saline. 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 3. A follow-up CT scan should be obtained probably in about 8 to 12 weeks to ensure clearance of the parenchymal opacities. 4. Continue oxygen titrated to maintain saturations at or above 90%. 5. COPD: Continue Solu-Medrol, nebulized budesonide and Perforomist. Continue Incruse. Continue nebulized DuoNebs on an as-needed basis. The patient's complaints are continued cough and congestion however I do not see evidence of inspissated secretions on his CT scan and most of his adventitial breath sounds are emanating from an upper airway source. Given his postnasal drip will pursue a trial of decongestants antihistamines and topical nasal steroids to see if this offers him a benefit 6. Increase activity. Ambulate as tolerated. Out of bed to chair is much as possible. Patient is completed pulmonary rehab previously but has not noted any significant benefit. Do not think he is a candidate for lung transplant. 7. Thrush: Continue nystatin Will continue to follow with this patient during his hospitalization. Will free to contact us with questions or concerns Admission and Anticipated Discharge Date Admission Date: February 01, 2024 Subjective Patient seen and examined. EMR reviewed. The patient is seen sitting up at the bedside with his in attendance. He continues to complain of rhonchorous breathing and cough but is not really producing any phlegm. He does endorse significant postnasal drip and rhinorrhea. Shortness of breath is at baseline. He states he is walking back and forth to the restroom but will note that his oxygen saturations will drop down into the low 80% range despite using supplemental oxygen at 3 L/min. This is not far from his baseline. Review of Systems 2 Review of Systems: All systems reviewed & are unremarkable except as noted in Subjective Physical Exam 2 Constitutional: WD/WN, vitals as above Neck: trachea midline, no thyromegaly Respiratory: + cough; no respiratory distress, no lab ored breathing and not tachypneic Auscultation: + diminished lung sounds Rhonchi are emanating primarily from the upper airway, neck area. Lower lung mcgregor are diminished but without significant wheezing Cardiovascular: RRR, no murmur, no edema Gastrointestinal (Abdomen): normal bowel sounds, soft, nontender, no hepatosplenomegaly Musculoskeletal: Extremities: extremities normal to inspection Skin: no rashes, warm and dry Neurologic: Nonfocal exam Lymphatic: no cervical lymphadenopathy Results & Data Results & Data Vital Signs (Past 12 Hours) Vital Signs Temp Pulse Resp BP Pulse Ox O2 Del Method O2 Flow Rate 02/04/24 07:42 36.5 C 89 18 127/76 94 Nasal Cannula 3 02/04/24 07:17 96 H 17 94 Nasal Cannula 2 02/04/24 03:06 36.5 C 98 H 18 142/67 H 93 Nasal Cannula 02/04/24 00:53 96 H 18 94 Nasal Cannula 2 02/03/24 22:51 36.3 C L 102 H 21 102/56 L 90 Nasal Cannula Laboratory Results 02/04/24 07:01 02/04/24 07:01 Diagnostic Findings No new imaging PG Care Time/CCT Total # of Minutes Spent Total Time Spent with Patient: Total time spent is greater than 50% in coordination of care (as documented) at patient's floor/unit and/or counseling patient: Coding Level of Care Code 07093 SUB INP/OBS CARE 2/35MIN Diagnoses Parainfluenza B34.8 Pneumonia J18.9 Laterality: bilateral Lung location: unspecified part of lung Pneumonia type: due to unspecified organism Bronchiectasis J47.9 Chronic bronchitis J42 Acute on chronic respiratory failure with hypoxia J96.21 Chronic obstructive pulmonary disease, unspecified COPD type J44.9 COPD type: unspecified COPD
--- NOTE | 2024-02-04 10:28 | Discharge Summary ---
Discharge Summary Date of Service February 04, 2024 Principal Dx & Hospital Course #1 = Principal Diagnosis (1) Parainfluenza: Positivity on BioFire. Difficult to say if this has aggravated his respiratory status but it could have. Symptomatic treatment (2) Pneumonia: Possible on admission. Treated while hospitalized with Zosyn and azithromycin. No sputum produced for culture so far. Will continue oral azithromycin indefin itely at discharge (3) Acute hyponatremia: Mild on admission. Now normalized. Serum osmolarity 280. Serial labs while hospitalized (4) Oral candidiasis: Currently on nystatin swish and swallow. Will continue at discharge since he is going to be on prednisone. Symptomatic care (5) Chronic respiratory failure with hypoxia: Currently on 3 L oxygen per minute per nasal cannula with oxygen saturation 96%. 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 He presents to the emergency department with worsening shortness of breath and generalized fatigue over the past week as noted above. Significant testing in emergency department shows a sodium 126, BioFire test positive for parainfluenza type IV Discharge Exam General-alert and oriented x3, no fever, no chills HEENT-head atraumatic and normocephalic, pupils equal and reactive to light, e xtraocular muscles intact Neck-no lymphadenopathy or thyromegaly, trachea midline Chest-bilateral rhonchi and expiratory wheezes. Diminished breath sounds. No inspiratory rales. Cardiac-regular rate and rhythm, normal S1 and S2 Abdomen-normal bowel sounds, no hepatosplenomegaly Extremities-no cyanosis, clubbing, or edema Neuro-cranial nerves II through XII intact, motor and sensory function within normal limits, strength symmetrical, no focal deficits Psych-normal affect, normal mood Discharge Plan Discharge Items Patient Disposition: Home - Self-Care Reason For Visit: ACUTE CHRONIC RESP FAILURE,PARAINFLUENZA,SEC Discharge Diagnosis: Acute exacerbation COPD, viral illness, hyponatremia, oral candidiasis Activity: Resume your previous activity Non-emergency contact: Primary Care Provider and Hot Saw Operator Call non-emergency contact if: you have any medication questions and your symptoms worsen Follow-up/Referrals: Aggie Mccollum MD [Primary Care Provider] - Diet: Regular Addtl Attending Provider Instructions: Take azithromycin antibiotic daily to hopefully suppress lung infection. Take prednisone 20 mg twice daily for now. This dosage will eventually be decreased. Use nystatin suspension to prevent thrush while on prednisone Pending Studies at Discharge: No Stand-Alone Forms: My [facility] Layer, Smoking Cessation Medications and DC Order Prescriptions: New nystatin 100,000 unit/mL Suspension 5 ml PO QID Qty: 240 0RF azithromycin 250 mg Tablet 250 mg PO QAM Qty: 15 0RF Continued ropinirole 0.5 mg tablet 0.5 mg PO PM Qty: 90 3RF (DME) nebulizers Misc See Rx Instructions .Route Qty: 1 0RF Rx Instructions: please include accessories. betamethasone dipropionate 0.05 % cream 1 applic topical BID PRN (Reason: skin irritation) Qty: 15 3RF metoprolol succinate [Toprol XL] 50 mg tablet extended release 24 hr 50 mg PO QAM Qty: 90 3RF levocetirizine 5 mg tablet 5 mg PO DAILY PRN (Reason: Allergy Symptoms) Qty: 90 3RF Rx Instructions: Take daily for 10 days then PRN atorvastatin 10 mg tablet 10 mg PO HS Qty: 90 3RF ipratropium-albuterol 0.5 mg-3 mg(2.5 mg base)/3 mL solution for nebulization 3 ml INH QID PRN (Reason: shortness of breath or wheezing) Qty: 1080 1RF lorazepam 0.5 mg tablet 0.5 mg buccal DAILY Qty: 30 0RF Rx Instructions: Take one pill one hour prior to each radiation treatment. (DME) Oxygen Home Liters Per Minute See Rx Instructions .Route Rx Instructions: 3L continuous via NC, ok to titrate up to 5L with activity, (09/17/2022) Per patient he is using 2 liters at this time. (DME) Portable Oxygen Misc See Rx Instructions .MEDSUPPLY Qty: 1 0RF Rx Instructions: Oxygen 4 liters continuous via nasal cannula on exertion with portable concentrator. TERRANCE 99 aspirin [Adult Low Dose Aspirin] 81 mg tablet,delayed release (DR/EC) 81 mg PO QAM (DME) Vibration Vest Misc See Rx Instructions .Route Qty: 1 0RF Rx Instructions: As directed multivitamin Tablet 1 tab PO QAM guaifenesin [Mucinex] 1,200 mg Tablet Extended Release 12hr 1,200 mg PO BID tamsulosin 0.4 mg capsule 0.4 mg PO QAM cholecalciferol (vitamin D3) [Vitamin D3] 25 mcg (1,000 unit) Tablet 25 mcg PO DAILY formoterol fumarate [Perforomist] 20 mcg/2 mL Solution For Nebulization 20 mcg inhalation BIDR Qty: 120 0RF sodium chloride 7 % Solution For Nebulization 4 ml NEB BIDR Qty: 240 0RF budesonide 0.5 mg/2 mL Suspension For Nebulization 0.5 mg NEB BIDR Qty: 120 0RF Incruse Ellipta 62.5 mcg/actuation blister with device 1 inh inhalation QAM chlorhexidine gluconate 0.12 % mouthwash See Rx Instructions .ROUTE .COMPLEX Rx Instructions: SWISH AND SPIT 15 ML 4 TIMES A DAY; AFTER ALL 3 MEALS AND AT BEDTIME DO NOT SWALLOW Discontinued azithromycin 250 mg tablet 250 mg PO 3XWK Rx Instructions: 250 mg PO 1 tab p.o. on Tpocnk-Kjuvktjis-Sptryv; Discharge Orders: Discharge Order (Routine); Ordered 02/04/24 Ordered By: Noam Waters/Other Patient Handouts: Chest and Lung Problems, COPD: Chronic Coughing, COPD: Coping with Mucus, COPD: Wheezing and Chest Tightness, COPD Quit Smoking, Preventing Pneumonia Admission Data Admit Date/Time: 02/01/24 20:38 Attending Provider: Noam Sanchez Admit Provider: Carlos Sabillon Primary Care Provider: Aggie Mccollum Other Providers: Carlos Sabillon; Fred Wang; Franco Blackburn; Griffin Barnes; Colt Seo; Misti Berg; Ann Gusman; Rodney Piedra; Damian Marie; Kristi Leone Hospital Stay Data Consultations 02/01/24 17:49 ED Decision to Admit Stat 02/02/24 08:45 Consult Pulmonology Routine Diagnostic Imagining Performed 02/01/24 16:53 CT angio chest PE protocol Stat Pending Results Patient Have Any Pending Studies at Discharge: No Discharge Instructions Given to Patient (Per Discharging Provider) Take azithromycin antibiotic daily to hopefully suppress lung infection. Take prednisone 20 mg twice daily for now. This dosage will eventually be decreased. Use nystatin suspension to prevent thrush while on prednisone Total Time Total Time Spent Total Time Spent (In Minutes): 45 minutes Coding Level of Care Code 11941 INP/OBS DISCH >30 MIN Diagnoses Parainfluenza B34.8 Pneumonia J18.9 Laterality: bilateral Lung location: unspecified part of lung Pneumonia type: due to unspecified organism Acute hyponatremia E87.1 Oral candidiasis B37.0 Chronic respiratory failure with hypoxia J96.11
[2024-02-04 11:25] VITALS: BP 122/80; TEMP 97.5; O2SAT 96
[2024-02-04] MEDS: FLUTICASONE PROPIONATE NA SPR 16 GM BTL SCH (11:41)
[2024-02-04] MEDS: diphenhydrAMINE Capsule 25 MG CAP PO SCH (11:41)
[2024-02-04] MEDS: OXYMETAZOLINE 0.05% 30 ML BTL SCH (11:41)
[2024-02-04 13:36] VITALS: PULSE 83
== END 2024-02-04 13:36 | disposition home or self-care (01) | DRG 193 ==
LOC: ED 15:35 → SUATTDRO 20:38 → 2S 20:38